=== PATIENT | female | born 1950 | race Hispanic/Latino ===

== ENCOUNTER 2020-01-27 11:09 | Inpatient (IN) | payer MEDICARE ==
[~2020-01-27] VITALS: Ht 152.4 cm; Wt 77.1 kg
--- NOTE | 2020-01-27 11:12 | Emergency Department Note ---
History of Present Illnes History of Present Illness Chief Complaint: General Medicine Complaints History of Present Illness This is a 69 year old female brought from dialysis center by [facility] for generalized weakness. Per son, patient had been increasingly week and had to be assisted from the floor this AM. Patient and son poor historian. Enroute per meganian patient was in atrial fibrillation with RVR with SPO2 of 85% . Seen at bedside with SR 85 bpm. Patient lethargic and unable to provide meaningful history . Historian: Family Member, Ancillary Services Manager/EMS Arrival Mode: [facility] Revenue Collector Required: Yes Onset (how long ago): day(s) (5) Severity: severe Progression: worsening Chronicity: new Context: Reports recent illness Relieving factors: none Exacerbating factors: none Associated symptoms: Reports weakness Past Medical/Family History Physician Review I have reviewed the patient's past medical and family history. Any updates have been documented here. Past Medical History Clinical Suspicion of Infectio: Yes New/Unexplained Change in Ment: Yes Past Medical History: Hypertension, ESRD, Depression Past Surgical History: None Social History Smoking Cessation: Never Smoker Alcohol Use: None Any Illegal Drug Use: No Review of Systems Review of Systems Constitutional: Reports weakness EENTM: Reports no symptoms Cardiovascular: Reports no symptoms Respiratory: Reports no symptoms Gastrointestinal: Reports no symptoms Genitourinary: Reports no symptoms Musculoskeletal: Reports no symptoms Integumentary: Reports no symptoms Neurological: Reports no symptoms Psychological: Reports no symptoms Endocrine: Reports no symptoms Hematological/Lymphatic: Reports no symptoms Physical Exam Related Data Allergies: Coded Allergies: No Known Allergies (Unverified , 01/27/20) Triage Vital Signs Vital Signs Date Time Temp Pulse Resp B/P (MAP) Pulse Ox O2 Delivery O2 Flow Rate FiO2 01/27/20 11:11 97.2 88 14 110/68 82 Nasal Cannula 6.0 Vital signs reviewed: Yes Physical Exam CONSTITUTIONAL Constitutional: Present morbidly obese, Present distressed, Present ill appearing HENT HENT: Present normocephalic, Present atraumatic, Present oropharynx clear/epi st, Present nose normal HENT L/R: Present left ext ear normal, Present right ext ear normal EYES Eyes: Reports PERRL, Reports conjunctivae normal NECK Neck: Present ROM normal PULMONARY Pulmonary: Present effort normal, Present breath sounds normal CARDIOVASCULAR Cardiovascular: Present regular rhythm, Present heart sounds normal, Present capillary refill normal, Present normal rate GASTROINTESTINAL Abdominal: Present soft, Present nontender, Present bowel sounds normal GENITOURINARY Genitourinary: Present exam deferred SKIN Skin: Present warm, Present dry MUSCULOSKELETAL Musculoskeletal: Present ROM normal, Present edema NEUROLOGICAL Neurological: Present no gross motor or sensory deficits, Present weakness PSYCHOLOGICAL Psychological: Present mood/affect normal, Present judgement normal Results Laboratory Lab results reviewed: Yes Imaging Imaging results reviewed: Yes Impressions [place] [id number] Patient Name: TAY HERNANDEZ MR #: [id number] : 1950 Age/Sex: 69/F Req #: [id number] Adm Physician: Ordered by: DINA ALDANA DO Report #: [id number] Location: ER Room/Bed: _ Procedure: [id number] DX/CHEST SINGLE (PORTABLE) Exam Date: 01/27/20 Exam Time: 1130 REPORT STATUS: Signed TECHNIQUE: Frontal view of the chest. INDICATION: ^ERMD ORDER ^[id number] ^1130 ^Y COMPARISON: None DISCUSSION: Limited evaluation due to portable technique. Lines and hardware: Multiple overlying EKG leads are noted Heart and mediastinum: Cardiomediastinal silhouette is mildly enlarged. Mild central vascular congestion is noted. Trachea projects midline. Thoracic aorta is tortuous with calcifications of the aortic knob. Lungs and pleura: Low lung volumes. Negative for focal consolidation, large effusion or pneumothorax. Soft tissues and bones: No acute abnormality. IMPRESSION: 1. Negative for acute intrathoracic process. 2. Cardiomegaly. Signed by: Jeimy Ramirez MD on 01/27/2020 12:23 PM Dictated By: JEIMY RAMIREZ MD [id number] Transcribed By: CARROLL on 01/27/20 1223 COPY TO: DINA ALDANA DO~ Procedures 12 Lead ECG Interpretation ECG Interpretation : ECG: ECG 1 Revenue Collector: Interpreted by ED physician Date: Jan 27, 2020 Time: 11:44 Prior ECG tracings: reviewed Rhythm: sinus rhythm Ectopy: PJC's Rate: normal BPM: 90 QRS axis: normal ST segments normal: Yes T waves normal: Yes Clinical Impression: non-specific ECG Central Line Placement Central Line Location: right femoral Time out performed: No Patient Placed on Monitor/Puls: Yes MD Prep: gloves Central Line Prep: Povidone-Iodine 1%, sterile drapes applied Central Line Lumen Inserted: triple Post Procedure: sutured in place, good blood return, all ports aspirated/flushed/capped, sterile dressing applied Post Procedure X-ray: tip of catheter in good condition Patient tolerated procedure: well Critical Care Time Total Critical Care Time (min): 31 Critcal care necessary due to: circulatory failure, metabolic failure, renal failure, respiratory failure, sepsis, shock Critcal care time spent by me: develop tx plan w patient/surrogate, discussion w consultants, discussion w primary provider, evaluation patient response to tx, examination of patient, obtaining hx from patient/surrogate, order/perform tx or interventions, order/review laboratory studies, order/review radiographic studies, pulse oximetry, re-evaluation of patient condition Assessment & Plan Medical Decision Making MDM Diff dx : hyperkalemia, sepsis, pneumonia, intracranial brain pathology, UTI, shock Reassessment Reassessment Case d/w Dr Nelson who states that his dialysis nurse will come and evaluate patient and will collect the peritoneal fluid. This was confirmed by his colleague Assessment & Plan Final Impression: (1) Sepsis (2) Hypokalemia (3) Anemia (4) Atrial fibrillation with RVR (5) ESRD on peritoneal dialysis Depart Disposition: ADMITTED Home Meds Active Scripts Cephalexin Monohydrate (KEFLEX) 500 Mg Capsule, 500 MG PO Q12H, #20 Prov:CHAYO ZAYAS MD 01/31/20 Reported Medications Furosemide (FUROSEMIDE) 40 Mg Tablet, 40 MG PO Daily, #30 TAB 01/27/20 Potassium Chloride (POTASSIUM CHLORIDE) 20 Meq Tab.er.prt, 20 MEQ PO DAILY 01/27/20 Glipizide (GLIPIZIDE) 5 Mg Tablet, 10 MG PO DAILY, TAB 01/27/20 Metformin Hcl (METFORMIN HCL) 500 Mg Tablet, 500 MG PO BID, #60 TAB 01/27/20 Calcitriol (CALCITRIOL) 0.5 Mcg Cap, 0.5 MG PO DAILY, CAP 01/27/20 Atorvastatin Calcium (ATORVASTATIN CALCIUM) 20 Mg Tablet, 40 MG PO HS, #30 TAB 01/27/20 Amitriptyline Hcl (AMITRIPTYLINE HCL) 25 Mg Tablet, 25 MG PO DAILY, #30 TAB 01/27/20 Hydralazine Hcl (HYDRALAZINE HCL) 10 Mg Tablet, 50 MG PO DAILY, #30 TAB 01/27/20 DINA ALDANA DO Jan 27, 2020 11:12
[2020-01-27] MEDS ORDERED: PIPER-TAZ 3.375 GM 50 ML IV STA (11:25)
[2020-01-27] MEDS ORDERED: SODIUM CHLORIDE 0.9% 1000ML 1,000 ML IV STA (11:35)
[2020-01-27 11:55] LABS: BASOPHILS % 0.3 % (0.0-1.0); EOSINOPHILS % 0.1 % (0.0-6.0); LYMPHOCYTES # (AUTO) 0.8 (1.0-3.2); LYMPHOCYTES % 7.8 % (18.0-39.1); MEAN CORPUSCULAR HEMOGLOBIN 28.7 pg (28-32); MEAN CORPUSCULAR HGB CONC 32.7 g/dL (31-35); MEAN CORPUSCULAR VOLUME 87.7 fL (81-99); MONOCYTES # (AUTO) 0.3 (0.2-0.8); MONOCYTES % 2.6 % (4.4-11.3); NEUTROPHILS # (AUTO) 8.5 (2.1-6.9); NEUTROPHILS % 88.6 % (38.7-80.0); PLATELET COUNT 328 x10e3/uL (140-360); RED BLOOD COUNT 1.95 x10e6/uL (3.6-5.1); RED CELL DISTRIBUTION WIDTH 15.1 % (11.7-14.4)
[2020-01-27 11:57] LABS: HEMOGLOBIN 5.6 g/dL (12.0-16.0)
[2020-01-27 11:58] LABS: HEMATOCRIT 17.1 % (34.2-44.1)
[2020-01-27] MEDS ORDERED: SODIUM CHLORIDE 0.9% 250ML 250 ML IV ONE (12:00)
[2020-01-27 12:08] LABS: INR 1.31; PROTHROMBIN TIME 16.9 seconds (11.9-14.5)
[2020-01-27 12:18] LABS: ALBUMIN 2.5 g/dL (3.5-5.0); ALBUMIN/GLOBULIN RATIO 0.9 (0.8-2.0); CREATININE, SERUM 8.31 mg/dL (0.57-1.11)
--- NOTE | 2020-01-27 12:27 | Diagnostic Imaging Report ---
TECHNIQUE: Frontal view of the chest. INDICATION: ^ERMD ORDER ^[id number] ^1130 ^Y COMPARISON: None DISCUSSION: Limited evaluation due to portable technique. Lines and hardware: Multiple overlying EKG leads are noted Heart and mediastinum: Cardiomediastinal silhouette is mildly enlarged. Mild central vascular congestion is noted. Trachea projects midline. Thoracic aorta is tortuous with calcifications of the aortic knob. Lungs and pleura: Low lung volumes. Negative for focal consolidation, large effusion or pneumothorax. Soft tissues and bones: No acute abnormality. IMPRESSION: 1. Negative for acute intrathoracic process. 2. Cardiomegaly. Signed by: Dylan Ramirez MD on 01/27/2020 12:23 PM
[2020-01-27] MEDS ORDERED: SODIUM CHLORIDE 0.9% 1000ML 1,000 ML IV SCH (12:30)
[2020-01-27] MEDS ORDERED: SODIUM CHLORIDE FLUSH 10 ML SYR INJ PRN (12:30)
[2020-01-27 12:36] LABS: B-TYPE NATRIURETIC PEPTIDE2 217.7 pg/mL (0-100)
[2020-01-27 12:38] LABS: ABG HCO3 19 mmol/L (22-26); ABG PCO2 26 mmHg (35-45); ABG PH 7.48 (7.35-7.45); ABG PO2 202 mmHg (80-105); ABG TCO2 20
[2020-01-27 12:40] LABS: CREATINE KINASE MB 2.5 ng/mL (0-5.0)
--- OUTSIDE RECORDS SUMMARY | 2020-01-27 12:41 | XMS REPORT | Clinical Summary ---
Author Author [facility] Organization [facility] Address Unknown Phone Unavailable Care Team Providers Care Preschool Assistant Director Name Role Phone Asked, No Pcp PCP Unavailable Allergies No Known Allergies Medications End Date Status Medication Sig Dispensed Refills Start Date Active potassium chloride Take 20 mEq 0 (K-DUR) 10 MEQ CR tablet by mouth daily. Active calcitrioL (ROCALTROL) Take 1 mcg by 0 0.5 MCG capsule mouth daily. Active ferric citrate (AURYXIA Take 420 mg 0 ORAL) by mouth 3 (three) times a day with meals. Active furosemide (LASIX) 40 mg Take 40 mg by 0 tablet mouth 2 (two) times a day. 08/29/2019 Discontinued (Stop Taking at Discharge) carvediloL (COREG) 25 MG Take 25 mg by 0 tablet mouth 2 (two) times a day with meals. 08/29/2019 Discontinued (Reorder) glipiZIDE (GLUCOTROL) 10 Take 10 mg by 0 MG tablet mouth 2 (two) times a day before meals. 08/29/2019 Discontinued (Reorder) atorvastatin (LIPITOR) 40 Take 40 mg by 0 MG tablet mouth nightly. 08/29/2019 Discontinued (Reorder) amitriptyline (ELAVIL) 25 Take 25 mg by 0 MG tablet mouth nightly. 08/29/2019 Discontinued (Stop Taking at Discharge) cefdinir (OMNICEF) 300 MG Take 300 mg 0 capsule by mouth daily. 09/28/2019 atorvastatin (LIPITOR) 40 Take 1 tablet 30 tablet 0 202 MG tablet (40 mg total) 0 by mouth nightly for 30 days. 09/28/2019 glipiZIDE (GLUCOTROL) 10 Take 1 tablet 60 tablet 0 202 MG tablet (10 mg total) 0 by mouth 2 (two) times a day before meals for 30 days. 09/28/2019 amitriptyline (ELAVIL) 25 Take 1 tablet 30 tablet 0 MG tablet (25 mg total) 0 by mouth nightly for 30 days. 09/28/2019 carvediloL (COREG) 6.25 Take 1 tablet 60 tablet 0 MG tablet (6.25 mg 0 total) by mouth 2 (two) times a day with meals for 30 days. 09/29/2019 aspirin 81 mg chewable Chew 1 tablet 30 tablet 0 0 tablet (81 mg total) 0 daily for 30 days. Active Problems Problem Noted Date Acute renal failure (ARF) 08/28/2019 Encounters Care Team Description Date Type Specialty Rigo Leung MD Abouelsaad, Mai Abdelmoneim E.S, MD ESRD (end stage renal disease) on dialys is (HCC) (Primary Dx); Weakness 08/28/2019 Hospital General Internal Pr jessica - Encounter 08/29/2019 Melissa Sellers NP 08/28/2019 Orders Only General Internal Me dicine after 01/26/2019 Social History Date Tobacco Use Types Packs/Day Years Used Never Smoker Smokeless Tobacco: Never Used Drinks/Week oz/Week Comments Alcohol Use Never Alcohol Habits Answer Date Recorded How often do you have a drink containing alcohol? Never 08/28/2019 How many drinks containing alcohol do you have on No t asked a typical day when you are drinking? How often do you have six or more drinks on one Not asked occasion? Sex Assigned at Date Recorded Not on file Industry Job Start Date Occupation Not on file Not on file Not on file Travel End Travel History Travel Start No recent travel history available. Last Filed Vital Signs Reading Time Taken Comments Vital Sign 109/53 08/29/2019 10:34 AM CDT Blood Pressure 72 08/29/2019 10:34 AM CDT Pulse 36.3 C (97.4 F) 08/29/2019 10:34 AM CDT Temperature 16 08/29/2019 10:34 AM CDT Respiratory Rate 100% 08/29/2019 10:34 AM CDT Oxygen Saturation - - Inhaled Oxygen Concentration 82.2 kg (181 lb 3.5 oz) 08/28/2019 8:04 PM CDT Weight 157.5 cm (5' 2") 08/28/2019 8:04 PM CDT Height 33.15 08/28/2019 8:04 PM CDT Body Mass Index Plan of Treatment Health Maintenance Due Date Last Done Comments DIABETIC RETINAL EYE EXAM 1951 DIABETIC FOOT EXAM 1961 URINE MICROALBUMIN 1961 BREAST CANCER SCREENING 2001 COLONOSCOPY SCREENING 2001 SHINGLES VACCINES (#1) 2001 65+ PNEUMOCOCCAL VACCINE 2016 08/25/2018 (2 of 2 - PPSV23) INFLUENZA VACCINE 02/13/2020 Procedures Comments Procedure Name Priority Date/Time Associated Diag nosis POC GLUCOSE Routine 08/29/2019 11:04 AM CDT POC GLUCOSE Routine 08/29/2019 6:21 AM CDT ESTIMATED GFR Routine 08/29/2019 5:56 AM CDT BASIC METABOLIC PANEL Routine 08/29/2019 5:56 AM CDT HC COMPLETE BLD COUNT Routine 08/29/2019 W/AUTO DIFF 5:56 AM CDT TROPONIN Timed 08/29/2019 2:03 AM CDT HEPATITIS B SURFACE AB, Routine 08/28/2019 QUANTITATIVE 11:00 PM CDT HEPATITIS B SURFACE STAT 08/28/2019 ANTIGEN 11:00 PM CDT POC GLUCOSE Routine 08/28/2019 9:[address] HEAD WO CONTRAST Routine 08/28/2019 8:51 PM CDT ESTIMATED GFR STAT 08/28/2019 8:34 PM CDT TROPONIN STAT 08/28/2019 8:34 PM CDT PROTHROMBIN TIME WITH INR STAT 08/28/2019 8:34 PM CDT LIPID PANEL STAT 08/28/2019 8:34 PM CDT COMPREHENSIVE METABOLIC STAT 08/28/2019 PANEL 8:34 PM CDT HC COMPLETE BLD COUNT STAT 08/28/2019 W/AUTO DIFF 8:34 PM CDT B NATRIURETIC PEPTIDE STAT 08/28/2019 8:34 PM CDT ECG 12-LEAD STAT 08/28/2019 8:20 PM CDT after 01/26/2019 Results * POC glucose (08/29/2019 11:04 AM CDT) Only the most recent of 3 results within the time period is included. [facility] POC glucose 207 (H) 65 - 100 mg/dL [place] Comment: CONGREGATIONAL Shuffle Board Operator Name: Sue Frias MULBERRY Device ID: [id number] HOSPITAL Specimen Blood Performing Organization Address City/[facility] Ph one Number [facility] DEPARTMENT OF [address] [place] [address] PATHOLOGY AND [facility] MEDICINE [address] * Estimated GFR (08/29/2019 5:56 AM CDT) Only the most recent of 2 results within the time period is included. [facility] Estimated GFR 6 (A) mL/min/1.73 m2 [place] Comment: CONGREGATIONAL Catergory Units [facility] G1 >=90 Normal or high G2 60-89 Mildly decreased G3a 45-59 Mildly to moderately decreased G3b 30-44 Moderately to severely decreased G4 15-29 Severely decreased G5 <15 Kidney failure The eGFR was calculated using the Chronic Kidney Disease Epidemiology Collaboration (CKD-EPI) equation. Interpretation is based on recommendations of the National Kidney Foundation-Kidney Disease Outcomes Quality Initiative (NKF-KDOQI) published in 2014. Specimen Performing Organization Address City/State/Zipcode Ph one Number [facility] DEPARTMENT OF [address] [place] [address] PATHOLOGY AND GENOMIC MEDICINE [address] * CBC with platelet and differential (08/29/2019 5:56 AM CDT) Only the most recent of 2 results within the time period is included. Pathologist [facility] WBC 7.1 4.2 - 11.0 k/uL [facility] RBC 3.04 (L) 4.04 - 5.86 m/uL [facility] HGB 9.1 (L) 11.5 - 15.3 g/dL [facility] HCT 28.3 (L) 34.0 - 45.0 % [facility] MCV 93.1 80.0 - 98.0 fL [facility] MCH 29.9 27.0 - 34.0 pg [facility] MCHC 32.2 31.5 - 36.5 g/dL [facility] RDW - SD 48.3 37.0 - 51.0 fL [facility] MPV 8.2 7.4 - 10.4 fL [facility] Platelet count 376 150 - 400 k/uL [facility] Nucleated RBC 0.00 /100 WBC [facility] Neutrophils 64.6 36.0 - 66.0 % [facility] Lymphocytes 23.6 (L) 24.0 - 44.0 % [facility] Monocytes 6.6 (H) 0.0 - 6.0 % [facility] Eosinophils 3.9 0.0 - 6.0 % [facility] Basophils 1.0 0.0 - 1.2 % [facility] Immature 0.3 0.0 - 1.0 % [place] granulocytes [facility] Specimen Blood Performing Organization Address City/State/Zipcode Ph one Number [facility] DEPARTMENT OF [address] [place] [address] PATHOLOGY AND GENOMIC MEDICINE [facility] [address] * Basic metabolic panel (08/29/2019 5:56 AM CDT) Sodium 135 135 - 150 mEq/L [facility] Potassium 3.6 3.5 - 5.0 mEq/L [facility] Chloride 93 (L) 98 - 112 mEq/L [facility] CO2 25 24 - 31 mmol/L [facility] Anion gap 17@ANIO (H) 7 - 15 mEq/L [facility] BUN 36 (H) 7 - 18 mg/dL [facility] Creatinine 6.40 (H) 0.50 - 0.90 mg/dL [facility] Glucose 217 (H) 65 - 100 mg/dL [facility] Calcium 7.6 (L) 8.8 - 10.2 mg/dL [facility] Specimen Blood Performing Organization Address City/State/[facility] Ph one Number [facility] DEPARTMENT OF [address] [place] [address] PATHOLOGY AND GENOMIC MEDICINE [facility] [address] * Troponin (08/29/2019 2:03 AM CDT) Only the most recent of 2 results within the time period is included. Troponin 0.020 0.000 - 0.040 ng/mL [place] Comment: CONGREGATIONAL In patients suspected of MULBERRY having a myocardial HOSPITAL infarction, along with all other appropriate clinical measures and actions including ECG and other diagnostics as appropriate, measure Ultra TnI at 0 hrs and at 3 hrs. Myocardial infarction VERY LIKELY The 0 hr TnI level is > 0.10 ng/mL Myocardial infarction LIKELY The 0 hr TnI level is > 0.04 ng/mL and 3 hr level is increased or decreased by at least 0.020 ng/mL Myocardial infarction VERY UNLIKELY Both the 0 hr and 3 hr TnI levels <= 0.04 ng/mL(within normal limits) OR 0 hr is > 0.04 ng/mL and 3 hr is increased OR decreased by less than 0.020 ng/mL Specimen Blood Performing Organization Address City/[facility] Ph one Number [facility] [address] [place] [address] PATHOLOGY AND GENOMIC MEDICINE [address] * Hepatitis B surface Ab, quantitative (08/28/2019 11:00 PM CDT) Hepatitis B 494.43 IU/L [facility] surface Ab Comment: The anti-HBs is greater than or equal to 10 IU/L. This patient has either had an antibody response to HBV vaccination, received a transfusion, or has recovered from HBV infection. This patient should be considered immune to hepatitis B. An anti-HBs result greater than or equal to 10 IU/L implies immunity. For post-vaccination antibody testing guidelines for the general public refer to MMWR May 06, 2005/Vol. 54(No. 16);-23, and for healthcare workers refer to MMWR May 03, 2013/Vol. 62(No. 10);-19. Reference Interval: anti-HBs 9.99 IU/L or less ....... Negative 10.00 IU/L or greater .... Positive Results greater than 1,000.00 IU/L are reported as greater than 1,000.00 IU/L. This assay should not be used for blood donor screening, associated re-entry protocols, or for screening Human Cell, Tissues and Cellular and Tissue-Based Products (HCT/P). Performed by [facility], [address] [place] [id number] [email or web address], Mikael Matias MD, Lab. Director Specimen Serum Performing Organization Address [facility] Ph one Number [facility] [address] [place] [address] [facility] REF LAB [address] [place] [address] * Hepatitis B surface antigen (08/28/2019 11:00 PM CDT) Hepatitis B Non-reactive Non-reactive [place] surface Ag [facility] Specimen Blood Performing Organization Address City/[facility]/Zipcode Ph one Number [facility] DEPARTMENT OF [address] [place] [address] PATHOLOGY AND GENOMIC MEDICINE [facility] [address] [place] [address] HOSPITAL * CT Head Wo Contrast (08/28/2019 8:51 PM CDT) Specimen Narrative Performed At EXAM: CT HEAD WO CONTRAST RADIANT CLINICAL HISTORY: Dizziness TECHNIQUE: Noncontrast enhanced images of the brain were obtained from the skull base to the vertex. Both soft tissue an d bone reconstruction algorithms were performed. CT scans are performed using radiation dose reduction techniques (iterative reconstruction and/or automated exposur e control). Technical factors are evaluated and adjusted to ensure approp riate moderation of exposure. Automated dose management technology is applied to adjust radiation exposure while achieving a diagnostic quality image. COMPARISON: None. FINDINGS: The larkin-white matter differentiation i s preserved and without evidence of acute territorial infarction. 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 Sulci and ventricles are prominent from age-related parenchymal volume loss. In addition, there is scattered subcortica l and deep white matter hypoattenuation, likely reflective of chronic small vess el ischemic changes. There is no evidence for acute intracra nial hemorrhage, mass, mass effect, hydrocephalus, or extra-axial fluid col lection. Partially empty sella noted. Orbits are unremarkable. Paranasal si nuses are clear. Likely small sebaceous cyst noted overlying the right zygomati cofacial complex. Mastoid air cells are normally pneumatized. Vascular calcif ications are noted, most prominent within the bilateral cavernous ICAs. Osseous structures ar e intact. IMPRESSION: No CT evidence for acute intracranial a bnormality. Chronic findings as detailed above. [facility]-[id number] Procedure Note Interface, Radiology Results Incoming - 08/28/2019 8:57 PM CDT EXAM: CT HEAD WO CONTRAST CLINICAL HISTORY: Dizziness TECHNIQUE: Noncontrast enhanced images of the brain were obtained from the skull base to the vertex. Both soft tissue and bone reconstruction algorithms were performed. CT scans are performed using radiation dose reduction techniques (iterative reconstruction and/or automated exposure control). Technical factors are evaluated and adjusted to ensure appropriate moderation of exposure. Automated dose management technology is applied to adjust radiation exposure while achieving a diagnostic quality image. COMPARISON: None. FINDINGS: The larkin-white matter differentiation is preserved and without evidence of acute territorial infarction. Note is made of a prior left striatocapsular infarct with ex vacuo dilatation of the left lateral ventricular frontal horn. Sulci and ventricles are prominent from age-related parenchymal volume loss. In addition, there is scattered subcortical and deep white matter hypoattenuation, likely reflective of chronic small vessel ischemic changes. There is no evidence for acute intracranial hemorrhage, mass, mass effect, hydrocephalus, or extra-axial fluid collection. Partially empty sella noted. Orbits are unremarkable. Paranasal sinuses are clear. Likely small sebaceous cyst noted overlying the right zygomaticofacial complex. Mastoid air cells are normally pneumatized. Vascular calcifications are noted, most prominent within the bilateral cavernous ICAs. Osseous structures are intact. IMPRESSION: No CT evidence for acute intracranial abnormality. Chronic findings as detailed above. [facility]-[id number] Performing Organization Address [facility] Ph one Number [facility] [address] [place] [address] * Prothrombin time with INR (08/28/2019 8:34 PM CDT) Prothrombin 14.8 (H) 11.5 - 14.5 sec [facility] INR 1.16 [place] Comment: CON[place] For patients on anticoagulant MULBERRY therapy, reference ranges HOSPITAL below: Indication: INR Value Treatment of Venous Thrombosis, 2.0-3.0 pulmonary emboli, or prophylaxis of a venous thrombosis, or systemic emboli. High dose, high risk patients 3.0-4.5 with mechanical valves. NOTE: INR values over 3.0 are sometimes associated with gastrointestinal hemorrhage, especially values over 4.0. Specimen Blood Performing Organization Address [facility] Ph one Number [facility] DEPARTMENT OF [address] [place] [address] PATHOLOGY AND GENOMIC MEDICINE [facility] [address] [address] * B natriuretic peptide (08/28/2019 8:34 PM CDT) BNP 97 0 - 100 pg/mL [facility] Specimen Blood Performing Organization Address [facility] Ph one Number [facility] DEPARTMENT OF [address] [place] [address] PATHOLOGY AND GENOMIC MEDICINE [facility] [address] * Lipid panel (08/28/2019 8:34 PM CDT) Cholesterol 80 0 - 199 mg/dL [facility] Triglycerides 87 0 - 149 mg/dL [facility] HDL cholesterol 26 (L) 40 - 9,999 mg/dL [facility] LDL cholesterol 41Comment: Result obtained by 0 - 99 mg/dL [place] direct LDL measurement [facility] Lipid panel See below [place] interpretation Comment: CONGREGATIONAL Total Cholesterol (mg/dL) [place] LDL Cholesterol HOSPITAL (mg/dL) <200 Desirable <100 Optimal 200-239 Borderline-high 100-129 Near or above optimal >=240 High 130-159 Borderline-high 160-189 High >=190 Very high HDL Cholesterol (mg/dL) Triglycerides (mg/dL) <40 Low <150 Normal >=60 High 150-199 Borderline-high 200-499 High >=500 Very high Risk Catergories that modify LDL goals. Risk Catergories LDL goal (mg/dL) CHD and CHD risk equivalent <100 (10-year risk >20%) Multiple (2+) risk factors <130 (10-year risk =<20%) 0-1 risk factors <160 (<10-year risk) Defining levels of lipids in metabolic syndrome Triglycerides >=150 mg/dL HDL Cholesterol Men <40 mg/dL Women <50 mg/dL Non-HDL cholesterol is a second target for therapy in persons with high triglycerides (>=200 mg/dL) Specimen Blood Performing Organization Address City/State/[facility] Ph one Number [facility] DEPARTMENT OF [address] [place] [id number] PATHOLOGY AND GENOMIC MEDICINE [facility] [address] * Comprehensive metabolic panel (08/28/2019 8:34 PM CDT) Sodium 135 135 - 150 mEq/L [facility] Potassium 3.2 (L) 3.5 - 5.0 mEq/L [facility] Chloride 92 (L) 98 - 112 mEq/L [facility] CO2 24 24 - 31 mmol/L [facility] Anion gap 19@ANIO (H) 7 - 15 mEq/L [facility] BUN 37 (H) 7 - 18 mg/dL [facility] Creatinine 6.60 (H) 0.50 - 0.90 mg/dL [facility] Glucose 95 65 - 100 mg/dL [facility] Calcium 7.6 (L) 8.8 - 10.2 mg/dL [facility] Protein 6.6 6.3 - 8.3 g/dL [facility] Albumin 2.1 (L) 3.5 - 5.0 g/dL [facility] A/G ratio 0.5 (L) 0.7 - 3.8 [facility] Alkaline 147 (H) 0 - 104 U/L [place] phosphatase [facility] AST 19 10 - 35 U/L [facility] ALT 16 5 - 50 U/L [facility] Total bilirubin 0.4 0.2 - 1.2 mg/dL [facility] Specimen Blood Performing Organization Address City/[facility] Ph one [facility] DEPARTMENT OF [address] [place] [address] PATHOLOGY AND GENOMIC MEDICINE [facility] [address] * ECG 12 lead (08/28/2019 8:20 PM CDT) Ventricular 101 [facility] rate Atrial rate 101 [facility] OH interval 166 [facility] QRSD interval 90 [facility] QT interval 368 [facility] QTC interval 477 [facility] P axis 1 34 [facility] QRS axis 1 10 [facility] T wave axis 73 [facility] EKG impression Sinus tachycardia-Cannot rule [facility] MUS E out Anterior infarct , age undetermined-Nonspecific ST and T wave abnormality-No previous ECGs available- Specimen Narrative Performed At This result has an attachment that is n ot available. 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
--- OUTSIDE RECORDS SUMMARY | 2020-01-27 12:41 | XMS REPORT | Clinical Summary ---
Author Author [facility] Address Unknown Phone Unavailable Care Team Providers Care Supervisor [employer] Name Role Phone YahairaMoises lang Nasima PCP Jose Antonio Nelson 25 Allergies No Known Allergies Medications End Date Status Medication Sig Dispensed Refills Start Date Active calcitriol (ROCALTROL) Take 0.25 mcg 0 0.25 MCG capsule by mouth daily. Active glipiZIDE (GLUCOTROL) 10 Take 10 mg by 0 MG tablet mouth 2 (two) times daily before meals. Active allopurinol (ZYLOPRIM) Take 100 mg 0 100 MG tablet by mouth daily. Active atorvastatin (LIPITOR) 40 Take 40 mg by 0 MG tablet mouth daily. Active furosemide (LASIX) 40 MG Take 20 mg by 0 tablet mouth 2 (two) times daily . Active hydrALAZINE (APRESOLINE) Take 50 mg by 0 100 MG tablet mouth 3 (three) times daily . Active amitriptyline (ELAVIL) 25 Take 25 mg by 0 MG tablet mouth nightly. Active NIFEdipine (ADALAT CC) 30 Take 30 mg by 0 MG 24 hr tablet mouth daily. Active aspirin 81 MG EC tablet Take 81 mg by 0 mouth daily. Active metoprolol (LOPRESSOR) 50 Take 50 mg by 0 MG tablet mouth 2 (two) times daily. Active ferric citrate (AURYXIA Take 210 mg 0 ORAL) by mouth 2 (two) times daily. Active Problems Problem Noted Date Pre-transplant evaluation for chronic kidney disease 02/19/2018 Controlled type 2 diabetes mellitus with stage 5 urology surgeon len kidney disease not 02/19/2018 on chronic dialysis, without long-term current use of insulin Essential hypertension 02/19/2018 CKD (chronic kidney disease) stage 5, GFR less than 1 5 ml/min 02/19/2018 Secondary hyperparathyroidism of renal origin 2017 Hyperlipidemia, unspecified hyperlipidemia type 12/2017 Encounters Care Team Description Date Type Specialty Lulu Rolle RN 08/21/2019 Abstract Transplant Lulu Rolle RN 08/01/2019 Documentation Transplant Lulu Rolle RN 08/01/2019 Telephone Transplant Jam Jewell MD Pre-transplant evaluation for ESRD (end stage renal disease) (Primary Dx); SOB (shortness of breath); Essential hypertension 07/03/2019 Orders Only Cardiology Jam Jewell MD No Show 04/22/2019 Hospital Radiology Encounter Lulu Rolle RN 04/18/2019 Documentation Transplant Jam Jewell MD Pre-transplant evaluation for ESRD (end stage renal disease) (Primary Dx); Diastolic dysfunction without heart failure; SOB (shortness of breath) 04/15/2019 Orders Only Cardiology Lulu Rolle RN 03/20/2019 Documentation Transplant Lulu Rolle RN 03/20/2019 Documentation Transplant Lulu Rolle RN 03/20/2019 Telephone Transplant Lulu Rolle RN 03/19/2019 Abstract Transplant Lulu Rolle RN 03/19/2019 Telephone Transplant after 01/26/2019 Family History Medical History Relation Name Comments Diabetes Brother Diabetes Daughter Alzheimer's disease Father at 72 Diabetes Mother at 56 years of complications of diabetes Unremarkable Sister Diabetes Son Relation Name Status Comments Brother Alive Daughter Alive Father Mother Sister Alive Son Alive Social History Date Tobacco Use Types Packs/Day Years Used Never Smoker Smokeless Tobacco: Never Used Alcohol Use Drinks/Week oz/Week Comments No Sex Assigned at Date Recorded Not on file Industry Job Start Date Occupation Not on file Not on file Not on file Travel End Travel History Travel Start No recent travel history available. Last Filed Vital Signs Not on file Plan of Treatment Health Maintenance Due Date Last Done Comments BREAST CANCER SCREENING 1951 DIABETIC EYE EXAM 1961 DIABETIC FOOT EXAM 1961 URINE MICROALBUMIN 1961 PNEUMOCOCCAL 65+ 10/20/2018 08/25/2018, 017 HIGH/HIGHEST RISK (2 of 2 - PPSV23) HEMOGLOBIN A1C 11/07/2018 2018, 018 COLON CANCER SCREENING 2019 2018, ANNUAL FOBT MEDICARE ANNUAL WELLNESS 05/16/2019 (YEAR 2 or FIRST YEAR if no IPPE) INFLUENZA VACCINE (#1) 2020 Results Not on fileafter 01/26/2019 Insurance Payer Benefit Subscriber ID Type Phone Address Plan / Group MEDICAID - MEDICAID [facility] xxxxxxxxx Medica id CARE COMM STAR Contracted PLAN [facility] xxxxxxxxx MEDICARE MGD CARE MEDICARE O MEDICAID MEDICAID xxxxxxxxx Medicaid [facility] OPTUM NON UNITED - OPTUM xxxxxxxxx MEDICAID MGD CARE NON-[facility] xxxxxxxxx [place]IC[place] [id number]
--- OUTSIDE RECORDS SUMMARY | 2020-01-27 12:41 | XMS REPORT | Continuity of Care Document ---
Author Author [facility] t Organization [facility] Address [address] [place] [address] Phone Unavailable Care Team Providers Care Linter Saw Sharpener Name Role Phone Nasima Jung PCP DINA ALDANA Attphys Unavailable Erich VAZQUEZ, Nasima De Leon Attphys Darell VAZQUEZ, Kira Wahl Attphys Xochitl VAZQUEZ, Rigo Attphys Babita VAZQUEZ, Corrine Mena Mai Attphys [phone] Marlo BOX STAMPER, Melissa Attphys Sariah TOUSSAINT, Lulu Attphys Unavailable Best VAZQUEZ, Jam Attphys NYASIA CONNOLLY Attphys Unavailable LINDA VAZQUEZ Admphys Unavailable RIGO LEUNG Admphys Unavailable Payers Payer Name Policy Type Policy Number Effective Date Expiration Date Be dickerson [employer] MEDICAREUNITED HEALTHC ARE [id number] [address] xxxxxxxxx 2014 00:00:00 [facility] (MEDICARE-MEDICAID PLAN)xxxx /05/2019-PresentHMO xxxxxxxxx 2019 00:00:00 [facility] MEDICAID - MEDICAID M[facility] STAR PLANxxxxxxxxxMe dicaid Contracted xxxxxxxxx [facility] - MEDICARE MGD CAREUNITED MEDICARE HMOxxxxxxxxx xxxxxxxxx [facility] MEDICAIDMEDICAID OF [place]xxxxxxxxxMedicaid xxxxxxxxx [facility] OPTUM NON [place] - MEDICAID [place]GD CAREOPTUM NON-[place] STARxxxxxxx xx xxxxxxxxx [facility] [address] [place] Problems Condition Name Condition Details Condition Category Status Onset Date Resolution Date Last Treatment Date Treating Clinician Comments Source Acute renal failure (ARF) Acute renal failure (ARF) Disease Ac tive 2019-08-28 00:00:00 Quinten Barry Pre-transplant evaluation for chronic kidney disease P re-transplant evaluation for chronic kidney disease Disease Active 2018-02-19 00:00:00 [facility] Controlled type 2 diabetes mellitus with stage 5 chronic kidney disease not on chronic dialysis, without long-term current use of insulin Controlled type 2 diabetes mellitus with stage 5 chronic kidney disease not on chronic dialysis, without long-term current use of insulin Disease Active 2018-02-19 00:00: 00 [facility] [address] [place] Essential hypertension Essential hypertension Disease Active 2018-02-19 00:00:00 [facility] CKD (chronic kidney disease) stage 5, GFR less than 15 ml/min CKD (chronic kidney disease) stage 5, GFR less than 15 ml/min Disease Active 2018-02-19 00:00:00 [facility] Secondary hyperparathyroidism of renal origin Secondar y hyperparathyroidism of renal origin Disease Active 2018-02-19 00:00:00 [facility] Hyperlipidemia, unspecified hyperlipidemia type Hyperl ipidemia, unspecified hyperlipidemia type Disease Active 2018-02-19 00:00:00 [facility] BMI 36.0-36.9,adult BMI 36.0-36.9,adult Disease Active 2014-12-30 00:00 :00 [facility] Dietary surveillance and counseling Dietary surveillance and cou nseling Disease Active 2014-12-30 [facility]:00 [facility] Back pain with radiation Back pain with radiation Disease Acti ve 2012-04-09 00:00:00 [facility] Knee pain Knee pain Disease Active 2012-04-09 00:00:00 [facility] Neck pain Neck pain Disease Active 2009-07-15 00:00:00 [facility] Arthralgia of multiple joints Arthralgia of multiple joints Disease Active 2008-09-03 00:00:00 [facility] Diabetes mellitus type II, uncontrolled Diabetes mellitus ty pe II, uncontrolled Disease Active 2006-03-27 00:00:00 [facility] Hypertension Hypertension Disease Active [facility] Hypertriglyceridemia Hypertriglyceridemia Disease Active [facility] Insomnia Insomnia Disease Active [facility] Atrophic vaginitis Atrophic vaginitis Disease Active [facility] Allergies, Adverse Reactions, Alerts Allergy Name Allergy Type Status Severity Reaction(s) Onset Date Inacti ve Date Treating Clinician Comments Source No Known Allergies DA Active U 2019-08-28 00:00:00 [facility] No Known Allergies DA Active U 2018-09-15 00:00:00 [facility] No Known Allergies DA Active U 2017-04-03 00:00:00 [facility] Family History Family Member Diagnosis Comments Start Date Stop Date Source Natural brother Diabetes [facility] Natural daughter Diabetes [facility] Natural father Alzheimer's disease C [facility] Natural sister Unremarkable [facility] Natural son Diabetes [facility] Social History Social Habit Start Date Stop Date Quantity Comments Source History SDOH Alcohol Std Drinks [facility] History SDOH Alcohol Binge [facility] Sex Assigned At [facility] Alcohol intake 2019-12-03 00:00:00 2019-12-03 00:00:00 Current non-drinker of alcohol (finding) [facility] History SDOH Alcohol Frequency 2019-08-28 00:00:00 2019-08-28 00:00:0 0 1 [facility] History SDOH Food Worry 2018-01-23 00:00:00 2018-01-23 00:00:00 1 [facility] History SDOH Food Scarcity 2018-01-23 00:00:00 2018-01-23 00:00:00 1 [facility] Smoking Status Start Date Stop Date Source Never smoker [facility] Medications Ordered Medication Name Filled Medication Name Start Date Stop Da te Current Medication? Ordering Clinician Indication Dosage Frequency Signature (SIG) Comments Components Source metFORMIN (GLUCOPHAGE XR) 500 mg ER extended release tablet 2019-12-03 00:00:00 Yes Type 2 diabetes mellitus with hyperglycemia, without long-term current use of insulin 500mg Q.5D Take 1 tablet by mouth 2 times buffy y. [facility] naproxen (NAPROSYN) 500 mg tablet 2019-12-03 00:00:00 Yes Bilateral low back pain with sciatica, sciatica laterality unspecified, unspecified chronicity 500mg Take 1 tablet by mouth 2 times daily (with meal s). [facility] gabapentin (NEURONTIN) 100 mg capsule 2019-12-03 00:00:00 Yes Neuropathy 100mg Take 1 capsule by mouth 3 times daily. [facility] glipiZIDE (GLUCOTROL) 10 mg tablet 2019-10-03 00:00:00 Yes Type 2 diabetes mellitus with hyperglycemia, without long-term current use of insulin 10mg Q.5D Take 1 tablet by mouth 2 times daily (before meals). [facility] aspirin 81 mg chewable tablet 2019-08-30 00:00:00 2019-09-29 23: 59:00 No 81mg QD Chew 1 tablet (81 mg total) daily for 30 days. [facility] potassium chloride (K-DUR) 10 MEQ CR tablet 2019-08-29 15:34:30 Yes 20meq QD Take 20 mEq by mouth daily. Quinten Alonso calcitrioL (ROCALTROL) 0.5 MCG capsule 2019-08-29 15:34:30 Yes 1ug QD Take 1 mcg by mouth daily. [facility] ferric citrate (AURYXIA ORAL) 2019-08-29 15:34:30 Yes 420mg [id number] Take 420 mg by mouth 3 (three) times a day with meals. Quinten Alonso furosemide (LASIX) 40 mg tablet 2019-08-29 15:34:30 Yes 40mg Q.5D Take 40 mg by mouth 2 (two) times a day. Ivanna Alonso carvediloL (COREG) 25 MG tablet 2019-08-29 15:34:30 00:00:00 No 25mg Q.5D Take 25 mg by mouth 2 (two) times a day with me als. Quinten Alonso cefdinir (OMNICEF) 300 MG capsule 2019-08-29 15:34:30 2019 00:00:00 No 300mg QD Take 300 mg by mouth daily. Quinten Alonso glipiZIDE (GLUCOTROL) 10 MG tablet 2019-08-29 13:42:31 202 00:00:00 No 10mg Q.5D Take 10 mg by mouth 2 (two) times a day before meals. Quinten Alonso atorvastatin (LIPITOR) 40 MG tablet 2019-08-29 13:42:3 1 2019-08-29 00:00:00 No 40mg QD Take 40 mg by mouth nightly. Quinten Alonso amitriptyline (ELAVIL) 25 MG tablet 2019-08-29 13:42:3 1 2019-08-29 00:00:00 No 25mg QD Take 25 mg by mouth nightly. Quinten Alonso atorvastatin (LIPITOR) 40 MG tablet 2019-08-29 00:00:0 0 2019-09-28 23:59:00 No 40mg QD Take 1 tablet (40 mg total) by mouth nig htly for 30 days. Quinten Alonso glipiZIDE (GLUCOTROL) 10 MG tablet 2019-08-29 00:00:00 202 23:59:00 No 10mg Q.5D Take 1 tablet (1 0 mg total) by mouth 2 (two) times a day before meals for 30 days. Quinten Alonso amitriptyline (ELAVIL) 25 MG tablet 2019-08-29 00:00:0 0 2019-09-28 23:59:00 No 25mg QD Take 1 tablet (25 mg total) by mouth nig htly for 30 days. Quinten Alonso carvediloL (COREG) 6.25 MG tablet 2019-08-29 00:00:00 2019 23:59:00 No 6.25mg Q.5D Take 1 tablet (6 .25 mg total) by mouth 2 (two) times a day with meals for 30 days. [facility] furosemide (LASIX) 40 mg tablet 2019-07-19 00:00:00 Yes Localized edema 40mg Q.5D Take 1 tablet by mouth 2 times daily. [facility] carvediloL (COREG) 25 mg tablet 2019-07-19 00:00:00 Yes Essential hypertension with goal blood pressure less than 130/85 25mg Take 1 tablet by mouth 2 times daily (with meals). [facility] furosemide (LASIX) 40 mg tablet 2019-02-25 00:00:00 Yes Acute renal failure with acute tubular necrosis superimposed on stage 5 chronic kidney disease, not on chronic dialysis 40mg Q.5D Take 1 tablet by mouth 2 times daily. [facility] amitriptyline (ELAVIL) 25 mg tablet 2019-02-25 00:00:00 Yes Neuropathic pain syndrome (non-herpetic) 25mg Take 1 tabl et by mouth at bedtime nightly at bedtime (1 tablet = 25 mg). [place] Jake ames allopurinol (ZYLOPRIM) 100 mg tablet 2019-02-25 00:00:00 Yes Idiopathic gout, unspecified chronicity, unspecified site 100mg QD Take 1 tablet by mouth daily. [facility] atorvastatin (LIPITOR) 40 mg tablet 2019-02-25 00:00:00 Yes Mixed hyperlipidemia 40mg Take 1 tablet by mouth at bedtime nightly. [facility] walker Misc 2019-02-25 00:00:00 Yes Fall, subsequ ent encounter by [facility].(Non-Drug; Combo Route) route Walker with seat and wheels along with hand brakes. [facility] glipiZIDE (GLUCOTROL) 10 mg tablet 2019-02-25 00:00:00 00:00:00 No Type 2 diabetes mellitus with hyperglyce mehdi, without long-term current use of insulin 10mg Q.5D Take 1 tablet by mouth 2 times daily (before me als). [facility] tropicamide (MYDRIACYL) 0.5 % ophthalmic solution 2019-02-25 00:00:00 2019-08-24 23:59:00 No Type 2 diabetes carlos itus with hyperglycemia, without long-term current use of insulin 1[drp] Instill 1 Drop in each eye once as needed for up to 1 dose (for poor retina scan image). [facility] glipiZIDE (GLUCOTROL) 10 mg tablet 2018-08-28 00:00:00 201 01-22-14 00:00:00 No Type 2 diabetes mellitus with hyperglyce mehdi, without long-term current use of insulin 10mg Q.5D Take 1 tablet by mouth 2 times daily (before me als). [facility] furosemide (LASIX) 40 mg tablet 2018-07-20 00:00:00 00:00:00 No Acute renal failure with acute tubular necrosis superimposed on stage 5 chronic kidney disease, not on chronic dialysis 40mg Q.5D Take 1 tablet by mouth 2 times daily. [facility] furosemide (LASIX) 40 MG tablet 2018-03-28 09:10:13 Yes 20mg Q.5D Take 20 mg by mouth 2 (two) times daily . [facility] hydrALAZINE (APRESOLINE) 100 MG tablet 2018-03-28 09:10:13 Yes 50mg Q.[id number] Take 50 mg by mouth 3 (three) times daily . [facility] NIFEdipine (ADALAT CC) 30 MG 24 hr tablet 2018-03-28 09:10:13 Yes 30mg QD Take 30 mg by mouth daily. [facility] aspirin 81 MG EC tablet 2018-03-28 09:10:13 Yes 81mg QD Take 81 mg by mouth daily. [facility] metoprolol (LOPRESSOR) 50 MG tablet 2018-03-28 09:10:13 Yes 50mg Q.5D Take 50 mg by mouth 2 (two) times daily. [facility] ferric citrate (AURYXIA ORAL) 2018-03-28 09:10:13 Yes 210mg Q.5D Take 210 mg by mouth 2 (two) times daily. [facility] amitriptyline (ELAVIL) 25 MG tablet 2018-02-19 09:09:17 Yes 25mg QD Take 25 mg by mouth nightly. [facility] calcitriol (ROCALTROL) 0.25 MCG capsule 2018-02-19 09:09:16 Yes .25ug QD Take 0.25 mcg by mouth daily. [facility] glipiZIDE (GLUCOTROL) 10 MG tablet 2018-02-19 09:09:16 Yes 10mg Take 10 mg by mouth 2 (two) times daily before meals. [facility] allopurinol (ZYLOPRIM) 100 MG tablet 2018-02-19 09:09:16 Ye s 100mg QD Take 100 mg by mouth daily. [facility] atorvastatin (LIPITOR) 40 MG tablet 2018-02-19 09:09:16 Yes 40mg QD Take 40 mg by mouth daily. [facility] triamcinolone (KENALOG) 0.025 % topical cream 2018-01-23 00: 00:00 Yes Rash Apply to affected area 3 times daily. [facility] calcitriol (ROCALTROL) 0.25 mcg capsule 2018-01-23 00:00:00 Yes Hypovitaminosis D .25ug QD Take 1 capsule by mouth daily. [facility] hydrALAZINE (APRESOLINE) 100 mg tablet 2018-01-23 00:00:00 Yes Essential hypertension with goal blood pressure less than 130/85 100mg Take 1 tablet by mouth 3 times daily. [facility] furosemide (LASIX) 40 mg tablet 2018-01-23 00:00:00 00:00:00 No Localized edema 40mg Q.5D Take 1 tablet by mouth 2 times daily. [facility] carvedilol (COREG) 12.5 mg tablet 2018-01-23 00:00:00 2019 00:00:00 No Essential hypertension with goal blood pressure less than 130/85 12.5mg Take 1 tablet by mouth 2 times daily (with meals). [facility] amitriptyline (ELAVIL) 25 mg tablet 2018-01-23 00:00:0 0 2019-02-25 00:00:00 No Neuropathic pain syndrome (non-herpetic) 25mg Take 1 tablet by mouth at bedtime nightly at bedtime (1 tablet = 25 mg). [facility] allopurinol (ZYLOPRIM) 100 mg tablet 2018-01-23 00:00: 00 2019-02-25 00:00:00 No Idiopathic gout, unspecified chronicity, unspecified s ite 100mg QD Take 1 tablet by mouth daily. [facility] atorvastatin (LIPITOR) 40 mg tablet 2017-11-28 00:00:0 0 2019-02-25 00:00:00 No Mixed hyperlipidemia 40mg Take 1 tablet by mouth at b edtime nightly. [facility] ferrous sulfate (FEOSOL) 325 mg (65 mg iron) tablet 09-01 00:00:00 Yes Iron deficiency anemia, unspecified iron deficiency anemia type 325mg QD Take 1 tablet by mouth daily (with breakfast). [facility] naproxen (NAPROSYN) 500 mg tablet 2017-09-01 00:00:00 Yes Arthralgia, unspecified joint 500mg Take 1 tablet by mouth 2 times daily (with meals). [facility] NIFEdipine (PROCARDIA XL) 30 mg extended release tablet 2017-09-01 00:00:00 Yes Essential hypertension 30mg Q.5D Take 1 tablet by mouth 2 times daily NEW DOSING TWICE DAILY. [facility] tiZANidine (ZANAFLEX) 4 mg tablet 2017-09-01 00:00:00 Ye s Spasm of muscle 4mg Take 1 tablet by mouth nightly at bedtime as nee ded for Muscle Spasms. [facility] lactulose (CONSTULOSE) 10 gram/15 mL oral solution 2017-08 00:00:00 Yes Slow transit constipation 20g Take 30 mL by mouth 3 ti mes daily. [facility] amLODIPine (NORVASC) 10 mg tablet 2017-05-01 00:00:00 Yes Essential hypertension 10mg QD Take 1 tablet by mouth daily. [facility] metoprolol tartrate (LOPRESSOR) 50 mg tablet 2017-04-17 00:0 0:00 Yes Essential hypertension 50mg Q.5D Take 1 tablet by mouth 2 times buffy y. [facility] hydrALAZINE (APRESOLINE) 25 mg tablet 2017-04-17 00:00:00 Yes Essential hypertension 25mg Q.5D Take 1 tablet by mouth 2 times daily. [facility] ondansetron (ZOFRAN) 4 mg tablet 2017-04-17 00:00:00 Yes Nausea 4mg Take 1 tablet by mouth every 8 hours as needed for Nausea. [facility] naproxen (NAPROSYN) 500 mg tablet 2017-01-31 00:00:00 2019 00:00:00 No Bilateral low back pain with sciatica, s ciatica laterality unspecified, unspecified chronicity 500mg Take 1 tablet by mouth 2 times daily (with meals). [facility] traMADol (ULTRAM) 50 mg tablet 2017-01-19 00:00:00 Yes Arthralgia of both lower legs 50mg Take 1 tablet by mouth every 8 hours as needed for Pain. [facility] Glipizide-Metformin 5-500 mg per tablet 2016-09-23 00:00:00 Yes Type 2 diabetes mellitus with hyperglycemia, without long-term current use of insulin 2{tbl} Q.5D Take 2 tablets by mouth 2 times daily (before meals). [facility] lisinopril (ZESTRIL) 40 mg tablet 2016-09-23 00:00:00 Yes Essential hypertension with goal blood pressure less than 130/85 40mg QD Take 1 tablet by mouth daily. [facility] gabapentin (NEURONTIN) 600 mg tablet 2016-09-23 00:00:00 Yes Neuropathic pain syndrome (non-herpetic) 600mg Take 1 tablet by mouth 3 time s daily. [facility] NIFEdipine (PROCARDIA XL) 90 mg extended release tablet 2016-09-23 00:00:00 Yes Essential hypertension with goal blood pressure less t thomas 130/85 90mg QD Take 1 tablet by mouth daily. Located [facility] amLODIPine (NORVASC) 10 mg tablet 2016-08-31 00:00:00 Yes Essential hypertension 10mg QD Take 1 tablet by mouth daily. [facility] blood glucose (PRECISION XTRA TEST STRIPS) test strips 2016-03-21 00:00:00 Yes Type 2 diabetes mellitus wit h hyperglycemia, without long-term current use of insulin 1{each} 1 Each by MISCELLANEOUS route 2 times weekly. [facility] lancets 30 gauge Misc 2016-03-21 00:00:00 Yes Type 2 diabetes mellitus with hyperglycemia, without long-term current use of insulin 100{each} 100 Each by [facility].(Non-Drug; Combo Route) route 2 times weekly. [facility] pioglitazone (ACTOS) 30 mg tablet 2016-03-18 00:00:00 Yes Type 2 diabetes mellitus with hyperglycemia, without long-term current use of insulin 30mg QD Take 1 tablet by mouth daily. [facility] BLOOD GLUCOSE METER monitoring kit 2016-03-18 00:00:00 Yes Type 2 diabetes mellitus with hyperglycemia, without long-term current use of insulin CHECK BLOOD GLUCOSE TWICE WEEKLY. [facility] lactulose (CONSTULOSE) 10 gram/15 mL oral solution 2015-08 00:00:00 Yes Slow transit constipation 20g Take 30 mL by mouth 3 ti mes daily. [facility] ergocalciferol (VITAMIN D2) 50,000 unit capsule 2015-02-24 0 0:00:00 Yes Vitamin D deficiency 23242H Take 1 capsule by mouth weekly. [facility] ferrous sulfate (FEOSOL) 325 mg (65 mg iron) tablet 2014-05 00:00:00 Yes Other iron deficiency anemia 325mg QD Jay e 1 tablet by mouth daily (with breakfast). [facility] glyBURIDE-metFORMIN (GLUCOVANCE) 5-500 mg per tablet 2 00:00:00 Yes DM type 2 (diabetes mellitus, type 2) 2{tbl} Take 2 tablets by mouth 2 times daily (with meals). [facility] ciprofloxacin (CIPRO) 500 mg tablet 2013-10-22 00:00:00 Yes UTI (Lower Urinary Tract Infection) 500mg Q.5D Take 1 tablet by mouth 2 times da ethel. [facility] tetracycline 500 mg capsule 2010-11-23 00:00:00 Yes Skin infection 500mg Q.5D Take 1 Cap by mouth 2 times daily. [facility] Omeprazole 40 mg capsule 2010-11-23 00:00:00 Yes GERD (gastroesophageal reflux disease) 40mg QD Take 1 Cap by mouth daily. [facility] ibuprofen (MOTRIN) 800 mg tablet 2010-11-23 00:00:00 Yes Joint pain 800mg Take 1 Tab by mouth every 8 hours as needed for Pain. [facility] LANCETS 2008-09-03 00:00:00 Yes Diabetes david litus type II, uncontrolled use as directed for home glucose monitoring [facility] PRECISION XTRA TEST STRIPS 2008-09-03 00:00:00 Yes Diabetes mellitus type II, uncontrolled use as directed for home glucose monitori ng [facility] Immunizations Ordered Immunization Name Filled Immunization Name Date Status Comments Source Hepatitis B Pedi/Adol 2017-12-26 00:00:00 Completed [facility] Herpes Zoster Vaccine In Clinic 2017-11-28 00:00:00 Jamie jose [facility] Hepatitis B Pedi/Adol 2017-11-28 00:00:00 Completed [facility] PCV 13 (Pnuemococcal Conjugated 13 Valent) 2017-01-31 00:0 0:00 Completed [facility] Tdap Tetanus, diphtheria, acellular pertussis Vaccine 2014-12-30 00:00:00 Completed [facility] Influenza Vaccine 2006-03-27 00:00:00 Completed [facility] PPV 23 Pneumococcal Polysaccaride 2005-05-25 00:00:00 Comp leted [facility] PPV 23 Pneumococcal Polysaccaride 2001-09-05 00:00:00 Comp leted [facility] Vital Signs Vital Name Observation Time Observation Value Comments Source Systolic blood pressure 2019-08-29 10:34:45 109 mm[Hg] [facility] Diastolic blood pressure 2019-08-29 10:34:45 53 mm[Hg] [facility] Heart rate 2019-08-29 10:34:45 72 /min [facility] Body temperature 2019-08-29 10:34:45 36.33 Nathalia [facility] Respiratory rate 2019-08-29 10:34:45 16 /min [facility] Oxygen saturation in Arterial blood by Pulse oximetry 08-28 10:34:45 100 /min [facility] Body height 2019-08-28 20:04:00 157.5 cm [facility] Body weight 2019-08-28 20:04:00 82.2 kg [facility] BMI 2019-08-28 20:04:00 33.15 kg/m2 [facility] Systolic blood pressure 2019-07-19 09:42:00 146 mm[Hg] manual [facility] Diastolic blood pressure 2019-07-19 09:42:00 60 mm[Hg] manual [facility] Heart rate 2019-07-19 09:36:00 89 /min [facility] Body temperature 2019-07-19 09:36:00 36.61 [facility] Respiratory rate 2019-07-19 09:36:00 19 /min [facility] Body height 2019-07-19 09:36:00 157.9 cm [facility] Body weight 2019-07-19 09:36:00 78.79 kg [facility] BMI 2019-07-19 09:36:00 31.60 kg/m2 [facility] Procedures Procedure Date / Time Performed Performing Clinician Sourkira e POC GLUCOSE 2019-08-29 11:04:00 Zoey Banerjee [facility] POC GLUCOSE 2019-08-29 06:21:00 Rigo Leung [facility] HC COMPLETE BLD COUNT W/AUTO DIFF 2019-08-29 05:56:00 Jan [facility] BASIC METABOLIC PANEL 2019-08-29 05:56:00 Chenmode Melissa [facility] ESTIMATED GFR 2019-08-29 05:56:00 Melissa Sellers odaddison TROPONIN 2019-08-29 02:03:00 Melissa Sellers [facility] odaddison HEPATITIS B SURFACE ANTIGEN 2019-08-28 23:00:00 Linda Vazquez HEPATITIS B SURFACE AB, QUANTITATIVE 2019-08-28 23:00:00 Linda Vazquez POC GLUCOSE 2019-08-28 21:06:00 Xochitl Rigo Quinten white CT HEAD WO CONTRAST 2019-08-28 20:51:52 Melissa wharton B NATRIURETIC PEPTIDE 2019-08-28 20:34:00 Melissa wharton [facility] HC COMPLETE BLD COUNT W/AUTO DIFF 2019-08-28 20:34:00 ChenmodeJan [facility] COMPREHENSIVE METABOLIC PANEL 2019-08-28 20:34:00 Melissa Sellers Quinten Alonso LIPID PANEL 2019-08-28 20:34:00 Melissa Sellers Quinten white PROTHROMBIN TIME WITH INR 2019-08-28 20:34:00 Chenmode Melissademetri pascal [facility] TROPONIN 2019-08-28 20:34:00 Melissa Sellers Vic odaddison ESTIMATED GFR 2019-08-28 20:34:00 Melissa Sellers Quinten Ho odaddison ECG 12-LEAD 2019-08-28 20:20:32 ChenmodeMelissa Vic odaddison CBC (WITHOUT DIFFERENTIAL) 2019-07-22 13:11:00 El Jung [facility] LIPID PROFILE 2019-07-22 13:11:00 Moises Jung [facility] LIVER PROFILE 2019-07-22 13:11:00 Moises Jung [facility] UREA NITROGEN/CREATININE 2019-07-22 13:11:00 Moises Jung [facility] ELECTROLYTES 2019-07-22 13:11:00 Moises Jung [facility] GLUCOSE, FASTING 2019-07-22 13:11:00 Moises Jung [facility] HEMOGLOBIN A1C 2019-07-22 13:11:00 Moises Jung [facility] URINALYSIS 2019-07-22 13:11:00 Moises Jung [facility] URINALYSIS MICROSCOPIC-REFLEX 2019-07-22 13:11:00 Colten Jung [facility] OPHTHALMOLOGY RETINAL SCAN 2019-02-25 11:09:[facility] HEMOGLOBIN A1C 2019-02-25 10:43:00 Moises Jung [facility] DIABETIC FOOT EXAM 2019-02-25 08:20:00 Moises Jung [facility] Plan of Care Planned Activity Planned Date Details Comments Source Future Scheduled Test 2020-07-21 00:00:00 Hemoglobin A1c juancarlos surement (procedure) [code = 69962000] [facility] Scheduled Test 2020-02-26 00:00:00 DM Foot Exam (Year ly) [code = DM Foot Exam (Yearly)] [facility] Scheduled Test 2020-02-26 00:00:00 DM Retinal Exam (Y early) [code = DM Retinal Exam (Yearly)] [facility] Scheduled Test 2020-02-13 00:00:00 INFLUENZA VACCINE [code = INFLUENZA VACCINE] [facility] Scheduled Test 2020-02-13 00:00:00 IMM Influenza Seas onal Feb to July (>/= 19 yrs) [code = IMM Influenza Seasonal Feb to July (>/= 19 yrs)] [facility] Scheduled Test 2020-01-14 00:00:00 INFLUENZA VACCINE (#1) [code = INFLUENZA VACCINE (#1)] [facility] [employer] [facility] Scheduled Test 2019-08-18 00:00:00 Screening for shayla gnant neoplasm of colon (procedure) [code = 847061478] [facility] Scheduled Test 2019-07-24 00:00:00 Breast Cancer Scrn (Yearly) [code = Breast Cancer Scrn (Yearly)] [facility] Scheduled Test 2019-05-16 00:00:00 MEDICARE ANNUAL WE LLNESS (YEAR 2 or FIRST YEAR if no IPPE) [code = MEDICARE ANNUAL WELLNESS (YEAR 2 or FIRST YEAR if no IPPE)] [facility] [employer] [facility] [facility] Scheduled Test 2019 00:00:00 Screening for shayla gnant neoplasm of colon (procedure) [code = 017270837] [facility] Future Scheduled Test 2018-11-07 00:00:00 Hemoglobin A1c juancarlos surement (procedure) [code = 01028280] [facility] Future Scheduled Test 2018-10-20 00:00:00 PNEUMOCOCCAL 65+ H IGH/HIGHEST RISK (2 of 2 - PPSV23) [code = PNEUMOCOCCAL 65+ HIGH/HIGHEST RISK (2 of 2 - PPSV23)] [facility] Future Scheduled Test 2016 00:00:00 65+ PNEUMOCOCCAL V ACCINE (2 of 2 - PPSV23) [code = 65+ PNEUMOCOCCAL VACCINE (2 of 2 - PPSV23)] [facility] Scheduled Test 2001 00:00:00 BREAST CANCER SCRE ENING [code = BREAST CANCER SCREENING] [facility] Scheduled Test 2001 00:00:00 COLONOSCOPY SCREEN ING [code = COLONOSCOPY SCREENING] [facility] Scheduled Test 2001 00:00:00 SHINGLES VACCINES (#1) [code = SHINGLES VACCINES (#1)] [facility] Scheduled Test 1961 00:00:00 DIABETIC EYE EXAM [code = DIABETIC EYE EXAM] [facility] Future Scheduled Test 1961 00:00:00 Diabetic foot exam ination (regime/therapy) [code = 385303792] [facility] Future Scheduled Test 1961 00:00:00 Urine screening fo r protein (procedure) [code = 501643793] [facility] Future Scheduled Test 1961 00:00:00 DIABETIC FOOT EXAM [code = DIABETIC FOOT EXAM] [facility] Scheduled Test 1961 00:00:00 URINE MICROALBUMIN [code = URINE MICROALBUMIN] [facility] Scheduled Test 1951 00:00:00 Screening for shayla gnant neoplasm of breast (procedure) [code = 500148654] [facility] Future Scheduled Test 1951 00:00:00 DIABETIC RETINAL E YE EXAM [code = DIABETIC RETINAL EYE EXAM] [facility] Encounters Start Date/Time End Date/Time Encounter Type Admission Type Att[facility] Care Department Encounter ID Source 2019-08-28 00:00:00 2019-08-29 00:00:00 Outpatient [facility] [id number] Quinten Alonso 2018-08-24 00:50:00 2018-08-24 00:50:00 Outpatient [id number] [facility] 2018-07-23 14:40:27 2018-07-23 14:40:27 Outpatient [facility] [id number] [facility] 2018-07-20 14:06:38 2018-07-20 14:06:38 Outpatient [facility] [id number] [facility] 2018-07-20 12:56:13 2018-07-20 12:56:13 Outpatient [facility] [id number] [facility] 2018-03-19 00:00:00 2018-03-19 00:00:00 Outpatient [facility] [id number] [facility] 2018-03-19 00:00:00 2018-03-19 00:00:00 Outpatient [facility] [id number] [facility] 2018-03-14 00:00:00 2018-03-14 00:00:00 Outpatient [facility] [id number] [facility] 2018-03-04 00:00:00 2018-03-04 00:00:00 Outpatient [facility] [id number] [facility] 2018-02-07 00:00:00 2018-02-07 00:00:00 Outpatient [facility] [id number] [facility] 2018-02-07 00:00:00 2018-02-07 00:00:00 Outpatient [facility] [id number] [facility] 2018-02-05 00:00:00 2018-02-05 00:00:00 Outpatient [facility] [id number] [facility] 2018-01-29 07:53:08 2018-01-29 07:53:08 Outpatient [facility] [id number] [facility] 2018-01-29 00:00:00 2018-01-29 00:00:00 Outpatient [facility] [id number] [facility] 2018-01-24 00:00:00 2018-01-24 00:00:00 Outpatient [facility] [id number] [facility] 2018-01-24 00:00:00 2018-01-24 00:00:00 Outpatient [facility] [id number] [facility] 2018-01-23 09:47:01 2018-01-23 09:47:01 Outpatient [facility] [id number] [facility] 2018-01-16 00:00:00 2018-01-16 00:00:00 Outpatient [facility] [id number] [facility] 2018-01-02 00:00:00 2018-01-02 00:00:00 Outpatient [facility] [id number] [facility] 2018-01-01 09:32:06 2018-01-01 09:32:06 Outpatient [facility] [id number] [facility] 2017-12-28 00:00:00 2017-12-28 00:00:00 Outpatient [facility] [id number] [facility] 2017-12-26 09:01:27 2017-12-26 09:01:27 Outpatient [facility] [id number] [facility] 2017-11-30 00:00:00 2017-11-30 00:00:00 Outpatient [facility] [id number] [facility] 2017-11-30 00:00:00 2017-11-30 00:00:00 Outpatient [facility] [id number] [facility] 2017-11-28 08:25:32 2017-11-28 08:25:32 Outpatient [facility] [id number] [facility] 2017-09-05 08:42:29 2017-09-05 08:42:29 Outpatient [facility] [id number] [facility] 2017-09-05 08:19:56 2017-09-05 08:19:56 Outpatient [facility] [id number] [facility] 2017-09-01 12:46:59 2017-09-01 12:46:59 Outpatient [facility] [id number] [facility] 2017-08-03 09:58:11 2017-08-03 09:58:11 Outpatient [facility] [id number] [facility] 2017-08-02 11:44:52 2017-08-02 11:44:52 Outpatient [facility] [id number] [facility] 2017-03-02 00:00:00 2017-03-02 00:00:00 Outpatient [facility] [id number] [facility] 2017-02-16 00:00:00 2017-02-16 00:00:00 Outpatient [facility] [id number] [facility] 2017-01-31 14:18:37 2017-01-31 14:18:37 Outpatient [facility] [id number] [facility] Results Test Description Test Time Test Comments Results Result Comments Source CHEST SINGLE (PORTABLE) 2020-01-27 12:22:00 [facility] [address] [place] [address] Patient Name: TAY HERNANDEZ MR #: [id number] : 1950 Age/Sex: 69/F Req #: [id number] Adm Physician: Ordered by: DINA ALDANA DO Report #: [id number] Location: ER Room/Bed: Procedure: [id number] DX/CHEST SINGLE (PORTABLE) Exam Date: 01/27/20 Exam Time: 1130 REPORT STATUS: Signed TECHNIQUE: Frontal view of the chest. INDICATION: ERMD ORDER [id number] 1130 Y COMPARISON: None DISCUSSION: Limited evaluation due to portable technique. Lines and hardware: Multiple overlying EKG leads are noted Heart and mediast inum: Cardiomediastinal silhouette is mildly enlarged. Mild central vascular congestion is noted. Trachea projects midline. Thoracic aorta is tortuous with calcifications of the aortic knob. Lungs and pleura: Low lung volumes. Negative for focal consolidation, large effusion or pneumothorax. Soft tissues and bones: No acute abnormality. IMPRESSION: 1. Negative for acute intrathoracic process. 2. Cardiomegaly. Signed by: Dylan Ramirez MD on 01/27/2020 12:23 PM Dictated By: DYLAN RAMIREZ MD 1223 Transcribed By: CARROLL on 01/27/20 1223 COPY TO: DINA ALDANA DO BASIC METABOLIC PANEL 2019-12-30 15:25:00 Test Item SODIUM (test code = NA) 132 mmol/L 136-145 L POTASSIUM (test code = K) 4.5 mmol/L 3.5-5.1 N S pecimen 1 + Hemolysed.Results MAY NOT be accurate due to hemolysis. CHLORIDE (test code = CL) 90.0 mmol/L 98-107 L CARBON DIOXIDE (test code = CO2) 26.0 mmol/L 21-32 N ANION GAP (test code = GAP) 20.5 10-20 H GLUCOSE (test code = GLU) 139 mg/dL 74-106 H BLOOD UREA NITROGEN (test code = BUN) 48 mg/dL 7-18 H GLOMERULAR FILTRATION RATE (test code = GFR) 5 mL/min >=60 Estimated GFR by using Modified MDRD formula.Chronic kidney disease is defined as either kidney damageor GFR <60 mL/min/1.73 m2 for >3 months. CREATININE (test code = CREAT) 8.30 mg/dL 0.55-1.02 H Note change in reference range due to change in reagent. BUN/CREATININE RATIO (test code = BUN/CREA) 5.8 10-20 L CALCIUM (test code = CA) 6.6 mg/dL 8.5-10.1 L [id number] 15:25:00* Test Item Value Reference Range Interpretation Comments TROPONIN-I (test code = TROPI) 0.025 ng/mL 0-0.045 N HEPATIC FUNCTION [id number] 15:25:00* Test Item Value Reference Range Interpretation Comments TOTAL PROTEIN (test code = PROT) 6.8 gram/dL 6.4-8.2 N ALBUMIN (test code = ALB) 1.6 g/dL 3.4-5.0 L GLOBULIN (test code = GLOB) 5.2 gram/dL 2.7-4.2 H ALBUMIN/GLOBULIN RATIO (test code = A/G) 0.3 0.75-1.50 L BILIRUBIN TOTAL (test code = BILT) 1.80 mg/dL 0.0-1.0 H BILIRUBIN DIRECT (test code = BILD) < 0.05 mg/dL 0.0-0.20 N SGOT/AST (test code = AST) 58 IUnit/L 15-37 H SGPT/ALT (test code = ALT) 23 IUnit/L 12-78 N ALKALINE PHOSPHATASE TOTAL (test code = ALKP) 169 IUnit/L 45-117 H Note change in reference range due to change in reagent. [id number] 15:25:00* Test Item Value Reference Range Interpretation Comments LIPASE (test code = LIP) 252 U/L 73.0-393.0 N BASIC METABOLIC [id number] 15:18:00* Test Item Value Reference Range Interpretation Comments SODIUM (test code = NA) 132 mmol/L 136-145 L POTASSIUM (test code = K) 4.5 mmol/L 3.5-5.1 N S pecimen 1 + Hemolysed.Results MAY NOT be accurate due to hemolysis. CHLORIDE (test code = CL) 90.0 mmol/L 98-107 L CARBON DIOXIDE (test code = CO2) mmol/L 21-32 ANION GAP (test code = GAP) 10-20 GLUCOSE (test code = GLU) mg/dL 74-106 BLOOD UREA NITROGEN (test code = BUN) mg/dL 7-18 GLOMERULAR FILTRATION RATE (test code = GFR) mL/min >=60 CREATININE (test code = CREAT) mg/dL 0.55-1.02 BUN/CREATININE RATIO (test code = BUN/CREA) 10-20 CALCIUM (test code = CA) mg/dL 8.5-10.1 [id number] 15:18:00* Test Item Value Reference Range Interpretation Comments TROPONIN-I (test code = TROPI) ng/mL 0-0.045 PROTHROMBIN [id number] 15:18:00* Test Item Value Reference Range Interpretation Comments PROTHROMBIN TIME PATIENT (test code = PTP) 14.5 seconds 9.0-14.0 H INTERNATIONAL NORMAL RATIO (test code = INR) 1.3 0.8-1.2 H The therapeutic range for oral anticoagulant therapy formost indications is an international normalized ratio (INR)of between 2.0 and 3.0. The recommended therapeutic INRrange for various clinical situations is listed below: Clinical Situation INR range Pulmonary e mbolism treatment (2.0-3.0)Venous thrombosis treatmentVenous thrombosis prophylaxis (high risk surgery)Prevention of systemic embolism from: Acute myocardial infarction Valvular heart disease Atrial fibrillation Mechanical prosthetic heart valves (2.5-3.5) IS PATIENT ON ANTICOAGULANTS? NTHROMBOPLASTIN TIME [id number] 15:18:00* Test Item Value Reference Range Interpretation Comments THROMBOPLASTIN TIME PARTIAL (test code = PTT) 26.6 seconds 23.0-37. 0 N IS PATIENT ON ANTICOAGULANTS? NCBC W/O [id number] 15:11:00* Test Item Value Reference Range Interpretation Comments WHITE BLOOD CELL (test code = WBC) 12.3 K/mm3 4.5-12.5 N RED BLOOD CELL (test code = RBC) 3.42 mill/mm3 3.7-5.2 L HEMOGLOBIN (test code = HGB) 9.9 gram/dL 11.5-15.5 L HEMATOCRIT (test code = HCT) 29.7 % 36.0-46.0 L MEAN CELL VOLUME (test code = MCV) 86.8 fL 80-98 N MEAN CELL HGB (test code = MCH) 28.9 picogram 27.0-33.0 N MEAN CELL HGB CONCETRATION (test code = MCHC) 33.3 gram/dL 33.0-36. 0 N RED CELL DISTRIBUTION WIDTH (test code = RDW) 15.9 % 11.6-16. 2 N PLATELET COUNT (test code = PLT) 277 K/mm3 150-450 N MEAN PLATELET VOLUME (test code = MPV) 8.9 fL 6.7-11.0 N CBC W/O [id number] 15:10:00* Test Item Value Reference Range Interpretation Comments WHITE BLOOD CELL (test code = WBC) K/mm3 4.5-12.5 RED BLOOD CELL (test code = RBC) mill/mm3 3.7-5.2 HEMOGLOBIN (test code = HGB) gram/dL 11.5-15.5 HEMATOCRIT (test code = HCT) % 36.0-46.0 MEAN CELL VOLUME (test code = MCV) fL 80-98 MEAN CELL HGB (test code = MCH) picogram 27.0-33.0 MEAN CELL HGB CONCETRATION (test code = MCHC) gram/dL 33.0-36. 0 RED CELL DISTRIBUTION WIDTH (test code = RDW) % 11.6-16. 2 PLATELET COUNT (test code = PLT) 277 K/mm3 150-450 N MEAN PLATELET VOLUME (test code = MPV) fL 6.7-11.0 - XR CHEST 1 [id number] 14:46:00 FAX: Grady Richey NP [phone] [place]: St: REG Name: TAY CORMIER [facility] : [birth year] Age/S: 69/F [address] [facility] Unit #: [id number] Loc: [place] [address] Phys: Grady Richey NP Acct: [id number] Dis Date: Status: REG ER PHONE #: [phone] Exam Date: 12/30/2019 1431 FAX #: [phone] Reason: CHEST PAIN EXAMS: CPT CODE: [id number] XR CHEST 1 V 15995 REASON FOR EXAM: CHEST PAIN Exam Order Date: 12/30/2019 2:00 PM Ordering M.Katty: Grady Richey NP PROCEDURE: - XR CHEST 1 V SLAVA RISON: Chest x-ray 09/15/2018 FINDINGS: Lines/Tubes: Interval removal of right IJ hemodialysis catheter. The lungs are clear. There is no pleural effusion or pneumothorax. Pulmonary vasculari ty is within normal limits. Cardiomediastinal silhouette and media stinal contours are unchanged when accounting for differences in technique . Musculoskeletal structures and visualized portions of the upper abdomen are also unchanged. IMPRESSION: No acute cardiopulmonary process. Location: [facility] Enma ctronically Signed by Scar Velazquez M.D. on 12/30/2019 at 1446 Reported and signed by: Scar Velazquez M.D. CC: Grady Richey NP Technologist: Tami PERALTA(R) Trnscrd Date/Time/By: 12/30/2019 (8998) : By: [email or web address] Orig Print D/T: S: 12/30/2019 (1437) PAGE 1 Signed Report Hepatitis B surface Ab, [id number] 12:43:52* Test Item Value Reference Range Interpretation Comments Hepatitis B surface Ab (test code = 5193-8) 494.43 IU/L The anti-HBs is greater than or equal to 10 IU/L. This patient has either had an antibody response to HBV vaccination, received a transfusion, or has recovered from HBV infection. This patient should be considered immune to hepatitis B.An anti-HBs result greater than or equal to 10 IU/L implies immunity. For post-vaccination antibody testing guidelines for the general public refer to MMWR May 06, 2005/Vol. 54(No. 16);-23, and for healthcare workers refer to MMWR May 03, 2013/Vol. 62(No. 10);-19.Reference Interval: anti-HBs 9.99 IU/L or less ....... Knxybbdi66.00 IU/L or greater .... PositiveResults greater than 1,000.00 IU/L are reported as greater than 1,000.00 IU/L. This assay should not be used for blood donor screening, associated re-entry protocols, or for screening Human Cell, Tissues and Cellular and Tissue-Based Products (HCT/P).Performed by [facility],[address] [place] [id number], Mikael Matias MD, Lab. Director [facility] 12 [id number] 15:35:20* Test Item Value Reference Range Interpretation Comments Ventricular rate (test code = 253) 101 Atrial rate (test code = 255) 101 RI interval (test code = 266) 166 QRSD interval (test code = 260) 90 QT interval (test code = 264) 368 QTC interval (test code = 265) 477 P axis 1 (test code = 267) 34 QRS axis 1 (test code = 268) 10 T wave axis (test code = 270) 73 EKG impression (test code = 273) Sinus tachycardia-Can not rule out Anterior infarct , age undetermined-Nonspecific ST and T wave abnormality-No previous ECGs available- 3:3 5:19 PM [facility] [id number] 11:09:07* Test Item Value Reference Range Interpretation Comments POC glucose (test code = 92675-2) 207 mg/dL 65-100 H Structural Rigger Name: Sue Sotomayor ID: [id number] Lab Interpretation (test code = 61160-4) Abnormal [facility] metabolic [id number] 06:45:03* Test Item Value Reference Range Interpretation Comments Sodium (test code = 2951-2) 135 135- 150 mEq/L Potassium (test code = 2823-3) 3.6 3.5- 5.0 mEq/L Chloride (test code = 2075-0) 93 98- 112 mEq/L L CO2 (test code = 8-9) 25 mmol/L 24-31 Anion gap (test code = 27174-5) 17@ANIO 7- 15 mEq/L H BUN (test code = 3094-0) 36 mg/dL 7-18 H Creatinine (test code = 2160-0) 6.40 mg/dL 0.5-0.9 H Glucose (test code = 2345-7) 217 mg/dL 65-100 H Calcium (test code = 00493-3) 7.6 mg/dL 8.8-10.2 L Lab Interpretation (test code = 40742-7) Abnormal [facility]ated [id number] 06:45:02* Test Item Value Reference Range Interpretation Comments Estimated GFR (test code = 5488) 6 mL/min/1.73 m2 A Catergory Units InterpretationG1 >=90 Normal or highG2 60-89 Mildly vowfuvjybE0p 45-59 Mildly to moderately gopopbftbJ3n 30-44 Moderately to severely decreasedG4 15-29 Severely decreasedG5 <15 Kidney failureThe eGFR was calculated using the Chronic Kidney Disease Epidemiology Collaboration (CKD-EPI) equation. Interpretation is based on recommendations of the National Kidney Foundation-Kidney Disease Outcomes Quality Initiative (NKF-KDOQI) published in 2014. Lab Interpretation (test code = 07408-1) Abnormal [facility] with platelet and pdtcchpnaoww6090-45-46 06:27:02* Test Item Value Reference Range Interpretation Comments WBC (test code = 40972-2) 7.1 4.2- 11.0 k/uL RBC (test code = 63528-6) 3.04 m/uL 4.04-5.86 L HGB (test code = 718-7) 9.1 g/dL 11.5-15.3 L HCT (test code = 4544-3) 28.3 % 34-45 L MCV (test code = 787-2) 93.1 fL 80-98 MCH (test code = 785-6) 29.9 pg 27-34 MCHC (test code = 786-4) 32.2 g/dL 31.5-36.5 RDW - SD (test code = 16121-7) 48.3 fL 37-51 MPV (test code = 52808-8) 8.2 fL 7.4-10.4 Platelet count (test code = 47946-9) 376 150- 400 k/uL Nucleated RBC (test code = 59343-8) 0.00 /100 WBC Neutrophils (test code = 91497-6) 64.6 % 36-66 Lymphocytes (test code = 98042-6) 23.6 % 24-44 L Monocytes (test code = 95866-2) 6.6 % 0-6 H Eosinophils (test code = 37564-6) 3.9 % 0-6 Basophils (test code = 88526-9) 1.0 % 0-1.2 Immature granulocytes (test code = 67093-6) 0.3 % 0-1 Lab Interpretation (test code = 87510-8) Abnormal Quinten AlonsoZzyoaxoqjNhzjpbeb8400-65-66 02:53:12* Test Item Value Reference Range Interpretation Comments Troponin (test code = 90249-0) 0.020 ng/mL 0-0.04 In patients suspected of having a myocardial infarction, along with all other appropriate clinical measures and actions including ECG and other diagnostics as appropriate, measure Ultra TnI at 0 hrs and at 3 hrs.Myocardial infarction VERY LIKELYThe 0 hr TnI level is > 0.10 ng/mL Tutu cardial infarction LIKELYThe 0 hr TnI level is > 0.04 ng/mL and 3 hr level is increased or decreased by at least 0.020 ng/mL Myocardi al infarction VERY UNLIKELYBoth the 0 hr and 3 hr TnI levels <= 0.04 ng/mL(within normal limits) OR 0 hr is > 0.04 ng/mL and 3 hr is increased OR decreased by less than 0.020 ng/mL [facility]Hepatitis B surface [id number] 23:54:28* Test Item Value Reference Range Interpretation Comments Hepatitis B surface Ag (test code = 5195-3) Non-reactive Non-reacti ve [facility] MethodistB natriuretic [id number] 21:26:12* Test Item Value Reference Range Interpretation Comments BNP (test code = 72914-4) 97 pg/mL 0-100 [facility]Comprehensive metabolic [id number] 21:17:33* Test Item Value Reference Range Interpretation Comments Sodium (test code = 2951-2) 135 135- 150 mEq/L Potassium (test code = 2823-3) 3.2 3.5- 5.0 mEq/L L Chloride (test code = 2075-0) 92 98- 112 mEq/L L CO2 (test code = 2028-9) 24 mmol/L 24-31 Anion gap (test code = 26186-4) 19@ANIO 7- 15 mEq/L H BUN (test code = 3094-0) 37 mg/dL 7-18 H Creatinine (test code = 2160-0) 6.60 mg/dL 0.5-0.9 H Glucose (test code = 2345-7) 95 mg/dL 65-100 Calcium (test code = 42198-2) 7.6 mg/dL 8.8-10.2 L Protein (test code = 2885-2) 6.6 g/dL 6.3-8.3 Albumin (test code = 1751-7) 2.1 g/dL 3.5-5 L A/G ratio (test code = 1759-0) 0.5 0.7-3.8 L Alkaline phosphatase (test code = 6768-6) 147 U/L 0-104 H AST (test code = 1920-8) 19 U/L 10-35 ALT (test code = 1742-6) 16 U/L 5-50 Total bilirubin (test code = 1974-2) 0.4 mg/dL 0.2-1.2 Lab Interpretation (test code = 45160-2) Abnormal [facility] MethodistLipid [id number] 21:17:32* Test Item Value Reference Range Interpretation Comments Cholesterol (test code = 2093-3) 80 mg/dL 0-199 Triglycerides (test code = 2571-8) 87 mg/dL 0-149 HDL cholesterol (test code = 2085-9) 26 mg/dL 40-9999 L LDL cholesterol (test code = 2089-1) 41 mg/dL 0-99 Result obtained by direct LDL measurement Lipid panel interpretation (test code = 82285-6) See below Total Cholesterol (mg/dL) LDL Cholesterol (mg/dL) <200 Desirable <100 Optimal 200-239 Borderline-high 100-129 Near or above optimal >=240 High 130-159 Borderline- high 160-189 High >=190 Very highHDL Cholesterol (mg/dL) Triglycerides (mg/dL) <40 Low <150 Normal >=60 High 150-199 Borderline-high 200-499 High >=500 Very high Risk Catergories that modify LDL goals.Risk Catergories LDL goal (mg/dL)CHD and CHD risk equivalent <100 (10-year risk >20%)Multiple (2+) risk factors <130 (10-year risk =<20%)0-1 risk factors <160 (<10-year risk) Defining levels of lipids in metabolic syndromeTriglycerides >=150 mg/dLHDL Cholesterol Men <40 mg/dL Women <50 mg/dL Non-HDL cholesterol is a second target for therapy in personswith high triglycerides (>=200 mg/dL) Lab Interpretation (test code = 93594-0) Abnormal [facility] MethodistProthrombin time with [id number] 21:11:19* Test Item Value Reference Range Interpretation Comments Prothrombin time (test code = 5902-2) 14.8 11.5- 14.5 sec H INR (test code = 09100-3) 1.16 Fo r patients on anticoagulant therapy, reference ranges below:Indication: INR ValueTreatment of Venous Thrombosis, 2.0-3.0pulmonary emboli, or prophylaxisof a venous thrombosis, or systemic emboli.High dose, high risk patients 3.0-4.5with mechanical valves.NOTE: INR values over 3.0 are sometimes associated withgastrointestinal hemorrhage, especially values over 4.0. Lab Interpretation (test code = 89110-7) Abnormal [facility] MethodistCT Head Wo Vqmnjqjg2471-53-85 20:54:39Hm Interface, Radiology Results - 08/28/2019 8:57 PM CDTEXAM: CT HEAD WO CONTRASTCLINICAL HISTORY: DizzinessTECHNIQUE: Noncontrast enhanced images of the brain were obtained from the skull base to the vertex. Both soft tissue and bone reconstruction algorithms were performed. CT scans are performed using rad iation dose reduction techniques (iterative reconstruction and/or automated expo sure control). Technical factors are evaluated and adjusted to ensure appropriat e moderation of exposure. 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 Sulci and ventricles are prominent from age-related parenchymal volume loss. In addition, there is scattered subcortical and deep white matter hypoattenuation, likely reflective of chronic small vessel ischemic changes. There is no evidence for acute intracranial hemorrhage, mass, mass effect, hydrocephalus, or extra-a xial fluid collection.Partially empty sella noted.Orbits are unremarkable. Para nasal sinuses are clear. Likely small sebaceous cyst noted overlying the right z ygomaticofacial complex. Mastoid air cells are normally pneumatized. Vascular c alcifications are noted, most prominent within the bilateral cavernous ICAs. Os seous structures are intact.IMPRESSION:No CT evidence for acute intracranial abn ormality. Chronic findings as detailed above.[facility]-[id number] [facility] BASIC METABOLIC [id number] 12:14:00* Test Item Value Reference Range Interpretation Comments SODIUM (test code = NA) 123 mmol/L 128-145 LL Resu lts called to DR.MATTINGLYby MaganaLAB.EG 08/28/19 1214Critical results verified and read back by Nurse? Y POTASSIUM (test code = K) 3.9 mmol/L 3.5-5.1 N CHLORIDE (test code = CL) 88.0 mmol/L 98-107 L CARBON DIOXIDE (test code = CO2) 28.3 mmol/L 22-29 N ANION GAP (test code = GAP) 11 mmol/L 10-20 N GLUCOSE (test code = GLU) 288 mg/dL 70-110 H BLOOD UREA NITROGEN (test code = BUN) 38 mg/dL 7-22 H GLOMERULAR FILTRATION RATE (test code = GFR) 6 mL/min >=60 Estimated GFR by using Modified MDRD formula.Chronic kidney disease is defined as either kidney damageor GFR <60 mL/min/1.73 m2 for >3 months. CREATININE (test code = CREAT) 6.75 mg/dL 0.55-1.3 H BUN/CREATININE RATIO (test code = BUN/CREA) 5.6 10-20 L CALCIUM (test code = CA) 7.8 mg/dL 8.0-10.5 L [id number] 12:14:00* Test Item Value Reference Range Interpretation Comments TROPONIN-I (test code = TROPI) <0.015 ng/mL 0.00-0.056 N CBC W/O [id number] 11:51:00* Test Item Value Reference Range Interpretation Comments WHITE BLOOD CELL (test code = WBC) 8.4 K/mm3 4.5-12.5 N RED BLOOD CELL (test code = RBC) 2.98 mill/mm3 3.7-5.2 L HEMOGLOBIN (test code = HGB) 8.9 gram/dL 11.5-15.5 L HEMATOCRIT (test code = HCT) 27.6 % 36.0-46.0 L MEAN CELL VOLUME (test code = MCV) 92.6 fL 80-98 N MEAN CELL HGB (test code = MCH) 29.9 picogram 27.0-33.0 N MEAN CELL HGB CONCETRATION (test code = MCHC) 32.2 gram/dL 33.0-36. 0 L RED CELL DISTRIBUTION WIDTH (test code = RDW) 14.4 % 11.6-16. 2 N RED CELL DISTRIBUTION WIDTH SD (test code = RDW-SD) 49.3 fL 37 .0-51.0 N PLATELET COUNT (test code = PLT) 343 K/mm3 150-450 N MEAN PLATELET VOLUME (test code = MPV) 8.4 fL 6.7-11.0 N Urea Nitrogen/[id number] 07:25:00* Test Item Value Reference Range Interpretation Comments Urea Nitrogen (test code = 24677924) 54.0 mg/dL 7-25 H Creatinine (test code = 90411482) 5.1 mg/dL 0.6-1.2 H GFR, Estimated (test code = 06347006) 8 >=90 mL/min/1.73 m2 L Lab Interpretation (test code = 47257-2) Abnormal [facility], [id number] 07:25:00* Test Item Value Reference Range Interpretation Comments Glucose, Fasting (test code = 81788252) 336 mg/dL 74-106 H Reference Range: Two or more of the venous plasma concentrations must be met or exceeded for a positive diagnosis. Non- Fasting 105 mg/dL 95 mg/dL 1 hr 190 mg/dL 180 mg/dL 2 hr 165 mg/dL 155 mg/dL 3 hr 145 mg/dL 140 mg/dL Lab Interpretation (test code = 10818-7) Abnormal [facility]id [id number] 07:25:00* Test Item Value Reference Range Interpretation Comments Cholesterol (test code = 2093-3) 123.0 mg/dL <=200.0 Triglyceride (test code = 62881769) 186 mg/dL <150 H HDL (test code = 2085-9) 40.0 mg/dL See Reference Range Narrative . LDL (test code = 80350-9) 46 mg/dL <100 Op timal: < 100.0 mg/dLNear Optimal: 120-129 mg/dLBorderline: 130-159 mg/dLHigh: 160-189 mg/dLVery High: >=190 mg/dL Patient Fasting? (test code = 72684727) No SHAWN (test code = SHAWN) Patient is not fasting. For a triglyceride result greater than 440 mg/dL, consider re-testing when the patient is in a fasting state. Lab Interpretation (test code = 78863-1) Abnormal [facility] [id number] 07:25:00* Test Item Value Reference Range Interpretation Comments Bilirubin, Total (test code = 2885-2) 0.5 mg/dL 0.2-1.2 Alkaline Phosphatase (test code = 00140638) 281 U/L 34-104 H AST (test code = 63760956) 11 U/L 13-39 L Direct Bilirubin (test code = 1968-7) 0.1 mg/dL 0-0.2 ALT (test code = 25043201) 27 U/L 7-52 Albumin (test code = 33155-6) 3.1 g/dL 3.7-5.3 L Lab Interpretation (test code = 44141-6) Abnormal [facility]YtnpybTiatmerzpqlw6631-70-84 07:25:00* Test Item Value Reference Range Interpretation Comments Sodium (test code = 2951-2) 133 mmol/L 136-145 L Potassium (test code = 2823-3) 3.2 mmol/L 3.5-5.1 L Chloride (test code = 2075-0) 93 mmol/L 98-107 L CO2 (test code = 28606662) 25 mmol/L 21-31 Anion Gap (test code = 06692486) 15 mmol/L 5-16 Lab Interpretation (test code = 90566-8) Abnormal [facility] [id number] 19:37:00* Test Item Value Reference Range Interpretation Comments Hemoglobin A1c (test code = 4548-4) 10.4 % 4.3-6.1 H Estimated Average Glucose (test code = 71270312) 252 mg/dL 70-11 0 H Lab Interpretation (test code = 42965-7) Abnormal [facility]CBC (without differential)2019-07-22 16:56:00* Test Item Value Reference Range Interpretation Comments WBC (test code = 6690-2) 16.2 K/uL 4.5-11 H RBC (test code = 789-8) 3.39 4.20- 5.40 M/uL L Hemoglobin (test code = 718-7) 10.3 g/dL 12-16 L Hematocrit (test code = 4544-3) 30.5 % 37-47 L MCV (test code = 787-2) 90.0 fL 82-92 MCH (test code = 785-6) 30.4 pg 27-32 MCHC (test code = 786-4) 33.8 g/dL 32-36 RDW (test code = 50008-7) 48.4 fL 36.4-46.3 H Platelet (test code = 777-3) 350 K/uL 150-400 Mean Platelet Volume (test code = 49255-7) 9.2 fL 9.4-12.4 L Percent NRBC (test code = 42071830) 0.0 % Lab Interpretation (test code = 65258-8) Abnormal [facility]INAL[facility], [id number] 13:32:00* Test Item Value Reference Range Interpretation Comments RBC (test code = 03809998) 11-21 0- 4 /HPF A WBC (test code = 91865169) 5-20 0- 5 /HPF A Mucous (test code = 41412488) Present None seen /HPF A Epithelial Cell (test code = 19313796) 1/HPF <1 /HPF A Bacteria (test code = 99058058) Moderate None seen /HPF A Granular Cast (test code = 11726682) 0-1 None seen /LPF Lab Interpretation (test code = 17148-1) Abnormal [place] NdvvvyNsvylosesm0430-87-07 13:23:00* Test Item Value Reference Range Interpretation Comments Color (test code = 68745171) Yellow Colorless, Straw, Yellow Clarity (test code = 69079769) Clear Clear Spec [place], Ur (test code = 5811-5) 1.025 1.005-1.035 pH, Ur (test code = 5803-2) 5.5 5.0-8.0 Protein, Ur (test code = 97322-1) 2+ Negative mg/dL A Glucose, Ur (test code = 04806-9) 1+ Negative A Ketone, Ur (test code = 2514-8) Negative Negative Bilirubin, Ur (test code = 5770-3) Negative Negative Nitrite, Ur (test code = 5802-4) Negative Negative Urobilinogen, Ur (test code = 48093-8) <1.0 <1.0 EU/dL Leukocyte (test code = 69194410) 1+ Negative A Blood, Ur (test code = 35032762) 1+ Negative A Lab Interpretation (test code = 28163-0) Abnormal [facility] FOOT [id number] 08:20:00Moises Jung MD 02/25/2019 11:27 AMDiabetic Foot Exam was performed at 02/25/2019 10:33 AM. Right foot sensation is normal, right foot pulses are normal, right foot appearance is normal. Left foot sensation is normal, left foot pulses are normal, left foot appearance is normal. [facility] METABOLIC PANEL 2018-09-16 03:54:00* Test Item Value Reference Range Interpretation Comments SODIUM (test code = NA) 141 mmol/L 136-145 RESU LT VERIFIED BY REPEAT ANALYSIS POTASSIUM (test code = K) 3.8 mmol/L 3.5-5.1 N CHLORIDE (test code = CL) 105.0 mmol/L 98-107 N CARBON DIOXIDE (test code = CO2) 28.0 mmol/L 21-32 N ANION GAP (test code = GAP) 11.8 10-20 N GLUCOSE (test code = GLU) 103 mg/dL 74-106 N BLOOD UREA NITROGEN (test code = BUN) 10 mg/dL 7-18 RESULT VERIFIED BY REPEAT ANALYSIS GLOMERULAR FILTRATION RATE (test code = GFR) 18 mL/min >=60 Estimated GFR by using Modified MDRD formula.Chronic kidney disease is defined as either kidney damageor GFR <60 mL/min/1.73 m2 for >3 months. CREATININE (test code = CREAT) 2.70 mg/dL 0.55-1.02 H Note change in reference range due to change in reagent. BUN/CREATININE RATIO (test code = BUN/CREA) 3.7 10-20 L CALCIUM (test code = CA) 7.7 mg/dL 8.5-10.1 L [id number] 03:49:00* Test Item Value Reference Range Interpretation Comments TROPONIN-I (test code = TROPI) <0.015 ng/mL 0-0.045 N COMMENTS TO SUPERVISOR LITHARGE: COLLECT 3 HOURS AFTER PREVIOUS SAMPLECBC W/AUTO [id number] 03:43:00* Test Item Value Reference Range Interpretation Comments WHITE BLOOD CELL (test code = WBC) 6.5 K/mm3 4.5-12.5 N RED BLOOD CELL (test code = RBC) 2.89 mill/mm3 3.7-5.2 L HEMOGLOBIN (test code = HGB) 8.4 gram/dL 11.5-15.5 L HEMATOCRIT (test code = HCT) 27.4 % 36.0-46.0 L MEAN CELL VOLUME (test code = MCV) 94.8 fL 80-98 N MEAN CELL HGB (test code = MCH) 29.1 picogram 27.0-33.0 N MEAN CELL HGB CONCETRATION (test code = MCHC) 30.7 gram/dL 33.0-36. 0 L RED CELL DISTRIBUTION WIDTH (test code = RDW) 13.2 % 11.6-16. 2 N RED CELL DISTRIBUTION WIDTH SD (test code = RDW-SD) 45.5 fL 37 .0-51.0 N PLATELET COUNT (test code = PLT) 260 K/mm3 150-450 N MEAN PLATELET VOLUME (test code = MPV) 8.9 fL 6.7-11.0 N NEUTROPHIL % (test code = NT%) 55.5 % 39.0-69.0 N IMMATURE GRANULOCYTE % (test code = IG%) 0.3 % 0.0-5.0 N LYMPHOCYTE % (test code = LY%) 29.5 % 25.0-55.0 N MONOCYTE % (test code = MO%) 8.1 % 0.0-10.0 N EOSINOPHIL % (test code = EO%) 5.7 % 0.0-5.0 H BASOPHIL % (test code = BA%) 0.9 % 0.0-1.0 N NUCLEATED RBC % (test code = NRBC%) 0.0 % 0-0 N NEUTROPHIL # (test code = NT#) 3.58 K/mm3 1.8-7.7 N IMMATURE GRANULOCYTE # (test code = IG#) 0.02 x10 3/uL 0-0.03 N LYMPHOCYTE # (test code = LY#) 1.90 K/mm3 1.0-5.0 N MONOCYTE # (test code = MO#) 0.52 K/mm3 0-0.8 N EOSINOPHIL # (test code = EO#) 0.37 K/mm3 0.0-0.5 N BASOPHIL # (test code = BA#) 0.06 K/mm3 0.0-0.2 N NUCLEATED RBC # (test code = NRBC#) 0.00 K/mm3 0.0-0.1 N [id number] 23:03:00* Test Item Value Reference Range Interpretation Comments TROPONIN-I (test code = TROPI) <0.015 ng/mL 0-0.045 N COMMENTS TO SUPERVISOR LITHARGE: COLLECT 3 HOURS AFTER PREVIOUS [id number] 20:29:00* Test Item Value Reference Range Interpretation Comments GLUBED (test code = GLUBED) 146 mg/dL 74-106 H Performed by certified business machine operator at [facility] - CT HEAD/BRAIN W/O [id number] 14:25:00 Name: TAY HERNANDEZ [facility] : 1950 Age/S: 68 / F [address] [facility] Unit #: [id number] Loc: [place] [address] Phys: CHU ZAPATA MD Acct: [id number] Dis Date: Status: ADM IN PHONE #: [phone] Exam Date: 09/15/2018 1347 FAX #: [phone] Reason: change in vision EXAMS: CPT CODE: [id number] CT HEAD/BRAIN W/O CONT 52411 EXAM: CT of the head without contrast; INFORMATION: Hypotension, vision changes; TECHNIQUE AND FINDINGS: CT dose reduction protocol; 2.5 mm axial scans without contrast. There is no evidence of intra or extra-axial hemorrhage, mass lesions or midline shift. 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 This is associated with ex vacuo dilatation of the left lateral ventricle. There are also mild periventricular and deep white matter hypodensities. Otherwise, unremarkable larkin/white matter differentiation. The calvarium is intact. Mucosal swelling in the left left maxillary and right sphenoid sinuses. The remainder of the sinuses and mastoid air cells are well aerated. IMPRESSION: 1. No evidence of intracranial hemorrhage or acute territorial infarction. 2. No significant change compared with a study from September 15, 2017, showing chronic ischemic white matter changes and small left periventricular infarct. at 1426 Reported and signed by: Damian Lewis M.D. CC: CHU ZAPATA MD Technologist:Nano Ramirez,RT(R),CT; Delores CTDI: DLP: Trnscb Date/Time: 09/15/2018 (115) t.SDR.GRW Orig Print D/T: S: 09/15/2018 (2779) CTDI: DLP: PAGE 1 Signed Report BASIC METABOLIC [id number] 13:46:00* Test Item Value Reference Range Interpretation Comments SODIUM (test code = NA) 134 mmol/L 136-145 L POTASSIUM (test code = K) 3.7 mmol/L 3.5-5.1 N S pecimen 1+ Hemolysed.Some results MAY NOT be accurate due to hemolysis. CHLORIDE (test code = CL) 96.0 mmol/L 98-107 L CARBON DIOXIDE (test code = CO2) 29.0 mmol/L 21-32 N ANION GAP (test code = GAP) 12.7 10-20 N GLUCOSE (test code = GLU) 229 mg/dL 74-106 H BLOOD UREA NITROGEN (test code = BUN) 23 mg/dL 7-18 H GLOMERULAR FILTRATION RATE (test code = GFR) 9 mL/min >=60 Estimated GFR by using Modified MDRD formula.Chronic kidney disease is defined as either kidney damageor GFR <60 mL/min/1.73 m2 for >3 months. CREATININE (test code = CREAT) 4.70 mg/dL 0.55-1.02 H Note change in reference range due to change in reagent. BUN/CREATININE RATIO (test code = BUN/CREA) 4.9 10-20 L CALCIUM (test code = CA) 8.4 mg/dL 8.5-10.1 L HEPATIC FUNCTION [id number] 13:46:00* Test Item Value Reference Range Interpretation Comments TOTAL PROTEIN (test code = PROT) 7.1 gram/dL 6.4-8.2 N ALBUMIN (test code = ALB) 3.3 g/dL 3.4-5.0 L GLOBULIN (test code = GLOB) 3.8 gram/dL 2.7-4.2 N ALBUMIN/GLOBULIN RATIO (test code = A/G) 0.9 0.75-1.50 N BILIRUBIN TOTAL (test code = BILT) 0.50 mg/dL 0.0-1.0 N BILIRUBIN DIRECT (test code = BILD) 0.12 mg/dL 0.0-0.20 N SGOT/AST (test code = AST) 29 IUnit/L 15-37 N SGPT/ALT (test code = ALT) 17 IUnit/L 12-78 N ALKALINE PHOSPHATASE TOTAL (test code = ALKP) 96 IUnit/L 45-117 N Note change in reference range due to change in reagent. [id number] 13:46:00* Test Item Value Reference Range Interpretation Comments MAGNESIUM (test code = MAG) 2.2 mg/dL 1.8-2.4 N THYROID STIMULATING [id number] 13:46:00* Test Item Value Reference Range Interpretation Comments THYROID STIMULATING HORMONE (test code = TSH) 0.316 uIU/mL 0.36-3.7 4 L TSH REFERENCE RANGES: EUTHYROID: 0.35 - 4.3 mIU/mL HYPO : > 5.5 mIU/mL HYPER : < 0.35 mIU/mL [id number] 13:40:00* Test Item Value Reference Range Interpretation Comments TROPONIN-I (test code = TROPI) <0.015 ng/mL 0-0.045 N BASIC METABOLIC [id number] 13:34:00* Test Item Value Reference Range Interpretation Comments SODIUM (test code = NA) 134 mmol/L 136-145 L POTASSIUM (test code = K) 3.7 mmol/L 3.5-5.1 N S pecimen 1+ Hemolysed.Some results MAY NOT be accurate due to hemolysis. CHLORIDE (test code = CL) 96.0 mmol/L 98-107 L CARBON DIOXIDE (test code = CO2) mmol/L 21-32 ANION GAP (test code = GAP) 10-20 GLUCOSE (test code = GLU) mg/dL 74-106 BLOOD UREA NITROGEN (test code = BUN) mg/dL 7-18 GLOMERULAR FILTRATION RATE (test code = GFR) mL/min >=60 CREATININE (test code = CREAT) mg/dL 0.55-1.02 BUN/CREATININE RATIO (test code = BUN/CREA) 10-20 CALCIUM (test code = CA) mg/dL 8.5-10.1 HEPATIC FUNCTION [id number] 13:34:00* Test Item Value Reference Range Interpretation Comments TOTAL PROTEIN (test code = PROT) gram/dL 6.4-8.2 ALBUMIN (test code = ALB) g/dL 3.4-5.0 GLOBULIN (test code = GLOB) gram/dL 2.7-4.2 ALBUMIN/GLOBULIN RATIO (test code = A/G) 0.75-1.50 BILIRUBIN TOTAL (test code = BILT) mg/dL 0.0-1.0 BILIRUBIN DIRECT (test code = BILD) mg/dL 0.0-0.20 SGOT/AST (test code = AST) IUnit/L 15-37 SGPT/ALT (test code = ALT) IUnit/L 12-78 ALKALINE PHOSPHATASE TOTAL (test code = ALKP) IUnit/L 45-117 [id number] 13:34:00* Test Item Value Reference Range Interpretation Comments MAGNESIUM (test code = MAG) mg/dL 1.8-2.4 THYROID STIMULATING [id number] 13:34:00* Test Item Value Reference Range Interpretation Comments THYROID STIMULATING HORMONE (test code = TSH) uIU/mL 0.36-3.7 4 BASIC METABOLIC [id number] 13:32:00* Test Item Value Reference Range Interpretation Comments SODIUM (test code = NA) 134 mmol/L 136-145 L POTASSIUM (test code = K) 3.7 mmol/L 3.5-5.1 N CHLORIDE (test code = CL) 96.0 mmol/L 98-107 L CARBON DIOXIDE (test code = CO2) mmol/L 21-32 ANION GAP (test code = GAP) 10-20 GLUCOSE (test code = GLU) mg/dL 74-106 BLOOD UREA NITROGEN (test code = BUN) mg/dL 7-18 GLOMERULAR FILTRATION RATE (test code = GFR) mL/min >=60 CREATININE (test code = CREAT) mg/dL 0.55-1.02 BUN/CREATININE RATIO (test code = BUN/CREA) 10-20 CALCIUM (test code = CA) mg/dL 8.5-10.1 HEPATIC FUNCTION [id number] 13:32:00* Test Item Value Reference Range Interpretation Comments TOTAL PROTEIN (test code = PROT) gram/dL 6.4-8.2 ALBUMIN (test code = ALB) g/dL 3.4-5.0 GLOBULIN (test code = GLOB) gram/dL 2.7-4.2 ALBUMIN/GLOBULIN RATIO (test code = A/G) 0.75-1.50 BILIRUBIN TOTAL (test code = BILT) mg/dL 0.0-1.0 BILIRUBIN DIRECT (test code = BILD) mg/dL 0.0-0.20 SGOT/AST (test code = AST) IUnit/L 15-37 SGPT/ALT (test code = ALT) IUnit/L 12-78 ALKALINE PHOSPHATASE TOTAL (test code = ALKP) IUnit/L 45-117 [id number] 13:32:00* Test Item Value Reference Range Interpretation Comments MAGNESIUM (test code = MAG) mg/dL 1.8-2.4 THYROID STIMULATING [id number] 13:32:00* Test Item Value Reference Range Interpretation Comments THYROID STIMULATING HORMONE (test code = TSH) uIU/mL 0.36-3.7 4 PROTHROMBIN [id number] 13:17:00* Test Item Value Reference Range Interpretation Comments PROTHROMBIN TIME PATIENT (test code = PTP) 11.2 seconds 9.0-14.0 N INTERNATIONAL NORMAL RATIO (test code = INR) 0.9 0.8-1.2 N The therapeutic range for oral anticoagulant therapy formost indications is an international normalized ratio (INR)of between 2.0 and 3.0. The recommended therapeutic INRrange for various clinical situations is listed below: Clinical Situation INR range Pulmonary e mbolism treatment (2.0-3.0)Venous thrombosis treatmentVenous thrombosis prophylaxis (high risk surgery)Prevention of systemic embolism from: Acute myocardial infarction Valvular heart disease Atrial fibrillation Mechanical prosthetic heart valves (2.5-3.5) IS PATIENT ON ANTICOAGULANTS? NTHROMBOPLASTIN TIME [id number] 13:17:00* Test Item Value Reference Range Interpretation Comments THROMBOPLASTIN TIME PARTIAL (test code = PTT) 30.3 seconds 25.0-36. 5 N IS PATIENT ON ANTICOAGULANTS? NCBC W/O [id number] 13:09:00* Test Item Value Reference Range Interpretation Comments WHITE BLOOD CELL (test code = WBC) 6.1 K/mm3 4.5-12.5 N RED BLOOD CELL (test code = RBC) 2.95 mill/mm3 3.7-5.2 L HEMOGLOBIN (test code = HGB) 8.8 gram/dL 11.5-15.5 L HEMATOCRIT (test code = HCT) 27.8 % 36.0-46.0 L MEAN CELL VOLUME (test code = MCV) 94.2 fL 80-98 N MEAN CELL HGB (test code = MCH) 29.8 picogram 27.0-33.0 N MEAN CELL HGB CONCETRATION (test code = MCHC) 31.7 gram/dL 33.0-36. 0 L RED CELL DISTRIBUTION WIDTH (test code = RDW) 13.2 % 11.6-16. 2 N PLATELET COUNT (test code = PLT) 304 K/mm3 150-450 N MEAN PLATELET VOLUME (test code = MPV) 9.1 fL 6.7-11.0 N - XR CHEST 1 [id number] 11:53:00 FAX: CHU ZAPATA MD [place]: B St: REG Name: [facility] : [birth year] Age/S: 68/F [address] [facility] Unit #: [id number] [place]: [place] [address] Phys: CHU ZAPATA MD Acct: [id number] Dis Date: Status: REG ER PHONE #: [phone] Exam Date: 09/15/2018 1148 FAX #: [phone] Reason: CHEST PAIN EXAMS: CPT CODE: [id number] XR CHEST 1 V 80794 EXAM: Chest x-ray, one view; INFORMATION: Chest pain, hypotension; FINDINGS: Lungs are clear; no infiltrates, no edema; no effusions, no pneumothorax. Unremarkable cardiomediastinal silhouette; the heart size is within normal limits. Well-positioned right IJ PermCath. IMPRESSION: No evidence of active cardiopulmonary disease. Enma ctronically Signed by Jarrett Lewis on 2018 at 1153 Reported and signed by: Damian Lewis M.D. CC: CHU ZAPATA MD Technologist: Joe Briseno RT(R) Trnscrd Date/Time/By: 09/15/2018 (7643) : By: EbenezerGRW Orig Print D/T: S: 09/15/2018 (9361) PAGE 1 Signed Report [id number] 16:07:00* Test Item Value Reference Range Interpretation Comments GLUBED (test code = GLUBED) 148 mg/dL 74-106 H Performed by certified business machine operator at [facility] [id number] 08:13:00* Test Item Value Reference Range Interpretation Comments GLUBED (test code = GLUBED) 77 mg/dL 74-106 N Performed by certified business machine operator at [facility] BASIC METABOLIC [id number] 07:00:00* Test Item Value Reference Range Interpretation Comments SODIUM (test code = NA) 137 mmol/L 136-145 N POTASSIUM (test code = K) 3.7 mmol/L 3.5-5.1 N CHLORIDE (test code = CL) 101.0 mmol/L 98-107 N CARBON DIOXIDE (test code = CO2) 30.0 mmol/L 21-32 N ANION GAP (test code = GAP) 9.7 10-20 L GLUCOSE (test code = GLU) 59 mg/dL 74-106 L BLOOD UREA NITROGEN (test code = BUN) 14 mg/dL 7-18 RESULT VERIFIED BY REPEAT ANALYSIS GLOMERULAR FILTRATION RATE (test code = GFR) 16 mL/min >=60 Estimated GFR by using Modified MDRD formula.Chronic kidney disease is defined as either kidney damageor GFR <60 mL/min/1.73 m2 for >3 months. CREATININE (test code = CREAT) 2.90 mg/dL 0.55-1.02 H Note change in reference range due to change in reagent. BUN/CREATININE RATIO (test code = BUN/CREA) 4.8 10-20 L CALCIUM (test code = CA) 8.1 mg/dL 8.5-10.1 L BASIC METABOLIC [id number] 06:43:00* Test Item Value Reference Range Interpretation Comments SODIUM (test code = NA) 137 mmol/L 136-145 N POTASSIUM (test code = K) 3.7 mmol/L 3.5-5.1 N CHLORIDE (test code = CL) 101.0 mmol/L 98-107 N CARBON DIOXIDE (test code = CO2) mmol/L 21-32 ANION GAP (test code = GAP) 10-20 GLUCOSE (test code = GLU) mg/dL 74-106 BLOOD UREA NITROGEN (test code = BUN) mg/dL 7-18 GLOMERULAR FILTRATION RATE (test code = GFR) mL/min >=60 CREATININE (test code = CREAT) mg/dL 0.55-1.02 BUN/CREATININE RATIO (test code = BUN/CREA) 10-20 CALCIUM (test code = CA) 8.1 mg/dL 8.5-10.1 L [id number] 21:12:00* Test Item Value Reference Range Interpretation Comments GLUBED (test code = GLUBED) 99 mg/dL 74-106 N Performed by certified business machine operator at [facility] [id number] 16:02:00* Test Item Value Reference Range Interpretation Comments GLUBED (test code = GLUBED) 140 mg/dL 74-106 H Performed by certified business machine operator at [facility] [id number] 13:23:00* Test Item Value Reference Range Interpretation Comments GLUBED (test code = GLUBED) 118 mg/dL 74-106 H Performed by certified business machine operator at [facility] HEPATITIS B CORE ANTIBODY,[id number] 09:16:00* Test Item Value Reference Range Interpretation Comments HEPATITIS B CORE ANTIBODY,TOT (test code = HBCAB) NEGATIVE NEGA TIVE BASIC METABOLIC [id number] 09:06:00* Test Item Value Reference Range Interpretation Comments SODIUM (test code = NA) 134 mmol/L 136-145 L POTASSIUM (test code = K) 3.6 mmol/L 3.5-5.1 N CHLORIDE (test code = CL) 98.0 mmol/L 98-107 N CARBON DIOXIDE (test code = CO2) 29.0 mmol/L 21-32 N ANION GAP (test code = GAP) 10.6 10-20 N GLUCOSE (test code = GLU) 133 mg/dL 74-106 H BLOOD UREA NITROGEN (test code = BUN) 26 mg/dL 7-18 H GLOMERULAR FILTRATION RATE (test code = GFR) 11 mL/min >=60 Estimated GFR by using Modified MDRD formula.Chronic kidney disease is defined as either kidney damageor GFR <60 mL/min/1.73 m2 for >3 months. CREATININE (test code = CREAT) 4.20 mg/dL 0.55-1.02 H Note change in reference range due to change in reagent. BUN/CREATININE RATIO (test code = BUN/CREA) 6.2 10-20 L CALCIUM (test code = CA) 7.8 mg/dL 8.5-10.1 L CBC W/AUTO [id number] 08:43:00* Test Item Value Reference Range Interpretation Comments WHITE BLOOD CELL (test code = WBC) 6.5 K/mm3 4.5-12.5 N RED BLOOD CELL (test code = RBC) 2.77 mill/mm3 3.7-5.2 L HEMOGLOBIN (test code = HGB) 8.2 gram/dL 11.5-15.5 L HEMATOCRIT (test code = HCT) 25.9 % 36.0-46.0 L MEAN CELL VOLUME (test code = MCV) 93.5 fL 80-98 N MEAN CELL HGB (test code = MCH) 29.6 picogram 27.0-33.0 N MEAN CELL HGB CONCETRATION (test code = MCHC) 31.7 gram/dL 33.0-36. 0 L RED CELL DISTRIBUTION WIDTH (test code = RDW) 13.1 % 11.6-16. 2 N RED CELL DISTRIBUTION WIDTH SD (test code = RDW-SD) 45.2 fL 37 .0-51.0 N PLATELET COUNT (test code = PLT) 263 K/mm3 150-450 N MEAN PLATELET VOLUME (test code = MPV) 9.3 fL 6.7-11.0 N NEUTROPHIL % (test code = NT%) 67.6 % 39.0-69.0 N IMMATURE GRANULOCYTE % (test code = IG%) 0.3 % 0.0-5.0 N LYMPHOCYTE % (test code = LY%) 20.4 % 25.0-55.0 L MONOCYTE % (test code = MO%) 6.6 % 0.0-10.0 N EOSINOPHIL % (test code = EO%) 4.0 % 0.0-5.0 N BASOPHIL % (test code = BA%) 1.1 % 0.0-1.0 H NUCLEATED RBC % (test code = NRBC%) 0.0 % 0-0 N NEUTROPHIL # (test code = NT#) 4.37 K/mm3 1.8-7.7 N IMMATURE GRANULOCYTE # (test code = IG#) 0.02 x10 3/uL 0-0.03 N LYMPHOCYTE # (test code = LY#) 1.32 K/mm3 1.0-5.0 N MONOCYTE # (test code = MO#) 0.43 K/mm3 0-0.8 N EOSINOPHIL # (test code = EO#) 0.26 K/mm3 0.0-0.5 N BASOPHIL # (test code = BA#) 0.07 K/mm3 0.0-0.2 N NUCLEATED RBC # (test code = NRBC#) 0.00 K/mm3 0.0-0.1 N MANUAL DIFF REQUIRED (test code = MDIFF) NO [id number] 07:59:00* Test Item Value Reference Range Interpretation Comments GLUBED (test code = GLUBED) 83 mg/dL 74-106 N Performed by certified business machine operator at [facility] [id number] 20:50:00* Test Item Value Reference Range Interpretation Comments GLUBED (test code = GLUBED) 143 mg/dL 74-106 H Performed by certified business machine operator at [facility] [id number] 16:19:00* Test Item Value Reference Range Interpretation Comments GLUBED (test code = GLUBED) 110 mg/dL 74-106 H Performed by certified business machine operator at [facility] [id number] 11:33:00* Test Item Value Reference Range Interpretation Comments GLUBED (test code = GLUBED) 253 mg/dL 74-106 H Performed by certified business machine operator at [facility] [id number] 07:49:00* Test Item Value Reference Range Interpretation Comments GLUBED (test code = GLUBED) 109 mg/dL 74-106 H Performed by certified business machine operator at [facility] COMPREHENSIVE METABOLIC [id number] 07:25:00* Test Item Value Reference Range Interpretation Comments SODIUM (test code = NA) 134 mmol/L 136-145 L POTASSIUM (test code = K) 3.4 mmol/L 3.5-5.1 L CHLORIDE (test code = CL) 98.0 mmol/L 98-107 N CARBON DIOXIDE (test code = CO2) 27.0 mmol/L 21-32 N ANION GAP (test code = GAP) 12.4 10-20 N GLUCOSE (test code = GLU) 80 mg/dL 74-106 N BLOOD UREA NITROGEN (test code = BUN) 22 mg/dL 7-18 H GLOMERULAR FILTRATION RATE (test code = GFR) 12 mL/min >=60 Estimated GFR by using Modified MDRD formula.Chronic kidney disease is defined as either kidney damageor GFR <60 mL/min/1.73 m2 for >3 months. CREATININE (test code = CREAT) 3.80 mg/dL 0.55-1.02 H Note change in reference range due to change in reagent. BUN/CREATININE RATIO (test code = BUN/CREA) 5.8 10-20 L TOTAL PROTEIN (test code = PROT) 5.9 gram/dL 6.4-8.2 L ALBUMIN (test code = ALB) 2.7 g/dL 3.4-5.0 L GLOBULIN (test code = GLOB) 3.2 gram/dL 2.7-4.2 N ALBUMIN/GLOBULIN RATIO (test code = A/G) 0.8 0.75-1.50 N CALCIUM (test code = CA) 7.8 mg/dL 8.5-10.1 L BILIRUBIN TOTAL (test code = BILT) 0.40 mg/dL 0.0-1.0 N SGOT/AST (test code = AST) 16 IUnit/L 15-37 N SGPT/ALT (test code = ALT) 8 IUnit/L 12-78 L ALKALINE PHOSPHATASE TOTAL (test code = ALKP) 87 IUnit/L 45-117 N Note change in reference range due to change in reagent. COMPREHENSIVE METABOLIC [id number] 07:22:00* Test Item Value Reference Range Interpretation Comments SODIUM (test code = NA) 134 mmol/L 136-145 L POTASSIUM (test code = K) 3.4 mmol/L 3.5-5.1 L CHLORIDE (test code = CL) 98.0 mmol/L 98-107 N CARBON DIOXIDE (test code = CO2) mmol/L 21-32 ANION GAP (test code = GAP) 10-20 GLUCOSE (test code = GLU) mg/dL 74-106 BLOOD UREA NITROGEN (test code = BUN) mg/dL 7-18 GLOMERULAR FILTRATION RATE (test code = GFR) mL/min >=60 CREATININE (test code = CREAT) mg/dL 0.55-1.02 BUN/CREATININE RATIO (test code = BUN/CREA) 10-20 TOTAL PROTEIN (test code = PROT) gram/dL 6.4-8.2 ALBUMIN (test code = ALB) g/dL 3.4-5.0 GLOBULIN (test code = GLOB) gram/dL 2.7-4.2 ALBUMIN/GLOBULIN RATIO (test code = A/G) 0.75-1.50 CALCIUM (test code = CA) mg/dL 8.5-10.1 BILIRUBIN TOTAL (test code = BILT) mg/dL 0.0-1.0 SGOT/AST (test code = AST) IUnit/L 15-37 SGPT/ALT (test code = ALT) IUnit/L 12-78 ALKALINE PHOSPHATASE TOTAL (test code = ALKP) IUnit/L 45-117 CBC W/AUTO [id number] 06:47:00* Test Item Value Reference Range Interpretation Comments WHITE BLOOD CELL (test code = WBC) 6.7 K/mm3 4.5-12.5 N RED BLOOD CELL (test code = RBC) 2.89 mill/mm3 3.7-5.2 L HEMOGLOBIN (test code = HGB) 8.3 gram/dL 11.5-15.5 L HEMATOCRIT (test code = HCT) 27.0 % 36.0-46.0 L MEAN CELL VOLUME (test code = MCV) 93.4 fL 80-98 N MEAN CELL HGB (test code = MCH) 28.7 picogram 27.0-33.0 N MEAN CELL HGB CONCETRATION (test code = MCHC) 30.7 gram/dL 33.0-36. 0 L RED CELL DISTRIBUTION WIDTH (test code = RDW) 13.1 % 11.6-16. 2 N RED CELL DISTRIBUTION WIDTH SD (test code = RDW-SD) 45.0 fL 37 .0-51.0 N PLATELET COUNT (test code = PLT) 259 K/mm3 150-450 N MEAN PLATELET VOLUME (test code = MPV) 9.7 fL 6.7-11.0 N NEUTROPHIL % (test code = NT%) 52.7 % 39.0-69.0 N IMMATURE GRANULOCYTE % (test code = IG%) 0.3 % 0.0-5.0 N LYMPHOCYTE % (test code = LY%) 33.7 % 25.0-55.0 N MONOCYTE % (test code = MO%) 7.7 % 0.0-10.0 N EOSINOPHIL % (test code = EO%) 4.9 % 0.0-5.0 N BASOPHIL % (test code = BA%) 0.7 % 0.0-1.0 N NUCLEATED RBC % (test code = NRBC%) 0.0 % 0-0 N NEUTROPHIL # (test code = NT#) 3.54 K/mm3 1.8-7.7 N IMMATURE GRANULOCYTE # (test code = IG#) 0.02 x10 3/uL 0-0.03 N LYMPHOCYTE # (test code = LY#) 2.27 K/mm3 1.0-5.0 N MONOCYTE # (test code = MO#) 0.52 K/mm3 0-0.8 N EOSINOPHIL # (test code = EO#) 0.33 K/mm3 0.0-0.5 N BASOPHIL # (test code = BA#) 0.05 K/mm3 0.0-0.2 N NUCLEATED RBC # (test code = NRBC#) 0.00 K/mm3 0.0-0.1 N MANUAL DIFF REQUIRED (test code = MDIFF) NO [id number] 05:49:00* Test Item Value Reference Range Interpretation Comments GLUBED (test code = GLUBED) 81 mg/dL 74-106 N Performed by certified business machine operator at [facility] [id number] 16:52:00* Test Item Value Reference Range Interpretation Comments GLUBED (test code = GLUBED) 113 mg/dL 74-106 H Performed by certified business machine operator at [facility] [id number] 12:30:00* Test Item Value Reference Range Interpretation Comments GLUBED (test code = GLUBED) 219 mg/dL 74-106 H Performed by certified business machine operator at [facility] [id number] 09:03:00* Test Item Value Reference Range Interpretation Comments GLUBED (test code = GLUBED) 236 mg/dL 74-106 H Performed by certified business machine operator at [facility] [id number] 09:03:00* Test Item Value Reference Range Interpretation Comments GLUBED (test code = GLUBED) 58 mg/dL 74-106 L Performed by certified business machine operator at [facility] [id number] 07:39:00* Test Item Value Reference Range Interpretation Comments GLUBED (test code = GLUBED) 50 mg/dL 74-106 L Performed by certified business machine operator at [facility] BASIC METABOLIC [id number] 06:42:00* Test Item Value Reference Range Interpretation Comments SODIUM (test code = NA) 137 mmol/L 136-145 N POTASSIUM (test code = K) 3.7 mmol/L 3.5-5.1 N CHLORIDE (test code = CL) 101.0 mmol/L 98-107 N CARBON DIOXIDE (test code = CO2) 30.0 mmol/L 21-32 N ANION GAP (test code = GAP) 9.7 10-20 L GLUCOSE (test code = GLU) 50 mg/dL 74-106 L BLOOD UREA NITROGEN (test code = BUN) 13 mg/dL 7-18 RESULT VERIFIED BY REPEAT ANALYSIS GLOMERULAR FILTRATION RATE (test code = GFR) 16 mL/min >=60 Estimated GFR by using Modified MDRD formula.Chronic kidney disease is defined as either kidney damageor GFR <60 mL/min/1.73 m2 for >3 months. CREATININE (test code = CREAT) 2.90 mg/dL 0.55-1.02 H Note change in reference range due to change in reagent. BUN/CREATININE RATIO (test code = BUN/CREA) 4.5 10-20 L CALCIUM (test code = CA) 8.3 mg/dL 8.5-10.1 L BASIC METABOLIC [id number] 05:51:00* Test Item Value Reference Range Interpretation Comments SODIUM (test code = NA) 137 mmol/L 136-145 N POTASSIUM (test code = K) 3.7 mmol/L 3.5-5.1 N CHLORIDE (test code = CL) 101.0 mmol/L 98-107 N CARBON DIOXIDE (test code = CO2) mmol/L 21-32 ANION GAP (test code = GAP) 10-20 GLUCOSE (test code = GLU) mg/dL 74-106 BLOOD UREA NITROGEN (test code = BUN) mg/dL 7-18 GLOMERULAR FILTRATION RATE (test code = GFR) mL/min >=60 CREATININE (test code = CREAT) mg/dL 0.55-1.02 BUN/CREATININE RATIO (test code = BUN/CREA) 10-20 CALCIUM (test code = CA) mg/dL 8.5-10.1 [id number] 17:11:00* Test Item Value Reference Range Interpretation Comments GLUBED (test code = GLUBED) 214 mg/dL 74-106 H Performed by certified business machine operator at [facility] [id number] 08:36:00* Test Item Value Reference Range Interpretation Comments GLUBED (test code = GLUBED) 151 mg/dL 74-106 H Performed by certified business machine operator at [facility] BASIC METABOLIC [id number] 06:52:00* Test Item Value Reference Range Interpretation Comments SODIUM (test code = NA) 136 mmol/L 136-145 N POTASSIUM (test code = K) 3.3 mmol/L 3.5-5.1 L CHLORIDE (test code = CL) 100.0 mmol/L 98-107 N CARBON DIOXIDE (test code = CO2) 28.0 mmol/L 21-32 N ANION GAP (test code = GAP) 11.3 10-20 N GLUCOSE (test code = GLU) 36 mg/dL 74-106 Re sults called to [id number] by [email or web address] 09/07/18 0650Critical results verified and read back by Nurse? Y BLOOD UREA NITROGEN (test code = BUN) 25 mg/dL 7-18 H GLOMERULAR FILTRATION RATE (test code = GFR) 11 mL/min >=60 Estimated GFR by using Modified MDRD formula.Chronic kidney disease is defined as either kidney damageor GFR <60 mL/min/1.73 m2 for >3 months. CREATININE (test code = CREAT) 4.20 mg/dL 0.55-1.02 H Note change in reference range due to change in reagent. BUN/CREATININE RATIO (test code = BUN/CREA) 6.0 10-20 L CALCIUM (test code = CA) 7.7 mg/dL 8.5-10.1 L [id number] 06:52:00* Test Item Value Reference Range Interpretation Comments PHOSPHORUS (test code = PHOS) 4.1 mg/dL 2.5-4.9 N [id number] 06:52:00* Test Item Value Reference Range Interpretation Comments MAGNESIUM (test code = MAG) 1.8 mg/dL 1.8-2.4 N BASIC METABOLIC [id number] 06:26:00* Test Item Value Reference Range Interpretation Comments SODIUM (test code = NA) 136 mmol/L 136-145 N POTASSIUM (test code = K) 3.3 mmol/L 3.5-5.1 L CHLORIDE (test code = CL) 100.0 mmol/L 98-107 N CARBON DIOXIDE (test code = CO2) mmol/L 21-32 ANION GAP (test code = GAP) 10-20 GLUCOSE (test code = GLU) mg/dL 74-106 BLOOD UREA NITROGEN (test code = BUN) mg/dL 7-18 GLOMERULAR FILTRATION RATE (test code = GFR) mL/min >=60 CREATININE (test code = CREAT) mg/dL 0.55-1.02 BUN/CREATININE RATIO (test code = BUN/CREA) 10-20 CALCIUM (test code = CA) mg/dL 8.5-10.1 [id number] 06:26:00* Test Item Value Reference Range Interpretation Comments PHOSPHORUS (test code = PHOS) mg/dL 2.5-4.9 [id number] 06:26:00* Test Item Value Reference Range Interpretation Comments MAGNESIUM (test code = MAG) mg/dL 1.8-2.4 CBC W/O [id number] 06:10:00* Test Item Value Reference Range Interpretation Comments WHITE BLOOD CELL (test code = WBC) 7.5 K/mm3 4.5-12.5 N RED BLOOD CELL (test code = RBC) 2.93 mill/mm3 3.7-5.2 L HEMOGLOBIN (test code = HGB) 8.5 gram/dL 11.5-15.5 L HEMATOCRIT (test code = HCT) 27.6 % 36.0-46.0 L MEAN CELL VOLUME (test code = MCV) 94.2 fL 80-98 N MEAN CELL HGB (test code = MCH) 29.0 picogram 27.0-33.0 N MEAN CELL HGB CONCETRATION (test code = MCHC) 30.8 gram/dL 33.0-36. 0 L RED CELL DISTRIBUTION WIDTH (test code = RDW) 13.3 % 11.6-16. 2 N PLATELET COUNT (test code = PLT) 251 K/mm3 150-450 RESULT VERIFIED BY REPEAT ANALYSIS MEAN PLATELET VOLUME (test code = MPV) 9.8 fL 6.7-11.0 N [id number] 22:35:00* Test Item Value Reference Range Interpretation Comments GLUBED (test code = GLUBED) 77 mg/dL 74-106 N Performed by certified business machine operator at [facility] [id number] 16:53:00* Test Item Value Reference Range Interpretation Comments GLUBED (test code = GLUBED) 127 mg/dL 74-106 H Performed by certified business machine operator at [facility] [id number] 11:28:00* Test Item Value Reference Range Interpretation Comments GLUBED (test code = GLUBED) 87 mg/dL 74-106 N Performed by certified business machine operator at [facility] [id number] 10:11:00* Test Item Value Reference Range Interpretation Comments GLUBED (test code = GLUBED) 140 mg/dL 74-106 H Performed by certified business machine operator at [facility] [id number] 08:30:00* Test Item Value Reference Range Interpretation Comments GLUBED (test code = GLUBED) 35 mg/dL 74-106 LL Test performed as P.O.C. by nursing staff.[facility] BASIC METABOLIC [id number] 07:20:00* Test Item Value Reference Range Interpretation Comments SODIUM (test code = NA) 139 mmol/L 136-145 N POTASSIUM (test code = K) 3.2 mmol/L 3.5-5.1 L CHLORIDE (test code = CL) 101.0 mmol/L 98-107 N CARBON DIOXIDE (test code = CO2) 30.0 mmol/L 21-32 N ANION GAP (test code = GAP) 11.2 10-20 N GLUCOSE (test code = GLU) 39 mg/dL 74-106 Re sults called to [place] [id number] by [email or web address] 09/06/18 0720Critical results verified and read back by Nurse? Y BLOOD UREA NITROGEN (test code = BUN) 15 mg/dL 7-18 RESULT VERIFIED BY REPEAT ANALYSIS GLOMERULAR FILTRATION RATE (test code = GFR) 15 mL/min >=60 Estimated GFR by using Modified MDRD formula.Chronic kidney disease is defined as either kidney damageor GFR <60 mL/min/1.73 m2 for >3 months. CREATININE (test code = CREAT) 3.10 mg/dL 0.55-1.02 H Note change in reference range due to change in reagent. BUN/CREATININE RATIO (test code = BUN/CREA) 4.8 10-20 L CALCIUM (test code = CA) 7.8 mg/dL 8.5-10.1 L BASIC METABOLIC [id number] 05:32:00* Test Item Value Reference Range Interpretation Comments SODIUM (test code = NA) 139 mmol/L 136-145 N POTASSIUM (test code = K) 3.2 mmol/L 3.5-5.1 L CHLORIDE (test code = CL) 101.0 mmol/L 98-107 N CARBON DIOXIDE (test code = CO2) mmol/L 21-32 ANION GAP (test code = GAP) 10-20 GLUCOSE (test code = GLU) mg/dL 74-106 BLOOD UREA NITROGEN (test code = BUN) mg/dL 7-18 GLOMERULAR FILTRATION RATE (test code = GFR) mL/min >=60 CREATININE (test code = CREAT) mg/dL 0.55-1.02 BUN/CREATININE RATIO (test code = BUN/CREA) 10-20 CALCIUM (test code = CA) mg/dL 8.5-10.1 AB HEPATITIS B [id number] 05:12:00* Test Item Value Reference Range Interpretation Comments AB HEPATITIS B SURFACE (test code = HBSAB) Non Reactive () Non Reactive: Inconsistent with immunity, less than 10 mIU/mL Reactive: Consistent with immunity, greater than 9.9 mIU/mL [id number] 20:49:00* Test Item Value Reference Range Interpretation Comments GLUBED (test code = GLUBED) 35 mg/dL 74-106 LL Test performed as P.O.C. by nursing staff.[facility] [id number] 16:17:00* Test Item Value Reference Range Interpretation Comments GLUBED (test code = GLUBED) 216 mg/dL 74-106 H Performed by certified business machine operator at [facility] BASIC METABOLIC [id number] 08:09:00* Test Item Value Reference Range Interpretation Comments SODIUM (test code = NA) 136 mmol/L 136-145 N POTASSIUM (test code = K) 3.7 mmol/L 3.5-5.1 N CHLORIDE (test code = CL) 100.0 mmol/L 98-107 N CARBON DIOXIDE (test code = CO2) 23.0 mmol/L 21-32 N ANION GAP (test code = GAP) 16.7 10-20 N GLUCOSE (test code = GLU) 109 mg/dL 74-106 H BLOOD UREA NITROGEN (test code = BUN) 33 mg/dL 7-18 H GLOMERULAR FILTRATION RATE (test code = GFR) 9 mL/min >=60 Estimated GFR by using Modified MDRD formula.Chronic kidney disease is defined as either kidney damageor GFR <60 mL/min/1.73 m2 for >3 months. CREATININE (test code = CREAT) 4.70 mg/dL 0.55-1.02 H Note change in reference range due to change in reagent. BUN/CREATININE RATIO (test code = BUN/CREA) 7.0 10-20 L CALCIUM (test code = CA) 8.7 mg/dL 8.5-10.1 N BASIC METABOLIC [id number] 07:57:00* Test Item Value Reference Range Interpretation Comments SODIUM (test code = NA) 136 mmol/L 136-145 N POTASSIUM (test code = K) 3.7 mmol/L 3.5-5.1 N CHLORIDE (test code = CL) 100.0 mmol/L 98-107 N CARBON DIOXIDE (test code = CO2) mmol/L 21-32 ANION GAP (test code = GAP) 10-20 GLUCOSE (test code = GLU) mg/dL 74-106 BLOOD UREA NITROGEN (test code = BUN) mg/dL 7-18 GLOMERULAR FILTRATION RATE (test code = GFR) mL/min >=60 CREATININE (test code = CREAT) mg/dL 0.55-1.02 BUN/CREATININE RATIO (test code = BUN/CREA) 10-20 CALCIUM (test code = CA) mg/dL 8.5-10.1 CBC W/O [id number] 07:39:00* Test Item Value Reference Range Interpretation Comments WHITE BLOOD CELL (test code = WBC) 13.6 K/mm3 4.5-12.5 H RED BLOOD CELL (test code = RBC) 3.32 mill/mm3 3.7-5.2 L HEMOGLOBIN (test code = HGB) 9.9 gram/dL 11.5-15.5 L HEMATOCRIT (test code = HCT) 31.3 % 36.0-46.0 L MEAN CELL VOLUME (test code = MCV) 94.3 fL 80-98 N MEAN CELL HGB (test code = MCH) 29.8 picogram 27.0-33.0 N MEAN CELL HGB CONCETRATION (test code = MCHC) 31.6 gram/dL 33.0-36. 0 L RED CELL DISTRIBUTION WIDTH (test code = RDW) 13.6 % 11.6-16. 2 N PLATELET COUNT (test code = PLT) 302 K/mm3 150-450 RESULT VERIFIED BY REPEAT ANALYSIS MEAN PLATELET VOLUME (test code = MPV) 10.5 fL 6.7-11.0 N [id number] 21:03:00* Test Item Value Reference Range Interpretation Comments GLUBED (test code = GLUBED) 167 mg/dL 74-106 H Performed by certified business machine operator at [facility] [id number] 16:41:00* Test Item Value Reference Range Interpretation Comments GLUBED (test code = GLUBED) 202 mg/dL 74-106 H Performed by certified business machine operator at [facility] [id number] 12:47:00* Test Item Value Reference Range Interpretation Comments GLUBED (test code = GLUBED) 97 mg/dL 74-106 N Performed by certified business machine operator at [facility] [id number] 10:44:00* Test Item Value Reference Range Interpretation Comments GLUBED (test code = GLUBED) 92 mg/dL 74-106 N Performed by certified business machine operator at [facility] - [place] GUIDANCE VASC [id number] 09:55:00 Name: TAY HERNANDEZ [facility] [employer] [facility] : 1950 Age/S: 68 / F [address] Unit #: [id number] Loc: [place] [address] Phys: Damian Lewis MD Acct: [id number] Dis Date: Status: ADM IN PHONE #: [phone] Exam Date: 08/31/2018934 FAX #: [phone] Reason: EXAMS: CPT CODE: [id number] US GUIDANCE VASC ACCESS [id number] Fluoro Time: 18 DAP (Gy m2): 2231 Air Kerma (mGy): 4.49 EXAM: Insertion of a tunneled hemodialysis catheter with sonographic and fluoroscopic guidance and conscious sedation; INFORMATION: End-stage renal disease; TECHNIQUE AND FINDINGS: Conscious sedation start time: 0910 hours; completion time: 934 hours; Under physician supervision 1 mg of Versed and 25 mcg of fentanyl were administered intravenously for sedation. The patient's heart rate, blood pressure and pulse oximetry were continuously monitored by a trained registered nurse. Physician ndwx-kl-gobd sedation time was 15 minutes. Benefits and risks of the procedure including risks of hemorrhage and infection, were explained to the patient and informed consent was obtained. The patient was placed supine on the f luoroscopy table and sonography of the right neck region was performed. It demonstrated a patent and compressible right internal jugular vein. Sonog raphic images were stored in PACS. Conscious sedation was initiated with Versed and Fentanyl. The patient's skin in the right neck and chest r egion was then prepped and draped in the usual sterile fashion, using all elements of maximal sterile barrier technique. Xylocaine was admini stered and using real-time sonographic guidance the right internal jugular vein was accessed with a micropuncture system, followed by insertion of an 035 guidewire. Under fluoroscopic guidance, sequential dilatation was pe rformed followed by insertion of a 15 Haitian peel-away sheath. A sub cutaneous tunnel was then created in the usual sterile fashion and a 14.5 Haitian tunneled hemodialysis catheter was inserted and positioned fluorosc opically with its tip in the cranial aspect of the right atrium. Goo d blood return was noticed; the catheter was sutured to the skin and flush ed with heparinized saline. There were no complications. I MPRESSION: Successful insertion of a tunneled hemodialysis catheter with sonographic and fluoroscopic guidance and conscious sedation. Fluoroscopy Time: 18 sec CAK : 449 mGy DAP : 2231 mGy sq cm PAGE 1 Signed Report (DALI NUED) Name: TAY HERNANDEZ [employer] : 1950 Age/S: 68 / F [address] Unit #: [id number] Loc: [place] [address] Phys: Damian Walton MD Acct: [id number] Dis Date: Status: ADM IN PHON E #: [phone] Exam Date: 08/31/2018 0935 FAX #: Reason: EXAMS: CPT CODE: [id number] US GUIDAN CE VASC ACCESS [id number] Fluoro Time: 18 DAP (Gy m2): 2231 Air Kerma (mGy): 4.49 <Continued> at 0955 Reported and signed by: Damian Lewis M.D. CC: Linda Vazquez MD; Dayo Valadez MD Technologist: [facility] Date/Time: 09/04/2018 (0955) tCAROLINE Orig Print D/T: S: 09/04/2018 (0935) PAGE 2 Signed Report - SP FLUORO GUID CTRL ACC [id number] 09:55:00 Name: TAY HERNANDEZ [employer] : 1950 Age/S: 68 / F [address] Unit #: [id number] Loc: [place] [address] Phys: Damian Lewis MD Acct: [id number] Dis Date: Status: ADM IN PHONE #: [phone] Exam Date: 08/31/2018934 FAX #: [phone] Reason: EXAMS: CPT CODE: [id number] SP FLUORO GUID CTRL ACC DEV 33071 Fluoro Time: DAP (Gy m2): Air Kerma (mGy): EXAM: Insertion of a tunneled hemodialysis catheter with sonographic and fluoroscopic guidance and conscious sedation; INFORMATION: End-stage renal disease; TECHNIQUE AND FINDINGS: Conscious sedation start time: 10 hours; completion time: 934 hours; Under physician supervision 1 mg of Versed and 25 mcg of fentanyl were administered intravenously for sedation. The patient's heart rate, blood pressure and pulse oximetry were continuously monitored by a trained registered nurse. Physician wgza-wx-wzdt sedation time was 15 minutes. Benefits and risks of the procedure including risks of hemorrhage and infection, were explained to the patient and informed consent was obtained. The patient was placed supine on the f luoroscopy table and sonography of the right neck region was performed. It demonstrated a patent and compressible right internal jugular vein. Sonog raphic images were stored in PACS. Conscious sedation was initiated with Versed and Fentanyl. The patient's skin in the right neck and chest r egion was then prepped and draped in the usual sterile fashion, using all elements of maximal sterile barrier technique. Xylocaine was admini stered and using real-time sonographic guidance the right internal jugular vein was accessed with a micropuncture system, followed by insertion of an 035 guidewire. Under fluoroscopic guidance, sequential dilatation was pe rformed followed by insertion of a 15 Haitian peel-away sheath. A sub cutaneous tunnel was then created in the usual sterile fashion and a 14.5 Haitian tunneled hemodialysis catheter was inserted and positioned fluorosc opically with its tip in the cranial aspect of the right atrium. Goo d blood return was noticed; the catheter was sutured to the skin and flush ed with heparinized saline. There were no complications. I MPRESSION: Successful insertion of a tunneled hemodialysis catheter with sonographic and fluoroscopic guidance and conscious sedation. Fluoroscopy Time: 18 sec CAK : 449 mGy DAP : 2231 mGy sq cm PAGE 1 Signed Report (DALI NUTRACY) Name: TAY HERNANDEZ [employer] : 1950 Age/S: 68 / F [address] Unit #: [id number] Loc: [place] [address] Phys: Damian Walton MD Acct: [id number] Dis Date: Status: ADM IN PHON E #: [phone] Exam Date: 08/31/2018 0935 FAX #: Reason: EXAMS: CPT CODE: [id number] SP FLUORO GUID CTRL ACC DEV [id number] Fluoro Time: DAP (Gy m2): Air Kerma (mGy): <Continued> at 0955 Reported and signed by: Damian Lewis M.D. CC: Linda Vazquez MD; Dayo Valadez MD Technologist: Andrea Quick [facility] Date/Time: 09/04/2018 (954) Marlene Orig Print D/T: S: 09/04/2018 (6146) PAGE 2 Signed Report GLUBED 2018-09-04 09:06:00* Test Item Value Reference Range Interpretation Comments GLUBED (test code = GLUBED) 74 mg/dL 74-106 N Performed by certified business machine operator at [facility] BASIC METABOLIC [id number] 07:46:00* Test Item Value Reference Range Interpretation Comments SODIUM (test code = NA) 139 mmol/L 136-145 N POTASSIUM (test code = K) 3.4 mmol/L 3.5-5.1 L CHLORIDE (test code = CL) 103.0 mmol/L 98-107 N CARBON DIOXIDE (test code = CO2) 30.0 mmol/L 21-32 N ANION GAP (test code = GAP) 9.4 10-20 L GLUCOSE (test code = GLU) 48 mg/dL 74-106 LL Re sults called to [id number] by RIMMA 09/04/18 0746Critical results verified and read back by Nurse? Y BLOOD UREA NITROGEN (test code = BUN) 18 mg/dL 7-18 N GLOMERULAR FILTRATION RATE (test code = GFR) 14 mL/min >=60 Estimated GFR by using Modified MDRD formula.Chronic kidney disease is defined as either kidney damageor GFR <60 mL/min/1.73 m2 for >3 months. CREATININE (test code = CREAT) 3.30 mg/dL 0.55-1.02 H Note change in reference range due to change in reagent. BUN/CREATININE RATIO (test code = BUN/CREA) 5.5 10-20 L CALCIUM (test code = CA) 8.2 mg/dL 8.5-10.1 L BASIC METABOLIC [id number] 06:56:00* Test Item Value Reference Range Interpretation Comments SODIUM (test code = NA) 139 mmol/L 136-145 N POTASSIUM (test code = K) 3.4 mmol/L 3.5-5.1 L CHLORIDE (test code = CL) 103.0 mmol/L 98-107 N CARBON DIOXIDE (test code = CO2) mmol/L 21-32 ANION GAP (test code = GAP) 10-20 GLUCOSE (test code = GLU) mg/dL 74-106 BLOOD UREA NITROGEN (test code = BUN) mg/dL 7-18 GLOMERULAR FILTRATION RATE (test code = GFR) mL/min >=60 CREATININE (test code = CREAT) mg/dL 0.55-1.02 BUN/CREATININE RATIO (test code = BUN/CREA) 10-20 CALCIUM (test code = CA) mg/dL 8.5-10.1 [id number] 00:14:00* Test Item Value Reference Range Interpretation Comments GLUBED (test code = GLUBED) 61 mg/dL 74-106 L Performed by certified business machine operator at [facility] [id number] 17:17:00* Test Item Value Reference Range Interpretation Comments GLUBED (test code = GLUBED) 107 mg/dL 74-106 H Performed by certified business machine operator at [facility] [id number] 12:08:00* Test Item Value Reference Range Interpretation Comments GLUBED (test code = GLUBED) 128 mg/dL 74-106 H Performed by certified business machine operator at [facility] CBC W/AUTO [id number] 09:08:00* Test Item Value Reference Range Interpretation Comments WHITE BLOOD CELL (test code = WBC) 6.1 K/mm3 4.5-12.5 N RED BLOOD CELL (test code = RBC) 2.93 mill/mm3 3.7-5.2 L HEMOGLOBIN (test code = HGB) 8.5 gram/dL 11.5-15.5 L HEMATOCRIT (test code = HCT) 28.0 % 36.0-46.0 L MEAN CELL VOLUME (test code = MCV) 95.6 fL 80-98 N MEAN CELL HGB (test code = MCH) 29.0 picogram 27.0-33.0 N MEAN CELL HGB CONCETRATION (test code = MCHC) 30.4 gram/dL 33.0-36. 0 L RED CELL DISTRIBUTION WIDTH (test code = RDW) 13.6 % 11.6-16. 2 N RED CELL DISTRIBUTION WIDTH SD (test code = RDW-SD) 47.1 fL 37 .0-51.0 N PLATELET COUNT (test code = PLT) 228 K/mm3 150-450 N MEAN PLATELET VOLUME (test code = MPV) 10.1 fL 6.7-11.0 N NEUTROPHIL % (test code = NT%) 62.6 % 39.0-69.0 N IMMATURE GRANULOCYTE % (test code = IG%) 0.3 % 0.0-5.0 N LYMPHOCYTE % (test code = LY%) 24.9 % 25.0-55.0 L MONOCYTE % (test code = MO%) 7.4 % 0.0-10.0 N EOSINOPHIL % (test code = EO%) 3.8 % 0.0-5.0 N BASOPHIL % (test code = BA%) 1.0 % 0.0-1.0 N NUCLEATED RBC % (test code = NRBC%) 0.0 % 0-0 N NEUTROPHIL # (test code = NT#) 3.79 K/mm3 1.8-7.7 N IMMATURE GRANULOCYTE # (test code = IG#) 0.02 x10 3/uL 0-0.03 N LYMPHOCYTE # (test code = LY#) 1.51 K/mm3 1.0-5.0 N MONOCYTE # (test code = MO#) 0.45 K/mm3 0-0.8 N EOSINOPHIL # (test code = EO#) 0.23 K/mm3 0.0-0.5 N BASOPHIL # (test code = BA#) 0.06 K/mm3 0.0-0.2 N NUCLEATED RBC # (test code = NRBC#) 0.00 K/mm3 0.0-0.1 N MANUAL DIFF REQUIRED (test code = MDIFF) NO BASIC METABOLIC [id number] 07:44:00* Test Item Value Reference Range Interpretation Comments SODIUM (test code = NA) 138 mmol/L 136-145 N POTASSIUM (test code = K) 3.8 mmol/L 3.5-5.1 N CHLORIDE (test code = CL) 103.0 mmol/L 98-107 N CARBON DIOXIDE (test code = CO2) 27.0 mmol/L 21-32 N ANION GAP (test code = GAP) 11.8 10-20 N GLUCOSE (test code = GLU) 106 mg/dL 74-106 N BLOOD UREA NITROGEN (test code = BUN) 27 mg/dL 7-18 H GLOMERULAR FILTRATION RATE (test code = GFR) 11 mL/min >=60 Estimated GFR by using Modified MDRD formula.Chronic kidney disease is defined as either kidney damageor GFR <60 mL/min/1.73 m2 for >3 months. CREATININE (test code = CREAT) 4.00 mg/dL 0.55-1.02 H Note change in reference range due to change in reagent. BUN/CREATININE RATIO (test code = BUN/CREA) 6.8 10-20 L CALCIUM (test code = CA) 8.5 mg/dL 8.5-10.1 N CALCIUM [id number] 07:44:00* Test Item Value Reference Range Interpretation Comments CALCIUM IONIZED (test code = MAG) 1.16 mmol/L 1.12-1.32 N BASIC METABOLIC [id number] 07:26:00* Test Item Value Reference Range Interpretation Comments SODIUM (test code = NA) 138 mmol/L 136-145 N POTASSIUM (test code = K) 3.8 mmol/L 3.5-5.1 N CHLORIDE (test code = CL) 103.0 mmol/L 98-107 N CARBON DIOXIDE (test code = CO2) mmol/L 21-32 ANION GAP (test code = GAP) 10-20 GLUCOSE (test code = GLU) mg/dL 74-106 BLOOD UREA NITROGEN (test code = BUN) mg/dL 7-18 GLOMERULAR FILTRATION RATE (test code = GFR) mL/min >=60 CREATININE (test code = CREAT) mg/dL 0.55-1.02 BUN/CREATININE RATIO (test code = BUN/CREA) 10-20 CALCIUM (test code = CA) mg/dL 8.5-10.1 CALCIUM [id number] 07:26:00* Test Item Value Reference Range Interpretation Comments CALCIUM IONIZED (test code = MAG) 1.16 mmol/L 1.12-1.32 N BASIC METABOLIC [id number] 07:14:00* Test Item Value Reference Range Interpretation Comments SODIUM (test code = NA) mmol/L 136-145 POTASSIUM (test code = K) mmol/L 3.5-5.1 CHLORIDE (test code = CL) mmol/L 98-107 CARBON DIOXIDE (test code = CO2) mmol/L 21-32 ANION GAP (test code = GAP) 10-20 GLUCOSE (test code = GLU) mg/dL 74-106 BLOOD UREA NITROGEN (test code = BUN) mg/dL 7-18 GLOMERULAR FILTRATION RATE (test code = GFR) mL/min >=60 CREATININE (test code = CREAT) mg/dL 0.55-1.02 BUN/CREATININE RATIO (test code = BUN/CREA) 10-20 CALCIUM (test code = CA) mg/dL 8.5-10.1 CALCIUM [id number] 07:14:00* Test Item Value Reference Range Interpretation Comments CALCIUM IONIZED (test code = MAG) 1.16 mmol/L 1.12-1.32 N [id number] 21:07:00* Test Item Value Reference Range Interpretation Comments GLUBED (test code = GLUBED) 138 mg/dL 74-106 H Performed by certified business machine operator at [facility] [id number] 16:51:00* Test Item Value Reference Range Interpretation Comments GLUBED (test code = GLUBED) 121 mg/dL 74-106 H Performed by certified business machine operator at [facility] [id number] 12:18:00* Test Item Value Reference Range Interpretation Comments GLUBED (test code = GLUBED) 181 mg/dL 74-106 H Performed by certified business machine operator at [facility] [id number] 08:21:00* Test Item Value Reference Range Interpretation Comments GLUBED (test code = GLUBED) 86 mg/dL 74-106 N Performed by certified business machine operator at [facility] [id number] 06:19:00* Test Item Value Reference Range Interpretation Comments GLUBED (test code = GLUBED) 80 mg/dL 74-106 N Performed by certified business machine operator at [facility] [id number] 20:43:00* Test Item Value Reference Range Interpretation Comments GLUBED (test code = GLUBED) 102 mg/dL 74-106 N Performed by certified business machine operator at [facility] [id number] 20:43:00* Test Item Value Reference Range Interpretation Comments GLUBED (test code = GLUBED) 64 mg/dL 74-106 L Performed by certified business machine operator at [facility] [id number] 15:23:00* Test Item Value Reference Range Interpretation Comments GLUBED (test code = GLUBED) 185 mg/dL 74-106 H Performed by certified business machine operator at [facility] [id number] 15:05:00* Test Item Value Reference Range Interpretation Comments GLUBED (test code = GLUBED) 103 mg/dL 74-106 N Performed by certified business machine operator at [facility] BASIC METABOLIC [id number] 05:42:00* Test Item Value Reference Range Interpretation Comments SODIUM (test code = NA) 143 mmol/L 136-145 N POTASSIUM (test code = K) 3.7 mmol/L 3.5-5.1 N CHLORIDE (test code = CL) 110.0 mmol/L 98-107 H CARBON DIOXIDE (test code = CO2) 27.0 mmol/L 21-32 N ANION GAP (test code = GAP) 9.7 10-20 L GLUCOSE (test code = GLU) 53 mg/dL 74-106 L BLOOD UREA NITROGEN (test code = BUN) 27 mg/dL 7-18 H RESULT VERIFIED BY REPEAT ANALYSIS GLOMERULAR FILTRATION RATE (test code = GFR) 14 mL/min >=60 Estimated GFR by using Modified MDRD formula.Chronic kidney disease is defined as either kidney damageor GFR <60 mL/min/1.73 m2 for >3 months. CREATININE (test code = CREAT) 3.20 mg/dL 0.55-1.02 H Note change in reference range due to change in reagent. BUN/CREATININE RATIO (test code = BUN/CREA) 8.4 10-20 L CALCIUM (test code = CA) 7.9 mg/dL 8.5-10.1 L CBC W/O [id number] 04:46:00* Test Item Value Reference Range Interpretation Comments WHITE BLOOD CELL (test code = WBC) 7.5 K/mm3 4.5-12.5 N RED BLOOD CELL (test code = RBC) 2.94 mill/mm3 3.7-5.2 L HEMOGLOBIN (test code = HGB) 8.8 gram/dL 11.5-15.5 L HEMATOCRIT (test code = HCT) 28.0 % 36.0-46.0 L MEAN CELL VOLUME (test code = MCV) 95.2 fL 80-98 N MEAN CELL HGB (test code = MCH) 29.9 picogram 27.0-33.0 N MEAN CELL HGB CONCETRATION (test code = MCHC) 31.4 gram/dL 33.0-36. 0 L RED CELL DISTRIBUTION WIDTH (test code = RDW) 13.9 % 11.6-16. 2 N PLATELET COUNT (test code = PLT) 223 K/mm3 150-450 N MEAN PLATELET VOLUME (test code = MPV) 9.7 fL 6.7-11.0 N [id number] 20:26:00* Test Item Value Reference Range Interpretation Comments GLUBED (test code = GLUBED) 146 mg/dL 74-106 H Performed by certified business machine operator at [facility] [id number] 17:56:00* Test Item Value Reference Range Interpretation Comments GLUBED (test code = GLUBED) 128 mg/dL 74-106 H Performed by certified business machine operator at [facility] [id number] 12:40:00* Test Item Value Reference Range Interpretation Comments GLUBED (test code = GLUBED) 186 mg/dL 74-106 H Performed by certified business machine operator at [facility] - XR CHEST 1 [id number] 10:06:00 FAX: Linda Stephens MD [phone] [place]: B St: [facility] FAX: Dayo Valadez MD [phone] Name: TAY HERNANDEZ [facility] : 1950 Age/S: 68/F Delfina Riley Unit #: [id number] Loc: V.3031 [place] [address] Phys: Damian Lewis MD Acct: [id number] Dis Date: Status: ADM IN PHONE #: [phone] Exam Date: 08/31/2018 0947 FAX #: [phone] Reason: HD CATH EXAMS: CPT CODE: [id number] XR CHEST 1 V 13032 HISTORY: HD catheter placement. COMPARISON: September 15, 2017. Right jugular catheter with the tip projected over the SVC. No pneumothorax. Dependent changes. No acute infiltrates, effusion or congestion. Cardiomegaly. IMPRESSION: No pneumothorax after right jugular catheter placement with the tip projected over the SVC. at 1006 Reported and signed by: Lawson Castro M.D. CC: Linda Vazquez MD; Dayo Valadez MD Technologist: Joe PERALTA(R) Trnscrd Date/Time/By: 08/31/2018 (1006) : By: Luis A.TH4 Orig Print D/T: S: 0 08/31/2018 (1009) PAGE 1 Signed Re port [id number] 08:44:00* Test Item Value Reference Range Interpretation Comments GLUBED (test code = GLUBED) 105 mg/dL 74-106 N Performed by certified business machine operator at [facility] BASIC METABOLIC [id number] 05:52:00* Test Item Value Reference Range Interpretation Comments SODIUM (test code = NA) 144 mmol/L 136-145 N POTASSIUM (test code = K) 3.8 mmol/L 3.5-5.1 N CHLORIDE (test code = CL) 114.0 mmol/L 98-107 H CARBON DIOXIDE (test code = CO2) 24.0 mmol/L 21-32 N ANION GAP (test code = GAP) 9.8 10-20 L GLUCOSE (test code = GLU) 104 mg/dL 74-106 N BLOOD UREA NITROGEN (test code = BUN) 41 mg/dL 7-18 H GLOMERULAR FILTRATION RATE (test code = GFR) 11 mL/min >=60 Estimated GFR by using Modified MDRD formula.Chronic kidney disease is defined as either kidney damageor GFR <60 mL/min/1.73 m2 for >3 months. CREATININE (test code = CREAT) 4.00 mg/dL 0.55-1.02 H Note change in reference range due to change in reagent. BUN/CREATININE RATIO (test code = BUN/CREA) 10.3 10-20 N CALCIUM (test code = CA) 8.4 mg/dL 8.5-10.1 L [id number] 05:52:00* Test Item Value Reference Range Interpretation Comments PHOSPHORUS (test code = PHOS) 4.4 mg/dL 2.5-4.9 N [id number] 05:52:00* Test Item Value Reference Range Interpretation Comments MAGNESIUM (test code = MAG) 2.1 mg/dL 1.8-2.4 N BASIC METABOLIC [id number] 05:50:00* Test Item Value Reference Range Interpretation Comments SODIUM (test code = NA) 144 mmol/L 136-145 N POTASSIUM (test code = K) 3.8 mmol/L 3.5-5.1 N CHLORIDE (test code = CL) 114.0 mmol/L 98-107 H CARBON DIOXIDE (test code = CO2) mmol/L 21-32 ANION GAP (test code = GAP) 10-20 GLUCOSE (test code = GLU) mg/dL 74-106 BLOOD UREA NITROGEN (test code = BUN) mg/dL 7-18 GLOMERULAR FILTRATION RATE (test code = GFR) mL/min >=60 CREATININE (test code = CREAT) mg/dL 0.55-1.02 BUN/CREATININE RATIO (test code = BUN/CREA) 10-20 CALCIUM (test code = CA) 8.4 mg/dL 8.5-10.1 L [id number] 05:50:00* Test Item Value Reference Range Interpretation Comments PHOSPHORUS (test code = PHOS) mg/dL 2.5-4.9 [id number] 05:50:00* Test Item Value Reference Range Interpretation Comments MAGNESIUM (test code = MAG) mg/dL 1.8-2.4 CBC W/O [id number] 05:39:00* Test Item Value Reference Range Interpretation Comments WHITE BLOOD CELL (test code = WBC) 7.6 K/mm3 4.5-12.5 N RED BLOOD CELL (test code = RBC) 3.25 mill/mm3 3.7-5.2 L HEMOGLOBIN (test code = HGB) 9.4 gram/dL 11.5-15.5 L HEMATOCRIT (test code = HCT) 31.5 % 36.0-46.0 L MEAN CELL VOLUME (test code = MCV) 96.9 fL 80-98 N MEAN CELL HGB (test code = MCH) 28.9 picogram 27.0-33.0 N MEAN CELL HGB CONCETRATION (test code = MCHC) 29.8 gram/dL 33.0-36. 0 L RED CELL DISTRIBUTION WIDTH (test code = RDW) 14.0 % 11.6-16. 2 N PLATELET COUNT (test code = PLT) 267 K/mm3 150-450 N MEAN PLATELET VOLUME (test code = MPV) 9.8 fL 6.7-11.0 N [id number] 00:30:00* Test Item Value Reference Range Interpretation Comments GLUBED (test code = GLUBED) 180 mg/dL 74-106 H Performed by certified business machine operator at [facility] PROTHROMBIN [id number] 18:53:00* Test Item Value Reference Range Interpretation Comments PROTHROMBIN TIME PATIENT (test code = PTP) 11.4 seconds 9.0-14.0 N INTERNATIONAL NORMAL RATIO (test code = INR) 1.0 0.8-1.2 N The therapeutic range for oral anticoagulant therapy formost indications is an international normalized ratio (INR)of between 2.0 and 3.0. The recommended therapeutic INRrange for various clinical situations is listed below: Clinical Situation INR range Pulmonary e mbolism treatment (2.0-3.0)Venous thrombosis treatmentVenous thrombosis prophylaxis (high risk surgery)Prevention of systemic embolism from: Acute myocardial infarction Valvular heart disease Atrial fibrillation Mechanical prosthetic heart valves (2.5-3.5) IS PATIENT ON ANTICOAGULANTS? NTHROMBOPLASTIN TIME [id number] 18:53:00* Test Item Value Reference Range Interpretation Comments THROMBOPLASTIN TIME PARTIAL (test code = PTT) 29.8 seconds 25.0-36. 5 N IS PATIENT ON ANTICOAGULANTS? [id number] 17:41:00* Test Item Value Reference Range Interpretation Comments GLUBED (test code = GLUBED) 103 mg/dL 74-106 N Performed by certified business machine operator at [facility] [id number] 17:41:00* Test Item Value Reference Range Interpretation Comments GLUBED (test code = GLUBED) 132 mg/dL 74-106 H Performed by certified business machine operator at [facility] AG HEPAT B [id number] 16:41:00* Test Item Value Reference Range Interpretation Comments AG HEPAT B SURF (test code = HBSAG) Nonreactive Index Nonreactive [id number] 08:57:00* Test Item Value Reference Range Interpretation Comments GLUBED (test code = GLUBED) 76 mg/dL 74-106 N Performed by certified business machine operator at [facility] BASIC METABOLIC [id number] 06:09:00* Test Item Value Reference Range Interpretation Comments SODIUM (test code = NA) 145 mmol/L 136-145 N POTASSIUM (test code = K) 3.7 mmol/L 3.5-5.1 N CHLORIDE (test code = CL) 112.0 mmol/L 98-107 H CARBON DIOXIDE (test code = CO2) 25.0 mmol/L 21-32 N ANION GAP (test code = GAP) 11.7 10-20 N GLUCOSE (test code = GLU) 62 mg/dL 74-106 L BLOOD UREA NITROGEN (test code = BUN) 48 mg/dL 7-18 H GLOMERULAR FILTRATION RATE (test code = GFR) 10 mL/min >=60 Estimated GFR by using Modified MDRD formula.Chronic kidney disease is defined as either kidney damageor GFR <60 mL/min/1.73 m2 for >3 months. CREATININE (test code = CREAT) 4.30 mg/dL 0.55-1.02 H Note change in reference range due to change in reagent. BUN/CREATININE RATIO (test code = BUN/CREA) 11.2 10-20 N CALCIUM (test code = CA) 8.2 mg/dL 8.5-10.1 L [id number] 06:09:00* Test Item Value Reference Range Interpretation Comments PHOSPHORUS (test code = PHOS) 4.3 mg/dL 2.5-4.9 N [id number] 06:09:00* Test Item Value Reference Range Interpretation Comments MAGNESIUM (test code = MAG) 2.1 mg/dL 1.8-2.4 N CBC W/O [id number] 05:47:00* Test Item Value Reference Range Interpretation Comments WHITE BLOOD CELL (test code = WBC) 7.5 K/mm3 4.5-12.5 N RED BLOOD CELL (test code = RBC) 3.14 mill/mm3 3.7-5.2 L HEMOGLOBIN (test code = HGB) 9.0 gram/dL 11.5-15.5 L HEMATOCRIT (test code = HCT) 30.0 % 36.0-46.0 L MEAN CELL VOLUME (test code = MCV) 95.5 fL 80-98 N MEAN CELL HGB (test code = MCH) 28.7 picogram 27.0-33.0 N MEAN CELL HGB CONCETRATION (test code = MCHC) 30.0 gram/dL 33.0-36. 0 L RED CELL DISTRIBUTION WIDTH (test code = RDW) 13.9 % 11.6-16. 2 N PLATELET COUNT (test code = PLT) 269 K/mm3 150-450 N MEAN PLATELET VOLUME (test code = MPV) 10.0 fL 6.7-11.0 N [id number] 23:10:00* Test Item Value Reference Range Interpretation Comments GLUBED (test code = GLUBED) 84 mg/dL 74-106 N Performed by certified business machine operator at [facility] [id number] 22:13:00* Test Item Value Reference Range Interpretation Comments AMYLASE (test code = ALEC) 92 Unit/L 25-115 N SPECIMEN COMMENTS: add onSPECIMEN COMMENTS: add on [id number] 22:13:00* Test Item Value Reference Range Interpretation Comments LIPASE (test code = LIP) 355 U/L 73.0-393.0 N SPECIMEN COMMENTS: add onSPECIMEN COMMENTS: add on [id number] 21:50:00* Test Item Value Reference Range Interpretation Comments GLUBED (test code = GLUBED) 54 mg/dL 74-106 L Performed by certified business machine operator at [facility] COMPREHENSIVE METABOLIC [id number] 19:18:00* Test Item Value Reference Range Interpretation Comments SODIUM (test code = NA) 142 mmol/L 136-145 N POTASSIUM (test code = K) 3.6 mmol/L 3.5-5.1 N CHLORIDE (test code = CL) 108.0 mmol/L 98-107 H CARBON DIOXIDE (test code = CO2) 26.0 mmol/L 21-32 N ANION GAP (test code = GAP) 11.6 10-20 N GLUCOSE (test code = GLU) 270 mg/dL 74-106 H BLOOD UREA NITROGEN (test code = BUN) 53 mg/dL 7-18 H GLOMERULAR FILTRATION RATE (test code = GFR) 9 mL/min >=60 Estimated GFR by using Modified MDRD formula.Chronic kidney disease is defined as either kidney damageor GFR <60 mL/min/1.73 m2 for >3 months. CREATININE (test code = CREAT) 4.80 mg/dL 0.55-1.02 H Note change in reference range due to change in reagent. BUN/CREATININE RATIO (test code = BUN/CREA) 11.0 10-20 N TOTAL PROTEIN (test code = PROT) 7.1 gram/dL 6.4-8.2 N ALBUMIN (test code = ALB) 3.5 g/dL 3.4-5.0 N GLOBULIN (test code = GLOB) 3.6 gram/dL 2.7-4.2 N ALBUMIN/GLOBULIN RATIO (test code = A/G) 1.0 0.75-1.50 N CALCIUM (test code = CA) 8.2 mg/dL 8.5-10.1 L BILIRUBIN TOTAL (test code = BILT) 0.70 mg/dL 0.0-1.0 N SGOT/AST (test code = AST) 19 IUnit/L 15-37 N SGPT/ALT (test code = ALT) 20 IUnit/L 12-78 N ALKALINE PHOSPHATASE TOTAL (test code = ALKP) 103 IUnit/L 45-117 N Note change in reference range due to change in reagent. PROTHROMBIN [id number] 17:45:00* Test Item Value Reference Range Interpretation Comments PROTHROMBIN TIME PATIENT (test code = PTP) 11.4 seconds 9.0-14.0 N INTERNATIONAL NORMAL RATIO (test code = INR) 1.0 0.8-1.2 N The therapeutic range for oral anticoagulant therapy formost indications is an international normalized ratio (INR)of between 2.0 and 3.0. The recommended therapeutic INRrange for various clinical situations is listed below: Clinical Situation INR range Pulmonary e mbolism treatment (2.0-3.0)Venous thrombosis treatmentVenous thrombosis prophylaxis (high risk surgery)Prevention of systemic embolism from: Acute myocardial infarction Valvular heart disease Atrial fibrillation Mechanical prosthetic heart valves (2.5-3.5) IS PATIENT ON ANTICOAGULANTS? NCBC W/AUTO [id number] 17:27:00* Test Item Value Reference Range Interpretation Comments WHITE BLOOD CELL (test code = WBC) 6.1 K/mm3 4.5-12.5 N RED BLOOD CELL (test code = RBC) 3.22 mill/mm3 3.7-5.2 L HEMOGLOBIN (test code = HGB) 9.4 gram/dL 11.5-15.5 L HEMATOCRIT (test code = HCT) 30.3 % 36.0-46.0 L MEAN CELL VOLUME (test code = MCV) 94.1 fL 80-98 N MEAN CELL HGB (test code = MCH) 29.2 picogram 27.0-33.0 N MEAN CELL HGB CONCETRATION (test code = MCHC) 31.0 gram/dL 33.0-36. 0 L RED CELL DISTRIBUTION WIDTH (test code = RDW) 13.7 % 11.6-16. 2 N RED CELL DISTRIBUTION WIDTH SD (test code = RDW-SD) 47.2 fL 37 .0-51.0 N PLATELET COUNT (test code = PLT) 260 K/mm3 150-450 N MEAN PLATELET VOLUME (test code = MPV) 10.0 fL 6.7-11.0 N NEUTROPHIL % (test code = NT%) 62.7 % 39.0-69.0 N IMMATURE GRANULOCYTE % (test code = IG%) 1.1 % 0.0-5.0 N LYMPHOCYTE % (test code = LY%) 24.0 % 25.0-55.0 L MONOCYTE % (test code = MO%) 5.9 % 0.0-10.0 N EOSINOPHIL % (test code = EO%) 5.5 % 0.0-5.0 H BASOPHIL % (test code = BA%) 0.8 % 0.0-1.0 N NUCLEATED RBC % (test code = NRBC%) 0.0 % 0-0 N NEUTROPHIL # (test code = NT#) 3.84 K/mm3 1.8-7.7 N IMMATURE GRANULOCYTE # (test code = IG#) 0.07 x10 3/uL 0-0.03 H LYMPHOCYTE # (test code = LY#) 1.47 K/mm3 1.0-5.0 N MONOCYTE # (test code = MO#) 0.36 K/mm3 0-0.8 N EOSINOPHIL # (test code = EO#) 0.34 K/mm3 0.0-0.5 N BASOPHIL # (test code = BA#) 0.05 K/mm3 0.0-0.2 N NUCLEATED RBC # (test code = NRBC#) 0.00 K/mm3 0.0-0.1 N MANUAL DIFF REQUIRED (test code = MDIFF) NO [id number] 17:14:00* Test Item Value Reference Range Interpretation Comments GLUBED (test code = GLUBED) 242 mg/dL 74-106 H Performed by certified business machine operator at [facility] U/S, ABDOMINAL, [id number] 11:50:00Reason for Exam:->pre transplant evaluationFINAL REPORT INDICATION: 77-year-old female with chronic kidney disease. Evaluation before renal transplant. TECHNIQUE: Abdominal ultrasound complete. COMPARISON: None. FINDINGS:Abdominal aorta is unremarkable.Pancreas to the extent visualized is unremarkable.Visualized IVC unremarkable. Liver contour, size, and echogenicity are unremarkable.No liver mass is demonstrated.Main portal vein measures 0.9 cm in diameter.Transverse diameter gallbladder is 3.1 cm.No gallstones, gallbladder wall thickening, or fluid around the gallbladder.Common bile duct is normal in diameter measuring 0.4 cm. Spleen is normal in size measuring 11 x 4 cm. Both kidneys are small and cortically thinned.Right kidney measures 6.9 x 3.8 x 3.6 cm.Left kidney measures 7.6 x 4.2 x 3.8 cm.No renal mass is demonstrated.1.2 cm cyst in the interpole right kidney noted.1.5 cm cyst in the lower pole left kidney noted. IMPRESSION: Small and cortically thinned kidneys, in keeping with chronic kidney disease. No abnormality of the liver or biliary system demonstrated. Signed: Camilla Sage MDReport Verified Date/Time: 2018 11:50:33 Reading Location: [address] Ultrasound Reading Room GLOBIN [id number] 11:31:00* Test Item Value Reference Range Interpretation Comments HEMOGLOBIN A1C (BEAKER) (test code = 368) 7.1 % 4.3-6.1 H OCCULT BLOOD, [id number] 10:39:00* Test Item Value Reference Range Interpretation Comments FECAL OCCULT BLOOD (BEAKER) (test code = 618) Negative Negative OCCULT BLOOD, [id number] 10:39:00* Test Item Value Reference Range Interpretation Comments FECAL OCCULT BLOOD (BEAKER) (test code = 618) Negative Negative LIPID [id number] 10:19:00* Test Item Value Reference Range Interpretation Comments TRIGLYCERIDES (BEAKER) (test code = 540) 89 mg/dL CHOLESTEROL (BEAKER) (test code = 631) 123 mg/dL HDL CHOLESTEROL (BEAKER) (test code = 976) 33 mg/dL LDL CHOLESTEROL CALCULATED (BEAKER) (test code = 633) 72 mg/dL Triglyceride Reference Range: Low Risk <150 Borderline 150-199 High Risk 200-499 Very High Risk >=500Cholesterol Reference Range: Low Risk <200 Borderline 200-239 High Risk >240HDL Cholesterol Reference Range: Low Risk >=60 High Risk <40LDL Cholesterol Reference Range: Optimal <100 Near Optimal 100-129 Borderline 130-159 High 160-189 Very High >=190 PROTHROMBIN TIME/[id number] 09:55:00* Test Item Value Reference Range Interpretation Comments PROTIME (BEAKER) (test code = 759) 15.4 seconds 11.7-14.7 H INR (BEAKER) (test code = 370) 1.2 <=5.9 RECOMMENDED COUMADIN/WARFARIN INR THERAPY RANGESSTANDARD DOSE: 2.0 - 3.0 Inclu alden: PROPHYLAXIS for venous thrombosis, systemic embolization; TREATMENT for shanna ous thrombosis and/or pulmonary embolus.HIGH RISK: Target INR is 2.5-3.5 for pat ients with mechanical heart valves.T SPOT [id number] 08:48:00* Test Item Value Reference Range Interpretation Comments T-SPOT TB (BEAKER) (test code = 1683) Negative NEG CONTROL SPOT COUNT (BEAKER) (test code = 1684) 0 PANEL A SPOT (BEAKER) (test code = 1685) 0 PANEL B SPOT (BEAKER) (test code = 1686) [address] (BEAKER) (test code = 1687) 0 SCAN RESULT (test code = 5820401) URINE [id number] 15:02:00* Test Item Value Reference Range Interpretation Comments CULTURE (BEAKER) (test code = 1095) ESCHERICHIA COLI A 80-89,000 col/mL Escherichia coli Amikacin (test code = 1) S Ampicillin + Sulbactam (test code = 6) R Aztreonam (test code = 32) S Cefepime (test code = 51) S Cefoxitin (test code = 68) S Ceftazidime (test code = 27) S Ceftriaxone (test code = 52) S Ertapenem (test code = 38) S Gentamicin (test code = 18) S Levofloxacin (test code = 22) S Meropenem (test code = 34) S Nitrofurantoin (test code = 23) S Piperacillin + Tazobactam (test code = 29) S Tetracycline (test code = 2) R Tobramycin (test code = 25) S Trimethoprim + Sulfamethoxazole (test code = 47) R >100,000 col/mL skin [id number] 13:51:00* Test Item Value Reference Range Interpretation Comments RPR SCREEN ([employer]NA) (test code = 420) Nonreactive Nonreactive HEMOGLOBIN [id number] 12:45:00* Test Item Value Reference Range Interpretation Comments HEMOGLOBIN A1C (KARRIE) (test code = 368) 6.8 % 4.3-6.1 H VARICELLA ZOSTER ANTIBODY, [id number] 11:38:00* Test Item Value Reference Range Interpretation Comments VARICELLA ZOSTER IGG (AL) ([employer]NA) (test code = 3197) > VARICELLA ZOSTER RESULT INTERPRETATIONS: <=0.8 Al Nonreactive: Presumed non-immune to VZV 0.9-1.0 Al Equivocal >=1.1 Al Reactive: Presumed immune to VZVCYTOMEGALOVIRUS ANTIBODY, [id number] 11:38:00* Test Item Value Reference Range Interpretation Comments CYTOMEGALOVIRUS, IGG ([employer]) (test code = 3429) Positive Negat ric, Equivocal A CMV IgG Result Interpretation: </= 0.8 Al Negative 0.9-1.0 Al Equivocal > /=1.1 Al PositiveCYTOMEGALOVIRUS ANTIBODY, [id number] 11:38:00* Test Item Value Reference Range Interpretation Comments CYTOMEGALOVIRUS IGM ANTIBODY ([employer]AKER) (test code = 3437) Neg ative Negative, Equivocal CMV IgM Result Interpretation: </= 0.8 Al Negative 0.9-1.0 Al Equivocal > /= 1.1 Al PositiveEBV ANTIBODY, [id number] 11:38:00* Test Item Value Reference Range Interpretation Comments MAKENZIE SPEAR VIRAL CAPSID ANTIGEN IGG ([employer] TechnologiesAKER) (test code = 3415) Positive Negative, Equivocal A Makenzie Spear Viral Capsid Antigen IgG Result Interpretation: </= 0.8 Al Negative 0.9-1.0 Al Equivocal >/= 1.1 Al PositiveEBV ANTIBODY, [id number] 11:38:00* Test Item Value Reference Range Interpretation Comments MAKENZIE SPEAR VIRAL CAPSID ANTIGEN IGM ([employer]) (test code = 3418) Negative Negative, Equivocal Makenzie Spear Viral Capsid Antigen IgM Result Interpretation: </= 0.8 Al Negative 0.9-1.0 Al Equivocal >/= 1.1 Al PositivePTH, [id number] 10:42:00* Test Item Value Reference Range Interpretation Comments PARATHYROID HORMONE INTACT (BEAKER) (test code = 577) 677.5 pg/mL 8.5-72.5 H HEPATITIS B SURFACE [id number] 09:49:00* Test Item Value Reference Range Interpretation Comments HEPATITIS B SURFACE ANTIBODY (BEAKER) (test code = 647) < mIU/mL <8.0 COMPREHENSIVE METABOLIC [id number] 09:48:00* Test Item Value Reference Range Interpretation Comments TOTAL PROTEIN (BEAKER) (test code = 770) 7.1 gm/dL 6.0-8.3 ALBUMIN (BEAKER) (test code = 1145) 3.6 g/dL 3.5-5.0 ALKALINE PHOSPHATASE (BEAKER) (test code = 346) 160 U/L 40-150 H BILIRUBIN TOTAL (BEAKER) (test code = 377) 0.6 mg/dL 0.2-1.2 SODIUM (BEAKER) (test code = 381) 140 meq/L 136-145 POTASSIUM (BEAKER) (test code = 379) 3.8 meq/L 3.5-5.1 CHLORIDE (BEAKER) (test code = 382) 106 meq/L 98-107 CO2 (BEAKER) (test code = 355) 25 meq/L 22-29 BLOOD UREA NITROGEN (BEAKER) (test code = 354) 59 mg/dL 7-21 H CREATININE (BEAKER) (test code = 358) 4.40 mg/dL 0.57-1.25 H GLUCOSE RANDOM (BEAKER) (test code = 652) 167 mg/dL 70-105 H CALCIUM (BEAKER) (test code = 697) 8.4 mg/dL 8.4-10.2 AST (SGOT) (BEAKER) (test code = 353) 29 U/L 5-34 ALT (SGPT) (BEAKER) (test code = 347) 20 U/L 6-55 EGFR (BEAKER) (test code = 1092) 10 mL/min/1.73 sq m ESTIMATED GFR IS NOT ACCURATE CREATININE CLEARANCE IN PREDICTING GLOMERULAR FILTRATION RATE. ESTIMATED GFR IS NOT APPLICABLE FOR DIALYSIS PATIENTS. URINALYSIS W/ [id number] 09:41:00* Test Item Value Reference Range Interpretation Comments COLOR (BEAKER) (test code = 470) Yellow CLARITY (BEAKER) (test code = 469) Hazy SPECIFIC GRAVITY UA (BEAKER) (test code = 468) 1.010 1.001-1 .035 PH UA (BEAKER) (test code = 467) 6.0 5.0-8.0 PROTEIN UA (BEAKER) (test code = 464) 200 mg/dL Negative A GLUCOSE UA (BEAKER) (test code = 365) Negative Negative KETONES UA (BEAKER) (test code = 371) Negative Negative BILIRUBIN UA (BEAKER) (test code = 462) Negative Negative BLOOD UA (BEAKER) (test code = 461) Negative Negative NITRITE UA (BEAKER) (test code = 465) Negative Negative LEUKOCYTE ESTERASE UA (BEAKER) (test code = 466) Large Negat ric A UROBILINOGEN UA (BEAKER) (test code = 463) 0.2 mg/dL 0.2-1.0 RBC UA (BEAKER) (test code = 519) 0 /HPF WBC UA (BEAKER) (test code = 520) 295 /HPF BACTERIA (BEAKER) (test code = 517) Few SQUAMOUS EPITHELIAL (BEAKER) (test code = 516) 1 /HPF SOURCE(BEAKER) (test code = 2795) HEPATITIS B SURFACE [id number] 09:41:00* Test Item Value Reference Range Interpretation Comments HEPATITIS B SURFACE ANTIGEN (2) (BEAKER) (test code = 2585) Nonreactive Nonreactive HEPATITIS B CORE ANTIBODY, [id number] 09:41:00* Test Item Value Reference Range Interpretation Comments HEPATITIS B CORE IGM ANTIBODY (BEAKER) (test code = 645) Non reactive Nonreactive HEPATITIS C [id number] 09:41:00* Test Item Value Reference Range Interpretation Comments HEPATITIS C ANTIBODY (BEAKER) (test code = 367) Nonreactive Nonrea ctive HIV-1 ANTIGEN WITH HIV-1/2 [id number] 09:41:00* Test Item Value Reference Range Interpretation Comments HIV-1 ANTIGEN WITH HIV 1\T\2 ANTIBODY (2) (BEAKER) (te st code = 2586) Nonreactive Nonreactive URIC [id number] 09:22:00* Test Item Value Reference Range Interpretation Comments URIC ACID (BEAKER) (test code = 773) 5.9 mg/dL 2.6-7.2 [id number] 09:22:00* Test Item Value Reference Range Interpretation Comments PHOSPHORUS (BEAKER) (test code = 604) 4.2 mg/dL 2.3-4.7 GAMMA GLUTAMYL TRANSFERASE (GGT)2018-03-28 09:22:00* Test Item Value Reference Range Interpretation Comments GAMMA GLUTAMYL TRANSFERASE (BEAKER) (test code = 364) 61 U/L 9-64 LACTATE DEHYDROGENASE (LDH)2018-03-28 09:22:00* Test Item Value Reference Range Interpretation Comments LACTATE DEHYDROGENASE (BEAKER) (test code = 635) 179 U/L 125-2 20 [id number] 09:01:00* Test Item Value Reference Range Interpretation Comments PROTIME (BEAKER) (test code = 759) 14.4 seconds 11.7-14.7 INR (BEAKER) (test code = 370) 1.1 <=5.9 PARTIAL THROMBOPLASTIN TIME (BEAKER) (test code = 760) 30.9 seconds 22.5-36.0 RECOMMENDED COUMADIN/WARFARIN INR THERAPY RANGESSTANDARD DOSE: 2.0 - 3.0 Inclu alden: PROPHYLAXIS for venous thrombosis, systemic embolization; TREATMENT for shanna ous thrombosis and/or pulmonary embolus.HIGH RISK: Target INR is 2.5-3.5 for pat ients with mechanical heart valves.CBC W/PLT COUNT & AUTO [id number] 08:54:00* Test Item Value Reference Range Interpretation Comments WHITE BLOOD CELL COUNT (BEAKER) (test code = 775) 9.6 K/ L 3.5- 10.5 RED BLOOD CELL COUNT (BEAKER) (test code = 761) 3.13 M/ L 3.93-5 .22 L HEMOGLOBIN (BEAKER) (test code = 410) 9.5 GM/DL 11.2-15.7 L HEMATOCRIT (BEAKER) (test code = 411) 29.3 % 34.1-44.9 L MEAN CORPUSCULAR VOLUME (BEAKER) (test code = 753) 93.6 fL 79. 4-94.8 MEAN CORPUSCULAR HEMOGLOBIN (BEAKER) (test code = 751) 30.4 pg 25.6-32.2 MEAN CORPUSCULAR HEMOGLOBIN CONC (BEAKER) (test code = 752) 32.4 GM/DL 32.2-35.5 RED CELL DISTRIBUTION WIDTH (BEAKER) (test code = 412) 14.3 % 11.7-14.4 PLATELET COUNT (BEAKER) (test code = 756) 329 K/CU MM 150-450 MEAN PLATELET VOLUME (BEAKER) (test code = 754) 9.1 fL 9.4-12 .3 L NUCLEATED RED BLOOD CELLS (BEAKER) (test code = 413) 0 /100 WBC 0 -0 NEUTROPHILS RELATIVE PERCENT (BEAKER) (test code = 429) 83 % LYMPHOCYTES RELATIVE PERCENT (BEAKER) (test code = 430) 11 % MONOCYTES RELATIVE PERCENT (BEAKER) (test code = 431) 4 % EOSINOPHILS RELATIVE PERCENT (BEAKER) (test code = 432) 2 % BASOPHILS RELATIVE PERCENT (BEAKER) (test code = 437) 1 % NEUTROPHILS ABSOLUTE COUNT (BEAKER) (test code = 670) 8.03 K/ L 1.56-6.13 H LYMPHOCYTES ABSOLUTE COUNT (BEAKER) (test code = 414) 1.04 K/ L 1.18-3.74 L MONOCYTES ABSOLUTE COUNT (BEAKER) (test code = 415) 0.35 K/ L 0. 24-0.36 EOSINOPHILS ABSOLUTE COUNT (BEAKER) (test code = 416) 0.14 K/ L 0.04-0.36 BASOPHILS ABSOLUTE COUNT (BEAKER) (test code = 417) 0.06 K/ L 0. 01-0.08 IMMATURE GRANULOCYTES-RELATIVE PERCENT (BEAKER) (test code = 2801) 0 % 0-1
--- OUTSIDE RECORDS SUMMARY | 2020-01-27 12:41 | XMS REPORT | Clinical Summary ---
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 Active Omeprazole 40 mg Take 1 Cap by 90 Cap 3 capsuleIndications: GERD mouth daily. 1 (gastroesophageal reflux disease) Active ibuprofen (MOTRIN) 800 mg Take 1 Tab by 90 Tab 3 tabletIndications: Pain mouth every 8 1 in joint, ankle and foot, hours as Joint pain needed for Pain. Active ciprofloxacin (CIPRO) 500 Take 1 tablet 14 tablet 0 mg tabletIndications: UTI by mouth 2 4 (Lower Urinary Tract times daily. Infection) Active glyBURIDE-metFORMIN Take 2 360 tablet 4 (GLUCOVANCE) 5-500 mg per tablets by 5 tabletIndications: DM mouth 2 times type 2 (diabetes daily (with mellitus, type 2) meals). Active ergocalciferol (VITAMIN Take 1 12 capsule 1 D2) 50,000 unit capsule by 5 capsuleIndications: mouth weekly. Vitamin D deficiency Active ferrous sulfate (FEOSOL) Take 1 tablet 90 tablet 2 325 mg (65 mg iron) by mouth 5 tabletIndications: Other daily (with iron deficiency anemia breakfast). Active lactulose (CONSTULOSE) 10 Take 30 mL by 946 mL 3 gram/15 mL oral mouth 3 times 6 solutionIndications: Slow daily. transit constipation Active pioglitazone (ACTOS) 30 Take 1 tablet 90 tablet 3 mg tabletIndications: by mouth 6 Type 2 diabetes mellitus daily. with hyperglycemia, without long-term current use of insulin Active BLOOD GLUCOSE METER CHECK BLOOD 1 Kit 0 monitoring GLUCOSE TWICE 6 kitIndications: Type 2 WEEKLY. diabetes mellitus with hyperglycemia, without long-term current use of insulin Active blood glucose (PRECISION 1 Each by 1 Each 3 1 XTRA TEST STRIPS) test MISCELLANEOUS 6 stripsIndications: Type 2 route 2 times diabetes mellitus with weekly. hyperglycemia, without long-term current use of insulin Active lancets 30 gauge 100 Each by 100 Each 11 MiscIndications: Type 2 Misc.(Non-Kojo 6 diabetes mellitus with g; Combo hyperglycemia, without Route) route long-term current use of 2 times insulin weekly. Active amLODIPine (NORVASC) 10 Take 1 tablet 90 tablet 3 mg tabletIndications: by mouth 7 Essential hypertension daily. Active Glipizide-Metformin 5-500 Take 2 360 tablet 3 mg per tabletIndications: tablets by 7 Type 2 diabetes mellitus mouth 2 times with hyperglycemia, daily (before without long-term current meals). use of insulin Active lisinopril (ZESTRIL) 40 Take 1 tablet 90 tablet 3 mg tabletIndications: by mouth 7 Essential hypertension daily. with goal blood pressure less than 130/85 Active gabapentin (NEURONTIN) Take 1 tablet 90 tablet 2 0 600 mg tabletIndications: by mouth 3 7 Neuropathic pain syndrome times daily. (non-herpetic) Active NIFEdipine (PROCARDIA XL) Take 1 tablet 90 tablet 3 90 mg extended release by mouth 7 tabletIndications: daily. Essential hypertension with goal blood pressure less than 130/85 Active traMADol (ULTRAM) 50 mg Take 1 tablet 90 tablet 1 tabletIndications: by mouth 7 Arthralgia of both lower every 8 hours legs as needed for Pain. Active metoprolol tartrate Take 1 tablet 180 tablet 3 (LOPRESSOR) 50 mg by mouth 2 7 tabletIndications: times daily. Essential hypertension Active hydrALAZINE (APRESOLINE) Take 1 tablet 60 tablet 3 25 mg tabletIndications: by mouth 2 7 Essential hypertension times daily. Active ondansetron (ZOFRAN) 4 mg Take 1 tablet 45 tablet 0 tabletIndications: Nausea by mouth 7 every 8 hours as needed for Nausea. Active amLODIPine (NORVASC) 10 Take 1 tablet 90 tablet 2 mg tabletIndications: by mouth 7 Essential hypertension daily. Active ferrous sulfate (FEOSOL) Take 1 tablet 90 tablet 3 325 mg (65 mg iron) by mouth 8 tabletIndications: Iron daily (with deficiency anemia, breakfast). unspecified iron deficiency anemia type Active naproxen (NAPROSYN) 500 Take 1 tablet 60 tablet 3 mg tabletIndications: by mouth 2 8 Arthralgia, unspecified times daily joint (with meals). Active NIFEdipine (PROCARDIA XL) Take 1 tablet 180 tablet 3 30 mg extended release by mouth 2 8 tabletIndications: times daily Essential hypertension NEW DOSING TWICE DAILY. Active tiZANidine (ZANAFLEX) 4 Take 1 tablet 30 tablet 0 mg tabletIndications: by mouth 8 Spasm of muscle nightly at bedtime as needed for Muscle Spasms. Active lactulose (CONSTULOSE) 10 Take 30 mL by 946 mL 4 gram/15 mL oral mouth 3 times 8 solutionIndications: Slow daily. transit constipation Active triamcinolone (KENALOG) Apply to 80 g 3 0.025 % topical affected area 8 creamIndications: Rash 3 times daily. Active calcitriol (ROCALTROL) Take 1 90 capsule 2 0.25 mcg capsule by 8 capsuleIndications: mouth daily. Hypovitaminosis D Active hydrALAZINE (APRESOLINE) Take 1 tablet 270 tablet 3 100 mg tabletIndications: by mouth 3 8 Essential hypertension times daily. with goal blood pressure less than 130/85 Active furosemide (LASIX) 40 mg Take 1 tablet 180 tablet 3 tabletIndications: Acute by mouth 2 9 renal failure with acute times daily. tubular necrosis superimposed on stage 4 chronic kidney disease, Acute renal failure with acute tubular necrosis superimposed on stage 5 chronic kidney disease, not on chronic dialysis Active amitriptyline (ELAVIL) 25 Take 1 tablet 90 tablet 3 mg tabletIndications: by mouth at 9 Insomnia, unspecified bedtime type, Neuropathic pain nightly at syndrome (non-herpetic) bedtime (1 tablet = 25 mg). Active allopurinol (ZYLOPRIM) Take 1 tablet 90 tablet 3 1 100 mg tabletIndications: by mouth 9 Idiopathic gout, daily. unspecified chronicity, unspecified site Active atorvastatin (LIPITOR) 40 Take 1 tablet 90 tablet 3 mg tabletIndications: by mouth at 9 Mixed hyperlipidemia bedtime nightly. Active walker MiscIndications: by 1 Each 0 Type 2 diabetes mellitus Misc.(Non-Kojo 9 with hyperglycemia, g; Combo without long-term current Route) route use of insulin, Walker with Idiopathic gout, seat and unspecified chronicity, wheels along unspecified site, with hand Weakness of both lower brakes. extremities, Fall, subsequent encounter Active furosemide (LASIX) 40 mg Take 1 tablet 180 tablet 3 tabletIndications: by mouth 2 0 Essential hypertension times daily. with goal blood pressure less than 130/85, Localized edema Active carvediloL (COREG) 25 mg Take 1 tablet 180 tablet 3 tabletIndications: by mouth 2 0 Essential hypertension times daily with goal blood pressure (with meals). less than 130/85 Active glipiZIDE (GLUCOTROL) 10 Take 1 tablet 180 tablet 4 mg tabletIndications: by mouth 2 0 Type 2 diabetes mellitus times daily with hyperglycemia, (before without long-term current meals). use of insulin Active metFORMIN (GLUCOPHAGE XR) Take 1 tablet 180 tablet 2 500 mg ER extended by mouth 2 0 release times daily. tabletIndications: Type 2 diabetes mellitus with hyperglycemia, without long-term current use of insulin Active naproxen (NAPROSYN) 500 Take 1 tablet 60 tablet 2 mg tabletIndications: by mouth 2 0 Bilateral low back pain times daily with sciatica, sciatica (with meals). laterality unspecified, unspecified chronicity Active gabapentin (NEURONTIN) Take 1 90 capsule 2 100 mg capsule by 0 capsuleIndications: mouth 3 times Neuropathy daily. 12/03/2019 Discontinued (Reorder) naproxen (NAPROSYN) 500 Take 1 tablet 60 tablet 0 mg tabletIndications: by mouth 2 7 Bilateral low back pain times daily with sciatica, sciatica (with meals). laterality unspecified, unspecified chronicity 02/25/2019 Discontinued (Reorder) atorvastatin (LIPITOR) 40 Take 1 tablet 90 tablet 3 mg tabletIndications: by mouth at 8 Mixed hyperlipidemia bedtime nightly. 02/25/2019 Discontinued (Reorder) amitriptyline (ELAVIL) 25 Take 1 tablet 90 tablet 3 mg tabletIndications: by mouth at 8 Insomnia, unspecified bedtime type, Neuropathic pain nightly at syndrome (non-herpetic) bedtime (1 tablet = 25 mg). 07/19/2019 Discontinued (Reorder) furosemide (LASIX) 40 mg Take 1 tablet 180 tablet 2 tabletIndications: by mouth 2 8 Essential hypertension times daily. with goal blood pressure less than 130/85, Localized edema 07/19/2019 Discontinued (Alternate ther apy) carvedilol (COREG) 12.5 Take 1 tablet 180 tablet 3 mg tabletIndications: by mouth 2 8 Essential hypertension times daily with goal blood pressure (with meals). less than 130/85 02/25/2019 Discontinued (Reorder) allopurinol (ZYLOPRIM) Take 1 tablet 90 tablet 2 0 100 mg tabletIndications: by mouth 8 Idiopathic gout, daily. unspecified chronicity, unspecified site 02/25/2019 Discontinued (Reorder) furosemide (LASIX) 40 mg Take 1 tablet 180 tablet 2 tabletIndications: Acute by mouth 2 9 renal failure with acute times daily. tubular necrosis superimposed on stage 4 chronic kidney disease, Acute renal failure with acute tubular necrosis superimposed on stage 5 chronic kidney disease, not on chronic dialysis 02/25/2019 Discontinued (Reorder) glipiZIDE (GLUCOTROL) 10 Take 1 tablet 60 tablet 4 mg tabletIndications: by mouth 2 9 Type 2 diabetes mellitus times daily with hyperglycemia, (before without long-term current meals). use of insulin 08/24/2019 tropicamide (MYDRIACYL) Instill 1 15 mL 0 0.5 % ophthalmic Drop in each 9 solutionIndications: Type eye once as 2 diabetes mellitus with needed for up hyperglycemia, without to 1 dose long-term current use of (for poor insulin retina scan image). 10/02/2019 Discontinued (Reorder) glipiZIDE (GLUCOTROL) 10 Take 1 tablet 60 tablet 4 mg tabletIndications: by mouth 2 9 Type 2 diabetes mellitus times daily with hyperglycemia, (before without long-term current meals). use of insulin Active Problems Problem Noted Date BMI 36.0-36.9,adult 12/30/2014 Dietary surveillance and counseling 12/30/2014 Back pain with radiation 04/09/2012 Knee pain 04/09/2012 Neck pain 07/15/2009 Arthralgia of multiple joints 09/03/2008 Diabetes mellitus type II, uncontrolled 03/27/2006 Hypertension Hypertriglyceridemia Insomnia Atrophic vaginitis Encounters Care Team Description Date Type Specialty Moises Jung MD Type 2 diabetes mellitus with hyperglyce mehdi, without long-term current use of insulin (Primary Dx); Bilateral low back pain with sciatica, sciatica laterality unspecified, unspecified chronicity; Neuropathy 12/03/2019 Telephonic Family Practice Encounter Maryuri Lozoya MD NO SHOW ENCOUNTER (Primary Dx) 10/17/2019 Telephonic Ophthalmology Encounter Moises Jung MD Medications 10/02/2019 Refill Family Practice Moises Jung MD Type 2 diabetes mellitus with hyperglyce mehdi, without long-term current use of insulin (Primary Dx); Insomnia, unspecified type; Mixed hyperlipidemia; Essential hypertension with goal blood pressure less than 130/85; Localized edema; Examination of eyes and vision 07/19/2019 Office Visit Family Practice Moises Jung MD 07/19/2019 Orders Only Family Practice Moises Jung MD Type 2 diabetes mellitus with hyperglyce mehdi, without long-term current use of insulin (Primary Dx); Acute renal failure with acute tubular necrosis superimposed on stage 4 chronic kidney disease; Acute renal failure with acute tubular necrosis superimposed on stage 5 chronic kidney disease, not on chronic dialysis; Insomnia, unspecified type; Neuropathic pain syndrome (non-herpetic); Idiopathic gout, unspecified chronicity, unspecified site; Mixed hyperlipidemia; Weakness of both lower extremities; Fall, subsequent encounter; Encounter for vaccination 02/25/2019 Office Visit Family Practice after 01/26/2019 Immunizations Name Administration Dates Next Due Hepatitis B Pedi/Adol 12/26/2017, 11/28/2017 Herpes Zoster Vaccine In 11/28/2017, 06/21/2013 (Def erred: Vaccine Clinic Unavailable - vaccine not a vailable in clinic today) Influenza Vaccine 03/27/2006 Influenza Vaccine, 04/17/2017 (Deferred: Patie nt Refused) Seasonal, Injectable PCV 13 (Pnuemococcal 01/31/2017 Conjugated 13 Valent) PPV 23 Pneumococcal 05/25/2005, 09/05/2001 Polysaccaride Tdap Tetanus, diphtheria, 12/30/2014 acellular pertussis Vaccine Family History Medical History Relation Name Comments Diabetes Mother Relation Name Status Comments Brother Alive Daughter Alive 5 Father Maternal Grandfather Maternal Grandmother Mother Paternal Grandfather Paternal Grandmother Sister Alive Son Alive 2 Social History Date Tobacco Use Types Packs/Day Years Used Never Smoker Smokeless Tobacco: Never Used Tobacco Cessation: Counseling Given: No Drinks/Week oz/Week Comments Alcohol Use No Food Insecurity Answer Date Recorded Within the past 12 months, you worried that your Never kory e 01/23/2018 food would run out before you got money to buy more. Within the past 12 months, the food you bought Never true 01/23/2018 just didn't last and you didn't have mo leroy to get more. Sex Assigned at Date Recorded Not on file Industry Job Start Date Occupation Not on file Not on file Not on file Travel End Travel History Travel Start No recent travel history available. Last Filed Vital Signs Reading Time Taken Comments Vital Sign 146/60 07/19/2019 9:42 AM CANE PILER manual Blood Pressure 89 07/19/2019 9:36 AM CANE PILER Pulse 36.6 C (97.9 F) 07/19/2019 9:36 AM CANE PILER Temperature 19 07/19/2019 9:36 AM CANE PILER Respiratory Rate - - Oxygen Saturation - - Inhaled Oxygen Concentration 78.8 kg (173 lb 11.2 oz) 07/19/2019 9:36 AM CANE PILER Weight 157.9 cm (5' 2.17") 07/19/2019 9:36 AM CANE PILER Height 31.6 07/19/2019 9:36 AM CANE PILER Body Mass Index Plan of Treatment Health Maintenance Due Date Last Done Comments Breast Cancer Scrn 07/24/2019 07/23/2018, (Yearly) 01/01/2015, 06/24/2013, Additional history exists Colorectal Cancer Scrn 08/18/2019 08/17/2018, Annual (FIT/FOBT) Age 51 09/26/2016 to 76 IMM Influenza Seasonal 02/13/2020 03/27/2006Feb to July (>/= 19 yrs) DM Foot Exam (Yearly) 02/26/2020 02/25/2019, 01/23/2018, 09/01/2017, Additional history exists DM Retinal Exam (Yearly) 02/26/2020 02/25/2019, 09/26/2016, 10/05/2015, Additional history exists DM HGBA1C (Yearly) 07/21/2020 07/22/2019, 02/25/2019, 01/01/2018, Additional history exists IMM Pneumococcal Age 66 Completed 01/31/2017, and Up 01/21/2017 Goals Goal Patient Associated Recent Progress Patient-Stat Aut hor Goal Type Problems ed? LOWER BLOOD GLUCOSE Lifestyle No Belkys Banks i, MIXER FOAM RUBBER Reduce pain Lifestyle No Nancy Bui, Scrum Project Manager Eat Healthy Lifestyle Yes Nancy Bui Scrum Project Manager Eat Healthy Lifestyle No Tabitha Kurtz LVN Eat Healthy Lifestyle No Tabitha Kurtz LVN Procedures Comments Procedure Name Priority Date/Time Associated Diag nosis URINALYSIS Routine 07/22/2019 Type 2 diabetes mellitus MICROSCOPIC-REFLEX 1:11 PM CDT with hyperglycemia , without long-term current use of insulin Insomnia, unspecified type Mixed hyperlipidemia Essential hypertension with goal blood pressure less than 130/85 URINALYSIS STAT 07/22/2019 Type 2 diabetes mellitus 1:11 PM CDT with hyperglycemia, without long-term current use of insulin Insomnia, unspecified type Mixed hyperlipidemia Essential hypertension with goal blood pressure less than 130/85 HEMOGLOBIN A1C Routine 07/22/2019 Type 2 diabetes mellitus 1:11 PM CDT with hyperglycemia, without long-term current use of insulin Insomnia, unspecified type Mixed hyperlipidemia Essential hypertension with goal blood pressure less than 130/85 GLUCOSE, FASTING Routine 07/22/2019 Type 2 diabet es mellitus 1:11 PM CDT with hyperglycemia, without long-term current use of insulin Insomnia, unspecified type Mixed hyperlipidemia Essential hypertension with goal blood pressure less than 130/85 ELECTROLYTES Routine 07/22/2019 Type 2 diabetes mellitus 1:11 PM CDT with hyperglycemia, without long-term current use of insulin Insomnia, unspecified type Mixed hyperlipidemia Essential hypertension with goal blood pressure less than 130/85 UREA NITROGEN/CREATININE Routine 07/22/2019 Type 2 diabetes mellitus 1:11 PM CDT with hyperglycemia, without long-term current use of insulin Insomnia, unspecified type Mixed hyperlipidemia Essential hypertension with goal blood pressure less than 130/85 LIVER PROFILE Routine 07/22/2019 Type 2 diabetes mellitus 1:11 PM CDT with hyperglycemia, without long-term current use of insulin Insomnia, unspecified type Mixed hyperlipidemia Essential hypertension with goal blood pressure less than 130/85 LIPID PROFILE Routine 07/22/2019 Type 2 diabetes mellitus 1:11 PM CDT with hyperglycemia, without long-term current use of insulin Insomnia, unspecified type Mixed hyperlipidemia Essential hypertension with goal blood pressure less than 130/85 CBC (WITHOUT Routine 07/22/2019 Type 2 diabetes mellitus DIFFERENTIAL) 1:11 PM CDT with hyperglycemia, without long-term current use of insulin Insomnia, unspecified type Mixed hyperlipidemia Essential hypertension with goal blood pressure less than 130/85 OPHTHALMOLOGY RETINAL Routine 02/25/2019 Type 2 d iabetes mellitus SCAN 11:09 AM CDT with hyperglycemia, without long-term current use of insulin HEMOGLOBIN A1C Routine 02/25/2019 Type 2 diabetes mellitus 10:43 AM CDT with hyperglycemia, without long-term current use of insulin DIABETIC FOOT EXAM Routine 02/25/2019 Type 2 diab etes mellitus 8:20 AM CDT with hyperglycemia, without long-term current use of insulin after 01/26/2019 Results * URINALYSIS, MICROSCOPIC (07/22/2019 1:11 PM CDT) Pathologist [facility] RBC 11-21 (A) 0 - 4 /HPF [facility] WBC 5-20 (A) 0 - 5 /HPF [facility] Mucous Present (A) None seen /HPF [facility] Epithelial Cell 1/HPF (A) <1 /HPF [facility] Bacteria Moderate (A) None seen /HPF [facility] Granular Cast 0-1 None seen /LPF [facility] Specimen Urine Performing Organization Address [facility] one Number [facility] [address] [place] [address] [phone] [facility] * Urinalysis (07/22/2019 1:11 PM CDT) Pathologist [facility] Color Yellow Colorless, Straw, [facility] Yellow Clarity Clear Clear [facility] Spec [place], 1.025 1.005 - 1.035 [facility] Ur pH, Ur 5.5 5.0 - 8.0 [facility] Protein, Ur 2+ (A) Negative mg/dL [facility] Glucose, Ur 1+ (A) Negative [facility] Ketone, Ur Negative Negative [facility] Bilirubin, Ur Negative Negative [facility] Nitrite, Ur Negative Negative [facility] Urobilinogen, <1.0 <1.0 EU/dL [facility] Ur Leukocyte 1+ (A) Negative [facility] Blood, Ur 1+ (A) Negative [facility] Specimen Urine Performing Organization Address [facility] one Number [facility] [address] [place] [address] [facility] * Hemoglobin A1C (07/22/2019 1:11 PM CDT) Only the most recent of 2 results within the time period is included. Pathologist [facility] Hemoglobin A1c 10.4 (H) 4.3 - 6.1 % [facility] Estimated 252 (H) 70 - 110 mg/dL [facility] Average Glucose [facility] Specimen Blood Performing Organization Address [facility] one Number [facility] [address] [place] [address] * Electrolytes (07/22/2019 1:11 PM CDT) Pathologist [facility] Sodium 133 (L) 136 - 145 mmol/L [facility] Potassium 3.2 (L) 3.5 - 5.1 mmol/L [facility] Chloride 93 (L) 98 - 107 mmol/L [facility] CO2 25 21 - 31 mmol/L [facility] Anion Gap 15 5 - 16 mmol/L [facility] Specimen Blood Performing Organization Address [facility] one Number [facility] [address] [place] [address] * Liver Profile (07/22/2019 1:11 PM CDT) [facility] Total Protein 6.1 6.0 - 8.3 g/dL [facility] Bilirubin, 0.5 0.2 - 1.2 mg/dL [facility] Total [facility] Alkaline 281 (H) 34 - 104 U/L [facility] Phosphatase [facility] AST 11 (L) 13 - 39 U/L [facility] Direct 0.1 0.0 - 0.2 mg/dL [facility] Bilirubin [facility] ALT 27 7 - 52 U/L [facility] Albumin 3.1 (L) 3.7 - 5.3 g/dL [facility] Specimen Blood Performing Organization Address [facility] one Number [facility] [address] [place] [address] * Lipid Profile (07/22/2019 1:11 PM CDT) [facility] Cholesterol 123.0 <=200.0 mg/dL [facility] Triglyceride 186 (H) <150 mg/dL [facility] HDL 40.0 See Reference Range [facility] Narrative. mg/dL [facility] LDL 46 <100 mg/dL [facility] Comment: [facility] Optimal: < 100.0 mg/dL Near Optimal: 120-129 mg/dL Borderline: 130-159 mg/dL High: 160-189 mg/dL Very High: >=190 mg/dL Patient No [facility] Fasting? [facility] Specimen Blood Narrative Performed At Patient is not fasting. For a triglyceride result gre ater than 440 mg/dL, [facility] consider re-testing when the patient is in a fasting state. Performing Organization Address [facility] one Number [facility] [address] [place] [address] [phone] * Glucose, Fasting (07/22/2019 1:11 PM CDT) Glucose, 336 (H) 74 - 106 mg/dL [facility] Fasting Comment: LAB[facility] Reference Range: Two or more of the venous plasma concentrations must be met or exceeded for a positive diagnosis. Non- Fasting 105 mg/dL 95 mg/dL 1 hr 190 mg/dL 180 mg/dL 2 hr 165 mg/dL 155 mg/dL 3 hr 145 mg/dL 140 mg/dL Specimen Blood Performing Organization Address [facility] one Number [facility] [address] [place] [address] [phone] * CBC (without differential) (07/22/2019 1:11 PM CDT) Pathologist [facility] WBC 16.2 (H) 4.5 - 11.0 K/uL [facility] RBC 3.39 (L) 4.20 - 5.40 M/uL [facility] Hemoglobin 10.3 (L) 12.0 - 16.0 g/dL [facility] Hematocrit 30.5 (L) 37.0 - 47.0 % [facility] MCV 90.0 82.0 - 92.0 fL [facility] MCH 30.4 27.0 - 32.0 pg [facility] MCHC 33.8 32.0 - 36.0 g/dL [facility] RDW 48.4 (H) 36.4 - 46.3 fL [facility] Platelet 350 150 - 400 K/uL [facility] Mean Platelet 9.2 (L) 9.4 - 12.4 fL [facility] Volume [facility] Percent NRBC 0.0 % [facility] Specimen Blood Performing Organization Address [facility] one Number [facility] [address] [place] [address] [phone] * Urea Nitrogen/Creatinine (07/22/2019 1:11 PM CDT) Pathologist [facility] Urea Nitrogen 54.0 (H) 7.0 - 25.0 mg/dL [facility] Creatinine 5.1 (H) 0.6 - 1.2 mg/dL [facility] GFR, Estimated 8 (L) >=90 mL/min/1.73 m2 [facility] Specimen Blood Performing Organization Address City/State/Zipcode Ph one Number [facility] [address] [place] [address] * OPHTHALMOLOGY RETINAL SCAN (02/25/2019 11:09 AM CDT) RETINAL ALERT (A) [facility] SCAN-FINAL RESULT Right Diabetic None [facility] Retinopathy Right Macular None [facility] Edema Right Other Suspected Glaucoma (A) [facility] Suspected Conditions Right Image Gradeable Image [facility] Quality Left Diabetic Mild (A) [facility] Retinopathy Left Macular None [facility] Edema Left Other Suspected Glaucoma (A) IR[facility] Suspected Conditions Left Image Gradeable Image IRIS Quality Specimen Narrative Performed At Retinal Study Result for STEPHANIE MURCIA YOLANDA, a 68 y/o, F (: , ) presented to [facility] on 02-25-2019 for a retinal imaging study of the left and right eye s. Based on the findings of the study, the following is recommended for STEPHANIE MURCIA Other Suspected Condition Found: Refer to [facility], next available appointment. For Follow-up at [facility]: The patient can be scheduled into any [facility] that has an ope n booking by calling the appointment center. Interpreting Provider's Comments: No comments provided Right Eye Findings: Negative for Diabetic Retinopathy. Other: Suspected Glaucoma Left Eye Findings: Diabetic Retinopathy: Mild Other: Suspected Glaucoma This result was electronically signed Adal Clark MD, , Taxonomy: [id number] on 02-25-2019 05:5 0:44 [facility] time. NOTE: Any pathology noted on this sarthak betic retinal evaluation should be confirmed by an appropriate ophthalmic examination. Performing Organization Address [facility]/State[facility] Ph one Number [facility] * DIABETIC FOOT EXAM (02/25/2019 8:20 AM CDT) Narrative Performed At Moises Jung MD 019 11:27 AM Diabetic Foot Exam was performed at 10:33 AM. Right foot sensation is normal, right foot pulses are normal, right foot appearance is normal. Left foot sensation is nor mal, left foot pulses are normal, left foot appearance is normal. after 01/26/2019 Insurance Type Payer Benefit Subscriber ID Effective Phone Address Plan / Dates Group [facility] xxxxxxxxx 2014-P [phone] [address] [employer] [address] [id number] [place] [address]
--- NOTE | 2020-01-27 13:33 | NUR ---
consent for blood signed by daughter and placed into chart. per ERMD Dr. Melissa Maldonado, HD nurse to collect PD fluid sample
--- NOTE | 2020-01-27 16:43 | Diagnostic Imaging Report ---
EXAM: CT Abdomen and Pelvis WITHOUT intravenous contrast INDICATION: ^Localized infraumbilical tenderness ^[id number] ^1626. COMPARISON: None. TECHNIQUE: Abdomen and pelvis were scanned utilizing a multidetector helical scanner from the lung base to the pubic symphysis without administration of IV contrast. Coronal and sagittal reformations were obtained. Routine technique was performed. IV CONTRAST: None ORAL CONTRAST: None COMPLICATIONS: None RADIATION DOSE: Total DLP: 674 mGy*cm Dose modulation, iterative reconstruction, and/or weight based adjustment of the mA/kV was utilized to reduce the radiation dose to as low as reasonably achievable. FINDINGS: LOWER THORAX: Normal. HEPATOBILIARY: No focal hepatic lesions. No biliary ductal dilatation. The gallbladder is distended measuring up to 8.9 x 4.7 cm. No calcified gallstones are identified. SPLEEN: No splenomegaly. Trace perisplenic free fluid is noted, nonspecific. PANCREAS: No focal masses or ductal dilatation. ADRENALS: No adrenal nodules. KIDNEYS/URETERS: Bilateral atrophic kidneys are noted with indeterminate hypodense lesion arising from the interpolar region of the right kidney, likely related to a cyst. PELVIC ORGANS/BLADDER: Urinary bladder is decompressed. Uterus is surgically absent. Left ovarian hypodense lesion is noted measuring up to 3.4 x 3.4 cm with internal fluid density. PERITONEUM / RETROPERITONEUM: Negative for pneumoperitoneum. Trace responded free fluid is noted.. Stable dialysis catheter is noted entering the left lower quadrant tip terminating in the midline pelvis. LYMPH NODES: No lymphadenopathy. VESSELS: Right common femoral central venous catheter is noted with tip terminating within the mid right external iliac vein. Small amount of air is noted within the vein, likely related to recent instrumentation or injection. GI TRACT: Limited due to lack of oral contrast. Stomach and portions of the colon are decompressed. No surrounding inflammatory changes are noted. Normal appendix is noted. Negative for obstruction. BONES AND SOFT TISSUES: Negative for acute osseous abnormality. Mild to moderate multilevel degenerative changes of the spine are noted including posterior partially calcified disc bulges and disc space narrowing. Scattered facet arthropathy is also noted. No suspicious lytic or blastic lesion is noted. IMPRESSION: 1. Mild gallbladder distention without calcified gallstone. Correlate with physical exam and lab values and consider follow-up ultrasound if clinically indicated. 2. Hypodense cystic left adnexal/ovarian lesion measuring up to 3.4 cm. Recommend nonemergent follow-up ultrasound further evaluation. Signed by: Dylan Ramirez MD on 01/27/2020 4:40 PM
[2020-01-27 16:45] VITALS: BP 126/96
[2020-01-27 17:13] VITALS: BP 126/96
[2020-01-27 17:16] VITALS: BP 126/96
[2020-01-27] MEDS ORDERED: SODIUM CHLORIDE 0.9% 250ML 250 ML ONE (17:58)
[2020-01-27] MEDS ORDERED: HYDRALAZINE HCL10 MG PO (18:20)
[2020-01-27] MEDS ORDERED: AMITRIPTYLINE H25 MG PO (18:21)
[2020-01-27] MEDS ORDERED: ATORVASTATIN CA20 MG PO (18:21)
[2020-01-27] MEDS ORDERED: METFORMIN HCL500 MG PO (18:22)
[2020-01-27] MEDS ORDERED: CALCITRIOL0.5 MCG PO (18:22)
[2020-01-27] MEDS ORDERED: GLIPIZIDE5 MG PO (18:23)
[2020-01-27] MEDS ORDERED: POTASSIUM CHLO20 ME1 PO (18:24)
[2020-01-27] MEDS ORDERED: FUROSEMIDE40 MG PO (18:25)
--- NOTE | 2020-01-27 18:38 | NUR ---
Home medications verified with patients daughter Delaney. and updated in computer.
[2020-01-27 20:00] VITALS: BP 157/68
--- NOTE | 2020-01-27 20:57 | Consultation ---
DATE OF CONSULTATION: 01/27/2020 Nephrology Consultation REASON FOR CONSULTATION: End-stage kidney disease patient on peritoneal dialysis. HISTORY OF PRESENT ILLNESS: Stephanie Murcia is a 69-year-old woman, who speaks no Chadian. However, I did interview her daughter and the ER physician for history. She is maintained on nightly cycler-assisted peritoneal dialysis for the last year or so without too much problem. Her primary kidney disease is likely to be diabetes mellitus and hypertension. According to the daughter who lives with the patient, the patient was becoming progressively weaker and becoming unable to walk. The daughter did not notice any fever, chills, shortness of breath, or any upper or lower GI bleed. The peritoneal dialysis continued without problem and the fluid remained clear. The patient was going to the PD Unit thrice a week for IV injection as treatment for calciphylaxis. Upon arrival to the ER, the patient was seen by the ER physician, who thought that she might be developing sepsis since her lactic acid was 2.6. He has started her on empiric IV Zosyn. Peritoneal fluid is waiting to be drawn for testing. Upon my examination, the patient is alert and appears oriented, but speaks no Chadian. She is in no acute distress at this time. Points to her lower mid abdomen as this site of pain. Her hemoglobin was only 5.6 while her white count was 9.63 with normal platelets. Serum chemistries were significant for a creatinine of 8.3, BUN 77, and potassium of 3. Serum albumin 2.5. PAST MEDICAL HISTORY: Diabetes mellitus, hypertension, end-stage kidney disease, calciphylaxis and anemia. CURRENT MEDICATIONS: Reviewed in MAR. She is getting IV fluid at 125 mL an hour of sodium chloride and has received one dose of IV Zosyn. SOCIAL HISTORY: Unobtainable from the patient at this time. REVIEW OF SYSTEMS: Unobtainable from the patient due to language barrier. However, please see HPI above for details available. PHYSICAL EXAMINATION: GENERAL: The patient is in no acute distress at this time. Able to hold conversation. VITAL SIGNS: Blood pressure 147/85, pulse 97 per minute, respirations 14 per minute. She is afebrile. Pulse oximetry is 100% on 4 L of nasal cannula oxygen. HEENT: Normocephalic, atraumatic head. No icterus. NECK: Supple without jugular venous distention. CHEST: Bilateral air entry symmetrically without wheezing. No respiratory distress. CARDIOVASCULAR: S1, S2. ABDOMEN: Soft and tender only in the suprapubic area. No rebound tenderness. No distention. EXTREMITIES: Without pitting edema or cyanosis. NEUROLOGICAL: Grossly, nonfocal exam. LABORATORY DATA: As noted in HPI above. Urinalysis and peritoneal fluid for cell count, differential and culture is pending. Serum lipase was 116. IMPRESSION: 1. End-stage kidney disease, maintained on likely cycler-assisted peritoneal dialysis, which has been going on uneventfully per the patient's daughter. The patient presently appears euvolemic. 2. Anemia, more than is expected from her chronic kidney disease. No overt GI or other bleeding. ER physician ordered 2 units of packed red blood cells to be transfused today. 3. Abdominal pain, will rule out peritonitis although the suspicion is not strong in view of clear PD fluid per daughter and no significant upper abdominal pain. 4. Suprapubic pain, urinalysis not been done yet. If pain continues, would recommend CT scan for evaluation. 5. I am contacting the PD nurse, and we will try to continue the patient's usual peritoneal dialysis while in hospital. If that is not practical or possible, will need to put in a temporary hemodialysis catheter. Barrett Garay MD [facility]/MODL /[id number]
[2020-01-27] MEDS ORDERED: ZOLPIDEM TARTRATE 5 MG TAB PO PRN (21:00)
--- NOTE | 2020-01-27 21:07 | Consultation ---
DATE OF CONSULTATION: Cardiac Consultation REASON FOR CONSULTATION: Multiple medical health problems. HISTORY OF PRESENT ILLNESS: Poorly historian lady, information taken from her, but more importantly from her family. Apparently, she is known with diabetes mellitus for the last 20 years. She is on peritoneal dialysis for the last 18 months. She does have hypertension. The patient's condition is worsening over the last week. She does have left lower quadrant abdominal pain with nausea, vomiting, weakness. No energy. The patient's condition continued to deteriorate. She had maybe fever. As per daughter, they want to take her to the Dialysis Center to take some injection probably for anemia and she was very weak. She was unable to walk. So, they brought her over. The patient also complaining of pain in both lower extremity, which is chronic. She does have also some skin problems secondary to diabetes with sclerosis. Her fever, chills, and abdominal pain is her main problem with nausea, vomiting, weakness. She denied any chest pain. She does have shortness of breath. Her lab showed extreme anemia with hemoglobin of 5.6, hematocrit of 17.1. Her white blood cell count of 9.6. Her chemistry showed lactic acid elevated at 2.4. Her BUN 77, creatinine of 8.3, bicarb of 20, potassium of 3. BNP mildly elevated at 217. Cardiac enzymes are normal. I visited with the patient, this was very difficult because we need to call her family and to do a lot of phone call to get all this information. REVIEW OF SYSTEMS: GENERAL: Fever, chills, failure to thrive. HEENT: No vision problem. PULMONARY/CARDIAC: Moderate shortness of breath on exertion. No pleuritic chest pain. No angina. Easy fatigability. ABDOMEN: Lower abdominal pain, tenderness. EXTREMITIES: Lower extremity weakness, chronic skin changes, tingling and numbness of the lower extremity. NEUROLOGICAL: Weakness and debility. SOCIAL HISTORY: She stay at home with good family support. She is nonsmoker and non-alcohol drinker. PAST MEDICAL HISTORY: 1. Diabetes mellitus for 20 years. 2. Hypertension for 15 years or so. 3. Peritoneal dialysis for the last 18 months. 4. Severe end organ damage secondary to diabetes mellitus. 5. Peripheral neuropathy. 6. Decreased vision, possible retinal disease. 7. Chronic anemia. 8. Peritoneal dialysis catheter. FAMILY HISTORY: Strongly positive for diabetes mellitus and coronary artery disease. MEDICATIONS: 1. Calcitriol 0.25 mcg b.i.d. 2. Vitamin D. 3. Metformin 500 mg twice a day. 4. Glipizide 10 mg a day. 5. Lasix 40 mg a day. 6. Potassium chloride 20 mEq a day. 7. Atorvastatin 40 mg a day. 8. Hydralazine 50 mg t.i.d. ALLERGIES: NONE. PHYSICAL EXAMINATION: VITAL SIGNS: Height of 5 feet, weight of 170 pounds, blood pressure 110/80, heart rate of 100, respiratory rate of 18, afebrile as her temperature of 98.1. HEENT: Pupils are reactive. NECK: No elevation of jugular venous pulsation. CHEST: Few crackles. HEART: PMI 5th left intercostal space. Normal first and second heart sounds. ABDOMEN: PD dialysis in place. Tenderness of the left lower quadrant with some rebound. EXTREMITIES: There are skin changes with area of sclerosis and chronic changes of diabetes. Decreased pulses in the lower extremities. No gross DVT signs. NEUROLOGIC: Awake, alert, and oriented. Gait is not examined. She is able to move her extremities. Some muscle wasting noted in the lower extremities with bruises and skin changes noted as described above. LABORATORY DATA: Sodium of 140, potassium 3, BUN 77, creatinine of 8.3, hemoglobin of 5.6, hematocrit 17%, white blood cell count of 9.6. EKG showing normal sinus rhythm, PACs, prolonged QT, nonspecific ST changes. Chest x-ray showing cardiomegaly. IMPRESSION AND PLAN: 1. Abdominal pain with tenderness. Peritoneal dialysis catheter in place. Fever, chills, possible peritonitis. 2. Debility. 3. Diabetes mellitus, severe end-organ damage. 4. Hypertension. 5. High probability of coronary artery disease. 6. Skin changes. 7. Possible sepsis. From a cardiac point of view, the patient already had cultures. She is on appropriate medication. She will be on dialysis for her volume management. An echocardiogram is ordered. We will review it when it is ready. We will check the blood culture. We will check her progression. Pending on her course further steps to be done. MD SARA Landa/MODL :37:46 /[id number]
[2020-01-27 21:38] VITALS: BP 157/68
[2020-01-27] MEDS: PIPERACILLIN/TAZO 2.25 GM 50 ML IV SCH (22:00)
--- NOTE | 2020-01-27 22:02 | Consultation ---
DATE OF CONSULTATION: Pulmonary Critical Care Consultation CHIEF COMPLAINT: Weakness and lightheadedness. She had difficulty standing according to the family. HISTORY OF PRESENT ILLNESS: The patient is a 69-year-old woman. She has a history of end-stage renal disease. She receives peritoneal dialysis. Yesterday, the family noticed she is weaker. She felt lightheaded and had difficulty standing. They subsequently took the patient to the emergency department, where she was found to have a hemoglobin of 5.6. The patient denies any vomiting or hematemesis. She has not noted any melena or hematochezia. She denies any fevers. She does have some mild abdominal pain. PAST SURGICAL HISTORY: 1. Status post hysterectomy. 2. Status post peritoneal catheter placement. 3. No prior gastrointestinal surgery. PAST MEDICAL HISTORY: 1. End-stage renal disease. 2. The patient denies any prior respiratory problems. 3. She denies any prior heart problems. ALLERGIES: NO KNOWN DRUG ALLERGIES. FAMILY HISTORY: Family history is noncontributory. SOCIAL HISTORY: The patient is not a smoker or drinker. REVIEW OF SYSTEMS: The patient is afebrile. She is not complaining of any fevers. She has no headache. She has no neck pain. The patient is not having any chest pain. She does not complain of any cough or difficulty breathing. She does have some suprapubic pain. She denies any burning with urination or dysuria. She denies any vaginal bleeding or hematuria. PHYSICAL EXAMINATION: VITAL SIGNS: The blood pressure is 155/61 saturation is 100% on 2 L. Pulse is 97. HEENT: Shows no facial swelling or erythema. LYMPHATIC: Shows no submandibular, cervical, or supraclavicular adenopathy. CARDIAC: Reveals regular rate and rhythm with normal S1 and S2. LUNGS: Auscultation of lungs reveals clear breath sounds bilaterally. There is no wheezing. ABDOMEN: Soft. There is some mild infrapubic tenderness and there is an area of induration just inferior to the umbilicus. There is some tenderness in the infraumbilical and suprapubic area. There is a localized area of induration just inferior to the umbilicus. There is also a peritoneal catheter in place. EXTREMITIES: There is no leg edema. NEUROLOGIC: She has no focal neurological abnormalities. LABORATORY DATA: BUN to creatinine ratio is 77 to 8.31. The potassium is 3. Carbon dioxide is 20 and the lactic acid is 2.4. Glucose is 228. Hemoglobin is 5.7 and the white blood cell count is 9.6. The platelet count is 328. IMPRESSION: 1. Anemia secondary to acute and chronic blood loss. 2. Localized lower abdominal pain. 3. End-stage renal disease. 4. Hypertension. PLAN: 1. The patient is receiving packed red blood cells. 2. CT scan of abdomen and pelvis to evaluate for any incarcerated hernia or other abdominal pathology. 3. Sample from peritoneal catheter to rule out peritonitis. 4. The patient to receive Zosyn. 5. The patient has received intravenous fluids as well. Esteban Bautista MD [facility]/MODL /[id number]
[2020-01-28] VITALS (8 sets, daily range): BP systolic 110–131; BP diastolic 52–80
[2020-01-28] MEDS: MORPHINE SULFATE INJ 4 MG/ML INJ 1ML IV PRN ×3 (04:47→19:51)
[2020-01-28 04:48] LABS: BASOPHILS % 0.3 % (0.0-1.0); EOSINOPHILS # (AUTO) 0.2 (0.0-0.4); EOSINOPHILS % 2.6 % (0.0-6.0); HEMATOCRIT 23.1 % (34.2-44.1); HEMOGLOBIN 7.8 g/dL (12.0-16.0); LYMPHOCYTES # (AUTO) 1.9 (1.0-3.2); LYMPHOCYTES % 20.8 % (18.0-39.1); MEAN CORPUSCULAR HEMOGLOBIN 28.3 pg (28-32); MEAN CORPUSCULAR HGB CONC 33.8 g/dL (31-35); MEAN CORPUSCULAR VOLUME 83.7 fL (81-99); MONOCYTES # (AUTO) 0.4 (0.2-0.8); MONOCYTES % 4.6 % (4.4-11.3); NEUTROPHILS # (AUTO) 6.5 (2.1-6.9); NEUTROPHILS % 71.4 % (38.7-80.0); PLATELET COUNT 207 x10e3/uL (140-360); RED BLOOD COUNT 2.76 x10e6/uL (3.6-5.1); RED CELL DISTRIBUTION WIDTH 16.9 % (11.7-14.4)
[2020-01-28 05:17] LABS: CREATINE KINASE MB 2.5 ng/mL (0-5.0)
[2020-01-28 05:44] LABS: CHOL/HDL RATIO 4.5 (3.0-3.6)
[2020-01-28] MEDS: PIPERACILLIN/TAZO 2.25 GM 50 ML IV SCH ×3 (06:00→22:00)
[2020-01-28 06:28] LABS: ALBUMIN 2.2 g/dL (3.5-5.0); ALBUMIN/GLOBULIN RATIO 0.8 (0.8-2.0); ANION GAP 30.5 mmol/L (8-16); CALCIUM 7.4 mg/dL (8.4-10.2); CREATININE, SERUM 7.51 mg/dL (0.57-1.11)
--- NOTE | 2020-01-28 06:28 | NUR ---
H&P cc: abdominal pain HPI: 69yoF, PCP , with hx ESRD on PD, with worsening abdominal pain and generalized weakness and abdominal pain for 5 days; no fever/N/V/D. PMH: DM2, Hypertensive heart ds, ESRD on PD, Calciphalyxis, AOCD, Cardiomegaly PSHx: PD catheter, hysterectomy Allergies; see emr FH/SH: no illicits Meds; see MAR ROS; no f/c/s/N/V/D/TURCIOS/cp/skin rash/confusion/dizziness/focal limb weakness v/s revd PE tired appearing anicteric ns1s2 mod bs soft nd; minimal tenderness in abdomen; PD catheter in place; no surrounding erythema skin dry n. affect a&ox3; no leg edema labs/meds revd A/P: 69yoF Possible peritonitis- empiric ABX Severe anemia- transfuse 2 units PRBC with improvement ESRD on PD- per nephro DM2- hab1c/lipids Calciphylaxis- Obesity- 1/2 portion sizes BMI 33- as above Cardiomegaly Cholelithiasis Left adnexa lesion Hypertensive heart ds- home meds Prop: scd Dispo; CHAYO ZAYAS MD, PHD.
[2020-01-28 06:33] LABS: POTASSIUM 2.5 mmol/L (3.5-5.1)
[2020-01-28] MEDS ORDERED: POTASSIUM CHLORIDE 20MEQ/100ML 200 ML IV ONE (07:00)
[2020-01-28] MEDS ORDERED: DEXTROSE 50% SYRINGE 50 ML IV PRN (07:15)
[2020-01-28] MEDS ORDERED: POTASSIUM CHLORIDE 20 MEQ TAB CR PO ONE (07:25)
[2020-01-28] MEDS: INSULIN LISPRO 100 UNIT/1 ML 3ML VIAL SQ SCH ×4 (07:30→20:38)
[2020-01-28 08:06] LABS: BODY FLUID APPEARANCE CLEAR; BODY FLUID COLOR STRAW; BODY FLUID TYPE PERITONEAL
[2020-01-28 08:07] LABS: CLARITY,URINE CLEAR (CLEAR); COLOR,URINE STRAW (YELLOW)
[2020-01-28 08:08] LABS: BILIRUBIN,URINE NEGATIVE (NEGATIVE); KETONES,URINE NEGATIVE (NEGATIVE); LEUKOCYTE ESTERASE ,URINE NEGATIVE (NEGATIVE); NITRITE,URINE NEGATIVE (NEGATIVE); PROTEIN,URINE DIPSTICK 1+ (NEGATIVE); URINE UROBILINOGEN 0.2 mg/dL (0.2 - 1)
[2020-01-28 08:20] LABS: BACTERIA,URINE FEW /HPF
[2020-01-28 08:43] LABS: LYMPHOCYTES,BODY FLUID 61 %; MONO/MACROPHG,BODY FLUID 38 %; NEUTROPHILS,BODY FLUID 1 %
[2020-01-28] MEDS: POTASSIUM CHLORIDE 20 MEQ TAB CR PO SCH (08:43)
[2020-01-28] MEDS: AMITRIPTYLINE HCL 25 MG TAB PO SCH (08:43)
[2020-01-28] MEDS: HYDRALAZINE HCL 100 MG TABLET PO SCH (08:43)
[2020-01-28] MEDS: FUROSEMIDE 40 MG TAB PO SCH (08:43)
[2020-01-28 08:46] LABS: RBC,BODY FLUID 10 cells/uL; WBC,BODY FLUID 4 cells/uL
--- NOTE | 2020-01-28 10:00 | Progress Note ---
DATE: SUBJECTIVE: The patient feels better overall this morning. She is not having abdominal pain. She has no fevers. She complains of some pain in her thighs laterally on both sides. She also has a sore on the bottom of her leg posteriorly near the Achilles tendon on the right side. She says that these places started as nodules that then ulcerated. The pain has been present for about three months. PHYSICAL EXAMINATION: VITAL SIGNS: The blood pressure is 127/80, saturation is 100% and the pulse is 89. HEENT: Shows no facial swelling or erythema. LYMPHATIC: Shows no submandibular, cervical, or supraclavicular adenopathy. CARDIAC: Reveals regular rate and rhythm with normal S1 and S2. LUNGS: Auscultation of lungs shows clear breath sounds bilaterally. There is no wheezing. ABDOMEN: Soft and nontender. There is no rebound or guarding. EXTREMITIES: Shows no leg edema or calf tenderness. There are some ecchymotic areas on the lateral thighs that are tender as well as an ulceration posteriorly near the Achilles tendon region on the right lower extremity. LABORATORY DATA: Hemoglobin is 7.8 and white blood cell count is 9.1. The platelet count is 207. The BUN to creatinine ratio is 64 to 7.5. The potassium is 2.5. Carbon dioxide is 20. RADIOGRAPHIC DATA: Chest x-ray shows some gallbladder distention. There is also a hypodense cystic lesion in the left adnexa. IMPRESSION: 1. Anemia secondary to acute and chronic blood loss. 2. Painful areas of ecchymosis and nodules on the legs for the past 3 months. 3. End-stage renal disease. 4. Hypertension. 5. Adnexal cyst or mass. PLAN: 1. Continue to monitor blood counts and give packed red cells as needed. 2. Gynecology evaluation. 3. Dialysis as needed. 4. Continue antibiotics until cultures are back. 5. Pain medication and evaluation for extremity pain. Esteban Bautista MD [facility]/MODL /[id number]
[2020-01-28] MEDS ORDERED: CALCITRIOL 0.5 MCG CAP PO SCH (10:30)
[2020-01-28] MEDS: CALCITRIOL 0.25 MCG CAP PO SCH (12:12)
[2020-01-28] MEDS: ONDANSETRON HCL INJ 2MG/ML 2ML 2 MG/ML VIAL IV PRN (13:16)
--- NOTE | 2020-01-28 13:28 | NUR ---
WOUND CARE CONSULT 69 YO FEMALE HX OF PERITONITIS,ESRD,SEPSIS JOEL 0N CONSERVATIVE PUP STATUS AND INTERVENTIONS LABS: WBC- 9.12 HGB- 7.8 GLUCOSE-102 SKIN ASSESSMENT COMPLETE PATIENT PRESENTS WITH PARTIAL THICKNESS WOUND TO RIGHT LOWER LEG SCABBED OVER SKIN TEAR RECOMMENDATIONS: NURSING TO CONTINUE TO MONITOR PATIENT AND KEEP SKIN CLEAN AND FREE FROM LOOSE STOOL OR IRRITATING MOISTURE AND CONTINUE TO FOLLOW MODERATE PUP INTERVENTIONS NURSING TO CONTINUE TO GET PATIENT OUT OF BED FOR MEALS AND MUCH TOLERATED NURSING TO CLEAN PARTIAL THICKNESS WOUND TO RIGHT LOWER LEG WITH NORMAL SALINE DAILY AND APPLY BACITRACIN OINTMENT TO WOUND BASE AND COVER WITH ALLEVYN FOAM DRESSING Addendum: 01/28/20 at 1338 by Molina Lema RN Amended: Links added.
[2020-01-28 13:44] LABS: CREATINE KINASE MB 2.2 ng/mL (0-5.0)
--- NOTE | 2020-01-28 14:05 | NUR ---
second bag of potassium stopped per Dr. Garay nephrology. Patient has received 60 meq potassium total and ok to stop infusion.
--- NOTE | 2020-01-28 18:19 | Progress Note ---
DATE: 01/28/2020 Nephrology Progress Note SUBJECTIVE: Followed up for end-stage kidney disease, on maintenance peritoneal dialysis. The patient was dialyzed overnight using the cycler for a total of 2 L exchanges using 1.5% dextrose. No problems reported. She is more comfortable today. OBJECTIVE: GENERAL: The patient appears in no acute distress. She is receiving IV morphine for pain in leg lesions of calciphylaxis. VITAL SIGNS: Stable. Blood pressure 114/52, pulse 96 per minute. She is afebrile. NECK: Without JVP. RESPIRATION: Bilateral air entry, without distress. CARDIOVASCULAR: Normal S1 and S2. ABDOMEN: Soft, depressible, and nondistended. There is still some suprapubic tenderness. EXTREMITIES: Without pitting edema or cyanosis. There are areas of bluish discoloration of skin around the thigh, which are likely lesions of calciphylaxis. NEUROLOGICAL: Alert and oriented. No obvious focal deficit. LABORATORY DATA: White count is 9.1, hemoglobin is up to 7.8 after 2 units of packed red blood transfusion yesterday. Platelets are normal. Serum chemistry significant for low potassium of 2.5. Bicarb is 20. Serum albumin 2.2. Cell count and differential on PD aspirate, although taken this morning after antibiotic had been started yesterday, still very unremarkable for peritonitis. Urinalysis shows 11 to 20 red cells, 6 to 10 white cells, only few urine bacteria. IMPRESSION: 1. End-stage kidney disease. We will continue peritoneal dialysis tonight using same prescription. Monitor ultrafiltration. 2. Hypokalemia, being corrected orally and IV per primary team. We will monitor. 3. Anemia of chronic kidney disease as well as acute lowering of hemoglobin, requiring transfusion of packed cells yesterday. We will monitor in hospital. 4. Hypertension. Continue current blood pressure medication and monitor BP. 5. Calciphylaxis, pain control underway for now. Barrett Garay MD [facility]/MODL /[id number]
[2020-01-28] MEDS: ATORVASTATIN 40 MG TAB PO SCH (19:50)
[2020-01-29] VITALS (8 sets, daily range): BP systolic 101–148; BP diastolic 54–85
[2020-01-29 04:45] LABS: BASOPHILS # (AUTO) 0.1 (0.0-0.1); BASOPHILS % 0.5 % (0.0-1.0); EOSINOPHILS # (AUTO) 0.3 (0.0-0.4); EOSINOPHILS % 2.9 % (0.0-6.0); HEMATOCRIT 25.1 % (34.2-44.1); HEMOGLOBIN 8.1 g/dL (12.0-16.0); LYMPHOCYTES # (AUTO) 1.3 (1.0-3.2); LYMPHOCYTES % 13.5 % (18.0-39.1); MEAN CORPUSCULAR HEMOGLOBIN 27.6 pg (28-32); MEAN CORPUSCULAR HGB CONC 32.3 g/dL (31-35); MEAN CORPUSCULAR VOLUME 85.7 fL (81-99); MONOCYTES # (AUTO) 0.5 (0.2-0.8); MONOCYTES % 5.3 % (4.4-11.3); NEUTROPHILS # (AUTO) 7.3 (2.1-6.9); NEUTROPHILS % 77.3 % (38.7-80.0); PLATELET COUNT 247 x10e3/uL (140-360); RED BLOOD COUNT 2.93 x10e6/uL (3.6-5.1); RED CELL DISTRIBUTION WIDTH 17.4 % (11.7-14.4)
[2020-01-29 05:02] LABS: ANION GAP 26.3 mmol/L (8-16); CALCIUM 7.5 mg/dL (8.4-10.2); CREATININE, SERUM 7.16 mg/dL (0.57-1.11); POTASSIUM 3.3 mmol/L (3.5-5.1)
--- NOTE | 2020-01-29 06:10 | NUR ---
IM- progress note O/N see below ROS; no f/c/s/N/V/D/TURCIOS/cp/skin rash/confusion/dizziness/focal limb weakness v/s revd PE tired appearing anicteric ns1s2 mod bs soft nd; minimal tenderness in abdomen; PD catheter in place; no surrounding erythema skin dry n. affect a&ox3; no leg edema labs/meds revd A/P: 69yoF UTI- IV abx Suprapubic pain- empiric ABX Severe anemia- transfuse 2 units PRBC with improvement ESRD on PD- per nephro DM2- hab1c/lipids Calciphylaxis- Obesity- 1/2 portion sizes BMI 33- as above Cardiomegaly Cholelithiasis Left adnexa lesion Hypertensive heart ds- home meds Prop: scd Dispo; 9-16 labs revd; UTI- cont IV abx; does not have peritonitis; continue treatment of suprapubic discomfort; cont PD. CHAYO ZAYAS MD, PHD.
[2020-01-29] MEDS: PIPERACILLIN/TAZO 2.25 GM 50 ML IV SCH ×3 (06:45→22:43)
[2020-01-29] MEDS: INSULIN LISPRO 100 UNIT/1 ML 3ML VIAL SQ SCH ×4 (07:30→21:00)
[2020-01-29] MEDS: HYDRALAZINE HCL 100 MG TABLET PO SCH (09:55)
[2020-01-29] MEDS: AMITRIPTYLINE HCL 25 MG TAB PO SCH (09:55)
[2020-01-29] MEDS: CALCITRIOL 0.25 MCG CAP PO SCH (09:57)
[2020-01-29] MEDS: FUROSEMIDE 40 MG TAB PO SCH (09:57)
[2020-01-29] MEDS: POTASSIUM CHLORIDE 20 MEQ TAB CR PO SCH (09:57)
[2020-01-29] MEDS: BACITRACIN ZINC 15 GM OINT TOP SCH (09:57)
--- NOTE | 2020-01-29 12:37 | Progress Note ---
DATE: SUBJECTIVE: The patient is currently complaining of some pain in her thighs bilaterally. She has no nausea or vomiting. PHYSICAL EXAMINATION: VITAL SIGNS: The patient is afebrile. The blood pressure is 101/85, saturation is 96%, and the pulse is 109. HEENT: Shows no facial swelling or erythema. LYMPHATIC: Shows no submandibular, cervical, or supraclavicular adenopathy. CARDIAC: Reveals regular rate and rhythm with normal S1 and S2. LUNGS: Auscultation of lungs reveals clear breath sounds bilaterally. There is no wheezing. ABDOMEN: Soft and nontender. There is no rebound or guarding. EXTREMITIES: Show no leg edema. There is some tenderness of the lateral thighs. LABORATORY DATA: White blood cell count is 9.4, hemoglobin is 8.1, and the platelet count is 247. The BUN to creatinine ratio is significant for 56/7.16. Potassium is 3.3. Other electrolytes are within normal limits. RADIOGRAPHIC DATA: Chest x-ray shows no acute disease. IMPRESSION: 1. Anemia secondary to acute and chronic blood loss. 2. Soft tissue ecchymoses, nodules bilaterally with chronic pain. 3. End-stage renal disease. 4. Adnexal cyst versus mass. PLAN: 1. Pain control. 2. Complete antibiotics. 3. Monitor blood counts. 4. Continue dialysis. 5. Workup for adnexal mass. Esteban Bautista MD [facility]/MODL /[id number]
[2020-01-29] MEDS: MORPHINE SULFATE INJ 4 MG/ML INJ 1ML IV PRN (12:38)
[2020-01-29] MEDS: HYDROCODONE/APAP 7.5MG-325MG 1 EA TAB PO PRN (12:58)
--- NOTE | 2020-01-29 13:58 | Progress Note ---
DATE: 01/29/2020 Nephrology Progress Note SUBJECTIVE: Followed up for end-stage kidney disease, on nightly cycler-assisted peritoneal dialysis. Complains of pain in the right thigh skin lesions. OBJECTIVE: VITAL SIGNS: Stable. Blood pressure 101/85, respiration 18 per minute, and afebrile. NECK: Without JVP. RESPIRATIONS: Bilateral air entry without wheezing. CARDIOVASCULAR: Regular rate and rhythm. ABDOMEN: Soft, obese, and nondistended. There is still marked point tenderness in the suprapubic area. NEUROLOGICAL: Alert and oriented. LABORATORY DATA: White count remains normal. Hemoglobin is up to 8.1 following transfusions. Serum chemistry show a potassium of 3.3, otherwise stable for dialysis patient. CT of the abdomen and pelvis without IV contrast on admission mentions a hypodense cystic left adnexal/ovarian lesion, measuring up to 3.4 cm. PD fluid cultures negative. IMPRESSION: 1. End-stage kidney disease, continue continuous cycling peritoneal dialysis. Last night, reportedly, she retained fluid. May continue with all 1.5% tonight and monitor ultrafiltration. 2. Hypokalemia, replace as needed. 3. Anemia secondary to chronic kidney disease as well as acute. Much better hemoglobin after 2 units of packed red blood cells. 4. Hypertension, tightly control. 5. Calciphylaxis, treated with pain control. 6. She is on antibiotics for suspected urinary tract infection. I could not find a urine culture. Barrett Garay MD [facility]/MODL /[id number]
[2020-01-29] MEDS: ATORVASTATIN 40 MG TAB PO SCH (21:50)
[2020-01-30] VITALS (9 sets, daily range): BP systolic 95–156; BP diastolic 52–89
--- NOTE | 2020-01-30 04:46 | NUR ---
IM- progress note O/N see below ROS; no f/c/s/N/V/D/TURCIOS/cp/skin rash/confusion/dizziness/focal limb weakness v/s revd PE tired appearing anicteric ns1s2 mod bs soft nd; minimal tenderness in abdomen; PD catheter in place; no surrounding erythema skin dry n. affect a&ox3; no leg edema labs/meds revd A/P: 69yoF UTI- IV abx Suprapubic pain- empiric ABX Severe anemia- transfuse 2 units PRBC with improvement ESRD on PD- per nephro DM2- hab1c/lipids Calciphylaxis- Obesity- 1/2 portion sizes BMI 33- as above Cardiomegaly Cholelithiasis Left adnexa lesion Hypertensive heart ds- home meds Prop: scd Dispo; 916 labs revd; UTI- cont IV abx; does not have peritonitis; continue treatment of suprapubic discomfort; cont PD. 9- f/u labs this am; Left Adnexal lesion- check U/S. if negative, d/c home on antibiotics; Echo = severe LVH; diastolic filling abn; LVEF normal. CHAYO ZAYAS MD, PHD.
[2020-01-30 05:55] LABS: BASOPHILS % 0.3 % (0.0-1.0); EOSINOPHILS # (AUTO) 0.3 (0.0-0.4); EOSINOPHILS % 2.7 % (0.0-6.0); HEMATOCRIT 24.2 % (34.2-44.1); HEMOGLOBIN 7.7 g/dL (12.0-16.0); LYMPHOCYTES # (AUTO) 1.4 (1.0-3.2); LYMPHOCYTES % 12.5 % (18.0-39.1); MEAN CORPUSCULAR HEMOGLOBIN 26.9 pg (28-32); MEAN CORPUSCULAR HGB CONC 31.8 g/dL (31-35); MEAN CORPUSCULAR VOLUME 84.6 fL (81-99); MONOCYTES # (AUTO) 0.6 (0.2-0.8); MONOCYTES % 5.3 % (4.4-11.3); NEUTROPHILS % 78.5 % (38.7-80.0); PLATELET COUNT 239 x10e3/uL (140-360); RED BLOOD COUNT 2.86 x10e6/uL (3.6-5.1); RED CELL DISTRIBUTION WIDTH 17.2 % (11.7-14.4)
[2020-01-30] MEDS: PIPERACILLIN/TAZO 2.25 GM 50 ML IV SCH ×3 (06:03→22:20)
[2020-01-30 06:13] LABS: ANION GAP 22.1 mmol/L (8-16); CALCIUM 7.4 mg/dL (8.4-10.2); CREATININE, SERUM 7.08 mg/dL (0.57-1.11); POTASSIUM 3.1 mmol/L (3.5-5.1)
[2020-01-30] MEDS: INSULIN LISPRO 100 UNIT/1 ML 3ML VIAL SQ SCH ×4 (07:30→20:35)
[2020-01-30] MEDS: ONDANSETRON HCL INJ 2MG/ML 2ML 2 MG/ML VIAL IV PRN ×2 (08:22→12:29)
[2020-01-30] MEDS: POTASSIUM CHLORIDE 20 MEQ TAB CR PO SCH (08:41)
[2020-01-30] MEDS: CALCITRIOL 0.25 MCG CAP PO SCH (08:41)
[2020-01-30] MEDS: HYDRALAZINE HCL 100 MG TABLET PO SCH (08:41)
[2020-01-30] MEDS: AMITRIPTYLINE HCL 25 MG TAB PO SCH (08:41)
[2020-01-30] MEDS: MORPHINE SULFATE INJ 4 MG/ML INJ 1ML IV PRN ×3 (08:43→22:20)
[2020-01-30] MEDS: FUROSEMIDE 40 MG TAB PO SCH (08:50)
[2020-01-30] MEDS: BACITRACIN ZINC 15 GM OINT TOP SCH (08:50)
--- NOTE | 2020-01-30 14:06 | Progress Note ---
DATE: 01/30/2020 Nephrology Progress Note SUBJECTIVE: Followed up for end-stage kidney disease, on nightly peritoneal dialysis. Ultrafiltration last night was 498 mL net. The patient seems to be somewhat better, though still has the lower abdominal pain. PHYSICAL EXAMINATION: VITAL SIGNS: Blood pressure 105/58, afebrile, and oxygen saturation 99% on room air. NECK: Without JVP. RESPIRATORY: Bilateral air entry, in no distress. No wheezing. CARDIOVASCULAR: Normal S1, S2. ABDOMEN: Soft, nondistended, tender in the lower area. No rebound or tenderness. EXTREMITIES: Without pitting edema or cyanosis. NEUROLOGICAL: Alert and oriented x3. LABORATORY DATA: Hemoglobin 7.7, white count 11.4, and normal platelets. Serum chemistry significant for low potassium of 3.1 and magnesium 1.4. IMPRESSION AND PLAN: 1. End-stage kidney disease, continue nightly cycler-assisted peritoneal dialysis tonight with 1.5% alternating with 2.5%, 2 L exchanges x4. 2. Hypokalemia, increase daily oral replacement to 40 mEq p.o. 3. Hypomagnesemia, we will replace with IV magnesium sulfate 2 g. 4. Anemia secondary to chronic kidney disease, with acute loss. Status post 2 unit packed red blood cell transfusion in hospital. 5. We will continue erythropoietin stimulating agent. 6. Lower abdominal discomfort, etiology not clear. Ultrasound planned to evaluate the adnexal mass better. She is empirically on IV Zosyn. Barrett Garay MD [facility]/MODL /[id number]
[2020-01-30] MEDS: HYDROCODONE/APAP 7.5MG-325MG 1 EA TAB PO PRN (17:54)
--- NOTE | 2020-01-30 18:14 | Diagnostic Imaging Report ---
EXAM: Transabdominal Pelvic Ultrasound INDICATION: Left adnexal cystic lesion , status post hysterectomy. COMPARISON: None TECHNIQUE: Grayscale transverse and sagittal transabdominal images were obtained of the pelvis. Transvaginal imaging could not be performed, as the patient was unable to tolerate exam CLINICAL HISTORY: 69 year old G7, P7; last menstrual period: Postmenopausal. FINDINGS: Uterus: Absent. Right ovary: Not visualized. Obscured by overlying bowel gas. Left ovary: Not visualized. Obscured by overlying bowel gas. Adnexa: Normal. No focal lesions are noted. Cul-de-sac: No free fluid IMPRESSION: 1. Limited exam, as transvaginal portion could not be performed, per patient's request. 2. Status post hysterectomy. Ovaries could not be visualized due to overlying bowel gas. Signed by: Dr. Rene Burnett M.D. on 01/30/2020 6:10 PM
--- NOTE | 2020-01-30 18:22 | NUR ---
Ultrasound results called to Dr Alvares, informed MD of patient's pain. Also informed MD that patient has vomited after every meal. No new orders received, MD requesting patient's pharmacy number at this time.
[2020-01-30] MEDS: ATORVASTATIN 40 MG TAB PO SCH (20:37)
[2020-01-31 00:03] VITALS: BP 116/58
[2020-01-31 04:16] VITALS: BP 114/60
--- NOTE | 2020-01-31 04:34 | NUR ---
D/C summary Principal Dx: UTI- IV abx Suprapubic pain- empiric ABX Severe anemia- transfuse 2 units PRBC with improvement Left adrenal lesion- needs vaginal U/S- pt refused; transabdominal U/S unclear due to bowel gas Secondary Dx: ESRD on PD- per nephro DM2- hab1c/lipids Calciphylaxis- Obesity- 1/2 portion sizes BMI 33- as above Cardiomegaly Cholelithiasis Left adnexa lesion Hypertensive heart ds- home meds Prop: scd Dispo; 01-28 labs revd; UTI- cont IV abx; does not have peritonitis; continue treatment of suprapubic discomfort; cont PD. 01-29 f/u labs this am; Left Adnexal lesion- check U/S. if negative, d/c home on antibiotics; Echo = severe LVH; diastolic filling abn; LVEF normal. 9-18 U/S limited; tranabdominal limited by bowel gas; pt refused transvaginal U/S. suprapubic pain gone after UTI treated; d/c home. d/c home stable f/u pcp 2 days and nephrology 1 week d/c>35mins CHAYO ZAYAS MD, PHD.
[2020-01-31] MEDS ORDERED: KEFLEX500 MG PO (04:36)
[2020-01-31 05:14] LABS: BASOPHILS # (AUTO) 0.1 (0.0-0.1); BASOPHILS % 0.5 % (0.0-1.0); EOSINOPHILS # (AUTO) 0.3 (0.0-0.4); EOSINOPHILS % 2.3 % (0.0-6.0); HEMATOCRIT 24.5 % (34.2-44.1); LYMPHOCYTES # (AUTO) 1.1 (1.0-3.2); LYMPHOCYTES % 8.7 % (18.0-39.1); MEAN CORPUSCULAR HEMOGLOBIN 28.6 pg (28-32); MEAN CORPUSCULAR HGB CONC 32.7 g/dL (31-35); MEAN CORPUSCULAR VOLUME 87.5 fL (81-99); MONOCYTES # (AUTO) 0.7 (0.2-0.8); MONOCYTES % 5.5 % (4.4-11.3); NEUTROPHILS # (AUTO) 9.9 (2.1-6.9); NEUTROPHILS % 82.4 % (38.7-80.0); PLATELET COUNT 239 x10e3/uL (140-360); RED CELL DISTRIBUTION WIDTH 17.2 % (11.7-14.4)
[2020-01-31 05:31] LABS: ANION GAP 20.3 mmol/L (8-16); CALCIUM 7.5 mg/dL (8.4-10.2); CREATININE, SERUM 6.76 mg/dL (0.57-1.11); POTASSIUM 3.3 mmol/L (3.5-5.1)
[2020-01-31] MEDS: PIPERACILLIN/TAZO 2.25 GM 50 ML IV SCH (05:55)
[2020-01-31] MEDS: MORPHINE SULFATE INJ 4 MG/ML INJ 1ML IV PRN (06:00)
[2020-01-31] MEDS: INSULIN LISPRO 100 UNIT/1 ML 3ML VIAL SQ SCH (07:30)
--- NOTE | 2020-01-31 07:55 | NUR ---
CALLED MELL RAMIREZ AT [phone] AND CONFIRMED THIS IS THE [facility] FOR PT, [facility] OVER THE PD SIDE IS NOT IN YET, BUT WILL FOLLOW UP TO LET KNOW SHE IS DISCHARGING TODAY.
[2020-01-31 08:00] VITALS: BP 113/53
[2020-01-31] MEDS: BACITRACIN ZINC 15 GM OINT TOP SCH (08:20)
[2020-01-31] MEDS: HYDRALAZINE HCL 100 MG TABLET PO SCH (08:20)
[2020-01-31] MEDS: CALCITRIOL 0.25 MCG CAP PO SCH (08:20)
[2020-01-31] MEDS: AMITRIPTYLINE HCL 25 MG TAB PO SCH (08:20)
[2020-01-31] MEDS: FUROSEMIDE 40 MG TAB PO SCH (08:20)
--- NOTE | 2020-01-31 08:59 | NUR ---
SPOKE WITH [facility], FAXED CLINICALS [phone], SHE WOULD LIKE DISCHARGE SUMMARY WHEN AVAILABLE.
[2020-01-31 09:00] VITALS: BP 113/53
[2020-01-31] MEDS ORDERED: POTASSIUM CHLORIDE 20 MEQ TAB CR PO SCH (09:00)
--- NOTE | 2020-01-31 09:32 | NUR ---
EDUCATED ABOUT IMM, SIGNED, FILED IN CHART, WITH COPY LEFT WITH FAMILY AT BEDSIDE.
== END 2020-01-31 11:05 | disposition home or self-care (01) | DRG 689 ==
LOC: ER 11:14 → ERHOLD 11:17 → IMCU 16:45
PROVIDERS: ADMIT Internal Medicine; ATTEND Internal Medicine
PROC: 30233N1 Transfusion of Nonautologous Red Blood Cells into Peripheral Vein, Percutaneous Approach (ICD-10-PCS; principal; 2020-01-27)
PROC: 3E1M39Z Irrigation of Peritoneal Cavity using Dialysate, Percutaneous Approach (ICD-10-PCS; 2020-01-27)
PROC: 3E1M39Z Irrigation of Peritoneal Cavity using Dialysate, Percutaneous Approach (ICD-10-PCS; 2020-01-28)
PROC: 3E1M39Z Irrigation of Peritoneal Cavity using Dialysate, Percutaneous Approach (ICD-10-PCS; 2020-01-29)
PROC: 3E1M39Z Irrigation of Peritoneal Cavity using Dialysate, Percutaneous Approach (ICD-10-PCS; 2020-01-30)
DX: N39.0 Urinary tract infection, site not specified (principal); N18.6 End stage renal disease; D62 Acute posthemorrhagic anemia; I13.11 Hypertensive heart and chronic kidney disease without heart failure, with stage 5 chronic kidney disease, or end stage renal disease; Z99.2 Dependence on renal dialysis; D63.1 Anemia in chronic kidney disease; E11.22 Type 2 diabetes mellitus with diabetic chronic kidney disease; E83.59 Other disorders of calcium metabolism; E11.42 Type 2 diabetes mellitus with diabetic polyneuropathy; Z83.3 Family history of diabetes mellitus; Z82.49 Family history of ischemic heart disease and other diseases of the circulatory system; R53.81 Other malaise; E66.9 Obesity, unspecified; Z68.33 Body mass index [BMI] 33.0-33.9, adult; K80.20 Calculus of gallbladder without cholecystitis without obstruction; E83.42 Hypomagnesemia; E27.9 Disorder of adrenal gland, unspecified; R19.09 Other intra-abdominal and pelvic swelling, mass and lump
CPT/HCPCS: 36415; 36555; 36600; 71045; 74176; 76856; 80048; 80053; 80061; 81001; 82550; 82553; 82805; 82948; 83036; 83605; 83690; 83735; 83880; 84484; 85025; 85610; 86850; 86900; 86920; 87040; 87070; 87205; 89051; 93005; 93306; 99251; 99285; J2270; J2405; J2543; J3480; J7030; J7050; P9016; U0002

== ENCOUNTER 2020-02-01 11:55 | Inpatient (IN) | payer MEDICARE ==
[2020-02-01] VITALS (8 sets, daily range): BP systolic 110–163; BP diastolic 54–82
[~2020-02-01] VITALS: Ht 190.5 cm; Wt 83.9 kg
[~2020-02-01 11:55] MED LIST: AMITRIPTYLINE H25 MG PO; ATORVASTATIN CA20 MG PO; CALCITRIOL0.5 MCG PO; FUROSEMIDE40 MG PO; GLIPIZIDE5 MG PO; HYDRALAZINE HCL10 MG PO; KEFLEX500 MG PO; METFORMIN HCL500 MG PO; POTASSIUM CHLO20 ME1 PO
[2020-02-01] MEDS ORDERED: DIATRIZOATE MEGL/DIATRIZOA SOD 30 ML BTL PO ONE (12:39)
[2020-02-01] MEDS ORDERED: MORPHINE SULFATE 2 MG/ML SYR 1ML IV NR (12:45)
[2020-02-01] MEDS ORDERED: ONDANSETRON HCL INJ 2MG/ML 2ML 2 MG/ML VIAL IV NR (12:45)
[2020-02-01 12:56] LABS: BASOPHILS # (AUTO) 0.1 (0.0-0.1); BASOPHILS % 0.4 % (0.0-1.0); EOSINOPHILS # (AUTO) 0.2 (0.0-0.4); EOSINOPHILS % 1.2 % (0.0-6.0); HEMATOCRIT 29.3 % (34.2-44.1); HEMOGLOBIN 9.1 g/dL (12.0-16.0); LYMPHOCYTES # (AUTO) 0.9 (1.0-3.2); LYMPHOCYTES % 5.8 % (18.0-39.1); MEAN CORPUSCULAR HEMOGLOBIN 27.1 pg (28-32); MEAN CORPUSCULAR HGB CONC 31.1 g/dL (31-35); MEAN CORPUSCULAR VOLUME 87.2 fL (81-99); MONOCYTES # (AUTO) 0.9 (0.2-0.8); MONOCYTES % 5.6 % (4.4-11.3); NEUTROPHILS # (AUTO) 13.5 (2.1-6.9); NEUTROPHILS % 86.2 % (38.7-80.0); PLATELET COUNT 341 x10e3/uL (140-360); RED BLOOD COUNT 3.36 x10e6/uL (3.6-5.1); RED CELL DISTRIBUTION WIDTH 17.2 % (11.7-14.4)
[2020-02-01 13:06] LABS: INR 1.28; PROTHROMBIN TIME 16.6 seconds (11.9-14.5)
[2020-02-01 13:07] LABS: PARTIAL THROMBOPLASTIN TIME 37.1 seconds (23.8-35.5)
[2020-02-01] MEDS ORDERED: VANCOMYCIN 1GM/NS 250 ML 250 ML IV ONE (13:15)
[2020-02-01] MEDS ORDERED: CEFEPIME 1GM/NS 0.9% 50 ML 50 ML IV ONE (13:15)
[2020-02-01 13:16] LABS: ALBUMIN 2.5 g/dL (3.5-5.0); ALBUMIN/GLOBULIN RATIO 0.7 (0.8-2.0); ANION GAP 27.5 mmol/L (8-16); CREATININE, SERUM 8.69 mg/dL (0.57-1.11)
[2020-02-01 13:18] LABS: POTASSIUM 4.5 mmol/L (3.5-5.1)
[2020-02-01 13:23] LABS: CREATINE KINASE MB 1.1 ng/mL (0-5.0)
[2020-02-01] MEDS ORDERED: DEXTROSE 50% SYRINGE 50 ML IV ONE (13:28)
[2020-02-01] MEDS ORDERED: DEXTROSE 5% 1,000 ML IV ONE (13:30)
[2020-02-01] MEDS ORDERED: DEXTROSE 50% SYRINGE 50 ML IV STA (13:40)
[2020-02-01] MEDS ORDERED: DEXTROSE 50% SYRINGE 50 ML IV PRN (13:45)
[2020-02-01] MEDS ORDERED: MORPHINE SULFATE 2 MG/ML SYR 1ML IV PRN (13:45)
[2020-02-01] MEDS ORDERED: DEXTROSE 50% SYRINGE 50 ML IV NR (14:00)
--- NOTE | 2020-02-01 14:10 | NUR ---
PATIENT DOES NOT NEED TO BE RESWABBED FOR COVID PER [employer]
--- NOTE | 2020-02-01 14:13 | Diagnostic Imaging Report ---
EXAMINATION: CHEST SINGLE (PORTABLE) INDICATION: ^abd pain ^[id number] ^1234 COMPARISON: Chest radiograph 01/27/2020 FINDINGS: TUBES and LINES: None. LUNGS: Normal lung volumes. Lungs are clear. No consolidations. PLEURA: No pleural effusion or pneumothorax. HEART AND MEDIASTINUM: Unchanged mild enlarged cardiac silhouette. BONES AND SOFT TISSUES: No acute osseous lesion. Soft tissues are unremarkable. UPPER ABDOMEN: No free air under the diaphragm. IMPRESSION: 1. No acute thoracic radiographic abnormality. 2. Unchanged cardiomegaly. Signed by: Dr. Ishmael Garcia M.D. on 02/01/2020 2:10 PM
--- NOTE | 2020-02-01 14:50 | Emergency Department Note ---
History of Present Illnes History of Present Illness Chief Complaint: General Medicine Complaints History of Present Illness This is a 69 year old female pt brought in by daughter for abdominal pain, generalized pain and weakness, pt was just released from the hospital yesterday, treated for anemia and was given blood while admitted, pt noticed to have bruising to the lower extremities that is painful to touch, pt states that the bruising started 3 months ago. Historian: Patient, Family Member Arrival Mode: Car Piece Marker Small Arms Required: No Onset (how long ago): day(s) (pt just discharged from hospital here yesterday, pain worse) Location: lower abd, LE's Quality: pain Radiation: Reports non-radiation Severity: severe Onset quality: gradual Timing of current episode: constant Progression: worsening Chronicity: recurrent Context: Reports recent illness Relieving factors: none Exacerbating factors: none Associated symptoms: Reports weakness; Denies chest pain, Denies cough Treatments prior to arrival: none Past Medical/Family History Physician Review I have reviewed the patient's past medical and family history. Any updates have been documented here. Past Medical History Recent Fever: No Clinical Suspicion of Infectio: No New/Unexplained Change in Ment: No Past Medical History: Hypertension, Diabetes, Anemia Other Medical History: ESRD Past Surgical History: Other Surgery: peritoneal catheter Social History Smoking Cessation: Never Smoker Counseling Performed: No Alcohol Use: None Any Illegal Drug Use: No TB Exposure/Symptoms: No Physically hurt or threatened: No Family History Family history of heart diseas: No Other Any Pre-Existing Lines (PICC,: No Review of Systems Review of Systems Constitutional: Reports no symptoms EENTM: Reports no symptoms Cardiovascular: Reports no symptoms Respiratory: Reports no symptoms Gastrointestinal: Reports as per HPI Genitourinary: Reports no symptoms Musculoskeletal: Reports as per HPI Integumentary: Reports as per HPI Neurological: Reports no symptoms Psychological: Reports no symptoms Endocrine: Reports no symptoms Hematological/Lymphatic: Reports no symptoms Physical Exam Related Data Allergies: Coded Allergies: No Known Allergies (Unverified , 01/27/20) Triage Vital Signs Vital Signs Date Time Temp Pulse Resp B/P (MAP) Pulse Ox O2 Delivery O2 Flow Rate FiO2 02/01/20 12:06 98.9 104 24 119/57 97 Room Air Vital signs reviewed: Yes Physical Exam CONSTITUTIONAL Constitutional: Present well-developed, Present well-nourished HENT HENT: Present normocephalic, Present atraumatic, Present oropharynx clear/moist, Present nose normal HENT L/R: Present left ext ear normal, Present right ext ear normal EYES Eyes: Reports PERRL, Reports conjunctivae normal NECK Neck: Present ROM normal PULMONARY Pulmonary: Present effort normal, Present breath sounds normal CARDIOVASCULAR Cardiovascular: Present regular rhythm, Present heart sounds normal, Present capillary refill normal, Present normal rate GASTROINTESTINAL Abdominal: Present soft, Present bowel sounds normal, Present tender (SUPRAPUBIC AND BILAT LOWER QUADRANTS) GENITOURINARY Genitourinary: Present exam deferred SKIN Skin: Present lesion (MULTIPLE FIRM RAISED LESIONS ON BILAT LE'S WITH ECCHYMOSES AND THE PLAQUE ON RIGHT UPPER LATERAL THIGH HAS 2 SMALL AREAS OF NECROSIS - C/W CALCIPHYLAXIS) MUSCULOSKELETAL Musculoskeletal: Present ROM normal NEUROLOGICAL Neurological: Present alert, Present oriented x 3, Present no gross motor or sensory deficits PSYCHOLOGICAL Psychological: Present mood/affect normal, Present judgement normal Results Laboratory Result Diagram: 02/01/20 1235 02/01/20 1235 Laboratory Laboratory Tests Test 02/01/20 14:09 02/01/20 12:35 Bedside Glucose 122 mg/dL (70-120) White Blood Count 15.61 x10e3/uL (4.8-10.8) Red Blood Count 3.36 x10e6/uL (3.6-5.1) Hemoglobin 9.1 g/dL (12.0-16.0) Hematocrit 29.3 % (34.2-44.1) Mean Corpuscular Volume 87.2 fL (81-99) Mean Corpuscular Hemoglobin 27.1 pg (28-32) Mean Corpuscular Hemoglobin Concent 31.1 g/dL (31-35) Red Cell Distribution Width 17.2 % (11.7-14.4) Platelet Count 341 x10e3/uL (140-360) Neutrophils (%) (Auto) 86.2 % (38.7-80.0) Lymphocytes (%) (Auto) 5.8 % (18.0-39.1) Monocytes (%) (Auto) 5.6 % (4.4-11.3) Eosinophils (%) (Auto) 1.2 % (0.0-6.0) Basophils (%) (Auto) 0.4 % (0.0-1.0) Neutrophils # (Auto) 13.5 (2.1-6.9) Lymphocytes # (Auto) 0.9 (1.0-3.2) Monocytes # (Auto) 0.9 (0.2-0.8) Eosinophils # (Auto) 0.2 (0.0-0.4) Basophils # (Auto) 0.1 (0.0-0.1) Absolute Immature Granulocyte (auto 0.12 x10e3/uL (0-0.1) Prothrombin Time 16.6 seconds (11.9-14.5) Prothromb Time International Ratio 1.28 Activated Partial Thromboplast Time 37.1 seconds (23.8-35.5) Sodium Level 138 mmol/L (136-145) Potassium Level 4.5 mmol/L (3.5-5.1) Chloride Level 97 mmol/L (98-107) Carbon Dioxide Level 18 mmol/L (22-29) Anion Gap 27.5 mmol/L (8-16) Blood Urea Nitrogen 57 mg/dL (7-26) Creatinine 8.69 mg/dL (0.57-1.11) Estimat Glomerular Filtration Rate 5 ML/MIN (60-) BUN/Creatinine Ratio 7 (6-25) Glucose Level 44 mg/dL (74-118) Lactic Acid Level 1.6 mmol/L (0.5-2.0) Calcium Level 8.0 mg/dL (8.4-10.2) Total Bilirubin 0.5 mg/dL (0.2-1.2) Aspartate Amino Transf (AST/SGOT) 14 IU/L (5-34) Alanine Aminotransferase (ALT/SGPT) 12 IU/L (0-55) Alkaline Phosphatase 114 IU/L (40-150) Creatine Kinase 13 IU/L (29-168) Creatine Kinase MB 1.10 ng/mL (0-5.0) Troponin I 0.105 ng/mL (0-0.300) Total Protein 6.0 g/dL (6.5-8.1) Albumin 2.5 g/dL (3.5-5.0) Globulin 3.5 g/dL (2.3-3.5) Albumin/Globulin Ratio 0.7 (0.8-2.0) Lab results reviewed: Yes Imaging Imaging results reviewed: Yes Procedures 12 Lead ECG Interpretation ECG Interpretation : ECG: ECG 1 Piece Marker Small Arms: Interpreted by ED physician Date: Feb 01, 2020 Time: 12:06 Rhythm: sinus tachycardia (WITH PAC'S) Rate: normal (109) QRS axis: normal ST segments normal: Yes T waves normal: Yes Clinical Impression: abnormal ECG Additional Comments POOR RWP Critical Care Time Total Critical Care Time (min): 30 Critical care time exclusive o: separately billable procedures Critcal care necessary due to: renal failure, other Critcal care time spent by me: discussion w consultants, discussion w primary provider, obtaining hx from patient/surrogate, order/perform tx or interventions, order/review laboratory studies, order/review radiographic studies, re-evaluation of patient condition, review of old charts Assessment & Plan Medical Decision Making MDM ABD PAIN IN PD PATIENT, BLE PAIN (I THINK THIS IS DUE TO CALCIPHYLAXIS LESIONS) - CBC, CHEM, ECG, CARDIACS, BLOOD CX'S, CT ABD/PELVIS - EVAL FOR LEUKOCYTOSIS, UTI, PERITONITIS, STEMI/NSTEMI. Reassessment Reassessment I SPOKE WITH DR VAZQUEZ - HE WILL HAVE PD NURSE COME AND GET CX FROM [facility], WANTS ABX'S STARTED. SPOKE WITH DR HERCULES WHO ALSO PT ON LAST ADMISSION, SPOKE WITH DR ZAYAS FOR ADMISSION Assessment & Plan Final Impression: (1) Abdominal pain (2) ESRD on peritoneal dialysis (3) Calciphylaxis (4) 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 Depart Disposition: ADMITTED Last Vital Signs Date Time Temp Pulse Resp B/P (MAP) Pulse Ox O2 Delivery O2 Flow Rate FiO2 02/01/20 14:25 98.4 89 16 158/79 98 Room Air Home Meds Active Scripts Cephalexin Monohydrate (KEFLEX) 500 Mg Capsule, 500 MG PO Q12H, #20 Prov:CHAYO ZAYAS MD 01/31/20 Reported Medications Furosemide (FUROSEMIDE) 40 Mg Tablet, 40 MG PO Daily, #30 TAB 01/27/20 Potassium Chloride (POTASSIUM CHLORIDE) 20 Meq Tab.er.prt, 20 MEQ PO DAILY 01/27/20 Glipizide (GLIPIZIDE) 5 Mg Tablet, 10 MG PO DAILY, TAB 01/27/20 Metformin Hcl (METFORMIN HCL) 500 Mg Tablet, 500 MG PO BID, #60 TAB 01/27/20 Calcitriol (CALCITRIOL) 0.5 Mcg Cap, 0.5 MG PO DAILY, CAP 01/27/20 Atorvastatin Calcium (ATORVASTATIN CALCIUM) 20 Mg Tablet, 40 MG PO HS, #30 TAB 01/27/20 Amitriptyline Hcl (AMITRIPTYLINE HCL) 25 Mg Tablet, 25 MG PO DAILY, #30 TAB 01/27/20 Hydralazine Hcl (HYDRALAZINE HCL) 10 Mg Tablet, 50 MG PO DAILY, #30 TAB 01/27/20 Medications in the ED Morphine Sulfate 2 mg ONCE IV Last administered on 02/01/20at 13:39; Admin Dose 2 MG; Start 02/01/20 at 12:45; Stop 02/01/20 at 13:59; Status DC Ondansetron HCl 4 mg ONCE IV Last administered on 02/01/20at 13:39; Admin Dose 4 MG; Start 02/01/20 at 12:45; Stop 02/01/20 at 13:59; Status DC Diatrizoate Meglum/ Diatrizoate Sod 30 ml STK-MED ONCE PO ; Start 02/01/20 at 12:39; Stop 02/01/20 at 12:32; Status DC Cefepime HCl 50 ml @ 100 mls/hr NOW ONCE IV Last administered on 02/01/20at 13:30; Admin Dose 100 MLS/HR; Start 02/01/20 at 13:15; Stop 02/01/20 at 13:44; Status DC Vancomycin HCl 250 ml @ 200 mls/hr NOW ONCE IV Last administered on 02/01/20at 13:30; Admin Dose 200 MLS/HR; Start 02/01/20 at 13:15; Stop 02/01/20 at 14:29; Status DC Dextrose 50 ml STK-MED ONCE IV ; Start 02/01/20 at 13:28; Stop 02/01/20 at 1 3:21; Status DC Dextrose 1,000 ml @ 75 mls/hr [id number] ONCE IV ; Start 02/01/20 at 13:30; Stop 02/02/20 at 02:49 Dextrose 50 ml NOW STAT IV Last administered on 02/01/20at 13:30; Admin Dose 50 ML; Start 02/01/20 at 13:40; Stop 02/01/20 at 13:47; Status DC BOBY BOJORQUEZ MD Feb 01, 2020 14:50
[2020-02-01 15:17] LABS: CLARITY,URINE SL CLOUDY (CLEAR); COLOR,URINE YELLOW (YELLOW)
[2020-02-01 15:18] LABS: BILIRUBIN,URINE NEGATIVE (NEGATIVE); KETONES,URINE NEGATIVE (NEGATIVE); LEUKOCYTE ESTERASE ,URINE LARGE (NEGATIVE); NITRITE,URINE NEGATIVE (NEGATIVE); PROTEIN,URINE DIPSTICK 1+ (NEGATIVE); URINE UROBILINOGEN 0.2 mg/dL (0.2 - 1)
[2020-02-01 15:24] LABS: BACTERIA,URINE RARE /HPF; EPITHELIAL CELLS,URINE FEW /LPF
--- NOTE | 2020-02-01 15:24 | Diagnostic Imaging Report ---
EXAM: CT Abdomen and Pelvis WITHOUT contrast INDICATION: ^lower abd pain ^[id number] ^1401 ^Y COMPARISON: CT abdomen/pelvis 01/27/2020 TECHNIQUE: Abdomen and pelvis were scanned utilizing a multidetector helical scanner from the lung base to the pubic symphysis without administration of IV contrast. Absence of intravenous contrast decreases sensitivity for detection of focal lesions and vascular pathology. Coronal and sagittal reformations were obtained. Routine protocol was performed. IV CONTRAST: None ORAL CONTRAST: Gastrografin COMPLICATIONS: None RADIATION DOSE: Total DLP: 708.44 mGy*cm Estimated effective dose: (DLP x 0.015 x size factor) mSv CTDIvol has been reviewed. It is below the limits set by the Radiation Protocol Committee (RPC). Dose modulation, iterative reconstruction, and/or weight based adjustment of the mA/kV was utilized to reduce the radiation dose to as low as reasonably achievable. FINDINGS: LINES and TUBES: Unchanged position of peritoneal dialysis catheter which coils within the pelvis. LOWER THORAX: Lung bases are clear. Atherosclerotic calcifications throughout the visualized coronary arteries. Otherwise remaining visualized portions of inferior mediastinum are unremarkable given lack of IV contrast. HEPATOBILIARY: Hepatic size and attenuation are within normal limits. Small amount of perihepatic fluid layering beneath the right hemidiaphragm. No focal hepatic lesions given limitations with lack of IV contrast. No biliary ductal dilation. GALLBLADDER: Redemonstrated gallbladder distention with no radiopaque stones or sludge. Questionable gallbladder wall thickening. SPLEEN: No splenomegaly. PANCREAS: No focal masses or ductal dilatation. ADRENALS: No adrenal nodules KIDNEYS/URETERS: Bilateral renal atrophy. No hydronephrosis. No cystic or solid mass lesions given limitations with lack of IV contrast. No stones. GI TRACT: No abnormal distention, wall thickening, or evidence of bowel obstruction. Enteric contrast extends to the distal small bowel. Few scattered colonic diverticula without evidence of acute diverticulitis. Appendix is normal. PELVIC ORGANS/BLADDER: Status post hysterectomy. Redemonstrated left adnexal cystic lesion measuring up to 3.3 cm. Urinary bladder is grossly unremarkable given suboptimal distention. LYMPH NODES: No lymphadenopathy. VESSELS: Diffuse episodic calcifications of the abdominal and pelvic arteries. Further evaluation limited by lack of IV contrast. PERITONEUM / RETROPERITONEUM: Small amount of perihepatic free fluid as described above. Additional small amount of fluid layering within the pelvis, likely related to peritoneal dialysis. BONES: No acute osseous abnormality mild multilevel degenerative changes of the thoracolumbar spine. SOFT TISSUES: Mild soft tissue edema layering along the dependent left flank and bilateral hips. IMPRESSION: 1. Redemonstrated gallbladder distention with no radiopaque stones or sludge. Questionable gallbladder wall thickening. Recommend correlation with lab values and if clinical concern for acute cholecystitis persists, consider further evaluation with gallbladder ultrasound. 2. Small amount of nonspecific perihepatic fluid, may be related to peritoneal dialysis or gallbladder pathology. 3. Redemonstrated left adnexal 3.3 cm cystic lesion. Lesion was not visualized on prior pelvic ultrasound, consider repeat nonemergent follow-up outpatient pelvic ultrasound. Signed by: Dr. Ishmael Garcia M.D. on 02/01/2020 3:20 PM
--- NOTE | 2020-02-01 18:16 | Consultation ---
DATE OF CONSULTATION: 02/01/2020 Nephrology Consultation REASON FOR CONSULTATION: End-stage kidney disease, on peritoneal dialysis. HISTORY OF PRESENT ILLNESS: This is a pleasant 69-year-old female, who speaks very little Qatari. Her daughter is at her bedside, who does speak Qatari. The patient was brought in today by daughter, who noted her to be confused since her discharge from hospital within the last 48 hours. The patient was then admitted for mostly lower abdominal pain, but had no evidence of peritonitis. She was treated empirically with antibiotics and a CT scan and ultrasound had shown an adnexal or ovarian cyst. Peritoneal fluid had only shown 4 white blood cells and the fluid was clear. The patient was also treated with IV pain medications for what appears to be calciphylaxis, mostly around her upper thighs. According to daughter, the patient did not do her peritoneal dialysis last night because of her confused state. She has continued to have pain in the skin lesions. However, there was no noticeable fever, chills, vomiting, or diarrhea. Today in the ER, her white count was noted to be higher than during recent hospitalization. However, she remains afebrile. PAST MEDICAL HISTORY: Diabetes mellitus, end-stage kidney disease, anemia, skin lesions, which have been evaluated by hay chopper and labeled as likely calciphylaxis. Treated with pain medications. Hypertension. FAMILY HISTORY: Noncontributory. SOCIAL HISTORY: No alcohol or recreational drug use. Her daughter lives with her. REVIEW OF SYSTEMS: Negative except as noted above in HPI. PHYSICAL EXAMINATION: GENERAL: The patient is alert and oriented, in [id number] overall distress. VITAL SIGNS: Stable. Blood pressure 158/79, respirations 16 per minute, pulse 89 per minute. She is afebrile. Oxygen saturation normal on room air. SKIN: Normal turgor. However, she does have several areas of indurated skin with some areas of ulceration around both upper thighs (calciphylaxis). No secondary infection. HEENT: Normocephalic, atraumatic head. External ocular movement intact. No icterus. NECK: Supple without jugular venous distention. LUNGS: Respirations clear to auscultation anterolaterally. No wheezing or crepitations. CARDIOVASCULAR: Normal S1, S2 without murmur, rub, or gallop. ABDOMEN: Soft, depressible and mostly nontender, except for a very localized area in the suprapubic region. I do not feel any induration in the skin or see any lesions in the area. EXTREMITIES: No edema or cyanosis distally. NEUROLOGIC: She is alert and oriented. No obvious focal deficit. Chest x-ray, no acute findings. Abdomen and pelvis CT is done, report pending. LABORATORY DATA: White count is up to 15.6 with 86% neutrophils, 5.8% lymphocytes; hemoglobin 9.1, platelet count normal. Serum chemistries show a low bicarb of 18, BUN 57, creatinine 8.69. Sodium 138, potassium 4.5, glucose 44, calcium 8, lactic acid 1.6, albumin 2.5. IMPRESSION: 1. End-stage kidney disease. The patient, on home cycler-assisted peritoneal dialysis. She tolerated her dialysis treatments in the hospital recently and showed no evidence of peritonitis. 2. Acute confusion per her daughter's history. This may be either secondary to an evolving sepsis and/or pain medications that she has been using for her skin lesions. 3. Mild metabolic acidosis, did not dialyze last night due to her overall condition. Should correct with resumption of dialysis. 4. Hypertension, takes hydralazine at home. RECOMMENDATIONS: 1. I have asked the dialysis nurse in the hospital to send a sample of peritoneal fluid for cell count and culture, although clinically she does not have peritonitis. 2. She has already been started on broad-spectrum IV antibiotics with vancomycin and cefepime. 3. Continue pain management for the skin lesions, which look like calciphylaxis. 4. She has persistent suprapubic tenderness, which should be evaluated in the hospital. 5. We will continue gentle nightly cycler-assisted peritoneal dialysis with gentle fluid removal since her oral intake has not been great recently. 6. I will follow the patient and recommend as needed. Thank you for this consultation. Barrett Garay MD [facility]/EMMYL /[id number]
--- NOTE | 2020-02-01 18:26 | Consultation ---
DATE OF CONSULTATION: Pulmonary Critical Care Consultation CHIEF COMPLAINT: Confusion, abdominal pain, and calciphylaxis. HISTORY OF PRESENT ILLNESS: The patient is a 69-year-old woman. She has a history of end-stage renal disease. She receives peritoneal dialysis. She recently required hospitalization at [facility] for anemia with a hemoglobin of 5.6. She received packed red blood cells. 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 She had pain in her lateral thighs bilaterally as well as her posterior heel on the left side. She was also ruled out for peritonitis. She was discharged home yesterday. The family now complains of increased confusion. She also has some increased abdominal pain as well as some muscle pain. When she arrived to the emergency department, she had a low blood sugar. PAST SURGICAL HISTORY: 1. Status post hysterectomy. 2. Status post peritoneal catheter placement. PAST MEDICAL HISTORY: 1. End-stage renal disease. 2. Calciphylaxis. 3. Cystic adnexal mass on the left side. 4. Diabetes. 5. Hypertension. ALLERGIES: NO KNOWN DRUG ALLERGIES. FAMILY HISTORY: Noncontributory. SOCIAL HISTORY: The patient is not a smoker. She is not a drinker. REVIEW OF SYSTEMS: There is a history of confusion. There is no history of fevers. She has no headache. She has no neck pain. She is not complaining of chest pain or dyspnea. She does have some abdominal pain. She has no leg edema. PHYSICAL EXAMINATION: VITAL SIGNS: Blood pressure is 158/79, saturation is 98%, and the pulse is 89. The patient is afebrile. HEENT: Shows no facial swelling or erythema. LYMPHATIC: Shows no submandibular, cervical, or supraclavicular adenopathy. CARDIAC: Reveals regular rate and rhythm with normal S1 and S2. LUNGS: Auscultation of lungs reveals clear breath sounds bilaterally. There is no wheezing. ABDOMEN: Soft. There is some mild tenderness in the suprapubic area. EXTREMITIES: There is no leg edema. LABORATORY DATA: White blood cell count is 15.6 and the hemoglobin is 9.1. The platelet count is 341. The BUN to creatinine ratio is 57 to 8.7 and the carbon dioxide is 18. The other electrolytes are within normal limits. The albumin is 2.5. RADIOGRAPHIC DATA: Chest x-ray shows no active disease. CT scan of the abdomen and pelvis shows a left adnexal mass or cyst. There is also some distention of the gallbladder without any obvious evidence of cholecystitis. IMPRESSION: 1. Hypoglycemia secondary to glipizide. 2. Metabolic encephalopathy. 3. End-stage renal disease. 4. Calciphylaxis with extremity pain. 5. Cystic adnexal lesion on the left side. 6. Hypertension. PLAN: 1. The patient to receive D5 at 75 mL an hour with close monitor of blood sugars. 2. Pain control. 3. The patient to receive some antibiotics until culture results are available. 4. Oxygen as needed. Esteban Bautista MD [facility]/MODL /[id number]
[2020-02-01] MEDS: ATORVASTATIN 20 MG TAB PO SCH (21:00)
[2020-02-01] MEDS: HYDRALAZINE HCL 10 MG TAB PO SCH (21:00)
[2020-02-02] VITALS (16 sets, daily range): BP systolic 81–139; BP diastolic 40–80
[2020-02-02 01:28] LABS: BODY FLUID APPEARANCE CLEAR; BODY FLUID COLOR COLORLESS; BODY FLUID TYPE PERITONEAL
[2020-02-02 01:29] LABS: RBC,BODY FLUID 4 cells/uL
[2020-02-02 01:30] LABS: WBC,BODY FLUID 7 cells/uL
[2020-02-02 05:19] LABS: BASOPHILS # (AUTO) 0.1 (0.0-0.1); BASOPHILS % 0.4 % (0.0-1.0); EOSINOPHILS # (AUTO) 0.4 (0.0-0.4); EOSINOPHILS % 3.1 % (0.0-6.0); HEMATOCRIT 26.3 % (34.2-44.1); HEMOGLOBIN 8.3 g/dL (12.0-16.0); LYMPHOCYTES # (AUTO) 1.6 (1.0-3.2); LYMPHOCYTES % 12.2 % (18.0-39.1); MEAN CORPUSCULAR HEMOGLOBIN 27.2 pg (28-32); MEAN CORPUSCULAR HGB CONC 31.6 g/dL (31-35); MEAN CORPUSCULAR VOLUME 86.2 fL (81-99); MONOCYTES # (AUTO) 1.2 (0.2-0.8); MONOCYTES % 9.3 % (4.4-11.3); NEUTROPHILS % 74.4 % (38.7-80.0); PLATELET COUNT 323 x10e3/uL (140-360); RED BLOOD COUNT 3.05 x10e6/uL (3.6-5.1); RED CELL DISTRIBUTION WIDTH 17.2 % (11.7-14.4)
[2020-02-02 05:57] LABS: LYMPHOCYTES,BODY FLUID 30 %; MONO/MACROPHG,BODY FLUID 5 %; NEUTROPHILS,BODY FLUID 50 %; OTHER CELLS,BODY FLUID 15 %
[2020-02-02 06:15] LABS: ALBUMIN 2.3 g/dL (3.5-5.0); ALBUMIN/GLOBULIN RATIO 0.7 (0.8-2.0); ANION GAP 22.4 mmol/L (8-16); CALCIUM 7.7 mg/dL (8.4-10.2); CREATININE, SERUM 8.36 mg/dL (0.57-1.11); POTASSIUM 4.4 mmol/L (3.5-5.1)
--- NOTE | 2020-02-02 06:24 | NUR ---
H&P cc: abdominal pain HPI: 69yoF, PCP , recently here for severe anemia and transfused 2 units PRBC, also with suprapubic discomfort and UTI, treated with IV abx and oral abx, now representing with fever and worsened suprapubic pain. PMH: DM2, Hypertensive heart ds, ESRD on PD, Calciphalyxis, AOCD, Cardiomegaly, UTI, suprapubic pain, severe anemia s/p 2 units PRBC in , left adrenal lesion PSHx: PD catheter, hysterectomy Allergies; see emr FH/SH: no illicits Meds; see MAR ROS; no f/c/s/N/V/D/TURCIOS/cp/skin rash/confusion/dizziness/focal limb weakness v/s revd PE tired appearing anicteric ns1s2 mod bs soft nd; minimal tenderness in suprapubic region; PD catheter in place; no surrounding erythema; RUQ TENDER; EQUIVOCAL REYES'S SIGN skin dry n. affect a&ox3; no leg edema labs/meds revd A/P: 69yoF UTI- IV abx Gallbladder disease- check HIDA Cholelithiasis- in past; now only GB distention; AOCD- monitor; rec'd 2 units PRBC recently ESRD on PD- per nephro DM2- hab1c/LDL 6.6 Calciphylaxis-supportive; Cardiomegaly- cont BP Left adnexal lesion Hypertensive heart ds- home meds Prop: scd Dispo; f/u HIDA. CHAYO ZAYAS MD, PHD.
[2020-02-02 06:38] LABS: CREATINE KINASE MB 1.9 ng/mL (0-5.0)
[2020-02-02] MEDS ORDERED: CEFEPIME 1GM/NS 0.9% 50 ML 50 ML IV SCH (06:45)
[2020-02-02] MEDS ORDERED: ZOLPIDEM TARTRATE 5 MG TAB PO PRN (06:45)
[2020-02-02] MEDS ORDERED: ACETAMINOPHEN 325 MG TAB PO PRN (06:45)
[2020-02-02] MEDS ORDERED: CALCITRIOL 0.5 MCG CAP PO SCH (09:00)
[2020-02-02] MEDS ORDERED: AMITRIPTYLINE HCL 25 MG TAB PO SCH (09:00)
[2020-02-02] MEDS: HYDRALAZINE HCL 10 MG TAB PO SCH ×2 (09:00→21:19)
[2020-02-02] MEDS: FUROSEMIDE 40 MG TAB PO SCH (09:16)
[2020-02-02] MEDS: CALCITRIOL 0.25 MCG CAP PO SCH (09:17)
--- NOTE | 2020-02-02 10:00 | NUR ---
Pt had one large BM this morning. Pt refusing to eat breakfast tray. Dr. Fei Bautista updated family on patient's status. Pt has downgrade orders for medical surgical floor with telemetry. Dialysis nurse at bedside to disconnect peritoneal dialysis machine. Patient transferred to room 296 with no s/s of distress.
--- NOTE | 2020-02-02 10:50 | NUR ---
ARRIVED TO UNIT AT APPROXIMATELY 1050. ASSUMED CARE. AAOX3. ACYANOTIC. NO DISTRESS NOTED. RESTING IN BED. CALL LIGHT IN REACH. SIDE RAILS UP X2. BED LOW AND LOCKED.
[2020-02-02] MEDS ORDERED: EPOETIN ALFA-EPBX 10,000 UNIT/ML VIAL SC SCH (12:00)
--- NOTE | 2020-02-02 12:03 | Progress Note ---
DATE: SUBJECTIVE: The patient still complains of some dizziness. Her blood sugars have improved after receiving D50 and D5 overnight. Her glipizide has been held. She does have some suprapubic pain. She is scheduled for a HIDA scan today to evaluate her gallbladder. PHYSICAL EXAMINATION: VITAL SIGNS: Blood pressure is 114/66, saturation is 99% and the pulse is 94. HEENT: Shows no facial swelling or erythema. LYMPHATIC: Shows no submandibular, cervical, or supraclavicular adenopathy. CARDIAC: Reveals regular rate and rhythm with normal S1, S2. LUNGS: Auscultation of lungs reveals rhonchorous breath sounds bilaterally. There is no wheezing. ABDOMEN: Soft and nontender. There is no rebound or guarding. EXTREMITIES: Shows no leg edema. LABORATORY DATA: White blood cell count is 13.4, hemoglobin is 8.3, and the platelet count is 323. The BUN to creatinine ratio is 56 to 8.36. Carbon dioxide is 21. IMPRESSION: 1. Hypoglycemia, secondary to glipizide. 2. Metabolic encephalopathy. 3. End-stage renal disease. 4. Calciphylaxis with extremity pain. 5. Distended gallbladder. 6. Ovarian cyst on the left side. PLAN: 1. The patient to go for HIDA scan today. If HIDA scan is positive or there is evidence of cholecystitis, General surgery will be consulted. 2. Continue current antibiotics. 3. Continue to hold glipizide. 4. Continue dialysis as needed according to the Nephrology Service. 5. The patient will need Gynecology consult as an inpatient or possibly as an outpatient. Case discussed with Dr. Alvares, nursing staff, and daughter. Esteban Bautista MD [facility]/EMMYL /[id number]
--- NOTE | 2020-02-02 13:54 | Progress Note ---
DATE: 02/02/2020 Nephrology Follow Up Note SUBJECTIVE: Followup for end-stage kidney disease, on nightly cycler-assisted peritoneal dialysis. Admitted for pain on dermatological lesions as well as confusion. Also, has been complaining of pain and tenderness in the perineal area. OBJECTIVE: VITAL SIGNS: Stable. She is afebrile. PD fluid looked clear. Ultrafiltration recorded at 3.2 L overnight. GENERAL: Alert and oriented x3. NECK: Supple without jugular venous distention. RESPIRATION: Bilateral air entry, without distress. No wheezing heard. CARDIOVASCULAR: Shows normal S1, S2 without rub or gallop. ABDOMEN: Soft, mostly nontender except in the perineal of the suprapubic area where she is exquisitely tender. Peritoneal dialysis exit site looks okay. EXTREMITIES: Without pitting edema or cyanosis. NEUROLOGIC: Alert and oriented. LABORATORY DATA: White count today is 13.3, hemoglobin 8.3, platelet count 323,000. Serum chemistries show creatinine of 8.3, BUN 56, sodium 135, potassium 4.4, bicarb 21. Total calcium 7.7. Albumin 2.3. PD fluid aspirate from yesterday showed only a total of 7 white blood cells and 4 RBCs. IMPRESSION: 1. End-stage kidney disease, we will continue nightly cycler-assisted peritoneal dialysis comprising of four exchanges of 2 L each. Use either all yellow or yellow alternating with green according to volume status. 2. Hypertension, controlled on hydralazine. Continue same. 3. Skin lesions, believed to be calciphylaxis. Continue pain control. 4. Lower abdominal pain and tenderness, recent imaging showed an adnexal/ovarian mass. To be investigated per primary team. Discussed with Dr. Bautista. 5. Anemia secondary to chronic kidney disease. We will place on erythropoietin stimulating agent. Barrett Garay MD [facility]/MODL /[id number]
[2020-02-02] MEDS: HYDROCODONE/APAP 10MG-325MG TAB PO PRN (17:30)
[2020-02-02] MEDS: AMITRIPTYLINE HCL 25 MG TAB PO SCH (21:19)
[2020-02-02] MEDS: ATORVASTATIN 20 MG TAB PO SCH (21:19)
[2020-02-03] VITALS (8 sets, daily range): BP systolic 114–126; BP diastolic 56–78
[2020-02-03 06:46] LABS: FERRITIN 1296.89 ng/mL (4.63-204.00)
--- NOTE | 2020-02-03 06:50 | NUR ---
SBAR BEDSIDE REPORT RECEIVED FROM BHARTI TOUSSAINT, PM SHIFT. PATIENT FOUND RESTING IN BED IN NO ACUTE DISTRESS TALKING ON THE PHONE. PT SPEAKS PRIMARILY TAIWANESE BUT IS ABLE TO CONVERSE IN TURKISH. PT WAS EDUCATED ON FALL RISK PRECAUTIONS AND VERBALIZED UNDERSTANDING. CALL LIGHT AND BELONGINGS PLACED NEARBY. WILL CONTINUE TO MONITOR.
[2020-02-03] MEDS ORDERED: SODIUM THIOSULFATE 25 GM in SODIUM CHLORIDE 0.9% 100 ML 100 ML IV SCH (08:00)
[2020-02-03] MEDS: CALCITRIOL 0.25 MCG CAP PO SCH (09:28)
[2020-02-03] MEDS: FUROSEMIDE 40 MG TAB PO SCH (09:28)
[2020-02-03] MEDS: HYDRALAZINE HCL 10 MG TAB PO SCH ×2 (09:30→21:00)
--- NOTE | 2020-02-03 11:31 | NUR ---
PT OFF THE FLOOR FOR TEST
--- NOTE | 2020-02-03 13:41 | NUR ---
PT BACK TO FLOOR FROM PROCEDURE
--- NOTE | 2020-02-03 13:44 | Progress Note ---
DATE: 02/03/2020 Renal Progress Note SUBJECTIVE: The patient is followed for end-stage renal disease. The patient has a peritoneal dialysis. The patient came in with low abdominal pain. Also pain in her left thigh area, lateral side, likely from the calciphylaxis. She was sent to Dermatology outpatient and they did confirm the diagnosis of calciphylaxis. Lower abdominal pain is also likely from that. The patient was checked for peritonitis, but did not have peritonitis. The patient is currently tolerating peritoneal dialysis prescription. No nausea, no vomiting, no shortness of breath. Still complaining of pain. OBJECTIVE: VITAL SIGNS: Vital signs noted and stable. LUNGS: Clear to auscultation bilaterally. CARDIOVASCULAR: S1, S2. No rub. ABDOMEN: Soft. Positive bowel sounds. EXTREMITIES: No edema. LABORATORY DATA: Have been reviewed. IMPRESSION AND PLAN: 1. End-stage renal disease, we will continue peritoneal dialysis prescription as per her usual peritoneal dialysis orders with four exchanges with 2.5% dextrose,. 2. Hypertension, controlled. 3. Anemia of chronic disease, stable. 4. Calciphylaxis. We will start her on IV sodium thiosulfate 25 g every Monday, Monday, and Monday to see whether or not we see some improvement in her symptoms as well as some improvement in her ulcerations. We will also check her calcium, phosphorus levels and also PTH levels to ensure these are within range. Thank you once again. MD [facility]/MODL /[id number]
[2020-02-03] MEDS: CEFEPIME 1GM/NS 0.9% 50 ML 50 ML IV SCH (13:49)
[2020-02-03] MEDS ORDERED: SODIUM CHLORIDE 0.9% 250ML 250 ML ONE (14:16)
--- NOTE | 2020-02-03 14:17 | NUR ---
IM- progress note O/N see below ROS; no f/c/s/N/V/D/TURCIOS/cp/skin rash/confusion/dizziness/focal limb weakness v/s revd PE tired appearing anicteric ns1s2 mod bs soft nd; minimal tenderness in suprapubic region; PD catheter in place; no surrounding erythema; RUQ TENDER; EQUIVOCAL REYES'S SIGN skin dry n. affect a&ox3; no leg edema labs/meds revd A/P: 69yoF UTI- IV abx Gallbladder disease- check HIDA Cholelithiasis- in past; now only GB distention; AOCD- monitor; rec'd 2 units PRBC recently GIB- ppi; GI eval. ESRD on PD- per nephro DM2- hab1c/LDL 6. Calciphylaxis- low calcium baths Cardiomegaly- cont BP Left adnexal lesion Hypertensive heart ds- home meds Prop: scd Dispo; f/u HIDA. - f/u HIDA: Low calcium bath and sodium thiosulfate for dialysis for calciphylaxis; monitor for Nausea. GIB- ppi; GI consulted; CHAYO ZAYAS MD, PHD.
[2020-02-03] MEDS: SODIUM THIOSULFATE 100 ML IV SCH (15:39)
--- NOTE | 2020-02-03 20:23 | Diagnostic Imaging Report ---
Hepatobiliary Scan with Gallbladder Ejection Fraction Reason for exam: Abdominal pain; gallbladder distension on CT Comparison: CT abdo/pelvis 02/01/2020 Report: Following intravenous administration of 5.5 millicuries of Tc-99m mebrofenin, dynamic images of the abdomen in the anterior projection were obtained through 34 minutes. Sincalide (CCK analog) 1.7 micrograms was administered intravenously over 30 minutes with additional imaging for determination of gallbladder ejection fraction. Perfusion to the liver is normal. Extraction of tracer from the blood pool by the liver parenchyma is normal. Tracer is seen promptly within the biliary tract. The gallbladder begins to fill by 12 minutes post-injection of tracer and fills adequately. Tracer is seen in the small bowel during the sincalide infusion. The gallbladder ejection fraction with administration of sincalide is 64% (normal greater than 40%). Impression: 1. Filling of the gallbladder excludes the diagnosis of acute cystic duct obstruction/acute cholecystitis. 2. Normal gallbladder ejection fraction of 64% does not support the clinical diagnosis of chronic cholecystitis/gallbladder dyskinesia. Signed by: Dr. Gricelda Dowd M.D. on 02/03/2020 8:20 PM
[2020-02-03] MEDS: AMITRIPTYLINE HCL 25 MG TAB PO SCH (21:44)
[2020-02-03] MEDS: PANTOPRAZOLE 40 MG 10ML VIAL IV SCH (21:44)
[2020-02-03] MEDS: ATORVASTATIN 20 MG TAB PO SCH (21:44)
[2020-02-03] MEDS: ONDANSETRON HCL INJ 2MG/ML 2ML 2 MG/ML VIAL IV PRN (21:55)
[2020-02-04] VITALS (8 sets, daily range): BP systolic 99–120; BP diastolic 55–65
--- NOTE | 2020-02-04 05:45 | NUR ---
Consent signed for EGD by patient. Daughter, Delaney Murcia, served as freight coordinator via Facetime video call. Pt verbalized understanding and signed consent without any difficulties. dehydrogenation supervisor, Izzy Palacios, at bedside as witness.
[2020-02-04 06:18] LABS: BASOPHILS # (AUTO) 0.1 (0.0-0.1); BASOPHILS % 0.6 % (0.0-1.0); EOSINOPHILS # (AUTO) 0.2 (0.0-0.4); EOSINOPHILS % 1.3 % (0.0-6.0); HEMATOCRIT 27.6 % (34.2-44.1); HEMOGLOBIN 8.9 g/dL (12.0-16.0); LYMPHOCYTES # (AUTO) 1.3 (1.0-3.2); LYMPHOCYTES % 9.3 % (18.0-39.1); MEAN CORPUSCULAR HEMOGLOBIN 27.6 pg (28-32); MEAN CORPUSCULAR HGB CONC 32.2 g/dL (31-35); MEAN CORPUSCULAR VOLUME 85.7 fL (81-99); MONOCYTES # (AUTO) 1.2 (0.2-0.8); MONOCYTES % 8.4 % (4.4-11.3); NEUTROPHILS # (AUTO) 11.2 (2.1-6.9); NEUTROPHILS % 79.8 % (38.7-80.0); PLATELET COUNT 322 x10e3/uL (140-360); RED BLOOD COUNT 3.22 x10e6/uL (3.6-5.1); RED CELL DISTRIBUTION WIDTH 17.3 % (11.7-14.4)
[2020-02-04 06:30] LABS: ANION GAP 29.6 mmol/L (8-16); CALCIUM 7.8 mg/dL (8.4-10.2); CREATININE, SERUM 8.21 mg/dL (0.57-1.11); MAGNESIUM 1.6 MG/DL (1.3-2.1); PHOSPHORUS 5.9 MG/DL (2.3-4.7); POTASSIUM 3.6 mmol/L (3.5-5.1)
--- NOTE | 2020-02-04 06:43 | NUR ---
IM- progress note O/N see below ROS; no f/c/s/N/V/D/TURCIOS/cp/skin rash/confusion/dizziness/focal limb weakness v/s revd PE tired appearing anicteric ns1s2 mod bs soft nd; minimal tenderness in suprapubic region; PD catheter in place; no surrounding erythema; RUQ TENDER; EQUIVOCAL REYES'S SIGN skin dry n. affect a&ox3; no leg edema labs/meds revd A/P: 69yoF UTI- IV abx Gallbladder disease- check HIDA Cholelithiasis- in past; now only GB distention; AOCD- monitor; rec'd 2 units PRBC recently GIB- ppi; GI eval. ESRD on PD- per nephro DM2- hab1c/LDL 6. Calciphylaxis- low calcium baths Cardiomegaly- cont BP Left adnexal lesion Hypertensive heart ds- home meds Prop: scd Dispo; f/u HIDA. 02-02 f/u HIDA: Low calcium bath and sodium thiosulfate for dialysis for calciphylaxis; monitor for Nausea. GIB- ppi; GI consulted; 02-03 HIDA negative; GB function normal; f/u endoscopy. d/w . CHAYO ZAYAS MD, PHD.
[2020-02-04] MEDS: CALCITRIOL 0.25 MCG CAP PO SCH ×2 (09:00→12:00)
[2020-02-04] MEDS: HYDRALAZINE HCL 10 MG TAB PO SCH (09:00)
[2020-02-04] MEDS: PANTOPRAZOLE 40 MG 10ML VIAL IV SCH ×3 (09:41→23:55)
[2020-02-04] MEDS: HYDROCODONE/APAP 10MG-325MG TAB PO PRN (09:41)
--- NOTE | 2020-02-04 10:20 | NUR ---
ST Note: Attempted to see pt for f/u to ensure tolerance of recommended diet. Pt off floor for procedure. Will f/u later time permitting.
--- NOTE | 2020-02-04 10:22 | NUR ---
PATIENT OFF THE FLOOR FOR EGD
--- NOTE | 2020-02-04 11:43 | NUR ---
PHONE REPORT RECEIVED TSERING TOUSSAINT. PATIENT BACK ON THE FLOOR FROM EGD
[2020-02-04] MEDS: FUROSEMIDE 40 MG TAB PO SCH (12:00)
[2020-02-04] MEDS: SEVELAMER CARBONATE 800 MG TAB PO SCH ×2 (13:00→16:40)
[2020-02-04] MEDS ORDERED: FENTANYL CITRATE/PF 100MCG/2 ML INJ ONE (13:07)
--- NOTE | 2020-02-04 13:33 | Progress Note ---
DATE: 02/04/2020 Renal Progress Note SUBJECTIVE: Followed for end-stage renal disease. The patient is on peritoneal dialysis. No evidence of peritonitis based on fluid cell count. The patient has lower abdominal pain, also left thigh pain, which is likely from calciphylaxis. The patient was started on IV sodium thiosulfate yesterday 25 g on Monday, Monday, and Monday. Still has some pain, although is improved. No nausea. No vomiting. No shortness of breath. OBJECTIVE: VITAL SIGNS: Noted. Blood pressure is 118/62, 101 pulse. The patient is afebrile. LUNGS: Clear to auscultation bilaterally. CARDIOVASCULAR: S1 and S2. No rub. ABDOMEN: Soft and nontender. EXTREMITIES: No edema. LABORATORY DATA: H and H are 8.9 and 27.6. Sodium 141, potassium 3.6, chloride 96, bicarb of 19, BUN is 52, and creatinine is 8.21. IMPRESSION AND PLAN: 1. End-stage renal disease. We will continue peritoneal dialysis per her prescription. 2. Hypertension. We will adjust blood pressure medications. The patient is running blood pressures on the low side. 3. History of calciphylaxis. We will continue with IV sodium thiosulfate. 4. Necrotic ulcers. Plan per primary MD. Continue with empiric IV antibiotics. Jose Antonio Nelson MD /MODL /[id number]
--- NOTE | 2020-02-04 14:09 | NUR ---
WOUND CARE CONSULT 69 YO FEMALE HX OF ESRD, ABD PAIN JOEL 14 0N MODERATE PUP STATUS AND INTERVENTIONS LABS: WBC- 13.98 HGB- 8.9 GLUCOSE-190 SKIN ASSESSMENT COMPLETE PATIENT PRESENTS WITH BLANCHABLE GENERAL REDNESS ON BOTTOM LEFT HAND PARTIAL THICKNESS BLISTER R/T IV INFILTRATION 11CM X 8CM CLOSED DARK RED/BLISTERED AREA RECOMMENDATIONS: NURSING TO CONTINUE TO MONITOR PATIENT AND KEEP SKIN CLEAN AND FREE FROM LOOSE STOOL OR IRRITATING MOISTURE AND CONTINUE TO FOLLOW MODERATE PUP INTERVENTIONS NURSING TO CONTINUE TO GET PATIENT OUT OF BED FOR MEALS AND MUCH TOLERATED NURSING TO CLEAN RED IRRITATED GLUTEAL AREA DAILY AND APPLY VENELEX OINTMENT TO .. AND COVER WITH ALLEVYN FOAM DRESSING NURSING TO CLEAN LEFT HAND PARTIAL THICKNESS WOUND WITH NORMAL SALINE DAILY AND APPLY VENELEX OINTMENT TO .. AND COVER WITH ALLEVYN FOAM DRESSING Addendum: 02/04/20 at 1414 by Molina Lema RN Amended: Links added.
--- NOTE | 2020-02-04 14:29 | Operative Report ---
DATE OF PROCEDURE: 02/04/2020 SURGEON: Mikhail Ortiz MD PROCEDURE: EGD with biopsies. INDICATIONS FOR EGD: Upper abdominal pain, positive occult blood in stool. MEDICATIONS: The patient was done under MAC, please see anesthesiologist's note. PROCEDURE IN DETAIL: With the patient in the left lateral decubitus position, a flexible fiberoptic Olympus gastroscope was introduced into the esophagus under direct visualization without any difficulty. There was some diffuse erythema and low-grade to moderate edema noted in the stomach, and biopsies were obtained and sent to stain for H. pylori. An approximately 8 mm ulcer pyloric channel with heaped up margins was biopsied. The scope was then advanced all the way to the second portion of the duodenum. It was then withdrawn slowly. Mucosa overlying the proximal second portion appeared to be within normal limits. An approximately 1.2 cm ulcer in the duodenal bulb with heaped up margins was noted. There was no active bleeding or stigmata of recent hemorrhage. The scope was then withdrawn back into the stomach and retroflexed, mucosa overlying the fundus and the cardia appeared to be within normal limits. The scope was then straightened out, it was subsequently withdrawn, and the patient tolerated the procedure well. IMPRESSION: 1. Normal esophagus. 2. Gastritis, biopsied, biopsies sent to stain for Helicobacter pylori. 3. Pyloric channel ulcer with heaped up margins, approximately 8 mm in size without active bleeding or stigmata of recent hemorrhage. Biopsies obtained. 4. Duodenal bulb ulcer, approximately 1.2 cm sized with heaped up margins without active bleeding or stigmata of recent hemorrhage. PLAN: Follow up histology. Follow H and H. Continue current therapy. Resume diet. Mikhail Ortiz MD [facility]/MODL /[id number] cc: Jimmy Alvares MD
[2020-02-04] MEDS: HYDRALAZINE HCL 25 MG TAB PO SCH (16:40)
[2020-02-04] MEDS ORDERED: PROPOFOL IV EMULSION 10 MG/ML 20 ML VIAL ONE (19:15)
[2020-02-04] MEDS ORDERED: ETOMIDATE 2 MG/ML 10 ML INJ IV ONE (19:15)
[2020-02-04] MEDS ORDERED: PHENYLEPHRINE HCL 1% 10 MG/ML VIAL ONE (19:15)
[2020-02-04] MEDS ORDERED: HYDRALAZINE HCL 10 MG TAB PO SCH (21:00)
[2020-02-04] MEDS: ATORVASTATIN 20 MG TAB PO SCH (21:33)
[2020-02-04] MEDS: AMITRIPTYLINE HCL 25 MG TAB PO SCH (21:33)
[2020-02-05] VITALS (8 sets, daily range): BP systolic 114–130; BP diastolic 40–76
[2020-02-05 06:34] LABS: BASOPHILS % 0.3 % (0.0-1.0); EOSINOPHILS # (AUTO) 0.3 (0.0-0.4); EOSINOPHILS % 2.2 % (0.0-6.0); HEMATOCRIT 27.5 % (34.2-44.1); HEMOGLOBIN 8.9 g/dL (12.0-16.0); LYMPHOCYTES # (AUTO) 1.7 (1.0-3.2); LYMPHOCYTES % 13.1 % (18.0-39.1); MEAN CORPUSCULAR HGB CONC 32.4 g/dL (31-35); MEAN CORPUSCULAR VOLUME 83.3 fL (81-99); MONOCYTES # (AUTO) 0.9 (0.2-0.8); MONOCYTES % 7.2 % (4.4-11.3); NEUTROPHILS # (AUTO) 9.9 (2.1-6.9); NEUTROPHILS % 76.5 % (38.7-80.0); PLATELET COUNT 304 x10e3/uL (140-360); RED CELL DISTRIBUTION WIDTH 17.5 % (11.7-14.4)
--- NOTE | 2020-02-05 06:45 | NUR ---
SBAR BEDSIDE REPORT RECEIVED FROM MIKAYLA TOUSSAINT, PM SHIFT. PATIENT WAS FOUND LYING IN BED IN NO ACUTE DISTRESS. PATIENT'S NEED FOR WATER AND REPOSITIONING WERE MET. PATIENT SPEAKS PRIMARILY ITALIAN BUT CAN CONVERSE MINIMALLY IN BOLIVIAN. I COMMUNICATED WITH PATIENT USING Osmopure TRANSLATE. PATIENT WAS EDUCATED OF FALL RISK PRECAUTIONS AND VERBALIZED UNDERSTANDING. CALL LIGHT AND BELONGINGS PLACED NEARBY. WILL CONTINUE TO MONITOR.
[2020-02-05 07:03] LABS: ANION GAP 29.8 mmol/L (8-16); CALCIUM 7.6 mg/dL (8.4-10.2); CREATININE, SERUM 8.33 mg/dL (0.57-1.11); MAGNESIUM 1.5 MG/DL (1.3-2.1); PHOSPHORUS 6.2 MG/DL (2.3-4.7); POTASSIUM 3.8 mmol/L (3.5-5.1)
[2020-02-05] MEDS: SEVELAMER CARBONATE 800 MG TAB PO SCH ×3 (08:21→18:38)
[2020-02-05] MEDS: CALCITRIOL 0.25 MCG CAP PO SCH (08:21)
--- NOTE | 2020-02-05 08:48 | NUR ---
IM- progress note O/N see below ROS; no f/c/s/N/V/D/TURCIOS/cp/skin rash/confusion/dizziness/focal limb weakness v/s revd PE tired appearing anicteric ns1s2 mod bs soft nd; minimal tenderness in suprapubic region; PD catheter in place; no surrounding erythema; RUQ TENDER; EQUIVOCAL REYES'S SIGN skin dry n. affect a&ox3; no leg edema labs/meds revd A/P: 69yoF UTI- IV abx Gallbladder disease- check HIDA Cholelithiasis- in past; now only GB distention; AOCD- monitor; rec'd 2 units PRBC recently GIB- ppi; GI eval. ESRD on PD- per nephro DM2- hab1c/LDL 6. Calciphylaxis- low calcium baths Cardiomegaly- cont BP Left adnexal lesion Hypertensive heart ds- home meds Prop: scd Dispo; f/u HIDA. 02-02 f/u HIDA: Low calcium bath and sodium thiosulfate for dialysis for calciphylaxis; monitor for Nausea. GIB- ppi; GI consulted; 02-03 HIDA negative; GB function normal; f/u endoscopy. d/w . 02-04 PUD- on endoscopy; IV PPI BID; will need f/u outpt; CHAYO ZAYAS MD, PHD.
[2020-02-05] MEDS: HYDRALAZINE HCL 25 MG TAB PO SCH ×2 (09:00→18:38)
[2020-02-05] MEDS: FUROSEMIDE 40 MG TAB PO SCH (09:45)
[2020-02-05] MEDS: BALSAM PERU/CASTOR OIL 60 GM OINT...G. TP SCH (10:16)
--- NOTE | 2020-02-05 11:25 | NUR ---
REQUEST MADE TO DR. ZAYAS FOR SNF ORDER. AWAITING A RETURN CALL
[2020-02-05] MEDS: CEFEPIME 1GM/NS 0.9% 50 ML 50 ML IV SCH ×2 (12:59→20:16)
[2020-02-05] MEDS: PANTOPRAZOLE 40 MG 10ML VIAL IV SCH ×2 (12:59→23:45)
--- NOTE | 2020-02-05 13:08 | Progress Note ---
DATE: 02/05/2020 Renal Progress Note SUBJECTIVE: The patient is followed for end-stage renal disease. She is tolerating peritoneal dialysis without any problems. The patient is also getting treated for calciphylaxis with IV sodium thiosulphate. Today no nausea, no vomiting, no shortness of breath. Blood pressure is better today after dialysis was done with 1.5% dextrose . OBJECTIVE: VITAL SIGNS: Have been noted and are stable. LUNGS: Clear to auscultation bilaterally. CARDIOVASCULAR: S1 and S2. No rub. ABDOMEN: Soft and nontender. EXTREMITIES: No edema. LABORATORY DATA: Have been reviewed. IMPRESSION AND PLAN: 1. End-stage renal disease. Continue peritoneal dialysis. Prescription per her orders. 2. Hypertension. Blood pressure is better controlled now. 3. . 4. Calciphylaxis. Continue on sodium thiosulphate. Jose Antonio Nelson MD TH/MODL /[id number]
[2020-02-05] MEDS: HYDROCODONE/APAP 10MG-325MG TAB PO PRN (13:23)
--- NOTE | 2020-02-05 14:44 | NUR ---
MET W THE PT AT THE BEDSIDE. BULGARIAN SPEAKING. REFERRED TO [facility] / HUSSAIN CALL TO HUSSAIN HERNANDEZ @ [phone]. STATES SHE AND THE PT LIVE TOGETHER. STATES THE PT WAS IND W HER ADL'S PRIOR TO ADMISSION. STATES PT DID HER OWN GROCERY SHOPPING ALSO. PT HAS WALKER [facility]E BSC AND SC. DISCUSSED SNF CHOICE; [facility], [facility], AND [facility]. THE DTR CHOSE [facility]. REFERRAL FAXED TO OFF: [phone] / FAX: [phone]
[2020-02-05] MEDS: SODIUM THIOSULFATE 100 ML IV SCH ×2 (16:00→22:00)
[2020-02-05] MEDS: AMITRIPTYLINE HCL 25 MG TAB PO SCH (20:16)
[2020-02-05] MEDS: ATORVASTATIN 20 MG TAB PO SCH (20:16)
[2020-02-05] MEDS ORDERED: FLUCONAZOLE 200 MG/100 ML 100 ML IV SCH (23:00)
[2020-02-06] VITALS (7 sets, daily range): BP systolic 98–153; BP diastolic 68–90
[2020-02-06] MEDS: ONDANSETRON HCL INJ 2MG/ML 2ML 2 MG/ML VIAL IV PRN ×2 (03:32→07:35)
[2020-02-06 06:30] LABS: BASOPHILS # (AUTO) 0.1 (0.0-0.1); BASOPHILS % 0.5 % (0.0-1.0); EOSINOPHILS # (AUTO) 0.3 (0.0-0.4); EOSINOPHILS % 2.1 % (0.0-6.0); HEMATOCRIT 27.1 % (34.2-44.1); HEMOGLOBIN 8.8 g/dL (12.0-16.0); LYMPHOCYTES # (AUTO) 1.8 (1.0-3.2); LYMPHOCYTES % 13.8 % (18.0-39.1); MEAN CORPUSCULAR HGB CONC 32.5 g/dL (31-35); MEAN CORPUSCULAR VOLUME 83.1 fL (81-99); MONOCYTES % 7.8 % (4.4-11.3); NEUTROPHILS % 75.3 % (38.7-80.0); PLATELET COUNT 283 x10e3/uL (140-360); RED BLOOD COUNT 3.26 x10e6/uL (3.6-5.1); RED CELL DISTRIBUTION WIDTH 17.3 % (11.7-14.4)
[2020-02-06 06:54] LABS: CALCIUM 7.6 mg/dL (8.4-10.2); CREATININE, SERUM 8.07 mg/dL (0.57-1.11); MAGNESIUM 1.5 MG/DL (1.3-2.1); PHOSPHORUS 5.6 MG/DL (2.3-4.7); POTASSIUM 3.7 mmol/L (3.5-5.1)
[2020-02-06] MEDS: SEVELAMER CARBONATE 800 MG TAB PO SCH ×3 (09:00→17:35)
[2020-02-06] MEDS: FUROSEMIDE 40 MG TAB PO SCH (09:00)
[2020-02-06 09:15] LABS: ANION GAP 33.7 mmol/L (8-16)
[2020-02-06] MEDS: CALCITRIOL 0.25 MCG CAP PO SCH (10:00)
[2020-02-06] MEDS: BALSAM PERU/CASTOR OIL 60 GM OINT...G. TP SCH (10:00)
[2020-02-06] MEDS: PANTOPRAZOLE 40 MG 10ML VIAL IV SCH (12:28)
--- NOTE | 2020-02-06 15:31 | Progress Note ---
DATE: 02/06/2020 Renal Progress Note SUBJECTIVE: Followed for end-stage renal disease and patient is on hemodialysis, tolerating it without any problems. She also has calciphylaxis confirmed by skin punch biopsy. The patient is getting IV sodium thiosulphate infusion. No nausea. No vomiting. No shortness of breath. OBJECTIVE: VITAL SIGNS: Have been noted and are stable. LUNGS: Clear to auscultation bilaterally. CARDIOVASCULAR: S1 and S2. No rub. ABDOMEN: Soft. Positive bowel sounds. EXTREMITIES: No edema. LABORATORY DATA: Have been reviewed. IMPRESSION AND PLAN: 1. End-stage renal disease. We will continue peritoneal dialysis as per schedule. 2. Hypertension. Blood pressure is currently stable. Continue to monitor. 3. We will discontinue hydralazine since she is still running lower blood pressures. 4. Anemia of chronic disease, stable. 5. Calciphylaxis. We will continue on IV sodium thiosulfate. 6. Gastrointestinal bleed. Plan would be as per primary MD and GI recommendations. Jose Antonio Nelson MD TH/MODL /[id number]
--- NOTE | 2020-02-06 19:30 | NUR ---
Pt discharged to [facility]. Pt transported via stretcher by [facility]. Daughter, Stephanie, notified of departure. Pt alert and awake. Vitals stable. IV discontinued. No bleeding or swelling at IV site. alarm security or surveillance monitor removed and returned to telemetry department.
[2020-02-07] MEDS ORDERED: FLUCONAZOLE 100 MG TAB PO SCH (09:00)
--- OUTSIDE RECORDS SUMMARY | 2020-02-09 13:58 | XMS REPORT | Clinical Summary ---
Author Author [facility] Organization [facility] Address Unknown Phone Unavailable Care Team Providers Care Trust Accounts Supervisor Name Role Phone Asked, No Pcp PCP Unavailable Allergies No Known Active Allergies Medications End Date Status Medication Sig [...] (Primary Dx); Weakness 08/28/2019 Hospital General Internal [facility] - Encounter 08/29/2019 Melissa Sellers NP 08/28/2019 Orders Only General Internal Me dicine after 01/31/2019 Social History Date Tobacco Use Types Packs/Day [...] Assigned at Date Recorded Not on file Last Filed Vital Signs Reading Time Taken [...] (2 of 2 - PPSV23) INFLUENZA VACCINE 12/14/2019 Procedures Comments Procedure Name Priority Date/Time Associated [...] 12-LEAD STAT 08/28/2019 8:20 PM CDT after 01/31/2019 Results * POC glucose (08/29/2019 11:04 AM CDT) Only the most recent of 3 results within the time period is included. [facility] POC glucose 207 (H) 65 - 100 mg/dL CUSTER Comment: CATHOLIC Mill Controller Name: Sue Frias [place] Device ID: [id number] HOSPITAL Specimen Blood Performing Organization Address [facility] P christian Number [address] * Estimated GFR (08/29/2019 5:56 AM CDT) Only the most recent of 2 results within the time period is included. [facility] Estimated GFR 6 (A) mL/min/1.73 m2 CUSTER Comment: CATHOLIC Catergory Units [facility] G1 >=90 Normal or high G2 60-89 [...] published in 2014. Specimen Performing Organization Address City/[facility] [place] [address] PATHOLOGY AND [facility] MED[facility] [address] * CBC with platelet and differential (08/29/2019 5:56 AM CDT) Only the most recent of 2 results within the time period is included. [facility] WBC 7.1 4.2 - 11.0 k/uL [facility] RBC 3.04 (L) 4.04 - 5.86 m/uL [facility] HGB 9.1 (L) 11.5 - 15.3 g/dL [facility] HCT 28.3 (L) 34.0 - 45.0 % [facility] MCV 93.1 80.0 - 98.0 fL [facility] MCH 29.9 27.0 - 34.0 pg [facility] MCHC 32.2 31.5 - 36.5 g/dL [facility] RDW - SD 48.3 37.0 - 51.0 fL [facility] MPV 8.2 7.4 - 10.4 fL [facility] Platelet count 376 150 - 400 k/uL [facility] Nucleated RBC 0.00 /100 WBC [facility] Neutrophils 64.6 36.0 - 66.0 % [facility] Lymphocytes 23.6 (L) 24.0 - 44.0 % [facility] Monocytes 6.6 (H) 0.0 - 6.0 % [facility] Eosinophils 3.9 0.0 - 6.0 % [facility] Basophils 1.0 0.0 - 1.2 % [facility] Immature 0.3 0.0 - 1.0 % CUSTER granulocytes [facility] Specimen Blood Performing Organization Address City/State/ZIP Code P christian Number [facility] OF [address] [place] [address] PATHOLOGY AND GENOMIC MEDICINE [address] * Basic metabolic panel (08/29/2019 5:56 AM CDT) Sodium 135 135 - 150 mEq/L [facility] Potassium 3.6 3.5 - 5.0 mEq/L [facility] Chloride 93 (L) 98 - 112 mEq/L [facility] CO2 25 24 - 31 mmol/L [facility] Anion gap 17@ANIO (H) 7 - 15 mEq/L [facility] BUN 36 (H) 7 - 18 mg/dL [facility] Creatinine 6.40 (H) 0.50 - 0.90 mg/dL [facility] Glucose 217 (H) 65 - 100 mg/dL [facility] Calcium 7.6 (L) 8.8 - 10.2 mg/dL [facility] Specimen Blood Performing Organization Address City/State/ZIP Code P christian Number [facility] [address] [address] PATHOLOGY AND GENOMIC MEDICINE [facility] [address] [place]. [address] * Troponin (08/29/2019 2:03 AM CDT) Only the most recent of 2 results within the time period is included. Troponin 0.020 0.000 - 0.040 ng/mL CUSTER Comment: CATHOLIC In patients suspected of G[facility]NER having a myocardial HOSPITAL infarction, along with [...] 0.020 ng/mL Specimen Blood Performing Organization Address City/State/[facility] P christian Number [facility] [address] [place] [address] PATHOLOGY AND GENOMIC MEDICINE [facility] [address] [place] [address] * Hepatitis B surface Ab, quantitative (08/28/2019 11:00 PM CDT) Pathologist [facility] Hepatitis B 494.43 IU/L AR REF LAB [...] refer to MMWR May 06, 2005/Vol. 54(No. 16);-, and for healthcare workers refer to MMWR May 03, 2013/Vol. 62(No. 10);-. Reference Interval: anti-HBs 9.99 IU/L or less ....... Negative 10.00 IU/L or greater .... Positive Results greater than 1,000.00 IU/L are reported as greater than 1,000.00 IU/L. This assay should not be used for blood donor screening, associated re-entry protocols, or for screening Human Cell, Tissues and Cellular and Tissue-Based Products (HCT/P). Performed by [employer], [address] [place] [id number] [email or web address], Mikael Matias MD, Lab. Director Specimen Serum Performing Organization Address [facility] P christian Number [facility] [address] [place] [address] [facility] REF LAB [address] [place] [address] * Hepatitis B surface antigen (08/28/2019 11:00 PM CDT) Pathologist [facility] [place] Hepatitis B Non-reactive Non-reactive [facility] surface Ag [facility] Specimen Blood Performing Organization Address City/[facility]/ZIP [facility] P christian Number [facility] OF [address] [place] [address] PATHOLOGY AND GENOMIC MEDICINE [facility] [address] [place] [address] [address]OS[address]ITAL * CT Head Wo Contrast (08/28/2019 [...] a bnormality. Chronic findings as detailed above. [facility]-[id number] Procedure Note Interface, Radiology Results Incoming - [...] intracranial abnormality. Chronic findings as detailed above. [facility]-[id number] Performing Organization Address City/State/ZIP Code P christian Number [facility] [address] [place] [address] * Prothrombin time with INR (08/28/2019 8:34 PM CDT) Prothrombin 14.8 (H) 11.5 - 14.5 sec [facility] INR 1.16 CUSTER Comment: CATHOLIC For patients on anticoagulant [facility]NER therapy, reference ranges HOSPITAL below: Indication: INR Value Treatment of Venous Thrombosis, 2.0-3.0 pulmonary emboli, or prophylaxis of a venous thrombosis, or systemic emboli. High dose, high risk patients 3.0-4.5 with mechanical valves. NOTE: INR values over 3.0 are sometimes associated with gastrointestinal hemorrhage, especially values over 4.0. Specimen Blood Performing Organization Address City/State/ZIP Code P christian Number [facility] [address] [place] [address] PATHOLOGY AND GENOMIC MEDICINE [facility] [address] [place] [address] * B natriuretic peptide (08/28/2019 8:34 PM CDT) BNP 97 0 - 100 pg/mL [facility] Specimen Blood Performing Organization Address City/State/ZIP Code P christian Number [facility] OF [address] [place] [address] PATHOLOGY AND GENOMIC MEDICINE [facility] [address] * Lipid panel (08/28/2019 8:34 PM CDT) Cholesterol 80 0 - 199 mg/dL [facility] Triglycerides 87 0 - 149 mg/dL [facility] HDL cholesterol 26 (L) 40 - 9,999 mg/dL [facility] LDL cholesterol 41Comment: Result obtained by 0 - 99 mg/dL [facility]ER direct LDL measurement [facility] Lipid panel See below CUSTER interpretation Comment: CATHOLIC Total Cholesterol (mg/dL) [facility] Cholesterol [facility] (mg/dL) <200 Desirable <100 Optimal 200-239 [...] (>=200 mg/dL) Specimen Blood Performing Organization Address City/State/ZIP Code P christian Number [facility] [address] [place] [id number] PATHOLOGY AND GENOMIC MEDICINE [facility] [address] * Comprehensive metabolic panel (08/28/2019 8:34 PM CDT) Sodium 135 135 - 150 mEq/L [facility] Potassium 3.2 (L) 3.5 - 5.0 mEq/L [facility] Chloride 92 (L) 98 - 112 mEq/L [facility] CO2 24 24 - 31 mmol/L [facility] Anion gap 19@ANIO (H) 7 - 15 mEq/L [facility] BUN 37 (H) 7 - 18 mg/dL [facility] Creatinine 6.60 (H) 0.50 - 0.90 mg/dL [facility] Glucose 95 65 - 100 mg/dL [facility] Calcium 7.6 (L) 8.8 - 10.2 mg/dL [facility] Protein 6.6 6.3 - 8.3 g/dL [facility] Albumin 2.1 (L) 3.5 - 5.0 g/dL [facility] A/G ratio 0.5 (L) 0.7 - 3.8 [facility] Alkaline 147 (H) 0 - 104 U/L CUSTER phosphatase [facility] AST 19 10 - 35 U/L [facility] ALT 16 5 - 50 U/L [facility] Total bilirubin 0.4 0.2 - 1.2 mg/dL [facility] Specimen Blood Performing Organization Address City/[facility]/ZIP [facility] P christian Number [facility] [address] [place] [address] PATHOLOGY AND GENOMIC MEDICINE [address] * ECG 12 lead (08/28/2019 8:20 PM CDT) Ventricular 101 [facility] rate Atrial rate 101 [facility] NV interval 166 [facility] QRSD interval 90 [...] is n ot available. Performing Organization Address City/[facility]/ZIP Code P christian Number [facility] MUSE [address] [place] [address] after 01/31/2019 Insurance Type Payer Benefit Subscriber ID Effective Phone Address Plan / Dates Group O [facility] MEDICARE [facility] [id number] 2019-P [employer] (MEDICARE- MEDICAID PLAN) Advance Directives For more information, please contact: [phone] Patient Candle Maker Explanation Type Date Recorded Advance Directives, Living Will and Medical Power of Presentation Manager
--- OUTSIDE RECORDS SUMMARY | 2020-02-09 13:58 | XMS REPORT | Clinical Summary ---
Author Author [facility] Organization [facility] Address Unknown Phone Unavailable Care Team Providers Care Log Ha[employer] Feeder Name Role Phone Moises Jung MD PCP [...] vaccination 02/25/2019 Office Visit Family Practice after 01/31/2019 Immunizations Name Administration Dates Next Due Hepatitis [...] Comments Vital Sign 146/60 07/19/2019 9:[address] manual Blood Pressure 89 07/19/2019 9:[address] Pulse 36.6 C (97.9 F) 07/19/2019 9:[address] Temperature 19 07/19/2019 9:[address] Respiratory Rate - - Oxygen Saturation - - Inhaled Oxygen Concentration 78.8 kg (173 lb 11.2 oz) 07/19/2019 9:[address] Weight 157.9 cm (5' 2.17") 07/19/2019 9:[address] Height 31.6 07/19/2019 9:[address] Body Mass Index Plan of Treatment Health [...] BLOOD GLUCOSE Lifestyle No Belkys Banks i, RESIDENT CARE SPEC Reduce pain Lifestyle No Nancy Bui, Sales Exec Eat Healthy Lifestyle Yes Nancy Bui Sales Exec Eat Healthy Lifestyle No Tabitha Kurtz LVN [...] without long-term current use of insulin after 01/31/2019 Results * URINALYSIS, MICROSCOPIC (07/22/2019 1:11 PM CDT) Pathologist [facility] RBC 11-21 (A) 0 - 4 /HPF [facility] WBC 5-20 (A) 0 - 5 /HPF [facility] Mucous Present (A) None seen /HPF [facility] Epithelial Cell 1/HPF (A) <1 /HPF [facility] Bacteria Moderate (A) None seen /HPF [facility] Granular Cast 0-1 None seen /LPF [facility] Specimen Urine Performing Organization Address [facility] one Number [facility] [address] [place] [address] [phone] [facility] * Urinalysis (07/22/2019 1:11 PM CDT) Pathologist [facility] Color Yellow Colorless, Straw, [facility] Yellow Clarity Clear Clear [facility] Spec [place], 1.025 1.005 - 1.035 [facility] Ur [...] [facility] Specimen Urine Performing Organization Address [facility] one Number [facility] [address] [place] [address] [facility] * Hemoglobin A1C (07/22/2019 1:11 PM CDT) Only the most recent of 2 results within the time period is included. Pathologist [facility] Hemoglobin A1c 10.4 (H) 4.3 - 6.1 % [facility] Estimated 252 (H) 70 - 110 mg/dL [facility] Average Glucose [facility] Specimen Blood Performing Organization Address [facility] one Number [facility] [address] [place] [address] * Electrolytes (07/22/2019 1:11 PM CDT) Pathologist [facility] Sodium 133 (L) 136 - 145 mmol/L [facility] Potassium 3.2 (L) 3.5 - 5.1 mmol/L [facility] Chloride 93 (L) 98 - 107 mmol/L [facility] CO2 25 21 - 31 mmol/L [facility] Anion Gap 15 5 - 16 mmol/L [facility] Specimen Blood Performing Organization Address [facility] one Number [facility] [address] [place] [address] * Liver Profile (07/22/2019 1:11 PM CDT) [facility] Total Protein 6.1 6.0 - 8.3 g/dL [...] [facility] Specimen Blood Performing Organization Address [facility] one Number [facility] [address] [place] [address] * Lipid Profile (07/22/2019 1:11 PM CDT) [facility] Cholesterol 123.0 <=200.0 mg/dL [facility] [...] triglyceride result gre ater than 440 mg/dL, [facility] consider re-testing when the patient is in a fasting state. Performing Organization Address [facility] one Number [facility] [address] [place] [address] * Glucose, Fasting (07/22/2019 1:11 PM CDT) [...] 140 mg/dL Specimen Blood Performing Organization Address [facility] one Number [facility] [address] [place] [address] * CBC (without differential) (07/22/2019 1:11 PM CDT) Pathologist [facility] WBC 16.2 (H) 4.5 - 11.0 K/uL [facility] RBC 3.39 (L) 4.20 - 5.40 [...] [facility] Specimen Blood Performing Organization Address [facility] one Number [facility] [address] [place] [address] * Urea Nitrogen/Creatinine (07/22/2019 1:11 PM CDT) Pathologist [facility] Urea Nitrogen 54.0 (H) 7.0 - 25.0 mg/dL [facility] Creatinine 5.1 (H) 0.6 - 1.2 mg/dL [facility] GFR, Estimated 8 (L) >=90 mL/min/1.73 m2 [facility] Specimen Blood Performing Organization Address City/State/Zipcode Ph one Number [facility] [address] [place] [address] * OPHTHALMOLOGY RETINAL SCAN (02/25/2019 11:09 AM [...] y/o, F (: , ) [facility] for a retinal imaging study of the left and right eye s. Based on the findings of the study, the following is recommended for STEPHANIE MURCIA Other Suspected Condition Found: Refer to [facility], next available appointment. For Follow-up at [facility]: The patient can be scheduled into any [facility] that has an ope n booking by calling the appointment center. Interpreting Provider's Comments: No comments provided Right Eye Findings: Negative for Diabetic Retinopathy. Other: Suspected Glaucoma Left Eye Findings: Diabetic Retinopathy: Mild Other: Suspected Glaucoma This result was electronically signed Adal Clark MD, , Taxonomy: [id number] on 02-25-2019 05:5 0:44 [facility] time. NOTE: Any pathology noted on this sarthak betic retinal evaluation should be confirmed by an appropriate ophthalmic examination. Performing Organization Address [facility]/State[facility] one Number [facility] * DIABETIC FOOT EXAM (02/25/2019 8:20 AM CDT) Narrative Performed At Moises Jung MD 019 11:27 AM Diabetic Foot Exam was performed at 10:33 AM. Right foot sensation is normal, right foot pulses are normal, right foot appearance is normal. Left foot sensation is nor mal, left foot pulses are normal, left foot appearance is normal. after 01/31/2019 Insurance Type Payer Benefit Subscriber ID Effective Phone Address Plan / Dates Group [facility] xxxxxxxxx 2014-P [phone] [address] [employer] [place] [id number] [place] [address]
--- OUTSIDE RECORDS SUMMARY | 2020-02-09 13:58 | XMS REPORT | Continuity of Care Document ---
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 Role Phone [employer] Unavailable Un available Problems Problem Status Onset Date Classification Date Reported Comments Source BACK PAIN Active 08/23/2018 [facility] SYDNEE, NAUSEA AND VOMITING Active 08/23/2018 [facility] Chronic kidney disease, unspecified 07/25/2017 11/01/2017 [facility] Hypocalcemia 07/25/2017 11/01/2017 [facility] Unspecified osteoarthritis, unspecified site 07/25/2017 11/01/2017 [facility] Pain in right knee 07/25/2017 11/01/2017 [facility] SWOLLEN LEGS Active 07/25/2017 [facility] Urinary tract infection, site not specified 10/19/2016 10/22/2016 [facility] WEAKNESS Active 10/19/2016 [facility] Discharge Diagnosis: Benign hypertension with CKD (chronic kidney disease) stage IV 02/18/2016 02/21/2016 [facility] Discharge Diagnosis: Bilateral flank pain 02/18/2016 02/21/2016 [facility] LWR BACK PAIN Active 02/18/2016 [facility] SEBACEOUS CYST ON RIGHT SIDE OF FACE Active 08/22/2012 [facility] ABSCESS Active 08/04/2012 [facility] Arthritis (disorder) Resolved Problem 08/27/2018 [facility] [place] Diabetes mellitus (disorder) R esolved Problem [facility] [place] Hypercholesterolemia (disorder) Resolved Problem [facility] [place] Hypertensive disorder, systemic arterial (disorder) Active Problem 08/27/2018 [facility] [employer] Depressive disorder (disorder) Resolved Problem [facility] [place] Arthritis Resolved Problem 09/09/2012 [facility] Diabetes mellitus Resolved Problem 09/09/2012 [facility] [place] Hypertension Active Problem 09/09/2012 [facility] Hypertensive chronic kidney disease with stage 1 through stage 4 chronic kidney disease, or unspecified chronic kidney disease 11/01/2017 [facility] Type 2 diabetes mellitus with diabetic c hronic kidney disease 11/01/2017 [facility] 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 11/01/2017 [facility] SEBACEOUS CYST Active [facility] ACUTE KIDNEY FAILURE, UNSPECIFIED Active [facility] NAUSEA WITH VOMITING, UNSPECIFIED Active [facility] Medications Medication Details Route Status Patient Instructions Ordering Provider Order Date Source atorvastatin 40 mg oral tablet 40 mg = 1 tab, PO, Bedtime, # 90 tab, 1 Refill(s) Active 08/25/2018 [facility] calcitriol 0.5 mcg oral capsule 0.5 microgram = 1 cap, PO, Daily, # 30 cap, 0 Refill(s) Active 08/25/2018 [facility] carvedilol 25 mg, PO, BID, 0 R efill(s) Active 08/25/2018 [facility] Vitamin D2 50,000 intl units oral capsule 50,000 IntlUnit = 1 cap, PO, 0 Refill(s) Active 08/25/2018 [facility] baclofen 5 mg oral tablet 10 m g = 2 tab, PO, TID, 0 Refill(s) Active 08/25/2018 [facility] Furosemide 40 MG Oral Tablet 4 0 mg = 1 tab, PO, BID, 0 Refill(s) Active 08/25/2018 [facility] Hydroxyzine Hydrochloride 25 MG Oral Tablet 25 mg = 1 tab, PO, Q8H, 0 Refill(s) Inactive 08/25/2018 [facility] Hydralazine Hydrochloride 50 MG Oral Tablet 100 mg = 2 tab, PO, TID, 0 Refill(s) Active 08/25/2018 [facility] atorvastatin Notes: (Same as: Lipitor) No Longer Active 08/25/2018 [facility] sennosides, RETIREMENT Notes: (Same a s: Senokot) No Longer Active 08/25/2018 [facility] Hydralazine Notes: (Same as: A presoline) May interfere w/enteral feedings Take With Food. No Longer Active 08/24/2018 [facility] Robaxin Notes: (Same as:Robaxi n) No Longer Active 08/24/2018 [facility] metoprolol tartrate Notes: (Sa me as: Lopressor) No Longer Active 08/24/2018 [facility] Amlodipine Notes: (Same as: No rvasc) No Longer Active 08/24/2018 [facility] POLYETHYLENE GLYCOL 3350 Notes : Dissolve in 8 oz of water or juice. (Same as: Miralax) No Longer Active 08/24/2018 [facility] Docusate Notes: (Same as: Cola ce) (Do Not Crush) No Longer Active 08/24/2018 [facility] heparin Notes: porcine heparin No Longer Active 08/24/2018 [facility] NIFEdipine 30 mg oral tablet, extended release Notes: (Same as: Adalat CC, Procardia XL) Give on empty stomach. Take 1 hour before or 2 hours after meal; "Avoid grapefruit and grapefruit juice". Do not crush Inactive 08/24/2018 [facility] tizanidine Notes: (Same As: Za naflex) No Longer Active 08/24/2018 [facility] Hydralazine Notes: (Same as: A presoline) Push over 5 minutes No Longer Active 08/24/2018 [facility] Insulin Lispro Notes: (Same as : Humalog ) Roll in palms of hands gently; Do not shake `vigorously. "Single Patient Use Only " WASTE: F/P - Black; E - [place]bo Trash Bin Stable for 28 days at room temp erature. Expires in days from Date No Longer Active 08/24/2018 [facility] Dextrose 50% Syringe 12.5 gm, 25 mL, Route: IVP, Drug Form: INJ, Dosing Weight 79.091, kg, PRN, PRN Blood Glucose Results, Start date: 08/24/18 1:07:00 CDT, Duration: 30 day, Stop date: 09/23/18 1:06:00 CDT No Longer Active 08/24/2018 [facility] Glucagon 1 mg, Route: IM, Drug form: PDR/INJ, PRN, Dosing Weight 79.091, kg, PRN Blood Glucose Results, Start date: 08/24/18 1:07:00 CDT, Duration: 30 day, Stop date: 09/23/18 1:06:00 CDT No Longer Active 08/24/2018 [facility] Lactated Ringers IV 1,000 mL 1 ,000 mL, Rate: 125 ml/hr, Infuse over: 8 hr, Route: IV, Dosing Weight 79.091 kg, Total Volume: 1,000, Start date: 08/24/18 1:06:00 CDT, Duration: 30 day, Stop date: 09/23/18 1:05:00 CDT, 1.89, m2 No Longer Active 08/24/2018 [facility] Hydromorphone Notes: (Same as: Dilaudid) No Longer Active 08/24/2018 [facility] Saline Flush 0.9% Notes: (Same as: BD Posiflush) No Longer Active 08/24/2018 [facility] Acetaminophen Notes: Do not ex ceed 4 gm/day. (Same as: Tylenol) No Longer Active 08/24/2018 [facility] Dextrose 50% Syringe 25 mL, Ro iqugmiut: IVP, Dosing Weight 79.091, kg, PRN, PRN Blood Glucose Results, Start date: 08/24/18 1:06:00 CDT, Duration: 30 day, Stop date: 09/23/18 1:05:00 CDT Inactive 08/24/2018 [facility] Bisacodyl Notes: (Same As: Dul colax, Bisco-Lax) No Longer Active 08/24/2018 [facility] Melatonin Notes: (Same as: Angela atonin) No Longer Active 08/24/2018 [facility] Ondansetron Notes: (Same as: Viry zhang) MEDICATION WASTE Product Size: 4 mg Product Wasted: ___ mg No Longer Active 08/24/2018 [facility] Glucagon 1 mg, Route: IM, PRN, Dosing Weight 79.091, kg, PRN Blood Glucose Results, Start date: 08/24/18 1:06:00 CDT, Duration: 30 day, Stop date: 09/23/18 1:05:00 CDT Inactive 08/24/2018 [facility] Saline Flush 0.9% Notes: (Same as: BD Posiflush) No Longer Active 08/24/2018 [facility] tramadol hydrochloride 50 MG Oral Tablet 50 mg = 1 tab, PO, Q8H, PRN Pain, X 5 day, # 24 tab, 0 Refill(s) No Longer Active 07/26/2017 [facility] Glipizide 10 mg, PO, BID, 0 Re fill(s) Active 07/26/2017 [facility] Hydralazine 25 mg, PO, BID, 0 Refill(s) Active 07/26/2017 [facility] atorvastatin 40 mg, PO, Bedtim e, 0 Refill(s) Active 07/26/2017 [facility] Tramadol 50 mg, PO, PRN, 0 Ref ill(s) Active 07/26/2017 [facility] metoprolol tartrate 50 mg oral tablet 50 mg = 1 tab, PO, BID, 0 Refill(s) Active 07/26/2017 [facility] tramadol hydrochloride 50 MG Oral Tablet 50 mg, Route: PO, Drug form: TAB, ONCE, Dosing Weight 84.091, kg, Priority: STAT, Start date: 07/25/17 21:25:00 CDT, Stop date: 07/25/17 21:25:00 CDT Inactive 07/26/2017 [facility] Cephalexin 500 MG Oral Capsule [Keflex] 500 mg = 1 cap, PO, BID, X 10 day, # 20 cap, 0 Refill(s) Active 10/19/2016 [facility] Sodium Chloride 0.154 MEQ/ML Injectable Solution 1,000 mL, 1000 ml/hr, Infuse Over: 1 hr, Route: IV, 1,000, Drug form: INJ, ONCE, Priority: STAT, Dosing Weight 91.818 kg, Start date: 10/19/16 15:07:00 CDT, Duration: 1 doses or times, Stop date: 10/19/16 15:07:00 CDT Inactive 10/19/2016 [facility] Pyridium Notes: Give with meal s. (Same as: Pyridium) Inactive 10/19/2016 [facility] Ceftriaxone Notes: (Same As: Vini greene). Use with 100 mL NS and infuse over 30 min MEDICATION WASTE Product Size: 2000 mg Product Wasted: ___ mg Inactive 10/19/2016 [facility] Saline Flush 0.9% Notes: (Same as: BD Posiflush) Inactive 10/19/2016 [facility] Docusate Sodium 100 MG Oral Capsule [Colace] 100 mg = 1 cap, PO, BID, PRN Constipation, # 20 cap, 0 Refill(s) Active 02/18/2016 [facility] Acetaminophen 300 MG / Codeine Phosphate 30 MG Oral Tablet [Tylenol with Codeine #3] 1 - 2 tab, PO, Q4H, PRN Pain, X 2 day, # 20 tab, 0 Refill(s) No Longer Active 02/18/2016 [facility] Sodium Chloride 0.154 MEQ/ML Injectable Solution 1,000 mL, 2,000 ml/hr, Infuse Over: 30 minutes, Route: IV, ONCE, Priority: STAT, Dosing Weight 91.818 kg, Start date: 02/18/16 13:38:00 CDT, Duration: 1 doses or times, Stop date: 02/18/16 13:38:00 CDT Inactive 02/18/2016 [facility] Saline Flush 0.9% Notes: (Same as: BD Posiflush) Inactive 02/18/2016 [facility] Morphine 4 mg, Route: IVP, ONC E, Dosing Weight 91.818, kg, Priority: STAT, Start date: 02/18/16 13:38:00 CDT, Stop date: 02/18/16 13:38:00 CDT Inactive 02/18/2016 [facility] Ondansetron 4 mg, Route: IVP, ONCE, Dosing Weight 91.818, kg, Priority: STAT, Start date: 02/18/16 13:38:00 CDT, Stop date: 02/18/16 13:38:00 CDT Inactive 02/18/2016 [facility] Vicodin 5/500 oral tablet 1 ta b, PO, Q6H, 30 tab, Substitution Allowed, Maintenance PO Active Free t 09/07/2012 [facility] nter naloxone 0.04 mg, 0.1 mL, Rout e: IVP, Drug form: INJ, Q2MIN, Dosing Weight 83.182, kg, PRN Narcotic Reversal, Start date: 09/07/12 10:30:00, Duration: 8 doses or times, Stop date: 09/08/12 0:00:00 IVP No Longer Active Hemmad 09/07/2012 [facility] flumazenil 0.2 mg, 2 mL, Route : IVP, Drug form: INJ, PRN, Dosing Weight 83.182, kg, PRN Benzodiazepine Reversal, Initial dose, Start date: 09/07/12 10:30:00, Duration: 30 day, Stop date: 10/07/12 10:29:00 IVP No Longer Active Hemmad 08/14 [facility] ondansetron 4 mg, 2 mL, Route: IVP, Drug form: INJ, ONCE, Dosing Weight 83.182, kg, PRN Nausea & Vomiting, Start date: 09/07/12 10:30:00 IVP No Longer Active Hemmad 09/07/2012 [facility] acetaminophen-hydrocodone 325 mg-10 mg/1 5 mL oral solution 15 mL, Route: PO, Drug Form: SOLN, Dosin g Weight 83.182, kg, Q6H, PRN Pain, Start date: 09/07/12 10:30:00, Duration: 30 day, Stop date: 10/07/12 10:29:00 PO No Longer Active Hemmad 08/14 [facility] labetalol 5 mg, 1 mL, 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 tetanus-diphtheria toxoids adult intramu scular suspension 0.5 ml, Route: IM, Dosing Weight 82.727, kg, ONCE, STAT, Start date: 06/02/12 14:10:00, Stop date: 06/02/12 14:10:00 IM No Longer Active [place] 06/02/2012 [facility] Allergies, Adverse Reactions, Alerts No Known Medication Allergies Immunizations Immunization Date Given Site Status Last Updated Comments Source pneumococcal 13-valent vaccine 08/25/2018 Right Deltoid completed September [facility] tetanus-diphtheria toxoids Right deltoid completed [facility] tetanus-diphtheria toxoids completed [facility] tetanus-diphtheria toxoids Right deltoid completed [facility], [facility] [employer] Results Order Name Results Value Reference Range Date Interpretation Comments Source CHEM PANEL eGFR 10 08/25/2018 Result Comment: The eGFR is calculated using the CKD-EPI formula. In most young, healthy individuals the eGFR will be >90 mL/min/1.73m2. The eGFR declines with age. An eGFR of 60-89 may be normal in some populations, particularly the elderly, for whom the CKD-EPI formula has not been extensively validated. Use of the eGFR is not recommended in the following populations:

Individuals with unstable creatinine concentrations, including patients and those with serious co-morbid conditions.

Patients with extremes in muscle mass or diet.

The data above are obtained from the National Kidney Disease Education Program (NKDEP) which additionally recommends that when the eGFR is used in patients with extremes of body mass index for purposes of drug dosing, the eGFR should be multiplied by the estimated BMI. [facility] CHEM PANEL Calcium Lvl 8.5 8.5 - 10.5 08/25/2018 [facility] CHEM PANEL CO2 23 24 - 32 08/25/2018 [facility] CHEM PANEL AGAP 14.0 10.0 - 20.0 08/25/2018 [facility] CHEM PANEL Glucose Lvl 141 70 - 99 08/25/2018 [facility] CHEM PANEL BUN 66 7 - 22 08/25/2018 [facility] CHEM PANEL Potassium Lvl 4.0 3.5 - 5.1 08/25/2018 [facility] CHEM PANEL Chloride Lvl 111 95 - 109 08/25/2018 [facility] CHEM PANEL Creatinine Lvl 4.49 0.50 - 1.40 08/25/2018 [facility] CHEM PANEL Sodium Lvl 144 135 - 145 08/25/2018 [facility] ELECTROLYTES Chloride Lvl 108 95 - 109 08/24/2018 [facility] ELECTROLYTES Calcium Lvl 8.3 8.5 - 10.5 08/24/2018 [facility] ELECTROLYTES AGAP 12.0 10.0 - 20.0 08/24/2018 [facility] ELECTROLYTES CO2 23 24 - 32 08/24/2018 [facility] ELECTROLYTES eGFR 9 08/24/2018 Result Comment: The eGFR is calculated using the CKD-EPI formula. In most young, healthy individuals the eGFR will be >90 mL/min/1.73m2. The eGFR declines with age. An eGFR of 60-89 may be normal in some populations, particularly the elderly, for whom the CKD-EPI formula has not been extensively validated. Use of the eGFR is not recommended in the following populations:

Individuals with unstable creatinine concentrations, including patients and those with serious co-morbid conditions.

Patients with extremes in muscle mass or diet.

The data above are obtained from the National Kidney Disease Education Program (NKDEP) which additionally recommends that when the eGFR is used in patients with extremes of body mass index for purposes of drug dosing, the eGFR should be multiplied by the estimated BMI. [facility] ELECTROLYTES Glucose Lvl 205 70 - 99 08/24/2018 [facility] ELECTROLYTES Creatinine Lvl 4.6 7 0.50 - 1.40 08/24/2018 [facility] ELECTROLYTES Sodium Lvl 139 135 - 145 08/24/2018 [facility] ELECTROLYTES BUN 70 7 - 22 08/24/2018 [facility] ELECTROLYTES Potassium Lvl 4.0 3.5 - 5.1 08/24/2018 [facility] URINE AND STOOL UA Amorph Luly Occasional /HPF None Seen /HPF 08/24/[address] [facility] [address] URINE AND STOOL UA RBC 1 0 - 2 08/24/2018 [facility] URINE AND STOOL UA Bacteria Occasional /HPF None Seen /HPF 08/24/[address] [facility] [address] URINE AND STOOL UA Sq Epi Few /LPF Few /LPF 08/24/2018 [facility] URINE AND STOOL UA WBC 1 0 - 5 08/24/2018 [facility] URINE AND STOOL UA Blood Negative (08/24/18 12:15 AM) Negative 08/24/2018 [facility] URINE AND STOOL UA Bili Negative *NA* (08/24/18 12:15 AM) Negative 08/24/2018 [facility] URINE AND STOOL UA pH 5.0 5.0 - 8.0 08/24/2018 [facility] URINE AND STOOL UA Spec Grav 1.012 <=1.030 08/24/2018 [facility] URINE AND STOOL UA Nitrite Negative (08/24/18 12:15 AM) Negative 08/24/2018 [facility] URINE AND STOOL UA Leuk Est Negative (08/24/18 12:15 AM) Negative 08/24/2018 [facility] URINE AND STOOL UA Urobilinogen <=1.0 mg/dL 0.1 - 1.0 08/24/2018 [facility] URINE AND STOOL UA Ketones Negative *NA* (08/24/18 12:15 AM) Negative 08/24/2018 [facility] URINE AND STOOL UA Protein 100 mg/dL Negative mg/dL 08/24/2018 [facility] URINE AND STOOL UA Glucose 150 mg/dL Negative mg/dL 08/24/2018 [facility] URINE AND STOOL UA Turbidity Slight *ABN* (08/24/18 12:15 AM) Clear 08/24/2018 [facility] URINE AND STOOL UA Color Yellow *NA* (08/24/18 12:15 AM) Yellow 08/24/2018 [facility] CHEM PANEL Lipase Lvl 600 73 - 393 08/24/2018 [facility] CHEM PANEL eGFR 8 08/24/2018 Result Comment: The eGFR is calculated using the CKD-EPI formula. In most young, healthy individuals the eGFR will be >90 mL/min/1.73m2. The eGFR declines with age. An eGFR of 60-89 may be normal in some populations, particularly the elderly, for whom the CKD-EPI formula has not been extensively validated. Use of the eGFR is not recommended in the following populations:

Individuals with unstable creatinine concentrations, including patients and those with serious co-morbid conditions.

Patients with extremes in muscle mass or diet.

The data above are obtained from the National Kidney Disease Education Program (NKDEP) which additionally recommends that when the eGFR is used in patients with extremes of body mass index for purposes of drug dosing, the eGFR should be multiplied by the estimated BMI. [facility] CHEM PANEL Bili Total 0.5 0.2 - 1.3 08/24/2018 [facility] CHEM PANEL AST 18 0 - 37 08/24/2018 [facility] CHEM PANEL Alk Phos 127 39 - 136 08/24/2018 [facility] CHEM PANEL Glucose Lvl 187 70 - 99 08/24/2018 [facility] CHEM PANEL BUN 72 7 - 22 08/24/2018 [facility] CHEM PANEL Potassium Lvl 4.1 3.5 - 5.1 08/24/2018 [facility] CHEM PANEL Chloride Lvl 107 95 - 109 08/24/2018 [facility] CHEM PANEL Creatinine Lvl 5.01 0.50 - 1.40 08/24/2018 [facility] CHEM PANEL Sodium Lvl 141 135 - 145 08/24/2018 [facility] CHEM PANEL CO2 26 24 - 32 08/24/2018 [facility] CHEM PANEL Albumin Lvl 3.6 3.5 - 5.0 08/24/2018 [facility] CHEM PANEL ALT 22 0 - 65 08/24/2018 [facility] CHEM PANEL Calcium Lvl 9.0 8.5 - 10.5 08/24/2018 [facility] CHEM PANEL Total Protein 7.9 6.4 - 8.4 08/24/2018 [facility] CHEM PANEL B/C Ratio 14 6 - 25 08/24/2018 [facility] CHEM PANEL AGAP 12.1 10.0 - 20.0 08/24/2018 [facility] CHEM PANEL Globulin 4.3 2.7 - 4.2 08/24/2018 [facility] CHEM PANEL A/G Ratio 0.8 0.7 - 1.6 08/24/2018 [facility] MPV 8.2 7.4 - 10.4 08/24/2018 [facility] HEMATOLOGY Platelet 337 133 - 450 08/24/2018 [facility] HEMATOLOGY Hct 33.6 36.0 - 48.0 08/24/2018 [facility] MCH 29.9 27.0 - 31.0 08/24/2018 [facility] MCV 92.8 80.0 - 98.0 08/24/2018 [facility] RDW 14.8 11.5 - 14.5 08/24/2018 [facility] MCHC 32.2 32.0 - 36.0 08/24/2018 [facility] Hgb 10.8 12.0 - 16.0 08/24/2018 [facility] HEMATOLOGY RBC 3.63 4.20 - 5.40 08/24/2018 [facility] WBC 7.0 3.7 - 10.4 08/24/2018 [facility] HEMATOLOGY Eosinophils 0.5 0.0 - 4.0 08/24/2018 [facility] Monocytes 2.5 2.0 - 12.0 08/24/2018 [facility] HEMATOLOGY Segs 84.0 45.0 - 75.0 08/24/2018 [facility] Lymphocytes 12.0 20.0 - 40.0 08/24/2018 [facility] Basophils # 0.1 0.0 - 0.2 08/24/2018 [facility] Monocytes # 0.2 0.0 - 0.8 08/24/2018 [facility] Lymphocytes # 0.8 1.0 - 5.5 08/24/2018 [facility] HEMATOLOGY Neutrophils # 5.9 1.5 - 8.1 08/24/2018 [facility] HEMATOLOGY Basophils 1.0 0.0 - 1.0 08/24/2018 [facility] PARATHYROID PROFILE Ca Norm WB 0.90 1.05 - 1.25 07/26/2017 Result Comment: Critical Result(s) negra Humphreys at 07/25/2017 21:47 by MS. Read back OK. [facility] PARATHYROID PROFILE Ca Ion WB 0.95 1.05 - 1.25 07/26/2017 [facility] CHEM PANEL Ketone Quantitative 0.07 <=0.27 mmol/L 07/25/2017 [facility] CHEM PANEL eGFR 14 07/25/2017 Result Comment: The eGFR is calculated using the CKD-EPI formula. In most young, healthy individuals the eGFR will be >90 mL/min/1.73m2. The eGFR declines with age. An eGFR of 60-89 may be normal in some populations, particularly the elderly, for whom the CKD-EPI formula has not been extensively validated. Use of the eGFR is not recommended in the following populations:

Individuals with unstable creatinine concentrations, including patients and those with serious co-morbid conditions.

Patients with extremes in muscle mass or diet.

The data above are obtained from the National Kidney Disease Education Program (NKDEP) which additionally recommends that when the eGFR is used in patients with extremes of body mass index for purposes of drug dosing, the eGFR should be multiplied by the estimated BMI. [facility] CHEM PANEL Alk Phos 240 39 - 136 07/25/2017 [facility] CHEM PANEL AST 38 0 - 37 07/25/2017 [facility] CHEM PANEL ALT 43 0 - 65 07/25/2017 [facility] CHEM PANEL A/G Ratio 0.6 0.7 - 1.6 07/25/2017 [facility] CHEM PANEL Albumin Lvl 2.8 3.5 - 5.0 07/25/2017 [facility] CHEM PANEL Total Protein 7.5 6.4 - 8.4 07/25/2017 [facility] CHEM PANEL Globulin 4.7 2.7 - 4.2 07/25/2017 [facility] CHEM PANEL B/C Ratio 9 6 - 25 07/25/2017 [facility] CHEM PANEL Calcium Lvl 6.9 8.5 - 10.5 07/25/2017 Result Comment: Critical Result(s) negra saldana at 07/25/2017 17:04 by [place]. Read back OK. [facility] CHEM PANEL Bili Total 0.5 0.2 - 1.3 07/25/2017 [facility] CHEM PANEL AGAP 16.4 10.0 - 20.0 07/25/2017 [facility] CHEM PANEL CO2 22 24 - 32 07/25/2017 [facility] CHEM PANEL Chloride Lvl 104 95 - 109 07/25/2017 [facility] [facility] CHEM PANEL Creatinine Lvl 3.21 0.50 - 1.40 07/25/2017 [facility] CHEM PANEL BUN 30 7 - 22 07/25/2017 [facility] CHEM PANEL Potassium Lvl 4.4 3.5 - 5.1 07/25/2017 [facility] CHEM PANEL Sodium Lvl 138 135 - 145 07/25/2017 [facility] CHEM PANEL Glucose Lvl 277 70 - 99 07/25/2017 [facility] HEMATOLOGY MCV 85.9 80.0 - 98.0 07/25/2017 [facility] HEMATOLOGY RDW 13.4 11.5 - 14.5 07/25/2017 [facility] HEMATOLOGY MPV 7.6 7.4 - 10.4 07/25/2017 [facility] HEMATOLOGY MCH 28.6 27.0 - 31.0 07/25/2017 [facility] HEMATOLOGY MCHC 33.3 32.0 - 36.0 07/25/2017 [facility] HEMATOLOGY Hgb 10.8 12.0 - 16.0 07/25/2017 [facility] HEMATOLOGY Hct 32.5 36.0 - 48.0 07/25/2017 [facility] HEMATOLOGY RBC 3.78 4.20 - 5.40 07/25/2017 [facility] HEMATOLOGY WBC 7.5 3.7 - 10.4 07/25/2017 [facility] HEMATOLOGY Platelet 400 133 - 450 07/25/2017 [facility] HEMATOLOGY Basophils # 0.1 0.0 - 0.2 07/25/2017 [facility] HEMATOLOGY Eosinophils # 0.2 0.0 - 0.5 07/25/2017 [facility] HEMATOLOGY Monocytes # 0.5 0.0 - 0.8 07/25/2017 [facility] HEMATOLOGY Lymphocytes # 1.5 1.0 - 5.5 07/25/2017 [facility] HEMATOLOGY Basophils 1.2 0.0 - 1.0 07/25/2017 [facility] HEMATOLOGY Segs-Bands # 5.3 1.5 - 8.1 07/25/2017 [facility] HEMATOLOGY Lymphocytes 19.5 20.0 - 40.0 07/25/2017 [facility] HEMATOLOGY Monocytes 6.1 2.0 - 12.0 07/25/2017 [facility] HEMATOLOGY Eosinophils 2.7 0.0 - 4.0 07/25/2017 [facility] HEMATOLOGY Segs 70.5 45.0 - 75.0 07/25/2017 [facility] CARDIAC ENZYMES CK MB Index 1.4 0.0 - 2.5 10/19/2016 [facility] CARDIAC ENZYMES BNP 124 <=100 pg/mL 10/19/2016 [facility] CARDIAC ENZYMES Troponin-I <0.02 0.00 - 0.40 10/19/2016 [facility] CARDIAC ENZYMES Total CK 58 12 - 191 10/19/2016 [facility] CARDIAC ENZYMES CK MB 0.8 0.5 - 3.6 10/19/2016 [facility] CHEM PANEL eGFR 20 10/19/2016 Result Comment: The eGFR is calculated using the CKD-EPI formula. In most young, healthy individuals the eGFR will be >90 mL/min/1.73m2. The eGFR declines with age. An eGFR of 60-89 may be normal in some populations, particularly the elderly, for whom the CKD-EPI formula has not been extensively validated. Use of the eGFR is not recommended in the following populations:

Individuals with unstable creatinine concentrations, including patients and those with serious co-morbid conditions.

Patients with extremes in muscle mass or diet.

The data above are obtained from the National Kidney Disease Education Program (NKDEP) which additionally recommends that when the eGFR is used in patients with extremes of body mass index for purposes of drug dosing, the eGFR should be multiplied by the estimated BMI. [facility] CHEM PANEL A/G Ratio 0.8 0.7 - 1.6 10/19/2016 [facility] CHEM PANEL Bili Total 1.0 0.2 - 1.3 10/19/2016 [facility] CHEM PANEL Globulin 3.8 2.7 - 4.2 10/19/2016 [facility] CHEM PANEL AGAP 12.1 10.0 - 20.0 10/19/2016 [facility] CHEM PANEL B/C Ratio 11 6 - 25 10/19/2016 [facility] CHEM PANEL Alk Phos 167 39 - 136 10/19/2016 [facility] CHEM PANEL AST 9 0 - 37 10/19/2016 [facility] CHEM PANEL Albumin Lvl 3.0 3.5 - 5.0 10/19/2016 [facility] CHEM PANEL ALT 15 0 - 65 10/19/2016 [facility] CHEM PANEL Total Protein 6.8 6.4 - 8.4 10/19/2016 [facility] CHEM PANEL Calcium Lvl 7.8 8.5 - 10.5 10/19/2016 [facility] CHEM PANEL CO2 24 24 - 32 10/19/2016 [facility] CHEM PANEL Potassium Lvl 4.1 3.5 - 5.1 10/19/2016 [facility] CHEM PANEL Sodium Lvl 140 135 - 145 10/19/2016 [facility] CHEM PANEL Chloride Lvl 108 95 - 109 10/19/2016 [facility] CHEM PANEL Creatinine Lvl 2.50 0.50 - 1.40 10/19/2016 [facility] CHEM PANEL Glucose Lvl 255 70 - 99 10/19/2016 [facility] CHEM PANEL BUN 27 7 - 22 10/19/2016 [facility] HEMATOLOGY Monocytes # 0.4 0.0 - 0.8 10/19/2016 [facility] HEMATOLOGY Lymphocytes # 1.7 1.0 - 5.5 10/19/2016 [facility] HEMATOLOGY Segs-Bands # 6.2 1.5 - 8.1 10/19/2016 [facility] HEMATOLOGY Basophils # 0.1 0.0 - 0.2 10/19/2016 [facility] HEMATOLOGY Eosinophils # 0.3 0.0 - 0.5 10/19/2016 [facility] HEMATOLOGY Monocytes 4.9 2.0 - 12.0 10/19/2016 [facility] HEMATOLOGY Lymphocytes 19.6 20.0 - 40.0 10/19/2016 [facility] HEMATOLOGY Segs 71.9 45.0 - 75.0 10/19/2016 [facility] HEMATOLOGY Basophils 0.6 0.0 - 1.0 10/19/2016 [facility] HEMATOLOGY Eosinophils 3.0 0.0 - 4.0 10/19/2016 [facility] HEMATOLOGY RBC 3.48 4.20 - 5.40 10/19/2016 [facility] HEMATOLOGY WBC 8.6 3.7 - 10.4 10/19/2016 [facility] HEMATOLOGY MCV 87.2 80.0 - 98.0 10/19/2016 [facility] HEMATOLOGY Hct 30.4 36.0 - 48.0 10/19/2016 [facility] Hgb 10.1 12.0 - 16.0 10/19/2016 [facility] MPV 6.9 7.4 - 10.4 10/19/2016 [facility] MCH 29.0 27.0 - 31.0 10/19/2016 [facility] MCHC 33.3 32.0 - 36.0 10/19/2016 [facility] HEMATOLOGY Platelet 347 133 - 450 10/19/2016 [facility] HEMATOLOGY RDW 14.1 11.5 - 14.5 10/19/2016 [facility] HEMATOLOGY PT 13.8 12.0 - 14.7 10/19/2016 [facility] HEMATOLOGY INR 1.04 0.85 - 1.17 10/19/2016 [facility] HEMATOLOGY PTT 31.3 22.9 - 35.8 10/19/2016 [facility] URINE AND STOOL UA Urobilinogen <=1.0 mg/dL 0.1 - 1.0 10/19/2016 [facility] URINE AND STOOL UA Sq Epi None Seen 10/19/2016 [facility] URINE AND STOOL UA Leuk Est Large *ABN* (10/19/16 1:16 PM) Negative 10/19/2016 [facility] URINE AND STOOL UA RBC 14 0 - 2 10/19/2016 [facility] URINE AND STOOL UA Blood Negative (10/19/16 1:16 PM) Negative 10/19/2016 [facility] URINE AND STOOL UA Nitrite Negative (10/19/16 1:16 PM) Negative 10/19/2016 [facility] URINE AND STOOL UA Bacteria Moderate /HPF None Seen /HPF 10/19/2016 [facility] URINE AND STOOL UA WBC >182 0 - 5 10/19/2016 [facility] URINE AND STOOL UA Color Yellow *NA* (10/19/16 1:16 PM) Yellow 10/19/2016 [facility] URINE AND STOOL UA pH 5.0 5.0 - 8.0 10/19/2016 [facility] URINE AND STOOL UA Glucose 150 mg/dL Negative mg/dL 10/19/2016 [facility] URINE AND STOOL UA Turbidity Marked *ABN* (10/19/16 1:16 PM) Clear 10/19/2016 [facility] URINE AND STOOL UA Spec Grav 1.014 <=1.030 10/19/2016 [facility] URINE AND STOOL UA Protein 100 mg/dL Negative mg/dL 10/19/2016 [facility] URINE AND STOOL UA Bili Negative *NA* (10/19/16 1:16 PM) Negative 10/19/2016 [facility] URINE AND STOOL UA Ketones Negative mg/dL Negative mg/dL 10/19/2016 [facility] CHEM PANEL eGFR 19 02/18/2016 Result Comment: The eGFR is calculated using the CKD-EPI formula. In most young, healthy individuals the eGFR will be >90 mL/min/1.73m2. The eGFR declines with age. An eGFR of 60-89 may be normal in some populations, particularly the elderly, for whom the CKD-EPI formula has not been extensively validated. Use of the eGFR is not recommended in the following populations:

Individuals with unstable creatinine concentrations, including patients and those with serious co-morbid conditions.

Patients with extremes in muscle mass or diet.

The data above are obtained from the National Kidney Disease Education Program (NKDEP) which additionally recommends that when the eGFR is used in patients with extremes of body mass index for purposes of drug dosing, the eGFR should be multiplied by the estimated BMI. [facility] CHEM PANEL Creatinine Lvl 2.60 0.50 - 1.40 02/18/2016 [facility] CHEM PANEL CO2 23 24 - 32 02/18/2016 [facility] CHEM PANEL Potassium Lvl 4.4 3.5 - 5.1 02/18/2016 [facility] CHEM PANEL Sodium Lvl 137 135 - 145 02/18/2016 [facility] CHEM PANEL Chloride Lvl 105 95 - 109 02/18/2016 [facility] CHEM PANEL Calcium Lvl 8.0 8.5 - 10.5 02/18/2016 [facility] CHEM PANEL Glucose Lvl 229 70 - 99 02/18/2016 [facility] CHEM PANEL BUN 27 7 - 22 02/18/2016 [facility] CHEM PANEL AGAP 13.4 10.0 - 20.0 02/18/2016 [facility] HEMATOLOGY RBC 4.34 4.20 - 5.40 02/18/2016 [facility] HEMATOLOGY WBC 6.9 3.7 - 10.4 02/18/2016 [facility] HEMATOLOGY Hct 35.6 36.0 - 48.0 02/18/2016 [facility] HEMATOLOGY Hgb 12.0 12.0 - 16.0 02/18/2016 [facility] HEMATOLOGY Platelet 408 133 - 450 02/18/2016 [facility] HEMATOLOGY RDW 14.6 11.5 - 14.5 02/18/2016 [facility] HEMATOLOGY MCH 27.7 27.0 - 31.0 02/18/2016 [facility] MCHC 33.8 32.0 - 36.0 02/18/2016 [facility] HEMATOLOGY MPV 7.6 7.4 - 10.4 02/18/2016 [facility] MCV 82.0 80.0 - 98.0 02/18/2016 [facility] Segs-Bands # 4.9 1.5 - 8.1 02/18/2016 [facility] HEMATOLOGY Eosinophils # 0.1 0.0 - 0.5 02/18/2016 [facility] HEMATOLOGY Monocytes # 0.3 0.0 - 0.8 02/18/2016 [facility] HEMATOLOGY Lymphocytes # 1.5 1.0 - 5.5 02/18/2016 [facility] HEMATOLOGY Basophils 0.9 0.0 - 1.0 02/18/2016 [facility] HEMATOLOGY Eosinophils 2.0 0.0 - 4.0 02/18/2016 [facility] HEMATOLOGY Basophils # 0.1 0.0 - 0.2 02/18/2016 [facility] HEMATOLOGY Monocytes 4.4 2.0 - 12.0 02/18/2016 [facility] HEMATOLOGY Lymphocytes 21.4 20.0 - 40.0 02/18/2016 [facility] HEMATOLOGY Segs 71.3 45.0 - 75.0 02/18/2016 [facility] URINE AND STOOL UA Urobilinogen <=1.0 mg/dL 0.1 - 1.0 02/18/2016 [facility] URINE AND STOOL UA Mucus Few /LPF None Seen /LPF 02/18/2016 [facility] URINE AND STOOL UA Sq Epi Few /LPF Few /LPF 02/18/2016 [facility] URINE AND STOOL UA Leuk Est Trace *ABN* (02/18/16 1:44 PM) Negative 02/18/2016 [facility] URINE AND STOOL UA Bacteria Few /HPF None Seen /HPF 02/18/2016 [facility] URINE AND STOOL UA WBC 5 0 - 5 02/18/2016 [facility] URINE AND STOOL UA RBC 1 0 - 2 02/18/2016 [facility] URINE AND STOOL UA Nitrite Negative (02/18/16 1:44 PM) Negative 02/18/2016 [facility] URINE AND STOOL UA Blood Negative (02/18/16 1:44 PM) Negative 02/18/2016 [facility] URINE AND STOOL UA Ketones Negative mg/dL Negative mg/dL 02/18/2016 [facility] URINE AND STOOL UA Bili Negative *NA* (02/18/16 1:44 PM) Negative 02/18/2016 [facility] URINE AND STOOL UA Protein 100 mg/dL Negative mg/dL 02/18/2016 [facility] URINE AND STOOL UA Glucose 50 mg/dL Negative mg/dL 02/18/2016 [facility] URINE AND STOOL UA pH 5.0 5.0 - 8.0 02/18/2016 [facility] URINE AND STOOL UA Turbidity Slight *ABN* (02/18/16 1:44 PM) Clear 02/18/2016 [facility] URINE AND STOOL UA Spec Grav 1.018 <=1.030 02/18/2016 [facility] URINE AND STOOL UA Color Yellow *NA* (02/18/16 1:44 PM) Yellow 02/18/2016 [facility] CHEMISTRY eGFR 28 09/07/2012 NA <sup>2</sup>Result Comment: The eGFR is calculated using the CKD-EPI formula. In most young, healthy individuals the eGFR will be >90 mL/min/1.73m2. The eGFR declines with age. An eGFR of 60-89 may be normal in some populations, particularly the elderly, for whom the CKD-EPI formula has not been extensively validated. Use of the eGFR is not recommended in the following populations:& lt;br/>
Individuals with unstable creatinine concentrations, including patients and those with serious co-morbid conditions.

Patients with extremes in muscle mass or diet.

The data above are obtained from the National Kidney Disease Education Program (NKDEP) which additionally recommends that when the eGFR is used in patients with extremes of body mass index for purposes of drug dosing, the eGFR should be multiplied by the estimated BMI. [facility] CHEMISTRY Globulin 3.9 2.0 - 4.0 09/07/2012 Normal [facility] CHEMISTRY CO2 25 24 - 32 09/07/2012 Normal [facility] CHEMISTRY Bili Total 0.4 0.2 - 1.3 09/07/2012 Normal [facility] CHEMISTRY Calcium Lvl 8.7 8.5 - 10.5 09/07/2012 Normal [facility] CHEMISTRY Total Protein 7.6 6.4 - 8.4 09/07/2012 Normal [facility] CHEMISTRY AST 8 0 - 37 09/07/2012 Normal [facility] CHEMISTRY AGAP 13.7 10.0 - 20.0 09/07/2012 Normal [facility] CHEMISTRY B/C Ratio 12 6 - 25 09/07/2012 Normal [facility] CHEMISTRY A/G Ratio 0.9 0.7 - 1.6 09/07/2012 Normal [facility] CHEMISTRY Chloride Lvl 105 95 - 109 09/07/2012 Normal [facility] CHEMISTRY Creatinine Lvl 1.9 0.5 - 1.4 09/07/2012 [facility] CHEMISTRY Sodium Lvl 140 135 - 145 09/07/2012 Normal [facility] CHEMISTRY BUN 23 7 - 22 09/07/2012 [facility] CHEMISTRY Potassium Lvl 3.7 3.5 - 5.1 09/07/2012 Normal [facility] CHEMISTRY Glucose Lvl 94 70 - 99 09/07/2012 Normal <sup>3</sup>Interpretive Data: Adult ref erence range values reflect the clinical guidelines
of the [place]. [facility] CHEMISTRY Albumin Lvl 3.7 3.5 - 5.0 09/07/2012 Normal [facility] CHEMISTRY ALT 14 0 - 65 09/07/2012 Normal [facility] CHEMISTRY Alk Phos 103 39 - 136 09/07/2012 Normal [facility] BEDSIDE GLUCOSE TESTING Gluc POC Lif scn 112 70 - 99 09/07/2012 [place] <sup>1</sup>Interpretive Data: Upper Reportable Limit: 200 mg/dL. [facility] Pathology Reports No Data Provided for This Section Diagnostic Reports Report Value Date Source Renal Stone CT CT ABDOMEN PELV IS WITHOUT CONTRAST (RENAL STONE): HISTORY: Back pain for 2 weeks, acute nausea and vomiting. TECHNIQUE: Multislice axial acquisition of the abdomen and pelvis targeted to the urinary tract was done without contrast. Sagittal and coronal reconstructions were also done. DLP 1076.53 mGycm. FINDINGS: There is no evidence of urinary tract calculus or hydronephrosis. There is a 1.3 cm high attenuation cyst in the anterior right mid kidney developing since the CT on 02/18/2016. Another tiny subcentimeter cystic high density cyst in the lateral right mid kidney is also seen. A small low- attenuation cyst in the upper pole of the left kidney seen on the previous CT is not as well visualized. The small cyst in the lower pole of the left kidney is unchanged. There are no other significant renal abnormalities. The urinary bladder is unremarkable except for a small gas bubble, probably iatrogenically introduced. The appendix is normal. There are no other significant gastrointestinal tract abnormalities. There is a 3.6 cm in left ovarian cyst showing a slight increase in size compared to the previous CT. The uterus is absent. There is no other intra- abdominal mass or free fluid. Atherosclerotic changes in the aortoiliac segment are seen without other significant retroperitoneal abnormalities. There are no acute osseous abnormalities. There are no significant abnormalities of the visible lung bases or lower pleural spaces. IMPRESSION: 1. No evidence of urinary tract calculus or hydronephrosis. 2. Small high attenuation cysts in the r ight kidney developing since 02/18/2016. 3. Left ovarian cyst slightly increased in size compared to the previous study. 4. No other acute CT abnormalities of th e abdomen or pelvis E SL DLAWRENCE-PC 08/23/2018 [facility] Retroperitoneal Complete US EX AM: US RETROPERITONEAL COMPLETE DATE: 10/31/2017 7:53 AM CDT INDICATION: - Q61.9 Cystic kidney disease, unspecified. Back pain for 4 months. ADDITIONAL INFORMATION: None. COMPARISON: CT scan of the abdomen and pelvis without contrast of 02/18/2016. TECHNIQUE: Multiplanar grayscale and color Doppler ultrasound images of the kidneys, aorta, IVC and urinary bladder. DISCUSSION: Right kidney Hydronephrosis: None. Size: 9.7 x 5.3 x 4.9 cm Echogenicity: Diffuse increased renal cortical echogenicity. Parenchymal thickness and contour: Normal. Calculi: None. Cysts: An anechoic avascular thin-walled simple cyst is seen in the mid right kidney measuring 1.3 x 1.3 x 1.3 cm. Masses: None. Left kidney Hydronephrosis: None. Size: 11.1 x 5.4 x 4.7 cm Echogenicity: Diffuse increased renal cortical echogenicity. Parenchymal thickness and contour: Normal. Calculi: None. Cysts: Multiple anechoic avascular thin-walled simple cysts are seen in the left kidney: 2.3 x 1.5 x 1.6 cm left upper, 1.6 x 1.3 x 1.4 cm left lower, 2.5 x 1.4 x 1.5 cm left lower.. Masses: None. Abdominal aorta:There is no sonographic evidence of aneurysm or of dissection. IVC: Normal. Bladder: No wall thickening, masses, or calculi are seen. Normal ureteral jets are seen confirming bilateral ureteral patency. IMPRESSION: 1. Diffuse increased renal cortical echo genicity bilaterally, a finding most commonly related to underlying medical renal disease. 2. Simple cysts in the bilateral kidneys . 3. No renal calculi are seen. No bladder calculi are demonstrated. The ureters are patent. 10/31/2017 [facility] Knee series 3 views DX Study: 3 views of right knee joint. History: Knee pain. Comments: Decreased bone mineralization. No acute fracture or dislocation. There is tricompartmental osteophytosis suggesting mild degenerative arthritis. Chondrocalcinosis in the tibiofemoral compartment. IMPRESSION: No acute fracture or dislocation. 07/25/2017 [facility] Ext Lower Venous Doppler [facility] Patient Name: TAY HERNANDEZ : 1950; Age: 67 years y/o Female MR: [id number] * RIGHT LOWER EXTREMITY VENOUS DOPPLER HISTORY: Right lower extremity pain and edema. Concern for deep venous thrombosis. Comparison: None TECHNIQUE: Sonographic evaluation of the right lower extremity venous system was performed from the popliteal fossa to the inguinal ligament using high resolution grayscale B-mode imaging, along with pulse (spectral) and color Doppler imaging. FINDINGS: * Right lower extremity: The right common femoral vein, superficial femoral vein, popliteal vein and visualized posterior tibial/calf veins are patent and compressible with good flow. There is good spontaneous phasic venous flow with good augmentation with calf compression. This constitutes a normal examination. IMPRESSION: Negative venous Doppler of the right lower extremity. Specifically, there is no evidence of deep venous thrombosis or venous obstruction. SL: ROSALIND-PC 07/25/2017 [facility] Chest 1view DX Patient Name: Sánchez HERNANDEZ : 1950; Age: 66 years y/o Female MR: [id number] * CHEST, portable, 1 view HISTORY: Chest pain. COMPARISON: 09/22/2011. TECHNIQUE: A portable frontal radiograph of the chest was obtained. FINDINGS: The lungs are clear. There are no pleural effusions. There is mild cardiomegaly. There is no evidence of failure. The regional skeleton is unremarkable. IMPRESSION: 1. No active disease. 2. Mild cardiomegaly. SL: [id number] 10/19/2016 [facility] Renal Stone CT Patient Name: Sánchez HERNANDEZ : 1950; Age: 65 years y/o Female MR: [id number] Study: Renal Stone CT 02/18/2016 1:38 PM CDT Ordering Physician: Clinical Indication: Abdominal pain, acute; Comparison: None TECHNIQUE: Noncontrasted helical imaging was performed from the kidneys through the symphysis as a renal stone protocol. Multiplanar reformations are available. CT Radiation Dose: DLP = 1233 mGy-cm FINDINGS: This examination is limited for the evaluation of solid organs and vascular structures due to withheld intravenous contrast -- the standard for urinary calculus assessment CT. KIDNEYS: No urinary calculi, hydronephrosis or perinephric stranding. 2.5 cm water density cyst in the right renal upper pole cortex. 2 cm exophytic cortical cyst left renal lower pole. Additional 1.5 cm cyst within the left renal lower pole cortex. LOWER CHEST: The lung bases are clear. SOLID ORGANS: The visualized liver, spleen, pancreas, and adrenal glands are normal. BOWEL: No acute bowel pathology. PERITONEUM: No free intraperitoneal fluid or air. RETROPERITONEUM: No adenopathy. Aorta is normal. PELVIS: No pelvic mass. The urinary bladder is normal. MUSCULOSKELETAL: The skeleton is intact. IMPRESSION: No acute findings. SL: [id number] 02/18/2016 [facility] Consultation Notes No Data Provided for This Section Discharge Summaries No Data Provided for This Section History and Physicals No Data Provided for This Section Vital Signs Vital Sign Value Date Comments Source Temperature Oral (F) 97.6 F 08/25/2018 [facility] Heart Rate 76 08/25/2018 [facility] Respitory Rate 18 08/25/2018 [facility] Systolic (mm Hg) 165 08/25/2018 [facility] Diastolic (mm Hg) 69 08/25/2018 [facility] Systolic (mm Hg) 152 08/25/2018 [facility] Diastolic (mm Hg) 63 08/25/2018 [facility] Respitory Rate 18 08/25/2018 [facility] Heart Rate 75 08/25/2018 [facility] Temperature Oral (F) 98.1 F 08/25/2018 [facility] Systolic (mm Hg) 135 08/25/2018 [facility] Diastolic (mm Hg) 63 08/25/2018 [facility] Respitory Rate 18 08/25/2018 [facility] Heart Rate 70 08/25/2018 [facility] Temperature Oral (F) 98.2 F 08/25/2018 [facility] Weight 76.903 08/24/2018 [facility] BMI Calculated 31.01 08/24/2018 [facility] Height 157.48 cm 08/24/2018 [facility] Weight 79.091 08/24/2018 [facility] BMI Calculated 31.89 08/24/2018 [facility] Height 157.48 cm 08/24/2018 [facility] Heart Rate 78 07/26/2017 [facility] Respitory Rate 18 07/26/2017 [facility] Systolic (mm Hg) 195 07/26/2017 [facility] Diastolic (mm Hg) 80 07/26/2017 [facility] Heart Rate 71 07/26/2017 [facility] Systolic (mm Hg) 188 07/26/2017 [facility] Diastolic (mm Hg) 84 07/26/2017 [facility] Respitory Rate 18 07/26/2017 [facility] Weight 84.091 07/25/2017 [facility] BMI Calculated 33.91 07/25/2017 [facility] Height 157.48 cm 07/25/2017 [facility] Respitory Rate 18 07/25/2017 [facility] Heart Rate 71 07/25/2017 [facility] Systolic (mm Hg) 197 07/25/2017 [facility] Diastolic (mm Hg) 86 07/25/2017 [facility] Systolic (mm Hg) 189 10/19/2016 [facility] Diastolic (mm Hg) 90 10/19/2016 [facility] Temperature Oral (F) 98.1 F 10/19/2016 [facility] Respitory Rate 17 10/19/2016 [facility] Respitory Rate 17 10/19/2016 [facility] Systolic (mm Hg) 176 10/19/2016 [facility] Diastolic (mm Hg) 87 10/19/2016 [facility] Systolic (mm Hg) 164 10/19/2016 [facility] Diastolic (mm Hg) 78 10/19/2016 [facility] Respitory Rate 17 10/19/2016 [facility] BMI Calculated 37.02 10/19/2016 [facility] Height 157.48 cm 10/19/2016 [facility] Temperature Oral (F) 98.9 F 10/19/2016 [facility] Heart Rate 96 10/19/2016 [facility] Weight 91.818 10/19/2016 [facility] Respitory Rate 17 02/18/2016 [facility] Heart Rate 89 02/18/2016 [facility] Systolic (mm Hg) 151 02/18/2016 [facility] Diastolic (mm Hg) 74 02/18/2016 [facility] Temperature Oral (F) 98.2 F 02/18/2016 [facility] Height 157.48 cm 02/18/2016 [facility] Weight 91.818 02/18/2016 [facility] Respitory Rate 18 02/18/2016 [facility] Temperature Oral (F) 98.4 F 02/18/2016 [facility] BMI Calculated 37.02 02/18/2016 [facility] Systolic (mm Hg) 144 02/18/2016 [facility] Diastolic (mm Hg) 99 02/18/2016 [facility] Heart Rate 97 02/18/2016 [facility] Respitory Rate 15 09/07/2012 [facility] Systolic (mm Hg) 122 09/07/2012 [facility] Diastolic (mm Hg) 60 09/07/2012 [facility] Diastolic (mm Hg) 74 09/07/2012 [facility] Systolic (mm Hg) 141 09/07/2012 [facility] Respitory Rate 10 09/07/2012 [facility] Systolic (mm Hg) 169 09/07/2012 [facility] Diastolic (mm Hg) 82 09/07/2012 [facility] Respitory Rate 10 09/07/2012 [facility] Heart Rate 84 09/07/2012 [facility] Weight 83.182 09/07/2012 [facility] Height 160.02 cm 09/07/2012 [facility] Weight 84.091 08/05/2012 [facility] Height 160.02 cm 08/05/2012 [facility] Encounters Location Location Details Encounter Type Encounter Number Reason For Visit Attending Provider ADM Date DC Date Status Source [facility] Emergency [id number] LAZARUS CASSIUS 08/05/2012 08/05/2012 Discharged [facility] DS [id number] SEBACEOUS CYST ON RIGHT SIDE OF FACE BENJAMÍN CLEOPATRA 09/07/2012 Active [facility] Emergency [id number] Miguel Abasilia Gautam 02/18/2016 02/18/2016 [facility] Emergency [id number] Jason Landon 10/19/2016 10/19/2016 [facility] Emergency [id number] Mark Redding 07/25/2017 07/26/2017 [facility] [employer] [facility] [id number] 00 Jose Antonio Nelson 10/31/2017 11/01/2017 [facility] Observation [id number] Bruce Huff 08/24/2018 08/25/2018 [facility] Procedures Procedure Code Date Perfomer Comments Source Anesthesia for vaginal hysterectomy [id number] [facility] OPID [employer] section [id number] [facility] Anesthesia for vaginal hysterectomy [id number] [facility] section [id number] [facility] Assessment and Plan Assessment and Plan Date Source Extracted from:Title: Clinical Document Author: Bruce Huff MD Date: 08/25/18 Date of Admission: 08/24/18 Date of Discharge: 08/25/18 DIAGNOSIS: -Back pain likely secondary to muscle sp asm, improved -Acute kidney injury on chronic kidney d isease stage III-IV, possible prerenal component -Nausea and vomiting likely secondary to possible gastroenteritis, resolved -Uncontrolled hypertension with nephropa thy -Chb-rshrndd-ftzbtetyq type 2 diabetes m omar CONSULTS: none PROCEDURES: Chief complaint , HPI and HOSPITAL COURSE: Patient with chronic kidney disease, hypertension came with back pain, workup negative for any acute etiology. 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 She is on transplant list Discharge condition: Stable Discharge to : Home Discharge Meds: Please see home medication reconciliation DC instructions: Home Care Instructions Notify Physician if any of the Following Occur : Bleeding, Fever, Nausea, Pain, Shortness of breath, Signs of infection Are There Any Activity Restrictions : No Discharge Diet Home Diet : Diet Renal 80,2,2,1 (pro, sod, pot, phos) Physician Follow-Up v2 Follow-Up With Provider : Non- physician Non Provider #1 : PCP Follow-Up Call : Call for appointment Follow-Up Within : 1 Week Reason : Primary Care Physician follow up post hospitalization I have seen and examined the patient on the day of discharge Time spent on discharge: Approximately 34 minutes, explaining about the diagnosis, new medications, prescriptions Extracted from:Title: Clinical Document Author: Bruce Huff MD Date: 08/24/18 Patient seen and examined H&P by overnight MD reviewed Complains of back pain Add Robaxin Creatinine slightly improved, continue IV fluids, repeat creatinine in a.m. Home in AM if creatinine continues to improve Extracted from:Title: History and Physical Author: Marta Ratliff MD Date: 08/24/18 68-year-old female with history of diabe dae, hypertension, hyperlipidemia, CKDwho presented to the EDwith worsening right flank pain, nausea andvomiting. SYDNEE on CKD - likely due to hypovolemia from vomitin g - start IVF - encourage PO water intake Right flank pain - appears to represent musculoskeletal p ain - stop baclofen and start tinazidine prn -dilaudid prn pain Intractable nausea/vomiting - diet as tolerated - antiemetics as needed DM - SSI HTN urgency -Due to missed doses of p.o. medication -Resume home medications, hydralazine AK N Heparin Observation, anticipate 1 midnight 08/25/2018 [facility] Plan of Care No Data Provided for This Section Social History Social History Date Source Social History TypeResponse Substance Abuse Use: None. Alcohol Never Smoking Status Never smoker; Ready to change: No; Concerns about tobacco use in household: No; Exposure to Tobacco Smoke None; Cigarette Smoking Last 365 Days No; Reg Smoking Cessation Counseling No entered on: 08/24/18 08/24/2018 [facility] Social History TypeResponse Smoking Status Never smoker; Ready to change: No; Concerns about tobacco use in household: No; Exposure to Tobacco Smoke None; Cigarette Smoking Last 365 Days No; Reg Smoking Cessation Counseling No entered on: 07/26/17 07/26/2017 [facility] Family History No Data Provided for This Section Advance Directives No Data Provided for This Section Functional Status No Data Provided for This Section
--- OUTSIDE RECORDS SUMMARY | 2020-02-09 13:58 | XMS REPORT | Clinical Summary ---
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 not 02/19/2018 on chronic [...] Lulu Rolle RN 03/19/2019 Telephone Transplant after 01/31/2019 Family History Medical History Relation Name Comments [...] VACCINE (#1) 2020 Results Not on fileafter 01/31/2019 Insurance Payer Benefit Subscriber ID Type Phone Address Plan / Group MEDICAID - MEDICAID [facility] xxxxxxxxx Medica id CARE COMM STAR Contracted PLAN [facility] xxxxxxxxx MEDICARE MGD CARE MEDICARE O MEDICAID MEDICAID xxxxxxxxx Medicaid [facility] OPTUM NON UNITED - OPTUM xxxxxxxxx MEDICAID MGD CARE [facility] xxxxxxxxx [place] [phone]
--- OUTSIDE RECORDS SUMMARY | 2020-02-09 14:00 | XMS REPORT | Clinical Summary ---
Author Author [facility] Organization [facility] Address Unknown Phone Unavailable Care Team Providers Care Craft Worker Name Role Phone Moises Jung MD PCP [...] Comments Vital Sign 146/60 07/19/2019 9:42 AM RELIEF CAPTAIN manual Blood Pressure 89 07/19/2019 9:36 AM RELIEF CAPTAIN Pulse 36.6 C (97.9 F) 07/19/2019 9:36 AM RELIEF CAPTAIN Temperature 19 07/19/2019 9:36 AM RELIEF CAPTAIN Respiratory Rate - - Oxygen Saturation - - Inhaled Oxygen Concentration 78.8 kg (173 lb 11.2 oz) 07/19/2019 9:36 AM RELIEF CAPTAIN Weight 157.9 cm (5' 2.17") 07/19/2019 9:36 AM RELIEF CAPTAIN Height 31.6 07/19/2019 9:36 AM RELIEF CAPTAIN Body Mass Index Plan of Treatment Health [...] BLOOD GLUCOSE Lifestyle No Belkys Banks i, JOB MOLDER Reduce pain Lifestyle No Nancy Bui, Supervisor Wrapping Room Eat Healthy Lifestyle Yes Nancy Bui Supervisor Wrapping Room Eat Healthy Lifestyle No Tabitha Kurtz LVN [...] URINALYSIS, MICROSCOPIC (07/22/2019 1:11 PM CDT) Pathologist [facility] RBC 11-21 (A) 0 - 4 /HPF [facility] WBC 5-20 (A) 0 - 5 /HPF [facility] Mucous Present (A) None seen /HPF [facility] Epithelial Cell 1/HPF (A) <1 /HPF [facility] Bacteria Moderate (A) None seen /HPF [facility] Granular Cast 0-1 None seen /LPF [facility] Specimen Urine Performing Organization Address [facility] one Number [facility] [address] [place] [address] [facility] * Urinalysis (07/22/2019 1:11 PM CDT) Pathologist [facility] Color Yellow Colorless, Straw, [facility] Yellow Clarity Clear Clear [facility] Spec [place], 1.025 1.005 - 1.035 [facility] Ur [...] [facility] Specimen Urine Performing Organization Address [facility] one Number [facility] [address] [place] [address] [phone] [facility] * Hemoglobin A1C (07/22/2019 1:11 PM CDT) Only the most recent of 2 results within the time period is included. Pathologist [facility] Hemoglobin A1c 10.4 (H) 4.3 - 6.1 % [facility] Estimated 252 (H) 70 - 110 mg/dL [facility] Average Glucose [facility] Specimen Blood Performing Organization Address [facility] one Number [facility] [address] [place] [address] * Electrolytes (07/22/2019 1:11 PM CDT) Pathologist [facility] Sodium 133 (L) 136 - 145 mmol/L [facility] Potassium 3.2 (L) 3.5 - 5.1 mmol/L [facility] Chloride 93 (L) 98 - 107 mmol/L [facility] CO2 25 21 - 31 mmol/L [facility] Anion Gap 15 5 - 16 mmol/L [facility] Specimen Blood Performing Organization Address [facility] one Number [facility] [address] [place] [address] * Liver Profile (07/22/2019 1:11 PM CDT) [facility] Total Protein 6.1 6.0 - 8.3 [...] [facility] Specimen Blood Performing Organization Address [facility] one Number [facility] [address] [place] [address] * Lipid Profile (07/22/2019 1:11 PM CDT) [facility] Cholesterol 123.0 <=200.0 mg/dL [facility] [...] triglyceride result gre ater than 440 mg/dL, [facility] consider re-testing when the patient is in a fasting state. Performing Organization Address [facility] one Number [facility] [address] [place] [address] * Glucose, Fasting (07/22/2019 1:11 PM CDT) [...] 140 mg/dL Specimen Blood Performing Organization Address [facility] one Number [facility] [address] [place] [address] [phone] * CBC (without differential) (07/22/2019 1:11 PM CDT) Pathologist [facility] WBC 16.2 (H) 4.5 - 11.0 K/uL [...] [facility] Specimen Blood Performing Organization Address [facility] one Number [facility] [address] [place] [address] * Urea Nitrogen/Creatinine (07/22/2019 1:11 PM CDT) Pathologist [facility] Urea Nitrogen 54.0 (H) 7.0 - 25.0 mg/dL [facility] Creatinine 5.1 (H) 0.6 - 1.2 mg/dL [facility] GFR, Estimated 8 (L) >=90 mL/min/1.73 m2 [facility] Specimen Blood Performing Organization Address City/State/Zipcode Ph one Number [facility] [address] [place] [address] * OPHTHALMOLOGY RETINAL SCAN (02/25/2019 11:09 AM [...] y/o, F (: , ) presented to [facility] on 02-25-2019 for a retinal imaging study of the left and right eye s. Based on the findings of the study, the following is recommended for STEPHANIE MURCIA Other Suspected Condition Found: Refer to [facility], next available appointment. For Follow-up at [facility]: The patient can be scheduled into any [facility] that has an ope n booking by calling the appointment center. Interpreting Provider's Comments: No comments provided Right Eye Findings: Negative for Diabetic Retinopathy. Other: Suspected Glaucoma Left Eye Findings: Diabetic Retinopathy: Mild Other: Suspected Glaucoma This result was electronically signed Adal Clark MD, , Taxonomy: [id number] on 02-25-2019 05:5 0:44 [facility] time. NOTE: Any pathology noted on this sarthak betic retinal evaluation should be confirmed by an appropriate ophthalmic examination. Performing Organization Address [facility]State[facility] one Number [facility] * DIABETIC FOOT [...] Effective Phone Address Plan / Dates Group [facility] xxxxxxxxx 2014-P [phone] [address] [employer] resent [address] [place] [address]
--- OUTSIDE RECORDS SUMMARY | 2020-02-09 14:00 | XMS REPORT | Clinical Summary ---
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
--- OUTSIDE RECORDS SUMMARY | 2020-02-09 14:00 | XMS REPORT | Continuity of Care Document ---
Author Author [facility] t Organization [facility] Address [address] [place] [address] Phone Unavailable Care Team Providers Care Corporate Investigator Name Role Phone NONSTAFF PCP Unavailable CHAYO ZAYAS Attphys Unavailable Erich VAZQUEZ, Nasima De Leon Attphys Kira Lozoya MD Attphys Xochitl VAZQUEZ, Rigo Attphys Babita VAZQUEZ, Corrine Mena Mai Attphys [phone] Marlo PIN CHASER, Melissa Attphys Sariah TOUSSAINT, Lulu Attphys Unavailable Best VAZQUEZ, Jam Attphys Sajja, Bruce Attphys NYASIA CONNOLLYAMIDIPAJENA Attphys Unavailable Jose Antonio Nelson Attphys Kira Redding Attphys BarbiRussel Jason Attphys GautamDerekantwon Nino Attphys CHAYO ZAYAS Admphys Unavailable RIGO LEUNG Admphys Unavailable Bruce Huff Admphys Payers Payer Name Policy Type Policy Number Effective Date Expiration Date Be dickerson [facility] [id number] 2019 00:00:[address] [facility] UNITED HEALTHCARE MEDICAREUNITED HEALTHC ARE [id number] [address] xxxxxxxxx 2014 00:00:00 [facility] CONNECTED (MEDICARE-MEDICAID PLAN)xxxx [id number] 2019-PresentHMO [id number] 2019 00:00:00 Quinten Ho odist MEDICAID - [facility] dicaid Contracted xxxxxxxxx [facility] - MEDICARE MGD CAREUNITED MEDICARE HMOxxxxxxxxx xxxxxxxxx [facility] MEDICAIDMEDICAID OF [place]xxxxxxxxxMedicaid xxxxxxxxx [facility] OPTUM NON UNITED - MEDICAID MGD CAREOPTUM NON-[place] STARxxxxxxx xx xxxxxxxxx [facility] Problems Condition Name Condition Details Condition Category Status Onset Date Resolution Date Last Treatment Date Treating Clinician Comments Source Acute renal failure (ARF) Acute renal failure (ARF) Disease Ac tive 2019-08-28 00:00:[address] BACK PAIN BACK PAIN Active 08/23/2018 [facility] Active 2018-08-23 00:00:00 2018-08-23 23:03:00 Steve Michele SYDNEE, NAUSEA AND VOMITING SYDNEE, NAUSEA AND VOMITING Active 08/23/2018 [facility] Diagnosis Active 2018-08-23 00:00:00 2018-08-27 15:14:00 Steve Michele Pre-transplant evaluation for chronic kidney disease P re-transplant evaluation for chronic kidney disease Disease Active 2018-02-19 00:00:00 [facility] Controlled type 2 diabetes mellitus with stage 5 chronic kidney disease not on chronic dialysis, without long-term current use of insulin Controlled type 2 diabetes mellitus with stage 5 chronic kidney disease not on chronic dialysis, without long-term current use of insulin Disease Active 2018-02-19 00:00: [facility] Ess[facility] Essential hypertension Disease Active 2018-02-19 00:00:00 [facility] CKD (chronic kidney disease) stage 5, GFR less than 15 ml/min CKD (chronic kidney disease) stage 5, GFR less than 15 ml/min Disease Active 2018-02-19 00:00:00 [facility] Secondary hyperparathyroidism of renal origin Secondar y hyperparathyroidism of renal origin Disease Active 2018-02-19 00:00:00 [facility] Hyperlipidemia, unspecified hyperlipidemia type Hyperl ipidemia, unspecified hyperlipidemia type Disease Active 2018-02-19 00:00:00 [facility] SWOLLEN LEGS SWOL DANNY LEGS Active 07/25/2017 [facility] Diagnosis Active 2017-07-25 00:00:00 2017-07-25 17:31:00 Steve Michele WEAKNESS WEAK NESS Active 10/19/2016 [facility] Diagnosis Active 2016-10-19 00:00:00 2016-10-19 15:05:00 Steve Michele LWR BACK PAIN LWR BACK PAIN Active 02/18/2016 [facility] Diagnosis Active 2016-02-18 00:00:00 2016-02-18 13:55:00 Steve Michele BMI 36.0-36.9,adult BMI 36.0-36.9,adult Disease Active 2014-12-30 00:00 :00 [facility] Dietary surveillance and counseling Dietary surveillance and cou nseling Disease Active 2014-12-30 00:00:00 [facility] SEBACEOUS CYST ON RIGHT SIDE OF FACE SEBACEOUS CYST ON RIGHT SIDE OF FACE Active 08/22/2012 [facility] Diagnosis Active 2012-08-22 00:00:00 2012-09-07 05:40:00 Steve Michele ABSCESS ABSC ESS Active 08/04/2012 [facility] Active 2012-08-04 12:00:00 2012-08-05 19:55:00 Steve Michele Back pain with radiation Back pain with radiation Disease Acti ve 2012-04-09 00:00:00 [facility] Knee pain Knee pain Disease Active 2012-04-09 00:00:00 [facility] Neck pain Neck pain Disease Active 2009-07-15 00:00:00 [facility] Arthralgia of multiple joints Arthralgia of multiple joints Disease Active 2008-09-03 00:00:00 [facility] ealth Diabetes mellitus type II, uncontrolled Diabetes mellitus ty pe II, uncontrolled Disease Active 2006-03-27 00:00:00 [facility] Abdominal pain Problem Active C 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 Problem Active [facility] Calciphylaxis Problem Active [facility] End-stage renal disease on peritoneal dialysis Problem Active [facility] Hypokalemia Problem Active [facility] Anemia Problem Active [facility] Sepsis Problem Active [facility] End-stage renal disease Problem Active [facility] Atrial fibrillation with rapid ventricular response Problem Active [facility] Hypertensive chronic kidney disease with stage 1 through stage 4 chronic kidney disease, or unspecified chronic kidney disease Hypertensive chronic kidney disease with stage 1 through stage 4 chronic kidney disease, or unspecified chronic kidney disease 11/01/2017 [facility] Problem 2017-11-01 14:25:16 Jamee Michele Type 2 diabetes mellitus with diabetic chronic kidney disease Type 2 diabetes mellitus with diabetic chronic kidney disease 11/01/2017 [facility] Problem 2017-11-01 14:25:16 Me lianne Michele 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 (current) use of oral hypoglycemic drugs 11/01/2017 [facility] Problem 2017-11-01 14:25:16 Steve Michele Arthritis (disorder) Arth ritis (disorder) Resolved Problem 08/27/2018 [facility], OPID [place] Problem Resolved 2018-08-27 21:46:03 Steve Michele Diabetes mellitus (disorder) D iabetes mellitus (disorder) Resolved Problem 08/27/2018 Manny CELSO [place] Problem Resolved 2018-08-27 21:46:03 Jamee Michele Hypercholesterolemia (disorder) Hypercholesterolemia (disorder) Resolved Problem 08/27/2018 [place]anny CELSO [place] Problem Resolved 2018-08-27 21:46:03 Jamee Michele Depressive disorder (disorder) Depressive disorder (disorder) Resolved Problem 08/27/2018 [facility] CELSO [place] Problem Resolved 2018-08-27 21:46:03 Jamee Michele Arthritis Arth ritis Resolved Problem 09/09/2012 [facility] Problem Resolved 2012-09-09 20:42:22 Steve Michele Diabetes mellitus Diab etes mellitus Resolved Problem 09/09/2012 [facility] Problem Resolved 2012-09-09 20:42:22 Steve Michele Hypertension Hype rtension Active Problem 09/09/2012 [facility] Problem Active 2012-09-09 20:42:22 Steve Michele SEBACEOUS CYST SEBA CEOUS CYST Active [facility] Diagnosis Active 2012-09-07 05:40:00 Oh lianne Michele ACUTE KIDNEY FAILURE, UNSPECIFIED ACUTE KIDNEY FAILURE, UNSPECIFIED Active [facility] Diagnosis Active 2018-08-27 15 :14:00 Steve Michele NAUSEA WITH VOMITING, UNSPECIFIED NAUSEA WITH VOMITING, UNSPECIFIED Active [facility] Diagnosis Active 2018-08-27 15 :14:00 Steve Michele Hypertension Hypertension Disease Active [facility] Hypertriglyceridemia Hypertriglyceridemia Disease Active [facility] Insomnia Insomnia Disease Active [facility] Atrophic vaginitis Atrophic vaginitis Disease Active [facility] Chronic kidney disease, unspecified Chronic kidney disease, unspecified 07/25/2017 11/01/2017 [facility] Problem 2017-07-25 05:00:00 2017-11-01 14:25:16 2017-11-01 14:25:16 Moses Michele Hypocalcemia Hypo calcemia 07/25/2017 11/01/2017 [facility] Problem 2017-07-25 05:00:00 2017-11-01 14:25:16 2017-10 14:25:16 Steve Michele Unspecified osteoarthritis, unspecified site Unspecified osteoarthritis, unspecified site 07/25/2017 11/01/2017 [facility] Problem 2017-07-25 05:00:00 2017-11-01 14:25:16 2017-11-01 14:25:16 Steve Michele Pain in right knee Pain in right knee 07/25/2017 11/01/2017 [facility] Problem 2017-07-25 05:00:00 2017-11-01 14:25:16 2017-11-01 14:25:16 Steve Michele Urinary tract infection, site not specified Urinary tract infection, site not specified 10/19/2016 10/22/2016 [facility] Problem 2016-10-19 05:00:00 2016-10-22 04:25:28 2016-10-22 04:25:28 [facility] Discharge Diagnosis: Benign hypertension with CKD (chronic kidney disease) stage IV Discharge Diagno sis: Benign hypertension with CKD (chronic kidney disease) stage IV 02/18/2016 02/21/2016 [facility] Problem 2016-02-18 05:00:00 2016-02-21 04:55:26 2016-02-21 04:55:26 [facility] Discharge Diagnosis: Bilateral flank pain Discharge Diagnosis: Bilateral flank pain 02/18/2016 02/21/2016 [facility] Problem 2016-02-18 05:00:00 2016-02-21 04:55:26 2016-02-21 04:55:26 [facility] Allergies, Adverse Reactions, Alerts Allergy Name Allergy Type Status Severity Reaction(s) Onset Date Inacti ve Date Treating Clinician Comments Source No Known Allergies DA Active U 2019-08-28 00:00:[address] [facility] No Known Allergies DA Active U 2018-09-15 00:00:[address] [facility] No Known Allergies DA Active U 2017-04-03 00:00:00 [facility] Family History Family Member Diagnosis Comments Start Date Stop Date Source Natural brother Diabetes [facility] Natural daughter Diabetes [facility] Natural father Alzheimer's disease [facility] Natural sister Unremarkable [facility] Natural son Diabetes [facility] Natural mother Diabetes [facility] Social History Social Habit Start Date Stop Date Quantity Comments Source History SDOH Alcohol Std Drinks [facility] History SDOH Alcohol Binge [facility] Sex Assigned At [facility] Alcohol intake 2019-12-03 00:00:00 2019-12-03 00:00:00 Current non-drinker of alcohol (finding) [facility] Tobacco use and exposure 2019-08-29 00:00:00 2019-08-29 00:00:00 Nehazackary robles used [facility] History SDOH Alcohol Frequency 2019-08-28 00:00:00 2019-08-28 00:00:0 0 1 [facility] Social History 2018-08-24 10:16:41 2018-08-24 10:16:41 [facility] History SDOH Food Worry 2018-01-23 00:00:00 2018-01-23 00:00:00 1 [facility] History SDOH Food Scarcity 2018-01-23 00:00:00 2018-01-23 00:00:00 1 [facility] Smoking Status Start Date Stop Date Source Never smoker [facility] Medications Ordered Medication Name Filled Medication Name Start Date Stop Da te Current Medication? Ordering Clinician Indication Dosage Frequency Signature (SIG) Comments Components Source Cephalexin Monohydrate (Keflex) 500 Mg CAPSULE Cephale jett Monohydrate (Keflex) 500 Mg CAPSULE 2020-01-31 04:36:00 Yes 500 Every 12 Hours [facility] metFORMIN (GLUCOPHAGE XR) 500 mg ER extended release tablet 2019-12-03 00:00:00 Yes Type 2 diabetes mellitus with hyperglycemia, without long-term current use of insulin 500mg Q.5D Take 1 tablet by mouth 2 times buffy y. [facility] naproxen (NAPROSYN) 500 mg tablet 2019-12-03 00:00:00 Yes Bilateral low back pain with sciatica, sciatica laterality unspecified, unspecified chronicity 500mg Take 1 tablet by mouth 2 times daily (with meal s). [facility] gabapentin (NEURONTIN) 100 mg capsule 2019-12-03 00:00:00 Yes Neuropathy 100mg Take 1 capsule by mouth 3 times daily. [facility] glipiZIDE (GLUCOTROL) 10 mg tablet 2019-10-03 00:00:00 Yes Type 2 diabetes mellitus with hyperglycemia, without long-term current use of insulin 10mg Q.5D Take 1 tablet by mouth 2 times daily (before meals). [facility] aspirin 81 mg chewable tablet 2019-08-30 00:00:00 2019-09-29 23: 59:00 No 81mg QD Chew 1 tablet (81 mg total) daily for 30 days. [facility] potassium chloride (K-DUR) 10 MEQ CR tablet 2019-08-29 15:34:30 Yes 20meq QD Take 20 mEq by mouth daily. Quinten Alonso calcitrioL (ROCALTROL) 0.5 MCG capsule 2019-08-29 15:34:30 Yes 1ug QD Take 1 mcg by mouth daily. Quinten Methmalena rios ferric citrate (AURYXIA ORAL) 2019-08-29 15:34:30 Yes 420mg Q.[id number] Take 420 mg by mouth 3 (three) [...] a day before meals for 30 days. [facility] amitriptyline (ELAVIL) 25 MG tablet 2019-08-29 00:00:0 0 2019-09-28 23:59:00 No 25mg QD Take 1 tablet (25 mg total) by mouth nig htly for 30 days. [facility] carvediloL (COREG) 6.25 MG tablet 2019-08-29 00:00:00 2019 23:59:00 No 6.25mg Q.5D Take 1 tablet (6 .25 mg total) by mouth 2 (two) times a day with meals for 30 days. [facility] furosemide (LASIX) 40 mg tablet 2019-07-19 00:00:00 Yes Localized edema 40mg Q.5D Take 1 tablet by mouth 2 times daily. [facility] carvediloL (COREG) 25 mg tablet 2019-07-19 00:00:00 Yes Essential hypertension with goal blood pressure less than 130/85 25mg Take 1 tablet by mouth 2 times daily (with meals). [facility] furosemide (LASIX) 40 mg tablet 2019-02-25 00:00:00 Yes Acute renal failure with acute tubular necrosis superimposed on stage 5 chronic kidney disease, not on chronic dialysis 40mg Q.5D Take 1 tablet by mouth 2 times daily. [facility] amitriptyline (ELAVIL) 25 mg tablet 2019-02-25 00:00:00 Yes Neuropathic pain syndrome (non-herpetic) 25mg Take 1 tabl et by mouth at bedtime nightly at bedtime (1 tablet = 25 mg). [facility] allopurinol (ZYLOPRIM) 100 mg tablet 2019-02-25 00:00:00 Yes Idiopathic gout, unspecified chronicity, unspecified site 100mg QD Take 1 tablet by mouth daily. [facility] atorvastatin (LIPITOR) 40 mg tablet 2019-02-25 00:00:00 Yes Mixed hyperlipidemia 40mg Take 1 tablet by mouth at bedtime nightly. [facility] walker Misc 2019-02-25 00:00:00 Yes Fall, subsequ ent encounter by Mis.(Non-Drug; Combo Route) route Walker with seat and wheels along with hand brakes. [facility] glipiZIDE (GLUCOTROL) 10 mg tablet 2019-02-25 00:00: 00:00:00 No Type 2 diabetes mellitus with hyperglyce mehdi, without long-term current use of insulin 10mg Q.5D Take 1 tablet by mouth 2 times daily (before me als). [facility] tropicamide (MYDRIACYL) 0.5 % ophthalmic solution 2019-02-25 00:00:00 2019-08-24 23:59:00 No Type 2 diabetes carlos itus with hyperglycemia, without long-term current use of insulin 1[drp] Instill 1 Drop in each eye once as needed for up to 1 dose (for poor retina scan image). [facility] glipiZIDE (GLUCOTROL) 10 mg tablet 2018-08-28 00:00:00 201 01-22-14 00:00:00 No Type 2 diabetes mellitus with hyperglyce mehdi, without long-term current use of insulin 10mg Q.5D Take 1 tablet by mouth 2 times daily (before me als). [facility] atorvastatin 40 mg oral tablet 2018-08-25 15:45:00 Yes 40 mg = 1 tab, PO, Bedtime, # 90 tab, 1 Refill(s) Steve Michele calcitriol 0.5 mcg oral capsule 2018-08-25 15:45:00 Yes 0.5 microgram = 1 cap, PO, Daily, # 30 cap, 0 Refill(s) Steve Michele carvedilol 2018-08-25 15:45:00 Yes 25 mg, PO , BID, 0 Refill(s) Steve Michele Vitamin D2 50,000 intl units oral capsule 2018-08-25 15:45:00 Yes 50,000 IntlUnit = 1 cap, PO, 0 Refill(s) Steve Michele baclofen 5 mg oral tablet 2018-08-25 15:45:00 Yes 10 mg = 2 tab, PO, TID, 0 Refill(s) Steve Michele Furosemide 40 MG Oral Tablet 2018-08-25 15:45:00 Yes 40 mg = 1 tab, PO, BID, 0 Refill(s) Steve Michele Hydroxyzine Hydrochloride 25 MG Oral Tablet 2018-08-25 15:45:00 No 25 mg = 1 tab, PO, Q8H, 0 Refill(s) [place] [facility] Hydralazine Hydrochloride 50 MG Oral Tablet 2018-08-25 15:45:00 Yes 100 mg = 2 tab, PO, TID, 0 Refill(s) Mem orial [facility] atorvastatin 2018-08-25 02:00:00 No Notes: (Same as: Lipitor) [facility] sennosides, ASSISTED 2018-08-25 02:00:00 No Notes: (Same as: Senokot) [facility] Hydralazine 2018-08-24 21:00:00 No Notes: (Same as: Apresoline) May interfere w/enteral feedings Take With Food. [facility] Robaxin 2018-08-24 16:00:00 No Notes: (Same as:Robaxin) [facility] metoprolol tartrate 2018-08-24 14:00:00 No Notes: (Same as: Lopressor) [facility] Amlodipine 2018-08-24 14:00:00 No Notes: (S elizabeth as: Norvasc) [facility] POLYETHYLENE GLYCOL 3350 2018-08-24 14:00:00 No Notes: Dissolve in 8 oz of water or juice. (Same as: Miralax) [facility] Docusate 2018-08-24 14:00:00 No Notes: (Same as: Colace) (Do Not Crush) [facility] heparin 2018-08-24 13:00:00 No Notes: porci ne heparin [facility] NIFEdipine 30 mg oral tablet, extended release 2018-08-24 07:23: 00 No Notes: (Same as: Adalat CC, Procardia XL ) Give on empty stomach. Take 1 hour before or 2 hours after meal; "Avoid grapefruit and grapefruit juice". Do not crush [facility] tizanidine 2018-08-24 06:36:00 No Notes: (S elizabeth As: Zanaflex) [facility] Hydralazine 2018-08-24 06:30:00 No Notes: (Same as: Apresoline) Push over 5 minutes [facility] Insulin Lispro 2018-08-24 06:07:00 No Notes: (Same as: Humalog ) Roll in palms of hands gently; Do not shake `vigorously. "Single Patient Use Only " WASTE: F/P - Black; E - Municipal Trash Bin Stable for 28 days at room temperature. Expires in days from Date [facility] Dextrose 50% Syringe 2018-08-24 06:07:00 No 12.5 gm, 25 mL, Route: IVP, Drug Form: INJ, Dosing Weight 79.091, kg, PRN, PRN Blood Glucose Results, Start date: 08/24/18 1:07:00 CDT, Duration: 30 day, Stop date: 09/23/18 1:06:00 CDT [facility] Glucagon 2018-08-24 06:07:00 No 1 mg, Route: IM, Drug form: PDR/INJ, PRN, Dosing Weight 79.091, kg, PRN Blood Glucose Results, Start date: 08/24/18 1:07:00 CDT, Duration: 30 day, Stop date: 09/23/18 1:06:00 CDT [facility] Lactated Ringers IV 1,000 mL 2018-08-24 06:06:00 No 1,000 mL, Rate: 125 ml/hr, Infuse over: 8 hr, Route: IV, Dosing Weight 79.091 kg, Total Volume: 1,000, Start date: 08/24/18 1:06:00 CDT, Duration: 30 day, Stop date: 09/23/18 1:05:00 CDT, 1.89, m2 [facility] Hydromorphone 2018-08-24 06:06:00 No Notes: (Same as: Dilaudid) [facility] Saline Flush 0.9% 2018-08-24 06:06:00 No Notes: (Same as: BD Posiflush) [facility] Acetaminophen 2018-08-24 06:06:00 No Notes: Do not exceed 4 gm/day. (Same as: Tylenol) [facility] Dextrose 50% Syringe 2018-08-24 06:06:00 No 25 mL, Route: IVP, Dosing Weight 79.091, kg, PRN, PRN Blood Glucose Results, Start date: 08/24/18 1:06:00 CDT, Duration: 30 day, Stop date: 09/23/18 1:05:00 CDT [facility] Bisacodyl 2018-08-24 06:06:00 No Notes: (Same As: Dulcolax, Bisco-Lax) [facility] Melatonin 2018-08-24 06:06:00 No Notes: (Sa me as: Melatonin) [facility] Ondansetron 2018-08-24 06:06:00 No Notes: (Same as: Zofran) MEDICATION WASTE Product Size: 4 mg Product Wasted: ___ mg Steve Michele Glucagon 2018-08-24 06:06:00 No 1 mg, Route: IM, PRN, Dosing Weight 79.091, kg, PRN Blood Glucose Results, Start date: 08/24/18 1:06:00 CDT, Duration: 30 day, Stop date: 09/23/18 1:05:00 CDT [facility] Saline Flush 0.9% 2018-08-24 02:56:00 No Notes: (Same as: BD Posiflush) [facility] furosemide (LASIX) 40 mg tablet 2018-07-20 00:00:00 00:00:00 No Acute renal failure with acute tubular necrosis superimposed on stage 5 chronic kidney disease, not on chronic dialysis 40mg Q.5D Take 1 tablet by mouth 2 times daily. [facility] furosemide (LASIX) 40 MG tablet 2018-03-28 09:10:13 Yes 20mg Q.5D Take 20 mg by mouth 2 (two) times daily . [facility] hydrALAZINE (APRESOLINE) 100 MG tablet 2018-03-28 09:10:13 Yes 50mg Q.[id number] Take 50 mg by mouth 3 (three) times daily . [facility] NIFEdipine (ADALAT CC) 30 MG 24 hr tablet 2018-03-28 09:10:13 Yes 30mg QD Take 30 mg by mouth daily. [facility] aspirin 81 MG EC tablet 2018-03-28 09:10:13 Yes 81mg QD Take 81 mg by mouth daily. [facility] metoprolol (LOPRESSOR) 50 MG tablet 2018-03-28 09:10:13 Yes 50mg Q.5D Take 50 mg by mouth 2 (two) times daily. [facility] ferric citrate (AURYXIA ORAL) 2018-03-28 09:10:13 Yes 210mg Q.5D Take 210 mg by mouth 2 (two) times daily. [facility] amitriptyline (ELAVIL) 25 MG tablet 2018-02-19 09:09:17 Yes 25mg QD Take 25 mg by mouth nightly. [facility] calcitriol (ROCALTROL) 0.25 MCG capsule 2018-02-19 09:09:16 Yes .25ug QD Take 0.25 mcg by mouth daily. [facility] glipiZIDE (GLUCOTROL) 10 MG tablet 2018-02-19 09:09:16 Yes 10mg Take 10 mg by mouth 2 (two) times daily before meals. [facility] allopurinol (ZYLOPRIM) 100 MG tablet 2018-02-19 09:09:16 Ye s 100mg QD Take 100 mg by mouth daily. [facility] atorvastatin (LIPITOR) 40 MG tablet 2018-02-19 09:09:16 Yes 40mg QD Take 40 mg by mouth daily. [facility] triamcinolone (KENALOG) 0.025 % topical cream 2018-01-23 00: 00:00 Yes Rash Apply to affected area 3 times daily. [facility] calcitriol (ROCALTROL) 0.25 mcg capsule 2018-01-23 00:00:00 Yes Hypovitaminosis D .25ug QD Take 1 capsule by mouth daily. [facility] hydrALAZINE (APRESOLINE) 100 mg tablet 2018-01-23 00:00:00 Yes Essential hypertension with goal blood pressure less than 130/85 100mg Take 1 tablet by mouth 3 times daily. [facility] furosemide (LASIX) 40 mg tablet 2018-01-23 00:00:00 00:00:00 No Localized edema 40mg Q.5D Take 1 tablet by mouth 2 times daily. [facility] carvedilol (COREG) 12.5 mg tablet 2018-01-23 00:00:00 2019 00:00:00 No Essential hypertension with goal blood pressure less than 130/85 12.5mg Take 1 tablet by mouth 2 times daily (with meals). [facility] amitriptyline (ELAVIL) 25 mg tablet 2018-01-23 00:00:0 0 2019-02-25 00:00:00 No Neuropathic pain syndrome (non-herpetic) 25mg Take 1 tablet by mouth at bedtime nightly at bedtime (1 tablet = 25 mg). [facility] allopurinol (ZYLOPRIM) 100 mg tablet 2018-01-23 00:00: 00 2019-02-25 00:00:00 No Idiopathic gout, unspecified chronicity, unspecified s ite 100mg QD Take 1 tablet by mouth daily. [facility] atorvastatin (LIPITOR) 40 mg tablet 2017-11-28 00:00:0 0 2019-02-25 00:00:00 No Mixed hyperlipidemia 40mg Take 1 tablet by mouth at b edtime nightly. [facility] ferrous sulfate (FEOSOL) 325 mg (65 mg iron) tablet 09-01 00:00:00 Yes Iron deficiency anemia, unspecified iron deficiency anemia type 325mg QD Take 1 tablet by mouth daily (with breakfast). [facility] naproxen (NAPROSYN) 500 mg tablet 2017-09-01 00:00:00 Yes Arthralgia, unspecified joint 500mg Take 1 tablet by mouth 2 times daily (with meals). [facility] NIFEdipine (PROCARDIA XL) 30 mg extended release tablet 2017-09-01 00:00:00 Yes Essential hypertension 30mg Q.5D Take 1 tablet by mouth 2 times daily NEW DOSING TWICE DAILY. [facility] tiZANidine (ZANAFLEX) 4 mg tablet 2017-09-01 00:00:00 Ye s Spasm of muscle 4mg Take 1 tablet by mouth nightly at bedtime as nee ded for Muscle Spasms. [facility] lactulose (CONSTULOSE) 10 gram/15 mL oral solution 2017-08 00:00:00 Yes Slow transit constipation 20g Take 30 mL by mouth 3 ti mes daily. [facility] tramadol hydrochloride 50 MG Oral Tablet 2017-07-26 04:02:00 No 50 mg = 1 tab, PO, Q8H, PRN Pain, X 5 day, # 24 tab, 0 Refill(s) [facility] Glipizide 2017-07-26 03:09:00 Yes 10 mg, PO, BID, 0 Refill(s) [facility] Hydralazine 2017-07-26 03:09:00 Yes 25 mg, P O, BID, 0 Refill(s) [facility] atorvastatin 2017-07-26 03:08:00 Yes 40 mg, PO, Bedtime, 0 Refill(s) [facility] Tramadol 2017-07-26 03:06:00 Yes 50 mg, PO, PRN, 0 Refill(s) Steve Michele metoprolol tartrate 50 mg oral tablet 2017-07-26 03:06:00 Y es 50 mg = 1 tab, PO, BID, 0 Refill(s) [facility] Donal lombardo tramadol hydrochloride 50 MG Oral Tablet 2017-07-26 02:25:00 No 50 mg, Route: PO, Drug form: TAB, ONCE, Dosing Weight 84.091, kg, Priority: STAT, Start date: 07/25/17 21:25:00 CDT, Stop date: 07/25/17 21:25:00 CDT [facility] amLODIPine (NORVASC) 10 mg tablet 2017-05-01 00:00:00 Yes Essential hypertension 10mg QD Take 1 tablet by mouth daily. [facility] metoprolol tartrate (LOPRESSOR) 50 mg tablet 2017-04-17 00:0 0:00 Yes Essential hypertension 50mg Q.5D Take 1 tablet by mouth 2 times buffy y. [facility] hydrALAZINE (APRESOLINE) 25 mg tablet 2017-04-17 00:00:00 Yes Essential hypertension 25mg Q.5D Take 1 tablet by mouth 2 times daily. [facility] ondansetron (ZOFRAN) 4 mg tablet 2017-04-17 00:00:00 Yes Nausea 4mg Take 1 tablet by mouth every 8 hours as needed for Nausea. [facility] naproxen (NAPROSYN) 500 mg tablet 2017-01-31 00:00:00 2019 00:00:00 No Bilateral low back pain with sciatica, s ciatica laterality unspecified, unspecified chronicity 500mg Take 1 tablet by mouth 2 times daily (with meals). [facility] traMADol (ULTRAM) 50 mg tablet 2017-01-19 00:00:00 Yes Arthralgia of both lower legs 50mg Take 1 tablet by mouth every 8 hours as needed for Pain. [facility] Cephalexin 500 MG Oral Capsule [Keflex] 2016-10-19 21:17:00 Yes 500 mg = 1 cap, PO, BID, X 10 day, # 20 cap, 0 Refill(s) [facility] Sodium Chloride 0.154 MEQ/ML Injectable Solution 2016-10-19 20:0 7:00 No 1,000 mL, 1000 ml/hr, Infuse Over: 1 hr, Route: IV, 1,000, Drug form: INJ, ONCE, Priority: STAT, Dosing Weight 91.818 kg, Start date: 10/19/16 15:07:00 CDT, Duration: 1 doses or times, Stop date: 10/19/16 15:07:00 CDT [facility] Pyridium 2016-10-19 20:06:00 No Notes: Give with meals. (Same as: Pyridium) [facility] Ceftriaxone 2016-10-19 20:06:00 No Notes: (Same As: Rocephin). Use with 100 mL NS and infuse over 30 min MEDICATION WASTE Product Size: 2000 mg Product Wasted: ___ mg [facility] Saline Flush 0.9% 2016-10-19 17:40:00 No Notes: (Same as: BD Posiflush) [facility] Glipizide-Metformin 5-500 mg per tablet 2016-09-23 00:00:00 Yes Type 2 diabetes mellitus with hyperglycemia, without long-term current use of insulin 2{tbl} Q.5D Take 2 tablets by mouth 2 times daily (before meals). [facility] lisinopril (ZESTRIL) 40 mg tablet 2016-09-23 00:00:00 Yes Essential hypertension with goal blood pressure less than 130/85 40mg QD Take 1 tablet by mouth daily. [facility] gabapentin (NEURONTIN) 600 mg tablet 2016-09-23 00:00:00 Yes Neuropathic pain syndrome (non-herpetic) 600mg Take 1 tablet by mouth 3 time s daily. [facility] NIFEdipine (PROCARDIA XL) 90 mg extended release tablet 2016-09-23 00:00:00 Yes Essential hypertension with goal blood pressure less t claudio 130/85 90mg QD Take 1 tablet by mouth daily. [facility] amLODIPine (NORVASC) 10 mg tablet 2016-08-31 00:00:00 Yes Essential hypertension 10mg QD Take 1 tablet by mouth daily. [facility] blood glucose (PRECISION XTRA TEST STRIPS) test strips 2016-03-21 00:00:00 Yes Type 2 diabetes mellitus wit h hyperglycemia, without long-term current use of insulin 1{each} 1 Each by MISCELLANEOUS route 2 times weekly. [facility] lancets 30 gauge Misc 2016-03-21 00:00:00 Yes Type 2 diabetes mellitus with hyperglycemia, without long-term current use of insulin 100{each} 100 Each by [facility].(Non-Drug; Combo Route) route 2 times weekly. [facility] pioglitazone (ACTOS) 30 mg tablet 2016-03-18 00:00:00 Yes Type 2 diabetes mellitus with hyperglycemia, without long-term current use of insulin 30mg QD Take 1 tablet by mouth daily. [facility] BLOOD GLUCOSE METER monitoring kit 2016-03-18 00:00:00 Yes Type 2 diabetes mellitus with hyperglycemia, without long-term current use of insulin CHECK BLOOD GLUCOSE TWICE WEEKLY. [facility] Docusate Sodium 100 MG Oral Capsule [Colace] 2016-02-18 19:36:00 Yes 100 mg = 1 cap, PO, BID, PRN Constipation, # 20 cap, 0 Refill(s) [facility] Acetaminophen 300 MG / Codeine Phosphate 30 MG Oral Tablet [Tylenol with Codeine #3] 2016-02-18 19:36:00 No 1 - 2 tab, PO, Q4H, PRN Pain, X 2 day, # 20 tab, 0 Refill(s) [facility] Sodium Chloride 0.154 MEQ/ML Injectable Solution 2016-02-18 18:3 8:00 No 1,000 mL, 2,000 ml/hr, Infus e Over: 30 minutes, Route: IV, ONCE, Priority: STAT, Dosing Weight 91.818 kg, Start date: 02/18/16 13:38:00 CDT, Duration: 1 doses or times, Stop date: 02/18/16 13:38:00 CDT [facility] Saline Flush 0.9% 2016-02-18 18:38:00 No Notes: (Same as: BD Posiflush) [facility] Morphine 2016-02-18 18:38:00 No 4 mg, Route: IVP, ONCE, Dosing Weight 91.818, kg, Priority: STAT, Start date: 02/18/16 13:38:00 CDT, Stop date: 02/18/16 13:38:00 CDT [facility] Ondansetron 2016-02-18 18:38:00 No 4 mg, Route: IVP, ONCE, Dosing Weight 91.818, kg, Priority: STAT, Start date: 02/18/16 13:38:00 CDT, Stop date: 02/18/16 13:38:00 CDT [facility] lactulose (CONSTULOSE) 10 gram/15 mL oral solution 2015-08 00:00:00 Yes Slow transit constipation 20g Take 30 mL by mouth 3 ti mes daily. [facility] ergocalciferol (VITAMIN D2) 50,000 unit capsule 2015-02-24 0 0:00:00 Yes Vitamin D deficiency 43155G Take 1 capsule by mouth weekly. [facility] ferrous sulfate (FEOSOL) 325 mg (65 mg iron) tablet 2014-05 00:00:00 Yes Other iron deficiency anemia 325mg QD Jay e 1 tablet by mouth daily (with breakfast). [facility] glyBURIDE-metFORMIN (GLUCOVANCE) 5-500 mg per tablet 2 00:00:00 Yes DM type 2 (diabetes mellitus, type 2) 2{tbl} Take 2 tablets by mouth 2 times daily (with meals). [facility] ciprofloxacin (CIPRO) 500 mg tablet 2013-10-22 00:00:00 Yes UTI (Lower Urinary Tract Infection) 500mg Q.5D Take 1 tablet by mouth 2 times da ethel. [facility] Vicodin 5/500 oral tablet 2012-09-07 17:00:05 Yes Roger Zayas Freet 1 tab, PO, Q6H, 30 tab, Substitution Allowed, Maintenance [facility] naloxone 2012-09-07 15:30:00 No Pito Vijay Hemmad 0.04 mg, 0.1 mL, Route: IVP, Drug form: INJ, Q2MIN, Dosing Weight 83.182, kg, PRN Narcotic Reversal, Start date: 09/07/12 10:30:00, Duration: 8 doses or times, Stop date: 09/08/12 0:00:00 [facility] flumazenil 2012-09-07 15:30:00 No Pito Vijay Hemmad 0.2 mg, 2 mL, Route: IVP, Drug form: INJ, PRN, Dosing Weight 83.182, kg, PRN Benzodiazepine Reversal, Initial dose, Start date: 09/07/12 10:30:00, Duration: 30 day, Stop date: 10/07/12 10:29:00 [facility] ondansetron 2012-09-07 15:30:00 No Pito Vijay Hemmad 4 mg, 2 mL, Route: IVP, Drug form: INJ, ONCE, Dosing Weight 83.182, kg, PRN Nausea & Vomiting, Start date: 09/07/12 10:30:00 [facility] acetaminophen-hydrocodone 325 mg-10 mg/15 mL oral solution 2012-09-07 15:30:00 No Pito Vijay Hemmad 1 5 mL, Route: PO, Drug Form: SOLN, Dosing Weight 83.182, kg, Q6H, PRN Pain, Start date: 09/07/12 10:30:00, Duration: 30 day, Stop date: 10/07/12 10:29:00 [facility] labetalol 2012-09-07 15:30:00 No Pito Vijay Hemmad 5 mg, 1 mL, Route: IVP, Drug form: INJ, Q5Min, Dosing Weight 83.182, kg, PRN Elevated BP, Start date: 09/07/12 10:30:00, Duration: 5 doses or times, Stop date: 09/08/12 0:00:00 [facility] tetanus-diphtheria toxoids adult intramuscular suspension 2012-06-02 20:10:00 No Vanessa Claudiozik 0.5 ml, Route: IM, Dosing Weight 82.727, kg, ONCE, STAT, Start date: 06/02/12 14:10:00, Stop date: 06/02/12 14:10:00 [facility] tetracycline 500 mg capsule 2010-11-23 00:00:00 Yes Skin infection 500mg Q.5D Take 1 Cap by mouth 2 times daily. [facility] Omeprazole 40 mg capsule 2010-11-23 00:00:00 Yes GERD (gastroesophageal reflux disease) 40mg QD Take 1 Cap by mouth daily. [facility] ibuprofen (MOTRIN) 800 mg tablet 2010-11-23 00:00:00 Yes Joint pain 800mg Take 1 Tab by mouth every 8 hours as needed for Pain. [facility] LANCETS 2008-09-03 00:00:00 Yes Diabetes david litus type II, uncontrolled use as directed for home glucose monitoring [facility] PRECISION XTRA TEST STRIPS 2008-09-03 00:00:00 Yes Diabetes mellitus type II, uncontrolled use as directed for home glucose monitori ng [facility] Amitriptyline Hcl Amitriptyline Hcl Yes 25 [facility] y [facility] Atorvastatin Calcium Atorvastatin Calcium Yes 40 Bedtime [facility] Calcitriol Calcitriol Yes .5 Daily [facility] Furosemide Furosemide Yes 40 Daily [facility] Glipizide Glipizide Yes 10 Daily [facility] Hydralazine Hcl Hydralazine Hcl Yes 50 Daily [facility] Metformin Hcl Metformin Hcl Yes 500 Twice A Day [facility] Potassium Chloride Potassium Chloride Yes 20 Da ethel [facility] Immunizations Ordered Immunization Name Filled Immunization Name Date Status Comments Source Hepatitis B Pedi/Adol 2017-12-26 00:00:00 Completed [facility] Herpes Zoster Vaccine In Clinic 2017-11-28 00:00:00 [facility] Hepatitis B Pedi/Adol 2017-11-28 00:00:00 [facility] PCV 13 (Pnuemococcal Conjugated 13 Valent) 2017-01-31 00:0 0:00 [facility] Tdap Tetanus, diphtheria, acellular pertussis Vaccine 2014-12-30 00:00:00 [facility] Influenza Vaccine 2006-03-27 00:00:00 [facility] PPV 23 Pneumococcal Polysaccaride 2005-05-25 00:00:00 Comp [facility] PPV 23 Pneumococcal Polysaccaride 2001-09-05 00:00:00 [facility] Vital Signs Vital Name Observation Time Observation Value Comments Source Weight 2020-02-07 14:28:00 185 [lb_av] [facility] BMI (Body Mass Index) 2020-02-07 14:28:00 23.1 kg/m2 [facility] Body Temperature 2020-02-06 19:20:00 97.5 [degF] [facility] Body Temperature 2020-02-06 17:33:00 98.0 [degF] [facility] BMI (Body Mass Index) 2020-02-02 05:00:00 23.1 kg/m2 [facility] Weight 2020-02-01 12:06:00 185 [lb_av] [facility] Body Temperature 2020-01-31 09:00:00 98.6 [degF] [facility] BMI (Body Mass Index) 2020-01-27 17:12:00 33.2 kg/m2 [facility] Weight 2020-01-27 11:11:00 170 [lb_av] [facility] Systolic blood pressure 2019-08-29 10:34:45 109 mm[Hg] [facility] Diastolic blood pressure 2019-08-29 10:34:45 53 mm[Hg] [facility] Heart rate 2019-08-29 10:34:45 72 /min [facility] Body temperature 2019-08-29 10:34:45 36.33 [facility] Respiratory rate 2019-08-29 10:34:45 16 /min [facility] Oxygen saturation in Arterial blood by Pulse oximetry 08-28 10:34:45 100 /min [facility] Body height 2019-08-28 20:04:00 157.5 cm [facility] Body weight 2019-08-28 20:04:00 82.2 kg [facility] BMI 2019-08-28 20:04:00 33.15 kg/m2 [facility] Systolic blood pressure 2019-07-19 09:42:00 146 mm[Hg] manual [facility] Diastolic blood pressure 2019-07-19 09:42:00 60 mm[Hg] manual [facility] Heart rate 2019-07-19 09:36:00 89 /min [facility] Body temperature 2019-07-19 09:36:00 36.61 N[facility] Respiratory rate 2019-07-19 09:36:00 19 /min [facility] Body height 2019-07-19 09:36:00 157.9 cm [facility] Body weight 2019-07-19 09:36:00 78.79 kg [facility] BMI 2019-07-19 09:36:00 31.60 kg/m2 [facility] Temperature Oral (F) 2018-08-25 13:00:00 97.6 F [facility] Heart Rate 2018-08-25 13:00:00 [facility] Respitory Rate 2018-08-25 13:00:00 [facility] Systolic (mm Hg) 2018-08-25 13:00:00 [place] [facility] Diastolic (mm Hg) 2018-08-25 13:00:00 [facility] Systolic (mm Hg) 2018-08-25 09:00:00 [facility] Diastolic (mm Hg) 2018-08-25 09:00:00 [facility] Respitory Rate 2018-08-25 09:00:00 [facility] Heart Rate 2018-08-25 09:00:00 [facility] Temperature Oral (F) 2018-08-25 09:00:00 98.1 F [facility] Systolic (mm Hg) 2018-08-25 05:00:00 [place] [facility] Diastolic (mm Hg) 2018-08-25 05:00:00 [facility] Respitory Rate 2018-08-25 05:00:00 [facility] Heart Rate 2018-08-25 05:00:00 [facility] Temperature Oral (F) 2018-08-25 05:00:00 98.2 F [facility] Weight 2018-08-24 10:14:00 [facility] BMI Calculated 2018-08-24 10:14:00 [facility] Height 2018-08-24 10:14:00 157.48 cm [facility] Weight 2018-08-24 02:54:00 [facility] BMI Calculated 2018-08-24 02:54:00 [facility] Height 2018-08-24 02:54:00 157.48 cm [facility] Heart Rate 2017-07-26 05:04:00 [facility] Respitory Rate 2017-07-26 05:04:00 [facility] Systolic (mm Hg) 2017-07-26 05:04:00 [facility] Diastolic (mm Hg) 2017-07-26 05:04:00 [facility] Heart Rate 2017-07-26 00:29:00 [facility] Systolic (mm Hg) 2017-07-26 00:29:00 [place] [facility] Diastolic (mm Hg) 2017-07-26 00:29:00 [facility] Respitory Rate 2017-07-26 00:29:00 [facility] Weight 2017-07-25 20:25:00 [facility] BMI Calculated 2017-07-25 20:25:00 [facility] Height 2017-07-25 20:25:00 157.48 cm [facility] Respitory Rate 2017-07-25 20:25:00 [facility] Heart Rate 2017-07-25 20:25:00 [facility] Systolic (mm Hg) 2017-07-25 20:25:00 [place] [facility] Diastolic (mm Hg) 2017-07-25 20:25:00 [facility] Systolic (mm Hg) 2016-10-19 21:35:00 [place] [facility] Diastolic (mm Hg) 2016-10-19 21:35:00 [facility] Temperature Oral (F) 2016-10-19 21:35:00 98.1 F [facility] Respitory Rate 2016-10-19 21:35:00 [facility] Respitory Rate 2016-10-19 19:33:00 [facility] Systolic (mm Hg) 2016-10-19 19:33:00 [place] [facility] Diastolic (mm Hg) 2016-10-19 19:33:00 [facility] Systolic (mm Hg) 2016-10-19 18:35:00 [place] [facility] Diastolic (mm Hg) 2016-10-19 18:35:00 [facility] Respitory Rate 2016-10-19 18:35:00 [facility] BMI Calculated 2016-10-19 17:37:00 [facility] Height 2016-10-19 17:37:00 157.48 cm [facility] Temperature Oral (F) 2016-10-19 17:37:00 98.9 F [facility] Heart Rate 2016-10-19 17:37:00 [facility] Weight 2016-10-19 17:37:00 [facility] Respitory Rate 2016-02-18 20:01:00 [facility] Heart Rate 2016-02-18 20:01:00 [facility] Systolic (mm Hg) 2016-02-18 20:01:00 [place] [facility] Diastolic (mm Hg) 2016-02-18 20:01:00 [facility] Temperature Oral (F) 2016-02-18 20:01:00 98.2 F [facility] Height 2016-02-18 18:27:00 157.48 cm [facility] Weight 2016-02-18 18:27:00 [facility] Respitory Rate 2016-02-18 18:27:00 [facility] Temperature Oral (F) 2016-02-18 18:27:00 98.4 F [facility] BMI Calculated 2016-02-18 18:27:00 [facility] Systolic (mm Hg) 2016-02-18 18:27:00 [place] [facility] Diastolic (mm Hg) 2016-02-18 18:27:00 [facility] Heart Rate 2016-02-18 18:27:00 [facility] Respitory Rate 2012-09-07 16:20:00 [facility] Systolic (mm Hg) 2012-09-07 16:20:00 [place] [facility] Diastolic (mm Hg) 2012-09-07 16:20:00 [facility] Diastolic (mm Hg) 2012-09-07 16:15:00 [facility] Systolic (mm Hg) 2012-09-07 16:15:00 [place] [facility] Respitory Rate 2012-09-07 16:15:00 [facility] Systolic (mm Hg) 2012-09-07 16:00:00 [place] [facility] Diastolic (mm Hg) 2012-09-07 16:00:00 [facility] Respitory Rate 2012-09-07 16:00:00 [facility] Heart Rate 2012-09-07 11:02:00 [facility] Weight 2012-09-07 11:01:00 [facility] Height 2012-09-07 11:01:00 160.02 cm [facility] Weight 2012-08-05 22:36:00 [facility] Height 2012-08-05 22:36:00 160.02 cm [facility] Procedures Procedure Date / Time Performed Performing Clinician [facility] e CT of abdomen and pelvis without contrast 2020-02-01 00:00:00 [facility] Complete non-obstetrical ultrasound of pelvis 2020-01-30 00:00:0 [address] [facility] [address] of abdomen and pelvis without contrast 2020-01-27 00:00:00 [facility] POC GLUCOSE 2019-08-29 11:04:00 Zoey Jc POC GLUCOSE 2019-08-29 06:21:00 Rigo Leung odist HC COMPLETE BLD COUNT W/AUTO DIFF 2019-08-29 05:56:00 [facility] BASIC METABOLIC PANEL 2019-08-29 05:56:00 dio Melissa ferguson [facility] ESTIMATED GFR 2019-08-29 05:56:00 Melissa Sellers odaddison TROPONIN 2019-08-29 02:03:00 ChenmodeMelissa odaddison HEPATITIS B SURFACE ANTIGEN 2019-08-28 23:00:00 Jose Antonio Nelson HEPATITIS B SURFACE AB, QUANTITATIVE 2019-08-28 23:00:00 Jose Antonio Nelson POC GLUCOSE 2019-08-28 21:06:00 Rigo Leung Quinten white CT HEAD WO CONTRAST 2019-08-28 20:51:52 dio Melissademetri Alonso B NATRIURETIC PEPTIDE 2019-08-28 20:34:00 Melissa S[facility] HC COMPLETE BLD COUNT W/AUTO DIFF 2019-08-28 20:34:00 Jan Sellers [facility] COMPREHENSIVE METABOLIC PANEL 2019-08-28 20:34:00 Melissa Sellers Quinten Robertist LIPID PANEL 2019-08-28 20:34:00 Melissa Sellers odaddison PROTHROMBIN TIME WITH INR 2019-08-28 20:34:00 dioMissydemetri pascal [facility] TROPONIN 2019-08-28 20:34:00 dioMelissa odist ESTIMATED GFR 2019-08-28 20:34:00 Melissa Sellers odist ECG 12-LEAD 2019-08-28 20:20:32 Melissa Sellers [place] Vic odist CBC (WITHOUT DIFFERENTIAL) 2019-07-22 13:11:00 El Jung [facility] LIPID PROFILE 2019-07-22 13:11:00 Moises Jung [facility] LIVER PROFILE 2019-07-22 13:11:00 Moises Jung [facility] UREA NITROGEN/CREATININE 2019-07-22 13:11:00 Moises Jung [facility] ELECTROLYTES 2019-07-22 13:11:00 Moises Jung [facility] GLUCOSE, FASTING 2019-07-22 13:11:00 Moises Jung [facility] HEMOGLOBIN A1C 2019-07-22 13:11:00 Moises Jung [facility] URINALYSIS 2019-07-22 13:11:00 Moises Jung [facility] URINALYSIS MICROSCOPIC-REFLEX 2019-07-22 13:11:00 Colten Jung [facility] OPHTHALMOLOGY RETINAL SCAN 2019-02-25 11:09[facility]06 [facility] HEMOGLOBIN A1C 2019-02-25 10:43:00 Moises Jung [facility] DIABETIC FOOT EXAM 2019-02-25 08:20:[address] [facility] Anesthesia for vaginal hysterectomy [facility] Anesthesia for vaginal hysterectomy [facility] Plan of Care Planned Activity Planned Date Details Comments Source Future Scheduled Test 2020-07-21 00:00:00 Hemoglobin A1c juancarlos surement (procedure) [code = 23585726] [facility] Scheduled Test 2020-02-26 00:00:00 DM Foot Exam (Year ly) [code = DM Foot Exam (Yearly)] [facility] Scheduled Test 2020-02-26 00:00:00 DM Retinal Exam (Y early) [code = DM Retinal Exam (Yearly)] [facility] Scheduled Test 2020-02-13 00:00:00 IMM Influenza Seas onal Feb to July (>/= 19 yrs) [code = IMM Influenza Seasonal Feb to July (>/= 19 yrs)] [facility] Scheduled Test 2020-01-14 00:00:00 INFLUENZA VACCINE (#1) [code = INFLUENZA VACCINE (#1)] [facility] Scheduled Test 2019-12-14 00:00:00 INFLUENZA VACCINE [code = INFLUENZA VACCINE] [facility] Scheduled Test 2019-08-18 00:00:00 Screening for shayla gnant neoplasm of colon (procedure) [code = 534723707] [facility] Scheduled Test 2019-07-24 00:00:00 Breast Cancer Scrn (Yearly) [code = Breast Cancer Scrn (Yearly)] [facility] Scheduled Test 2019-05-16 00:00:00 MEDICARE ANNUAL WE LLNESS (YEAR 2 or FIRST YEAR if no IPPE) [code = MEDICARE ANNUAL WELLNESS (YEAR 2 or FIRST YEAR if no IPPE)] [facility] Future Scheduled Test 2019 00:00:00 Screening for shayla gnant neoplasm of colon (procedure) [code = 994123422] [facility] Future Scheduled Test 2018-11-07 00:00:00 Hemoglobin A1c juancarlos surement (procedure) [code = 74090983] [facility] 2018-10-20 00:00:00 PNEUMOCOCCAL 65+ H IGH/HIGHEST RISK (2 of 2 - PPSV23) [code = PNEUMOCOCCAL 65+ HIGH/HIGHEST RISK (2 of 2 - PPSV23)] [facility] Future Scheduled Test 2016 00:00:00 65+ PNEUMOCOCCAL V ACCINE (2 of 2 - PPSV23) [code = 65+ PNEUMOCOCCAL VACCINE (2 of 2 - PPSV23)] [facility] Scheduled Test 2001 00:00:00 BREAST CANCER SCRE ENING [code = BREAST CANCER SCREENING] [facility] Scheduled Test 2001 00:00:00 COLONOSCOPY SCREEN ING [code = COLONOSCOPY SCREENING] [facility] Scheduled Test 2001 00:00:00 SHINGLES VACCINES (#1) [code = SHINGLES VACCINES (#1)] [facility] Scheduled Test 1961 00:00:00 DIABETIC FOOT EXAM [code = DIABETIC FOOT EXAM] [facility] Scheduled Test 1961 00:00:00 URINE MICROALBUMIN [code = URINE MICROALBUMIN] [facility] Scheduled Test 1961 00:00:00 DIABETIC EYE EXAM [code = DIABETIC EYE EXAM] [facility] Future Scheduled Test 1961 00:00:00 Diabetic foot exam ination (regime/therapy) [code = 349721864] [facility] Future Scheduled Test 1961 00:00:00 Urine screening fo r protein (procedure) [code = 994449015] [facility] Future Scheduled Test 1951 00:00:00 DIABETIC RETINAL E YE EXAM [code = DIABETIC RETINAL EYE EXAM] [facility] Scheduled Test 1950 00:00:00 Screening for shayla nunes neoplasm of breast (procedure) [code = 207504182] [facility] Encounters Start Date/Time End Date/Time Encounter Type [facility] ID Source 2020-02-07 14:25:00 2020-02-07 14:25:00 Registered Emergency Room [facility]'s Patients [facility] [id number] [facility] 2020-02-01 13:41:00 2020-02-06 19:29:00 Discharged Inpatient 1 [facility] [id number] [facility] Patients [facility] 2020-01-27 11:17:00 2020-01-31 11:05:00 Discharged Inpatient 1 [facility] [id number] [facility] 2019-08-28 00:00:00 2019-08-29 00:00:00 Outpatient Moses JC [facility] [id number] [facility] 2018-08-23 21:28:00 2018-08-25 12:07:00 Outpatient Bruce Huff [facility] [id number] 2018-08-24 00:50:00 2018-08-24 00:50:00 Outpatient E [facility] 2018-07-23 14:40:27 2018-07-23 14:40:27 Outpatient [facility] [id number] [facility] 2018-07-20 14:06:38 2018-07-20 14:06:38 Outpatient [facility] [id number] [facility] 2018-07-20 12:56:13 2018-07-20 12:56:13 Outpatient [facility] [id number] [facility] 2018-03-19 00:00:00 2018-03-19 00:00:00 Outpatient [facility] [id number] [facility] 2018-03-19 00:00:00 2018-03-19 00:00:00 Outpatient [facility] [id number] [facility] 2018-03-14 00:00:00 2018-03-14 00:00:00 Outpatient [facility] [id number] [facility] 2018-03-04 00:00:00 2018-03-04 00:00:00 Outpatient [facility] [id number] [facility] 2018-02-07 00:00:00 2018-02-07 00:00:00 Outpatient [facility] [id number] [facility] 2018-02-07 00:00:00 2018-02-07 00:00:00 Outpatient [facility] [id number] [facility] 2018-02-05 00:00:00 2018-02-05 00:00:00 Outpatient [facility] [id number] [facility] 2018-01-29 07:53:08 2018-01-29 07:53:08 Outpatient [facility] [id number] [facility] 2018-01-29 00:00:00 2018-01-29 00:00:00 Outpatient [facility] [id number] [facility] 2018-01-24 00:00:00 2018-01-24 00:00:00 Outpatient [facility] [id number] [facility] 2018-01-24 00:00:00 2018-01-24 00:00:00 Outpatient [facility] [id number] [facility] 2018-01-23 09:47:01 2018-01-23 09:47:01 Outpatient [facility] [id number] [facility] 2018-01-16 00:00:00 2018-01-16 00:00:00 Outpatient [facility] [id number] [facility] 2018-01-02 00:00:00 2018-01-02 00:00:00 Outpatient [facility] [id number] [facility] 2018-01-01 09:32:06 2018-01-01 09:32:06 Outpatient [facility] [id number] [facility] 2017-12-28 00:00:00 2017-12-28 00:00:00 Outpatient [facility] [id number] [facility] 2017-12-26 09:01:27 2017-12-26 09:01:27 Outpatient [facility] [id number] [facility] 2017-11-30 00:00:00 2017-11-30 00:00:00 Outpatient [facility] [id number] [facility] 2017-11-30 00:00:00 2017-11-30 00:00:00 Outpatient [facility] [id number] [facility] 2017-11-28 08:25:32 2017-11-28 08:25:32 Outpatient [facility] [id number] [facility] 2017-10-31 07:32:00 2017-10-31 23:59:00 Outpatient Jose Antonio Nelson OIB OIB [id number] 2017-09-05 08:42:29 2017-09-05 08:42:29 Outpatient [facility] [id number] [facility] 2017-09-05 08:19:56 2017-09-05 08:19:56 Outpatient [facility] [id number] [facility] 2017-09-01 12:46:59 2017-09-01 12:46:59 Outpatient [facility] [id number] [facility] 2017-08-03 09:58:11 2017-08-03 09:58:11 Outpatient [facility] [id number] [facility] 2017-08-02 11:44:52 2017-08-02 11:44:52 Outpatient [facility] [id number] [facility] 2017-07-25 15:07:00 2017-07-26 00:06:00 Outpatient Mark Redding [facility] [id number] 2017-03-02 00:00:00 2017-03-02 00:00:00 Outpatient [facility] [id number] [facility] 2017-02-16 00:00:00 2017-02-16 00:00:00 Outpatient [facility] [id number] [facility] 2017-01-31 14:18:37 2017-01-31 14:18:37 Outpatient [facility] [id number] [facility] 2016-10-19 12:24:00 2016-10-19 16:38:00 [id number] 2016-02-18 13:19:00 2016-02-18 15:05:00 [facility] [id number] Results Test Description Test Time Test Comments Results Result Comments Source Capillary blood glucose measurement by glucometer (mas s/volume) 2020-02-06 16:36:00 Test Item Bedside Glucose (test code = 03224-0) 142 70-120 M[facility] ID[id number] (mass/volume)2020-02-06 12:17:00* Test Item Value Reference Range Interpretation Comments Bedside Glucose (test code = 96065-1) 97 70-120 Meter ID: [id number] Methodist Bay[facility] HospitalBlood leukocytes automated count (number/volume)2020-02-06 06:08:00* Test Item Value Reference Range Interpretation Comments White Blood Count (test code = 6690-2) 13.27 4.8-10.8 [facility]Bl[facility] erythrocytes automated count (number/volume)2020-02-06 06:08:00* Test Item Value Reference Range Interpretation Comments Red Blood Count (test code = 789-8) 3.26 3.6-5.1 [facility] HospitalBlood hemoglobin measurement (moles/volume)2020-02-06 06:08:00* Test Item Value Reference Range Interpretation Comments Hemoglobin (test code = 18470-7) 8.8 12.0-16.0 [facility] HospitalAutomated blood hematocrit (volume fraction)2020-02-06 06:08:00* Test Item Value Reference Range Interpretation Comments Hematocrit (test code = 4544-3) 27.1 34.2-44.1 [facility] HospitalAutomated erythrocyte mean corpuscular wyivbx1926-00-68 06:08:00* Test Item Value Reference Range Interpretation Comments Mean Corpuscular Volume (test code = 787-2) 83.1 81-99 [facility] HospitalAutomated erythrocyte mean corpuscular hemoglobin (mass per erythrocyte)2020-02-06 06:08:00* Test Item Value Reference Range Interpretation Comments Mean Corpuscular Hemoglobin (test code = 785-6) 27.0 28-32 [facility] HospitalAutomated erythrocyte mean corpuscular hemoglobin concentration measurement (mass/volume)2020-02-06 06:08:00* Test Item Value Reference Range Interpretation Comments Mean Corpuscular Hemoglobin Concent (test code = 786-4) 32.5 31-35 [facility] HospitalRDW CjiIc-Xqq4107-13-24 06:08:00* Test Item Value Reference Range Interpretation Comments Red Cell Distribution Width (test code = 95240-9) 17.3 11.7 -14.4 [facility] HospitalAutomated blood platelet count (count/volume)2020-02-06 06:08:00* Test Item Value Reference Range Interpretation Comments Platelet Count (test code = 777-3) 283 140-360 [facility] HospitalAutomated blood segmented neutrophil count as percentage of total zrwupfubow8999-91-59 06:08:00* Test Item Value Reference Range Interpretation Comments Neutrophils (%) (Auto) (test code = 12538-5) 75.3 38.7-80.0 [facility] HospitalAutomated blood lymphocyte count as percentage ot total aeurvgqqee2765-95-74 06:08:00* Test Item Value Reference Range Interpretation Comments Lymphocytes (%) (Auto) (test code = 736-9) 13.8 18.0-39.1 [facility] HospitalAutomated blood monocyte count as percentage of total nihzbxbjud2304-82-53 06:08:00* Test Item Value Reference Range Interpretation Comments Monocytes (%) (Auto) (test code = 5905-5) 7.8 4.4-11.3 [facility] HospitalAutformerly [facility] blood eosinophil count as percentage of total vctrwdmidj0479-14-83 06:08:00* Test Item Value Reference Range Interpretation Comments Eosinophils (%) (Auto) (test code = 713-8) 2.1 0.0-6.0 [facility] HospitalAutomated blood basophil count as percentage of total mvlicgaqac5384-94-86 06:08:00* Test Item Value Reference Range Interpretation Comments Basophils (%) (Auto) (test code = 706-2) 0.5 0.0-1.0 [facility] HospitalFluoroscopic procedure less than one hour mttlqjgs0690-56-20 06:08:00* Test Item Value Reference Range Interpretation Comments IM GRANULOCYTES % (test code = IM GRANULOCYTES %) 0.5 0.0- 1.0 [facility] HospitalAutomated blood neutrophil count 2020-02-06 06:08:00* Test Item Value Reference Range Interpretation Comments Neutrophils # (Auto) (test code = 751-8) 10.0 2.1-6.9 [facility] HospitalBlood lymphocytes count (number/volume) 2020-02-06 06:08:00* Test Item Value Reference Range Interpretation Comments Lymphocytes # (Auto) (test code = 36010-4) 1.8 1.0-3.2 [facility] HospitalBlood monocytes automated count (number/volume)2020-02-06 06:08:00* Test Item Value Reference Range Interpretation Comments Monocytes # (Auto) (test code = 742-7) 1.0 0.2-0.8 [facility] HospitalAutomated blood eosinophil count 2020-02-06 06:08:00* Test Item Value Reference Range Interpretation Comments Eosinophils # (Auto) (test code = 711-2) 0.3 0.0-0.4 [facility] HospitalAutomated blood basophil count (count/volume)2020-02-06 06:08:00* Test Item Value Reference Range Interpretation Comments Basophils # (Auto) (test code = 704-7) 0.1 0.0-0.1 [facility] HospitalFluoroscopic procedure less than one hour snurcagu1959-00-51 06:08:00* Test Item Value Reference Range Interpretation Comments Absolute Immature Granulocyte (auto (dae t code = Absolute Immature Granulocyte (auto) 0.07 0-0.1 [facility] or plasma sodium measurement (moles/volume)2020-02-06 06:08:00* Test Item Value Reference Range Interpretation Comments Sodium Level (test code = 2951-2) 145 136-145 [facility]sterum or plasma potassium measurement (moles/volume)2020-02-06 06:08:00* Test Item Value Reference Range Interpretation Comments Potassium Level (test code = 2823-3) 3.7 3.5-5.1 [facility]sterum or plasma chloride measurement (moles/volume)2020-02-06 06:08:00* Test Item Value Reference Range Interpretation Comments Chloride Level (test code = 2075-0) 97 98-107 [facility]sterum or plasma carbon dioxide, total measurement (moles/volume)2020-02-06 06:08:00* Test Item Value Reference Range Interpretation Comments Carbon Dioxide Level (test code = 2028-9) 18 22-29 [facility]sterum or plasma anion adh7720-77-12 06:08:00* Test Item Value Reference Range Interpretation Comments Anion Gap (test code = 97503-3) 33.7 8-16 [facility]um or plasma urea nitrogen measurement (mass/volume)2020-02-06 06:08:00* Test Item Value Reference Range Interpretation Comments Blood Urea Nitrogen (test code = 3094-0) 50 7-26 [facility] or plasma creatinine measurement (mass/volume)2020-02-06 06:08:00* Test Item Value Reference Range Interpretation Comments Creatinine (test code = 2160-0) 8.07 0.57-1.11 [facility] or plasma urea nitrogen/creatinine mass yoebk5228-44-83 06:08:00* Test Item Value Reference Range Interpretation Comments BUN/Creatinine Ratio (test code = 3097-3) 6 6-25 [facility] HospitalEstimated glomerular filtration rate (GFR) iafzhqrkbsusa7588-03-22 06:08:00* Test Item Value Reference Range Interpretation Comments Estimat Glomerular Filtration Rate (test code = 257961792) 5 >60 Ranges were taken from the National Kidney Disease Education Program and the [facility] Kidney Foundation literature.Reference ranges:60 or greater: Seezmh12-59 ( for 3 consecutive months): Chronic kidney disease 15 or less: Kidney failureHouston Methodist Baytown HospitalGlucose yrthrdlxubt9676-01-56 06:08:00* Test Item Value Reference Range Interpretation Comments Glucose Level (test code = PKX6727) 112 74-118 [facility]sterum or plasma calcium measurement (mass/volume)2020-02-06 06:08:00* Test Item Value Reference Range Interpretation Comments Calcium Level (test code = 76906-4) 7.6 8.4-10.2 [facility] HospitalPhosphorus iarpuuwsfcq8544-44-42 06:08:00 * Test Item Value Reference Range Interpretation Comments Phosphorus Level (test code = DQR9293) 5.6 2.3-4.7 [facility]um or plasma magnesium measurement (mass/volume)2020-02-06 06:08:00* Test Item Value Reference Range Interpretation Comments Magnesium Level (test code = 29324-7) 1.5 1.3-2.1 [facility] HospitalBlnorth memorial health hospital leukocytes automated count (number/volume)2020-02-06 06:08:00* Test Item Value Reference Range Interpretation Comments White Blood Count (test code = 6690-2) 13.27 4.8-10.8 [facility] HospitalBlnorth memorial health hospital erythrocytes automated count (number/volume)2020-02-06 06:08:00* Test Item Value Reference Range Interpretation Comments Red Blood Count (test code = 789-8) 3.26 3.6-5.1 [facility] HospitalBlnorth memorial health hospital hemoglobin measurement (moles/volume)2020-02-06 06:08:00* Test Item Value Reference Range Interpretation Comments Hemoglobin (test code = 73044-7) 8.8 12.0-16.0 [facility] HospitalAutomated blood hematocrit (volume fraction)2020-02-06 06:08:00* Test Item Value Reference Range Interpretation Comments Hematocrit (test code = 4544-3) 27.1 34.2-44.1 [facility] HospitalAutomated erythrocyte mean corpuscular yqfsan3747-42-15 06:08:00* Test Item Value Reference Range Interpretation Comments Mean Corpuscular Volume (test code = 787-2) 83.1 81-99 [facility] HospitalAutomated erythrocyte mean corpuscular hemoglobin (mass per erythrocyte)2020-02-06 06:08:00* Test Item Value Reference Range Interpretation Comments Mean Corpuscular Hemoglobin (test code = 785-6) 27.0 28-32 [facility] HospitalAutomated erythrocyte mean corpuscular hemoglobin concentration measurement (mass/volume)2020-02-06 06:08:00* Test Item Value Reference Range Interpretation Comments Mean Corpuscular Hemoglobin Concent (test code = 786-4) 32.5 31-35 [facility] HospitalRDW TceMw-Qjv0649-97-24 06:08:00* Test Item Value Reference Range Interpretation Comments Red Cell Distribution Width (test code = 10729-7) 17.3 11.7 -14.4 [facility] HospitalAutomated blood platelet count (count/volume)2020-02-06 06:08:00* Test Item Value Reference Range Interpretation Comments Platelet Count (test code = 777-3) 283 140-360 [facility] HospitalAutomated blood segmented neutrophil count as percentage of total kiinpwjgdp8656-50-13 06:08:00* Test Item Value Reference Range Interpretation Comments Neutrophils (%) (Auto) (test code = 26754-5) 75.3 38.7-80.0 [facility] HospitalAutomated blood lymphocyte count as percentage ot total ftgatryrou1242-37-97 06:08:00* Test Item Value Reference Range Interpretation Comments Lymphocytes (%) (Auto) (test code = 736-9) 13.8 18.0-39.1 [facility] HospitalAutomated blood monocyte count as percentage of total rqkffsqowx4471-16-56 06:08:00* Test Item Value Reference Range Interpretation Comments Monocytes (%) (Auto) (test code = 5905-5) 7.8 4.4-11.3 [facility] HospitalAutomated blood eosinophil count as percentage of total eowyejwsvf2560-81-41 06:08:00* Test Item Value Reference Range Interpretation Comments Eosinophils (%) (Auto) (test code = 713-8) 2.1 0.0-6.0 [facility] HospitalAutomated blood basophil count as percentage of total xkibwrotdl2928-72-06 06:08:00* Test Item Value Reference Range Interpretation Comments Basophils (%) (Auto) (test code = 706-2) 0.5 0.0-1.0 [facility] HospitalFluoroscopic procedure less than one hour rtoxuoje1678-30-48 06:08:00* Test Item Value Reference Range Interpretation Comments IM GRANULOCYTES % (test code = IM GRANULOCYTES %) 0.5 0.0- 1.0 [facility] HospitalAutomated blood neutrophil count 2020-02-06 06:08:00* Test Item Value Reference Range Interpretation Comments Neutrophils # (Auto) (test code = 751-8) 10.0 2.1-6.9 [facility] HospitalBlood lymphocytes count (number/volume) 2020-02-06 06:08:00* Test Item Value Reference Range Interpretation Comments Lymphocytes # (Auto) (test code = 54445-8) 1.8 1.0-3.2 [facility] HospitalBlood monocytes automated count (number/volume)2020-02-06 06:08:00* Test Item Value Reference Range Interpretation Comments Monocytes # (Auto) (test code = 742-7) 1.0 0.2-0.8 [facility] HospitalAutomated blood eosinophil count 2020-02-06 06:08:00* Test Item Value Reference Range Interpretation Comments Eosinophils # (Auto) (test code = 711-2) 0.3 0.0-0.4 [facility] HospitalAutomated blood basophil count (count/volume)2020-02-06 06:08:00* Test Item Value Reference Range Interpretation Comments Basophils # (Auto) (test code = 704-7) 0.1 0.0-0.1 [facility] HospitalFluoroscopic procedure less than one hour mrmrmkro2526-53-19 06:08:00* Test Item Value Reference Range Interpretation Comments Absolute Immature Granulocyte (auto (dae t code = Absolute Immature Granulocyte (auto) 0.07 0-0.1 [facility] or plasma sodium measurement (moles/volume)2020-02-06 06:08:00* Test Item Value Reference Range Interpretation Comments Sodium Level (test code = 2951-2) 145 136-145 [facility] or plasma potassium measurement (moles/volume)2020-02-06 06:08:00* Test Item Value Reference Range Interpretation Comments Potassium Level (test code = 2823-3) 3.7 3.5-5.1 [facility] or plasma chloride measurement (moles/volume)2020-02-06 06:08:00* Test Item Value Reference Range Interpretation Comments Chloride Level (test code = 2075-0) 97 98-107 [facility]sterum or plasma carbon dioxide, total measurement (moles/volume)2020-02-06 06:08:00* Test Item Value Reference Range Interpretation Comments Carbon Dioxide Level (test code = 2028-9) 18 22-29 [facility]um or plasma anion kbg2366-56-36 06:08:00* Test Item Value Reference Range Interpretation Comments Anion Gap (test code = 80369-4) 33.7 8-16 [facility] or plasma urea nitrogen measurement (mass/volume)2020-02-06 06:08:00* Test Item Value Reference Range Interpretation Comments Blood Urea Nitrogen (test code = 3094-0) 50 7-26 [facility] or plasma creatinine measurement (mass/volume)2020-02-06 06:08:00* Test Item Value Reference Range Interpretation Comments Creatinine (test code = 2160-0) 8.07 0.57-1.11 [facility] or plasma urea nitrogen/creatinine mass smnsu5980-29-59 06:08:00* Test Item Value Reference Range Interpretation Comments BUN/Creatinine Ratio (test code = 3097-3) 6 6-25 [facility] HospitalEstimated glomerular filtration rate (GFR) mxorevfqwnsba8080-50-26 06:08:00* Test Item Value Reference Range Interpretation Comments Estimat Glomerular Filtration Rate (test code = 317014775) 5 >60 Ranges were taken from the National Kidney Disease Education Program and the [facility] Kidney Foundation literature.Reference ranges:60 or greater: Kzxdso91-47 ( for 3 consecutive months): Chronic kidney disease 15 or less: Kidney failureHouston Methodist Baytown HospitalGlucose bivocyyvnir4742-08-63 06:08:00* Test Item Value Reference Range Interpretation Comments Glucose Level (test code = WYG1609) 112 74-118 [facility] or plasma calcium measurement (mass/volume)2020-02-06 06:08:00* Test Item Value Reference Range Interpretation Comments Calcium Level (test code = 13509-5) 7.6 8.4-10.2 [facility] HospitalPhosphorus bcklcnamzji5643-89-85 06:08:00 * Test Item Value Reference Range Interpretation Comments Phosphorus Level (test code = IRL9082) 5.6 2.3-4.7 [facility] or plasma magnesium measurement (mass/volume)2020-02-06 06:08:00* Test Item Value Reference Range Interpretation Comments Magnesium Level (test code = 35791-2) 1.5 1.3-2.1 [facility]um or plasma intact pararthyroid hormone measurement (mass/volume)2020-02-04 13:46:00* Test Item Value Reference Range Interpretation Comments Parathyroid Hormone (test code = 2731-8) 243 [facility]sterum or plasma calcium measurement (mass/volume)2020-02-04 13:46:00* Test Item Value Reference Range Interpretation Comments Calcium (Send out) (test code = 44923-2) 8.2 8.7-10.3 [facility] HospitalFluoroscopic procedure less than one hour bpepqmrr6426-77-28 13:46:00* Test Item Value Reference Range Interpretation Comments Parathyroid Hormone Interpretation (test code = Parathyroid Hormone Interpretation) Comment . Interpretation Intact PTH Calcium (pg/mL) (mg/dL)Normal 15 - 65 8.6 - 10.2Pr imary Hyperparathyroidism >65 >10.2Secondary Hyperparathyroidism >65 <10.2Non-Parathyroid Hypercalcemia <65 >10.2Hypoparathyroidism <15 < 8.6Non- Parathyroid Hypocalcemia 15 - 65 < 8.6Performed at: - [facility] [id number] Director: Shravan Moss MD, Phone: [phone] at: [facility] [id number] Director: Claudio Carter MD, Phone: [phone] Scott [facility] Hillcresterum or plasma intact pararthyroid hormone measurement (mass/volume)2020-02-04 13:46:00* Test Item Value Reference Range Interpretation Comments Parathyroid Hormone (test code = 2731-8) 243 [facility]um or plasma calcium measurement (mass/volume)2020-02-04 13:46:00* Test Item Value Reference Range Interpretation Comments Calcium (Send out) (test code = 37236-7) 8.2 8.7-10.3 [facility] HospitalFluoroscopic procedure less than one hour vehwtdzl1257-09-43 13:46:00* Test Item Value Reference Range Interpretation Comments Parathyroid Hormone Interpretation (test code = Parathyroid Hormone Interpretation) Comment . Interpretation Intact PTH Calcium (pg/mL) (mg/dL)Normal 15 - 65 8.6 - 10.2Pr imary Hyperparathyroidism >65 >10.2Secondary Hyperparathyroidism >65 <10.2Non-Parathyroid Hypercalcemia <65 >10.2Hypoparathyroidism <15 < 8.6Non- Parathyroid Hypocalcemia 15 - 65 < 8.6Performed at: - [facility] [id number] Director: Shravan Moss MD, Phone: [phone] at: - [facility] [id number] Director: Claudio Carter MD, Phone: [phone] [facility] [id number] 20:08:00 [place] [address] Patient Name: TAY HERNANDEZ MR #: [id number] : 1950 Age/Sex: 69/F Req #: [id number] Adm Physician: CHAYO ZAYAS MD Ordered by: CHAYO ZAYAS MD Report #: [id number] Location: [facility]/SURG3 Room/Bed: [facility] Procedure: NM/HEPTOBILIARY W PHARM Exam Date: 02/03/20 Exam Time: 1215 REPORT STATUS: Signed Hepatobiliary Scan with Gallbladder Ejection Fraction Reason for exam: Abdominal pain; gallbl adder distension on CT Comparison: CT abdo/pelvis 02/01/2020 Report: Fo llowing intravenous administration of 5.5 millicuries of Tc-99m mebrofenin, dy namic images of the abdomen in the anterior projection were obtained through 3 4 minutes. Sincalide (CCK analog) 1.7 micrograms was administered intravenous ly over 30 minutes with additional imaging for determination of gallbladder ej ection fraction. Perfusion to the liver is normal. Extraction of tracer fr om the blood pool by the liver parenchyma is normal. Tracer is seen promptly within the biliary tract. The gallbladder begins to fill by 12 minutes post-i njection of tracer and fills adequately. Tracer is seen in the small bowel du ring the sincalide infusion. The gallbladder ejection fraction with administr ation of sincalide is 64% (normal greater than 40%). Impression: 1. Filling of the gallbladder excludes the diagnosis of acute cystic duct obstr uction/acute cholecystitis. 2. Normal gallbladder ejection fraction of 64% do es not support the clinical diagnosis of chronic cholecystitis/gallbladder dys kinesia. Signed by: Dr. Gricelda Dowd M.D. on 02/03/2020 8:20 PM Dicta rebeca By: GRICELDA DOWD MD 0 Transcribed By: CARROLL on 02/03/202019 COPY TO: CHAYO ZAYAS MD Serum or plasma folate measurement (mass/volume)2020-02-03 08:47:00* Test Item Value Reference Range Interpretation Comments Folate (test code = 2284-8) 2.2 >3.0 A serum folate concentration of less than 3.1 ng/mL isconsidered to represent cl inical deficiency.Performed at: [facility] [address] [id number] Director: Shravan Moss MD, Phone: [phone] [facility] & [facility] Hillcresterum or plasma folate measurement (mass/volume) 2020-02-03 08:47:00* Test Item Value Reference Range Interpretation Comments Folate (test code = 2284-8) 2.2 >3.0 A serum folate concentration of less than 3.1 ng/mL isconsidered to represent cl inical deficiency.Performed at: [facility] [address] [id number] Director: Shravan Moss MD, Phone: [phone] Methodist [facility] HospitalAutomated reticulocyte count as percentage of total vazteqxshhwg5422-31-69 05:34:00* Test Item Value Reference Range Interpretation Comments Percent Reticulocyte Count (test code = 77920-3) 2.4 0.8-2 .2 [facility] Hillcresterum or plasma iron measurement (mass/volume)2020-02-03 05:34:00* Test Item Value Reference Range Interpretation Comments Iron Level (test code = 2498-4) 33 50-170 [facility] Hillcresterum or plasma iron binding capacity measurement (mass/volume)2020-02-03 05:34:00* Test Item Value Reference Range Interpretation Comments Total Iron Binding Capacity (test code = 2500-7) 112 261-4 78 [facility] Hillcresterum or plasma iron saturation measurement (mass fraction)2020-02-03 05:34:00* Test Item Value Reference Range Interpretation Comments Percent Iron Saturation (test code = 2502-3) 29 15-50 [facility]cresterum or plasma transferrin measurement (mass/volume)2020-02-03 05:34:00* Test Item Value Reference Range Interpretation Comments Transferrin (test code = 3034-6) 80 180-382 [facility]cresterum or plasma ferritin measurement (mass/volume)2020-02-03 05:34:00* Test Item Value Reference Range Interpretation Comments Ferritin (test code = 2276-4) 1296.89 4.63-204.00 [facility] HospitalBlood cobalamin (vitamin B12) measurement (mass/volume)2020-02-03 05:34:00* Test Item Value Reference Range Interpretation Comments Vitamin B12 Level (test code = 93284-5) 1278 213-816 [facility] HospitalAutomated reticulocyte count as percentage of total okbanidtgvhz7590-75-27 05:34:00* Test Item Value Reference Range Interpretation Comments Percent Reticulocyte Count (test code = 12335-8) 2.4 0.8-2 .2 [facility]cresterum or plasma iron measurement (mass/volume)2020-02-03 05:34:00* Test Item Value Reference Range Interpretation Comments Iron Level (test code = 2498-4) 33 50-170 [facility]sterum or plasma iron binding capacity measurement (mass/volume)2020-02-03 05:34:00* Test Item Value Reference Range Interpretation Comments Total Iron Binding Capacity (test code = 2500-7) 112 261-4 78 [facility] Hillcresterum or plasma iron saturation measurement (mass fraction)2020-02-03 05:34:00* Test Item Value Reference Range Interpretation Comments Percent Iron Saturation (test code = 2502-3) 29 15-50 [facility]cresterum or plasma transferrin measurement (mass/volume)2020-02-03 05:34:00* Test Item Value Reference Range Interpretation Comments Transferrin (test code = 3034-6) 80 180-382 [facility]cresterum or plasma ferritin measurement (mass/volume)2020-02-03 05:34:00* Test Item Value Reference Range Interpretation Comments Ferritin (test code = 2276-4) 1296.89 4.63-204.00 [facility] HospitalBlood cobalamin (vitamin B12) measurement (mass/volume)2020-02-03 05:34:00* Test Item Value Reference Range Interpretation Comments Vitamin B12 Level (test code = 47099-6) 1278 213-816 [facility] Hillcresttool gastrointestinal hemoglobin hmsfyqtjy7979-76-91 04:13:00* Test Item Value Reference Range Interpretation Comments Stool Occult Blood (test code = 2335-8) POSITIVE NEGATIVE [facility] Hillcrestto gastrointestinal hemoglobin ddiagopmx8092-91-16 04:13:00* Test Item Value Reference Range Interpretation Comments Stool Occult Blood (test code = 2335-8) POSITIVE NEGATIVE [facility]cresterum or plasma creatine kinase measurement (enzymatic activity/volume)2020-02-02 13:15:00* Test Item Value Reference Range Interpretation Comments Creatine Kinase (test code = 2157-6) 13 29-168 [facility]cresterum or plasma creatine kinase MB measurement (mass/volume)2020-02-02 13:15:00* Test Item Value Reference Range Interpretation Comments Creatine Kinase MB (test code = 00104-0) 2.00 0-5.0 [facility] HospitalTroponin I measurement by highly sensitive enzyme nlkzwrrezue3719-76-66 13:15:00* Test Item Value Reference Range Interpretation Comments Troponin I (test code = 06436-4) 0.131 0-0.300 [facility]cresterum or plasma creatine kinase measurement (enzymatic activity/volume)2020-02-02 13:15:00* Test Item Value Reference Range Interpretation Comments Creatine Kinase (test code = 2157-6) 13 29-168 [facility]cresterum or plasma creatine kinase MB measurement (mass/volume)2020-02-02 13:15:00* Test Item Value Reference Range Interpretation Comments Creatine Kinase MB (test code = 85054-2) 2.00 0-5.0 [facility] HospitalTroponin I measurement by highly sensitive enzyme eqyszgkyqxb4141-03-19 13:15:00* Test Item Value Reference Range Interpretation Comments Troponin I (test code = 03520-2) 0.131 0-0.300 [facility]sterum or plasma total bilirubin measurement (mass/volume)2020-02-02 04:40:00* Test Item Value Reference Range Interpretation Comments Total Bilirubin (test code = 1975-2) 0.5 0.2-1.2 [facility] HospitalFluoroscopic procedure less than one hour lnikszhh3547-47-57 04:40:00* Test Item Value Reference Range Interpretation Comments Aspartate Amino Transf (AST/SGOT) (test code = Aspartate Amino Transf (AST/SGOT)) 17 5-34 [facility]sterum or plasma alanine aminotransferase measurement (enzymatic activity/volume)2020-02-02 04:40:00* Test Item Value Reference Range Interpretation Comments Alanine Aminotransferase (ALT/SGPT) (test code = 1742-6) 11 0-55 [facility]cresterum or plasma protein measurement (mass/volume)2020-02-02 04:40:00* Test Item Value Reference Range Interpretation Comments Total Protein (test code = 2885-2) 5.6 6.5-8.1 [facility]sterum or plasma albumin measurement (mass/volume)2020-02-02 04:40:00* Test Item Value Reference Range Interpretation Comments Albumin (test code = 1751-7) 2.3 3.5-5.0 [facility] HospitalPlasma globulin measurement (mass/volume) 2020-02-02 04:40:00* Test Item Value Reference Range Interpretation Comments Globulin (test code = 35909-3) 3.3 2.3-3.5 [facility]sterum or plasma albumin/globulin mass qspbf5556-13-49 04:40:00* Test Item Value Reference Range Interpretation Comments Albumin/Globulin Ratio (test code = 1759-0) 0.7 0.8-2.0 [facility]cresterum or plasma alkaline phosphatase measurement (enzymatic activity/volume)2020-02-02 04:40:00* Test Item Value Reference Range Interpretation Comments Alkaline Phosphatase (test code = 6768-6) 123 40-150 [facility]cresterum or plasma total bilirubin measurement (mass/volume)2020-02-02 04:40:00* Test Item Value Reference Range Interpretation Comments Total Bilirubin (test code = 1975-2) 0.5 0.2-1.2 [facility] HospitalFluoroscopic procedure less than one hour lqehhirb6044-32-13 04:40:00* Test Item Value Reference Range Interpretation Comments Aspartate Amino Transf (AST/SGOT) (test code = Aspartate Amino Transf (AST/SGOT)) 17 5-34 [facility]cresterum or plasma alanine aminotransferase measurement (enzymatic activity/volume)2020-02-02 04:40:00* Test Item Value Reference Range Interpretation Comments Alanine Aminotransferase (ALT/SGPT) (test code = 1742-6) 11 0-55 [facility]sterum or plasma protein measurement (mass/volume)2020-02-02 04:40:00* Test Item Value Reference Range Interpretation Comments Total Protein (test code = 2885-2) 5.6 6.5-8.1 [facility]sterum or plasma albumin measurement (mass/volume)2020-02-02 04:40:00* Test Item Value Reference Range Interpretation Comments Albumin (test code = 1751-7) 2.3 3.5-5.0 [facility] HospitalPlasma globulin measurement (mass/volume) 2020-02-02 04:40:00* Test Item Value Reference Range Interpretation Comments Globulin (test code = 90082-0) 3.3 2.3-3.5 [facility]sterum or plasma albumin/globulin mass [id number] 04:40:00* Test Item Value Reference Range Interpretation Comments Albumin/Globulin Ratio (test code = 1759-0) 0.7 0.8-2.0 [facility]sterum or plasma alkaline phosphatase measurement (enzymatic activity/volume)2020-02-02 04:40:00* Test Item Value Reference Range Interpretation Comments Alkaline Phosphatase (test code = 6768-6) 123 40-150 [facility] HospitalFluoroscopic procedure less than one hour gaxyolrt5436-84-36 20:20:00* Test Item Value Reference Range Interpretation Comments Coronavirus (PCR) (test code = Coronavirus (PCR)) NOT DETECTED NOTD ETECTED SARS-CoV-2 PCRHologic Aptima SARS-CoV-2 assay is a nucleic amplification test in tended for the qualitative detection of RNA from SARS-CoV-2 from nasopharyngeal (PIN CHASER) specimens. It is used under Emergency Use Authorization (EUA) by FDA.A posi tive result is indicative of the presence of SARS-CoV-2 RNA. Clinical correlatio n with patient history and other diagnostic information is necessary to determin e patient infection status.A negative (Not Detected) result does not preclude SA RS-CoV-2 infection. Clinical Correlation with patient history and other diagnost ic information should be used in patient management decisions.Invalid: Unable to generate a valid result on this specimen. Please submit a new specimen for repr at testing oc clinically indicated.Tesing performed by:[facility] Laboratory Services[address] [facility] [place] [address]ELTJ [id number], Kavin alaniz MD, PhDHouston Methodist Bay[facility] HospitalFluoroscopic procedure less than one hour [id number] 20:20:00* Test Item Value Reference Range Interpretation Comments Coronavirus (PCR) (test code = Coronavirus (PCR)) NOT DETECTED NOTD ETECTED SARS-CoV-2 PCRHologic Aptima SARS-CoV-2 assay is a nucleic amplification test in tended for the qualitative detection of RNA from SARS-CoV-2 from nasopharyngeal (PIN CHASER) specimens. It is used under Emergency Use Authorization (EUA) by FDA.A posi tive result is indicative of the presence of SARS-CoV-2 RNA. Clinical correlatio n with patient history and other diagnostic information is necessary to determin e patient infection status.A negative (Not Detected) result does not preclude SA RS-CoV-2 infection. Clinical Correlation with patient history and other diagnost ic information should be used in patient management decisions.Invalid: Unable to generate a valid result on this specimen. Please submit a new specimen for repr at testing oc clinically indicated.Tesing performed by:[facility] Laboratory Services[address] [place] [id number], Kavin alaniz MD, PhDHouston Methodist Baytown HospitalBacterial urine culture 2020-02-01 15:13:00* Test Item Value Reference Range Interpretation Comments Urine Culture (test code = 630-4) YEAST SPECIES [facility] HospitalBacterial urine [id number] 15:13:00* Test Item Value Reference Range Interpretation Comments Urine Culture (test code = 630-4) GERRY TROPICALIS [facility] HospitalCT ABDOMEN/PELVIS [id number] 15:06:00 [facility] [address] [place] [address] Patient Name: TAY HERNANDEZ MR #: [id number] : 1950 Age/Sex: 69/F Req #: [id number] Adm Physician: CHAYO ZAYAS MD Ordered by: BOBY BOJORQUEZ MD Report #: [id number] Location: [facility] Room/Bed: [place] [address] Procedure: [id number] CT/CT ABDOMEN/ PELVIS WO Exam Date: 02/01/20 Exam Time: 1401 REPORT STATUS: Signed EXAM: CT Abdomen and Pelvis WITHOUT contrast INDICATION: lower abd pain [id number] Y COMPARISON: CT abdomen/pelvis 01/27/2020 TECHNIQUE: Abdomen and pelvis were scanned utilizing a multidetector helical scanner from the lung b ase to the pubic symphysis without administration of IV contrast. Absence of i ntravenous contrast decreases sensitivity for detection of focal lesions and v ascular pathology. Coronal and sagittal reformations were obtained. Routine pr otocol was performed. IV CONTRAST: None ORAL CONTRAST: Gastrograf in COMPLICATIONS: None RADIATION DOSE: Total DLP: 7 08.44 mGy*cm Estimated effective dose: (DLP x 0.015 x size factor) mSv CTDIvol has been reviewed. It is below the limits set by the Radiation Pr otocol Committee (RPC). Dose modulation, iterative reconstruction, and/or weight based adjustment of the mA/kV was utilized to reduce the radiation dose to as low as reasonably achievable. FINDINGS: LINES and TUBES: Un changed position of peritoneal dialysis catheter which coils within the pelvis . LOWER THORAX: Lung bases are clear. Atherosclerotic calcifications throu ghout the visualized coronary arteries. Otherwise remaining visualized portion s of inferior mediastinum are unremarkable given lack of IV contrast. HEP ATOBILIARY: Hepatic size and attenuation are within normal limits. Small amoun t of perihepatic fluid layering beneath the right hemidiaphragm. No focal hep atic lesions given limitations with lack of IV contrast. No biliary ductal dil ation. GALLBLADDER: Redemonstrated gallbladder distention with no radiopaq ue stones or sludge. Questionable gallbladder wall thickening. SPLEEN: N o splenomegaly. PANCREAS: No focal masses or ductal dilatation. ADR ENALS: No adrenal nodules KIDNEYS/URETERS: Bilateral renal atrophy. No hy dronephrosis. No cystic or solid mass lesions given limitations with lack of I V contrast. No stones. GI TRACT: No abnormal distention, wall thickening, or evidence of bowel obstruction. Enteric contrast extends to the distal small bowel. Few scattered colonic diverticula without evidence of acute diverticu litis. Appendix is normal. PELVIC ORGANS/BLADDER: Status post hysterecto my. Redemonstrated left adnexal cystic lesion measuring up to 3.3 cm. Urinar y bladder is grossly unremarkable given suboptimal distention. LYMPH NODES: No lymphadenopathy. VESSELS: Diffuse episodic calcifications of the abdomi nal and pelvic arteries. Further evaluation limited by lack of IV contrast. PERITONEUM / RETROPERITONEUM: Small amount of perihepatic free fluid as alden cribed above. Additional small amount of fluid layering within the pelvis, lik francesco related to peritoneal dialysis. BONES: No acute osseous abnormality mil d multilevel degenerative changes of the thoracolumbar spine. SOFT TISSUE S: Mild soft tissue edema layering along the dependent left flank and bilatera l hips. IMPRESSION: 1. Redemonstrated gallbladder distention w ith no radiopaque stones or sludge. Questionable gallbladder wall thickening. Recommend correlation with lab values and if clinical concern for acute cholec ystitis persists, consider further evaluation with gallbladder ultrasound. 2 . Small amount of nonspecific perihepatic fluid, may be related to peritoneal dialysis or gallbladder pathology. 3. Redemonstrated left adnexal 3.3 cm cys tic lesion. Lesion was not visualized on prior pelvic ultrasound, consider rep eat nonemergent follow-up outpatient pelvic ultrasound. Signed by: Dr. Henrietta Garcia M.D. on 02/01/2020 3:20 PM Dictated By: BRADY GARCIA MD 1520 Transcribed By: Kira IGLESIAS on 02/01/20 1520 COPY TO: BOBY BOJORQUEZ MD Urine color uzxytiznqwsxp2648-61-61 14:20:00* Test Item Value Reference Range Interpretation Comments Urine Color (test code = 5778-6) YELLOW YELLOW [facility] HospitalUrine [id number] 14:20:00* Test Item Value Reference Range Interpretation Comments Urine Clarity (test code = 80849-5) SL CLOUDY CLEAR [facility]stpecific gravity of Urine by Test strip 2020-02-01 14:20:00* Test Item Value Reference Range Interpretation Comments Urine Specific [place] (test code = 5811-5) 1.020 1.010-1.02 5 [facility] HospitalUrine pH measurement by automated test jtpel4615-03-21 14:20:00* Test Item Value Reference Range Interpretation Comments Urine pH (test code = 52392-2) 5.5 5-7 [facility] HospitalUrine leukocyte esterase detection by [id number] 14:20:00* Test Item Value Reference Range Interpretation Comments Urine Leukocyte Esterase (test code = 5799-2) LARGE NEGATIVE [facility] HospitalUrine nitrite mdniwvdsp7906-57-99 14:20:00* Test Item Value Reference Range Interpretation Comments Urine Nitrite (test code = 95575-0) NEGATIVE NEGATIVE [facility] HospitalUrine protein measurement by test strip (mass/volume)2020-02-01 14:20:00* Test Item Value Reference Range Interpretation Comments Urine Protein (test code = 5804-0) 1+ NEGATIVE [facility] HospitalUrine glucose lxrgdfriq5059-39-73 14:20:00* Test Item Value Reference Range Interpretation Comments Urine Glucose (UA) (test code = 2349-9) NEGATIVE NEGATIVE [facility] HospitalUrine ketones detection by automated test [id number] 14:20:00* Test Item Value Reference Range Interpretation Comments Urine Ketones (test code = 90537-2) NEGATIVE NEGATIVE [facility] HospitalUrine urobilinogen measurement by test strip (mass/volume)2020-02-01 14:20:00* Test Item Value Reference Range Interpretation Comments Urine Urobilinogen (test code = 91341-5) 0.2 0.2-1 [facility] HospitalUrine total bilirubin measurement (mass/volume)2020-02-01 14:20:00* Test Item Value Reference Range Interpretation Comments Urine Bilirubin (test code = 1978-6) NEGATIVE NEGATIVE [facility] HospitalUrine erythrocytes hypwfrdxt9138-89-89 14:20:00* Test Item Value Reference Range Interpretation Comments Urine Blood (test code = 55655-8) TRACE NEGATIVE [facility] HospitalAutomated urine sediment leukocyte count by microscopy (number/high power field)2020-02-01 14:20:00* Test Item Value Reference Range Interpretation Comments Urine WBC (test code = 5821-4) 11-20 0-5 [facility] HospitalErythrocytes detection in urine sediment by light fvmkuakxig1343-19-35 14:20:00* Test Item Value Reference Range Interpretation Comments Urine RBC (test code = 62948-6) 6-10 0-5 [facility] HospitalBacteria detection in urine sediment by light zzgulunneo3229-40-76 14:20:00* Test Item Value Reference Range Interpretation Comments Urine Bacteria (test code = 79495-5) RARE NONE [facility] HospitalEpithelial cells detection in urine sediment by light rupncenbqy9089-66-52 14:20:00* Test Item Value Reference Range Interpretation Comments Urine Epithelial Cells (test code = 34337-0) FEW NONE [facility] HospitalUrine color nlplmgwjdychk5937-51-64 14:20:00* Test Item Value Reference Range Interpretation Comments Urine Color (test code = 5778-6) YELLOW YELLOW [facility] HospitalUrine mzqqmwd9509-29-84 14:20:00* Test Item Value Reference Range Interpretation Comments Urine Clarity (test code = 96046-7) SL CLOUDY CLEAR [facility]stpecific gravity of Urine by Test strip 2020-02-01 14:20:00* Test Item Value Reference Range Interpretation Comments Urine Specific [place] (test code = 5811-5) 1.020 1.010-1.02 5 [facility] HospitalUrine pH measurement by automated test [id number] 14:20:00* Test Item Value Reference Range Interpretation Comments Urine pH (test code = 14294-8) 5.5 5-7 [facility] HospitalUrine leukocyte esterase detection by zicrdqxu6124-93-09 14:20:00* Test Item Value Reference Range Interpretation Comments Urine Leukocyte Esterase (test code = 5799-2) LARGE NEGATIVE [facility] HospitalUrine nitrite nscasrepl9115-73-79 14:20:00* Test Item Value Reference Range Interpretation Comments Urine Nitrite (test code = 99719-2) NEGATIVE NEGATIVE [facility] HospitalUrine protein measurement by test strip (mass/volume)2020-02-01 14:20:00* Test Item Value Reference Range Interpretation Comments Urine Protein (test code = 5804-0) 1+ NEGATIVE [facility] HospitalUrine glucose itxxogken2866-23-82 14:20:00* Test Item Value Reference Range Interpretation Comments Urine Glucose (UA) (test code = 2349-9) NEGATIVE NEGATIVE [facility] HospitalUrine ketones detection by automated test [id number] 14:20:00* Test Item Value Reference Range Interpretation Comments Urine Ketones (test code = 44306-0) NEGATIVE NEGATIVE [facility] HospitalUrine urobilinogen measurement by test strip (mass/volume)2020-02-01 14:20:00* Test Item Value Reference Range Interpretation Comments Urine Urobilinogen (test code = 13695-0) 0.2 0.2-1 [facility] HospitalUrine total bilirubin measurement (mass/volume)2020-02-01 14:20:00* Test Item Value Reference Range Interpretation Comments Urine Bilirubin (test code = 1978-6) NEGATIVE NEGATIVE [facility] HospitalUrine erythrocytes eckquywxa8185-22-22 14:20:00* Test Item Value Reference Range Interpretation Comments Urine Blood (test code = 48515-2) TRACE NEGATIVE [facility] HospitalAutomated urine sediment leukocyte count by microscopy (number/high power field)2020-02-01 14:20:00* Test Item Value Reference Range Interpretation Comments Urine WBC (test code = 5821-4) 11-20 0-5 [facility] HospitalErythrocytes detection in urine sediment by light adybsofrsm1856-48-88 14:20:00* Test Item Value Reference Range Interpretation Comments Urine RBC (test code = 29290-4) 6-10 0-5 [facility] HospitalBacteria detection in urine sediment by light wzaxzuxxnm0437-79-33 14:20:00* Test Item Value Reference Range Interpretation Comments Urine Bacteria (test code = 50039-6) RARE NONE [facility] HospitalEpithelial cells detection in urine sediment by light ylagwnupex6640-39-15 14:20:00* Test Item Value Reference Range Interpretation Comments Urine Epithelial Cells (test code = 46272-8) FEW NONE [facility] HospitalCHEST SINGLE (PORTABLE)2020-02-01 14:08:00 [facility] [address] [address] Patient Name: TAY HERNANDEZ MR #: [id number] : 1950 Age/Sex: 69/F Req #: [id number] Adm Physician: CHAYO ZAYAS MD Ordered by: BOBY BOJORQUEZ MD Report #: [id number] Location: [facility] Room/Bed: [address] [address] Procedure: [id number] DX/CHEST SINGL E (PORTABLE) Exam Date: 02/01/20 Exam Time: 123 REPORT STATUS: Signed EXAMINATION: CHEST SINGLE (PORTABLE) INDICATION: abd pain [id number] COMPARISON: Chest radiograph 01/27/2020 FINDINGS: TUBES and LINES: None. LUNGS: Normal lung volumes. Lungs are clear. No consol idations. PLEURA: No pleural effusion or pneumothorax. HEART AND MEDI ASTINUM: Unchanged mild enlarged cardiac silhouette. BONES AND SOFT TISSU ES: No acute osseous lesion. Soft tissues are unremarkable. UPPER ABDOM EN: No free air under the diaphragm. IMPRESSION: 1. No acute thorac ic radiographic abnormality. 2. Unchanged cardiomegaly. Signed by: Dr Sarah Garcia M.D. on 02/01/2020 2:10 PM Dictated By: BRADY GARCIA MD 1410 Transcribed B y: CARROLL on 02/01/20 141 COPY TO: BOBY BOJORQUEZ MD Prothrombin time (PT) in platelet poor plasma by coagulation vivwr9868-49-64 12:35:00* Test Item Value Reference Range Interpretation Comments Prothrombin Time (test code = 5902-2) 16.6 11.9-14.5 [facility] HospitalINR in Platelet poor plasma by Coagulation snrwl2090-50-13 12:35:00* Test Item Value Reference Range Interpretation Comments Prothromb Time International Ratio (test code = 6301-6) 1.28 Oral Anticoagulant Therapy INR Values:1. Low Intensity Therapy 1.5 - 2.02 . Moderate Intensity Therapy 2.0 - 3.03. High Intensity Therapy(1) 2.5 - 3. 54. High Intensity Therapy(2) 3.0 - 4.05. Panic Value INR > 5.0 [facility] HospitalActivated partial thromboplastin time (aPTT) in platelet poor plasma by coagulation fkyns0571-92-59 12:35:00* Test Item Value Reference Range Interpretation Comments Activated Partial Thromboplast Time (test code = 60253-4) 37.1 23.8-35.5 [facility] HospitalFluoroscopic procedure less than one hour itupstsz1520-14-64 12:35:00* Test Item Value Reference Range Interpretation Comments Lactic Acid Level (test code = Lactic Acid Level) 1.6 0.5- 2.0 [facility] HospitalBlood yuwhkux5609-43-77 12:35:00* Test Item Value Reference Range Interpretation Comments Blood Culture (test code = 89345131) NO GROWTH AFTER 5 DAYS, FINAL REPORT [facility] HospitalProthrombin time (PT) in platelet poor plasma by coagulation jlpef2713-54-26 12:35:00* Test Item Value Reference Range Interpretation Comments Prothrombin Time (test code = 5902-2) 16.6 11.9-14.5 [facility] HospitalINR in Platelet poor plasma by Coagulation dxlry7192-30-03 12:35:00* Test Item Value Reference Range Interpretation Comments Prothromb Time International Ratio (test code = 6301-6) 1.28 Oral Anticoagulant Therapy INR Values:1. Low Intensity Therapy 1.5 - 2.02 . Moderate Intensity Therapy 2.0 - 3.03. High Intensity Therapy(1) 2.5 - 3. 54. High Intensity Therapy(2) 3.0 - 4.05. Panic Value INR > 5.0 [facility] HospitalActivated partial thromboplastin time (aPTT) in platelet poor plasma by coagulation pmceb0930-31-55 12:35:00* Test Item Value Reference Range Interpretation Comments Activated Partial Thromboplast Time (test code = 65834-1) 37.1 23.8-35.5 [facility] HospitalFluoroscopic procedure less than one hour jcwbtprl4072-67-11 12:35:00* Test Item Value Reference Range Interpretation Comments Lactic Acid Level (test code = Lactic Acid Level) 1.6 0.5- 2.0 [facility] HospitalBlood btoujuz7619-89-65 12:35:00* Test Item Value Reference Range Interpretation Comments Blood Culture (test code = 03274741) NO GROWTH AFTER 5 DAYS, FINAL REPORT [facility] HospitalBlnorth [facility] hospital leukocytes automated count (number/volume)2020-01-31 05:00:00* Test Item Value Reference Range Interpretation Comments White Blood Count (test code = 6690-2) 12.01 4.8-10.8 [facility] erythrocytes automated count (number/volume)2020-01-31 05:00:00* Test Item Value Reference Range Interpretation Comments Red Blood Count (test code = 789-8) 2.80 3.6-5.1 [facility] HospitalBlood hemoglobin measurement (moles/volume)2020-01-31 05:00:00* Test Item Value Reference Range Interpretation Comments Hemoglobin (test code = 75780-2) 8.0 12.0-16.0 [facility] HospitalAutomated blood hematocrit (volume fraction)2020-01-31 05:00:00* Test Item Value Reference Range Interpretation Comments Hematocrit (test code = 4544-3) 24.5 34.2-44.1 [facility] HospitalAutomated erythrocyte mean corpuscular imrqsh8484-26-02 05:00:00* Test Item Value Reference Range Interpretation Comments Mean Corpuscular Volume (test code = 787-2) 87.5 81-99 [facility] HospitalAutomated erythrocyte mean corpuscular hemoglobin (mass per erythrocyte)2020-01-31 05:00:00* Test Item Value Reference Range Interpretation Comments Mean Corpuscular Hemoglobin (test code = 785-6) 28.6 28-32 [facility] HospitalAutomated erythrocyte mean corpuscular hemoglobin concentration measurement (mass/volume)2020-01-31 05:00:00* Test Item Value Reference Range Interpretation Comments Mean Corpuscular Hemoglobin Concent (test code = 786-4) 32.7 31-35 [facility] HospitalRDW SlqTk-Szd2975-42-18 05:00:00* Test Item Value Reference Range Interpretation Comments Red Cell Distribution Width (test code = 21601-1) 17.2 11.7 -14.4 [facility] HospitalAutomated blood platelet count (count/volume)2020-01-31 05:00:00* Test Item Value Reference Range Interpretation Comments Platelet Count (test code = 777-3) 239 140-360 [facility] HospitalAutomated blood segmented neutrophil count as percentage of total wslpugbefz5875-43-05 05:00:00* Test Item Value Reference Range Interpretation Comments Neutrophils (%) (Auto) (test code = 51509-1) 82.4 38.7-80.0 [facility] HospitalAutomat blood lymphocyte count as percentage ot total kswhirhfdi9321-81-16 05:00:00* Test Item Value Reference Range Interpretation Comments Lymphocytes (%) (Auto) (test code = 736-9) 8.7 18.0-39.1 [facility] HospitalAutomated blood monocyte count as percentage of total okciglzzzp7992-24-89 05:00:00* Test Item Value Reference Range Interpretation Comments Monocytes (%) (Auto) (test code = 5905-5) 5.5 4.4-11.3 [facility] HospitalAutomated blood eosinophil count as percentage of total tbohctamjz3799-50-94 05:00:00* Test Item Value Reference Range Interpretation Comments Eosinophils (%) (Auto) (test code = 713-8) 2.3 0.0-6.0 [facility] HospitalAutomated blood basophil count as percentage of total ntovteoash2844-00-38 05:00:00* Test Item Value Reference Range Interpretation Comments Basophils (%) (Auto) (test code = 706-2) 0.5 0.0-1.0 [facility] HospitalFluoroscopic procedure less than one hour eztqhngw5938-85-29 05:00:00* Test Item Value Reference Range Interpretation Comments IM GRANULOCYTES % (test code = IM GRANULOCYTES %) 0.6 0.0- 1.0 [facility] HospitalAutomated blood neutrophil count 2020-01-31 05:00:00* Test Item Value Reference Range Interpretation Comments Neutrophils # (Auto) (test code = 751-8) 9.9 2.1-6.9 [facility] HospitalBlood lymphocytes count (number/volume) 2020-01-31 05:00:00* Test Item Value Reference Range Interpretation Comments Lymphocytes # (Auto) (test code = 66078-5) 1.1 1.0-3.2 [facility] HospitalBlood monocytes automated count (number/volume)2020-01-31 05:00:00* Test Item Value Reference Range Interpretation Comments Monocytes # (Auto) (test code = 742-7) 0.7 0.2-0.8 [facility] HospitalAutomated blood eosinophil count 2020-01-31 05:00:00* Test Item Value Reference Range Interpretation Comments Eosinophils # (Auto) (test code = 711-2) 0.3 0.0-0.4 [facility] HospitalAutomated blood basophil count (count/volume)2020-01-31 05:00:00* Test Item Value Reference Range Interpretation Comments Basophils # (Auto) (test code = 704-7) 0.1 0.0-0.1 [facility] HospitalFluoroscopic procedure less than one hour jkvirzss2737-89-23 05:00:00* Test Item Value Reference Range Interpretation Comments Absolute Immature Granulocyte (auto (dae t code = Absolute Immature Granulocyte (auto) 0.07 0-0.1 [facility] or plasma sodium measurement (moles/volume)2020-01-31 05:00:00* Test Item Value Reference Range Interpretation Comments Sodium Level (test code = 2951-2) 136 136-145 [facility]cresterum or plasma potassium measurement (moles/volume)2020-01-31 05:00:00* Test Item Value Reference Range Interpretation Comments Potassium Level (test code = 2823-3) 3.3 3.5-5.1 [facility]sterum or plasma chloride measurement (moles/volume)2020-01-31 05:00:00* Test Item Value Reference Range Interpretation Comments Chloride Level (test code = 2075-0) 95 98-107 [facility]sterum or plasma carbon dioxide, total measurement (moles/volume)2020-01-31 05:00:00* Test Item Value Reference Range Interpretation Comments Carbon Dioxide Level (test code = 2028-9) 24 22-29 [facility]sterum or plasma anion frz3876-40-15 05:00:00* Test Item Value Reference Range Interpretation Comments Anion Gap (test code = 85279-4) 20.3 8-16 [facility]sterum or plasma urea nitrogen measurement (mass/volume)2020-01-31 05:00:00* Test Item Value Reference Range Interpretation Comments Blood Urea Nitrogen (test code = 3094-0) 43 7-26 [facility]sterum or plasma creatinine measurement (mass/volume)2020-01-31 05:00:00* Test Item Value Reference Range Interpretation Comments Creatinine (test code = 2160-0) 6.76 0.57-1.11 [facility]sterum or plasma urea nitrogen/creatinine mass migmf5299-12-41 05:00:00* Test Item Value Reference Range Interpretation Comments BUN/Creatinine Ratio (test code = 3097-3) 6 6-25 [facility] HospitalEstimated glomerular filtration rate (GFR) awdnuwvprmpji3820-36-13 05:00:00* Test Item Value Reference Range Interpretation Comments Estimat Glomerular Filtration Rate (test code = 637593059) 6 >60 Ranges were taken from the National Kidney Disease Education Program and the [facility] Kid[facility] Foundation literature.Reference ranges:60 or greater: Ynhzdu91-85 ( for 3 consecutive months): Chronic kidney disease 15 or less: Kidney failureHouston Methodist Baytown HospitalGlucose sojszhfepij0017-72-73 05:00:00* Test Item Value Reference Range Interpretation Comments Glucose Level (test code = SAH0867) 165 74-118 [facility]cresterum or plasma calcium measurement (mass/volume)2020-01-31 05:00:00* Test Item Value Reference Range Interpretation Comments Calcium Level (test code = 84882-1) 7.5 8.4-10.2 [facility]Capillary [facility] glucose measurement by glucometer (mass/volume)2020-01-30 20:33:00* Test Item Value Reference Range Interpretation Comments Bedside Glucose (test code = 85804-1) 101 70-120 Meter ID: [id number] [facility] HospitalUS PELVIS COMPLETE NON SI1079-53-55 18:08:00 [facility] [address] [address] Patient Name: TAY HERNANDEZ MR #: [id number] : 1950 Age/Sex: 69/F Req #: [id number] Adm Physician: CHAYO ZAYAS MD Ordered by: CHAYO ZAYAS MD Report #: [id number] Location: [facility] Room/Bed: [address] [address] Procedure: [id number] US/US PELVIS COM PLETE NON OB Exam Date: 01/30/20 Exam Time: 1731 REPORT STATUS: Signed EXAM: Transab dominal Pelvic Ultrasound INDICATION: Left adnexal cystic lesion , status p ost hysterectomy. COMPARISON: None TECHNIQUE: Grayscale transverse and sa gittal transabdominal images were obtained of the pelvis. Transvaginal imagin g could not be performed, as the patient was unable to tolerate exam CLIN ICAL HISTORY: 69 year old G7, P7; last menstrual period: Postmenopausal. FINDINGS: Uterus: Absent. Right ovary: Not visualized. Obscured by overlying bowel gas. Left ovary: Not visualized. Obscured by overlying b owel gas. Adnexa: Normal. No focal lesions are noted. Cul-de-sac: No f ree fluid IMPRESSION: 1. Limited exam, as transvaginal portion could not be performed, per patient's request. 2. Status post hysterectomy. Ova bia could not be visualized due to overlying bowel gas. Signed by: Dr. Kira Piña M.D. on 01/30/2020 6:10 PM Dictated By: TALA Simon 09 Transcribed By: CARROLL on 01/30/201809 COPY TO: CHAYO ZAYAS MD Serum or plasma magnesium measurement (mass/volume)2020-01-30 05:30:00* Test Item Value Reference Range Interpretation Comments Magnesium Level (test code = 75780-7) 1.4 1.3-2.1 [facility]sterum or plasma creatine kinase measurement (enzymatic activity/volume)2020-01-28 13:15:00* Test Item Value Reference Range Interpretation Comments Creatine Kinase (test code = 2157-6) 26 29-168 [facility]cresterum or plasma creatine kinase MB measurement (mass/volume)2020-01-28 13:15:00* Test Item Value Reference Range Interpretation Comments Creatine Kinase MB (test code = 55826-9) 2.20 0-5.0 [facility] HospitalTroponin I measurement by highly sensitive enzyme woypjjqvcgv1694-82-33 13:15:00* Test Item Value Reference Range Interpretation Comments Troponin I (test code = 49527-9) 0.221 0-0.300 [facility] HospitalUrine color pgbzrrudobljz2433-31-74 07:40:00* Test Item Value Reference Range Interpretation Comments Urine Color (test code = 5778-6) STRAW YELLOW [facility] HospitalUrine mhfavdb6257-49-95 07:40:00* Test Item Value Reference Range Interpretation Comments Urine Clarity (test code = 62741-9) CLEAR CLEAR [facility] Hill[facility]stpecific gravity of Urine by Test strip 2020-01-28 07:40:00* Test Item Value Reference Range Interpretation Comments Urine Specific [place] (test code = 5811-5) 1.020 1.010-1.02 5 [facility] HospitalUrine pH measurement by automated test ufclx6983-32-84 07:40:00* Test Item Value Reference Range Interpretation Comments Urine pH (test code = 79678-2) 7.5 5-7 [facility] HospitalUrine leukocyte esterase detection by ngyaaadd8376-99-81 07:40:00* Test Item Value Reference Range Interpretation Comments Urine Leukocyte Esterase (test code = 5799-2) NEGATIVE NEGATIVE [facility] HospitalUrine nitrite tuoqhqxot1150-45-92 07:40:00* Test Item Value Reference Range Interpretation Comments Urine Nitrite (test code = 92734-0) NEGATIVE NEGATIVE [facility] HospitalUrine protein measurement by test strip (mass/volume)2020-01-28 07:40:00* Test Item Value Reference Range Interpretation Comments Urine Protein (test code = 5804-0) 1+ NEGATIVE [facility] HospitalUrine glucose righzcjht8430-67-64 07:40:00* Test Item Value Reference Range Interpretation Comments Urine Glucose (UA) (test code = 2349-9) 2+ NEGATIVE [facility] HospitalUrine ketones detection by automated test xxhqi7602-92-02 07:40:00* Test Item Value Reference Range Interpretation Comments Urine Ketones (test code = 42075-7) NEGATIVE NEGATIVE [facility] HospitalUrine urobilinogen measurement by test strip (mass/volume)2020-01-28 07:40:00* Test Item Value Reference Range Interpretation Comments Urine Urobilinogen (test code = 79844-4) 0.2 0.2-1 [facility] HospitalUrine total bilirubin measurement (mass/volume)2020-01-28 07:40:00* Test Item Value Reference Range Interpretation Comments Urine Bilirubin (test code = 1978-6) NEGATIVE NEGATIVE [facility] HospitalUrine erythrocytes xejzfpkms3740-39-09 07:40:00* Test Item Value Reference Range Interpretation Comments Urine Blood (test code = 12889-7) TRACE NEGATIVE [facility] HospitalAutomated urine sediment leukocyte count by microscopy (number/high power field)2020-01-28 07:40:00* Test Item Value Reference Range Interpretation Comments Urine WBC (test code = 5821-4) 6-10 0-5 [facility] HospitalErythrocytes detection in urine sediment by light cgvuhlkkxm4180-49-75 07:40:00* Test Item Value Reference Range Interpretation Comments Urine RBC (test code = 73760-4) 04-03 0-5 [facility] HospitalBacteria detection in urine sediment by light xusvbloaqy5638-73-16 07:40:00* Test Item Value Reference Range Interpretation Comments Urine Bacteria (test code = 40135-2) FEW NONE [facility] HospitalEpithelial cells detection in urine sediment by light hozkvpqzfw1653-45-57 07:40:00* Test Item Value Reference Range Interpretation Comments Urine Epithelial Cells (test code = 80840-5) NONE NONE [facility] Hill[facility]stpecimen source identification of body jambo4917-07-47 07:40:00* Test Item Value Reference Range Interpretation Comments Body Fluid Type (test code = 86972-4) PERITONEAL [facility] HospitalEvaluation of color of body fluid 2020-01-28 07:40:00* Test Item Value Reference Range Interpretation Comments Body Fluid Color (test code = 6824-7) STRAW [facility] HospitalDetermination of appearance of body fluid 2020-01-28 07:40:00* Test Item Value Reference Range Interpretation Comments Body Fluid Appearance (test code = 9335-1) CLEAR [facility] body fluid leukocytes count (number/volume)2020-01-28 07:40:00* Test Item Value Reference Range Interpretation Comments Body Fluid WBC (test code = 6743-9) 4 --- 01/28/20 0845 ---BF WBC previously reported as: 4 cells/uL [facility] body fluid erythrocytes count (number/volume) 2020-01-28 07:40:00* Test Item Value Reference Range Interpretation Comments Body Fluid RBC (test code = 6741-3) 10 --- 01/28/20 0845 ---BF RBC previously reported as: 10 cells/uL [facility] body fluid neutrophils/100 agubvmqyeo4962-11-94 07:40:00* Test Item Value Reference Range Interpretation Comments Body Fluid Neutrophils (test code = 44516-7) 1 [facility] HospitalBody fluid lymphocyte keusu0252-49-73 07:40:00* Test Item Value Reference Range Interpretation Comments Body Fluid Lymphocytes (test code = 37354440) 61 [facility] HospitalBody fluid monocyte aoiwh8785-88-22 07:40:00* Test Item Value Reference Range Interpretation Comments Body Fluid Monocytes (test code = 27175-3) 38 [facility] HospitalTotal cell xsnza2156-04-62 07:40:00* Test Item Value Reference Range Interpretation Comments Body Fluid Total Cells Counted (test code = 97866-9) 100 [facility] HospitalFluoroscopic procedure less than one hour vysrfhty6773-58-36 07:40:00* Test Item Value Reference Range Interpretation Comments Body Fluid Comment (test code = Body Fluid Comment) See Comment RARE MESOTHEIAL CELLS OBSERVEDHouston [facility] Fluoroscopic procedure less than one hour gbgcdyis7613-64-57 07:40:00* Test Item Value Reference Range Interpretation Comments Body Fluid Comment (test code = Body Fluid Comment) See Comment RARE MESOTHEIAL CELLS OBSERVEDHouston [facility] Fluoroscopic procedure less than one hour ixjmxisg8285-95-03 07:40:00* Test Item Value Reference Range Interpretation Comments Body Fluid Comment (test code = Body Fluid Comment) See Comment RARE MESOTHEIAL CELLS OBSERVEDHouston [facility] Fluoroscopic procedure less than one hour vkaghyzm3560-91-06 04:30:00* Test Item Value Reference Range Interpretation Comments Hemoglobin A1c Percent (test code = Hemoglobin A1c Percent) 6.6 4.0-7.0 [facility] or plasma total bilirubin measurement (mass/volume)2020-01-28 04:30:00* Test Item Value Reference Range Interpretation Comments Total Bilirubin (test code = 1975-2) 0.4 0.2-1.2 [facility] HospitalFluoroscopic procedure less than one hour iciicbbh6644-62-51 04:30:00* Test Item Value Reference Range Interpretation Comments Aspartate Amino Transf (AST/SGOT) (test code = Aspartate Amino Transf (AST/SGOT)) 9 5-34 [facility]sterum or plasma alanine aminotransferase measurement (enzymatic activity/volume)2020-01-28 04:30:00* Test Item Value Reference Range Interpretation Comments Alanine Aminotransferase (ALT/SGPT) (test code = 1742-6) 9 0-55 [facility]um or plasma protein measurement (mass/volume)2020-01-28 04:30:00* Test Item Value Reference Range Interpretation Comments Total Protein (test code = 2885-2) 5.0 6.5-8.1 [facility]um or plasma albumin measurement (mass/volume)2020-01-28 04:30:00* Test Item Value Reference Range Interpretation Comments Albumin (test code = 1751-7) 2.2 3.5-5.0 [facility] HospitalPlasma globulin measurement (mass/volume) 2020-01-28 04:30:00* Test Item Value Reference Range Interpretation Comments Globulin (test code = 88920-6) 2.8 2.3-3.5 [facility]um or plasma albumin/globulin mass jpvxu7057-73-41 04:30:00* Test Item Value Reference Range Interpretation Comments Albumin/Globulin Ratio (test code = 1759-0) 0.8 0.8-2.0 [facility]sterum or plasma alkaline phosphatase measurement (enzymatic activity/volume)2020-01-28 04:30:00* Test Item Value Reference Range Interpretation Comments Alkaline Phosphatase (test code = 6768-6) 89 40-150 [facility]sterum or plasma triglyceride measurement (mass/volume)2020-01-28 04:30:00* Test Item Value Reference Range Interpretation Comments Triglycerides Level (test code = 2571-8) 120 0-149 [facility]sterum or plasma cholesterol measurement (mass/volume)2020-01-28 04:30:00* Test Item Value Reference Range Interpretation Comments Cholesterol Level (test code = 2093-3) 77 0-199 Less than 200 mg/dL Low Bgyv153 - 239 mg/dL Borderline Ozjb048 m g/dl and greater High Risk [facility]sterum or plasma cholesterol in LDL measurement (mass/volume) 2020-01-28 04:30:00* Test Item Value Reference Range Interpretation Comments LDL Cholesterol (test code = 2089-1) 36 60-130 [facility]sterum or plasma cholesterol in HDL measurement (mass/volume)2020-01-28 04:30:00* Test Item Value Reference Range Interpretation Comments HDL Cholesterol (test code = 2085-9) 17 40-60 [facility]sterum or plasma total cholesterol/cholesterol in HDL mass wxacz0953-01-82 04:30:00* Test Item Value Reference Range Interpretation Comments Cholesterol/HDL Ratio (test code = 9830-1) 4.5 3.0-3.6 [facility] HospitalFluoroscopic procedure less than one hour jltojfba9834-93-91 04:30:00* Test Item Value Reference Range Interpretation Comments Hemoglobin A1c Percent (test code = Hemoglobin A1c Percent) 6.6 4.0-7.0 [facility] plasma triglyceride measurement (mass/volume)2020-01-28 04:30:00* Test Item Value Reference Range Interpretation Comments Triglycerides Level (test code = 2571-8) 120 0-149 [facility] plasma cholesterol measurement (mass/volume)2020-01-28 04:30:00* Test Item Value Reference Range Interpretation Comments Cholesterol Level (test code = 2093-3) 77 0-199 Less than 200 mg/dL Low Wcnq212 - 239 mg/dL Borderline Smqw022 m g/dl and greater High Risk [facility] or plasma cholesterol in LDL measurement (mass/volume) 2020-01-28 04:30:00* Test Item Value Reference Range Interpretation Comments LDL Cholesterol (test code = 2089-1) 36 60-130 [facility] plasma cholesterol in HDL measurement (mass/volume)2020-01-28 04:30:00* Test Item Value Reference Range Interpretation Comments HDL Cholesterol (test code = 2085-9) 17 40-60 [facility] or plasma total cholesterol/cholesterol in HDL mass zgrae4751-19-67 04:30:00* Test Item Value Reference Range Interpretation Comments Cholesterol/HDL Ratio (test code = 9830-1) 4.5 3.0-3.6 [facility] less than one hour hwrspble5740-49-59 04:30:00* Test Item Value Reference Range Interpretation Comments Hemoglobin A1c Percent (test code = Hemoglobin A1c Percent) 6.6 4.0-7.0 [facility] plasma triglyceride measurement (mass/volume)2020-01-28 04:30:00* Test Item Value Reference Range Interpretation Comments Triglycerides Level (test code = 2571-8) 120 0-149 [facility] or plasma cholesterol measurement (mass/volume)2020-01-28 04:30:00* Test Item Value Reference Range Interpretation Comments Cholesterol Level (test code = 2093-3) 77 0-199 Less than 200 mg/dL Low Gqfn453 - 239 mg/dL Borderline Hjga241 m g/dl and greater High Risk [facility] or plasma cholesterol in LDL measurement (mass/volume) 2020-01-28 04:30:00* Test Item Value Reference Range Interpretation Comments LDL Cholesterol (test code = 2089-1) 36 60-130 [facility] or plasma cholesterol in HDL measurement (mass/volume)2020-01-28 04:30:00* Test Item Value Reference Range Interpretation Comments HDL Cholesterol (test code = 2085-9) 17 40-60 [facility] or plasma total cholesterol/cholesterol in HDL mass pyymx9907-24-31 04:30:00* Test Item Value Reference Range Interpretation Comments Cholesterol/HDL Ratio (test code = 9830-1) 4.5 3.0-3.6 [facility]PELVIS NZ1249-17-88 16:33:00 [facility] [address] [address] Patient Name: TAY HERNANDEZ MR #: [id number] : 1950 Age/Sex: 69/F Req #: [id number] Adm Physician: CHAYO ZAYAS MD Ordered by: ADAM HERCULES MD Report #: [id number] Location: [facility] Room/Bed: [address] [place] [address] Procedure: [id number] CT/CT ABDOMEN/PE LVIS WO Exam Date: 01/27/20 Exam Time: 1626 REPORT STATUS: Signed EXAM: CT Abdomen a nd Pelvis WITHOUT intravenous contrast INDICATION: Localized infraumb ilical tenderness [id number]. COMPARISON: None. TECHNIQUE: Abdomen and pelvis were scanned utilizing a multidetector helical scanner from the lung base to the pubic symphysis without administration of IV contrast. Coronal and sagittal reformations were obtained. Routine technique was perform ed. IV CONTRAST: None ORAL CONTRAST: None COMPLICA TIONS: None RADIATION DOSE: Total DLP: 674 mGy*cm Dose modulation, ite rative reconstruction, and/or weight based adjustment of the mA/kV was utilize d to reduce the radiation dose to as low as reasonably achievable. FINDI NGS: LOWER THORAX: Normal. HEPATOBILIARY: No focal hepatic lesions. No b iliary ductal dilatation. The gallbladder is distended measuring up to 8.9 x 4 .7 cm. No calcified gallstones are identified. SPLEEN: No splenomegaly . Trace perisplenic free fluid is noted, nonspecific. PANCREAS: No focal ma sses or ductal dilatation. ADRENALS: No adrenal nodules. KIDNEYS/URETERS: Bilateral atrophic kidneys are noted with indeterminate hypodense lesion noah ing from the interpolar region of the right kidney, likely related to a cyst. PELVIC ORGANS/BLADDER: Urinary bladder is decompressed. Uterus is surgically absent. Left ovarian hypodense lesion is noted measuring up to 3.4 x 3.4 cm w ith internal fluid density. PERITONEUM / RETROPERITONEUM: Negative for pneu moperitoneum. Trace responded free fluid is noted.. Stable dialysis catheter i s noted entering the left lower quadrant tip terminating in the midline pelvis . LYMPH NODES: No lymphadenopathy. VESSELS: Right common femoral central shanna ous catheter is noted with tip terminating within the mid right external iliac vein. Small amount of air is noted within the vein, likely related to recent instrumentation or injection. GI TRACT: Limited due to lack of oral contras t. Stomach and portions of the colon are decompressed. No surrounding inflamma tory changes are noted. Normal appendix is noted. Negative for obstruction. BONES AND SOFT TISSUES: Negative for acute osseous abnormality. Mild to mod erate multilevel degenerative changes of the spine are noted including posteri or partially calcified disc bulges and disc space narrowing. Scattered facet a rthropathy is also noted. No suspicious lytic or blastic lesion is noted. IMPRESSION: 1. Mild gallbladder distention without calcified gallstone. C orrelate with physical exam and lab values and consider follow-up ultrasound i f clinically indicated. 2. Hypodense cystic left adnexal/ovarian lesion deon uring up to 3.4 cm. Recommend nonemergent follow-up ultrasound further evaluat ion. Signed by: Dylan Reyes MD on 01/27/2020 4:40 PM Dictated By: RAKEL REYES MD 1640 Tra nscribed By: CARROLL on 01/27/20 1640 COPY TO: ADAM HERCULES MD Fluoroscopic procedure less than one hour hpqbdjkq3511-58-71 14:00:00* Test Item Value Reference Range Interpretation Comments Lactic Acid Level (test code = Lactic Acid Level) 1.4 0.5- 2.0 [facility] HospitalFluoroscopic procedure less than one hour iffgxehx0297-47-26 13:45:00* Test Item Value Reference Range Interpretation Comments Coronavirus (PCR) (test code = Coronavirus (PCR)) NOT DETECTED NOTD ETECTED SARS-COV2/RT-PCR CEPHEIDResults are for the detection of SARS-COV-2 RNA. The NAT S-COV-2 RNA is generally detectable in nasopharyngeal swab specimens during the acute phase of infection. Positive results are indicitive of active infection wi SARS-COV-2; clinical correlation with patient history and other diagnostic in formation is necessary to determine patient infection status. Positive results d o not rule out bacterial infection or co-infection with other viruses. The agent detected may not be the definite cause of the disease.The limit of detection for this assay is 250 copies/mLThe SARS-CoV-2 test is a rapid, real-time RT-PCR test intended for the qualitative detection of nucleic acid from SARS-CoV-2 in handy opharyngeal swab specimen collected from individuals suspected of COVID-19 by [facility] healthcare provider. This test has not been Food and Drug Administration (FD A) cleared or approved and has been authorized by FDA under an Emergency Use Aut horization (EUA). This EUA will be effective until the declaration that circumst ances exist justifying the authorization of the emergency use of in vitro diagno stic test for detection and or diagnosis of COVID-19 is terminated under section 564(b) of the Act, or the the EUA is revoked under 564(g) of the ACT.[facility] SINGLE (PORTABLE)2020-01-27 12:22:00 [facility] [address] [address] Patient Name: TAY HERNANDEZ MR #: [id number] : 1950 Age/Sex: 69/F Req #: [id number] Adm Physician: Ordered by: DINA ALDANA DO Report #: [id number] Location: ER Room/Bed: Procedure: [id number] DX/CHEST SINGLE (PORTABLE) Exam Date: 01/27/20 Exam Time: 1130 REPORT STATUS: Signed TECHNIQUE: Fro ntal view of the chest. INDICATION: ERMD ORDER [id number] 1130 Y COMPARISON: None DISCUSSION: Limited evaluation due to portable te chnique. Lines and hardware: Multiple overlying EKG leads are noted Heart and mediastinum: Cardiomediastinal silhouette is mildly enlarged. Mild central vascular congestion is noted. Trachea projects midline. Thoracic aorta is to rtuous with calcifications of the aortic knob. Lungs and pleura: Low lung volu mes. Negative for focal consolidation, large effusion or pneumothorax. Soft tissues and bones: No acute abnormality. IMPRESSION: 1. Negative for a cute intrathoracic process. 2. Cardiomegaly. Signed by: Dylan hamilton MD on 01/27/2020 12:23 PM Dictated By: DYLAN REYES MD Electronical ly Signed By: DYLAN REYES MD on 01/27/20 1223 Transcribed By: ACRROLL on 01/13 09/01 1223 COPY TO: KATYADINA Arterial blood pH measurement 2020-01-27 11:47:00* Test Item Value Reference Range Interpretation Comments Arterial Blood pH (test code = 2744-1) 7.48 7.35-7.45 [facility]pCO2 OocN2042-51-47 11:47:00* Test Item Value Reference Range Interpretation Comments Arterial Blood Partial Pressure CO2 (test code = 2018-12) 26 35-45 [facility] VdoM1386-16-32 11:47:00* Test Item Value Reference Range Interpretation Comments Arterial Blood Partial Pressure O2 (test code = 2018-12) 202 80-105 [facility] HospitalAr[facility]ial blood bicarbonate measurement (moles/volume)2020-01-27 11:47:00* Test Item Value Reference Range Interpretation Comments Arterial Blood HCO3 (test code = 1960-4) 19 22-26 [facility] HospitalAr[facility]ial cord blood carbon dioxide, total measurement by calculation (moles/volume)2020-01-27 11:47:00* Test Item Value Reference Range Interpretation Comments Arterial Blood Total CO2 (test code = 66963-2) 20 [facility] HospitalAr[facility] blood base excess by calculation 2020-01-27 11:47:00* Test Item Value Reference Range Interpretation Comments Arterial Blood Base Excess (test code = 1925-7) -4.0 -2-3 [facility] HospitalArterial blood oxygen saturation ngoawmtwrzp3632-62-93 11:47:00* Test Item Value Reference Range Interpretation Comments Arterial Blood Oxygen Saturation (test code = 2708-6) 100.0 95-98 [facility] HospitalFluoroscopic procedure less than one hour wbmvupnp3799-04-96 11:47:00* Test Item Value Reference Range Interpretation Comments FiO2 (test code = FiO2) 32 LAUREL FROM RIGHT BRACHIAL PT ON 3L NC [facility] Arterial blood pH uicmcqpqieo3512-47-96 11:47:00* Test Item Value Reference Range Interpretation Comments Arterial Blood pH (test code = 2744-1) 7.48 7.35-7.45 [facility]pCO2 KwnY5303-25-33 11:47:00* Test Item Value Reference Range Interpretation Comments Arterial Blood Partial Pressure CO2 (test code = 2018-) 26 35-45 [facility] HpcN2027-76-68 11:47:00* Test Item Value Reference Range Interpretation Comments Arterial Blood Partial Pressure O2 (test code = 2018-) 202 80-105 [facility] HospitalArterial blood bicarbonate measurement (moles/volume)2020-01-27 11:47:00* Test Item Value Reference Range Interpretation Comments Arterial Blood HCO3 (test code = 1960-4) 19 22-26 [facility] HospitalArterial cord blood carbon dioxide, total measurement by calculation (moles/volume)2020-01-27 11:47:00* Test Item Value Reference Range Interpretation Comments Arterial Blood Total CO2 (test code = 20069-9) 20 [facility] HospitalAr[facility]ial blood base excess by calculation 2020-01-27 11:47:00* Test Item Value Reference Range Interpretation Comments Arterial Blood Base Excess (test code = 1925-7) -4.0 -2-3 [facility] HospitalArterial blood oxygen saturation yeuiexvtbzl8019-66-84 11:47:00* Test Item Value Reference Range Interpretation Comments Arterial Blood Oxygen Saturation (test code = 2708-6) 100.0 95-98 [facility] HospitalFluoroscopic procedure less than one hour mnphjpxu8443-97-04 11:47:00* Test Item Value Reference Range Interpretation Comments FiO2 (test code = FiO2) 32 LAUREL FROM RIGHT BRACHIAL PT ON 3L NC [facility] Arterial blood pH sbssyogtkgw8068-32-24 11:47:00* Test Item Value Reference Range Interpretation Comments Arterial Blood pH (test code = 2744-1) 7.48 7.35-7.45 [facility] VrcD0311-64-93 11:47:00* Test Item Value Reference Range Interpretation Comments Arterial Blood Partial Pressure CO2 (test code = 2018-) 26 35-45 [facility] [id number] 11:47:00* Test Item Value Reference Range Interpretation Comments Arterial Blood Partial Pressure O2 (test code = 2019-) 202 80-105 [facility] HospitalArterial blood bicarbonate measurement (moles/volume)2020-01-27 11:47:00* Test Item Value Reference Range Interpretation Comments Arterial Blood HCO3 (test code = 1960-4) 19 22-26 [facility] HospitalArterial cord blood carbon dioxide, total measurement by calculation (moles/volume)2020-01-27 11:47:00* Test Item Value Reference Range Interpretation Comments Arterial Blood Total CO2 (test code = 87184-9) 20 [facility] HospitalArterial blood base excess by calculation 2020-01-27 11:47:00* Test Item Value Reference Range Interpretation Comments Arterial Blood Base Excess (test code = 1925-7) -4.0 -2-3 [facility] HospitalArterial blood oxygen saturation hmnmzmfmnez4319-19-19 11:47:00* Test Item Value Reference Range Interpretation Comments Arterial Blood Oxygen Saturation (test code = 2708-6) 100.0 95-98 [facility] HospitalFluoroscopic procedure less than one hour uvpxkigy5965-82-80 11:47:00* Test Item Value Reference Range Interpretation Comments FiO2 (test code = FiO2) 32 LAUREL FROM RIGHT BRACHIAL PT ON 3L NC [facility] Blood xgwthtf6224-60-33 11:37:00* Test Item Value Reference Range Interpretation Comments Blood Culture (test code = 00851957) NO GROWTH AFTER 72 HOURS [facility] HospitalProthrombin time (PT) in platelet poor plasma by coagulation ocxqk4366-84-38 11:27:00* Test Item Value Reference Range Interpretation Comments Prothrombin Time (test code = 5902-2) 16.9 11.9-14.5 [facility] HospitalINR in Platelet poor plasma by Coagulation ucyet3694-69-01 11:27:00* Test Item Value Reference Range Interpretation Comments Prothromb Time International Ratio (test code = 6301-6) 1.31 Oral Anticoagulant Therapy INR Values:1. Low Intensity Therapy 1.5 - 2.02 . Moderate Intensity Therapy 2.0 - 3.03. High Intensity Therapy(1) 2.5 - 3. 54. High Intensity Therapy(2) 3.0 - 4.05. Panic Value INR > 5.0 [facility]2020-09-14 11:27:00* Test Item Value Reference Range Interpretation Comments B-Type Natriuretic Peptide (test code = 90238-9) 217.7 0-100 [facility] plasma lipase measurement (enzymatic activity/volume)2020-01-27 11:27:00* Test Item Value Reference Range Interpretation Comments Lipase (test code = 3040-3) 116 8-78 [facility]2020-09-14 11:27:00* Test Item Value Reference Range Interpretation Comments B-Type Natriuretic Peptide (test code = 09139-8) 217.7 0-100 [facility] or plasma lipase measurement (enzymatic activity/volume)2020-01-27 11:27:00* Test Item Value Reference Range Interpretation Comments Lipase (test code = 3040-3) 116 8-78 [facility]2020-09-14 11:27:00* Test Item Value Reference Range Interpretation Comments B-Type Natriuretic Peptide (test code = 82190-2) 217.7 0-100 [facility] or plasma lipase measurement (enzymatic activity/volume)2020-01-27 11:27:00* Test Item Value Reference Range Interpretation Comments Lipase (test code = 3040-3) 116 8-78 [facility] HospitalBASIC METABOLIC [id number] 15:25:00 * Test Item Value Reference Range Interpretation Comments [...] code = CA) 6.6 mg/dL 8.5-10.1 L IYHWTTTY-X4993-76-17 15:25:00* Test Item Value Reference Range Interpretation Comments TROPONIN-I (test code = TROPI) 0.025 ng/mL 0-0.045 N HEPATIC FUNCTION HYSPF3025-31-06 15:25:00* Test Item Value Reference Range Interpretation [...] reference range due to change in reagent. [id number] 15:25:00* Test Item Value Reference Range Interpretation Comments LIPASE (test code = LIP) 252 U/L 73.0-393.0 N BASIC METABOLIC [id number] 15:18:00* Test Item Value Reference Range Interpretation [...] CALCIUM (test code = CA) mg/dL 8.5-10.1 RCBJKHRQ-K7119-60-17 15:18:00* Test Item Value Reference Range Interpretation Comments TROPONIN-I (test code = TROPI) ng/mL 0-0.045 PROTHROMBIN YYAR5935-19-03 15:18:00* Test Item Value Reference Range Interpretation [...] (2.5-3.5) IS PATIENT ON ANTICOAGULANTS? NTHROMBOPLASTIN TIME QFAFBVN7984-65-99 15:18:00* Test Item Value Reference Range Interpretation Comments THROMBOPLASTIN TIME PARTIAL (test code = PTT) 26.6 seconds 23.0-37. 0 N IS PATIENT ON ANTICOAGULANTS? NCBC W/O [id number] 15:11:00* Test Item Value Reference Range Interpretation [...] MPV) 8.9 fL 6.7-11.0 N CBC W/O [id number] 15:10:00* Test Item Value Reference Range Interpretation [...] MPV) fL 6.7-11.0 - XR CHEST 1 [id number] 14:46:00 FAX: Grady Richey NP [phone] [place]: St: REG Name: TAY CORMIER [facility] : [birth year] Age/S: 69/F [address] Unit #: [id number] Loc: [place], [place] [address] Phys: Grady Richey NP Acct: [id number] Dis Date: Status: REG ER PHONE #: [phone] Exam Date: 12/30/2019 1431 FAX #: [phone] Reason: CHEST PAIN EXAMS: CPT CODE: [id number] XR CHEST 1 V [id number] REASON FOR EXAM: CHEST PAIN Exam Order [...] unchanged. IMPRESSION: No acute cardiopulmonary process. Location: [facility] Enma ctronically Signed by Scar Velazquez M.D. on 12/30/2019 at 9626 Reported and signed by: Scar Velazquez M.D. CC: Grady Richey NP Technologist: Tami Madrigal RT(R) Trnscrd Date/Time/By: 12/30/2019 (0915) : By: EbenezerDKH1 Orig Print D/T: S: 12/30/2019 (4979) PAGE 1 Signed Report Hepatitis B surface Ab, thdveupgrnxw2903-08-18 12:43:52* Test Item Value Reference Range Interpretation [...] refer to MMWR May 06, 2005/Vol. 54(No. 16);06-06, and for healthcare workers refer to MMWR May 03, 2013/Vol. 62(No. 10);-.Reference Interval: anti-HBs 9.99 IU/L or less ....... Uyddtzwh23.00 IU/L or greater .... PositiveResults greater than 1,000.00 IU/L are reported as greater than 1,000.00 IU/L. This assay should not be used for blood donor screening, associated re-entry protocols, or for screening Human Cell, Tissues and Cellular and Tissue-Based Products (HCT/P).Performed by [employer],[address] [place] [id number] yxa.[facility], Mikael Matias MD, Lab. Director [facility] 12 vmyi7118-73-54 15:35:20* Test Item Value Reference Range Interpretation Comments Ventricular rate (test code = 253) 101 Atrial rate (test code = 255) 101 IN interval (test code = 266) 166 QRSD [...] abnormality-No previous ECGs available- 3:3 5:19 PM [facility] MethodistPO prratae0959-37-57 11:09:07* Test Item Value Reference Range Interpretation Comments POC glucose (test code = 94909-8) 207 mg/dL 65-100 [employer] Name: Sue Sotomayor ID: [id number] Lab Interpretation (test code = 54621-8) Abnormal [facility]Basic metabolic nckfm7913-97-31 06:45:03* Test Item Value Reference Range Interpretation Comments Sodium (test code = 2951-2) 135 135- 150 mEq/L Potassium (test code = 2823-3) 3.6 3.5- 5.0 mEq/L Chloride (test code = 2075-0) 93 98- 112 mEq/L L CO2 (test code = 2027-9) 25 mmol/L 24-31 Anion gap (test code = 81476-5) 17@ANIO 7- 15 mEq/L H BUN (test code = 3094-0) 36 mg/dL 7-18 H Creatinine (test code = 2160-0) 6.40 mg/dL 0.5-0.9 H Glucose (test code = 2345-7) 217 mg/dL 65-100 H Calcium (test code = 35256-3) 7.6 mg/dL 8.8-10.2 L Lab Interpretation (test code = 09093-8) Abnormal [facility] MethodistEstimated [id number] 06:45:02* Test Item Value Reference Range Interpretation Comments Estimated GFR (test code = 5488) 6 mL/min/1.73 m2 A Catergory Units InterpretationG1 >=90 Normal or highG2 60-89 Mildly vbwanzexcT7x 45-59 Mildly to moderately agrnkfldkZ0i 30-44 Moderately to severely decreasedG4 15-29 Severely decreasedG5 <15 Kidney failureThe eGFR was calculated using the Chronic Kidney Disease Epidemiology Collaboration (CKD-EPI) equation. Interpretation is based on recommendations of the National Kidney Foundation-Kidney Disease Outcomes Quality Initiative (NKF-KDOQI) published in 2014. Lab Interpretation (test code = 96484-1) Abnormal [facility] with platelet and yitfblisdrry2623-37-27 06:27:02* Test Item Value Reference Range Interpretation Comments WBC (test code = 78259-1) 7.1 4.2- 11.0 k/uL RBC (test code = 84214-3) 3.04 m/uL 4.04-5.86 L HGB (test code = 718-7) 9.1 g/dL 11.5-15.3 L HCT (test code = 4544-3) 28.3 % 34-45 L MCV (test code = 787-2) 93.1 fL 80-98 MCH (test code = 785-6) 29.9 pg 27-34 MCHC (test code = 786-4) 32.2 g/dL 31.5-36.5 RDW - SD (test code = 35319-8) 48.3 fL 37-51 MPV (test code = 88553-5) 8.2 fL 7.4-10.4 Platelet count (test code = 07020-7) 376 150- 400 k/uL Nucleated RBC (test code = 10343-1) 0.00 /100 WBC Neutrophils (test code = 61274-2) 64.6 % 36-66 Lymphocytes (test code = 13202-4) 23.6 % 24-44 L Monocytes (test code = 39979-4) 6.6 % 0-6 H Eosinophils (test code = 63561-8) 3.9 % 0-6 Basophils (test code = 90456-5) 1.0 % 0-1.2 Immature granulocytes (test code = 96509-0) 0.3 % 0-1 Lab Interpretation (test code = 33419-8) Abnormal [place] ParkTaxhtbmncHhmfslur4081-24-13 02:53:12* Test Item Value Reference Range Interpretation Comments Troponin (test code = 19487-5) 0.020 ng/mL 0-0.04 In patients suspected of [...] OR decreased by less than 0.020 ng/mL [facility]Hepatitis [facility] surface ldyqjfu2830-42-96 23:54:28* Test Item Value Reference Range Interpretation Comments Hepatitis B surface Ag (test code = 5195-3) Non-reactive Non-reacti ve [facility] MethodistB natriuretic qmoqdqe0050-65-29 21:26:12* Test Item Value Reference Range Interpretation Comments BNP (test code = 06767-3) 97 pg/mL 0-100 [facility]Comprehensive metabolic uonnq9158-55-06 21:17:33* Test Item Value Reference Range Interpretation Comments Sodium (test code = 2951-2) 135 135- 150 mEq/L Potassium (test code = 2823-3) 3.2 3.5- 5.0 mEq/L L Chloride (test code = 2075-0) 92 98- 112 mEq/L L CO2 (test code = 8-9) 24 mmol/L 24-31 Anion gap (test code = 26690-9) 19@ANIO 7- 15 mEq/L H BUN (test code = 3094-0) 37 mg/dL 7-18 H Creatinine (test code = 2160-0) 6.60 mg/dL 0.5-0.9 H Glucose (test code = 2345-7) 95 mg/dL 65-100 Calcium (test code = 23709-3) 7.6 mg/dL 8.8-10.2 L Protein (test code [...] mg/dL 0.2-1.2 Lab Interpretation (test code = 83895-9) Abnormal [facility] MethodistLipid qsuod8495-16-65 21:17:32* Test Item Value Reference Range Interpretation Comments Cholesterol (test code = 2093-3) 80 mg/dL 0-199 Triglycerides (test code = 2571-8) 87 mg/dL 0-149 HDL cholesterol (test code = 2085-9) 26 mg/dL 40-9999 L LDL cholesterol (test code = 2089-1) 41 mg/dL 0-99 Result obtained by direct LDL measurement Lipid panel interpretation (test code = 84266-6) See below Total Cholesterol (mg/dL) LDL Cholesterol [...] (>=200 mg/dL) Lab Interpretation (test code = 21770-2) Abnormal [facility] MethodistProthrombin time with MTR9527-51-17 21:11:19* Test Item Value Reference Range Interpretation Comments Prothrombin time (test code = 5902-2) 14.8 11.5- 14.5 sec H INR (test code = 88470-3) 1.16 Fo r patients on anticoagulant therapy, reference ranges below:Indication: INR ValueTreatment of Venous Thrombosis, 2.0-3.0pulmonary emboli, or prophylaxisof a venous thrombosis, or systemic emboli.High dose, high risk patients 3.0-4.5with mechanical valves.NOTE: INR values over 3.0 are sometimes associated withgastrointestinal hemorrhage, especially values over 4.0. Lab Interpretation (test code = 18622-5) [facility] Vqxmlmlw1954-85-74 20:54:39Hm Interface, Radiology Results 08/28/2019 8:57 PM CDTEXAM: CT HEAD WO [...] intracranial abn ormality. Chronic findings as detailed above.[facility]-[id number] BASIC METABOLIC [id number] 12:14:00* Test Item Value Reference Range Interpretation Comments SODIUM (test code = NA) 123 mmol/L 128-145 LL Resu lts called to DR.MATTINGLYby SOTOEG 08/28/19 1214Critical results verified and read back [...] code = CA) 7.8 mg/dL 8.0-10.5 L [id number]-[id number] 12:14:00* Test Item Value Reference Range Interpretation Comments TROPONIN-I (test code = TROPI) <0.015 ng/mL 0.00-0.056 N CBC W/O [id number] 11:51:00* Test Item Value Reference Range Interpretation [...] = MPV) 8.4 fL 6.7-11.0 N Urea Nitrogen/Bgztnmapwn3423-72-10 07:25:00* Test Item Value Reference Range Interpretation Comments Urea Nitrogen (test code = 15793961) 54.0 mg/dL 7-25 H Creatinine (test code = 49985676) 5.1 mg/dL 0.6-1.2 H GFR, Estimated (test code = 98016074) 8 >=90 mL/min/1.73 m2 L Lab Interpretation (test code = 24982-8) [facility] Zuccbga7723-00-11 07:25:00* Test Item Value Reference Range Interpretation Comments Glucose, Fasting (test code = 48396316) 336 mg/dL 74-106 H Reference Range: Two or more of the venous plasma concentrations must be met or exceeded for a positive diagnosis. Non- Fasting 105 mg/dL 95 mg/dL 1 hr 190 mg/dL 180 mg/dL 2 hr 165 mg/dL 155 mg/dL 3 hr 145 mg/dL 140 mg/dL Lab Interpretation (test code = 68689-4) [facility]normal [facility] Hospital[facility]id [id number] 07:25:00* Test Item Value Reference Range Interpretation Comments Cholesterol (test code = 2093-3) 123.0 mg/dL <=200.0 Triglyceride (test code = 70312224) 186 mg/dL <150 H HDL (test code = 2085-9) 40.0 mg/dL See Reference Range Narrative . LDL (test code = 23967-4) 46 mg/dL <100 Op timal: < 100.0 mg/dLNear Optimal: 120-129 mg/dLBorderline: 130-159 mg/dLHigh: 160-189 mg/dLVery High: >=190 mg/dL Patient Fasting? (test code = 92935350) No SHAWN (test code = SHAWN) Patient is not fasting. For a triglyceride result greater than 440 mg/dL, consider re-testing when the patient is in a fasting state. Lab Interpretation (test code = 04701-4) [facility]normal [facility] HospitalLiver Kohiuab5469-22-45 07:25:00* Test Item Value Reference Range Interpretation Comments Bilirubin, Total (test code = 2885-2) 0.5 mg/dL 0.2-1.2 Alkaline Phosphatase (test code = 27642697) 281 U/L 34-104 H AST (test code = 46376432) 11 U/L 13-39 L Direct Bilirubin (test code = 1968-7) 0.1 mg/dL 0-0.2 ALT (test code = 73816557) 27 U/L 7-52 Albumin (test code = 94013-2) 3.1 g/dL 3.7-5.3 L Lab Interpretation (test code = 66057-7) [facility]normal [facility] HospitalYvntxlWdzrtovlqmfi7207-12-01 07:25:00* Test Item Value Reference Range Interpretation Comments Sodium (test code = 2951-2) 133 mmol/L 136-145 L Potassium (test code = 2823-3) 3.2 mmol/L 3.5-5.1 L Chloride (test code = 2075-0) 93 mmol/L 98-107 L CO2 (test code = 80970302) 25 mmol/L 21-31 Anion Gap (test code = 26140056) 15 mmol/L 5-16 Lab Interpretation (test code = 97249-8) Abnormal [facility] HospitalHemoglobin [id number] 19:37:00* Test Item Value Reference Range Interpretation Comments Hemoglobin A1c (test code = 4548-4) 10.4 % 4.3-6.1 H Estimated Average Glucose (test code = 66909687) 252 mg/dL 70-11 0 H Lab Interpretation (test code = 79788-8) [facility]normal [facility] HospitalCBC (without differential)2019-07-22 16:56:00* Test Item Value Reference [...] 33.8 g/dL 32-36 RDW (test code = 26051-5) 48.4 fL 36.4-46.3 H Platelet (test code = 777-3) 350 K/uL 150-400 Mean Platelet Volume (test code = 77417-2) 9.2 fL 9.4-12.4 L Percent NRBC (test code = 41382748) 0.0 % Lab Interpretation (test code = 75336-2) Abnormal [facility] HospitalURINALYSIS, MUTHIZDTLHU1502-67-63 13:32:00* Test Item Value Reference Range Interpretation Comments RBC (test code = 03454985) 11-21 0- 4 /HPF A WBC (test code = 68591658) 5-20 0- 5 /HPF A Mucous (test code = 47271604) Present None seen /HPF A Epithelial Cell (test code = 21230533) 1/HPF <1 /HPF A Bacteria (test code = 34509698) Moderate None seen /HPF A Granular Cast (test code = 37206303) 0-1 None seen /LPF Lab Interpretation (test code = 67267-2) Abnormal [facility] PmajlmTwtyxutvwt0667-26-27 13:23:00* Test Item Value Reference Range Interpretation Comments Color (test code = 84370895) Yellow Colorless, Straw, Yellow Clarity (test code = 95443248) Clear Clear Spec [place], Ur (test code = 5811-5) 1.025 1.005-1.035 pH, Ur (test code = 5803-2) 5.5 5.0-8.0 Protein, Ur (test code = 77033-1) 2+ Negative mg/dL A Glucose, Ur (test code = 83585-1) 1+ Negative A Ketone, Ur (test code = 2514-8) Negative Negative Bilirubin, Ur (test code = 5770-3) Negative Negative Nitrite, Ur (test code = 5802-4) Negative Negative Urobilinogen, Ur (test code = 81183-9) <1.0 <1.0 EU/dL Leukocyte (test code = 07893388) 1+ Negative A Blood, Ur (test code = 98019800) 1+ Negative A Lab Interpretation (test code = 54127-4) Abnormal [facility] FOOT KCTS2032-07-99 08:20:00Moises Jung MD 02/25/2019 11:27 AMDiabetic Foot Exam was performed at 02/25/2019 10:33 AM. Right foot sensation is normal, right foot pulses are normal, right foot appearance is normal. Left foot sensation is normal, left foot pulses are normal, left foot appearance is normal. [facility] METABOLIC PANEL 2018-09-16 03:54:00* Test Item Value [...] code = CA) 7.7 mg/dL 8.5-10.1 L [id number]-K6169-99-05 03:49:00* Test Item Value Reference Range Interpretation Comments TROPONIN-I (test code = TROPI) <0.015 ng/mL 0-0.045 N COMMENTS TO LOG RAFTER: COLLECT 3 HOURS AFTER PREVIOUS SAMPLECBC W/AUTO [id number] 03:43:00* Test Item Value Reference Range Interpretation [...] code = NRBC#) 0.00 K/mm3 0.0-0.1 N [id number]-L2553-81-04 23:03:00* Test Item Value Reference Range Interpretation Comments TROPONIN-I (test code = TROPI) <0.015 ng/mL 0-0.045 N COMMENTS TO LOG RAFTER: COLLECT 3 HOURS AFTER PREVIOUS EWCYPNTLOYLY9770-04-18 20:29:00* Test Item Value Reference Range Interpretation Comments GLUBED (test code = GLUBED) 146 mg/dL 74-106 H Performed by certified substation operator chief at [facility] - CT HEAD/BRAIN W/O [id number] 14:25:00 Name: TAY HERNANDEZ [facility] : 1950 Age/S: 68 / F [address] Unit #: [id number] Loc: [place] [address] Phys: CHU ZAPATA MD Acct: [id number] Dis Date: Status: ADM IN PHONE #: [phone] Exam Date: 09/15/2018 1347 FAX #: [phone] Reason: change in vision EXAMS: CPT CODE: [id number] CT HEAD/BRAIN W/O CONT 62673 EXAM: CT of the head without contrast; [...] changes and small left periventricular infarct. at 1425 Reported and signed by: Damian Lewis M.D. CC: CHU ZAPATA MD Technologist:Nano Reyes,RT(R),CT; Delores CTDI: DLP: Trnscb Date/Time: 09/15/2018 (1425) Marlene Orig Print D/T: S: 09/15/2018 (9591) CTDI: DLP: PAGE 1 Signed Report BASIC METABOLIC [id number] 13:46:00* Test Item Value Reference Range Interpretation [...] CA) 8.4 mg/dL 8.5-10.1 L HEPATIC FUNCTION [id number] 13:46:00* Test Item Value Reference Range Interpretation [...] reference range due to change in reagent. PRLRBLKUZ7919-80-43 13:46:00* Test Item Value Reference Range Interpretation Comments MAGNESIUM (test code = MAG) 2.2 mg/dL 1.8-2.4 N THYROID STIMULATING [id number] 13:46:00* Test Item Value Reference Range Interpretation Comments THYROID STIMULATING HORMONE (test code = TSH) 0.316 uIU/mL 0.36-3.7 4 L TSH REFERENCE RANGES: EUTHYROID: 0.35 - 4.3 mIU/mL HYPO : > 5.5 mIU/mL HYPER : < 0.35 mIU/mL [id number] 13:40:00* Test Item Value Reference Range Interpretation Comments TROPONIN-I (test code = TROPI) <0.015 ng/mL 0-0.045 N BASIC METABOLIC [id number] 13:34:00* Test Item Value Reference Range Interpretation [...] code = CA) mg/dL 8.5-10.1 HEPATIC FUNCTION [id number] 13:34:00* Test Item Value Reference Range Interpretation [...] TOTAL (test code = ALKP) IUnit/L 45-117 WFKVKHZWW5326-59-88 13:34:00* Test Item Value Reference Range Interpretation Comments MAGNESIUM (test code = MAG) mg/dL 1.8-2.4 THYROID STIMULATING [id number] 13:34:00* Test Item Value Reference Range Interpretation Comments THYROID STIMULATING HORMONE (test code = TSH) uIU/mL 0.36-3.7 4 BASIC METABOLIC [id number] 13:32:00* Test Item Value Reference Range Interpretation [...] code = CA) mg/dL 8.5-10.1 HEPATIC FUNCTION [id number] 13:32:00* Test Item Value Reference Range Interpretation [...] TOTAL (test code = ALKP) IUnit/L 45-117 [id number] 13:32:00* Test Item Value Reference Range Interpretation Comments MAGNESIUM (test code = MAG) mg/dL 1.8-2.4 THYROID STIMULATING [id number] 13:32:00* Test Item Value Reference Range Interpretation Comments THYROID STIMULATING HORMONE (test code = TSH) uIU/mL 0.36-3.7 4 PROTHROMBIN [id number] 13:17:00* Test Item Value Reference Range Interpretation [...] (2.5-3.5) IS PATIENT ON ANTICOAGULANTS? NTHROMBOPLASTIN TIME [id number] 13:17:00* Test Item Value Reference Range Interpretation Comments THROMBOPLASTIN TIME PARTIAL (test code = PTT) 30.3 seconds 25.0-36. 5 N IS PATIENT ON ANTICOAGULANTS? NCBC W/O [id number] 13:09:00* Test Item Value Reference Range Interpretation [...] fL 6.7-11.0 N - XR CHEST 1 [id number] 11:53:00 FAX: CHU ZAPATA MD [place]: B St: REG Name: Colten [facility] : [birth year] Age/S: 68/F [address] Voss y Unit #: [id number] Loc: [place] [address] Phys: CHU ZAPATA MD Acct: [id number] Dis Date: Status: REG ER PHONE #: [phone] Exam Date: 09/15/2018 1148 FAX #: [phone] Reason: CHEST PAIN EXAMS: CPT CODE: [id number] XR CHEST 1 V 88225 EXAM: Chest x-ray, one view; INFORMATION: Chest [...] Technologist: Joe Briseno RT(R) Trnscrd Date/Time/By: 09/15/2018 (0928) : By: EbenezerGRW Orig Print D/T: S: 09/15/2018 (8396) PAGE 1 Signed Report [id number] 16:07:00* Test Item Value Reference Range Interpretation Comments GLUBED (test code = GLUBED) 148 mg/dL 74-106 H Performed by certified substation operator chief at [facility] [id number] 08:13:00* Test Item Value Reference Range Interpretation Comments GLUBED (test code = GLUBED) 77 mg/dL 74-106 N Performed by certified substation operator chief at [facility] BASIC METABOLIC [id number] 07:00:00* Test Item Value Reference Range Interpretation [...] CA) 8.1 mg/dL 8.5-10.1 L BASIC METABOLIC [id number] 06:43:00* Test Item Value Reference Range Interpretation [...] code = CA) 8.1 mg/dL 8.5-10.1 L [id number] 21:12:00* Test Item Value Reference Range Interpretation Comments GLUBED (test code = GLUBED) 99 mg/dL 74-106 N Performed by certified substation operator chief at [facility] [id number] 16:02:00* Test Item Value Reference Range Interpretation Comments GLUBED (test code = GLUBED) 140 mg/dL 74-106 H Performed by certified substation operator chief at [facility] [id number] 13:23:00* Test Item Value Reference Range Interpretation Comments GLUBED (test code = GLUBED) 118 mg/dL 74-106 H Performed by certified substation operator chief at [facility] HEPATITIS B CORE ANTIBODY,[id number] 09:16:00* Test Item Value Reference Range Interpretation Comments HEPATITIS B CORE ANTIBODY,TOT (test code = HBCAB) NEGATIVE NEGA TIVE BASIC METABOLIC [id number] 09:06:00* Test Item Value Reference Range Interpretation [...] CA) 7.8 mg/dL 8.5-10.1 L CBC W/AUTO [id number] 08:43:00* Test Item Value Reference Range Interpretation [...] DIFF REQUIRED (test code = MDIFF) NO [id number] 07:59:00* Test Item Value Reference Range Interpretation Comments GLUBED (test code = GLUBED) 83 mg/dL 74-106 N Performed by certified substation operator chief at [facility] YKMJWM8935-18-31 20:50:00* Test Item Value Reference Range Interpretation Comments GLUBED (test code = GLUBED) 143 mg/dL 74-106 H Performed by certified substation operator chief at [facility] [id number] 16:19:00* Test Item Value Reference Range Interpretation Comments GLUBED (test code = GLUBED) 110 mg/dL 74-106 H Performed by certified substation operator chief at [facility] [id number] 11:33:00* Test Item Value Reference Range Interpretation Comments GLUBED (test code = GLUBED) 253 mg/dL 74-106 H Performed by certified substation operator chief at [facility] [id number] 07:49:00* Test Item Value Reference Range Interpretation Comments GLUBED (test code = GLUBED) 109 mg/dL 74-106 H Performed by certified substation operator chief at [facility] COMPREHENSIVE METABOLIC [id number] 07:25:00* Test Item Value Reference Range Interpretation [...] due to change in reagent. COMPREHENSIVE METABOLIC [id number] 07:22:00* Test Item Value Reference Range Interpretation [...] code = ALKP) IUnit/L 45-117 CBC W/AUTO [id number] 06:47:00* Test Item Value Reference Range Interpretation [...] DIFF REQUIRED (test code = MDIFF) NO [id number] 05:49:00* Test Item Value Reference Range Interpretation Comments GLUBED (test code = GLUBED) 81 mg/dL 74-106 N Performed by certified substation operator chief at [facility] [id number] 16:52:00* Test Item Value Reference Range Interpretation Comments GLUBED (test code = GLUBED) 113 mg/dL 74-106 H Performed by certified substation operator chief at [facility] [id number] 12:30:00* Test Item Value Reference Range Interpretation Comments GLUBED (test code = GLUBED) 219 mg/dL 74-106 H Performed by certified substation operator chief at [facility] ONTIWM1508-92-14 09:03:00* Test Item Value Reference Range Interpretation Comments GLUBED (test code = GLUBED) 236 mg/dL 74-106 H Performed by certified substation operator chief at [facility] [id number] 09:03:00* Test Item Value Reference Range Interpretation Comments GLUBED (test code = GLUBED) 58 mg/dL 74-106 L Performed by certified substation operator chief at [facility] [id number] 07:39:00* Test Item Value Reference Range Interpretation Comments GLUBED (test code = GLUBED) 50 mg/dL 74-106 L Performed by certified substation operator chief at [facility] BASIC METABOLIC [id number] 06:42:00* Test Item Value Reference Range Interpretation [...] CA) 8.3 mg/dL 8.5-10.1 L BASIC METABOLIC [id number] 05:51:00* Test Item Value Reference Range Interpretation [...] CALCIUM (test code = CA) mg/dL 8.5-10.1 [id number] 17:11:00* Test Item Value Reference Range Interpretation Comments GLUBED (test code = GLUBED) 214 mg/dL 74-106 H Performed by certified substation operator chief at [facility] [id number] 08:36:00* Test Item Value Reference Range Interpretation Comments GLUBED (test code = GLUBED) 151 mg/dL 74-106 H Performed by certified substation operator chief at [facility] BASIC METABOLIC [id number] 06:52:00* Test Item Value Reference Range Interpretation [...] 36 mg/dL 74-106 Re sults called to [id number] by [email or web address] 09/07/18 0650Critical results verified and read back [...] code = CA) 7.7 mg/dL 8.5-10.1 L [id number] 06:52:00* Test Item Value Reference Range Interpretation Comments PHOSPHORUS (test code = PHOS) 4.1 mg/dL 2.5-4.9 N [id number] 06:52:00* Test Item Value Reference Range Interpretation Comments MAGNESIUM (test code = MAG) 1.8 mg/dL 1.8-2.4 N BASIC METABOLIC [id number] 06:26:00* Test Item Value Reference Range Interpretation [...] CALCIUM (test code = CA) mg/dL 8.5-10.1 [id number] 06:26:00* Test Item Value Reference Range Interpretation Comments PHOSPHORUS (test code = PHOS) mg/dL 2.5-4.9 [id number] 06:26:00* Test Item Value Reference Range Interpretation Comments MAGNESIUM (test code = MAG) mg/dL 1.8-2.4 CBC W/O [id number] 06:10:00* Test Item Value Reference Range Interpretation [...] code = MPV) 9.8 fL 6.7-11.0 N [id number] 22:35:00* Test Item Value Reference Range Interpretation Comments GLUBED (test code = GLUBED) 77 mg/dL 74-106 N Performed by certified substation operator chief at [facility] [id number] 16:53:00* Test Item Value Reference Range Interpretation Comments GLUBED (test code = GLUBED) 127 mg/dL 74-106 H Performed by certified substation operator chief at [facility] [id number] 11:28:00* Test Item Value Reference Range Interpretation Comments GLUBED (test code = GLUBED) 87 mg/dL 74-106 N Performed by certified substation operator chief at [facility] [id number] 10:11:00* Test Item Value Reference Range Interpretation Comments GLUBED (test code = GLUBED) 140 mg/dL 74-106 H Performed by certified substation operator chief at [facility] [id number] 08:30:00* Test Item Value Reference Range Interpretation Comments GLUBED (test code = GLUBED) 35 mg/dL 74-106 LL Test performed as P.O.C. by nursing staff.[facility] by certified substation [facility]~ BASIC METABOLIC [id number] 07:20:00* Test Item Value Reference Range Interpretation [...] 39 mg/dL 74-106 Re sults called to [place] [address] by V.LAB.AG1 09/06/18 0720Critical results verified and [...] CA) 7.8 mg/dL 8.5-10.1 L BASIC METABOLIC [id number] 05:32:00* Test Item Value Reference Range Interpretation [...] = CA) mg/dL 8.5-10.1 AB HEPATITIS B [id number] 05:12:00* Test Item Value Reference Range Interpretation Comments AB HEPATITIS B SURFACE (test code = HBSAB) Non Reactive () Non Reactive: Inconsistent with immunity, less than 10 mIU/mL Reactive: Consistent with immunity, greater than 9.9 mIU/mL [id number] 20:49:00* Test Item Value Reference Range Interpretation Comments GLUBED (test code = GLUBED) 35 mg/dL 74-106 LL Test performed as P.O.C. by nursing staff.[facility]~ [id number] 16:17:00* Test Item Value Reference Range Interpretation Comments GLUBED (test code = GLUBED) 216 mg/dL 74-106 H Performed by certified substation operator chief at [facility] BASIC METABOLIC [id number] 08:09:00* Test Item Value Reference Range Interpretation [...] CA) 8.7 mg/dL 8.5-10.1 N BASIC METABOLIC [id number] 07:57:00* Test Item Value Reference Range Interpretation [...] code = CA) mg/dL 8.5-10.1 CBC W/O [id number] 07:39:00* Test Item Value Reference Range Interpretation [...] code = MPV) 10.5 fL 6.7-11.0 N [id number] 21:03:00* Test Item Value Reference Range Interpretation Comments GLUBED (test code = GLUBED) 167 mg/dL 74-106 H Performed by certified substation operator chief at [facility] [id number] 16:41:00* Test Item Value Reference Range Interpretation Comments GLUBED (test code = GLUBED) 202 mg/dL 74-106 H Performed by certified substation operator chief at [facility] [id number] 12:47:00* Test Item Value Reference Range Interpretation Comments GLUBED (test code = GLUBED) 97 mg/dL 74-106 N Performed by certified substation operator chief at [facility] [id number] 10:44:00* Test Item Value Reference Range Interpretation Comments GLUBED (test code = GLUBED) 92 mg/dL 74-106 N Performed by certified substation operator chief at [facility] - [place] GUIDANCE VAS [id number] 09:55:00 Name: TAY HERNANDEZ [facility] : 1950 Age/S: 68 / F [address] Unit #: [id number] Loc: [place] [address] Phys: Damian Lewis MD Acct: [id number] Dis Date: Status: ADM IN PHONE #: [phone] Exam Date: 08/31/2018 09 FAX #: [phone] Reason: EXAMS: CPT CODE: [id number] [place] [facility]UID[facility] ACCESS 76116 Fluoro Time: 18 DAP (Gy m2): 2231 [...] monitored by a trained registered nurse. Physician azer-eh-qivl sedation time was 15 minutes. Benefits and [...] rformed followed by insertion of a 15 British peel-away sheath. A sub cutaneous tunnel was then created in the usual sterile fashion and a 14.5 British tunneled hemodialysis catheter was inserted and positioned [...] Signed Report (DALI NUTRACY) Name: TAY HERNANDEZ [facility] : 1950 Age/S: 68 / F [address] Unit #: [id number] Loc: [place] [address] Phys: Damian Walton MD Acct: [id number] Dis Date: Status: ADM IN PHON E #: [phone] Exam Date: 08/31/2018 0935 FAX #: Reason: EXAMS: CPT CODE: [id number] GUIDAN CE VASC ACCESS 89244 Fluoro Time: 18 DAP (Gy m2): 2231 Air Kerma (mGy): 4.49 <Continued> at 0955 Reported and signed by: Damian Lewis M.D. CC: Jose Antonio Nelson MD; Dayo Valadez MD Technologist: Andrea Quick [facility] [place] Date/Time: 09/04/2018 (09) Marlene Orig Print D/T: S: 09/04/2018 (0958) PAGE 2 Signed Report - SP FLUORO GUID CTRL ACC [id number] 09:55:00 Name: TAY HERNANDEZ [facility] SP : 1950 Age/S: 68 / F [address] Unit #: [id number] Loc: [place] [address] Phys: Damian Lewis MD Acct: [id number] Dis Date: Status: ADM IN PHONE #: [phone] Exam Date: 08/31/2018 0935 FAX #: [phone] Reason: EXAMS: CPT CODE: [id number] SP FLUORO GUID CTRL ACC DEV 96088 Fluoro Time: DAP (Gy m2): Air Kerma (mGy): EXAM: Insertion of a tunneled hemodialysis catheter with sonographic and fluoroscopic guidance and conscious sedation; INFORMATION: End-stage renal disease; TECHNIQUE AND FINDINGS: Conscious sedation start time: 0910 hours; completion time: 0935 hours; Under physician supervision 1 mg of Versed and 25 mcg of fentanyl were administered intravenously for sedation. The patient's heart rate, blood pressure and pulse oximetry were continuously monitored by a trained registered nurse. Physician kkmo-fv-xddm sedation time was 15 minutes. Benefits and [...] rformed followed by insertion of a 15 British peel-away sheath. A sub cutaneous tunnel was then created in the usual sterile fashion and a 14.5 British tunneled hemodialysis catheter was inserted and positioned [...] Signed Report (DALI NUTRACY) Name: TAY HERNANDEZ [facility] : 1950 Age/S: 68 / F [address] Unit #: [id number] Loc: [place] [address] Phys: Damian Walton MD Acct: [id number] Dis Date: Status: ADM IN PHON E #: [phone] Exam Date: 08/31/2018 0935 FAX #: Reason: EXAMS: CPT CODE: [id number] SP FLUORO GUID CTRL ACC DEV 38998 Fluoro Time: DAP (Gy m2): Air Kerma (mGy): <Continued> at 0955 Reported and signed by: Damian Lewis M.D. CC: Jose Antonio Nelson MD; Dayo Valadez MD Technologist: Andrea Quick [facility] Date/Time: 09/04/2018 (954) Marlene Orig Print D/T: S: 09/04/2018 () PAGE 2 Signed Report GLUBED 2018-09-04 09:06:00* Test Item Value Reference Range Interpretation Comments GLUBED (test code = GLUBED) 74 mg/dL 74-106 N Performed by certified substation operator chief at [facility] BASIC METABOLIC [id number] 07:46:00* Test Item Value Reference Range Interpretation [...] mg/dL 74-106 LL Re sults called to [id number] by V.LAB.ARDEN 09/04/18 0746Critical results verified and read back [...] CA) 8.2 mg/dL 8.5-10.1 L BASIC METABOLIC [id number] 06:56:00* Test Item Value Reference Range Interpretation [...] CALCIUM (test code = CA) mg/dL 8.5-10.1 [id number] 00:14:00* Test Item Value Reference Range Interpretation Comments GLUBED (test code = GLUBED) 61 mg/dL 74-106 L Performed by certified substation operator chief at [facility] [id number] 17:17:00* Test Item Value Reference Range Interpretation Comments GLUBED (test code = GLUBED) 107 mg/dL 74-106 H Performed by certified substation operator chief at [facility] [id number] 12:08:00* Test Item Value Reference Range Interpretation Comments GLUBED (test code = GLUBED) 128 mg/dL 74-106 H Performed by certified substation operator chief at [facility] CBC W/AUTO [id number] 09:08:00* Test Item Value Reference Range Interpretation [...] (test code = MDIFF) NO BASIC METABOLIC [id number] 07:44:00* Test Item Value Reference Range Interpretation [...] = CA) 8.5 mg/dL 8.5-10.1 N CALCIUM [id number] 07:44:00* Test Item Value Reference Range Interpretation Comments CALCIUM IONIZED (test code = MAG) 1.16 mmol/L 1.12-1.32 N BASIC METABOLIC [id number] 07:26:00* Test Item Value Reference Range Interpretation [...] (test code = CA) mg/dL 8.5-10.1 CALCIUM [id number] 07:26:00* Test Item Value Reference Range Interpretation Comments CALCIUM IONIZED (test code = MAG) 1.16 mmol/L 1.12-1.32 N BASIC METABOLIC [id number] 07:14:00* Test Item Value Reference Range Interpretation [...] (test code = CA) mg/dL 8.5-10.1 CALCIUM [id number] 07:14:00* Test Item Value Reference Range Interpretation Comments CALCIUM IONIZED (test code = MAG) 1.16 mmol/L 1.12-1.32 N [id number] 21:07:00* Test Item Value Reference Range Interpretation Comments GLUBED (test code = GLUBED) 138 mg/dL 74-106 H Performed by certified substation operator chief at [facility] [id number] 16:51:00* Test Item Value Reference Range Interpretation Comments GLUBED (test code = GLUBED) 121 mg/dL 74-106 H Performed by certified substation operator chief at [facility] [id number] 12:18:00* Test Item Value Reference Range Interpretation Comments GLUBED (test code = GLUBED) 181 mg/dL 74-106 H Performed by certified substation operator chief at [facility] [id number] 08:21:00* Test Item Value Reference Range Interpretation Comments GLUBED (test code = GLUBED) 86 mg/dL 74-106 N Performed by certified substation operator chief at [facility] [id number] 06:19:00* Test Item Value Reference Range Interpretation Comments GLUBED (test code = GLUBED) 80 mg/dL 74-106 N Performed by certified substation operator chief at [facility] [id number] 20:43:00* Test Item Value Reference Range Interpretation Comments GLUBED (test code = GLUBED) 102 mg/dL 74-106 N Performed by certified substation operator chief at [facility] [id number] 20:43:00* Test Item Value Reference Range Interpretation Comments GLUBED (test code = GLUBED) 64 mg/dL 74-106 L Performed by certified substation operator chief at [facility] [id number] 15:23:00* Test Item Value Reference Range Interpretation Comments GLUBED (test code = GLUBED) 185 mg/dL 74-106 H Performed by certified substation operator chief at [facility] [id number] 15:05:00* Test Item Value Reference Range Interpretation Comments GLUBED (test code = GLUBED) 103 mg/dL 74-106 N Performed by certified substation operator chief at [facility] BASIC METABOLIC [id number] 05:42:00* Test Item Value Reference Range Interpretation [...] CA) 7.9 mg/dL 8.5-10.1 L CBC W/O [id number] 04:46:00* Test Item Value Reference Range Interpretation [...] code = MPV) 9.7 fL 6.7-11.0 N [id number] 20:26:00* Test Item Value Reference Range Interpretation Comments GLUBED (test code = GLUBED) 146 mg/dL 74-106 H Performed by certified substation operator chief at [facility] [id number] 17:56:00* Test Item Value Reference Range Interpretation Comments GLUBED (test code = GLUBED) 128 mg/dL 74-106 H Performed by certified substation operator chief at [facility] [id number] 12:40:00* Test Item Value Reference Range Interpretation Comments GLUBED (test code = GLUBED) 186 mg/dL 74-106 H Performed by certified substation operator chief at [facility] - XR CHEST 1 [id number] 10:06:00 FAX: Jose Antonio Stephens MD [phone] [place]: B St: [facility] FAX: Dayo Valadez MD [phone] Name: HERNANDEZTAY [facility] : 1950 Age/S: 68/F Delfina Riley Unit #: [id number] Loc: V.3031 [place] [address] Phys: Damian Lewis MD Acct: [id number] Dis Date: Status: ADM IN PHONE #: [phone] Exam Date: 08/31/2018 0947 FAX #: [phone] Reason: HD CATH EXAMS: CPT CODE: [id number] XR CHEST 1 V 13279 HISTORY: HD catheter placement. COMPARISON: September 15, 2017. Right jugular catheter with the tip projected over the SVC. No pneumothorax. Dependent changes. No acute infiltrates, effusion or congestion. Cardiomegaly. IMPRESSION: No pneumothorax after right jugular catheter placement with the tip projected over the SVC. at 1006 Reported and signed by: Lawson Castro M.D. CC: Jose Antonio Nelson MD; Dayo Valadez MD Technologist: Joe PERALTA(R) Trnscrd Date/Time/By: 08/31/2018 (1006) : By: [email or web address] Orig Print D/T: S: 0 08/31/2018 (1009) PAGE 1 Signed Re port [id number] 08:44:00* Test Item Value Reference Range Interpretation Comments GLUBED (test code = GLUBED) 105 mg/dL 74-106 N Performed by certified substation operator chief at [facility] BASIC METABOLIC [id number] 05:52:00* Test Item Value Reference Range Interpretation [...] code = CA) 8.4 mg/dL 8.5-10.1 L [id number] 05:52:00* Test Item Value Reference Range Interpretation Comments PHOSPHORUS (test code = PHOS) 4.4 mg/dL 2.5-4.9 N [id number] 05:52:00* Test Item Value Reference Range Interpretation Comments MAGNESIUM (test code = MAG) 2.1 mg/dL 1.8-2.4 N BASIC METABOLIC [id number] 05:50:00* Test Item Value Reference Range Interpretation [...] code = CA) 8.4 mg/dL 8.5-10.1 L [id number] 05:50:00* Test Item Value Reference Range Interpretation Comments PHOSPHORUS (test code = PHOS) mg/dL 2.5-4.9 [id number] 05:50:00* Test Item Value Reference Range Interpretation Comments MAGNESIUM (test code = MAG) mg/dL 1.8-2.4 CBC W/O [id number] 05:39:00* Test Item Value Reference Range Interpretation [...] code = MPV) 9.8 fL 6.7-11.0 N [id number] 00:30:00* Test Item Value Reference Range Interpretation Comments GLUBED (test code = GLUBED) 180 mg/dL 74-106 H Performed by certified substation operator chief at [facility] PROTHROMBIN [id number] 18:53:00* Test Item Value Reference Range Interpretation [...] (2.5-3.5) IS PATIENT ON ANTICOAGULANTS? NTHROMBOPLASTIN TIME [id number] 18:53:00* Test Item Value Reference Range Interpretation Comments THROMBOPLASTIN TIME PARTIAL (test code = PTT) 29.8 seconds 25.0-36. 5 N IS PATIENT ON ANTICOAGULANTS? [id number] 17:41:00* Test Item Value Reference Range Interpretation Comments GLUBED (test code = GLUBED) 103 mg/dL 74-106 N Performed by certified substation operator chief at [facility] [id number] 17:41:00* Test Item Value Reference Range Interpretation Comments GLUBED (test code = GLUBED) 132 mg/dL 74-106 H Performed by certified substation operator chief at [facility] AG HEPAT B [id number] 16:41:00* Test Item Value Reference Range Interpretation Comments AG HEPAT B SURF (test code = HBSAG) Nonreactive Index Nonreactive [id number] 08:57:00* Test Item Value Reference Range Interpretation Comments GLUBED (test code = GLUBED) 76 mg/dL 74-106 N Performed by certified substation operator chief at [facility] BASIC METABOLIC [id number] 06:09:00* Test Item Value Reference Range Interpretation [...] code = CA) 8.2 mg/dL 8.5-10.1 L [id number] 06:09:00* Test Item Value Reference Range Interpretation Comments PHOSPHORUS (test code = PHOS) 4.3 mg/dL 2.5-4.9 N [id number] 06:09:00* Test Item Value Reference Range Interpretation Comments MAGNESIUM (test code = MAG) 2.1 mg/dL 1.8-2.4 N CBC W/O [id number] 05:47:00* Test Item Value Reference Range Interpretation [...] code = MPV) 10.0 fL 6.7-11.0 N [id number] 23:10:00* Test Item Value Reference Range Interpretation Comments GLUBED (test code = GLUBED) 84 mg/dL 74-106 N Performed by certified substation operator chief at [facility] [id number] 22:13:00* Test Item Value Reference Range Interpretation Comments AMYLASE (test code = ALEC) 92 Unit/L 25-115 N SPECIMEN COMMENTS: add onSPECIMEN COMMENTS: add on [id number] 22:13:00* Test Item Value Reference Range Interpretation Comments LIPASE (test code = LIP) 355 U/L 73.0-393.0 N SPECIMEN COMMENTS: add onSPECIMEN COMMENTS: add on [id number] 21:50:00* Test Item Value Reference Range Interpretation Comments GLUBED (test code = GLUBED) 54 mg/dL 74-106 L Performed by certified substation operator chief at [facility] COMPREHENSIVE METABOLIC [id number] 19:18:00* Test Item Value Reference Range Interpretation [...] range due to change in reagent. PROTHROMBIN [id number] 17:45:00* Test Item Value Reference Range Interpretation [...] (2.5-3.5) IS PATIENT ON ANTICOAGULANTS? NCBC W/AUTO [id number] 17:27:00* Test Item Value Reference Range Interpretation [...] DIFF REQUIRED (test code = MDIFF) NO [id number] 17:14:00* Test Item Value Reference Range Interpretation Comments GLUBED (test code = GLUBED) 242 mg/dL 74-106 H Performed by certified substation operator chief at [facility] CHEM [id number] 10:17:0010[facility]annCHEM [id number] 10:17:008.5 [facility] HermannCHEM [id number] 10:17:0023[facility] HermannCHEM PANEL 2018-08-25 10:17:0014.0[facility]annCHEM [id number] 10:17:06201Iaftubpf HermannCHEM [id number] 10:17:0066[facility]annCHEM [id number] 10:17:004.0[facility]annCHEM [id number] 10:17:05007Jxvtiabk HermannCHEM [id number] 10:17:004.49[facility] HermannCHEM [id number] 10:17:99926 [facility] LifcnmaBWRFAGXJDRDQ8043-89-72 20:15:14990Pjacqmwl HermannELECTROLYTES 2018-08-24 20:15:008.3[facility] LldoyulJJHQGLRTRZBI8749-63-80 20:15:0012.0 [facility] HyuotpwUGSVISAMRXJJ7480-74-42 20:15:0023[facility] HermannELECTROLYTES 2018-08-24 20:15:009[facility] AxbpvfpWGDYJXIFDFKF9429-13-29 20:15:07756Xmomvlje TnqbsvzSIPKZBCMODOG0153-81-85 20:15:004.67[facility] SyxhainPFASKNTJJWXP5520-98-55 20:15:25895Tbfozoze VehklryNKXEHNDBPBEZ0587-52-52 20:15:0070[facility] YWRCMQQLLJIR7032-23-21 20:15:004.0[facility]annURINE AND ZHXGF5689-64-57 05:15:001[facility]ann[facility]INE AND QTVVH9375-18-44 05:15:001[facility] URINE AND [id number] 05:15:00Negative (08/24/18 12:15 AM)[facility] URINE AND [id number] 05:15:00Negative *NA*(08/24/18 12:15 AM)[facility] [id number] 05:15:00* Test Item Value Reference Range Interpretation Comments UA pH (test code = UA pH) 5.0 1 5.0-8.0 [facility] AND [id number] 05:15:00* Test Item Value Reference Range Interpretation Comments UA Spec Grav (test code = UA Spec Grav) 1.012 1 [facility] [id number] 05:15:00Negative (08/24/18 12:15 AM) [facility] [id number] 05:15:00Negative (08/24/18 12:15 AM) [facility] [id number] 05:15:00Negative *NA*(08/24/18 12:15 AM)[facility] [id number] 05:15:00Slight *ABN*(08/24/18 12:15 AM)[facility] AND [id number] 05:15:00Yellow *NA*(08/24/18 12:15 AM)[facility]annCHEM [id number] 03:22:05365Cebndgys HermannCHEM PANEL 2018-08-24 03:22:008[facility] HermannCHEM [id number] 03:22:000.5[facility]annCHEM HRGJI5691-51-85 03:22:0018[facility]annCHEM NEMLF1900-24-34 03:22:62673Elxorpxm HermannCHEM NQJKT9248-74-73 03:22:27642Lkejruez HermannCHEM WEMTP7015-38-65 03:22:0072[facility]annCHEM [id number] 03:22:004.1 [facility]annCHEM SRHON1710-47-68 03:22:67743Eaekkovj HermannCHEM PANEL 2018-08-24 03:22:005.01[facility] HermannCHEM [id number] 03:22:34933Hxorttgd HermannCHEM EUSMQ4434-89-20 03:22:0026[facility]annCHEM XUSWI5964-66-18 03:22:003.6[facility] HermannCHEM WEZVX6841-61-48 03:22:0022[facility] HermannCHEM KPCMJ0403-17-31 03:22:009.0[facility]annCHEM KGEUT2274-99-20 03:22:007.9 [facility]annCHEM OELQN2391-44-48 03:22:00* Test Item Value Reference Range Interpretation Comments B/C Ratio (test code = B/C Ratio) 14 1 6-25 [facility]annCHEM [id number] 03:22:0012.1[facility] HermannCHEM PANEL 2018-08-24 03:22:004.3[facility] HermannCHEM GUWNM1010-61-59 03:22:00* Test Item Value Reference Range Interpretation Comments A/G Ratio (test code = A/G Ratio) 0.8 1 0.7-1.6 [facility] UznrsalLKSXSPEYFF1457-93-96 03:22:008.2[facility] HermannHEMATOLOGY 2018-08-24 03:22:24972Ooefbkwf IczurnrFJBGUBDARM8265-50-35 03:22:0033.6[facility] ZojwwlaRKTVSDYKEY9881-85-54 03:22:00* Test Item Value Reference Range Interpretation Comments MCH (test code = MCH) 29.9 pg 27.0-31.0 [facility] LodfluyFOHWVJIMWO7373-86-53 03:22:0092.8[facility] HermannHEMATOLOGY 2018-08-24 03:22:0014.8[facility] AdpneuaOQBUJTOJIS1767-06-90 03:22:0032.2[facility] NyqqjqaENMKCEUCWX7702-69-77 03:22:0010.8[facility] OgnjuyvDLPKPIOQWX1513-77-29 03:22:003.63[facility] LueuldvOIZEGJCZNM5819-34-05 03:22:007.0[facility] WYFKFEECPF7629-72-42 03:22:000.5[facility] BkmswirHAPQLXTPIA4297-31-63 03:22:002.5 [facility] RnwhnrhRVYAVFTNFE3427-65-18 03:22:0084.0[facility] HermannHEMATOLOGY 2018-08-24 03:22:0012.0[facility] EirmjveGLWTJDCNCD9910-34-82 03:22:000.1[facility] BjbvshlWEAGITXYRK4635-93-56 03:22:000.2[facility] BoqzhihASHOGDHEKH5360-47-50 03:22:000.8[facility] KwhylztKCHPYYPLUJ2969-39-74 03:22:005.9[facility] GTFHABSDSU9370-22-49 03:22:001.0[facility] HermannU/S, ABDOMINAL, COMPLETE 2018 11:50:00Reason for Exam:->pre transplant evaluationFINAL REPORT INDICATION: 77-year-old female with chronic kidney disease. Evaluation before renal transplant. TECHNIQUE: Abdominal ultrasound complete. COMPARISON: None. FINDINGS:Abdominal aorta is unremarkable.Pancreas to the extent visualized is unremarkable.Visualized IVC unremarkable. Liver co ntour, size, and echogenicity are unremarkable.No liver mass is demonstrated.Zoey n portal vein measures 0.9 cm in diameter.Transverse diameter gallbladder is 3.1 cm.No gallstones, gallbladder wall thickening, or fluid around the gallbladder. Common bile duct is normal in diameter measuring 0.4 cm. Spleen is normal in siz e measuring 11 x 4 cm. Both kidneys are small and cortically thinned.Right kidne y measures 6.9 x 3.8 x 3.6 cm.Left kidney measures 7.6 x 4.2 x 3.8 cm.No renal m ass is demonstrated.1.2 cm cyst in the interpole right kidney noted.1.5 cm cyst in the lower pole left kidney noted. IMPRESSION: Small and cortically thinned ki dneys, in keeping with chronic kidney disease. No abnormality of the liver or bi liary system demonstrated. Signed: Camilla Negron MDReport Verified Date/Time: 2018 11:50:33 Reading Location: [address] Ultrasound Reading Room Enma ctronically signed by: CAMILLA NEGRON M.D. on 2018 11:50 AM HEMOGLOBIN [id number] 11:31:00* Test Item Value Reference Range Interpretation Comments HEMOGLOBIN A1C (BEAKER) (test code = 368) 7.1 % 4.3-6.1 H OCCULT BLOOD, [id number] 10:39:00* Test Item Value Reference Range Interpretation Comments FECAL OCCULT BLOOD (BEAKER) (test code = 618) Negative Negative OCCULT BLOOD, [id number] 10:39:00* Test Item Value Reference Range Interpretation Comments FECAL OCCULT BLOOD (BEAKER) (test code = 618) Negative Negative LIPID [id number] 10:19:00* Test Item Value Reference Range Interpretation [...] 130-159 High 160-189 Very High >=190 PROTHROMBIN TIME/[id number] 09:55:00* Test Item Value Reference Range Interpretation [...] pat ients with mechanical heart valves.T SPOT [id number] 08:48:00* Test Item Value Reference Range Interpretation Comments T-SPOT TB (BEAKER) (test code = 1683) Negative NEG CONTROL SPOT COUNT (BEAKER) (test code = 1684) 0 PANEL A SPOT (BEAKER) (test code = 1685) 0 PANEL B SPOT (BEAKER) (test code = 1686) [address] (BEAKER) (test code = 1687) 0 SCAN RESULT (test code = 7851395) URINE [id number] 15:02:00* Test Item Value Reference Range Interpretation [...] code = 47) R >100,000 col/mL skin ghpanIQC3086-17-62 13:51:00* Test Item Value Reference Range Interpretation Comments RPR SCREEN (Movea) (test code = 420) Nonreactive Nonreactive HEMOGLOBIN [id number] 12:45:00* Test Item Value Reference Range Interpretation Comments HEMOGLOBIN A1C (Movea) (test code = 368) 6.8 % 4.3-6.1 H VARICELLA ZOSTER ANTIBODY, [id number] 11:38:00* Test Item Value Reference Range Interpretation Comments VARICELLA ZOSTER IGG (AL) (Movea) (test code = 3197) > VARICELLA ZOSTER RESULT INTERPRETATIONS: <=0.8 Al Nonreactive: Presumed non-immune to VZV 0.9-1.0 Al Equivocal >=1.1 Al Reactive: Presumed immune to VZVCYTOMEGALOVIRUS ANTIBODY, [id number] 11:38:00* Test Item Value Reference Range Interpretation Comments CYTOMEGALOVIRUS, IGG (Movea) (test code = 3429) Positive Negat ric, Equivocal A CMV IgG Result Interpretation: </= 0.8 Al Negative 0.9-1.0 Al Equivocal > /=1.1 Al PositiveCYTOMEGALOVIRUS ANTIBODY, [id number] 11:38:00* Test Item Value Reference Range Interpretation Comments CYTOMEGALOVIRUS IGM ANTIBODY (Movea) (test code = 3437) Neg ative Negative, Equivocal CMV IgM Result Interpretation: </= 0.8 Al Negative 0.9-1.0 Al Equivocal > /= 1.1 Al PositiveEBV ANTIBODY, [id number] 11:38:00* Test Item Value Reference Range Interpretation Comments MAKENZIE JAMES VIRAL CAPSID ANTIGEN IGG (Movea) (test code = 3415) Positive Negative, Equivocal A Makenzie James Viral Capsid Antigen IgG Result Interpretation: </= 0.8 Al Negative 0.9-1.0 Al Equivocal >/= 1.1 Al PositiveEBV ANTIBODY, [id number] 11:38:00* Test Item Value Reference Range Interpretation Comments MAKENZIE JAMES VIRAL CAPSID ANTIGEN IGM (BEAKER) (test code = 3418) Negative Negative, Equivocal Makenzie James Viral Capsid Antigen IgM Result Interpretation: </= 0.8 Al Negative 0.9-1.0 Al Equivocal >/= 1.1 Al PositivePTH, [id number] 10:42:00* Test Item Value Reference Range Interpretation Comments PARATHYROID HORMONE INTACT (BEAKER) (test code = 577) 677.5 pg/mL 8.5-72.5 H HEPATITIS B SURFACE [id number] 09:49:00* Test Item Value Reference Range Interpretation Comments HEPATITIS B SURFACE ANTIBODY (BEAKER) (test code = 647) < mIU/mL <8.0 COMPREHENSIVE METABOLIC [id number] 09:48:00* Test Item Value Reference Range Interpretation [...] NOT APPLICABLE FOR DIALYSIS PATIENTS. URINALYSIS W/ [id number] 09:41:00* Test Item Value Reference Range Interpretation [...] 516) 1 /HPF SOURCE(BEAKER) (test code = 3527) HEPATITIS B SURFACE [id number] 09:41:00* Test Item Value Reference Range Interpretation Comments HEPATITIS B SURFACE ANTIGEN (2) (BEAKER) (test code = 2585) Nonreactive Nonreactive HEPATITIS B CORE ANTIBODY, [id number] 09:41:00* Test Item Value Reference Range Interpretation Comments HEPATITIS B CORE IGM ANTIBODY (BEAKER) (test code = 645) Non reactive Nonreactive HEPATITIS C [id number] 09:41:00* Test Item Value Reference Range Interpretation Comments HEPATITIS C ANTIBODY (BEAKER) (test code = 367) Nonreactive Nonrea ctive HIV-1 ANTIGEN WITH HIV-1/2 [id number] 09:41:00* Test Item Value Reference Range Interpretation Comments HIV-1 ANTIGEN WITH HIV 1\\T\\2 ANTIBODY (2) (BEAKER) (te st code = 2586) Nonreactive Nonreactive URIC [id number] 09:22:00* Test Item Value Reference Range Interpretation Comments URIC ACID (BEAKER) (test code = 773) 5.9 mg/dL 2.6-7.2 [id number] 09:22:00* Test Item Value Reference Range Interpretation Comments PHOSPHORUS (BEAKER) (test code = 604) 4.2 mg/dL 2.3-4.7 GAMMA GLUTAMYL TRANSFERASE (GGT)2018-03-28 09:22:00* Test Item Value Reference Range Interpretation Comments GAMMA GLUTAMYL TRANSFERASE (BEAKER) (test code = 364) 61 U/L 9-64 LACTATE DEHYDROGENASE (LDH)2018-03-28 09:22:00* Test Item Value Reference Range Interpretation Comments LACTATE DEHYDROGENASE (BEAKER) (test code = 635) 179 U/L 125-2 20 PT/[id number] 09:01:00* Test Item Value Reference Range Interpretation [...] mechanical heart valves.CBC W/PLT COUNT & AUTO NBKFSOKVJBYP5505-46-60 08:54:00* Test Item Value Reference Range Interpretation [...] (test code = 2801) 0 % 0-1 PARATHYROID SODMNRO7625-29-87 02:33:000.90[facility] HermannPARATHYROID PROFILE 2017-07-26 02:33:000.95[facility] HermannCHEM LKUDW0464-88-28 21:32:000.07[facility]annCHEM ADRBB2765-45-99 21:32:0014[facility] HermannCHEM REEAW5820-73-85 21:32:91485Punthwzl HermannCHEM LAUSD0351-38-45 21:32:0038[facility]annCHEM VJENJ5851-76-88 21:32:0043[facility]annCHEM UAZSS5174-00-05 21:32:00* Test Item Value Reference Range Interpretation Comments A/G Ratio (test code = A/G Ratio) 0.6 1 0.7-1.6 [facility]annCHEM EZVZG9808-78-34 21:32:002.8[facility] HermannCHEM PANEL 2017-07-25 21:32:007.5[facility] HermannCHEM MQUNC6735-32-94 21:32:004.7[facility] HermannCHEM UWFNA5489-02-90 21:32:00* Test Item Value Reference Range Interpretation Comments B/C Ratio (test code = B/C Ratio) 9 1 6-25 [facility]annCHEM XQOWX4831-58-75 21:32:006.9[facility] HermannCHEM PANEL 2017-07-25 21:32:000.5[facility] HermannCHEM WETYA0385-00-05 21:32:0016.4[facility]annCHEM DMDJR1642-35-24 21:32:0022[facility] HermannCHEM IVECI9299-72-00 21:32:98498Crdzcmjj HermannCHEM MEPKH0092-68-71 21:32:003.21[facility]annCHEM KPGQV7352-93-04 21:32:0030[facility]annCHEM YUBLI9315-49-32 21:32:004.4 [facility]annCHEM BOOAY1122-33-59 21:32:92802Rbjefxkt HermannCHEM PANEL 2017-07-25 21:32:85766Oymmmgok GyjfjurTLOCFBWEGC7496-58-75 21:32:0085.9[facility] RlwlanyNXDEEVUACY1116-26-73 21:32:0013.4[facility] KlxwtauDDMDDMPTFM6893-76-37 21:32:007.6[facility] IhvbgfwXUBBSGOCKB5363-24-96 21:32:00* Test Item Value Reference Range Interpretation Comments MCH (test code = MCH) 28.6 pg 27.0-31.0 [facility] CbbofywISWTFDOKXA3714-13-18 21:32:0033.3[facility] HermannHEMATOLOGY 2017-07-25 21:32:0010.8[facility] GgjclvnGLPGIPFJGJ5378-34-41 21:32:0032.5[facility] WtkoeovXXFLFIRYNV8739-20-93 21:32:003.78[facility] QjesfmdJLUGCHBPJL0714-52-57 21:32:007.5[facility] QdzskcuRUDUKOQNEN2533-14-68 21:32:84408Reljzmjt [place] KDAOEPLDSE7807-57-59 21:32:000.1[facility] IhvwcimINFNOQVMAH0305-22-71 21:32:000.2 [facility] TckegdbZLNXIHNNKI6416-62-70 21:32:000.5[facility] HermannHEMATOLOGY 2017-07-25 21:32:001.5[facility] WztepzeCUOUNCWVRY7843-00-75 21:32:001.2[facility] QpmmwyeEFJZWENTYV9787-51-41 21:32:005.3[facility] OgujjxoXANTOFHLSE7908-23-01 21:32:0019.5[facility] DhhdetkFFSSMIQWGE6830-60-71 21:32:006.1[facility] GNVGGXTNAA2129-32-82 21:32:002.7[facility] PesttjhHUBXVHZQHZ4792-41-84 21:32:00 70.5[facility] HermannCARDIAC RENFSPY4138-56-67 18:16:001.4[facility] HermannCARDIAC UNRUKXZ6966-46-82 18:16:40545Itdoclol HermannCARDIAC XRMKEDR2274-83-75 18:16:00< 0.02[facility] HermannCARDIAC LWPBBFC0835-87-72 18:16:0058[facility]annC[facility]AC NVGSUZZ5550-17-91 18:16:000.8[facility] HermannCHEM JHZAL9463-75-78 18:16:0020 [facility]annCHEM ZBZUH7351-22-35 18:16:000.8[facility]annCHEM PANEL 2016-10-19 18:16:001.0[facility]annCHEM BEODW9406-73-72 18:16:003.8[facility] HermannCHEM OKCKL2519-62-30 18:16:0012.1[facility]annCHEM OODXW2901-09-49 18:16:0011[facility]annCHEM UDAMZ1167-04-72 18:16:17578Evadefpb HermannCHEM IPLOY5006-75-80 18:16:009[facility]annCHEM VOFBB2444-61-85 18:16:003.0 [facility]annCHEM NNQIH2066-97-15 18:16:0015[facility]annCHEM PANEL 2016-10-19 18:16:006.8[facility] HermannCHEM WMUNX5401-21-30 18:16:007.8[facility]annCHEM WCKHG5389-38-64 18:16:0024[facility]annCHEM KDMOO4051-07-85 18:16:004.1[facility]annCHEM ITKSA2911-53-41 18:16:20260Juzhgtcf HermannCHEM NZGWT2602-71-34 18:16:09706Gelgvbci HermannCHEM BKLYI8340-38-55 18:16:002.50 [facility]annCHEM DFNJV2985-32-57 18:16:56910Wljdwvsj HermannCHEM PANEL 2016-10-19 18:16:0027[facility] MdcztpyXMEPFUSKUH9661-25-82 18:16:000.4[facility] ZdniicfDETQDFYPCJ1913-98-56 18:16:001.7[facility] LqkwrjyVFRUQWGBMZ1383-92-66 18:16:006.2[facility] QuyhasdWRLIXAQWPN4142-92-00 18:16:000.1[facility] USDRDXDQYI7582-72-44 18:16:000.3[facility] BpjgdjiSJVKISZAVF5634-95-13 18:16:004.9 [facility] TyxttxzBHIMRUICYD9644-03-25 18:16:0019.6[facility] HermannHEMATOLOGY 2016-10-19 18:16:0071.9[facility] YskwncuYZZLHRMLSA3292-56-70 18:16:000.6[facility] OnmkpmyIPABTVTNLZ3362-92-10 18:16:003.0[facility] WqfiejtXLLKGKIGNE9868-26-13 18:16:003.48[facility] DcmierqYEOBECHIFC4483-35-71 18:16:008.6[facility] PEQSTSYSTV0929-75-28 18:16:0087.2[facility] KbhekgqEVRVIZNWMX8123-07-93 18:16:00 30.4[facility] KzxoevhCUILPKGWPJ5819-49-75 18:16:0010.1[facility]annHEMATOLOGY 2016-10-19 18:16:006.9[facility] IkcbvngFKRCCYKAKP3551-21-01 18:16:00* Test Item Value Reference Range Interpretation Comments MCH (test code = MCH) 29.0 pg 27.0-31.0 [facility] QapycqtIDTAOAIJWH1211-55-87 18:16:0033.3[facility]annHEMATOLOGY 2016-10-19 18:16:23521Opgrnuld HzheghnBIEDHPDZRL3425-96-68 18:16:0014.1[facility] MzhpkpoYHMJMXSRDK3747-39-31 18:16:00* Test Item Value Reference Range Interpretation Comments PT (test code = PT) 13.8 s 12.0-14.7 [facility] XjtfnjsOZQPCZTBWD0438-33-03 18:16:001.04[facility]annHE[facility]OLOGY 2016-10-19 18:16:00* Test Item Value Reference Range Interpretation Comments PTT (test code = PTT) 31.3 s 22.9-35.8 [facility] QYMSO6647-55-17 18:16:00Large *ABN*(10/19/16 1:16 PM) [facility] AZXZR8746-67-31 18:16:0014[facility] GEEIJ7363-95-21 18:16:00Negative (10/19/16 1:16 PM)[facility] STOOL 2016-10-19 18:16:00Negative (10/19/16 1:16 PM)[facility] STOOL 2016-10-19 18:16:00>182[facility] GEUBQ7335-82-41 18:16:00Yellow *NA*(10/19/16 1:16 PM)[facility] KDWKI0851-72-10 18:16:005.0 [facility] ZZVBM5019-73-55 18:16:00Marked *ABN*(10/19/16 1:16 PM) [facility] TACTN8873-65-14 18:16:001.014[facility] BZZKC4730-45-33 18:16:00Negative *NA*(10/19/16 1:16 PM)[facility]annCHEM PANEL 2016-02-18 18:44:0019[facility] HermannCHEM WAJIY7100-84-06 18:44:002.60[facility]annCHEM UYTPJ5073-70-77 18:44:0023[facility]annCHEM NAMBH0428-44-34 18:44:004.4[facility]annCHEM WQOHO9980-70-00 18:44:81876Zhnxhzaz HermannCHEM TWPBN3428-65-86 18:44:50774Iiqwxpct HermannCHEM ACQNN1450-75-93 18:44:008.0 [facility]annCHE[facility] IKPLT0578-21-98 18:44:59094Kpvqggsk HermannCHEM PANEL 2016-02-18 18:44:0027[facility]annCHEM BDAJT7671-24-55 18:44:0013.4[facility] AacyymyYBNERJJOVC0722-19-82 18:44:004.34[facility] DwysepqCOPCJYPZTN9551-92-91 18:44:006.9[facility] VhzuhmeNFYPFMEOKN4352-24-91 18:44:0035.6[facility] YAJIARNHTQ3189-41-42 18:44:0012.0[facility] HkeovkqUMQPWBMQRN0066-41-29 18:44:00 408[facility] CduqeqbBAXCYCFNSR9162-59-54 18:44:0014.6[facility]annHEMATOLOGY 2016-02-18 18:44:00* Test Item Value Reference Range Interpretation Comments MCH (test code = MCH) 27.7 pg 27.0-31.0 [facility] LprcwkiAQZZJPABAH4513-16-73 18:44:0033.8[facility]annHEMATOLOGY 2016-02-18 18:44:007.6[facility] XcfnmtmPUDBBSOPCY6157-61-78 18:44:0082.0[facility] VclzoqmEXLVFDOXOD3422-64-15 18:44:004.9[facility] EedujudGRJEHNTGLM7976-88-01 18:44:000.1[facility] WzcpfseUYIBESSAKO4319-56-12 18:44:000.3[facility] KVONTFTUYR5392-93-20 18:44:001.5[facility] QkffkppYNGPDKOFRM4417-18-72 18:44:000.9 [facility] DgilrokNOPPRTDDJV1892-79-04 18:44:002.0[facility]annHEMATOLOGY 2016-02-18 18:44:000.1[facility] TmdootxCMAEPRRUSP8467-98-63 18:44:004.4[facility] RicjppaRMRHOXGRVP7413-43-73 18:44:0021.4[facility] ZsxwerpZAKPKIMVVS3386-43-38 18:44:0071.3[facility] ZRTZU5556-22-61 18:44:00Trace *ABN*(02/18/16 1:44 PM)[facility] ISPUH5742-72-93 18:44:005 [facility] VCFQM7033-02-55 18:44:001[facility] VJRQD3903-85-09 18:44:00Negative (02/18/16 1:44 PM)[facility] JKJCY7537-15-65 18:44:00Negative (02/18/16 1:44 PM)[facility] SFDHX2549-29-32 18:44:00Negative *NA*(02/18/16 1:44 PM)[facility] RPSVC7719-35-03 18:44:005.0[facility] HVMDA3844-70-08 18:44:00 Slight *ABN*(02/18/16 1:44 PM)[facility] KEAZA3795-41-61 18:44:00 1.018[facility] EFQRP2811-63-75 18:44:00Yellow *NA*(02/18/16 1:44 PM)[facility] UejhwntQMDPSNWSJ6577-61-53 12:12:4928[facility]annCHEMISTRY 2012-09-07 12:12:493.9[facility] BtfpsnuJWLCVJZPQ2492-93-91 12:12:4925[facility] AkxbetqFPXYKOXGK6860-56-09 12:12:490.4[facility] RhtvgqwTRCUSDBQR9618-78-28 12:12:498.7[facility] PnbcdchMEMOVGNZB8540-22-56 12:12:497.6[facility] OZWLBXXYS7551-61-55 12:12:498[facility] AfixtwuKHMQVOSFN8450-12-74 12:12:4913.7 [facility] CtztsciEAOYHJFJI0350-67-01 12:12:4912[facility]annCHEMISTRY 2012-09-07 12:12:490.9[facility] UvkujejYEUAJSDZZ8391-56-83 12:12:86461Zjcxnsrd VjgsnyeAMIDKLAME7950-63-75 12:12:491.9[facility] PicatwmQHTVWDIJO7375-09-44 12:12:92887Ocwnocua DnupzgnFWQNRELKQ3566-69-16 12:12:4923[facility] HQVEVGQEC9870-85-15 12:12:493.7[facility] FaywbamLBHGMLFRW3164-83-99 12:12:4994 [facility] NxkbdevJWZESQZAI3741-77-57 12:12:493.7[facility] HermannCHEMISTRY 2012-09-07 12:12:4914[facility] MxntcabECNOHVYVS8657-73-04 12:12:32013Hjlksche HermannBEDSIDE GLUCOSE GXGZLJE8027-19-84 11:21:35236Kdhpujnf [facility]
--- OUTSIDE RECORDS SUMMARY | 2020-02-09 14:01 | XMS REPORT | Continuity of Care Document ---
Author Author Steve BookeenTAY [employer] Address Unknown Phone Unavailable Care Team Providers Care Manager Play Name Role Phone [employer] Unavailable Un available Problems Problem Status Onset Date Classification Date Reported Comments Source BACK PAIN Active 08/23/2018 [facility] SYDNEE, NAUSEA AND VOMITING Active 08/23/2018 [facility] Chronic kidney disease, unspecified 07/25/2017 11/01/2017 [facility] Hypocalcemia 07/25/2017 11/01/2017 [facility] Unspecified osteoarthritis, unspecified site 07/25/2017 11/01/2017 [facility] Pain in right knee 07/25/2017 11/01/2017 [facility] SWOLLEN LEGS Active 07/25/2017 [facility] Urinary tract infection, site not specified 10/19/2016 10/22/2016 [facility] WEAKNESS Active 10/19/2016 [facility] Discharge Diagnosis: Benign hypertension with CKD (chronic kidney disease) stage IV 02/18/2016 02/21/2016 [facility] Discharge Diagnosis: Bilateral flank pain 02/18/2016 02/21/2016 [facility] LWR BACK PAIN Active 02/18/2016 [facility] SEBACEOUS CYST ON RIGHT SIDE OF FACE Active 08/22/2012 [facility] ABSCESS Active 08/04/2012 [facility] Arthritis (disorder) Resolved Problem 08/27/2018 [facility] [place] Diabetes mellitus (disorder) R esolved Problem [facility] [place] Hypercholesterolemia (disorder) Resolved Problem [facility] [place] Hypertensive disorder, systemic arterial (disorder) Active Problem 08/27/2018 [facility] [place] Depressive disorder (disorder) Resolved Problem [facility] [place] Arthritis Resolved Problem 09/09/2012 [facility] Diabetes mellitus Resolved Problem 09/09/2012 [facility] [place] Hypertension Active Problem 09/09/2012 [facility] Hypertensive chronic kidney disease with stage 1 through stage 4 chronic kidney disease, or unspecified chronic kidney disease 11/01/2017 [facility] Type 2 diabetes mellitus with diabetic c hronic kidney disease 11/01/2017 [facility] 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 11/01/2017 [facility] SEBACEOUS CYST Active [facility] ACUTE KIDNEY FAILURE, UNSPECIFIED Active [facility] NAUSEA WITH VOMITING, UNSPECIFIED Active [facility] Medications Medication Details Route Status Patient Instructions Ordering Provider Order Date Source atorvastatin 40 mg oral tablet 40 mg = 1 tab, PO, Bedtime, # 90 tab, 1 Refill(s) Active 08/25/2018 [facility] calcitriol 0.5 mcg oral capsule 0.5 microgram = 1 cap, PO, Daily, # 30 cap, 0 Refill(s) Active 08/25/2018 [facility] carvedilol 25 mg, PO, BID, 0 R efill(s) Active 08/25/2018 [facility] Vitamin D2 50,000 intl units oral capsule 50,000 IntlUnit = 1 cap, PO, 0 Refill(s) Active 08/25/2018 [facility] baclofen 5 mg oral tablet 10 m g = 2 tab, PO, TID, 0 Refill(s) Active 08/25/2018 [facility] Furosemide 40 MG Oral Tablet 4 0 mg = 1 tab, PO, BID, 0 Refill(s) Active 08/25/2018 [facility] Hydroxyzine Hydrochloride 25 MG Oral Tablet 25 mg = 1 tab, PO, Q8H, 0 Refill(s) Inactive 08/25/2018 [facility] Hydralazine Hydrochloride 50 MG Oral Tablet 100 mg = 2 tab, PO, TID, 0 Refill(s) Active 08/25/2018 [facility] atorvastatin Notes: (Same as: Lipitor) No Longer Active 08/25/2018 [facility] sennosides, RETIREMENT Notes: (Same a s: Senokot) No Longer Active 08/25/2018 [facility] Hydralazine Notes: (Same as: A presoline) May interfere w/enteral feedings Take With Food. No Longer Active 08/24/2018 [facility] Robaxin Notes: (Same as:Robaxi n) No Longer Active 08/24/2018 [facility] metoprolol tartrate Notes: (Sa me as: Lopressor) No Longer Active 08/24/2018 [facility] Amlodipine Notes: (Same as: No rvasc) No Longer Active 08/24/2018 [facility] POLYETHYLENE GLYCOL 3350 Notes : Dissolve in 8 oz of water or juice. (Same as: Miralax) No Longer Active 08/24/2018 [facility] Docusate Notes: (Same as: Cola ce) (Do Not Crush) No Longer Active 08/24/2018 [facility] heparin Notes: porcine heparin No Longer Active 08/24/2018 [facility] NIFEdipine 30 mg oral tablet, extended release Notes: (Same as: Adalat CC, Procardia XL) Give on empty stomach. Take 1 hour before or 2 hours after meal; "Avoid grapefruit and grapefruit juice". Do not crush Inactive 08/24/2018 [facility] tizanidine Notes: (Same As: Za naflex) No Longer Active 08/24/2018 [facility] Hydralazine Notes: (Same as: A presoline) Push over 5 minutes No Longer Active 08/24/2018 [facility] Insulin Lispro Notes: (Same as : Humalog ) Roll in palms of hands gently; Do not shake `vigorously. "Single Patient Use Only " WASTE: F/P - Black; E - Duck Duck Moose Trash Bin Stable for 28 days at room temp erature. Expires in days from Date No Longer Active 08/24/2018 [facility] Dextrose 50% Syringe 12.5 gm, 25 mL, Route: IVP, Drug Form: INJ, Dosing Weight 79.091, kg, PRN, PRN Blood Glucose Results, Start date: 08/24/18 1:07:00 CDT, Duration: 30 day, Stop date: 09/23/18 1:06:00 CDT No Longer Active 08/24/2018 [facility] Glucagon 1 mg, Route: IM, Drug form: PDR/INJ, PRN, Dosing Weight 79.091, kg, PRN Blood Glucose Results, Start date: 08/24/18 1:07:00 CDT, Duration: 30 day, Stop date: 09/23/18 1:06:00 CDT No Longer Active 08/24/2018 [facility] Lactated Ringers IV 1,000 mL 1 ,000 mL, Rate: 125 ml/hr, Infuse over: 8 hr, Route: IV, Dosing Weight 79.091 kg, Total Volume: 1,000, Start date: 08/24/18 1:06:00 CDT, Duration: 30 day, Stop date: 09/23/18 1:05:00 CDT, 1.89, m2 No Longer Active 08/24/2018 [facility] Hydromorphone Notes: (Same as: Dilaudid) No Longer Active 08/24/2018 [facility] Saline Flush 0.9% Notes: (Same as: BD Posiflush) No Longer Active 08/24/2018 [facility] Acetaminophen Notes: Do not ex ceed 4 gm/day. (Same as: Tylenol) No Longer Active 08/24/2018 [facility] Dextrose 50% Syringe 25 mL, Ro kasaan: IVP, Dosing Weight 79.091, kg, PRN, PRN Blood Glucose Results, Start date: 08/24/18 1:06:00 CDT, Duration: 30 day, Stop date: 09/23/18 1:05:00 CDT Inactive 08/24/2018 [facility] Bisacodyl Notes: (Same As: Dul colax, Bisco-Lax) No Longer Active 08/24/2018 [facility] Melatonin Notes: (Same as: Angela atonin) No Longer Active 08/24/2018 [facility] Ondansetron Notes: (Same as: Viry zhang) MEDICATION WASTE Product Size: 4 mg Product Wasted: ___ mg No Longer Active 08/24/2018 [facility] Glucagon 1 mg, Route: IM, PRN, Dosing Weight 79.091, kg, PRN Blood Glucose Results, Start date: 08/24/18 1:06:00 CDT, Duration: 30 day, Stop date: 09/23/18 1:05:00 CDT Inactive 08/24/2018 [facility] Saline Flush 0.9% Notes: (Same as: BD Posiflush) No Longer Active 08/24/2018 [facility] tramadol hydrochloride 50 MG Oral Tablet 50 mg = 1 tab, PO, Q8H, PRN Pain, X 5 day, # 24 tab, 0 Refill(s) No Longer Active 07/26/2017 [facility] Glipizide 10 mg, PO, BID, 0 Re fill(s) Active 07/26/2017 [facility] Hydralazine 25 mg, PO, BID, 0 Refill(s) Active 07/26/2017 [facility] atorvastatin 40 mg, PO, Bedtim e, 0 Refill(s) Active 07/26/2017 [facility] Tramadol 50 mg, PO, PRN, 0 Ref ill(s) Active 07/26/2017 [facility] metoprolol tartrate 50 mg oral tablet 50 mg = 1 tab, PO, BID, 0 Refill(s) Active 07/26/2017 [facility] tramadol hydrochloride 50 MG Oral Tablet 50 mg, Route: PO, Drug form: TAB, ONCE, Dosing Weight 84.091, kg, Priority: STAT, Start date: 07/25/17 21:25:00 CDT, Stop date: 07/25/17 21:25:00 CDT Inactive 07/26/2017 [facility] Cephalexin 500 MG Oral Capsule [Keflex] 500 mg = 1 cap, PO, BID, X 10 day, # 20 cap, 0 Refill(s) Active 10/19/2016 [facility] Sodium Chloride 0.154 MEQ/ML Injectable Solution 1,000 mL, 1000 ml/hr, Infuse Over: 1 hr, Route: IV, 1,000, Drug form: INJ, ONCE, Priority: STAT, Dosing Weight 91.818 kg, Start date: 10/19/16 15:07:00 CDT, Duration: 1 doses or times, Stop date: 10/19/16 15:07:00 CDT Inactive 10/19/2016 [facility] Pyridium Notes: Give with meal s. (Same as: Pyridium) Inactive 10/19/2016 [facility] Ceftriaxone Notes: (Same As: iVni greene). Use with 100 mL NS and infuse over 30 min MEDICATION WASTE Product Size: 2000 mg Product Wasted: ___ mg Inactive 10/19/2016 [facility] Saline Flush 0.9% Notes: (Same as: BD Posiflush) Inactive 10/19/2016 [facility] Docusate Sodium 100 MG Oral Capsule [Colace] 100 mg = 1 cap, PO, BID, PRN Constipation, # 20 cap, 0 Refill(s) Active 02/18/2016 [facility] Acetaminophen 300 MG / Codeine Phosphate 30 MG Oral Tablet [Tylenol with Codeine #3] 1 - 2 tab, PO, Q4H, PRN Pain, X 2 day, # 20 tab, 0 Refill(s) No Longer Active 02/18/2016 [facility] Sodium Chloride 0.154 MEQ/ML Injectable Solution 1,000 mL, 2,000 ml/hr, Infuse Over: 30 minutes, Route: IV, ONCE, Priority: STAT, Dosing Weight 91.818 kg, Start date: 02/18/16 13:38:00 CDT, Duration: 1 doses or times, Stop date: 02/18/16 13:38:00 CDT Inactive 02/18/2016 [facility] Saline Flush 0.9% Notes: (Same as: BD Posiflush) Inactive 02/18/2016 [facility] Morphine 4 mg, Route: IVP, ONC E, Dosing Weight 91.818, kg, Priority: STAT, Start date: 02/18/16 13:38:00 CDT, Stop date: 02/18/16 13:38:00 CDT Inactive 02/18/2016 [facility] Ondansetron 4 mg, Route: IVP, ONCE, Dosing Weight 91.818, kg, Priority: STAT, Start date: 02/18/16 13:38:00 CDT, Stop date: 02/18/16 13:38:00 CDT Inactive 02/18/2016 [facility] Vicodin 5/500 oral tablet 1 ta b, PO, Q6H, 30 tab, Substitution Allowed, Maintenance PO Active Free t 09/07/2012 [facility] nter naloxone 0.04 mg, 0.1 mL, Rout e: IVP, Drug form: INJ, Q2MIN, Dosing Weight 83.182, kg, PRN Narcotic Reversal, Start date: 09/07/12 10:30:00, Duration: 8 doses or times, Stop date: 09/08/12 0:00:00 IVP No Longer Active Hemmad 09/07/2012 [facility] flumazenil 0.2 mg, 2 mL, Route : IVP, Drug form: INJ, PRN, Dosing Weight 83.182, kg, PRN Benzodiazepine Reversal, Initial dose, Start date: 09/07/12 10:30:00, Duration: 30 day, Stop date: 10/07/12 10:29:00 IVP No Longer Active [facility]mad 08/14 [facility] ondansetron 4 mg, 2 mL, Route: IVP, Drug form: INJ, ONCE, Dosing Weight 83.182, kg, PRN Nausea & Vomiting, Start date: 09/07/12 10:30:00 IVP No Longer Active [facility] 09/07/2012 [facility] acetaminophen-hydrocodone 325 mg-10 mg/1 5 mL oral solution 15 mL, Route: PO, Drug Form: SOLN, Dosin g Weight 83.182, kg, Q6H, PRN Pain, Start date: 09/07/12 10:30:00, Duration: 30 day, Stop date: 10/07/12 10:29:00 PO No Longer Active [facility] 08/14 [facility] labetalol 5 mg, 1 mL, Route: I [employer], Drug form: INJ, Q5Min, Dosing Weight 83.182, kg, PRN Elevated BP, Start date: 09/07/12 10:30:00, Duration: 5 doses or times, Stop date: 09/08/12 0:00:00 [facility] tetanus-diphtheria toxoids adult intramu scular suspension 0.5 ml, Route: IM, Dosing Weight 82.727, kg, ONCE, STAT, Start date: 06/02/12 14:10:00, Stop date: 06/02/12 14:10:00 IM No Longer Active [place] 06/02/2012 [facility] Allergies, Adverse Reactions, Alerts No Known Medication Allergies Immunizations Immunization Date Given Site Status Last Updated Comments Source pneumococcal 13-valent vaccine 08/25/2018 Right Deltoid completed September [facility] tetanus-diphtheria toxoids Right deltoid completed [facility] tetanus-diphtheria toxoids completed Lacy pearl [facility] [place] tetanus-diphtheria toxoids Right deltoid completed [facility], [facility] [place] Results Order Name Results Value Reference Range [...] should be multiplied by the estimated BMI. [facility] CHEM PANEL Calcium Lvl 8.5 8.5 - 10.5 08/25/2018 [facility] CHEM PANEL CO2 23 24 - 32 08/25/2018 [facility] CHEM PANEL AGAP 14.0 10.0 - 20.0 08/25/2018 [facility] CHEM PANEL Glucose Lvl 141 70 - 99 08/25/2018 [facility] CHEM PANEL BUN 66 7 - 22 08/25/2018 [facility] CHEM PANEL Potassium Lvl 4.0 3.5 - 5.1 08/25/2018 [facility] CHEM PANEL Chloride Lvl 111 95 - 109 08/25/2018 [facility] CHEM PANEL Creatinine Lvl 4.49 0.50 - 1.40 08/25/2018 [facility] CHEM PANEL Sodium Lvl 144 135 - 145 08/25/2018 [facility] ELECTROLYTES Chloride Lvl 108 95 - 109 08/24/2018 [facility] ELECTROLYTES Calcium Lvl 8.3 8.5 - 10.5 08/24/2018 [facility] ELECTROLYTES AGAP 12.0 10.0 - 20.0 08/24/2018 [facility] ELECTROLYTES CO2 23 24 - 32 08/24/2018 [facility] ELECTROLYTES eGFR 9 08/24/2018 Result Comment: [...] should be multiplied by the estimated BMI. [facility] ELECTROLYTES Glucose Lvl 205 70 - 99 08/24/2018 [facility] ELECTROLYTES Creatinine Lvl 4.6 7 0.50 - 1.40 08/24/2018 [facility] ELECTROLYTES Sodium Lvl 139 135 - 145 08/24/2018 [facility] ELECTROLYTES BUN 70 7 - 22 08/24/2018 [facility] ELECTROLYTES Potassium Lvl 4.0 3.5 - 5.1 08/24/2018 [facility] URINE AND STOOL UA Amorph Luly Occasional /HPF None Seen /HPF 08/24/[address] [facility] [address] URINE AND STOOL UA RBC 1 0 - 2 08/24/2018 [facility] URINE AND STOOL UA Bacteria Occasional /HPF None Seen /HPF 08/24/[address] [facility] [address] URINE AND STOOL UA Sq Epi Few /LPF Few /LPF 08/24/2018 [facility] URINE AND STOOL UA WBC 1 0 - 5 08/24/2018 [facility] URINE AND STOOL UA Blood Negative (08/24/18 12:15 AM) Negative 08/24/2018 [facility] URINE AND STOOL UA Bili Negative *NA* (08/24/18 12:15 AM) Negative 08/24/2018 [facility] URINE AND STOOL UA pH 5.0 5.0 - 8.0 08/24/2018 [facility] URINE AND STOOL UA Spec Grav 1.012 <=1.030 08/24/2018 [facility] URINE AND STOOL UA Nitrite Negative (08/24/18 12:15 AM) Negative 08/24/2018 [facility] URINE AND STOOL UA Leuk Est Negative (08/24/18 12:15 AM) Negative 08/24/2018 [facility] URINE AND STOOL UA Urobilinogen <=1.0 mg/dL 0.1 - 1.0 08/24/2018 [facility] URINE AND STOOL UA Ketones Negative *NA* (08/24/18 12:15 AM) Negative 08/24/2018 [facility] URINE AND STOOL UA Protein 100 mg/dL Negative mg/dL 08/24/2018 [facility] URINE AND STOOL UA Glucose 150 mg/dL Negative mg/dL 08/24/2018 [facility] URINE AND STOOL UA Turbidity Slight *ABN* (08/24/18 12:15 AM) Clear 08/24/2018 [facility] URINE AND STOOL UA Color Yellow *NA* (08/24/18 12:15 AM) Yellow 08/24/2018 [facility] CHEM PANEL Lipase Lvl 600 73 - 393 08/24/2018 [facility] CHEM PANEL eGFR 8 08/24/2018 Result [...] should be multiplied by the estimated BMI. [facility] CHEM PANEL Bili Total 0.5 0.2 - 1.3 08/24/2018 [facility] CHEM PANEL AST 18 0 - 37 08/24/2018 [facility] CHEM PANEL Alk Phos 127 39 - 136 08/24/2018 [facility] CHEM PANEL Glucose Lvl 187 70 - 99 08/24/2018 [facility] CHEM PANEL BUN 72 7 - 22 08/24/2018 [facility] CHEM PANEL Potassium Lvl 4.1 3.5 - 5.1 08/24/2018 [facility] CHEM PANEL Chloride Lvl 107 95 - 109 08/24/2018 [facility] CHEM PANEL Creatinine Lvl 5.01 0.50 - 1.40 08/24/2018 [facility] CHEM PANEL Sodium Lvl 141 135 - 145 08/24/2018 [facility] CHEM PANEL CO2 26 24 - 32 08/24/2018 [facility] CHEM PANEL Albumin Lvl 3.6 3.5 - 5.0 08/24/2018 [facility] CHEM PANEL ALT 22 0 - 65 08/24/2018 [facility] CHEM PANEL Calcium Lvl 9.0 8.5 - 10.5 08/24/2018 [facility] CHEM PANEL Total Protein 7.9 6.4 - 8.4 08/24/2018 [facility] CHEM PANEL B/C Ratio 14 6 - 25 08/24/2018 [facility] CHEM PANEL AGAP 12.1 10.0 - 20.0 08/24/2018 [facility] CHEM PANEL Globulin 4.3 2.7 - 4.2 08/24/2018 [facility] CHEM PANEL A/G Ratio 0.8 0.7 - 1.6 08/24/2018 [facility] MPV 8.2 7.4 - 10.4 08/24/2018 [facility] HEMATOLOGY Platelet 337 133 - 450 08/24/2018 [facility] HEMATOLOGY Hct 33.6 36.0 - 48.0 08/24/2018 [facility] MCH 29.9 27.0 - 31.0 08/24/2018 [facility] MCV 92.8 80.0 - 98.0 08/24/2018 [facility] RDW 14.8 11.5 - 14.5 08/24/2018 [facility] MCHC 32.2 32.0 - 36.0 08/24/2018 [facility] Hgb 10.8 12.0 - 16.0 08/24/2018 [facility] HEMATOLOGY RBC 3.63 4.20 - 5.40 08/24/2018 [facility] WBC 7.0 3.7 - 10.4 08/24/2018 [facility] HEMATOLOGY Eosinophils 0.5 0.0 - 4.0 08/24/2018 [facility] Monocytes 2.5 2.0 - 12.0 08/24/2018 [facility] HEMATOLOGY Segs 84.0 45.0 - 75.0 08/24/2018 [facility] Lymphocytes 12.0 20.0 - 40.0 08/24/2018 [facility] Basophils # 0.1 0.0 - 0.2 08/24/2018 [facility] Monocytes # 0.2 0.0 - 0.8 08/24/2018 [facility] Lymphocytes # 0.8 1.0 - 5.5 08/24/2018 [facility] HEMATOLOGY Neutrophils # 5.9 1.5 - 8.1 08/24/2018 [facility] HEMATOLOGY Basophils 1.0 0.0 - 1.0 08/24/2018 [facility] PARATHYROID PROFILE Ca Norm WB 0.90 1.05 - 1.25 07/26/2017 Result Comment: Critical Result(s) negra Humphreys at 07/25/2017 21:47 by MS. Read back OK. [facility] PARATHYROID PROFILE Ca Ion WB 0.95 1.05 - 1.25 07/26/2017 [facility] CHEM PANEL Ketone Quantitative 0.07 <=0.27 mmol/L 07/25/2017 [facility] CHEM PANEL eGFR 14 07/25/2017 Result [...] should be multiplied by the estimated BMI. [facility] CHEM PANEL Alk Phos 240 39 - 136 07/25/2017 [facility] CHEM PANEL AST 38 0 - 37 07/25/2017 [facility] CHEM PANEL ALT 43 0 - 65 07/25/2017 [facility] CHEM PANEL A/G Ratio 0.6 0.7 - 1.6 07/25/2017 [facility] CHEM PANEL Albumin Lvl 2.8 3.5 - 5.0 07/25/2017 [facility] CHEM PANEL Total Protein 7.5 6.4 - 8.4 07/25/2017 [facility] CHEM PANEL Globulin 4.7 2.7 - 4.2 07/25/2017 [facility] CHEM PANEL B/C Ratio 9 6 - 25 07/25/2017 [facility] CHEM PANEL Calcium Lvl 6.9 8.5 - 10.5 07/25/2017 Result Comment: Critical Result(s) negra saldana at 07/25/2017 17:04 by [place]. Read back OK. [facility] CHEM PANEL Bili Total 0.5 0.2 - 1.3 07/25/2017 [facility] CHEM PANEL AGAP 16.4 10.0 - 20.0 07/25/2017 [facility] CHEM PANEL CO2 22 24 - 32 07/25/2017 [facility] CHEM PANEL Chloride Lvl 104 95 - 109 07/25/2017 [facility] CHEM PANEL Creatinine Lvl 3.21 0.50 - 1.40 07/25/2017 [facility] CHEM PANEL BUN 30 7 - 22 07/25/2017 [facility] CHEM PANEL Potassium Lvl 4.4 3.5 - 5.1 07/25/2017 [facility] CHEM PANEL Sodium Lvl 138 135 - 145 07/25/2017 [facility] CHEM PANEL Glucose Lvl 277 70 - 99 07/25/2017 [facility] HEMATOLOGY MCV 85.9 80.0 - 98.0 07/25/2017 [facility] HEMATOLOGY RDW 13.4 11.5 - 14.5 07/25/2017 [facility] HEMATOLOGY MPV 7.6 7.4 - 10.4 07/25/2017 [facility] HEMATOLOGY MCH 28.6 27.0 - 31.0 07/25/2017 [facility] HEMATOLOGY MCHC 33.3 32.0 - 36.0 07/25/2017 [facility] HEMATOLOGY Hgb 10.8 12.0 - 16.0 07/25/2017 [facility] HEMATOLOGY Hct 32.5 36.0 - 48.0 07/25/2017 [facility] HEMATOLOGY RBC 3.78 4.20 - 5.40 07/25/2017 [facility] HEMATOLOGY WBC 7.5 3.7 - 10.4 07/25/2017 [facility] HEMATOLOGY Platelet 400 133 - 450 07/25/2017 [facility] HEMATOLOGY Basophils # 0.1 0.0 - 0.2 07/25/2017 [facility] HEMATOLOGY Eosinophils # 0.2 0.0 - 0.5 07/25/2017 [facility] HEMATOLOGY Monocytes # 0.5 0.0 - 0.8 07/25/2017 [facility] HEMATOLOGY Lymphocytes # 1.5 1.0 - 5.5 07/25/2017 [facility] HEMATOLOGY Basophils 1.2 0.0 - 1.0 07/25/2017 [facility] HEMATOLOGY Segs-Bands # 5.3 1.5 - 8.1 07/25/2017 [facility] HEMATOLOGY Lymphocytes 19.5 20.0 - 40.0 07/25/2017 [facility] HEMATOLOGY Monocytes 6.1 2.0 - 12.0 07/25/2017 [facility] HEMATOLOGY Eosinophils 2.7 0.0 - 4.0 07/25/2017 [facility] HEMATOLOGY Segs 70.5 45.0 - 75.0 07/25/2017 [facility] CARDIAC ENZYMES CK MB Index 1.4 0.0 - 2.5 10/19/2016 [facility] CARDIAC ENZYMES BNP 124 <=100 pg/mL 10/19/2016 [facility] CARDIAC ENZYMES Troponin-I <0.02 0.00 - 0.40 10/19/2016 [facility] CARDIAC ENZYMES Total CK 58 12 - 191 10/19/2016 [facility] CARDIAC ENZYMES CK MB 0.8 0.5 - 3.6 10/19/2016 [facility] CHEM PANEL eGFR 20 10/19/2016 Result [...] should be multiplied by the estimated BMI. [facility] CHEM PANEL A/G Ratio 0.8 0.7 - 1.6 10/19/2016 [facility] CHEM PANEL Bili Total 1.0 0.2 - 1.3 10/19/2016 [facility] CHEM PANEL Globulin 3.8 2.7 - 4.2 10/19/2016 [facility] CHEM PANEL AGAP 12.1 10.0 - 20.0 10/19/2016 [facility] CHEM PANEL B/C Ratio 11 6 - 25 10/19/2016 [facility] CHEM PANEL Alk Phos 167 39 - 136 10/19/2016 [facility] CHEM PANEL AST 9 0 - 37 10/19/2016 [facility] CHEM PANEL Albumin Lvl 3.0 3.5 - 5.0 10/19/2016 [facility] CHEM PANEL ALT 15 0 - 65 10/19/2016 [facility] CHEM PANEL Total Protein 6.8 6.4 - 8.4 10/19/2016 [facility] CHEM PANEL Calcium Lvl 7.8 8.5 - 10.5 10/19/2016 [facility] CHEM PANEL CO2 24 24 - 32 10/19/2016 [facility] CHEM PANEL Potassium Lvl 4.1 3.5 - 5.1 10/19/2016 [facility] CHEM PANEL Sodium Lvl 140 135 - 145 10/19/2016 [facility] CHEM PANEL Chloride Lvl 108 95 - 109 10/19/2016 [facility] CHEM PANEL Creatinine Lvl 2.50 0.50 - 1.40 10/19/2016 [facility] CHEM PANEL Glucose Lvl 255 70 - 99 10/19/2016 [facility] CHEM PANEL BUN 27 7 - 22 10/19/2016 [facility] HEMATOLOGY Monocytes # 0.4 0.0 - 0.8 10/19/2016 [facility] HEMATOLOGY Lymphocytes # 1.7 1.0 - 5.5 10/19/2016 [facility] HEMATOLOGY Segs-Bands # 6.2 1.5 - 8.1 10/19/2016 [facility] HEMATOLOGY Basophils # 0.1 0.0 - 0.2 10/19/2016 [facility] HEMATOLOGY Eosinophils # 0.3 0.0 - 0.5 10/19/2016 [facility] HEMATOLOGY Monocytes 4.9 2.0 - 12.0 10/19/2016 [facility] HEMATOLOGY Lymphocytes 19.6 20.0 - 40.0 10/19/2016 [facility] HEMATOLOGY Segs 71.9 45.0 - 75.0 10/19/2016 [facility] HEMATOLOGY Basophils 0.6 0.0 - 1.0 10/19/2016 [facility] HEMATOLOGY Eosinophils 3.0 0.0 - 4.0 10/19/2016 [facility] HEMATOLOGY RBC 3.48 4.20 - 5.40 10/19/2016 [facility] HEMATOLOGY WBC 8.6 3.7 - 10.4 10/19/2016 [facility] HEMATOLOGY MCV 87.2 80.0 - 98.0 10/19/2016 [facility] HEMATOLOGY Hct 30.4 36.0 - 48.0 10/19/2016 [facility] Hgb 10.1 12.0 - 16.0 10/19/2016 [facility] MPV 6.9 7.4 - 10.4 10/19/2016 [facility] MCH 29.0 27.0 - 31.0 10/19/2016 [facility] MCHC 33.3 32.0 - 36.0 10/19/2016 [facility] HEMATOLOGY Platelet 347 133 - 450 10/19/2016 [facility] HEMATOLOGY RDW 14.1 11.5 - 14.5 10/19/2016 [facility] HEMATOLOGY PT 13.8 12.0 - 14.7 10/19/2016 [facility] HEMATOLOGY INR 1.04 0.85 - 1.17 10/19/2016 [facility] HEMATOLOGY PTT 31.3 22.9 - 35.8 10/19/2016 [facility] URINE AND STOOL UA Urobilinogen <=1.0 mg/dL 0.1 - 1.0 10/19/2016 [facility] URINE AND STOOL UA Sq Epi None Seen 10/19/2016 [facility] URINE AND STOOL UA Leuk Est Large *ABN* (10/19/16 1:16 PM) Negative 10/19/2016 [facility] URINE AND STOOL UA RBC 14 0 - 2 10/19/2016 [facility] URINE AND STOOL UA Blood Negative (10/19/16 1:16 PM) Negative 10/19/2016 [facility] URINE AND STOOL UA Nitrite Negative (10/19/16 1:16 PM) Negative 10/19/2016 [facility] URINE AND STOOL UA Bacteria Moderate /HPF None Seen /HPF 10/19/2016 [facility] URINE AND STOOL UA WBC >182 0 - 5 10/19/2016 [facility] URINE AND STOOL UA Color Yellow *NA* (10/19/16 1:16 PM) Yellow 10/19/2016 [facility] URINE AND STOOL UA pH 5.0 5.0 - 8.0 10/19/2016 [facility] URINE AND STOOL UA Glucose 150 mg/dL Negative mg/dL 10/19/2016 [facility] URINE AND STOOL UA Turbidity Marked *ABN* (10/19/16 1:16 PM) Clear 10/19/2016 [facility] URINE AND STOOL UA Spec Grav 1.014 <=1.030 10/19/2016 [facility] URINE AND STOOL UA Protein 100 mg/dL Negative mg/dL 10/19/2016 [facility] URINE AND STOOL UA Bili Negative *NA* (10/19/16 1:16 PM) Negative 10/19/2016 [facility] URINE AND STOOL UA Ketones Negative mg/dL Negative mg/dL 10/19/2016 [facility] CHEM PANEL eGFR 19 02/18/2016 Result [...] should be multiplied by the estimated BMI. [facility] CHEM PANEL Creatinine Lvl 2.60 0.50 - 1.40 02/18/2016 [facility] CHEM PANEL CO2 23 24 - 32 02/18/2016 [facility] CHEM PANEL Potassium Lvl 4.4 3.5 - 5.1 02/18/2016 [facility] CHEM PANEL Sodium Lvl 137 135 - 145 02/18/2016 [facility] CHEM PANEL Chloride Lvl 105 95 - 109 02/18/2016 [facility] CHEM PANEL Calcium Lvl 8.0 8.5 - 10.5 02/18/2016 [facility] CHEM PANEL Glucose Lvl 229 70 - 99 02/18/2016 [facility] CHEM PANEL BUN 27 7 - 22 02/18/2016 [facility] CHEM PANEL AGAP 13.4 10.0 - 20.0 02/18/2016 [facility] HEMATOLOGY RBC 4.34 4.20 - 5.40 02/18/2016 [facility] HEMATOLOGY WBC 6.9 3.7 - 10.4 02/18/2016 [facility] HEMATOLOGY Hct 35.6 36.0 - 48.0 02/18/2016 [facility] HEMATOLOGY Hgb 12.0 12.0 - 16.0 02/18/2016 [facility] HEMATOLOGY Platelet 408 133 - 450 02/18/2016 [facility] HEMATOLOGY RDW 14.6 11.5 - 14.5 02/18/2016 [facility] HEMATOLOGY MCH 27.7 27.0 - 31.0 02/18/2016 [facility] MCHC 33.8 32.0 - 36.0 02/18/2016 [facility] HEMATOLOGY MPV 7.6 7.4 - 10.4 02/18/2016 [facility] MCV 82.0 80.0 - 98.0 02/18/2016 [facility] Segs-Bands # 4.9 1.5 - 8.1 02/18/2016 [facility] HEMATOLOGY Eosinophils # 0.1 0.0 - 0.5 02/18/2016 [facility] HEMATOLOGY Monocytes # 0.3 0.0 - 0.8 02/18/2016 [facility] HEMATOLOGY Lymphocytes # 1.5 1.0 - 5.5 02/18/2016 [facility] HEMATOLOGY Basophils 0.9 0.0 - 1.0 02/18/2016 [facility] HEMATOLOGY Eosinophils 2.0 0.0 - 4.0 02/18/2016 [facility] HEMATOLOGY Basophils # 0.1 0.0 - 0.2 02/18/2016 [facility] HEMATOLOGY Monocytes 4.4 2.0 - 12.0 02/18/2016 [facility] HEMATOLOGY Lymphocytes 21.4 20.0 - 40.0 02/18/2016 [facility] HEMATOLOGY Segs 71.3 45.0 - 75.0 02/18/2016 [facility] URINE AND STOOL UA Urobilinogen <=1.0 mg/dL 0.1 - 1.0 02/18/2016 [facility] URINE AND STOOL UA Mucus Few /LPF None Seen /LPF 02/18/2016 [facility] URINE AND STOOL UA Sq Epi Few /LPF Few /LPF 02/18/2016 [facility] URINE AND STOOL UA Leuk Est Trace *ABN* (02/18/16 1:44 PM) Negative 02/18/2016 [facility] URINE AND STOOL UA Bacteria Few /HPF None Seen /HPF 02/18/2016 [facility] URINE AND STOOL UA WBC 5 0 - 5 02/18/2016 [facility] URINE AND STOOL UA RBC 1 0 - 2 02/18/2016 [facility] URINE AND STOOL UA Nitrite Negative (02/18/16 1:44 PM) Negative 02/18/2016 [facility] URINE AND STOOL UA Blood Negative (02/18/16 1:44 PM) Negative 02/18/2016 [facility] URINE AND STOOL UA Ketones Negative mg/dL Negative mg/dL 02/18/2016 [facility] URINE AND STOOL UA Bili Negative *NA* (02/18/16 1:44 PM) Negative 02/18/2016 [facility] URINE AND STOOL UA Protein 100 mg/dL Negative mg/dL 02/18/2016 [facility] URINE AND STOOL UA Glucose 50 mg/dL Negative mg/dL 02/18/2016 [facility] URINE AND STOOL UA pH 5.0 5.0 - 8.0 02/18/2016 [facility] URINE AND STOOL UA Turbidity Slight *ABN* (02/18/16 1:44 PM) Clear 02/18/2016 [facility] URINE AND STOOL UA Spec Grav 1.018 <=1.030 02/18/2016 [facility] URINE AND STOOL UA Color Yellow *NA* (02/18/16 1:44 PM) Yellow 02/18/2016 [facility] CHEMISTRY eGFR 28 09/07/2012 NA <sup>2</sup>Result [...] should be multiplied by the estimated BMI. [facility] CHEMISTRY Globulin 3.9 2.0 - 4.0 09/07/2012 Normal [facility] CHEMISTRY CO2 25 24 - 32 09/07/2012 Normal [facility] CHEMISTRY Bili Total 0.4 0.2 - 1.3 09/07/2012 Normal [facility] CHEMISTRY Calcium Lvl 8.7 8.5 - 10.5 09/07/2012 Normal [facility] CHEMISTRY Total Protein 7.6 6.4 - 8.4 09/07/2012 Normal [facility] CHEMISTRY AST 8 0 - 37 09/07/2012 Normal [facility] CHEMISTRY AGAP 13.7 10.0 - 20.0 09/07/2012 Normal [facility] CHEMISTRY B/C Ratio 12 6 - 25 09/07/2012 Normal [facility] CHEMISTRY A/G Ratio 0.9 0.7 - 1.6 09/07/2012 Normal [facility] CHEMISTRY Chloride Lvl 105 95 - 109 09/07/2012 Normal [facility] CHEMISTRY Creatinine Lvl 1.9 0.5 - 1.4 09/07/2012 [facility] CHEMISTRY Sodium Lvl 140 135 - 145 09/07/2012 Normal [facility] CHEMISTRY BUN 23 7 - 22 09/07/2012 [facility] CHEMISTRY Potassium Lvl 3.7 3.5 - 5.1 09/07/2012 Normal [facility] CHEMISTRY Glucose Lvl 94 70 - 99 09/07/2012 Normal <sup>3</sup>Interpretive Data: Adult ref erence range values reflect the clinical guidelines
of the [place] [employer]. [facility] CHEMISTRY Albumin Lvl 3.7 3.5 - 5.0 09/07/2012 Normal [facility] CHEMISTRY ALT 14 0 - 65 09/07/2012 Normal [facility] CHEMISTRY Alk Phos 103 39 - 136 09/07/2012 Normal [facility] BEDSIDE GLUCOSE TESTING Gluc POC Lif scn 112 70 - 99 09/07/2012 [facility] <sup>1</sup>Interpretive Data: Upper Reportable Limit: 200 mg/dL. [facility] Pathology Reports No Data [...] abdomen or pelvis E SL DLAWRENCE-PC 08/23/2018 [facility] Retroperitoneal Complete US EX AM: US [...] demonstrated. The ureters are patent. 10/31/2017 [facility] Knee series 3 views DX Study: 3 views of right knee joint. History: Knee pain. Comments: Decreased bone mineralization. No acute fracture or dislocation. There is tricompartmental osteophytosis suggesting mild degenerative arthritis. Chondrocalcinosis in the tibiofemoral compartment. IMPRESSION: No acute fracture or dislocation. 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 SL: ROSALIND-PC 07/25/2017 [facility] Chest 1view DX Patient Name: Sánchez HERNANDEZ : 1950; Age: 66 years y/o Female MR: [id number] * CHEST, portable, 1 view HISTORY: Chest pain. COMPARISON: 09/22/2011. TECHNIQUE: A portable frontal radiograph of the chest was obtained. FINDINGS: The lungs are clear. There are no pleural effusions. There is mild cardiomegaly. There is no evidence of failure. The regional skeleton is unremarkable. IMPRESSION: 1. No active disease. 2. Mild cardiomegaly. SL: [id number] 10/19/2016 [facility] Renal Stone CT Patient Name: Sánchez HERNANDEZ : 1950; Age: 65 years y/o Female MR: [id number] Study: Renal Stone CT 02/18/2016 1:38 PM [...] is intact. IMPRESSION: No acute findings. SL: [id number] 02/18/2016 [facility] Consultation Notes No Data Provided for This Section Discharge Summaries No Data Provided for This Section History and Physicals No Data Provided for This Section Vital Signs Vital Sign Value Date Comments Source Temperature Oral (F) 97.6 F 08/25/2018 [facility] Heart Rate 76 08/25/2018 [facility] Respitory Rate 18 08/25/2018 [facility] Systolic (mm Hg) 165 08/25/2018 [facility] Diastolic (mm Hg) 69 08/25/2018 [facility] Systolic (mm Hg) 152 08/25/2018 [facility] Diastolic (mm Hg) 63 08/25/2018 [facility] Respitory Rate 18 08/25/2018 [facility] Heart Rate 75 08/25/2018 [facility] Temperature Oral (F) 98.1 F 08/25/2018 [facility] Systolic (mm Hg) 135 08/25/2018 [facility] Diastolic (mm Hg) 63 08/25/2018 [facility] Respitory Rate 18 08/25/2018 [facility] Heart Rate 70 08/25/2018 [facility] Temperature Oral (F) 98.2 F 08/25/2018 [facility] Weight 76.903 08/24/2018 [facility] BMI Calculated 31.01 08/24/2018 [facility] Height 157.48 cm 08/24/2018 [facility] Weight 79.091 08/24/2018 [facility] BMI Calculated 31.89 08/24/2018 [facility] Height 157.48 cm 08/24/2018 [facility] Heart Rate 78 07/26/2017 [facility] Respitory Rate 18 07/26/2017 [facility] Systolic (mm Hg) 195 07/26/2017 [facility] Diastolic (mm Hg) 80 07/26/2017 [facility] Heart Rate 71 07/26/2017 [facility] Systolic (mm Hg) 188 07/26/2017 [facility] Diastolic (mm Hg) 84 07/26/2017 [facility] Respitory Rate 18 07/26/2017 [facility] Weight 84.091 07/25/2017 [facility] BMI Calculated 33.91 07/25/2017 [facility] Height 157.48 cm 07/25/2017 [facility] Respitory Rate 18 07/25/2017 [facility] Heart Rate 71 07/25/2017 [facility] Systolic (mm Hg) 197 07/25/2017 [facility] Diastolic (mm Hg) 86 07/25/2017 [facility] Systolic (mm Hg) 189 10/19/2016 [facility] Diastolic (mm Hg) 90 10/19/2016 [facility] Temperature Oral (F) 98.1 F 10/19/2016 [facility] Respitory Rate 17 10/19/2016 [facility] Respitory Rate 17 10/19/2016 [facility] Systolic (mm Hg) 176 10/19/2016 [facility] Diastolic (mm Hg) 87 10/19/2016 [facility] Systolic (mm Hg) 164 10/19/2016 [facility] Diastolic (mm Hg) 78 10/19/2016 [facility] Respitory Rate 17 10/19/2016 [facility] BMI Calculated 37.02 10/19/2016 [facility] Height 157.48 cm 10/19/2016 [facility] Temperature Oral (F) 98.9 F 10/19/2016 [facility] Heart Rate 96 10/19/2016 [facility] Weight 91.818 10/19/2016 [facility] Respitory Rate 17 02/18/2016 [facility] Heart Rate 89 02/18/2016 [facility] Systolic (mm Hg) 151 02/18/2016 [facility] Diastolic (mm Hg) 74 02/18/2016 [facility] Temperature Oral (F) 98.2 F 02/18/2016 [facility] Height 157.48 cm 02/18/2016 [facility] Weight 91.818 02/18/2016 [facility] Respitory Rate 18 02/18/2016 [facility] Temperature Oral (F) 98.4 F 02/18/2016 [facility] BMI Calculated 37.02 02/18/2016 [facility] Systolic (mm Hg) 144 02/18/2016 [facility] Diastolic (mm Hg) 99 02/18/2016 [facility] Heart Rate 97 02/18/2016 [facility] Respitory Rate 15 09/07/2012 [facility] Systolic (mm Hg) 122 09/07/2012 [facility] Diastolic (mm Hg) 60 09/07/2012 [facility] Diastolic (mm Hg) 74 09/07/2012 [facility] Systolic (mm Hg) 141 09/07/2012 [facility] Respitory Rate 10 09/07/2012 [facility] Systolic (mm Hg) 169 09/07/2012 [facility] Diastolic (mm Hg) 82 09/07/2012 [facility] Respitory Rate 10 09/07/2012 [facility] Heart Rate 84 09/07/2012 [facility] Weight 83.182 09/07/2012 [facility] Height 160.02 cm 09/07/2012 [facility] Weight 84.091 08/05/2012 [facility] Height 160.02 cm 08/05/2012 [facility] Encounters Location Location Details Encounter Type Encounter Number Reason For Visit Attending Provider ADM Date DC Date Status Source [facility] Emergency [id number] LAZARUS CASSIUS 08/05/2012 08/05/2012 Discharged [facility] DS [id number] SEBACEOUS CYST ON RIGHT SIDE OF FACE BENJAMÍN CLEOPATRA 09/07/2012 Active [facility] Emergency [id number] Miguel Abasilia Gautam 02/18/2016 02/18/2016 [facility] Emergency [id number] Jason Landon 10/19/2016 10/19/2016 [facility] Emergency [id number] Mark Redding 07/25/2017 07/26/2017 [facility] [place] [facility] [id number] 00 Jose Antonio Nelson 10/31/2017 11/01/2017 [facility] Observation [id number] Bruce Huff 08/24/2018 08/25/2018 [facility] Procedures Procedure Code Date Perfomer Comments Source Anesthesia for vaginal hysterectomy [id number] [facility] [place] section [id number] [facility] Anesthesia for vaginal hysterectomy [id number] [facility] section [id number] [facility] Assessment and Plan Assessment [...] gastroenteritis, resolved -Uncontrolled hypertension with nephropa thy -Nxg-[id number] type 2 diabetes m omar CONSULTS: none PROCEDURES: Chief complaint , HPI and HOSPITAL COURSE: Patient with chronic kidney disease, hypertension came with back pain, workup negative for any acute etiology. Creatinine slightly worsened compared to baseline, was given IV fluids and advised her to follow-up with her [employer] utility. She is on transplant list Discharge condition: [...] of p.o. medication -Resume home medications, hydralazine NV N Heparin Observation, anticipate 1 midnight 08/25/2018 [facility] Plan of Care No Data Provided for This Section Social History Social History Date Source Social History TypeResponse Substance Abuse Use: None. Alcohol Never Smoking Status Never smoker; Ready to change: No; Concerns about tobacco use in household: No; Exposure to Tobacco Smoke None; Cigarette Smoking Last 365 Days No; Reg Smoking Cessation Counseling No entered on: 08/24/18 08/24/2018 [facility] Social History TypeResponse Smoking Status Never [...]
--- OUTSIDE RECORDS SUMMARY | 2020-02-09 14:02 | XMS REPORT | Continuity of Care Document ---
Author Author [facility] t Organization [facility] Address [address] [place] [address] Phone Unavailable Care Team Providers Care Director Product Development Name Role Phone NONSTAFF PCP Unavailable CHAYO ZAYAS Attphys Unavailable Erich VAZQUEZ, Nasima De Leon Attphys Kira Lozoya MD Attphys Xochitl VAZQUEZ, Rigo Attphys Babita VAZQUEZ, Corrine Mena Mai Attphys [phone] Marlo AGRICULTURAL SERVICES DIRECTOR, Melissa Attphys Sariah TOUSSAINT, Lulu Attphys Unavailable Best VAZQUEZ, Jam Attphys Sajja, Bruce Attphys NYASIA CONNOLLYAMIDIPAJENA Attphys Unavailable Jose Antonio Nelson Attphys Kira Redding Attphys BarbiRussel Jason Attphys GautamDerekantwon Nino Attphys CHAYO ZAYAS Admphys Unavailable RIGO LEUNG Admphys Unavailable Bruce Huff Admphys Payers Payer Name Policy Type Policy Number Effective Date Expiration Date Be [facility] [id number] 2019 00:00:[address] [facility] UNITED HEALTHCARE MEDICAREUNITED HEALTHC ARE [email or web address] [address] xxxxxxxxx 2014 00:00:00 [facility] MED[facility] CONNECTED (MEDICARE-MEDICAID PLAN)xxxx [id number] 2019-PresentHMO [id number] 2019 00:00:00 Quinten Ho odist MEDICAID - MEDICAID MGD CAREFORMERLY [facility] STAR PLANxxxxxxxxxMe dicaid Contracted xxxxxxxxx [facility] - MEDICARE MGD CAREUNITED MEDICARE HMOxxxxxxxxx xxxxxxxxx [facility] MEDICAIDMEDICAID OF [place]xxxxxxxxxMedicaid xxxxxxxxx [facility] OPTUM NON UNITED - MEDICAID MGD CAREOPTUM NON-BEAUFORT STARxxxxxxx xx xxxxxxxxx [facility] Problems Condition Name Condition Details Condition Category Status Onset Date Resolution Date Last Treatment Date Treating Clinician Comments Source Acute renal failure (ARF) Acute renal failure (ARF) Disease Ac tive 2019-08-28 00:00:[address] BACK PAIN BACK PAIN Active 08/23/2018 [facility] Active 2018-08-23 00:00:00 2018-08-23 23:03:00 Steve Michele SYDNEE, NAUSEA AND VOMITING SYDNEE, NAUSEA AND VOMITING Active 08/23/2018 [facility] Diagnosis Active 2018-08-23 00:00:00 2018-08-27 15:14:00 Steve Michele Pre-transplant evaluation for chronic kidney disease P re-transplant evaluation for chronic kidney disease Disease Active 2018-02-19 00:00:00 [facility] Controlled type 2 diabetes mellitus with stage 5 chronic kidney disease not on chronic dialysis, without long-term current use of insulin Controlled type 2 diabetes mellitus with stage 5 chronic kidney disease not on chronic dialysis, without long-term current use of insulin Disease Active 2018-02-19 00:[facility] Essential hypertension Disease Active 2018-02-19 00:00:00 [facility] CKD (chronic kidney disease) stage 5, GFR less than 15 ml/min CKD (chronic kidney disease) stage 5, GFR less than 15 ml/min Disease Active 2018-02-19 00:00:00 [facility] Secondary hyperparathyroidism of renal origin Secondar y hyperparathyroidism of renal origin Disease Active 2018-02-19 00:00:00 [facility] Hyperlipidemia, unspecified hyperlipidemia type Hyperl ipidemia, unspecified hyperlipidemia type Disease Active 2018-02-19 00:00:00 [facility] SWOLLEN LEGS SWOL DANNY LEGS Active 07/25/2017 [facility] Diagnosis Active 2017-07-25 00:00:00 2017-07-25 17:31:00 Steve Michele WEAKNESS WEAK NESS Active 10/19/2016 [facility] Diagnosis Active 2016-10-19 00:00:00 2016-10-19 15:05:00 Steve Micheel LWR BACK PAIN LWR BACK PAIN Active 02/18/2016 [facility] Diagnosis Active 2016-02-18 00:00:00 2016-02-18 13:55:00 Steve Michele BMI 36.0-36.9,adult BMI 36.0-36.9,adult Disease Active 2014-12-30 00:00 :00 [facility] Dietary surveillance and counseling Dietary surveillance and cou nseling Disease Active 2014-12-30 00:00:00 [facility] SEBACEOUS CYST ON RIGHT SIDE OF FACE SEBACEOUS CYST ON RIGHT SIDE OF FACE Active 08/22/2012 [facility] Diagnosis Active 2012-08-22 00:00:00 2012-09-07 05:40:00 Steve Michele ABSCESS ABSC ESS Active 08/04/2012 [facility] Active 2012-08-04 12:00:00 2012-08-05 19:55:00 Steve Michele Back pain with radiation Back pain with radiation Disease Acti ve 2012-04-09 00:00:00 [facility] Knee pain Knee pain Disease Active 2012-04-09 00:00:00 [facility] Neck pain Neck pain Disease Active 2009-07-15 00:00:00 [facility] Arthralgia of multiple joints Arthralgia of multiple joints Disease Active 2008-09-03 00:00:00 [facility]alth Diabetes mellitus type II, uncontrolled Diabetes mellitus ty pe II, uncontrolled Disease Active 2006-03-27 00:00:00 [facility] Abdominal pain Problem Active [facility] 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 Problem Active [facility] Calciphylaxis Problem Active [facility] End-stage renal disease on peritoneal dialysis Problem Active [facility] Hypokalemia Problem Active [facility] Anemia Problem Active [facility] Sepsis Problem Active [facility] End-stage renal disease Problem Active [facility] Atrial fibrillation with rapid ventricular response Problem Active [facility] Hypertensive chronic kidney disease with stage 1 through stage 4 chronic kidney disease, or unspecified chronic kidney disease Hypertensive chronic kidney disease with stage 1 through stage 4 chronic kidney disease, or unspecified chronic kidney disease 11/01/2017 [facility] Problem 2017-11-01 14:25:16 Jamee Michele Type 2 diabetes mellitus with diabetic chronic kidney disease Type 2 diabetes mellitus with diabetic chronic kidney disease 11/01/2017 [facility] Problem 2017-11-01 14:25:16 Me lianne Michele [employer] (current) use of oral hypoglycemic drugs nursing home (current) use of oral hypoglycemic drugs 11/01/2017 [facility] Problem 2017-11-01 14:25:16 Steve Michele Arthritis (disorder) Arth ritis (disorder) Resolved Problem 08/27/2018 [facility], [facility] [place] Problem Resolved 2018-08-27 21:46:03 Steve Michele Diabetes mellitus (disorder) D iabetes mellitus (disorder) Resolved Problem 08/27/2018 Manny CELSO [place] Problem Resolved 2018-08-27 21:46:03 Jamee Michele Hypercholesterolemia (disorder) Hypercholesterolemia (disorder) Resolved Problem 08/27/2018 [place] CEL[place] Problem Resolved 2018-08-27 21:46:03 Jamee Michele Depressive disorder (disorder) Depressive disorder (disorder) Resolved Problem 08/27/2018 [facility] CELSO [place] Problem Resolved 2018-08-27 21:46:03 Jamee Michele Arthritis Arth ritis Resolved Problem 09/09/2012 [facility] Problem Resolved 2012-09-09 20:42:22 Steve Michele Diabetes mellitus Diab etes mellitus Resolved Problem 09/09/2012 [facility] Problem Resolved 2012-09-09 20:42:22 Steve Michele Hypertension Hype rtension Active Problem 09/09/2012 [facility] Problem Active 2012-09-09 20:42:22 Steve Michele SEBACEOUS CYST SEBA CEOUS CYST Active [facility] Diagnosis Active 2012-09-07 05:40:00 Ne lianne Michele ACUTE KIDNEY FAILURE, UNSPECIFIED ACUTE KIDNEY FAILURE, UNSPECIFIED Active [facility] Diagnosis Active 2018-08-27 15 :14:00 Steve Michele NAUSEA WITH VOMITING, UNSPECIFIED NAUSEA WITH VOMITING, UNSPECIFIED Active [facility] Diagnosis Active 2018-08-27 15 :14:00 Steve Michele Hypertension Hypertension Disease Active [facility] Hypertriglyceridemia Hypertriglyceridemia Disease Active [facility] Insomnia Insomnia Disease Active [facility] Atrophic vaginitis Atrophic vaginitis Disease Active [facility] Chronic kidney disease, unspecified Chronic kidney disease, [...] 2016-10-19 05:00:00 2016-10-22 04:25:28 2016-10-22 04:25:28 [facility] Dis[facility] Diagnosis: Benign hypertension with CKD (chronic kidney disease) stage IV Discharge Diagno sis: Benign hypertension with CKD (chronic kidney disease) stage IV 02/18/2016 02/21/2016 [facility] Problem 2016-02-18 05:00:00 2016-02-21 04:55:26 2016-02-21 04:55:26 [facility] Diagnosis: Bilateral flank pain Discharge Diagnosis: Bilateral flank pain 02/18/2016 02/21/2016 [facility] Problem 2016-02-18 05:00:00 2016-02-21 04:55:26 2016-02-21 04:55:26 [facility] Allergies, Adverse Reactions, Alerts Allergy Name Allergy Type Status Severity Reaction(s) Onset Date Inacti ve Date Treating Clinician Comments Source No Known Allergies DA Active U 2019-08-28 00:00:00 [facility] No Known Allergies DA Active U 2018-09-15 00:00:00 [facility] No Known Allergies DA Active U 2017-04-03 00:00:00 [facility] Family History Family Member Diagnosis Comments Start Date Stop Date Source Natural brother Diabetes [facility] Natural daughter Diabetes [facility] Natural father Alzheimer's disease [facility] Natural sister Unremarkable [facility] Natural son Diabetes [facility] Natural mother Diabetes Pandey [facility] Social History Social Habit Start Date Stop Date Quantity Comments Source History SDOH Alcohol Std Drinks [facility] History SDOH Alcohol Binge [facility] Sex Assigned [facility] Alcohol intake 2019-12-03 00:00:00 2019-12-03 00:00:00 Current non-drinker of alcohol (finding) [facility] Tobacco use and exposure 2019-08-29 00:00:00 2019-08-29 00:00:00 Nehazackary robles used [facility] History SDOH Alcohol Frequency 2019-08-28 00:00:00 2019-08-28 00:00:0 0 1 [facility] Social History 2018-08-24 10:16:41 2018-08-24 10:16:41 [facility] History SDOH Food Worry 2018-01-23 00:00:00 2018-01-23 00:00:00 1 [facility] History SDOH Food Scarcity 2018-01-23 00:00:00 2018-01-23 00:00:00 1 [facility] Smoking Status Start Date Stop Date Source Never smoker [facility] Medications Ordered Medication Name Filled Medication Name Start Date Stop Da te Current Medication? Ordering Clinician Indication Dosage Frequency Signature (SIG) Comments Components Source Cephalexin Monohydrate (Keflex) 500 Mg CAPSULE Cephale jett Monohydrate (Keflex) 500 Mg CAPSULE 2020-01-31 04:36:00 Yes 500 Every 12 Hours [facility] metFORMIN (GLUCOPHAGE XR) 500 mg ER extended release tablet 2019-12-03 00:00:00 Yes Type 2 diabetes mellitus with hyperglycemia, without long-term current use of insulin 500mg Q.5D Take 1 tablet by mouth 2 times buffy y. [facility] naproxen (NAPROSYN) 500 mg tablet 2019-12-03 00:00:00 Yes Bilateral low back pain with sciatica, sciatica laterality unspecified, unspecified chronicity 500mg Take 1 tablet by mouth 2 times daily (with meal s). [facility] gabapentin (NEURONTIN) 100 mg capsule 2019-12-03 00:00:00 Yes Neuropathy 100mg Take 1 capsule by mouth 3 times daily. [facility] glipiZIDE (GLUCOTROL) 10 mg tablet 2019-10-03 00:00:00 Yes Type 2 diabetes mellitus with hyperglycemia, without long-term current use of insulin 10mg Q.5D Take 1 tablet by mouth 2 times daily (before meals). [facility] aspirin 81 mg chewable tablet 2019-08-30 00:00:00 2019-09-29 23: 59:00 No 81mg QD Chew 1 tablet (81 mg total) daily for 30 days. [facility] potassium chloride (K-DUR) 10 MEQ CR tablet 2019-08-29 15:34:30 Yes 20meq QD Take 20 mEq by mouth daily. Quinten Alnoso calcitrioL (ROCALTROL) 0.5 MCG capsule 2019-08-29 15:34:30 Yes 1ug QD Take 1 mcg by mouth daily. Quinten Methmalena rios ferric citrate (AURYXIA ORAL) 2019-08-29 15:34:30 Yes 420mg [id number] Take 420 mg by mouth 3 (three) [...] a day before meals for 30 days. [facility] amitriptyline (ELAVIL) 25 MG tablet 2019-08-29 00:00:0 0 2019-09-28 23:59:00 No 25mg QD Take 1 tablet (25 mg total) by mouth nig htly for 30 days. [facility] carvediloL (COREG) 6.25 MG tablet 2019-08-29 00:00:00 2019 23:59:00 No 6.25mg Q.5D Take 1 tablet (6 .25 mg total) by mouth 2 (two) times a day with meals for 30 days. [facility] furosemide (LASIX) 40 mg tablet 2019-07-19 00:00:00 Yes Localized edema 40mg Q.5D Take 1 tablet by mouth 2 times daily. [facility] carvediloL (COREG) 25 mg tablet 2019-07-19 00:00:00 Yes Essential hypertension with goal blood pressure less than 130/85 25mg Take 1 tablet by mouth 2 times daily (with meals). [facility] furosemide (LASIX) 40 mg tablet 2019-02-25 00:00:00 Yes Acute renal failure with acute tubular necrosis superimposed on stage 5 chronic kidney disease, not on chronic dialysis 40mg Q.5D Take 1 tablet by mouth 2 times daily. [facility] amitriptyline (ELAVIL) 25 mg tablet 2019-02-25 00:00:00 Yes Neuropathic pain syndrome (non-herpetic) 25mg Take 1 tabl et by mouth at bedtime nightly at bedtime (1 tablet = 25 mg). [facility] Jake ames allopurinol (ZYLOPRIM) 100 mg tablet 2019-02-25 00:00:00 Yes Idiopathic gout, unspecified chronicity, unspecified site 100mg QD Take 1 tablet by mouth daily. [facility] atorvastatin (LIPITOR) 40 mg tablet 2019-02-25 00:00:00 Yes Mixed hyperlipidemia 40mg Take 1 tablet by mouth at bedtime nightly. [facility] walker Misc 2019-02-25 00:00:00 Yes Fall, subsequ ent encounter by Mis.(Non-Drug; Combo Route) route Walker with seat and wheels along with hand brakes. [facility] glipiZIDE (GLUCOTROL) 10 mg tablet 2019-02-25 00:00: 00:00:00 No Type 2 diabetes mellitus with hyperglyce mehdi, without long-term current use of insulin 10mg Q.5D Take 1 tablet by mouth 2 times daily (before me als). [facility] tropicamide (MYDRIACYL) 0.5 % ophthalmic solution 2019-02-25 00:00:00 2019-08-24 23:59:00 No Type 2 diabetes carlos itus with hyperglycemia, without long-term current use of insulin 1[drp] Instill 1 Drop in each eye once as needed for up to 1 dose (for poor retina scan image). [facility] glipiZIDE (GLUCOTROL) 10 mg tablet 2018-08-28 00:00:00 201 01-22-14 00:00:00 No Type 2 diabetes mellitus with hyperglyce mehdi, without long-term current use of insulin 10mg Q.5D Take 1 tablet by mouth 2 times daily (before me als). [facility] atorvastatin 40 mg oral tablet 2018-08-25 15:45:00 [...] 2018-08-25 02:00:00 No Notes: (Same as: Lipitor) [facility] Ryne sennosides, MCFP 2018-08-25 02:00:00 No Notes: (Same as: Senokot) [facility] Hydralazine 2018-08-24 21:00:00 No Notes: (Same as: Apresoline) May interfere w/enteral feedings Take With Food. [facility] Robaxin 2018-08-24 16:00:00 No Notes: (Same as:Robaxin) [facility] metoprolol tartrate 2018-08-24 14:00:00 No Notes: (Same as: Lopressor) [facility] Amlodipine 2018-08-24 14:00:00 No Notes: (S elizabeth as: Norvasc) [facility] POLYETHYLENE GLYCOL 3350 2018-08-24 14:00:00 No Notes: Dissolve in 8 oz of water or juice. (Same as: Miralax) [facility] Docusate 2018-08-24 14:00:00 No Notes: (Same as: Colace) (Do Not Crush) [facility] heparin 2018-08-24 13:00:00 No Notes: porci ne heparin [facility] NIFEdipine 30 mg oral tablet, extended release 2018-08-24 07:23: 00 No Notes: (Same as: Adalat CC, Procardia XL ) Give on empty stomach. Take 1 hour before or 2 hours after meal; "Avoid grapefruit and grapefruit juice". Do not crush [facility] tizanidine 2018-08-24 06:36:00 No Notes: (S elizabeth As: Zanaflex) [facility] Hydralazine 2018-08-24 06:30:00 No Notes: (Same as: Apresoline) Push over 5 minutes [facility] Insulin Lispro 2018-08-24 06:07:00 No Notes: (Same as: Humalog ) Roll in palms of hands gently; Do not shake `vigorously. "Single Patient Use Only " WASTE: F/P - Black; E - Municipal Trash Bin Stable for 28 days at room temperature. Expires in days from Date [facility] Dextrose 50% Syringe 2018-08-24 06:07:00 No 12.5 gm, 25 mL, Route: IVP, Drug Form: INJ, Dosing Weight 79.091, kg, PRN, PRN Blood Glucose Results, Start date: 08/24/18 1:07:00 CDT, Duration: 30 day, Stop date: 09/23/18 1:06:00 CDT [facility] Glucagon 2018-08-24 06:07:00 No 1 mg, Route: IM, Drug form: PDR/INJ, PRN, Dosing Weight 79.091, kg, PRN Blood Glucose Results, Start date: 08/24/18 1:07:00 CDT, Duration: 30 day, Stop date: 09/23/18 1:06:00 CDT [facility] Lactated Ringers IV 1,000 mL 2018-08-24 06:06:00 No 1,000 mL, Rate: 125 ml/hr, Infuse over: 8 hr, Route: IV, Dosing Weight 79.091 kg, Total Volume: 1,000, Start date: 08/24/18 1:06:00 CDT, Duration: 30 day, Stop date: 09/23/18 1:05:00 CDT, 1.89, m2 [facility] Hydromorphone 2018-08-24 06:06:00 No Notes: (Same as: Dilaudid) [facility] Saline Flush 0.9% 2018-08-24 06:06:00 No Notes: (Same as: BD Posiflush) [facility] Acetaminophen 2018-08-24 06:06:00 No Notes: Do not exceed 4 gm/day. (Same as: Tylenol) [facility] Dextrose 50% Syringe 2018-08-24 06:06:00 No 25 mL, Route: IVP, Dosing Weight 79.091, kg, PRN, PRN Blood Glucose Results, Start date: 08/24/18 1:06:00 CDT, Duration: 30 day, Stop date: 09/23/18 1:05:00 CDT [facility] Bisacodyl 2018-08-24 06:06:00 No Notes: (Same As: Dulcolax, Bisco-Lax) [facility] Melatonin 2018-08-24 06:06:00 No Notes: (Sa me as: Melatonin) [facility] Ondansetron 2018-08-24 06:06:00 No Notes: (Same as: Zofran) MEDICATION WASTE Product Size: 4 mg Product Wasted: ___ mg Steve Michele Glucagon 2018-08-24 06:06:00 No 1 mg, Route: IM, PRN, Dosing Weight 79.091, kg, PRN Blood Glucose Results, Start date: 08/24/18 1:06:00 CDT, Duration: 30 day, Stop date: 09/23/18 1:05:00 CDT [facility] Saline Flush 0.9% 2018-08-24 02:56:00 No Notes: (Same as: BD Posiflush) [facility] furosemide (LASIX) 40 mg tablet 2018-07-20 00:00:00 00:00:00 No Acute renal failure with acute tubular necrosis superimposed on stage 5 chronic kidney disease, not on chronic dialysis 40mg Q.5D Take 1 tablet by mouth 2 times daily. [facility] furosemide (LASIX) 40 MG tablet 2018-03-28 09:10:13 Yes 20mg Q.5D Take 20 mg by mouth 2 (two) times daily . [facility] hydrALAZINE (APRESOLINE) 100 MG tablet 2018-03-28 09:10:13 Yes 50mg [id number] Take 50 mg by mouth 3 (three) times daily . [facility] NIFEdipine (ADALAT CC) 30 MG 24 hr tablet 2018-03-28 09:10:13 Yes 30mg QD Take 30 mg by mouth daily. [facility] aspirin 81 MG EC tablet 2018-03-28 09:10:13 Yes 81mg QD Take 81 mg by mouth daily. [facility] metoprolol (LOPRESSOR) 50 MG tablet 2018-03-28 09:10:13 Yes 50mg Q.5D Take 50 mg by mouth 2 (two) times daily. [facility] ferric citrate (AURYXIA ORAL) 2018-03-28 09:10:13 Yes 210mg Q.5D Take 210 mg by mouth 2 (two) times daily. [facility] amitriptyline (ELAVIL) 25 MG tablet 2018-02-19 09:09:17 Yes 25mg QD Take 25 mg by mouth nightly. [facility] calcitriol (ROCALTROL) 0.25 MCG capsule 2018-02-19 09:09:16 Yes .25ug QD Take 0.25 mcg by mouth daily. [facility] glipiZIDE (GLUCOTROL) 10 MG tablet 2018-02-19 09:09:16 Yes 10mg Take 10 mg by mouth 2 (two) times daily before meals. [facility] allopurinol (ZYLOPRIM) 100 MG tablet 2018-02-19 09:09:16 Ye s 100mg QD Take 100 mg by mouth daily. [facility] atorvastatin (LIPITOR) 40 MG tablet 2018-02-19 09:09:16 Yes 40mg QD Take 40 mg by mouth daily. [facility] triamcinolone (KENALOG) 0.025 % topical cream 2018-01-23 00: 00:00 Yes Rash Apply to affected area 3 times daily. [facility] calcitriol (ROCALTROL) 0.25 mcg capsule 2018-01-23 00:00:00 Yes Hypovitaminosis D .25ug QD Take 1 capsule by mouth daily. [facility] hydrALAZINE (APRESOLINE) 100 mg tablet 2018-01-23 00:00:00 Yes Essential hypertension with goal blood pressure less than 130/85 100mg Take 1 tablet by mouth 3 times daily. [facility] furosemide (LASIX) 40 mg tablet 2018-01-23 00:00:00 00:00:00 No Localized edema 40mg Q.5D Take 1 tablet by mouth 2 times daily. [facility] carvedilol (COREG) 12.5 mg tablet 2018-01-23 00:00:00 2019 00:00:00 No Essential hypertension with goal blood pressure less than 130/85 12.5mg Take 1 tablet by mouth 2 times daily (with meals). [facility] amitriptyline (ELAVIL) 25 mg tablet 2018-01-23 00:00:0 0 2019-02-25 00:00:00 No Neuropathic pain syndrome (non-herpetic) 25mg Take 1 tablet by mouth at bedtime nightly at bedtime (1 tablet = 25 mg). [facility] allopurinol (ZYLOPRIM) 100 mg tablet 2018-01-23 00:00: 00 2019-02-25 00:00:00 No Idiopathic gout, unspecified chronicity, unspecified s ite 100mg QD Take 1 tablet by mouth daily. [facility] atorvastatin (LIPITOR) 40 mg tablet 2017-11-28 00:00:0 0 2019-02-25 00:00:00 No Mixed hyperlipidemia 40mg Take 1 tablet by mouth at b edtime nightly. [facility] ferrous sulfate (FEOSOL) 325 mg (65 mg iron) tablet 09-01 00:00:00 Yes Iron deficiency anemia, unspecified iron deficiency anemia type 325mg QD Take 1 tablet by mouth daily (with breakfast). [facility] naproxen (NAPROSYN) 500 mg tablet 2017-09-01 00:00:00 Yes Arthralgia, unspecified joint 500mg Take 1 tablet by mouth 2 times daily (with meals). [facility] NIFEdipine (PROCARDIA XL) 30 mg extended release tablet 2017-09-01 00:00:00 Yes Essential hypertension 30mg Q.5D Take 1 tablet by mouth 2 times daily NEW DOSING TWICE DAILY. [facility] tiZANidine (ZANAFLEX) 4 mg tablet 2017-09-01 00:00:00 Ye s Spasm of muscle 4mg Take 1 tablet by mouth nightly at bedtime as nee ded for Muscle Spasms. [facility] lactulose (CONSTULOSE) 10 gram/15 mL oral solution 2017-08 00:00:00 Yes Slow transit constipation 20g Take 30 mL by mouth 3 ti mes daily. [facility] tramadol hydrochloride 50 MG Oral Tablet 2017-07-26 04:02:00 No 50 mg = 1 tab, PO, Q8H, PRN Pain, X 5 day, # 24 tab, 0 Refill(s) [facility] Glipizide 2017-07-26 03:09:00 Yes 10 mg, PO, BID, 0 Refill(s) [facility] Hydralazine 2017-07-26 03:09:00 Yes 25 mg, P O, BID, 0 Refill(s) [facility] atorvastatin 2017-07-26 03:08:00 Yes 40 mg, PO, Bedtime, 0 Refill(s) [facility] Tramadol 2017-07-26 03:06:00 Yes 50 mg, PO, PRN, 0 Refill(s) Steve Michele metoprolol tartrate 50 mg oral tablet 2017-07-26 03:06:00 Y es 50 mg = 1 tab, PO, BID, 0 Refill(s) [facility] Donal lombardo tramadol hydrochloride 50 MG Oral Tablet 2017-07-26 02:25:00 No 50 mg, Route: PO, Drug form: TAB, ONCE, Dosing Weight 84.091, kg, Priority: STAT, Start date: 07/25/17 21:25:00 CDT, Stop date: 07/25/17 21:25:00 CDT [facility] amLODIPine (NORVASC) 10 mg tablet 2017-05-01 00:00:00 Yes Essential hypertension 10mg QD Take 1 tablet by mouth daily. [facility] metoprolol tartrate (LOPRESSOR) 50 mg tablet 2017-04-17 00:0 0:00 Yes Essential hypertension 50mg Q.5D Take 1 tablet by mouth 2 times buffy y. [facility] hydrALAZINE (APRESOLINE) 25 mg tablet 2017-04-17 00:00:00 Yes Essential hypertension 25mg Q.5D Take 1 tablet by mouth 2 times daily. [facility] ondansetron (ZOFRAN) 4 mg tablet 2017-04-17 00:00:00 Yes Nausea 4mg Take 1 tablet by mouth every 8 hours as needed for Nausea. [facility] naproxen (NAPROSYN) 500 mg tablet 2017-01-31 00:00:00 2019 00:00:00 No Bilateral low back pain with sciatica, s ciatica laterality unspecified, unspecified chronicity 500mg Take 1 tablet by mouth 2 times daily (with meals). [facility] traMADol (ULTRAM) 50 mg tablet 2017-01-19 00:00:00 Yes Arthralgia of both lower legs 50mg Take 1 tablet by mouth every 8 hours as needed for Pain. [facility] Cephalexin 500 MG Oral Capsule [Keflex] 2016-10-19 21:17:00 Yes 500 mg = 1 cap, PO, BID, X 10 day, # 20 cap, 0 Refill(s) [facility] Sodium Chloride 0.154 MEQ/ML Injectable Solution 2016-10-19 20:0 7:00 No 1,000 mL, 1000 ml/hr, Infuse Over: 1 hr, Route: IV, 1,000, Drug form: INJ, ONCE, Priority: STAT, Dosing Weight 91.818 kg, Start date: 10/19/16 15:07:00 CDT, Duration: 1 doses or times, Stop date: 10/19/16 15:07:00 CDT [facility] Pyridium 2016-10-19 20:06:00 No Notes: Give with meals. (Same as: Pyridium) [facility] Ceftriaxone 2016-10-19 20:06:00 No Notes: (Same As: Rocephin). Use with 100 mL NS and infuse over 30 min MEDICATION WASTE Product Size: 2000 mg Product Wasted: ___ mg [facility] Saline Flush 0.9% 2016-10-19 17:40:00 No Notes: (Same as: BD Posiflush) [facility] Glipizide-Metformin 5-500 mg per tablet 2016-09-23 00:00:00 Yes Type 2 diabetes mellitus with hyperglycemia, without long-term current use of insulin 2{tbl} Q.5D Take 2 tablets by mouth 2 times daily (before meals). [facility] lisinopril (ZESTRIL) 40 mg tablet 2016-09-23 00:00:00 Yes Essential hypertension with goal blood pressure less than 130/85 40mg QD Take 1 tablet by mouth daily. [facility] gabapentin (NEURONTIN) 600 mg tablet 2016-09-23 00:00:00 Yes Neuropathic pain syndrome (non-herpetic) 600mg Take 1 tablet by mouth 3 time s daily. [facility] NIFEdipine (PROCARDIA XL) 90 mg extended release tablet 2016-09-23 00:00:00 Yes Essential hypertension with goal blood pressure less t claudio 130/85 90mg QD Take 1 tablet by mouth daily. [facility] amLODIPine (NORVASC) 10 mg tablet 2016-08-31 00:00:00 Yes Essential hypertension 10mg QD Take 1 tablet by mouth daily. [facility] blood glucose (PRECISION XTRA TEST STRIPS) test strips 2016-03-21 00:00:00 Yes Type 2 diabetes mellitus wit h hyperglycemia, without long-term current use of insulin 1{each} 1 Each by MISCELLANEOUS route 2 times weekly. [facility] lancets 30 gauge Misc 2016-03-21 00:00:00 Yes Type 2 diabetes mellitus with hyperglycemia, without long-term current use of insulin 100{each} 100 Each by [facility]Non-Drug; Combo Route) route 2 times weekly. [facility] pioglitazone (ACTOS) 30 mg tablet 2016-03-18 00:00:00 Yes Type 2 diabetes mellitus with hyperglycemia, without long-term current use of insulin 30mg QD Take 1 tablet by mouth daily. [facility] BLOOD GLUCOSE METER monitoring kit 2016-03-18 00:00:00 Yes Type 2 diabetes mellitus with hyperglycemia, without long-term current use of insulin CHECK BLOOD GLUCOSE TWICE WEEKLY. [facility] Docusate Sodium 100 MG Oral Capsule [Colace] 2016-02-18 19:36:00 Yes 100 mg = 1 cap, PO, BID, PRN Constipation, # 20 cap, 0 Refill(s) [facility] Acetaminophen 300 MG / Codeine Phosphate 30 MG Oral Tablet [Tylenol with Codeine #3] 2016-02-18 19:36:00 No 1 - 2 tab, PO, Q4H, PRN Pain, X 2 day, # 20 tab, 0 Refill(s) [facility] Sodium Chloride 0.154 MEQ/ML Injectable Solution 2016-02-18 18:3 8:00 No 1,000 mL, 2,000 ml/hr, Infus e Over: 30 minutes, Route: IV, ONCE, Priority: STAT, Dosing Weight 91.818 kg, Start date: 02/18/16 13:38:00 CDT, Duration: 1 doses or times, Stop date: 02/18/16 13:38:00 CDT [facility] Saline Flush 0.9% 2016-02-18 18:38:00 No Notes: (Same as: BD Posiflush) [facility] Morphine 2016-02-18 18:38:00 No 4 mg, Route: IVP, ONCE, Dosing Weight 91.818, kg, Priority: STAT, Start date: 02/18/16 13:38:00 CDT, Stop date: 02/18/16 13:38:00 CDT [facility] Ondansetron 2016-02-18 18:38:00 No 4 mg, Route: IVP, ONCE, Dosing Weight 91.818, kg, Priority: STAT, Start date: 02/18/16 13:38:00 CDT, Stop date: 02/18/16 13:38:00 CDT [facility] lactulose (CONSTULOSE) 10 gram/15 mL oral solution 2015-08 00:00:00 Yes Slow transit constipation 20g Take 30 mL by mouth 3 ti mes daily. [facility] ergocalciferol (VITAMIN D2) 50,000 unit capsule 2015-02-24 0 0:00:00 Yes Vitamin D deficiency 46134O Take 1 capsule by mouth weekly. [facility] ferrous sulfate (FEOSOL) 325 mg (65 mg iron) tablet 2014-05 00:00:00 Yes Other iron deficiency anemia 325mg QD Jay e 1 tablet by mouth daily (with breakfast). [facility] glyBURIDE-metFORMIN (GLUCOVANCE) 5-500 mg per tablet 2 00:00:00 Yes DM type 2 (diabetes mellitus, type 2) 2{tbl} Take 2 tablets by mouth 2 times daily (with meals). [facility] ciprofloxacin (CIPRO) 500 mg tablet 2013-10-22 00:00:00 Yes UTI (Lower Urinary Tract Infection) 500mg Q.5D Take 1 tablet by mouth 2 times da ethel. [facility] Vicodin 5/500 oral tablet 2012-09-07 17:00:05 Yes Roger Zayas Freet 1 tab, PO, Q6H, 30 tab, Substitution Allowed, Maintenance [facility] naloxone 2012-09-07 15:30:00 No Pito Vijay Hemmad 0.04 mg, 0.1 mL, Route: IVP, Drug form: INJ, Q2MIN, Dosing Weight 83.182, kg, PRN Narcotic Reversal, Start date: 09/07/12 10:30:00, Duration: 8 doses or times, Stop date: 09/08/12 0:00:00 [facility] flumazenil 2012-09-07 15:30:00 No Pito Vijay Hemmad 0.2 mg, 2 mL, Route: IVP, Drug form: INJ, PRN, Dosing Weight 83.182, kg, PRN Benzodiazepine Reversal, Initial dose, Start date: 09/07/12 10:30:00, Duration: 30 day, Stop date: 10/07/12 10:29:00 [facility] ondansetron 2012-09-07 15:30:00 No Pito Vijay Hemmad 4 mg, 2 mL, Route: IVP, Drug form: INJ, ONCE, Dosing Weight 83.182, kg, PRN Nausea & Vomiting, Start date: 09/07/12 10:30:00 [facility] acetaminophen-hydrocodone 325 mg-10 mg/15 mL oral solution 2012-09-07 15:30:00 No Pito Vijay Hemmad 1 5 mL, Route: PO, Drug Form: SOLN, Dosing Weight 83.182, kg, Q6H, PRN Pain, Start date: 09/07/12 10:30:00, Duration: 30 day, Stop date: 10/07/12 10:29:00 [facility] labetalol 2012-09-07 15:30:00 No Pito Vijay Hemmad 5 mg, 1 mL, Route: IVP, Drug form: INJ, Q5Min, Dosing Weight 83.182, kg, PRN Elevated BP, Start date: 09/07/12 10:30:00, Duration: 5 doses or times, Stop date: 09/08/12 0:00:00 [facility] tetanus-diphtheria toxoids adult intramuscular suspension 2012-06-02 20:10:00 No Vanessa Claudiozik 0.5 ml, Route: IM, Dosing Weight 82.727, kg, ONCE, STAT, Start date: 06/02/12 14:10:00, Stop date: 06/02/12 14:10:00 [facility] tetracycline 500 mg capsule 2010-11-23 00:00:00 Yes Skin infection 500mg Q.5D Take 1 Cap by mouth 2 times daily. [facility] Omeprazole 40 mg capsule 2010-11-23 00:00:00 Yes GERD (gastroesophageal reflux disease) 40mg QD Take 1 Cap by mouth daily. [facility] ibuprofen (MOTRIN) 800 mg tablet 2010-11-23 00:00:00 Yes Joint pain 800mg Take 1 Tab by mouth every 8 hours as needed for Pain. [facility] LANCETS 2008-09-03 00:00:00 Yes Diabetes david litus type II, uncontrolled use as directed for home glucose monitoring [facility] PRECISION XTRA TEST STRIPS 2008-09-03 00:00:00 Yes Diabetes mellitus type II, uncontrolled use as directed for home glucose monitori ng [facility] Amitriptyline Hcl Amitriptyline Hcl Yes 25 [facility] y [facility] Atorvastatin Calcium Atorvastatin Calcium Yes 40 Bedtime [facility] Calcitriol Calcitriol Yes .5 Daily [facility] Furosemide Furosemide Yes 40 Daily [facility] Glipizide Glipizide Yes 10 Daily [facility] Hydralazine Hcl Hydralazine Hcl Yes 50 Daily [facility] Metformin Hcl Metformin Hcl Yes 500 Twice A Day [facility] Potassium Chloride Potassium Chloride Yes 20 Da ethel [facility] Immunizations Ordered Immunization Name Filled Immunization Name Date Status Comments Source Hepatitis B Pedi/Adol 2017-12-26 00:00:00 Completed [facility] Herpes Zoster Vaccine In Clinic 2017-11-28 00:00:[address] [facility] Hepatitis B Pedi/Adol 2017-11-28 00:00:00 [facility] PCV 13 (Pnuemococcal Conjugated 13 Valent) 2017-01-31 00:0 0:00 [facility] Tdap Tetanus, diphtheria, acellular pertussis Vaccine 2014-12-30 00:00:00 [facility] Influenza Vaccine 2006-03-27 00:00:00 [facility] PPV 23 Pneumococcal Polysaccaride 2005-05-25 00:00:00 Comp Located within [facility] PPV 23 Pneumococcal Polysaccaride 2001-09-05 00:00:00 [facility] Vital Signs Vital Name Observation Time Observation Value Comments Source Weight 2020-02-07 14:28:00 185 [lb_av] [facility] BMI (Body Mass Index) 2020-02-07 14:28:00 23.1 kg/m2 [facility] Body Temperature 2020-02-06 19:20:00 97.5 [degF] [facility] Body Temperature 2020-02-06 17:33:00 98.0 [degF] [facility] BMI (Body Mass Index) 2020-02-02 05:00:00 23.1 kg/m2 [facility] Weight 2020-02-01 12:06:00 185 [lb_av] [facility] Body Temperature 2020-01-31 09:00:00 98.6 [degF] [facility] BMI (Body Mass Index) 2020-01-27 17:12:00 33.2 kg/m2 [facility] Weight 2020-01-27 11:11:00 170 [lb_av] [facility] Systolic blood pressure 2019-08-29 10:34:45 109 mm[Hg] [facility] Diastolic blood pressure 2019-08-29 10:34:45 53 mm[Hg] [facility] Heart rate 2019-08-29 10:34:45 72 /min [facility] Body temperature 2019-08-29 10:34:45 36.33 [facility] Respiratory rate 2019-08-29 10:34:45 16 /min [facility] Oxygen saturation in Arterial blood by Pulse oximetry 08-28 10:34:45 100 /min [facility] Body height 2019-08-28 20:04:00 157.5 cm [facility] Body weight 2019-08-28 20:04:00 82.2 kg [facility] BMI 2019-08-28 20:04:00 33.15 kg/m2 [facility] Systolic blood pressure 2019-07-19 09:42:00 146 mm[Hg] manual [facility] Diastolic blood pressure 2019-07-19 09:42:00 60 mm[Hg] manual [facility] Heart rate 2019-07-19 09:36:00 89 /min [facility] Body temperature 2019-07-19 09:36:00 36.61 [facility] Respiratory rate 2019-07-19 09:36:00 19 /min [facility] Body height 2019-07-19 09:36:00 157.9 cm [facility] weight 2019-07-19 09:36:00 78.79 kg [facility] BMI 2019-07-19 09:36:00 31.60 kg/m2 [facility] Temperature Oral (F) 2018-08-25 13:00:00 97.6 F [facility] Heart Rate 2018-08-25 13:00:00 [facility] Respitory Rate 2018-08-25 13:00:00 [place] [facility] [place] Systolic (mm Hg) 2018-08-25 13:00:00 [place] [facility] Diastolic (mm Hg) 2018-08-25 13:00:00 [facility] [place] Systolic (mm Hg) 2018-08-25 09:00:00 [facility] Diastolic (mm Hg) 2018-08-25 09:00:00 [facility] Respitory Rate 2018-08-25 09:00:00 [facility] Heart Rate 2018-08-25 09:00:00 [facility] Temperature Oral (F) 2018-08-25 09:00:00 98.1 F [facility] Systolic (mm Hg) 2018-08-25 05:00:00 [facility] Diastolic (mm Hg) 2018-08-25 05:00:00 [facility] Respitory Rate 2018-08-25 05:00:00 [facility] Heart Rate 2018-08-25 05:00:00 [facility] Temperature Oral (F) 2018-08-25 05:00:00 98.2 F [facility] Weight 2018-08-24 10:14:00 [facility] BMI Calculated 2018-08-24 10:14:00 [facility] Height 2018-08-24 10:14:00 157.48 cm [facility] Weight 2018-08-24 02:54:00 [facility] BMI Calculated 2018-08-24 02:54:00 [facility] [place] Height 2018-08-24 02:54:00 157.48 cm [facility] Heart Rate 2017-07-26 05:04:00 [facility] Respitory Rate 2017-07-26 05:04:00 [facility] Systolic (mm Hg) 2017-07-26 05:04:00 [facility] Diastolic (mm Hg) 2017-07-26 05:04:00 [facility] Heart Rate 2017-07-26 00:29:00 [facility] Systolic (mm Hg) 2017-07-26 00:29:00 [facility] Diastolic (mm Hg) 2017-07-26 00:29:00 [facility] Respitory Rate 2017-07-26 00:29:00 [facility] [place] Weight 2017-07-25 20:25:00 [facility] BMI Calculated 2017-07-25 20:25:00 [facility] Height 2017-07-25 20:25:00 157.48 cm [facility] Respitory Rate 2017-07-25 20:25:00 [facility] Heart Rate 2017-07-25 20:25:00 [facility] Systolic (mm Hg) 2017-07-25 20:25:00 [facility] Diastolic (mm Hg) 2017-07-25 20:25:00 [facility] Systolic (mm Hg) 2016-10-19 21:35:00 [place] [facility] [place] Diastolic (mm Hg) 2016-10-19 21:35:00 [facility] [place] Temperature Oral (F) 2016-10-19 21:35:00 98.1 F [facility] Respitory Rate 2016-10-19 21:35:00 [facility] Respitory Rate 2016-10-19 19:33:00 [facility] Systolic (mm Hg) 2016-10-19 19:33:00 [facility] Diastolic (mm Hg) 2016-10-19 19:33:00 [facility] [place] Systolic (mm Hg) 2016-10-19 18:35:00 [place] [facility] [place] Diastolic (mm Hg) 2016-10-19 18:35:00 [facility] [place] Respitory Rate 2016-10-19 18:35:00 [facility] [place] BMI Calculated 2016-10-19 17:37:00 [facility] Height 2016-10-19 17:37:00 157.48 cm [facility] Temperature Oral (F) 2016-10-19 17:37:00 98.9 F [facility] Heart Rate 2016-10-19 17:37:00 [facility] Weight 2016-10-19 17:37:00 [facility] Respitory Rate 2016-02-18 20:01:00 [facility] Heart Rate 2016-02-18 20:01:00 [facility] Systolic (mm Hg) 2016-02-18 20:01:00 [place] [facility] [place] Diastolic (mm Hg) 2016-02-18 20:01:00 [facility] Temperature Oral (F) 2016-02-18 20:01:00 98.2 F [facility] Height 2016-02-18 18:27:00 157.48 cm [facility] Weight 2016-02-18 18:27:00 [facility] Respitory Rate 2016-02-18 18:27:00 [facility] Temperature Oral (F) 2016-02-18 18:27:00 98.4 F [facility] BMI Calculated 2016-02-18 18:27:00 [facility] [place] Systolic (mm Hg) 2016-02-18 18:27:00 [place] [facility] [place] Diastolic (mm Hg) 2016-02-18 18:27:00 [facility] [place] Heart Rate 2016-02-18 18:27:00 [facility] Respitory Rate 2012-09-07 16:20:00 [facility] Systolic (mm Hg) 2012-09-07 16:20:00 [place] [facility] [place] Diastolic (mm Hg) 2012-09-07 16:20:00 [facility] [place] Diastolic (mm Hg) 2012-09-07 16:15:00 [facility] Systolic (mm Hg) 2012-09-07 16:15:00 [place] [facility] [place] Respitory Rate 2012-09-07 16:15:00 [facility] [place] Systolic (mm Hg) 2012-09-07 16:00:00 [place] [facility] [place] Diastolic (mm Hg) 2012-09-07 16:00:00 [facility] Respitory Rate 2012-09-07 16:00:00 [facility] [place] Heart Rate 2012-09-07 11:02:00 [facility] Weight 2012-09-07 11:01:00 [facility] Height 2012-09-07 11:01:00 160.02 cm [facility] Weight 2012-08-05 22:36:00 [facility] Height 2012-08-05 22:36:00 160.02 cm [facility] Procedures Procedure Date / Time Performed Performing Clinician [facility] e CT of abdomen and pelvis without contrast 2020-02-01 00:00:00 [facility] Complete non-obstetrical ultrasound of pelvis 2020-01-30 00:00:[address] [facility] [address] of abdomen and pelvis without contrast 2020-01-27 00:00:00 [facility] POC GLUCOSE 2019-08-29 11:04:00 Zoey Jc POC GLUCOSE 2019-08-29 06:21:00 Rigo Leung [facility] COMPLETE BLD COUNT W/AUTO DIFF 2019-08-29 05:56:00 [facility] BASIC METABOLIC PANEL 2019-08-29 05:56:00 dio Melissa [facility] ESTIMATED GFR 2019-08-29 05:56:00 Melissa Sellers [facility]add[facility] TROPONIN 2019-08-29 02:03:00 ChenmodeMelissa odaddison HEPATITIS B SURFACE ANTIGEN 2019-08-28 23:00:00 Jose Antonio Nelson HEPATITIS B SURFACE AB, QUANTITATIVE 2019-08-28 23:00:00 Jose Antonio Nelson POC GLUCOSE 2019-08-28 21:06:00 Rigo Leung Quinten white CT HEAD WO CONTRAST 2019-08-28 20:51:52 dio Melissademetri Alonso B NATRIURETIC PEPTIDE 2019-08-28 20:34:00 [facility] COMPLETE BLD COUNT W/AUTO DIFF 2019-08-28 20:34:00 Jan Sellers [facility] COMPREHENSIVE METABOLIC PANEL 2019-08-28 20:34:00 Melissa Sellers Quinten [facility] LIPID PANEL 2019-08-28 20:34:00 Melissa Sellers odaddison PROTHROMBIN TIME WITH INR 2019-08-28 20:34:00 dioMissydemetri pascal [facility] TROPONIN 2019-08-28 20:34:00 dioMelissa odist ESTIMATED GFR 2019-08-28 20:34:00 Melissa Sellers odist ECG 12-LEAD 2019-08-28 20:20:32 Melissa Sellers [place] Vic odist CBC (WITHOUT DIFFERENTIAL) 2019-07-22 13:11:00 El Jung [facility] LIPID PROFILE 2019-07-22 13:11:00 Moises Jung [facility] LIVER PROFILE 2019-07-22 13:11:00 Moises Jung [facility] UREA NITROGEN/CREATININE 2019-07-22 13:11:00 Moises Jung [facility] ELECTROLYTES 2019-07-22 13:11:00 Moises Jung [facility] GLUCOSE, FASTING 2019-07-22 13:11:00 Moises Jung Harri s [facility] HEMOGLOBIN A1C 2019-07-22 13:11:00 Moises Jung [facility] URINALYSIS 2019-07-22 13:11:00 Moises Jung [facility] URINALYSIS MICROSCOPIC-REFLEX 2019-07-22 13:11:00 Colten Jung [facility] OPHTHALMOLOGY RETINAL SCAN 2019-02-25 11:09:06 [facility] HEMOGLOBIN A1C 2019-02-25 10:43:00 Moises Jung [facility] DIABETIC FOOT EXAM 2019-02-25 08:20:00 Moises Jung [facility] Anesthesia for vaginal hysterectomy [facility] section [facility] Anesthesia for vaginal hysterectomy [facility] section [facility] Plan of Care Planned Activity Planned Date Details Comments Source Future Scheduled Test 2020-07-21 00:00:00 Hemoglobin A1c juancarlos surement (procedure) [code = 87589862] [facility] Scheduled Test 2020-02-26 00:00:00 DM Foot Exam (Year ly) [code = DM Foot Exam (Yearly)] [facility] Scheduled Test 2020-02-26 00:00:00 DM Retinal Exam (Y early) [code = DM Retinal Exam (Yearly)] [facility] Scheduled Test 2020-02-13 00:00:00 IMM Influenza Seas onal Feb to July (>/= 19 yrs) [code = IMM Influenza Seasonal Feb to July (>/= 19 yrs)] [facility] Scheduled Test 2020-01-14 00:00:00 INFLUENZA VACCINE (#1) [code = INFLUENZA VACCINE (#1)] [facility] Scheduled Test 2019-12-14 00:00:00 INFLUENZA VACCINE [code = INFLUENZA VACCINE] [facility] Scheduled Test 2019-08-18 00:00:00 Screening for shayla gnant neoplasm of colon (procedure) [code = 160197704] [facility] Scheduled Test 2019-07-24 00:00:00 Breast Cancer Scrn (Yearly) [code = Breast Cancer Scrn (Yearly)] [facility] Scheduled Test 2019-05-16 00:00:00 MEDICARE ANNUAL WE LLNESS (YEAR 2 or FIRST YEAR if no IPPE) [code = MEDICARE ANNUAL WELLNESS (YEAR 2 or FIRST YEAR if no IPPE)] [facility] Future Scheduled Test 2019 00:00:00 Screening for shayla gnant neoplasm of colon (procedure) [code = 303978827] [facility] Future Scheduled Test 2018-11-07 00:00:00 Hemoglobin A1c juancarlos surement (procedure) [code = 18092075] [facility] 2018-10-20 00:00:00 PNEUMOCOCCAL 65+ H IGH/HIGHEST RISK (2 of 2 - PPSV23) [code = PNEUMOCOCCAL 65+ HIGH/HIGHEST RISK (2 of 2 - PPSV23)] [facility] Future Scheduled Test 2016 00:00:00 65+ PNEUMOCOCCAL V ACCINE (2 of 2 - PPSV23) [code = 65+ PNEUMOCOCCAL VACCINE (2 of 2 - PPSV23)] [facility] Scheduled Test 2001 00:00:00 BREAST CANCER SCRE ENING [code = BREAST CANCER SCREENING] [facility] Scheduled Test 2001 00:00:00 COLONOSCOPY SCREEN ING [code = COLONOSCOPY SCREENING] [facility] Scheduled Test 2001 00:00:00 SHINGLES VACCINES (#1) [code = SHINGLES VACCINES (#1)] [facility] Scheduled Test 1961 00:00:00 DIABETIC FOOT EXAM [code = DIABETIC FOOT EXAM] [facility] Scheduled Test 1961 00:00:00 URINE MICROALBUMIN [code = URINE MICROALBUMIN] [facility] Scheduled Test 1961 00:00:00 DIABETIC EYE EXAM [code = DIABETIC EYE EXAM] [facility] r Future Scheduled Test 1961 00:00:00 Diabetic foot exam ination (regime/therapy) [code = 100471313] [facility] Future Scheduled Test 1961 00:00:00 Urine screening fo r protein (procedure) [code = 594447292] [facility] Future Scheduled Test 1951 00:00:00 DIABETIC RETINAL E YE EXAM [code = DIABETIC RETINAL EYE EXAM] [facility] Scheduled Test 1951 00:00:00 Screening for shayla nunes neoplasm of breast (procedure) [code = 938436187] [facility] Encounters Start Date/Time End Date/Time En[facility] ID Source 2020-02-07 14:25:00 2020-02-07 14:25:00 Registered Emergency Room [facility] [id number] [facility] 2020-02-01 13:41:00 2020-02-06 19:29:00 [facility] [id number] [facility] 2020-01-27 11:17:00 2020-01-31 11:05:00 Discharged In[facility] 1 [facility] [id number] [facility] 2019-08-28 00:00:00 2019-08-29 00:00:00 Outpatient Moses JC [facility] [id number] [facility] 2018-08-23 21:28:00 2018-08-25 12:07:00 Outpatient Bruce Huff [facility] [id number] 2018-08-24 00:50:00 2018-08-24 00:50:00 Outpatient E [facility] [id number] [facility] 2018-07-23 14:40:27 2018-07-23 14:40:[address] [facility] [id number] [facility] 2018-07-20 14:06:38 2018-07-20 14:06:[address] [facility] [id number] [facility] 2018-07-20 12:56:13 2018-07-20 12:56:[address] [facility] [id number] [facility] 2018-03-19 00:00:00 2018-03-19 00:00:[address] [facility] [id number] [facility] 2018-03-19 00:00:00 2018-03-19 00:00[facility] [facility] [facility] [id number] [facility] 2018-03-14 00:00:00 2018-03-14 00:00:[address] [facility] [id number] [facility] 2018-03-04 00:00:00 2018-03-04 00:00:[address] [facility] [id number] [facility] 2018-02-07 00:00:00 2018-02-07 00:00:[address] [facility] [id number] [facility] 2018-02-07 00:00:00 2018-02-07 00:00:[address] [facility] [id number] [facility] 2018-02-05 00:00:00 2018-02-05 00:00:[address] [facility] [id number] [facility] 2018-01-29 07:53:08 2018-01-29 07:53:[address] [facility] [id number] [facility] 2018-01-29 00:00:00 2018-01-29 00:00:[address] [facility] [id number] [facility] 2018-01-24 00:00:00 2018-01-24 00:00:[address] [facility] [id number] [facility] 2018-01-24 00:00:00 2018-01-24 00:00:[address] [facility] [id number] [facility] 2018-01-23 09:47:01 2018-01-23 09:47:[address] [facility] [id number] [facility] 2018-01-16 00:00:00 2018-01-16 00:00:[address] [facility] [id number] [facility] 2018-01-02 00:00:00 2018-01-02 00:00:[address] [facility] [id number] [facility] 2018-01-01 09:32:06 2018-01-01 09:32:[address] [facility] [id number] [facility] 2017-12-28 00:00:00 2017-12-28 00:00:[address] [facility] [id number] [facility] 2017-12-26 09:01:27 2017-12-26 09:01:[address] [facility] [id number] [facility] 2017-11-30 00:00:00 2017-11-30 00:00:[address] [facility] [id number] [facility] 2017-11-30 00:00:00 2017-11-30 00:00:[address] [facility] [id number] [facility] 2017-11-28 08:25:32 2017-11-28 08:25:[address] [facility] [id number] [facility] 2017-10-31 07:32:00 2017-10-31 23:59:00 Outpatient Jose Antonio Nelson OIB OIB [id number] 2017-09-05 08:42:29 2017-09-05 08:42:[address] [facility] [id number] [facility] 2017-09-05 08:19:56 2017-09-05 08:19:[address] [facility] [id number] [facility] 2017-09-01 12:46:59 2017-09-01 12:46:[address] [facility] [id number] [facility] 2017-08-03 09:58:11 2017-08-03 09:58:[address] [facility] [id number] [facility] 2017-08-02 11:44:52 2017-08-02 11:44:[address] [facility] [id number] [facility] 2017-07-25 15:07:00 2017-07-26 00:06:00 Outpatient Mark Redding [facility] [id number] 2017-03-02 00:00:00 2017-03-02 00:00:[address] [facility] [id number] [facility] 2017-02-16 00:00:00 2017-02-16 00:00:[address] [facility] [id number] [facility] 2017-01-31 14:18:37 2017-01-31 14:18:[address] [facility] [id number] [facility] 2016-10-19 12:24:00 2016-10-19 16:38:00 [id number] 2016-02-18 13:19:00 2016-02-18 15:05:00 [facility] [id number] Results Test Description Test Time Test Comments Results Result Comments Source Capillary blood glucose measurement by glucometer (mas s/volume) 2020-02-06 16:36:00 Test Item Bedside Glucose (test code = 78976-6) 142 70-120 Meter ID: [id number] [facility] by glu[facility] (mass/volume)2020-02-06 12:17:00* Test Item Value Reference Range Interpretation Comments Bedside Glucose (test code = 23337-3) 97 70-120 Meter ID: [id number] Medical CenterBlood leukocytes automated count (number/volume)2020-02-06 06:08:00* Test Item Value Reference Range Interpretation Comments White Blood Count (test code = 6690-2) 13.27 4.8-10.8 [facility]Bl[facility] erythrocytes automated count (number/volume)2020-02-06 06:08:00* Test Item Value Reference Range Interpretation Comments Red Blood Count (test code = 789-8) 3.26 3.6-5.1 [facility] CenterBlood hemoglobin measurement (moles/volume)2020-02-06 06:08:00* Test Item Value Reference Range Interpretation Comments Hemoglobin (test code = 48332-3) 8.8 12.0-16.0 [facility] CenterAutomated blood hematocrit (volume fraction)2020-02-06 06:08:00* Test Item Value Reference Range Interpretation Comments Hematocrit (test code = 4544-3) 27.1 34.2-44.1 [facility] CenterAutomated erythrocyte mean corpuscular knhewx7292-92-21 06:08:00* Test Item Value Reference Range Interpretation Comments Mean Corpuscular Volume (test code = 787-2) 83.1 81-99 [facility] CenterAutomated erythrocyte mean corpuscular hemoglobin (mass per erythrocyte)2020-02-06 06:08:00* Test Item Value Reference Range Interpretation Comments Mean Corpuscular Hemoglobin (test code = 785-6) 27.0 28-32 [facility] CenterAutomated erythrocyte mean corpuscular hemoglobin concentration measurement (mass/volume)2020-02-06 06:08:00* Test Item Value Reference Range Interpretation Comments Mean Corpuscular Hemoglobin Concent (test code = 786-4) 32.5 31-35 [facility] CenterRDW SmfLn-Sji0854-11-24 06:08:00* Test Item Value Reference Range Interpretation Comments Red Cell Distribution Width (test code = 37595-7) 17.3 11.7 -14.4 [facility] CenterAutomated blood platelet count (count/volume)2020-02-06 06:08:00* Test Item Value Reference Range Interpretation Comments Platelet Count (test code = 777-3) 283 140-360 [facility] CenterAutomated blood segmented neutrophil count as percentage of total bhtkykpsxf4212-11-35 06:08:00* Test Item Value Reference Range Interpretation Comments Neutrophils (%) (Auto) (test code = 96049-7) 75.3 38.7-80.0 [facility] CenterAutomated blood lymphocyte count as percentage ot total nphrsizmaq4727-63-67 06:08:00* Test Item Value Reference Range Interpretation Comments Lymphocytes (%) (Auto) (test code = 736-9) 13.8 18.0-39.1 [facility] CenterAutomated blood monocyte count as percentage of total vbyayzkqfh8817-51-82 06:08:00* Test Item Value Reference Range Interpretation Comments Monocytes (%) (Auto) (test code = 5905-5) 7.8 4.4-11.3 [facility] CenterAutreplaced by [facility] blood eosinophil count as percentage of total rjvaxjpobd8506-06-59 06:08:00* Test Item Value Reference Range Interpretation Comments Eosinophils (%) (Auto) (test code = 713-8) 2.1 0.0-6.0 [facility] CenterAutomated blood basophil count as percentage of total egtenjzzgl6939-98-07 06:08:00* Test Item Value Reference Range Interpretation Comments Basophils (%) (Auto) (test code = 706-2) 0.5 0.0-1.0 [facility] CenterFluoroscopic procedure less than one hour roozoopj8098-24-62 06:08:00* Test Item Value Reference Range Interpretation Comments IM GRANULOCYTES % (test code = IM GRANULOCYTES %) 0.5 0.0- 1.0 [facility] CenterAutomated blood neutrophil count 2020-02-06 06:08:00* Test Item Value Reference Range Interpretation Comments Neutrophils # (Auto) (test code = 751-8) 10.0 2.1-6.9 [facility] CenterBlood lymphocytes count (number/volume) 2020-02-06 06:08:00* Test Item Value Reference Range Interpretation Comments Lymphocytes # (Auto) (test code = 05112-8) 1.8 1.0-3.2 [facility] CenterBlood monocytes automated count (number/volume)2020-02-06 06:08:00* Test Item Value Reference Range Interpretation Comments Monocytes # (Auto) (test code = 742-7) 1.0 0.2-0.8 [facility] CenterAutomated blood eosinophil count 2020-02-06 06:08:00* Test Item Value Reference Range Interpretation Comments Eosinophils # (Auto) (test code = 711-2) 0.3 0.0-0.4 [facility] CenterAutomated blood basophil count (count/volume)2020-02-06 06:08:00* Test Item Value Reference Range Interpretation Comments Basophils # (Auto) (test code = 704-7) 0.1 0.0-0.1 [facility] CenterFluoroscopic procedure less than one hour ccxxtqdi3437-75-99 06:08:00* Test Item Value Reference Range Interpretation Comments Absolute Immature Granulocyte (auto (dae t code = Absolute Immature Granulocyte (auto) 0.07 0-0.1 [facility] sodium measurement (moles/volume)2020-02-06 06:08:00* Test Item Value Reference Range Interpretation Comments Sodium Level (test code = 2951-2) 145 136-145 [facility]ere[facility] plasma potassium measurement (moles/volume)2020-02-06 06:08:00* Test Item Value Reference Range Interpretation Comments Potassium Level (test code = 2823-3) 3.7 3.5-5.1 [facility]ere[facility] or plasma chloride measurement (moles/volume)2020-02-06 06:08:00* Test Item Value Reference Range Interpretation Comments Chloride Level (test code = 2075-0) 97 98-107 [facility]ererum or plasma carbon dioxide, total measurement (moles/volume)2020-02-06 06:08:00* Test Item Value Reference Range Interpretation Comments Carbon Dioxide Level (test code = 2028-9) 18 22-29 [facility]ererum or plasma anion ywz1330-67-71 06:08:00* Test Item Value Reference Range Interpretation Comments Anion Gap (test code = 41133-2) 33.7 8-16 [facility]ere[facility] or plasma urea nitrogen measurement (mass/volume)2020-02-06 06:08:00* Test Item Value Reference Range Interpretation Comments Blood Urea Nitrogen (test code = 3094-0) 50 7-26 [facility]ererum or plasma creatinine measurement (mass/volume)2020-02-06 06:08:00* Test Item Value Reference Range Interpretation Comments Creatinine (test code = 2160-0) 8.07 0.57-1.11 [facility]ererum or plasma urea nitrogen/creatinine mass hxzuq3690-35-32 06:08:00* Test Item Value Reference Range Interpretation Comments BUN/Creatinine Ratio (test code = 3097-3) 6 6-25 [facility] CenterEstimated glomerular filtration rate (GFR) lnrqjmxmfnkss8405-51-17 06:08:00* Test Item Value Reference Range Interpretation Comments Estimat Glomerular Filtration Rate (test code = 057003551) 5 >60 Ranges were taken from the National Kidney Disease Education Program and the [facility] literature.Reference ranges:60 or greater: Gnpnoz32-74 ( for 3 consecutive months): Chronic kidney disease 15 or less: Kidney failureDallas Medical CenterGlucose ncvkzlgdywt1838-64-96 06:08:00* Test Item Value Reference Range Interpretation Comments Glucose Level (test code = ALJ6685) 112 74-118 [facility]ere[facility] or plasma calcium measurement (mass/volume)2020-02-06 06:08:00* Test Item Value Reference Range Interpretation Comments Calcium Level (test code = 01342-4) 7.6 8.4-10.2 [facility] CenterPhosphorus bmniruuylan2757-41-81 06:08:00 * Test Item Value Reference Range Interpretation Comments Phosphorus Level (test code = VEQ8556) 5.6 2.3-4.7 [facility]ererum or plasma magnesium measurement (mass/volume)2020-02-06 06:08:00* Test Item Value Reference Range Interpretation Comments Magnesium Level (test code = 74349-6) 1.5 1.3-2.1 [facility] CenterBlnorthwest medical center leukocytes automated count (number/volume)2020-02-06 06:08:00* Test Item Value Reference Range Interpretation Comments White Blood Count (test code = 6690-2) 13.27 4.8-10.8 [facility] CenterBlnorthwest medical center erythrocytes automated count (number/volume)2020-02-06 06:08:00* Test Item Value Reference Range Interpretation Comments Red Blood Count (test code = 789-8) 3.26 3.6-5.1 [facility] CenterBlnorthwest medical center hemoglobin measurement (moles/volume)2020-02-06 06:08:00* Test Item Value Reference Range Interpretation Comments Hemoglobin (test code = 79003-2) 8.8 12.0-16.0 [facility] CenterAutomated blood hematocrit (volume fraction)2020-02-06 06:08:00* Test Item Value Reference Range Interpretation Comments Hematocrit (test code = 4544-3) 27.1 34.2-44.1 [facility] CenterAutomated erythrocyte mean corpuscular iylkmi6808-38-77 06:08:00* Test Item Value Reference Range Interpretation Comments Mean Corpuscular Volume (test code = 787-2) 83.1 81-99 [facility] CenterAutomated erythrocyte mean corpuscular hemoglobin (mass per erythrocyte)2020-02-06 06:08:00* Test Item Value Reference Range Interpretation Comments Mean Corpuscular Hemoglobin (test code = 785-6) 27.0 28-32 [facility] CenterAutomated erythrocyte mean corpuscular hemoglobin concentration measurement (mass/volume)2020-02-06 06:08:00* Test Item Value Reference Range Interpretation Comments Mean Corpuscular Hemoglobin Concent (test code = 786-4) 32.5 31-35 [facility] CenterRDW BsqCe-Wmx5412-62-24 06:08:00* Test Item Value Reference Range Interpretation Comments Red Cell Distribution Width (test code = 55656-1) 17.3 11.7 -14.4 [facility] CenterAutomated blood platelet count (count/volume)2020-02-06 06:08:00* Test Item Value Reference Range Interpretation Comments Platelet Count (test code = 777-3) 283 140-360 [facility] CenterAutomated blood segmented neutrophil count as percentage of total nskzntfwbm2574-63-39 06:08:00* Test Item Value Reference Range Interpretation Comments Neutrophils (%) (Auto) (test code = 14856-3) 75.3 38.7-80.0 [facility] CenterAutomated blood lymphocyte count as percentage ot total fuyetdqebi1707-91-46 06:08:00* Test Item Value Reference Range Interpretation Comments Lymphocytes (%) (Auto) (test code = 736-9) 13.8 18.0-39.1 [facility] CenterAutomated blood monocyte count as percentage of total imxcvozvsa5378-10-13 06:08:00* Test Item Value Reference Range Interpretation Comments Monocytes (%) (Auto) (test code = 5905-5) 7.8 4.4-11.3 [facility] CenterAutomated blood eosinophil count as percentage of total qydldbjzfr2904-88-45 06:08:00* Test Item Value Reference Range Interpretation Comments Eosinophils (%) (Auto) (test code = 713-8) 2.1 0.0-6.0 [facility] CenterAutomated blood basophil count as percentage of total inrbksfqmw2387-25-21 06:08:00* Test Item Value Reference Range Interpretation Comments Basophils (%) (Auto) (test code = 706-2) 0.5 0.0-1.0 [facility] CenterFluoroscopic procedure less than one hour nlikzyur3080-52-26 06:08:00* Test Item Value Reference Range Interpretation Comments IM GRANULOCYTES % (test code = IM GRANULOCYTES %) 0.5 0.0- 1.0 [facility] CenterAutomated blood neutrophil count 2020-02-06 06:08:00* Test Item Value Reference Range Interpretation Comments Neutrophils # (Auto) (test code = 751-8) 10.0 2.1-6.9 [facility] CenterBlood lymphocytes count (number/volume) 2020-02-06 06:08:00* Test Item Value Reference Range Interpretation Comments Lymphocytes # (Auto) (test code = 49110-4) 1.8 1.0-3.2 [facility] CenterBlood monocytes automated count (number/volume)2020-02-06 06:08:00* Test Item Value Reference Range Interpretation Comments Monocytes # (Auto) (test code = 742-7) 1.0 0.2-0.8 [facility] CenterAutomated blood eosinophil count 2020-02-06 06:08:00* Test Item Value Reference Range Interpretation Comments Eosinophils # (Auto) (test code = 711-2) 0.3 0.0-0.4 [facility] CenterAutomated blood basophil count (count/volume)2020-02-06 06:08:00* Test Item Value Reference Range Interpretation Comments Basophils # (Auto) (test code = 704-7) 0.1 0.0-0.1 [facility] CenterFluoroscopic procedure less than one hour vebyraiu6266-17-18 06:08:00* Test Item Value Reference Range Interpretation Comments Absolute Immature Granulocyte (auto (dae t code = Absolute Immature Granulocyte (auto) 0.07 0-0.1 [facility]ere[facility] or plasma sodium measurement (moles/volume)2020-02-06 06:08:00* Test Item Value Reference Range Interpretation Comments Sodium Level (test code = 2951-2) 145 136-145 [facility]ererum or plasma potassium measurement (moles/volume)2020-02-06 06:08:00* Test Item Value Reference Range Interpretation Comments Potassium Level (test code = 2823-3) 3.7 3.5-5.1 [facility]ere[facility] or plasma chloride measurement (moles/volume)2020-02-06 06:08:00* Test Item Value Reference Range Interpretation Comments Chloride Level (test code = 2075-0) 97 98-107 [facility]ererum or plasma carbon dioxide, total measurement (moles/volume)2020-02-06 06:08:00* Test Item Value Reference Range Interpretation Comments Carbon Dioxide Level (test code = 2028-9) 18 22-29 [facility]ererum or plasma anion suq0567-60-01 06:08:00* Test Item Value Reference Range Interpretation Comments Anion Gap (test code = 35159-3) 33.7 8-16 [facility]ere[facility] or plasma urea nitrogen measurement (mass/volume)2020-02-06 06:08:00* Test Item Value Reference Range Interpretation Comments Blood Urea Nitrogen (test code = 3094-0) 50 7-26 [facility]ererum or plasma creatinine measurement (mass/volume)2020-02-06 06:08:00* Test Item Value Reference Range Interpretation Comments Creatinine (test code = 2160-0) 8.07 0.57-1.11 [facility]ererum or plasma urea nitrogen/creatinine mass evlpz4074-93-41 06:08:00* Test Item Value Reference Range Interpretation Comments BUN/Creatinine Ratio (test code = 3097-3) 6 6-25 [facility] CenterEstimated glomerular filtration rate (GFR) soiyumajdrqfj5390-78-40 06:08:00* Test Item Value Reference Range Interpretation Comments Estimat Glomerular Filtration Rate (test code = 103336588) 5 >60 Ranges were taken from the National Kidney Disease Education Program and the [facility] Kidney Foundation literature.Reference ranges:60 or greater: Gjpngy76-80 ( for 3 consecutive months): Chronic kidney disease 15 or less: Kidney failureDallas Medical CenterGlucose qpcayirtqmq6702-50-30 06:08:00* Test Item Value Reference Range Interpretation Comments Glucose Level (test code = MXR1997) 112 74-118 [facility] or plasma calcium measurement (mass/volume)2020-02-06 06:08:00* Test Item Value Reference Range Interpretation Comments Calcium Level (test code = 11316-1) 7.6 8.4-10.2 [facility] CenterPhosphorus dhnymnmakar7960-81-81 06:08:00 * Test Item Value Reference Range Interpretation Comments Phosphorus Level (test code = NLH4574) 5.6 2.3-4.7 [facility]ere[facility] or plasma magnesium measurement (mass/volume)2020-02-06 06:08:00* Test Item Value Reference Range Interpretation Comments Magnesium Level (test code = 63215-3) 1.5 1.3-2.1 [facility] Centererum or plasma intact pararthyroid hormone measurement (mass/volume)2020-02-04 13:46:00* Test Item Value Reference Range Interpretation Comments Parathyroid Hormone (test code = 2731-8) 243 [facility]ererum or plasma calcium measurement (mass/volume)2020-02-04 13:46:00* Test Item Value Reference Range Interpretation Comments Calcium (Send out) (test code = 58417-3) 8.2 8.7-10.3 [facility] CenterFluoroscopic procedure less than one hour mklolcyo6552-56-94 13:46:00* Test Item Value Reference Range Interpretation Comments Parathyroid Hormone Interpretation (test code = Parathyroid Hormone Interpretation) Comment . Interpretation Intact PTH Calcium (pg/mL) (mg/dL)Normal 15 - 65 8.6 - 10.2Pr imary Hyperparathyroidism >65 >10.2Secondary Hyperparathyroidism >65 <10.2Non-Parathyroid Hypercalcemia <65 >10.2Hypoparathyroidism <15 < 8.6Non- Parathyroid Hypocalcemia 15 - 65 < 8.6Performed at: - [facility] [id number] Director: Shravan Moss MD, Phone: [phone] at: [facility] [id number] Director: Claudio Carter MD, Phone: [phone] Army Medical Centererum or plasma intact pararthyroid hormone measurement (mass/volume)2020-02-04 13:46:00* Test Item Value Reference Range Interpretation Comments Parathyroid Hormone (test code = 2731-8) 243 [facility]ererum or plasma calcium measurement (mass/volume)2020-02-04 13:46:00* Test Item Value Reference Range Interpretation Comments Calcium (Send out) (test code = 44515-5) 8.2 8.7-10.3 [facility] CenterFluoroscopic procedure less than one hour xjnzxahb3800-73-10 13:46:00* Test Item Value Reference Range Interpretation Comments Parathyroid Hormone Interpretation (test code = Parathyroid Hormone Interpretation) Comment . Interpretation Intact PTH Calcium (pg/mL) (mg/dL)Normal 15 - 65 8.6 - 10.2Pr imary Hyperparathyroidism >65 >10.2Secondary Hyperparathyroidism >65 <10.2Non-Parathyroid Hypercalcemia <65 >10.2Hypoparathyroidism <15 < 8.6Non- Parathyroid Hypocalcemia 15 - 65 < 8.6Performed at: - [facility] [id number] Director: Shravan Moss MD, Phone: [phone] at: - [facility] [id number] Director: Claudio Carter MD, Phone: [phone] [facility]HEPTOBILI[facility] W CTVAV8781-21-45 20:08:00 [place] [address] Patient Name: TAY HERNANDEZ MR #: [id number] : 1950 Age/Sex: 69/F Req #: [id number] Adm Physician: CHAYO ZAYAS MD Ordered by: CHAYO ZAYAS MD Report #: [id number] Location: [facility] Room/Bed: [facility] [place] Procedure: NM/HEPTOBILIARY W PHARM Exam Date: 02/03/20 [...] isconsidered to represent cl inical deficiency.Performed at: [employer] [address] [id number] Director: Shravan Moss MD, Phone: [phone] Army Medical Centererum or plasma folate measurement (mass/volume) 2020-02-03 08:47:00* Test Item Value Reference Range Interpretation Comments Folate (test code = 2284-8) 2.2 >3.0 A serum folate concentration of less than 3.1 ng/mL isconsidered to represent cl inical deficiency.Performed at: [employer] [address] [id number] Director: Shravan Moss MD, Phone: [phone] Medical CenterAutomated reticulocyte count as percentage of total tyvreibsbpoy3937-56-09 05:34:00* Test Item Value Reference Range Interpretation Comments Percent Reticulocyte Count (test code = 44519-4) 2.4 0.8-2 .2 [facility]ererum or plasma iron measurement (mass/volume)2020-02-03 05:34:00* Test Item Value Reference Range Interpretation Comments Iron Level (test code = 2498-4) 33 50-170 [facility]ererum or plasma iron binding capacity measurement (mass/volume)2020-02-03 05:34:00* Test Item Value Reference Range Interpretation Comments Total Iron Binding Capacity (test code = 2500-7) 112 261-4 78 [facility]ererum or plasma iron saturation measurement (mass fraction)2020-02-03 05:34:00* Test Item Value Reference Range Interpretation Comments Percent Iron Saturation (test code = 2502-3) 29 15-50 [facility]ererum or plasma transferrin measurement (mass/volume)2020-02-03 05:34:00* Test Item Value Reference Range Interpretation Comments Transferrin (test code = 3034-6) 80 180-382 [facility]ererum or plasma ferritin measurement (mass/volume)2020-02-03 05:34:00* Test Item Value Reference Range Interpretation Comments Ferritin (test code = 2276-4) 1296.89 4.63-204.00 [facility] CenterBlood cobalamin (vitamin B12) measurement (mass/volume)2020-02-03 05:34:00* Test Item Value Reference Range Interpretation Comments Vitamin B12 Level (test code = 25436-0) 1278 213-816 [facility] CenterAutomated reticulocyte count as percentage of total ptvqepedcizh1954-59-41 05:34:00* Test Item Value Reference Range Interpretation Comments Percent Reticulocyte Count (test code = 10620-7) 2.4 0.8-2 .2 [facility]ererum or plasma iron measurement (mass/volume)2020-02-03 05:34:00* Test Item Value Reference Range Interpretation Comments Iron Level (test code = 2498-4) 33 50-170 [facility] iron binding capacity measurement (mass/volume)2020-02-03 05:34:00* Test Item Value Reference Range Interpretation Comments Total Iron Binding Capacity (test code = 2500-7) 112 261-4 78 [facility] plasma iron saturation measurement (mass fraction)2020-02-03 05:34:00* Test Item Value Reference Range Interpretation Comments Percent Iron Saturation (test code = 2502-3) 29 15-50 [facility] or plasma transferrin measurement (mass/volume)2020-02-03 05:34:00* Test Item Value Reference Range Interpretation Comments Transferrin (test code = 3034-6) 80 180-382 [facility]ererum or plasma ferritin measurement (mass/volume)2020-02-03 05:34:00* Test Item Value Reference Range Interpretation Comments Ferritin (test code = 2276-4) 1296.89 4.63-204.00 [facility] cobalamin (vitamin B12) measurement (mass/volume)2020-02-03 05:34:00* Test Item Value Reference Range Interpretation Comments Vitamin B12 Level (test code = 39971-1) 1278 213-816 [facility]ertool gastrointestinal hemoglobin qnwkbswkc5246-90-18 04:13:00* Test Item Value Reference Range Interpretation Comments Stool Occult Blood (test code = 2335-8) POSITIVE NEGATIVE [facility] Centerto gastrointestinal hemoglobin jymwkxijp0469-13-18 04:13:00* Test Item Value Reference Range Interpretation Comments Stool Occult Blood (test code = 2335-8) POSITIVE NEGATIVE [facility]ererum or plasma creatine kinase measurement (enzymatic activity/volume)2020-02-02 13:15:00* Test Item Value Reference Range Interpretation Comments Creatine Kinase (test code = 2157-6) 13 29-168 [facility] or plasma creatine kinase MB measurement (mass/volume)2020-02-02 13:15:00* Test Item Value Reference Range Interpretation Comments Creatine Kinase MB (test code = 67656-4) 2.00 0-5.0 [facility] CenterTroponin I measurement by highly sensitive enzyme zzpxwoyihbi4184-29-08 13:15:00* Test Item Value Reference Range Interpretation Comments Troponin I (test code = 43908-2) 0.131 0-0.300 [facility]ererum or plasma creatine kinase measurement (enzymatic activity/volume)2020-02-02 13:15:00* Test Item Value Reference Range Interpretation Comments Creatine Kinase (test code = 2157-6) 13 29-168 [facility]ererum or plasma creatine kinase MB measurement (mass/volume)2020-02-02 13:15:00* Test Item Value Reference Range Interpretation Comments Creatine Kinase MB (test code = 67905-7) 2.00 0-5.0 [facility] CenterTroponin I measurement by highly sensitive enzyme megtoffuznu7748-06-49 13:15:00* Test Item Value Reference Range Interpretation Comments Troponin I (test code = 69498-4) 0.131 0-0.300 [facility]ere[facility] or plasma total bilirubin measurement (mass/volume)2020-02-02 04:40:00* Test Item Value Reference Range Interpretation Comments Total Bilirubin (test code = 1975-2) 0.5 0.2-1.2 [facility] CenterFluoroscopic procedure less than one hour uxfgwaej9642-05-83 04:40:00* Test Item Value Reference Range Interpretation Comments Aspartate Amino Transf (AST/SGOT) (test code = Aspartate Amino Transf (AST/SGOT)) 17 5-34 [facility]ererum or plasma alanine aminotransferase measurement (enzymatic activity/volume)2020-02-02 04:40:00* Test Item Value Reference Range Interpretation Comments Alanine Aminotransferase (ALT/SGPT) (test code = 1742-6) 11 0-55 [facility]ere[facility] or plasma protein measurement (mass/volume)2020-02-02 04:40:00* Test Item Value Reference Range Interpretation Comments Total Protein (test code = 2885-2) 5.6 6.5-8.1 [facility]ere[facility] or plasma albumin measurement (mass/volume)2020-02-02 04:40:00* Test Item Value Reference Range Interpretation Comments Albumin (test code = 1751-7) 2.3 3.5-5.0 [facility] CenterPlasma globulin measurement (mass/volume) 2020-02-02 04:40:00* Test Item Value Reference Range Interpretation Comments Globulin (test code = 66207-8) 3.3 2.3-3.5 [facility]ererum or plasma albumin/globulin mass varvj7630-86-06 04:40:00* Test Item Value Reference Range Interpretation Comments Albumin/Globulin Ratio (test code = 1759-0) 0.7 0.8-2.0 [facility]ererum or plasma alkaline phosphatase measurement (enzymatic activity/volume)2020-02-02 04:40:00* Test Item Value Reference Range Interpretation Comments Alkaline Phosphatase (test code = 6768-6) 123 40-150 [facility]ererum or plasma total bilirubin measurement (mass/volume)2020-02-02 04:40:00* Test Item Value Reference Range Interpretation Comments Total Bilirubin (test code = 1975-2) 0.5 0.2-1.2 [facility] CenterFluoroscopic procedure less than one hour xepcwzri4343-45-39 04:40:00* Test Item Value Reference Range Interpretation Comments Aspartate Amino Transf (AST/SGOT) (test code = Aspartate Amino Transf (AST/SGOT)) 17 5-34 [facility]ererum or plasma alanine aminotransferase measurement (enzymatic activity/volume)2020-02-02 04:40:00* Test Item Value Reference Range Interpretation Comments Alanine Aminotransferase (ALT/SGPT) (test code = 1742-6) 11 0-55 [facility]ere[facility] or plasma protein measurement (mass/volume)2020-02-02 04:40:00* Test Item Value Reference Range Interpretation Comments Total Protein (test code = 2885-2) 5.6 6.5-8.1 [facility]ere[facility] or plasma albumin measurement (mass/volume)2020-02-02 04:40:00* Test Item Value Reference Range Interpretation Comments Albumin (test code = 1751-7) 2.3 3.5-5.0 [facility] CenterPlasma globulin measurement (mass/volume) 2020-02-02 04:40:00* Test Item Value Reference Range Interpretation Comments Globulin (test code = 72791-0) 3.3 2.3-3.5 [facility]ere[facility] or plasma albumin/globulin mass msjju1252-30-77 04:40:00* Test Item Value Reference Range Interpretation Comments Albumin/Globulin Ratio (test code = 1759-0) 0.7 0.8-2.0 [facility]ere[facility] or plasma alkaline phosphatase measurement (enzymatic activity/volume)2020-02-02 04:40:00* Test Item Value Reference Range Interpretation Comments Alkaline Phosphatase (test code = 6768-6) 123 40-150 [facility] CenterFluoroscopic procedure less than one hour tltuaxzk7983-60-32 20:20:00* Test Item Value Reference Range Interpretation Comments Coronavirus (PCR) (test code = Coronavirus (PCR)) NOT DETECTED NOTD ETECTED SARS-CoV-2 PCRHologic Aptima SARS-CoV-2 assay is a nucleic amplification test in tended for the qualitative detection of RNA from SARS-CoV-2 from nasopharyngeal (AG[employer]ICULTURAL SERVICES DIRECTOR) specimens. It is used under Emergency Use [...] repr at testing oc clinically indicated.Tesing performed by:[facility] Laboratory Services3 [facility] [id number], Kavin alaniz MD, PhDDallas Medical CenterFluoroscopic procedure less than one hour kkmcffvv6822-71-47 20:20:00* Test Item Value Reference Range Interpretation Comments Coronavirus (PCR) (test code = Coronavirus (PCR)) NOT DETECTED NOTD ETECTED SARS-CoV-2 PCRHologic Aptima SARS-CoV-2 assay is a nucleic amplification test in tended for the qualitative detection of RNA from SARS-CoV-2 from nasopharyngeal (AGRICULTURAL SERVICES DIRECTOR) specimens. It is used under Emergency Use [...] repr at testing oc clinically indicated.Tesing performed by:[facility] Laboratory Services[address] [place] [address] [id number], Kavin alaniz MD, PhDDallas Medical CenterBacterial urine culture 2020-02-01 15:13:00* Test Item Value Reference Range Interpretation Comments Urine Culture (test code = 630-4) YEAST SPECIES [facility] CenterBacterial urine yrjaakf0072-10-76 15:13:00* Test Item Value Reference Range Interpretation Comments Urine Culture (test code = 630-4) GERRY TROPICALIS [facility] CenterCT ABDOMEN/PELVIS [id number] 15:06:00 [facility] [address] [place] [address] Patient Name: TAY HERNANDEZ MR #: [id number] : 1950 Age/Sex: 69/F Req #: [id number] Adm Physician: CHAYO ZAYAS MD Ordered by: BOBY BOJORQUEZ MD Report #: [id number] Location: [facility] Room/Bed: [place] [address] Procedure: [id number] CT/CT ABDOMEN/ PELVIS WO Exam Date: 02/01/20 [...] COPY TO: BOBY BOJORQUEZ MD Urine color kxicskeiinegn2295-33-53 14:20:00* Test Item Value Reference Range Interpretation Comments Urine Color (test code = 5778-6) YELLOW YELLOW [facility] CenterUrine gvpedrv9185-96-40 14:20:00* Test Item Value Reference Range Interpretation Comments Urine Clarity (test code = 80839-4) SL CLOUDY CLEAR [facility] Centerpecific gravity of Urine by Test strip 2020-02-01 14:20:00* Test Item Value Reference Range Interpretation Comments Urine Specific [place] (test code = 5811-5) 1.020 1.010-1.02 5 [facility] CenterUrine pH measurement by automated test bbszf1450-33-38 14:20:00* Test Item Value Reference Range Interpretation Comments Urine pH (test code = 46769-4) 5.5 5-7 [facility] CenterUrine leukocyte esterase detection by vjdzmcwi6186-81-13 14:20:00* Test Item Value Reference Range Interpretation Comments Urine Leukocyte Esterase (test code = 5799-2) LARGE NEGATIVE [facility] CenterUrine nitrite mapjqntgx8660-82-06 14:20:00* Test Item Value Reference Range Interpretation Comments Urine Nitrite (test code = 48744-7) NEGATIVE NEGATIVE [facility] CenterUrine protein measurement by test strip (mass/volume)2020-02-01 14:20:00* Test Item Value Reference Range Interpretation Comments Urine Protein (test code = 5804-0) 1+ NEGATIVE [facility] CenterUrine glucose jbezttvet8239-53-67 14:20:00* Test Item Value Reference Range Interpretation Comments Urine Glucose (UA) (test code = 2349-9) NEGATIVE NEGATIVE [facility] CenterUrine ketones detection by automated test qzhtq1731-07-33 14:20:00* Test Item Value Reference Range Interpretation Comments Urine Ketones (test code = 97511-7) NEGATIVE NEGATIVE [facility] CenterUrine urobilinogen measurement by test strip (mass/volume)2020-02-01 14:20:00* Test Item Value Reference Range Interpretation Comments Urine Urobilinogen (test code = 59678-0) 0.2 0.2-1 [facility] CenterUrine total bilirubin measurement (mass/volume)2020-02-01 14:20:00* Test Item Value Reference Range Interpretation Comments Urine Bilirubin (test code = 1978-6) NEGATIVE NEGATIVE [facility] CenterUrine erythrocytes tzjqgdviw5945-63-09 14:20:00* Test Item Value Reference Range Interpretation Comments Urine Blood (test code = 69815-1) TRACE NEGATIVE [facility] CenterAutomated urine sediment leukocyte count by microscopy (number/high power field)2020-02-01 14:20:00* Test Item Value Reference Range Interpretation Comments Urine WBC (test code = 5821-4) 11-20 0-5 [facility] CenterErythrocytes detection in urine sediment by light lxkevfjqyk4801-12-64 14:20:00* Test Item Value Reference Range Interpretation Comments Urine RBC (test code = 48802-4) 6-10 0-5 [facility] CenterBacteria detection in urine sediment by light ujpzuiyzvo3018-74-88 14:20:00* Test Item Value Reference Range Interpretation Comments Urine Bacteria (test code = 68546-3) RARE NONE [facility] CenterEpithelial cells detection in urine sediment by light oydtyahrvt0250-55-86 14:20:00* Test Item Value Reference Range Interpretation Comments Urine Epithelial Cells (test code = 70800-8) FEW NONE [facility] CenterUrine color vwhjehjublnel3105-52-03 14:20:00* Test Item Value Reference Range Interpretation Comments Urine Color (test code = 5778-6) YELLOW YELLOW [facility] CenterUrine cqlfbdo9145-49-40 14:20:00* Test Item Value Reference Range Interpretation Comments Urine Clarity (test code = 59912-8) SL CLOUDY CLEAR [facility] Centerpecific gravity of Urine by Test strip 2020-02-01 14:20:00* Test Item Value Reference Range Interpretation Comments Urine Specific [place] (test code = 5811-5) 1.020 1.010-1.02 5 [facility] CenterUrine pH measurement by automated test ztxiq6468-14-39 14:20:00* Test Item Value Reference Range Interpretation Comments Urine pH (test code = 82166-0) 5.5 5-7 [facility] CenterUrine leukocyte esterase detection by ezyihdur7062-16-63 14:20:00* Test Item Value Reference Range Interpretation Comments Urine Leukocyte Esterase (test code = 5799-2) LARGE NEGATIVE [facility] CenterUrine nitrite vdsimzeth2383-23-33 14:20:00* Test Item Value Reference Range Interpretation Comments Urine Nitrite (test code = 52755-5) NEGATIVE NEGATIVE [facility] CenterUrine protein measurement by test strip (mass/volume)2020-02-01 14:20:00* Test Item Value Reference Range Interpretation Comments Urine Protein (test code = 5804-0) 1+ NEGATIVE [facility] CenterUrine glucose ongrqiksz7647-17-72 14:20:00* Test Item Value Reference Range Interpretation Comments Urine Glucose (UA) (test code = 2349-9) NEGATIVE NEGATIVE [facility] CenterUrine ketones detection by automated test utxlz6426-39-34 14:20:00* Test Item Value Reference Range Interpretation Comments Urine Ketones (test code = 11992-8) NEGATIVE NEGATIVE [facility] CenterUrine urobilinogen measurement by test strip (mass/volume)2020-02-01 14:20:00* Test Item Value Reference Range Interpretation Comments Urine Urobilinogen (test code = 85138-2) 0.2 0.2-1 [facility] CenterUrine total bilirubin measurement (mass/volume)2020-02-01 14:20:00* Test Item Value Reference Range Interpretation Comments Urine Bilirubin (test code = 1978-6) NEGATIVE NEGATIVE [facility] CenterUrine erythrocytes huokljxoi8803-31-12 14:20:00* Test Item Value Reference Range Interpretation Comments Urine Blood (test code = 60825-5) TRACE NEGATIVE [facility] CenterAutomated urine sediment leukocyte count by microscopy (number/high power field)2020-02-01 14:20:00* Test Item Value Reference Range Interpretation Comments Urine WBC (test code = 5821-4) 11-20 0-5 [facility] CenterErythrocytes detection in urine sediment by light txplhvxvxt2505-08-46 14:20:00* Test Item Value Reference Range Interpretation Comments Urine RBC (test code = 81219-1) 6-10 0-5 [facility] CenterBacteria detection in urine sediment by light cndppwcode0137-17-28 14:20:00* Test Item Value Reference Range Interpretation Comments Urine Bacteria (test code = 13790-1) RARE NONE [facility] CenterEpithelial cells detection in urine sediment by light keptrlyqjx8883-22-48 14:20:00* Test Item Value Reference Range Interpretation Comments Urine Epithelial Cells (test code = 88851-5) FEW NONE [facility] CenterCHEST SINGLE (PORTABLE)2020-02-01 14:08:00 [facility] [address] [address] Patient Name: TAY HERNANDEZ MR #: [id number] : 1950 Age/Sex: 69/F Req #: [id number] Adm Physician: CHAYO ZAYAS MD Ordered by: BOBY BOJORQUEZ MD Report #: [id number] Location: [facility] Room/Bed: [place] [address] Procedure: [id number] DX/CHEST SINGL E (PORTABLE) Exam Date: 02/01/20 Exam Time: 123 REPORT STATUS: Signed EXAMINATION: CHEST SINGLE (PORTABLE) INDICATION: abd pain [id number] COMPARISON: Chest radiograph 01/27/2020 FINDINGS: TUBES [...] (PT) in platelet poor plasma by coagulation asvir0228-93-05 12:35:00* Test Item Value Reference Range Interpretation Comments Prothrombin Time (test code = 5902-2) 16.6 11.9-14.5 [facility] CenterINR in Platelet poor plasma by Coagulation alufy2401-59-04 12:35:00* Test Item Value Reference Range Interpretation Comments Prothromb Time International Ratio (test code = 6301-6) 1.28 Oral Anticoagulant Therapy INR Values:1. Low Intensity Therapy 1.5 - 2.02 . Moderate Intensity Therapy 2.0 - 3.03. High Intensity Therapy(1) 2.5 - 3. 54. High Intensity Therapy(2) 3.0 - 4.05. Panic Value INR > 5.0 [facility] CenterActivated partial thromboplastin time (aPTT) in platelet poor plasma by coagulation jsozf2999-46-16 12:35:00* Test Item Value Reference Range Interpretation Comments Activated Partial Thromboplast Time (test code = 93230-5) 37.1 23.8-35.5 [facility] CenterFluoroscopic procedure less than one hour mxcgenzl6246-76-13 12:35:00* Test Item Value Reference Range Interpretation Comments Lactic Acid Level (test code = Lactic Acid Level) 1.6 0.5- 2.0 [facility] CenterBlood ljwbxag7119-11-92 12:35:00* Test Item Value Reference Range Interpretation Comments Blood Culture (test code = 50089216) NO GROWTH AFTER 5 DAYS, FINAL REPORT [facility] CenterProthrombin time (PT) in platelet poor plasma by coagulation oblkw3147-83-59 12:35:00* Test Item Value Reference Range Interpretation Comments Prothrombin Time (test code = 5902-2) 16.6 11.9-14.5 [facility] CenterINR in Platelet poor plasma by Coagulation yumoy1574-03-09 12:35:00* Test Item Value Reference Range Interpretation Comments Prothromb Time International Ratio (test code = 6301-6) 1.28 Oral Anticoagulant Therapy INR Values:1. Low Intensity Therapy 1.5 - 2.02 . Moderate Intensity Therapy 2.0 - 3.03. High Intensity Therapy(1) 2.5 - 3. 54. High Intensity Therapy(2) 3.0 - 4.05. Panic Value INR > 5.0 [facility] CenterActivated partial thromboplastin time (aPTT) in platelet poor plasma by coagulation gccfb4498-46-57 12:35:00* Test Item Value Reference Range Interpretation Comments Activated Partial Thromboplast Time (test code = 17879-6) 37.1 23.8-35.5 [facility] CenterFluoroscopic procedure less than one hour fkbuqqkn1180-48-41 12:35:00* Test Item Value Reference Range Interpretation Comments Lactic Acid Level (test code = Lactic Acid Level) 1.6 0.5- 2.0 [facility] CenterBlood zjmlhtk9745-74-97 12:35:00* Test Item Value Reference Range Interpretation Comments Blood Culture (test code = 85786799) NO GROWTH AFTER 5 DAYS, FINAL REPORT [facility] CenterBlnorthwest medical center leukocytes automated count (number/volume)2020-01-31 05:00:00* Test Item Value Reference Range Interpretation Comments White Blood Count (test code = 6690-2) 12.01 4.8-10.8 [facility] erythrocytes automated count (number/volume)2020-01-31 05:00:00* Test Item Value Reference Range Interpretation Comments Red Blood Count (test code = 789-8) 2.80 3.6-5.1 [facility] CenterBlood hemoglobin measurement (moles/volume)2020-01-31 05:00:00* Test Item Value Reference Range Interpretation Comments Hemoglobin (test code = 25324-8) 8.0 12.0-16.0 [facility] CenterAutomated blood hematocrit (volume fraction)2020-01-31 05:00:00* Test Item Value Reference Range Interpretation Comments Hematocrit (test code = 4544-3) 24.5 34.2-44.1 [facility] CenterAutomated erythrocyte mean corpuscular sdkmef0427-81-87 05:00:00* Test Item Value Reference Range Interpretation Comments Mean Corpuscular Volume (test code = 787-2) 87.5 81-99 [facility] CenterAutomated erythrocyte mean corpuscular hemoglobin (mass per erythrocyte)2020-01-31 05:00:00* Test Item Value Reference Range Interpretation Comments Mean Corpuscular Hemoglobin (test code = 785-6) 28.6 28-32 [facility] CenterAutomated erythrocyte mean corpuscular hemoglobin concentration measurement (mass/volume)2020-01-31 05:00:00* Test Item Value Reference Range Interpretation Comments Mean Corpuscular Hemoglobin Concent (test code = 786-4) 32.7 31-35 [facility] CenterRDW KxuFa-Abu4691-19-18 05:00:00* Test Item Value Reference Range Interpretation Comments Red Cell Distribution Width (test code = 12551-5) 17.2 11.7 -14.4 [facility] CenterAutomated blood platelet count (count/volume)2020-01-31 05:00:00* Test Item Value Reference Range Interpretation Comments Platelet Count (test code = 777-3) 239 140-360 [facility] CenterAutomated blood segmented neutrophil count as percentage of total xhrsggjkhd8175-08-38 05:00:00* Test Item Value Reference Range Interpretation Comments Neutrophils (%) (Auto) (test code = 79835-8) 82.4 38.7-80.0 [facility] CenterAutomat blood lymphocyte count as percentage ot total kuvbycdzyd6155-84-29 05:00:00* Test Item Value Reference Range Interpretation Comments Lymphocytes (%) (Auto) (test code = 736-9) 8.7 18.0-39.1 [facility] CenterAutomated blood monocyte count as percentage of total ogxmlohewj3808-66-86 05:00:00* Test Item Value Reference Range Interpretation Comments Monocytes (%) (Auto) (test code = 5905-5) 5.5 4.4-11.3 [facility] CenterAutomated blood eosinophil count as percentage of total lggrdarlci5559-72-63 05:00:00* Test Item Value Reference Range Interpretation Comments Eosinophils (%) (Auto) (test code = 713-8) 2.3 0.0-6.0 [facility] CenterAutomated blood basophil count as percentage of total lwepiscark7119-54-96 05:00:00* Test Item Value Reference Range Interpretation Comments Basophils (%) (Auto) (test code = 706-2) 0.5 0.0-1.0 [facility] CenterFluoroscopic procedure less than one hour mhsmatas4666-28-66 05:00:00* Test Item Value Reference Range Interpretation Comments IM GRANULOCYTES % (test code = IM GRANULOCYTES %) 0.6 0.0- 1.0 [facility] CenterAutomated blood neutrophil count 2020-01-31 05:00:00* Test Item Value Reference Range Interpretation Comments Neutrophils # (Auto) (test code = 751-8) 9.9 2.1-6.9 [facility] CenterBlood lymphocytes count (number/volume) 2020-01-31 05:00:00* Test Item Value Reference Range Interpretation Comments Lymphocytes # (Auto) (test code = 64599-1) 1.1 1.0-3.2 [facility] CenterBlood monocytes automated count (number/volume)2020-01-31 05:00:00* Test Item Value Reference Range Interpretation Comments Monocytes # (Auto) (test code = 742-7) 0.7 0.2-0.8 [facility] CenterAutomated blood eosinophil count 2020-01-31 05:00:00* Test Item Value Reference Range Interpretation Comments Eosinophils # (Auto) (test code = 711-2) 0.3 0.0-0.4 [facility] CenterAutomated blood basophil count (count/volume)2020-01-31 05:00:00* Test Item Value Reference Range Interpretation Comments Basophils # (Auto) (test code = 704-7) 0.1 0.0-0.1 [facility] CenterFluoroscopic procedure less than one hour elcsftxi3865-32-57 05:00:00* Test Item Value Reference Range Interpretation Comments Absolute Immature Granulocyte (auto (dae t code = Absolute Immature Granulocyte (auto) 0.07 0-0.1 [facility]ererum or plasma sodium measurement (moles/volume)2020-01-31 05:00:00* Test Item Value Reference Range Interpretation Comments Sodium Level (test code = 2951-2) 136 136-145 [facility]ererum or plasma potassium measurement (moles/volume)2020-01-31 05:00:00* Test Item Value Reference Range Interpretation Comments Potassium Level (test code = 2823-3) 3.3 3.5-5.1 [facility]ererum or plasma chloride measurement (moles/volume)2020-01-31 05:00:00* Test Item Value Reference Range Interpretation Comments Chloride Level (test code = 2075-0) 95 98-107 [facility]ererum or plasma carbon dioxide, total measurement (moles/volume)2020-01-31 05:00:00* Test Item Value Reference Range Interpretation Comments Carbon Dioxide Level (test code = 2028-9) 24 22-29 [facility]ererum or plasma anion plq2736-44-29 05:00:00* Test Item Value Reference Range Interpretation Comments Anion Gap (test code = 07535-8) 20.3 8-16 [facility]ererum or plasma urea nitrogen measurement (mass/volume)2020-01-31 05:00:00* Test Item Value Reference Range Interpretation Comments Blood Urea Nitrogen (test code = 3094-0) 43 7-26 [facility]ererum or plasma creatinine measurement (mass/volume)2020-01-31 05:00:00* Test Item Value Reference Range Interpretation Comments Creatinine (test code = 2160-0) 6.76 0.57-1.11 [facility]ererum or plasma urea nitrogen/creatinine mass aeipw2905-88-12 05:00:00* Test Item Value Reference Range Interpretation Comments BUN/Creatinine Ratio (test code = 3097-3) 6 6-25 [facility] CenterEstimated glomerular filtration rate (GFR) hfocozusduzkh6887-35-56 05:00:00* Test Item Value Reference Range Interpretation Comments Estimat Glomerular Filtration Rate (test code = 683671327) 6 >60 Ranges were taken from the National Kidney Disease Education Program and the [facility] Kidney Foundation literature.Reference ranges:60 or greater: Nsphev77-70 ( for 3 consecutive months): Chronic kidney disease 15 or less: Kidney failureDallas Medical CenterGlucose edytgfhgilx4531-77-51 05:00:00* Test Item Value Reference Range Interpretation Comments Glucose Level (test code = MFE1997) 165 74-118 [facility] plasma calcium measurement (mass/volume)2020-01-31 05:00:00* Test Item Value Reference Range Interpretation Comments Calcium Level (test code = 22224-4) 7.5 8.4-10.2 [facility] glucose measurement by glucometer (mass/volume)2020-01-30 20:33:00* Test Item Value Reference Range Interpretation Comments Bedside Glucose (test code = 34769-7) 101 70-120 Meter ID: [id number] [facility] P[facility] COMPLETE NON WK3402-85-16 18:08:00 [facility] [address] [address] Patient Name: TAY HERNANDEZ MR #: [id number] : 1950 Age/Sex: 69/F Req #: [id number] Adm Physician: CHAYO ZAYAS MD Ordered by: CHAYO ZAYAS MD Report #: [id number] Location: [facility] Room/Bed: [place] [address] Procedure: [id number] US/US PELVIS COM PLETE NON OB Exam [...] Interpretation Comments Magnesium Level (test code = 04355-0) 1.4 1.3-2.1 [facility] or plasma creatine kinase measurement (enzymatic activity/volume)2020-01-28 13:15:00* Test Item Value Reference Range Interpretation Comments Creatine Kinase (test code = 2157-6) 26 29-168 [facility]ererum or plasma creatine kinase MB measurement (mass/volume)2020-01-28 13:15:00* Test Item Value Reference Range Interpretation Comments Creatine Kinase MB (test code = 81697-9) 2.20 0-5.0 [facility] CenterTroponin I measurement by highly sensitive enzyme seavqdtgoed7088-43-48 13:15:00* Test Item Value Reference Range Interpretation Comments Troponin I (test code = 74409-2) 0.221 0-0.300 [facility] CenterUrine color qfktfdomnjqir5518-59-51 07:40:00* Test Item Value Reference Range Interpretation Comments Urine Color (test code = 5778-6) STRAW YELLOW [facility] CenterUrine xnqzuvk3949-73-17 07:40:00* Test Item Value Reference Range Interpretation Comments Urine Clarity (test code = 16108-9) CLEAR CLEAR [facility] Centerpecific gravity of Urine by Test strip 2020-01-28 07:40:00* Test Item Value Reference Range Interpretation Comments Urine Specific [place] (test code = 5811-5) 1.020 1.010-1.02 5 [facility] CenterUrine pH measurement by automated test ylqcv8244-12-86 07:40:00* Test Item Value Reference Range Interpretation Comments Urine pH (test code = 46203-0) 7.5 5-7 [facility] CenterUrine leukocyte esterase detection by cmyaoril7501-29-46 07:40:00* Test Item Value Reference Range Interpretation Comments Urine Leukocyte Esterase (test code = 5799-2) NEGATIVE NEGATIVE [facility] CenterUrine nitrite zujugqahy4087-74-76 07:40:00* Test Item Value Reference Range Interpretation Comments Urine Nitrite (test code = 58687-6) NEGATIVE NEGATIVE [facility] CenterUrine protein measurement by test strip (mass/volume)2020-01-28 07:40:00* Test Item Value Reference Range Interpretation Comments Urine Protein (test code = 5804-0) 1+ NEGATIVE [facility] CenterUrine glucose qozexhbqw2631-21-13 07:40:00* Test Item Value Reference Range Interpretation Comments Urine Glucose (UA) (test code = 2349-9) 2+ NEGATIVE [facility] CenterUrine ketones detection by automated test teerg4909-91-57 07:40:00* Test Item Value Reference Range Interpretation Comments Urine Ketones (test code = 61038-2) NEGATIVE NEGATIVE [facility] CenterUrine urobilinogen measurement by test strip (mass/volume)2020-01-28 07:40:00* Test Item Value Reference Range Interpretation Comments Urine Urobilinogen (test code = 39482-1) 0.2 0.2-1 [facility] CenterUrine total bilirubin measurement (mass/volume)2020-01-28 07:40:00* Test Item Value Reference Range Interpretation Comments Urine Bilirubin (test code = 1978-6) NEGATIVE NEGATIVE [facility] CenterUrine erythrocytes jalynjuyj7264-57-14 07:40:00* Test Item Value Reference Range Interpretation Comments Urine Blood (test code = 58184-1) TRACE NEGATIVE [facility] CenterAutomated urine sediment leukocyte count by microscopy (number/high power field)2020-01-28 07:40:00* Test Item Value Reference Range Interpretation Comments Urine WBC (test code = 5821-4) 6-10 0-5 [facility] CenterErythrocytes detection in urine sediment by light lqsaarviei9878-01-75 07:40:00* Test Item Value Reference Range Interpretation Comments Urine RBC (test code = 90815-9) 04-03 0-5 [facility] CenterBacteria detection in urine sediment by light zblqruysxb6346-32-28 07:40:00* Test Item Value Reference Range Interpretation Comments Urine Bacteria (test code = 68010-2) FEW NONE [facility] CenterEpithelial cells detection in urine sediment by light hsyezcffxn8104-71-50 07:40:00* Test Item Value Reference Range Interpretation Comments Urine Epithelial Cells (test code = 56657-5) NONE NONE [facility] Centerpecimen source identification of body xvtme3321-09-07 07:40:00* Test Item Value Reference Range Interpretation Comments Body Fluid Type (test code = 57067-1) PERITONEAL [facility] CenterEvaluation of color of body fluid 2020-01-28 07:40:00* Test Item Value Reference Range Interpretation Comments Body Fluid Color (test code = 6824-7) STRAW [facility] CenterDetermination of appearance of body fluid 2020-01-28 07:40:00* Test Item Value Reference Range Interpretation Comments Body Fluid Appearance (test code = 9335-1) CLEAR [facility] body fluid leukocytes count (number/volume)2020-01-28 07:40:00* Test Item Value Reference Range Interpretation Comments Body Fluid WBC (test code = 6743-9) 4 --- 01/28/20 0845 ---BF WBC previously reported as: 4 cells/uL [facility] body fluid erythrocytes count (number/volume) 2020-01-28 07:40:00* Test Item Value Reference Range Interpretation Comments Body Fluid RBC (test code = 6741-3) 10 --- 01/28/20 0845 ---BF RBC previously reported as: 10 cells/uL [facility] body fluid neutrophils/100 ggsgyepeex2933-69-86 07:40:00* Test Item Value Reference Range Interpretation Comments Body Fluid Neutrophils (test code = 53041-6) 1 [facility] CenterBody fluid lymphocyte qdwvg3098-65-80 07:40:00* Test Item Value Reference Range Interpretation Comments Body Fluid Lymphocytes (test code = 94197721) 61 [facility] CenterBody fluid monocyte xkmkx4728-78-82 07:40:00* Test Item Value Reference Range Interpretation Comments Body Fluid Monocytes (test code = 29594-7) 38 [facility] CenterTotal cell gtixb9168-89-32 07:40:00* Test Item Value Reference Range Interpretation Comments Body Fluid Total Cells Counted (test code = 93569-4) 100 [facility] CenterFluoroscopic procedure less than one hour zfdbdmlm2253-21-66 07:40:00* Test Item Value Reference Range Interpretation Comments Body Fluid Comment (test code = Body Fluid Comment) See Comment RARE MESOTHEIAL CELLS OBSERVEDDallas Medical Center Fluoroscopic procedure less than one hour otvmoffa5607-38-98 07:40:00* Test Item Value Reference Range Interpretation Comments Body Fluid Comment (test code = Body Fluid Comment) See Comment RARE MESOTHEIAL CELLS OBSERVEDDallas Medical Center Fluoroscopic procedure less than one hour cdqeyslt3968-81-94 07:40:00* Test Item Value Reference Range Interpretation Comments Body Fluid Comment (test code = Body Fluid Comment) See Comment RARE MESOTHEIAL CELLS OBSERVEDDallas Medical Center Fluoroscopic procedure less than one hour hrbtclwq0638-56-47 04:30:00* Test Item Value Reference Range Interpretation Comments Hemoglobin A1c Percent (test code = Hemoglobin A1c Percent) 6.6 4.0-7.0 [facility]ererum or plasma total bilirubin measurement (mass/volume)2020-01-28 04:30:00* Test Item Value Reference Range Interpretation Comments Total Bilirubin (test code = 1975-2) 0.4 0.2-1.2 [facility] CenterFluoroscopic procedure less than one hour ovpssulz8230-33-94 04:30:00* Test Item Value Reference Range Interpretation Comments Aspartate Amino Transf (AST/SGOT) (test code = Aspartate Amino Transf (AST/SGOT)) 9 5-34 [facility]ererum or plasma alanine aminotransferase measurement (enzymatic activity/volume)2020-01-28 04:30:00* Test Item Value Reference Range Interpretation Comments Alanine Aminotransferase (ALT/SGPT) (test code = 1742-6) 9 0-55 [facility]ererum or plasma protein measurement (mass/volume)2020-01-28 04:30:00* Test Item Value Reference Range Interpretation Comments Total Protein (test code = 2885-2) 5.0 6.5-8.1 [facility]ererum or plasma albumin measurement (mass/volume)2020-01-28 04:30:00* Test Item Value Reference Range Interpretation Comments Albumin (test code = 1751-7) 2.2 3.5-5.0 [facility] CenterPlasma globulin measurement (mass/volume) 2020-01-28 04:30:00* Test Item Value Reference Range Interpretation Comments Globulin (test code = 11249-2) 2.8 2.3-3.5 [facility]ererum or plasma albumin/globulin mass kviba7212-22-56 04:30:00* Test Item Value Reference Range Interpretation Comments Albumin/Globulin Ratio (test code = 1759-0) 0.8 0.8-2.0 [facility]ererum or plasma alkaline phosphatase measurement (enzymatic activity/volume)2020-01-28 04:30:00* Test Item Value Reference Range Interpretation Comments Alkaline Phosphatase (test code = 6768-6) 89 40-150 [facility]ererum or plasma triglyceride measurement (mass/volume)2020-01-28 04:30:00* Test Item Value Reference Range Interpretation Comments Triglycerides Level (test code = 2571-8) 120 0-149 [facility]ererum or plasma cholesterol measurement (mass/volume)2020-01-28 04:30:00* Test Item Value Reference Range Interpretation Comments Cholesterol Level (test code = 2093-3) 77 0-199 Less than 200 mg/dL Low Vxis917 - 239 mg/dL Borderline Mfap258 m g/dl and greater High Risk [facility]ererum or plasma cholesterol in LDL measurement (mass/volume) 2020-01-28 04:30:00* Test Item Value Reference Range Interpretation Comments LDL Cholesterol (test code = 2089-1) 36 60-130 [facility]ererum or plasma cholesterol in HDL measurement (mass/volume)2020-01-28 04:30:00* Test Item Value Reference Range Interpretation Comments HDL Cholesterol (test code = 2085-9) 17 40-60 [facility]ererum or plasma total cholesterol/cholesterol in HDL mass mjrkg1391-42-93 04:30:00* Test Item Value Reference Range Interpretation Comments Cholesterol/HDL Ratio (test code = 9830-1) 4.5 3.0-3.6 [facility] CenterFluoroscopic procedure less than one hour zfoqsjye3738-61-59 04:30:00* Test Item Value Reference Range Interpretation Comments Hemoglobin A1c Percent (test code = Hemoglobin A1c Percent) 6.6 4.0-7.0 [facility]ererum or plasma triglyceride measurement (mass/volume)2020-01-28 04:30:00* Test Item Value Reference Range Interpretation Comments Triglycerides Level (test code = 2571-8) 120 0-149 [facility]ererum or plasma cholesterol measurement (mass/volume)2020-01-28 04:30:00* Test Item Value Reference Range Interpretation Comments Cholesterol Level (test code = 2093-3) 77 0-199 Less than 200 mg/dL Low Mces452 - 239 mg/dL Borderline Vgeo665 m g/dl and greater High Risk [facility]ererum or plasma cholesterol in LDL measurement (mass/volume) 2020-01-28 04:30:00* Test Item Value Reference Range Interpretation Comments LDL Cholesterol (test code = 2089-1) 36 60-130 [facility]ererum or plasma cholesterol in HDL measurement (mass/volume)2020-01-28 04:30:00* Test Item Value Reference Range Interpretation Comments HDL Cholesterol (test code = 2085-9) 17 40-60 [facility]ererum or plasma total cholesterol/cholesterol in HDL mass cgfxh4816-38-48 04:30:00* Test Item Value Reference Range Interpretation Comments Cholesterol/HDL Ratio (test code = 9830-1) 4.5 3.0-3.6 [facility] CenterFluoroscopic procedure less than one hour jialxlrd8629-67-30 04:30:00* Test Item Value Reference Range Interpretation Comments Hemoglobin A1c Percent (test code = Hemoglobin A1c Percent) 6.6 4.0-7.0 [facility]ererum or plasma triglyceride measurement (mass/volume)2020-01-28 04:30:00* Test Item Value Reference Range Interpretation Comments Triglycerides Level (test code = 2571-8) 120 0-149 [facility]ererum or plasma cholesterol measurement (mass/volume)2020-01-28 04:30:00* Test Item Value Reference Range Interpretation Comments Cholesterol Level (test code = 2093-3) 77 0-199 Less than 200 mg/dL Low Xdhc490 - 239 mg/dL Borderline Hfxr043 m g/dl and greater High Risk [facility]ererum or plasma cholesterol in LDL measurement (mass/volume) 2020-01-28 04:30:00* Test Item Value Reference Range Interpretation Comments LDL Cholesterol (test code = 2089-1) 36 60-130 [facility]ererum or plasma cholesterol in HDL measurement (mass/volume)2020-01-28 04:30:00* Test Item Value Reference Range Interpretation Comments HDL Cholesterol (test code = 2085-9) 17 40-60 [facility]ererum or plasma total cholesterol/cholesterol in HDL mass ueiuk2997-00-65 04:30:00* Test Item Value Reference Range Interpretation Comments Cholesterol/HDL Ratio (test code = 9830-1) 4.5 3.0-3.6 [facility] CenterCT ABDOMEN/PELVIS HT8526-16-21 16:33:00 [facility] [address] [address] Patient Name: TAY HERNANDEZ MR #: [id number] : 1950 Age/Sex: 69/F Req #: [id number] Adm Physician: CHAYO ZAYAS MD Ordered by: ADAM HERCULES MD Report #: [id number] Location: [facility] Room/Bed: [place] [address] Procedure: [id number] CT/CT ABDOMEN/PE LVIS WO Exam Date: 01/27/20 [...] MD Fluoroscopic procedure less than one hour gifmmdzs1226-26-90 14:00:00* Test Item Value Reference Range Interpretation Comments Lactic Acid Level (test code = Lactic Acid Level) 1.4 0.5- 2.0 [facility] CenterFluoroscopic procedure less than one hour hsdfpzie2740-43-06 13:45:00* Test Item Value Reference Range Interpretation [...] collected from individuals suspected of COVID-19 by [facility] healthcare provider. This test has not been [...] EUA is revoked under 564(g) of the ACT.[facility] SINGLE (PORTABLE)2020-01-27 12:22:00 [facility] [address] [address] Patient Name: TAY HERNANDEZ MR #: [id number] : 1950 Age/Sex: 69/F Req #: [id number] Adm Physician: Ordered by: DINA ALDANA DO Report #: [id number] Location: ER Room/Bed: Procedure: [id number] DX/CHEST SINGLE (PORTABLE) Exam Date: 01/27/20 Exam Time: 1130 REPORT STATUS: Signed TECHNIQUE: Fro ntal view of the chest. INDICATION: ERMD ORDER [id number] 1130 Y COMPARISON: None DISCUSSION: Limited evaluation [...] REYES MD on 01/27/20 1223 Transcribed By: CARROLL on 01/13 09/01 1223 COPY TO: KATYADINA Arterial blood pH measurement 2020-01-27 11:47:00* Test Item Value Reference Range Interpretation Comments Arterial Blood pH (test code = 2744-1) 7.48 7.35-7.45 [facility] CenterpCO2 IddT1294-79-16 11:47:00* Test Item Value Reference Range Interpretation Comments Arterial Blood Partial Pressure CO2 (test code = 2018-12) 26 35-45 [facility] CenterpCO2 YdcG5756-56-29 11:47:00* Test Item Value Reference Range Interpretation Comments Arterial Blood Partial Pressure O2 (test code = 2018-12) 202 80-105 [facility] CenterArterial blood bicarbonate measurement (moles/volume)2020-01-27 11:47:00* Test Item Value Reference Range Interpretation Comments Arterial Blood HCO3 (test code = 1960-4) 19 22-26 [facility] CenterArterial cord blood carbon dioxide, total measurement by calculation (moles/volume)2020-01-27 11:47:00* Test Item Value Reference Range Interpretation Comments Arterial Blood Total CO2 (test code = 64620-8) 20 [facility] CenterArterial blood base excess by calculation 2020-01-27 11:47:00* Test Item Value Reference Range Interpretation Comments Arterial Blood Base Excess (test code = 1925-7) -4.0 -2-3 [facility] CenterArterial blood oxygen saturation lddwrffvwdp1997-18-59 11:47:00* Test Item Value Reference Range Interpretation Comments Arterial Blood Oxygen Saturation (test code = 2708-6) 100.0 95-98 [facility] CenterFluoroscopic procedure less than one hour xbgonzvi7975-25-47 11:47:00* Test Item Value Reference Range Interpretation Comments FiO2 (test code = FiO2) 32 LAUREL FROM RIGHT BRACHIAL PT ON 3L NC [facility] Arterial blood pH vkxjxmziytk9048-07-48 11:47:00* Test Item Value Reference Range Interpretation Comments Arterial Blood pH (test code = 2744-1) 7.48 7.35-7.45 [facility] CenterpCO2 KygA5509-17-84 11:47:00* Test Item Value Reference Range Interpretation Comments Arterial Blood Partial Pressure CO2 (test code = 2018-) 26 35-45 [facility] CenterpCO2 CciB9166-06-42 11:47:00* Test Item Value Reference Range Interpretation Comments Arterial Blood Partial Pressure O2 (test code = 2018-) 202 80-105 [facility] CenterArterial blood bicarbonate measurement (moles/volume)2020-01-27 11:47:00* Test Item Value Reference Range Interpretation Comments Arterial Blood HCO3 (test code = 1960-4) 19 22-26 [facility] CenterArterial cord blood carbon dioxide, total measurement by calculation (moles/volume)2020-01-27 11:47:00* Test Item Value Reference Range Interpretation Comments Arterial Blood Total CO2 (test code = 44994-2) 20 [facility] CenterArterial blood base excess by calculation 2020-01-27 11:47:00* Test Item Value Reference Range Interpretation Comments Arterial Blood Base Excess (test code = 1925-7) -4.0 -2-3 [facility] CenterArterial blood oxygen saturation sklhuzwylnj0045-51-49 11:47:00* Test Item Value Reference Range Interpretation Comments Arterial Blood Oxygen Saturation (test code = 2708-6) 100.0 95-98 [facility] CenterFluoroscopic procedure less than one hour azvrisqj4221-09-87 11:47:00* Test Item Value Reference Range Interpretation Comments FiO2 (test code = FiO2) 32 LAUREL FROM RIGHT BRACHIAL PT ON 3L NC [facility] Arterial blood pH cfstnaehggl1031-16-15 11:47:00* Test Item Value Reference Range Interpretation Comments Arterial Blood pH (test code = 2744-1) 7.48 7.35-7.45 [facility] CenterpCO2 DspN4409-06-26 11:47:00* Test Item Value Reference Range Interpretation Comments Arterial Blood Partial Pressure CO2 (test code = 2018-) 26 35-45 [facility] CenterpCO2 SclD0556-58-99 11:47:00* Test Item Value Reference Range Interpretation Comments Arterial Blood Partial Pressure O2 (test code = 2019-) 202 80-105 [facility] CenterArterial blood bicarbonate measurement (moles/volume)2020-01-27 11:47:00* Test Item Value Reference Range Interpretation Comments Arterial Blood HCO3 (test code = 1960-4) 19 22-26 [facility] CenterArterial cord blood carbon dioxide, total measurement by calculation (moles/volume)2020-01-27 11:47:00* Test Item Value Reference Range Interpretation Comments Arterial Blood Total CO2 (test code = 52182-4) 20 [facility] CenterArterial blood base excess by calculation 2020-01-27 11:47:00* Test Item Value Reference Range Interpretation Comments Arterial Blood Base Excess (test code = 1925-7) -4.0 -2-3 [facility] CenterArterial blood oxygen saturation rkutngosvpc4540-16-91 11:47:00* Test Item Value Reference Range Interpretation Comments Arterial Blood Oxygen Saturation (test code = 2708-6) 100.0 95-98 [facility] CenterFluoroscopic procedure less than one hour udzpnmsp7690-52-53 11:47:00* Test Item Value Reference Range Interpretation Comments FiO2 (test code = FiO2) 32 LAUREL FROM RIGHT BRACHIAL PT ON 3L NC [facility] Blood dqtsrir9545-11-78 11:37:00* Test Item Value Reference Range Interpretation Comments Blood Culture (test code = 36391840) NO GROWTH AFTER 72 HOURS [facility] CenterProthrombin time (PT) in platelet poor plasma by coagulation kjerl1142-49-46 11:27:00* Test Item Value Reference Range Interpretation Comments Prothrombin Time (test code = 5902-2) 16.9 11.9-14.5 [facility] CenterINR in Platelet poor plasma by Coagulation xsdvj4191-92-34 11:27:00* Test Item Value Reference Range Interpretation Comments Prothromb Time International Ratio (test code = 6301-6) 1.31 Oral Anticoagulant Therapy INR Values:1. Low Intensity Therapy 1.5 - 2.02 . Moderate Intensity Therapy 2.0 - 3.03. High Intensity Therapy(1) 2.5 - 3. 54. High Intensity Therapy(2) 3.0 - 4.05. Panic Value INR > 5.0 [facility]2020-09-14 11:27:00* Test Item Value Reference Range Interpretation Comments B-Type Natriuretic Peptide (test code = 59808-3) 217.7 0-100 [facility] or plasma lipase measurement (enzymatic activity/volume)2020-01-27 11:27:00* Test Item Value Reference Range Interpretation Comments Lipase (test code = 3040-3) 116 8-78 [facility]2020-09-14 11:27:00* Test Item Value Reference Range Interpretation Comments B-Type Natriuretic Peptide (test code = 26586-1) 217.7 0-100 [facility]ererum or plasma lipase measurement (enzymatic activity/volume)2020-01-27 11:27:00* Test Item Value Reference Range Interpretation Comments Lipase (test code = 3040-3) 116 8-78 [facility]2020-09-14 11:27:00* Test Item Value Reference Range Interpretation Comments B-Type Natriuretic Peptide (test code = 09480-5) 217.7 0-100 [facility]ererum or plasma lipase measurement (enzymatic activity/volume)2020-01-27 11:27:00* Test Item Value Reference Range Interpretation Comments Lipase (test code = 3040-3) 116 8-78 [facility] CenterBASIC METABOLIC PECBW8954-56-35 15:25:00 * Test Item Value Reference Range [...] code = CA) 6.6 mg/dL 8.5-10.1 L [id number]-S0655-84-17 15:25:00* Test Item Value Reference Range Interpretation Comments TROPONIN-I (test code = TROPI) 0.025 ng/mL 0-0.045 N HEPATIC FUNCTION YVITO1634-23-19 15:25:00* Test Item Value Reference Range Interpretation [...] reference range due to change in reagent. DMNNDW8119-36-10 15:25:00* Test Item Value Reference Range Interpretation Comments LIPASE (test code = LIP) 252 U/L 73.0-393.0 N BASIC METABOLIC CQAFI6442-80-55 15:18:00* Test Item Value Reference Range Interpretation [...] CALCIUM (test code = CA) mg/dL 8.5-10.1 GVLLXIZM-L7288-66-17 15:18:00* Test Item Value Reference Range Interpretation Comments TROPONIN-I (test code = TROPI) ng/mL 0-0.045 PROTHROMBIN AJIY4743-61-47 15:18:00* Test Item Value Reference Range Interpretation [...] (2.5-3.5) IS PATIENT ON ANTICOAGULANTS? NTHROMBOPLASTIN TIME CDVBWMG4269-11-26 15:18:00* Test Item Value Reference Range Interpretation Comments THROMBOPLASTIN TIME PARTIAL (test code = PTT) 26.6 seconds 23.0-37. 0 N IS PATIENT ON ANTICOAGULANTS? NCBC W/O [id number] 15:11:00* Test Item Value Reference Range Interpretation [...] MPV) 8.9 fL 6.7-11.0 N CBC W/O [id number] 15:10:00* Test Item Value Reference Range Interpretation [...] MPV) fL 6.7-11.0 - XR CHEST 1 [id number] 14:46:00 FAX: Grady Richey NP [phone] [place]: St: REG Name: TAY CORMIER [facility] : [birth year] Age/S: 69/F [address] Unit #: [id number] Loc: [place], [place] [address] Phys: Grady Richey NP Acct: [id number] Dis Date: Status: REG ER PHONE #: [phone] Exam Date: 12/30/2019 1431 FAX #: [phone] Reason: CHEST PAIN EXAMS: CPT CODE: [id number] XR CHEST 1 V 48875 REASON FOR EXAM: CHEST PAIN Exam Order [...] unchanged. IMPRESSION: No acute cardiopulmonary process. Location: [facility] Enma ctronically Signed by Scar Velazquez M.D. on 12/30/2019 at 6476 Reported and signed by: Scar Velazquez M.D. CC: Grady Richey NP Technologist: Tami Madrigal RT(R) Trnscrd Date/Time/By: 12/30/2019 (7359) : By: [email or web address] Orig Print D/T: S: 12/30/2019 (5779) PAGE 1 Signed Report Hepatitis B surface Ab, wifyemhvrqen8881-30-11 12:43:52* Test Item Value Reference Range Interpretation [...] Interval: anti-HBs 9.99 IU/L or less ....... Rdxhzohx39.00 IU/L or greater .... PositiveResults greater than 1,000.00 IU/L are reported as greater than 1,000.00 IU/L. This assay should not be used for blood donor screening, associated re-entry protocols, or for screening Human Cell, Tissues and Cellular and Tissue-Based Products (HCT/P).Performed by [facility],[address] [place] [id number] pzx.3Guppies, Mikael Matias MD, Lab. Director [facility] 12 [id number] 15:35:20* Test Item Value Reference Range Interpretation Comments Ventricular rate (test code = 253) 101 Atrial rate (test code = 255) 101 KS interval (test code = 266) 166 QRSD [...] abnormality-No previous ECGs available- 3:3 5:19 PM [facility] ssmbtym7547-97-43 11:09:07* Test Item Value Reference Range Interpretation Comments POC glucose (test code = 33034-9) 207 mg/dL 65-100 H Assistant Infant Toddler Teacher Name: Sue Sotomayor ID: [id number] Lab Interpretation (test code = 09929-8) Abnormal [facility] [id number] 06:45:03* Test Item Value Reference Range Interpretation Comments Sodium (test code = 2951-2) 135 135- 150 mEq/L Potassium (test code = 2823-3) 3.6 3.5- 5.0 mEq/L Chloride (test code = 2075-0) 93 98- 112 mEq/L L CO2 (test code = 2027-9) 25 mmol/L 24-31 Anion gap (test code = 25822-9) 17@ANIO 7- 15 mEq/L H BUN (test code = 3094-0) 36 mg/dL 7-18 H Creatinine (test code = 2160-0) 6.40 mg/dL 0.5-0.9 H Glucose (test code = 2345-7) 217 mg/dL 65-100 H Calcium (test code = 54903-3) 7.6 mg/dL 8.8-10.2 L Lab Interpretation (test code = 99205-0) Abnormal [facility] [id number] 06:45:02* Test Item Value Reference Range Interpretation Comments Estimated GFR (test code = 5488) 6 mL/min/1.73 m2 A Catergory Units InterpretationG1 >=90 Normal or highG2 60-89 Mildly yjnilnneaA9z 45-59 Mildly to moderately gfjiichkbT3r 30-44 Moderately to severely decreasedG4 15-29 Severely decreasedG5 <15 Kidney failureThe eGFR was calculated using the Chronic Kidney Disease Epidemiology Collaboration (CKD-EPI) equation. Interpretation is based on recommendations of the National Kidney Foundation-Kidney Disease Outcomes Quality Initiative (NKF-KDOQI) published in 2014. Lab Interpretation (test code = 67655-1) [facility]normal [facility] with platelet and yvxxrqqfqqgk1730-62-30 06:27:02* Test Item Value Reference Range Interpretation Comments WBC (test code = 97154-8) 7.1 4.2- 11.0 k/uL RBC (test code = 39000-0) 3.04 m/uL 4.04-5.86 L HGB (test code = 718-7) 9.1 g/dL 11.5-15.3 L HCT (test code = 4544-3) 28.3 % 34-45 L MCV (test code = 787-2) 93.1 fL 80-98 MCH (test code = 785-6) 29.9 pg 27-34 MCHC (test code = 786-4) 32.2 g/dL 31.5-36.5 RDW - SD (test code = 39824-2) 48.3 fL 37-51 MPV (test code = 35137-3) 8.2 fL 7.4-10.4 Platelet count (test code = 99706-9) 376 150- 400 k/uL Nucleated RBC (test code = 32436-6) 0.00 /100 WBC Neutrophils (test code = 24705-9) 64.6 % 36-66 Lymphocytes (test code = 68456-5) 23.6 % 24-44 L Monocytes (test code = 78959-3) 6.6 % 0-6 H Eosinophils (test code = 17823-4) 3.9 % 0-6 Basophils (test code = 09448-9) 1.0 % 0-1.2 Immature granulocytes (test code = 48339-8) 0.3 % 0-1 Lab Interpretation (test code = 30735-2) Abnormal [place]EhbhlozamXpkxqjbl8929-32-94 02:53:12* Test Item Value Reference Range Interpretation Comments Troponin (test code = 21747-1) 0.020 ng/mL 0-0.04 In patients suspected of [...] OR decreased by less than 0.020 ng/mL [facility]atitis B surface txfcfrp3850-39-36 23:54:28* Test Item Value Reference Range Interpretation Comments Hepatitis B surface Ag (test code = 5195-3) Non-reactive Non-reacti ve [facility] MethodistB natriuretic usdkrny8400-71-96 21:26:12* Test Item Value Reference Range Interpretation Comments BNP (test code = 10794-5) 97 pg/mL 0-100 [facility]Com[facility] metabolic rcovh8849-90-65 21:17:33* Test Item Value Reference Range Interpretation Comments Sodium (test code = 2951-2) 135 135- 150 mEq/L Potassium (test code = 2823-3) 3.2 3.5- 5.0 mEq/L L Chloride (test code = 2075-0) 92 98- 112 mEq/L L CO2 (test code = 8-9) 24 mmol/L 24-31 Anion gap (test code = 41861-7) 19@ANIO 7- 15 mEq/L H BUN (test code = 3094-0) 37 mg/dL 7-18 H Creatinine (test code = 2160-0) 6.60 mg/dL 0.5-0.9 H Glucose (test code = 2345-7) 95 mg/dL 65-100 Calcium (test code = 35650-1) 7.6 mg/dL 8.8-10.2 L Protein (test code [...] mg/dL 0.2-1.2 Lab Interpretation (test code = 80028-1) Abnormal [facility] MethodistLipid [id number] 21:17:32* Test Item Value Reference Range Interpretation Comments Cholesterol (test code = 2093-3) 80 mg/dL 0-199 Triglycerides (test code = 2571-8) 87 mg/dL 0-149 HDL cholesterol (test code = 2085-9) 26 mg/dL 40-9999 L LDL cholesterol (test code = 2089-1) 41 mg/dL 0-99 Result obtained by direct LDL measurement Lipid panel interpretation (test code = 09208-2) See below Total Cholesterol (mg/dL) LDL Cholesterol [...] (>=200 mg/dL) Lab Interpretation (test code = 30141-3) Abnormal [place] MethodistProthrombin time with [id number] 21:11:19* Test Item Value Reference Range Interpretation Comments Prothrombin time (test code = 5902-2) 14.8 11.5- 14.5 sec H INR (test code = 19609-9) 1.16 Fo r patients on anticoagulant therapy, reference ranges below:Indication: INR ValueTreatment of Venous Thrombosis, 2.0-3.0pulmonary emboli, or prophylaxisof a venous thrombosis, or systemic emboli.High dose, high risk patients 3.0-4.5with mechanical valves.NOTE: INR values over 3.0 are sometimes associated withgastrointestinal hemorrhage, especially values over 4.0. Lab Interpretation (test code = 56370-7) Abnormal [facility] MethodistCT Head Wo Rwkqktsn4607-29-87 20:54:39Hm Interface, Radiology Results 08/28/2019 8:57 PM [...] intracranial abn ormality. Chronic findings as detailed above.[facility]-[id number] Methodist BASIC METABOLIC [id number] 12:14:00* Test Item Value Reference Range Interpretation [...] code = CA) 7.8 mg/dL 8.0-10.5 L [id number]-V8824-28-15 12:14:00* Test Item Value Reference Range Interpretation Comments TROPONIN-I (test code = TROPI) <0.015 ng/mL 0.00-0.056 N CBC W/O [id number] 11:51:00* Test Item Value Reference Range Interpretation [...] = MPV) 8.4 fL 6.7-11.0 N Urea Nitrogen/Ngwibkvpod5595-62-75 07:25:00* Test Item Value Reference Range Interpretation Comments Urea Nitrogen (test code = 70096914) 54.0 mg/dL 7-25 H Creatinine (test code = 09523420) 5.1 mg/dL 0.6-1.2 H GFR, Estimated (test code = 29223951) 8 >=90 mL/min/1.73 m2 L Lab Interpretation (test code = 05827-3) [facility]normal [facility] Center[facility], Sfhmpbg0054-36-23 07:25:00* Test Item Value Reference Range Interpretation Comments Glucose, Fasting (test code = 99194428) 336 mg/dL 74-106 H Reference Range: Two or more of the venous plasma concentrations must be met or exceeded for a positive diagnosis. Non- Fasting 105 mg/dL 95 mg/dL 1 hr 190 mg/dL 180 mg/dL 2 hr 165 mg/dL 155 mg/dL 3 hr 145 mg/dL 140 mg/dL Lab Interpretation (test code = 91437-3) Abnormal [facility] CenterLipid Htoedez4665-89-78 07:25:00* Test Item Value Reference Range Interpretation Comments Cholesterol (test code = 2093-3) 123.0 mg/dL <=200.0 Triglyceride (test code = 79975282) 186 mg/dL <150 H HDL (test code = 2085-9) 40.0 mg/dL See Reference Range Narrative . LDL (test code = 58074-5) 46 mg/dL <100 Op timal: < 100.0 mg/dLNear Optimal: 120-129 mg/dLBorderline: 130-159 mg/dLHigh: 160-189 mg/dLVery High: >=190 mg/dL Patient Fasting? (test code = 65748058) No SHAWN (test code = SHAWN) Patient is not fasting. For a triglyceride result greater than 440 mg/dL, consider re-testing when the patient is in a fasting state. Lab Interpretation (test code = 10253-4) Abnormal [facility] CenterLiver Njaibrd4722-94-08 07:25:00* Test Item Value Reference Range Interpretation Comments Bilirubin, Total (test code = 2885-2) 0.5 mg/dL 0.2-1.2 Alkaline Phosphatase (test code = 11746012) 281 U/L 34-104 H AST (test code = 36915407) 11 U/L 13-39 L Direct Bilirubin (test code = 1968-7) 0.1 mg/dL 0-0.2 ALT (test code = 02978492) 27 U/L 7-52 Albumin (test code = 31523-4) 3.1 g/dL 3.7-5.3 L Lab Interpretation (test code = 19967-8) Abnormal [facility] CenterNthhebFvczgeuctmjq6325-90-80 07:25:00* Test Item Value Reference Range Interpretation Comments Sodium (test code = 2951-2) 133 mmol/L 136-145 L Potassium (test code = 2823-3) 3.2 mmol/L 3.5-5.1 L Chloride (test code = 2075-0) 93 mmol/L 98-107 L CO2 (test code = 51214769) 25 mmol/L 21-31 Anion Gap (test code = 43275236) 15 mmol/L 5-16 Lab Interpretation (test code = 00116-8) Abnormal [facility] CenterHemoglobin [id number] 19:37:00* Test Item Value Reference Range Interpretation Comments Hemoglobin A1c (test code = 4548-4) 10.4 % 4.3-6.1 H Estimated Average Glucose (test code = 34288561) 252 mg/dL 70-11 0 H Lab Interpretation (test code = 89214-2) Abnormal [facility] CenterCBC (without differential)2019-07-22 16:56:00* Test Item Value Reference [...] 33.8 g/dL 32-36 RDW (test code = 46816-2) 48.4 fL 36.4-46.3 H Platelet (test code = 777-3) 350 K/uL 150-400 Mean Platelet Volume (test code = 82842-7) 9.2 fL 9.4-12.4 L Percent NRBC (test code = 35143326) 0.0 % Lab Interpretation (test code = 21585-6) Abnormal [facility] CenterURINALYSIS, [id number] 13:32:00* Test Item Value Reference Range Interpretation Comments RBC (test code = 97875732) 11-21 0- 4 /HPF A WBC (test code = 84559231) 5-20 0- 5 /HPF A Mucous (test code = 77023251) Present None seen /HPF A Epithelial Cell (test code = 85977540) 1/HPF <1 /HPF A Bacteria (test code = 54175496) Moderate None seen /HPF A Granular Cast (test code = 10126403) 0-1 None seen /LPF Lab Interpretation (test code = 38731-2) Abnormal [place] GtujqgHscojrmstt2531-58-51 13:23:00* Test Item Value Reference Range Interpretation Comments Color (test code = 49835310) Yellow Colorless, Straw, Yellow Clarity (test code = 91847731) Clear Clear Spec [place], Ur (test code = 5811-5) 1.025 1.005-1.035 pH, Ur (test code = 5803-2) 5.5 5.0-8.0 Protein, Ur (test code = 05270-8) 2+ Negative mg/dL A Glucose, Ur (test code = 02279-5) 1+ Negative A Ketone, Ur (test code = 2514-8) Negative Negative Bilirubin, Ur (test code = 5770-3) Negative Negative Nitrite, Ur (test code = 5802-4) Negative Negative Urobilinogen, Ur (test code = 49458-9) <1.0 <1.0 EU/dL Leukocyte (test code = 72782130) 1+ Negative A Blood, Ur (test code = 09148825) 1+ Negative A Lab Interpretation (test code = 20609-2) Abnormal [facility] FOOT [id number] 08:20:00Moises Jung MD 02/25/2019 11:27 AMDiabetic Foot Exam was performed at 02/25/2019 10:33 AM. Right foot sensation is normal, right foot pulses are normal, right foot appearance is normal. Left foot sensation is normal, left foot pulses are normal, left foot appearance is normal. [facility] METABOLIC PANEL 2018-09-16 03:54:00* Test Item Value [...] code = CA) 7.7 mg/dL 8.5-10.1 L JLJYRVKU-[id number] 03:49:00* Test Item Value Reference Range Interpretation Comments TROPONIN-I (test code = TROPI) <0.015 ng/mL 0-0.045 N COMMENTS TO SILK [employer]AT BODY MAKER: COLLECT 3 HOURS AFTER PREVIOUS SAMPLECBC W/AUTO [id number] 03:43:00* Test Item Value Reference Range Interpretation [...] code = NRBC#) 0.00 K/mm3 0.0-0.1 N [id number]-[id number] 23:03:00* Test Item Value Reference Range Interpretation Comments TROPONIN-I (test code = TROPI) <0.015 ng/mL 0-0.045 N COMMENTS TO SILK TOP HAT BODY MAKER: COLLECT 3 HOURS AFTER PREVIOUS HJRSGKSGSQFS3444-56-48 20:29:00* Test Item Value Reference Range Interpretation Comments GLUBED (test code = GLUBED) 146 mg/dL 74-106 H Performed by certified laser set up operator at [facility] - CT HEAD/BRAIN W/O [id number] 14:25:00 Name: TAY HERNANDEZ [facility] : 1950 Age/S: 68 / F [address] Unit #: [id number] Loc: [place] [address] Phys: CHU ZAPATA MD Acct: [id number] Dis Date: Status: ADM IN PHONE #: [phone] Exam Date: 09/15/2018 1347 FAX #: [phone] Reason: change in vision EXAMS: CPT CODE: [id number] CT HEAD/BRAIN W/O CONT 70710 EXAM: CT of the head without contrast; [...] at 1425 Reported and signed by: Damian Lewsi M.D. CC: CHU ZAPATA MD Technologist:Nano Reyes,RT(R),CT; Delores CTDI: DLP: Trnscb Date/Time: 09/15/2018 (1425) Marlene Orig Print D/T: S: 09/15/2018 (8987) CTDI: DLP: PAGE 1 Signed Report BASIC METABOLIC [id number] 13:46:00* Test Item Value Reference Range Interpretation [...] CA) 8.4 mg/dL 8.5-10.1 L HEPATIC FUNCTION [id number] 13:46:00* Test Item Value Reference Range Interpretation [...] reference range due to change in reagent. [id number] 13:46:00* Test Item Value Reference Range Interpretation Comments MAGNESIUM (test code = MAG) 2.2 mg/dL 1.8-2.4 N THYROID STIMULATING [id number] 13:46:00* Test Item Value Reference Range Interpretation Comments THYROID STIMULATING HORMONE (test code = TSH) 0.316 uIU/mL 0.36-3.7 4 L TSH REFERENCE RANGES: EUTHYROID: 0.35 - 4.3 mIU/mL HYPO : > 5.5 mIU/mL HYPER : < 0.35 mIU/mL [id number] 13:40:00* Test Item Value Reference Range Interpretation Comments TROPONIN-I (test code = TROPI) <0.015 ng/mL 0-0.045 N BASIC METABOLIC [id number] 13:34:00* Test Item Value Reference Range Interpretation [...] code = CA) mg/dL 8.5-10.1 HEPATIC FUNCTION [id number] 13:34:00* Test Item Value Reference Range Interpretation [...] TOTAL (test code = ALKP) IUnit/L 45-117 [id number] 13:34:00* Test Item Value Reference Range Interpretation Comments MAGNESIUM (test code = MAG) mg/dL 1.8-2.4 THYROID STIMULATING [id number] 13:34:00* Test Item Value Reference Range Interpretation Comments THYROID STIMULATING HORMONE (test code = TSH) uIU/mL 0.36-3.7 4 BASIC METABOLIC [id number] 13:32:00* Test Item Value Reference Range Interpretation [...] code = CA) mg/dL 8.5-10.1 HEPATIC FUNCTION [id number] 13:32:00* Test Item Value Reference Range Interpretation [...] TOTAL (test code = ALKP) IUnit/L 45-117 [id number] 13:32:00* Test Item Value Reference Range Interpretation Comments MAGNESIUM (test code = MAG) mg/dL 1.8-2.4 THYROID STIMULATING [id number] 13:32:00* Test Item Value Reference Range Interpretation Comments THYROID STIMULATING HORMONE (test code = TSH) uIU/mL 0.36-3.7 4 PROTHROMBIN [id number] 13:17:00* Test Item Value Reference Range Interpretation [...] (2.5-3.5) IS PATIENT ON ANTICOAGULANTS? NTHROMBOPLASTIN TIME [id number] 13:17:00* Test Item Value Reference Range Interpretation Comments THROMBOPLASTIN TIME PARTIAL (test code = PTT) 30.3 seconds 25.0-36. 5 N IS PATIENT ON ANTICOAGULANTS? NCBC W/O [id number] 13:09:00* Test Item Value Reference Range Interpretation [...] fL 6.7-11.0 N - XR CHEST 1 [id number] 11:53:00 FAX: CHU ZAPATA MD [place]: B St: REG Name: [facility]ten [facility] : [birth year] Age/S: 68/F Delfina Voss y Unit #: [id number] Loc: [place] [address] Phys: CHU ZAPATA MD Acct: [id number] Dis Date: Status: REG ER PHONE #: [phone] Exam Date: 09/15/2018 1148 FAX #: [phone] Reason: CHEST PAIN EXAMS: CPT CODE: [id number] XR CHEST 1 V 79969 EXAM: Chest x-ray, one view; INFORMATION: Chest [...] Technologist: Joe Briseno RT(R) Trnscrd Date/Time/By: 09/15/2018 (0991) : By: EbenezerGRW Orig Print D/T: S: 09/15/2018 (4169) PAGE 1 Signed Report [id number] 16:07:00* Test Item Value Reference Range Interpretation Comments GLUBED (test code = GLUBED) 148 mg/dL 74-106 H Performed by certified laser set up operator at [facility] [id number] 08:13:00* Test Item Value Reference Range Interpretation Comments GLUBED (test code = GLUBED) 77 mg/dL 74-106 N Performed by certified laser set up operator at [facility] BASIC METABOLIC [id number] 07:00:00* Test Item Value Reference Range Interpretation [...] CA) 8.1 mg/dL 8.5-10.1 L BASIC METABOLIC [id number] 06:43:00* Test Item Value Reference Range Interpretation [...] code = CA) 8.1 mg/dL 8.5-10.1 L [id number] 21:12:00* Test Item Value Reference Range Interpretation Comments GLUBED (test code = GLUBED) 99 mg/dL 74-106 N Performed by certified laser set up operator at [facility] [id number] 16:02:00* Test Item Value Reference Range Interpretation Comments GLUBED (test code = GLUBED) 140 mg/dL 74-106 H Performed by certified laser set up operator at [facility] [id number] 13:23:00* Test Item Value Reference Range Interpretation Comments GLUBED (test code = GLUBED) 118 mg/dL 74-106 H Performed by certified laser set up operator at [facility] HEPATITIS B CORE ANTIBODY,[id number] 09:16:00* Test Item Value Reference Range Interpretation Comments HEPATITIS B CORE ANTIBODY,TOT (test code = HBCAB) NEGATIVE NEGA TIVE BASIC METABOLIC [id number] 09:06:00* Test Item Value Reference Range Interpretation [...] CA) 7.8 mg/dL 8.5-10.1 L CBC W/AUTO [id number] 08:43:00* Test Item Value Reference Range Interpretation [...] DIFF REQUIRED (test code = MDIFF) NO [id number] 07:59:00* Test Item Value Reference Range Interpretation Comments GLUBED (test code = GLUBED) 83 mg/dL 74-106 N Performed by certified laser set up operator at [facility] [id number] 20:50:00* Test Item Value Reference Range Interpretation Comments GLUBED (test code = GLUBED) 143 mg/dL 74-106 H Performed by certified laser set up operator at [facility] [id number] 16:19:00* Test Item Value Reference Range Interpretation Comments GLUBED (test code = GLUBED) 110 mg/dL 74-106 H Performed by certified laser set up operator at [facility] [id number] 11:33:00* Test Item Value Reference Range Interpretation Comments GLUBED (test code = GLUBED) 253 mg/dL 74-106 H Performed by certified laser set up operator at [facility] [id number] 07:49:00* Test Item Value Reference Range Interpretation Comments GLUBED (test code = GLUBED) 109 mg/dL 74-106 H Performed by certified laser set up operator at [facility] COMPREHENSIVE METABOLIC [id number] 07:25:00* Test Item Value Reference Range Interpretation [...] due to change in reagent. COMPREHENSIVE METABOLIC [id number] 07:22:00* Test Item Value Reference Range Interpretation [...] code = ALKP) IUnit/L 45-117 CBC W/AUTO [id number] 06:47:00* Test Item Value Reference Range Interpretation [...] DIFF REQUIRED (test code = MDIFF) NO [id number] 05:49:00* Test Item Value Reference Range Interpretation Comments GLUBED (test code = GLUBED) 81 mg/dL 74-106 N Performed by certified laser set up operator at [facility] [id number] 16:52:00* Test Item Value Reference Range Interpretation Comments GLUBED (test code = GLUBED) 113 mg/dL 74-106 H Performed by certified laser set up operator at [facility] [id number] 12:30:00* Test Item Value Reference Range Interpretation Comments GLUBED (test code = GLUBED) 219 mg/dL 74-106 H Performed by certified laser set up operator at [facility] [id number] 09:03:00* Test Item Value Reference Range Interpretation Comments GLUBED (test code = GLUBED) 236 mg/dL 74-106 H Performed by certified laser set up operator at [facility] [id number] 09:03:00* Test Item Value Reference Range Interpretation Comments GLUBED (test code = GLUBED) 58 mg/dL 74-106 L Performed by certified laser set up operator at [facility] [id number] 07:39:00* Test Item Value Reference Range Interpretation Comments GLUBED (test code = GLUBED) 50 mg/dL 74-106 L Performed by certified laser set up operator at [facility] BASIC METABOLIC [id number] 06:42:00* Test Item Value Reference Range Interpretation [...] CA) 8.3 mg/dL 8.5-10.1 L BASIC METABOLIC [id number] 05:51:00* Test Item Value Reference Range Interpretation [...] CALCIUM (test code = CA) mg/dL 8.5-10.1 [id number] 17:11:00* Test Item Value Reference Range Interpretation Comments GLUBED (test code = GLUBED) 214 mg/dL 74-106 H Performed by certified laser set up operator at [facility] [id number] 08:36:00* Test Item Value Reference Range Interpretation Comments GLUBED (test code = GLUBED) 151 mg/dL 74-106 H Performed by certified laser set up operator at [facility] BASIC METABOLIC [id number] 06:52:00* Test Item Value Reference Range Interpretation [...] 36 mg/dL 74-106 Re sults called to [id number] by [email or web address] 09/07/18 0650Critical results verified and [...] code = CA) 7.7 mg/dL 8.5-10.1 L [id number] 06:52:00* Test Item Value Reference Range Interpretation Comments PHOSPHORUS (test code = PHOS) 4.1 mg/dL 2.5-4.9 N [id number] 06:52:00* Test Item Value Reference Range Interpretation Comments MAGNESIUM (test code = MAG) 1.8 mg/dL 1.8-2.4 N BASIC METABOLIC [id number] 06:26:00* Test Item Value Reference Range Interpretation [...] CALCIUM (test code = CA) mg/dL 8.5-10.1 [id number] 06:26:00* Test Item Value Reference Range Interpretation Comments PHOSPHORUS (test code = PHOS) mg/dL 2.5-4.9 [id number] 06:26:00* Test Item Value Reference Range Interpretation Comments MAGNESIUM (test code = MAG) mg/dL 1.8-2.4 CBC W/O [id number] 06:10:00* Test Item Value Reference Range Interpretation [...] code = MPV) 9.8 fL 6.7-11.0 N [id number] 22:35:00* Test Item Value Reference Range Interpretation Comments GLUBED (test code = GLUBED) 77 mg/dL 74-106 N Performed by certified laser set up operator at [facility] [id number] 16:53:00* Test Item Value Reference Range Interpretation Comments GLUBED (test code = GLUBED) 127 mg/dL 74-106 H Performed by certified laser set up operator at [facility] [id number] 11:28:00* Test Item Value Reference Range Interpretation Comments GLUBED (test code = GLUBED) 87 mg/dL 74-106 N Performed by certified laser set up operator at [facility] [id number] 10:11:00* Test Item Value Reference Range Interpretation Comments GLUBED (test code = GLUBED) 140 mg/dL 74-106 H Performed by certified laser set up operator at [facility] [id number] 08:30:00* Test Item Value Reference Range Interpretation Comments GLUBED (test code = GLUBED) 35 mg/dL 74-106 LL Test performed as P.O.C. by nursing staff.Performed by certified laser set up operator at [facility]Notified Nurse~ BASIC METABOLIC [id number] 07:20:00* Test Item Value Reference Range Interpretation [...] 39 mg/dL 74-106 Re [place]ults [place] [id number] by V.LAB.AG1 09/06/18 0720Critical results verified and [...] CA) 7.8 mg/dL 8.5-10.1 L BASIC METABOLIC [id number] 05:32:00* Test Item Value Reference Range Interpretation [...] = CA) mg/dL 8.5-10.1 AB HEPATITIS B [id number] 05:12:00* Test Item Value Reference Range Interpretation Comments AB HEPATITIS B SURFACE (test code = HBSAB) Non Reactive () Non Reactive: Inconsistent with immunity, less than 10 mIU/mL Reactive: Consistent with immunity, greater than 9.9 mIU/mL [id number] 20:49:00* Test Item Value Reference Range Interpretation Comments GLUBED (test code = GLUBED) 35 mg/dL 74-106 LL Test performed as P.O.C. by nursing staff.Performed by certified laser set up operator at [facility]Doctor Notified~ [id number] 16:17:00* Test Item Value Reference Range Interpretation Comments GLUBED (test code = GLUBED) 216 mg/dL 74-106 H Performed by certified laser set up operator at [facility] BASIC METABOLIC [id number] 08:09:00* Test Item Value Reference Range Interpretation [...] CA) 8.7 mg/dL 8.5-10.1 N BASIC METABOLIC [id number] 07:57:00* Test Item Value Reference Range Interpretation [...] code = CA) mg/dL 8.5-10.1 CBC W/O [id number] 07:39:00* Test Item Value Reference Range Interpretation [...] code = MPV) 10.5 fL 6.7-11.0 N [id number] 21:03:00* Test Item Value Reference Range Interpretation Comments GLUBED (test code = GLUBED) 167 mg/dL 74-106 H Performed by certified laser set up operator at [facility] [id number] 16:41:00* Test Item Value Reference Range Interpretation Comments GLUBED (test code = GLUBED) 202 mg/dL 74-106 H Performed by certified laser set up operator at [facility] [id number] 12:47:00* Test Item Value Reference Range Interpretation Comments GLUBED (test code = GLUBED) 97 mg/dL 74-106 N Performed by certified laser set up operator at [facility] [id number] 10:44:00* Test Item Value Reference Range Interpretation Comments GLUBED (test code = GLUBED) 92 mg/dL 74-106 N Performed by certified laser set up operator at [facility] - US GUIDANCE VAS [id number] 09:55:00 Name: TAY HERNANDEZ [facility] : 1950 Age/S: 68 / F [address] Unit #: [id number] Loc: [place] [address] Phys: Damian Lewis MD Acct: [id number] Dis Date: Status: ADM IN PHONE #: [phone] Exam Date: 08/31/2018 09 FAX #: [phone] Reason: EXAMS: CPT CODE: [id number] US GUIDANCE [facility] ACCESS [id number] Fluoro Time: 18 DAP (Gy m2): 2231 [...] monitored by a trained registered nurse. Physician gumj-xk-fnzf sedation time was 15 minutes. Benefits and [...] rformed followed by insertion of a 15 Prydeinig peel-away sheath. A sub cutaneous tunnel was then created in the usual sterile fashion and a 14.5 Prydeinig tunneled hemodialysis catheter was inserted and positioned [...] Signed Report (DALI NUTRACY) Name: TAY HERNANDEZ [facility] SP : 1950 Age/S: 68 / F [address] Unit #: [id number] Loc: [place] [address] Phys: Damian Walton MD Acct: [id number] Dis Date: Status: ADM IN PHON E #: [phone] Exam Date: 08/31/2018 0935 FAX #: Reason: EXAMS: CPT CODE: [id number] GUIDAN CE VASC ACCESS [id number] Fluoro Time: 18 DAP (Gy m2): 2231 Air Kerma (mGy): 4.49 <Continued> at 0955 Reported and signed by: Damian Lewis M.D. CC: Jose Antonio Nelson MD; Dayo Valadez MD Technologist: [facility] [place] Date/Time: 09/04/2018 (09) Marlene Orig Print D/T: S: 09/04/2018 (0958) PAGE 2 Signed Report - SP FLUORO GUID CTRL ACC [id number] 09:55:00 Name: TAY HERNANDEZ [facility] SP : 1950 Age/S: 68 / F [address] Unit #: [id number] Loc: [place] [address] Phys: Damian Lewis MD Acct: [id number] Dis Date: Status: ADM IN PHONE #: [phone] Exam Date: 08/31/2018 0935 FAX #: [phone] Reason: EXAMS: CPT CODE: [id number] SP FLUORO GUID CTRL ACC DEV 34230 Fluoro Time: DAP (Gy m2): Air Kerma [...] monitored by a trained registered nurse. Physician hvgq-lo-yals sedation time was 15 minutes. Benefits and [...] rformed followed by insertion of a 15 Prydeinig peel-away sheath. A sub cutaneous tunnel was then created in the usual sterile fashion and a 14.5 Prydeinig tunneled hemodialysis catheter was inserted and positioned [...] Signed Report (DALI NUTRACY) Name: TAY HERNANDEZ [facility] : 1950 Age/S: 68 / F [address] Unit #: [id number] Loc: [place] [address] Phys: Damian Walton MD Acct: [id number] Dis Date: Status: ADM IN PHON E #: [phone] Exam Date: 08/31/2018 0935 FAX #: Reason: EXAMS: CPT CODE: [id number] SP FLUORO GUID CTRL ACC DEV 23509 Fluoro Time: DAP (Gy m2): Air Kerma (mGy): <Continued> at 0955 Reported and signed by: Damian Lewis M.D. CC: Jose Antonio Nelson MD; Dayo Valadez MD Technologist: Andrea Quick [facility] Date/Time: 09/04/2018 (954) Marlene Orig Print D/T: S: 09/04/2018 (51) PAGE 2 Signed Report GLUBED 2018-09-04 09:06:00* Test Item Value Reference Range Interpretation Comments GLUBED (test code = GLUBED) 74 mg/dL 74-106 N Performed by certified laser set up operator at [facility] BASIC METABOLIC [id number] 07:46:00* Test Item Value Reference Range Interpretation [...] mg/dL 74-106 LL Re sults called to [id number] by V.LAB.ARDEN 09/04/18 0746Critical results verified and [...] CA) 8.2 mg/dL 8.5-10.1 L BASIC METABOLIC [id number] 06:56:00* Test Item Value Reference Range Interpretation [...] CALCIUM (test code = CA) mg/dL 8.5-10.1 [id number] 00:14:00* Test Item Value Reference Range Interpretation Comments GLUBED (test code = GLUBED) 61 mg/dL 74-106 L Performed by certified laser set up operator at [facility] [id number] 17:17:00* Test Item Value Reference Range Interpretation Comments GLUBED (test code = GLUBED) 107 mg/dL 74-106 H Performed by certified laser set up operator at [facility] [id number] 12:08:00* Test Item Value Reference Range Interpretation Comments GLUBED (test code = GLUBED) 128 mg/dL 74-106 H Performed by certified laser set up operator at [facility] CBC W/AUTO [id number] 09:08:00* Test Item Value Reference Range Interpretation [...] (test code = MDIFF) NO BASIC METABOLIC [id number] 07:44:00* Test Item Value Reference Range Interpretation [...] = CA) 8.5 mg/dL 8.5-10.1 N CALCIUM [id number] 07:44:00* Test Item Value Reference Range Interpretation Comments CALCIUM IONIZED (test code = MAG) 1.16 mmol/L 1.12-1.32 N BASIC METABOLIC [id number] 07:26:00* Test Item Value Reference Range Interpretation [...] (test code = CA) mg/dL 8.5-10.1 CALCIUM [id number] 07:26:00* Test Item Value Reference Range Interpretation Comments CALCIUM IONIZED (test code = MAG) 1.16 mmol/L 1.12-1.32 N BASIC METABOLIC [id number] 07:14:00* Test Item Value Reference Range Interpretation [...] (test code = CA) mg/dL 8.5-10.1 CALCIUM [id number] 07:14:00* Test Item Value Reference Range Interpretation Comments CALCIUM IONIZED (test code = MAG) 1.16 mmol/L 1.12-1.32 N [id number] 21:07:00* Test Item Value Reference Range Interpretation Comments GLUBED (test code = GLUBED) 138 mg/dL 74-106 H Performed by certified laser set up operator at [facility] [id number] 16:51:00* Test Item Value Reference Range Interpretation Comments GLUBED (test code = GLUBED) 121 mg/dL 74-106 H Performed by certified laser set up operator at [facility] [id number] 12:18:00* Test Item Value Reference Range Interpretation Comments GLUBED (test code = GLUBED) 181 mg/dL 74-106 H Performed by certified laser set up operator at [facility] [id number] 08:21:00* Test Item Value Reference Range Interpretation Comments GLUBED (test code = GLUBED) 86 mg/dL 74-106 N Performed by certified laser set up operator at [facility] [id number] 06:19:00* Test Item Value Reference Range Interpretation Comments GLUBED (test code = GLUBED) 80 mg/dL 74-106 N Performed by certified laser set up operator at [facility] [id number] 20:43:00* Test Item Value Reference Range Interpretation Comments GLUBED (test code = GLUBED) 102 mg/dL 74-106 N Performed by certified laser set up operator at [facility] [id number] 20:43:00* Test Item Value Reference Range Interpretation Comments GLUBED (test code = GLUBED) 64 mg/dL 74-106 L Performed by certified laser set up operator at [facility] [id number] 15:23:00* Test Item Value Reference Range Interpretation Comments GLUBED (test code = GLUBED) 185 mg/dL 74-106 H Performed by certified laser set up operator at [facility] [id number] 15:05:00* Test Item Value Reference Range Interpretation Comments GLUBED (test code = GLUBED) 103 mg/dL 74-106 N Performed by certified laser set up operator at [facility] BASIC METABOLIC [id number] 05:42:00* Test Item Value Reference Range Interpretation [...] CA) 7.9 mg/dL 8.5-10.1 L CBC W/O [id number] 04:46:00* Test Item Value Reference Range Interpretation [...] code = MPV) 9.7 fL 6.7-11.0 N [id number] 20:26:00* Test Item Value Reference Range Interpretation Comments GLUBED (test code = GLUBED) 146 mg/dL 74-106 H Performed by certified laser set up operator at [facility] [id number] 17:56:00* Test Item Value Reference Range Interpretation Comments GLUBED (test code = GLUBED) 128 mg/dL 74-106 H Performed by certified laser set up operator at [facility] [id number] 12:40:00* Test Item Value Reference Range Interpretation Comments GLUBED (test code = GLUBED) 186 mg/dL 74-106 H Performed by certified laser set up operator at [facility] - XR CHEST 1 [id number] 10:06:00 FAX: Jose Antonio Stephens MD [phone] [place]: B St: [facility] FAX: Dayo Valadez MD [phone] Name: HERNANDEZTAY [facility] : 1950 Age/S: 68/F [address] Unit #: [id number] Loc: V.3031 [place] [address] Phys: Damian Lewis MD Acct: [id number] Dis Date: Status: ADM IN PHONE #: [phone] Exam Date: 08/31/2018 0947 FAX #: [phone] Reason: HD CATH EXAMS: CPT CODE: [id number] XR CHEST 1 V 52623 HISTORY: HD catheter placement. COMPARISON: September 15, [...] 08/31/2018 (1009) PAGE 1 Signed Re port [id number] 08:44:00* Test Item Value Reference Range Interpretation Comments GLUBED (test code = GLUBED) 105 mg/dL 74-106 N Performed by certified laser set up operator at [facility] BASIC METABOLIC [id number] 05:52:00* Test Item Value Reference Range Interpretation [...] code = CA) 8.4 mg/dL 8.5-10.1 L [id number] 05:52:00* Test Item Value Reference Range Interpretation Comments PHOSPHORUS (test code = PHOS) 4.4 mg/dL 2.5-4.9 N [id number] 05:52:00* Test Item Value Reference Range Interpretation Comments MAGNESIUM (test code = MAG) 2.1 mg/dL 1.8-2.4 N BASIC METABOLIC [id number] 05:50:00* Test Item Value Reference Range Interpretation [...] code = CA) 8.4 mg/dL 8.5-10.1 L [id number] 05:50:00* Test Item Value Reference Range Interpretation Comments PHOSPHORUS (test code = PHOS) mg/dL 2.5-4.9 [id number] 05:50:00* Test Item Value Reference Range Interpretation Comments MAGNESIUM (test code = MAG) mg/dL 1.8-2.4 CBC W/O [id number] 05:39:00* Test Item Value Reference Range Interpretation [...] code = MPV) 9.8 fL 6.7-11.0 N [id number] 00:30:00* Test Item Value Reference Range Interpretation Comments GLUBED (test code = GLUBED) 180 mg/dL 74-106 H Performed by certified laser set up operator at [facility] PROTHROMBIN [id number] 18:53:00* Test Item Value Reference Range Interpretation [...] (2.5-3.5) IS PATIENT ON ANTICOAGULANTS? NTHROMBOPLASTIN TIME [id number] 18:53:00* Test Item Value Reference Range Interpretation Comments THROMBOPLASTIN TIME PARTIAL (test code = PTT) 29.8 seconds 25.0-36. 5 N IS PATIENT ON ANTICOAGULANTS? [id number] 17:41:00* Test Item Value Reference Range Interpretation Comments GLUBED (test code = GLUBED) 103 mg/dL 74-106 N Performed by certified laser set up operator at [facility] [id number] 17:41:00* Test Item Value Reference Range Interpretation Comments GLUBED (test code = GLUBED) 132 mg/dL 74-106 H Performed by certified laser set up operator at [facility] AG HEPAT B [id number] 16:41:00* Test Item Value Reference Range Interpretation Comments AG HEPAT B SURF (test code = HBSAG) Nonreactive Index Nonreactive [id number] 08:57:00* Test Item Value Reference Range Interpretation Comments GLUBED (test code = GLUBED) 76 mg/dL 74-106 N Performed by certified laser set up operator at [facility] BASIC METABOLIC [id number] 06:09:00* Test Item Value Reference Range Interpretation [...] code = CA) 8.2 mg/dL 8.5-10.1 L [id number] 06:09:00* Test Item Value Reference Range Interpretation Comments PHOSPHORUS (test code = PHOS) 4.3 mg/dL 2.5-4.9 N [id number] 06:09:00* Test Item Value Reference Range Interpretation Comments MAGNESIUM (test code = MAG) 2.1 mg/dL 1.8-2.4 N CBC W/O [id number] 05:47:00* Test Item Value Reference Range Interpretation [...] code = MPV) 10.0 fL 6.7-11.0 N [id number] 23:10:00* Test Item Value Reference Range Interpretation Comments GLUBED (test code = GLUBED) 84 mg/dL 74-106 N Performed by certified laser set up operator at [facility] [id number] 22:13:00* Test Item Value Reference Range Interpretation Comments AMYLASE (test code = ALEC) 92 Unit/L 25-115 N SPECIMEN COMMENTS: add onSPECIMEN COMMENTS: add on [id number] 22:13:00* Test Item Value Reference Range Interpretation Comments LIPASE (test code = LIP) 355 U/L 73.0-393.0 N SPECIMEN COMMENTS: add onSPECIMEN COMMENTS: add on [id number] 21:50:00* Test Item Value Reference Range Interpretation Comments GLUBED (test code = GLUBED) 54 mg/dL 74-106 L Performed by certified laser set up operator at [facility] COMPREHENSIVE METABOLIC [id number] 19:18:00* Test Item Value Reference Range Interpretation [...] range due to change in reagent. PROTHROMBIN [id number] 17:45:00* Test Item Value Reference Range Interpretation [...] (2.5-3.5) IS PATIENT ON ANTICOAGULANTS? NCBC W/AUTO [id number] 17:27:00* Test Item Value Reference Range Interpretation [...] DIFF REQUIRED (test code = MDIFF) NO [id number] 17:14:00* Test Item Value Reference Range Interpretation Comments GLUBED (test code = GLUBED) 242 mg/dL 74-106 H Performed by certified laser set up operator at [facility] CHEM [id number] 10:17:0010[facility]annCHEM [id number] 10:17:008.5 [facility] HermannCHEM [id number] 10:17:0023[facility] HermannCHEM PANEL 2018-08-25 10:17:0014.0[facility] HermannCHEM [id number] 10:17:91984Mhltfcgz HermannCHEM [id number] 10:17:0066[facility] HermannCHEM RDMPW7738-07-80 10:17:004.0[facility] HermannCHEM NLKDK7902-34-23 10:17:62674Txlilqhm HermannCHEM XKFWY9427-52-86 10:17:004.49[facility] HermannCHEM [id number] 10:17:80314 [facility] NyhphynIUDHRHPKINTE4363-33-37 20:15:55281Vuezqcxk HermannELECTROLYTES 2018-08-24 20:15:008.3[facility] QpsndgnORYUJQPBMIMH9202-51-04 20:15:0012.0 [facility] FlpuxgiFCAGZLWHXPWS9889-15-35 20:15:0023[facility] HermannELECTROLYTES 2018-08-24 20:15:009[facility] QhrffjdTZXZSKJWFLON9814-03-64 20:15:84793Doefxeld UxqepqkWBEPPCCFEJOG1458-51-62 20:15:004.67[facility] TwophltBFLJCGVDGOXD0327-51-31 20:15:91871Krnybmdr PgllireXSPRWUMXUFYM4470-63-79 20:15:0070[facility] UUHRVXIPTZYU5778-16-97 20:15:004.0[facility]annURINE AND NIWSB3397-74-87 05:15:001[facility]annURINE AND FVLYN0728-65-84 05:15:001[facility] URINE AND [id number] 05:15:00Negative (08/24/18 12:15 AM)[facility] URINE AND [id number] 05:15:00Negative *NA*(08/24/18 12:15 AM)[facility] AND JVJCI0009-53-46 05:15:00* Test Item Value Reference Range Interpretation Comments UA pH (test code = UA pH) 5.0 1 5.0-8.0 [facility] AND [id number] 05:15:00* Test Item Value Reference Range Interpretation Comments UA Spec Grav (test code = UA Spec Grav) 1.012 1 [facility] [id number] 05:15:00Negative (08/24/18 12:15 AM) [facility] [id number] 05:15:00Negative (08/24/18 12:15 AM) [facility] [id number] 05:15:00Negative *NA*(08/24/18 12:15 AM)[facility] [id number] 05:15:00Slight *ABN*(08/24/18 12:15 AM)[facility] [id number] 05:15:00Yellow *NA*(08/24/18 12:15 AM)[facility]annCHEM [id number] 03:22:17842Oasuhpdf HermannCHEM PANEL 2018-08-24 03:22:008[facility] HermannCHEM [id number] 03:22:000.5[facility] HermannCHEM [id number] 03:22:0018[facility] HermannCHEM BEDCM6796-98-03 03:22:02326Senfujkl HermannCHEM AEQVV7741-08-39 03:22:03217Mozimdyu HermannCHEM JQMQE8385-79-49 03:22:0072[facility] HermannCHEM FQQCB8660-32-15 03:22:004.1 [facility]annCHEM [id number] 03:22:71054Imviufda HermannCHEM PANEL 2018-08-24 03:22:005.01[facility] HermannCHEM WGKVZ9698-36-54 03:22:88893Pokakfem HermannCHEM YMDTN2321-53-18 03:22:0026[facility] HermannCHEM YJDET0125-49-37 03:22:003.6[facility] HermannCHEM MRJMR5587-43-12 03:22:0022[facility] HermannCHEM NNEWP6439-36-56 03:22:009.0[facility] HermannCHEM PIMGD4214-76-07 03:22:007.9 [facility]annCHEM SMWUY1434-31-57 03:22:00* Test Item Value Reference Range Interpretation Comments B/C Ratio (test code = B/C Ratio) 14 1 6-25 [facility] HermannCHEM [id number] 03:22:0012.1[facility] HermannCHEM PANEL 2018-08-24 03:22:004.3[facility] HermannCHEM SKVAE0556-27-14 03:22:00* Test Item Value Reference Range Interpretation Comments A/G Ratio (test code = A/G Ratio) 0.8 1 0.7-1.6 [facility] NdbvhiaKADVDZYDGK5066-64-57 03:22:008.2[facility] HermannHEMATOLOGY 2018-08-24 03:22:57214Rycxhdff AnupdlrMZSMOBDANO0861-58-78 03:22:0033.6[facility] JbpgeknWDLTFRHFOP7713-75-17 03:22:00* Test Item Value Reference Range Interpretation Comments MCH (test code = MCH) 29.9 pg 27.0-31.0 [facility] XnkukrzSRYQLCYCKC0046-47-32 03:22:0092.8[facility] HermannHEMATOLOGY 2018-08-24 03:22:0014.8[facility] TkdlpowDNBEQUZYHC4428-41-47 03:22:0032.2[facility] HmlbfarDXSICVYKSG8519-35-60 03:22:0010.8[facility] YijmvdbSOHEWKCANB2453-69-73 03:22:003.63[facility] KldbdyfXUSRXXWXDX8579-84-36 03:22:007.0[facility] [place] XLRJDOYERF0413-62-07 03:22:000.5[facility] AwnmecwLUKAPHWIEE8042-66-51 03:22:002.5 [facility] IqfxsucEKJHHIVJDA7068-77-55 03:22:0084.0[facility] HermannHEMATOLOGY 2018-08-24 03:22:0012.0[facility] AztzvpmQYZXVMIYYY5457-93-95 03:22:000.1[facility] FcdoroxQSJWFJSAOY7684-73-85 03:22:000.2[facility] XnwjnwyCWJIKXANLP9591-64-28 03:22:000.8[facility] PynaxllLFYSTGEBIO0259-06-28 03:22:005.9[facility] EXLIQTDSDV6532-20-30 03:22:001.0[facility] HermannU/S, ABDOMINAL, COMPLETE 2018 11:50:00Reason for [...] MDReport Verified Date/Time: 2018 11:50:33 Reading Location: [address] Ultrasound Reading Room Enma ctronically signed by: CAMILLA NEGRON M.D. on 2018 11:50 AM HEMOGLOBIN [id number] 11:31:00* Test Item Value Reference Range Interpretation Comments HEMOGLOBIN A1C (BEAKER) (test code = 368) 7.1 % 4.3-6.1 H OCCULT BLOOD, [id number] 10:39:00* Test Item Value Reference Range Interpretation Comments FECAL OCCULT BLOOD (BEAKER) (test code = 618) Negative Negative OCCULT BLOOD, [id number] 10:39:00* Test Item Value Reference Range Interpretation Comments FECAL OCCULT BLOOD (BEAKER) (test code = 618) Negative Negative LIPID [id number] 10:19:00* Test Item Value Reference Range Interpretation [...] 130-159 High 160-189 Very High >=190 PROTHROMBIN TIME/[id number] 09:55:00* Test Item Value Reference Range Interpretation [...] pat ients with mechanical heart valves.T SPOT [id number] 08:48:00* Test Item Value Reference Range Interpretation Comments T-SPOT TB (BEAKER) (test code = 1683) Negative NEG CONTROL SPOT COUNT (BEAKER) (test code = 1684) 0 PANEL A SPOT (BEAKER) (test code = 1685) 0 PANEL B SPOT (BEAKER) (test code = 1686) [address] (BEAKER) (test code = 1687) 0 SCAN RESULT (test code = 0128613) URINE [id number] 15:02:00* Test Item Value Reference Range Interpretation [...] code = 47) R >100,000 col/mL skin bbydiLFQ5583-14-55 13:51:00* Test Item Value Reference Range Interpretation Comments RPR SCREEN (Practice Fusion) (test code = 420) Nonreactive Nonreactive HEMOGLOBIN [id number] 12:45:00* Test Item Value Reference Range Interpretation Comments HEMOGLOBIN A1C (Practice Fusion) (test code = 368) 6.8 % 4.3-6.1 H VARICELLA ZOSTER ANTIBODY, [id number] 11:38:00* Test Item Value Reference Range Interpretation Comments VARICELLA ZOSTER IGG (AL) (Practice Fusion) (test code = 3197) > VARICELLA ZOSTER RESULT INTERPRETATIONS: <=0.8 Al Nonreactive: Presumed non-immune to VZV 0.9-1.0 Al Equivocal >=1.1 Al Reactive: Presumed immune to VZVCYTOMEGALOVIRUS ANTIBODY, [id number] 11:38:00* Test Item Value Reference Range Interpretation Comments CYTOMEGALOVIRUS, IGG (Practice Fusion) (test code = 3429) Positive Negat ric, Equivocal A CMV IgG Result Interpretation: </= 0.8 Al Negative 0.9-1.0 Al Equivocal > /=1.1 Al PositiveCYTOMEGALOVIRUS ANTIBODY, [id number] 11:38:00* Test Item Value Reference Range Interpretation Comments CYTOMEGALOVIRUS IGM ANTIBODY (Practice Fusion) (test code = 3437) Neg ative Negative, Equivocal CMV IgM Result Interpretation: </= 0.8 Al Negative 0.9-1.0 Al Equivocal > /= 1.1 Al PositiveEBV ANTIBODY, [id number] 11:38:00* Test Item Value Reference Range Interpretation Comments MAKENZIE JAMES VIRAL CAPSID ANTIGEN IGG (Practice Fusion) (test code = 3415) Positive Negative, Equivocal A Makenzie James Viral Capsid Antigen IgG Result Interpretation: </= 0.8 Al Negative 0.9-1.0 Al Equivocal >/= 1.1 Al PositiveEBV ANTIBODY, [id number] 11:38:00* Test Item Value Reference Range Interpretation Comments MAKENZIE JAMES VIRAL CAPSID ANTIGEN IGM (BEAKER) (test code = 3418) Negative Negative, Equivocal Makenzie James Viral Capsid Antigen IgM Result Interpretation: </= 0.8 Al Negative 0.9-1.0 Al Equivocal >/= 1.1 Al PositivePTH, [id number] 10:42:00* Test Item Value Reference Range Interpretation Comments PARATHYROID HORMONE INTACT (BEAKER) (test code = 577) 677.5 pg/mL 8.5-72.5 H HEPATITIS B SURFACE WYPKFSPX7527-76-15 09:49:00* Test Item Value Reference Range Interpretation Comments HEPATITIS B SURFACE ANTIBODY (BEAKER) (test code = 647) < mIU/mL <8.0 COMPREHENSIVE METABOLIC [id number] 09:48:00* Test Item Value Reference Range Interpretation [...] NOT APPLICABLE FOR DIALYSIS PATIENTS. URINALYSIS W/ WPUHESHCFAE6998-15-90 09:41:00* Test Item Value Reference Range Interpretation [...] 516) 1 /HPF SOURCE(BEAKER) (test code = 9729) HEPATITIS B SURFACE SYOOUVZ7790-13-20 09:41:00* Test Item Value Reference Range Interpretation Comments HEPATITIS B SURFACE ANTIGEN (2) (BEAKER) (test code = 2585) Nonreactive Nonreactive HEPATITIS B CORE ANTIBODY, [id number] 09:41:00* Test Item Value Reference Range Interpretation Comments HEPATITIS B CORE IGM ANTIBODY (BEAKER) (test code = 645) Non reactive Nonreactive HEPATITIS C YZKMBLWX3592-42-14 09:41:00* Test Item Value Reference Range Interpretation Comments HEPATITIS C ANTIBODY (BEAKER) (test code = 367) Nonreactive Nonrea ctive HIV-1 ANTIGEN WITH HIV-1/2 IUWVRHIT7673-16-06 09:41:00* Test Item Value Reference Range Interpretation Comments HIV-1 ANTIGEN WITH HIV 1\\T\\2 ANTIBODY (2) (BEAKER) (te st code = 2586) Nonreactive Nonreactive URIC [id number] 09:22:00* Test Item Value Reference Range Interpretation Comments URIC ACID (BEAKER) (test code = 773) 5.9 mg/dL 2.6-7.2 TTQOOTFRCR8901-00-50 09:22:00* Test Item Value Reference Range Interpretation Comments PHOSPHORUS (BEAKER) (test code = 604) 4.2 mg/dL 2.3-4.7 GAMMA GLUTAMYL TRANSFERASE (GGT)2018-03-28 09:22:00* Test Item Value Reference Range Interpretation Comments GAMMA GLUTAMYL TRANSFERASE (BEAKER) (test code = 364) 61 U/L 9-64 LACTATE DEHYDROGENASE (LDH)2018-03-28 09:22:00* Test Item Value Reference Range Interpretation Comments LACTATE DEHYDROGENASE (BEAKER) (test code = 635) 179 U/L 125-2 20 PT/[id number] 09:01:00* Test Item Value Reference Range Interpretation [...] mechanical heart valves.CBC W/PLT COUNT & AUTO PUBQWMQRKBWL5592-16-39 08:54:00* Test Item Value Reference Range Interpretation [...] code = 2801) 0 % 0-1 PARATHYROID [id number] 02:33[facility]000.90[facility] 2017-07-26 02:33:000.95[facility] [id number] 21:32:000.07[facility] [id number] 21:32:0014[facility]annCHE[facility] [id number] 21:32:50746Zgdqwneb HermannCHEM [id number] 21:32:0038[facility]CHE[facility] [id number] 21:32:0043[facility] [id number] 21:32:00* Test Item Value Reference Range Interpretation Comments A/G Ratio (test code = A/G Ratio) 0.6 1 0.7-1.6 [facility] [id number] 21:32:002.8[facility]annCHE[facility] PANEL 2017-07-25 21:32:007.5[facility] [id number] 21:32:004.7[facility]CHE[facility] [id number] 21:32:00* Test Item Value Reference Range Interpretation Comments B/C Ratio (test code = B/C Ratio) 9 1 6-25 [facility] [id number] 21:32:006.9[facility]annCHEM PANEL 2017-07-25 21:32:000.5[facility]annCHEM PQMTA0887-53-41 21:32:0016.4[facility]annCHEM HILEI1103-37-13 21:32:0022[facility]annCHEM SFYHV1075-76-52 21:32:49945Vqxxvbxz HermannCHEM AVBYD1909-47-57 21:32:003.21[facility]annCHEM VTNWT1479-60-14 21:32:0030[facility]annCHEM ZNPJB4192-28-03 21:32:004.4 [facility]annCHE[facility] ACUZA7333-08-82 21:32:55914Uygaxypi HermannCHEM PANEL 2017-07-25 21:32:94919Ibvxpivw MjsnlyoYINZCGXXVZ7523-37-10 21:32:0085.9[facility] WkdxdzuWMQKNKOPZU7861-72-78 21:32:0013.4[facility] YrjwxdxXIXLENHERD4184-87-59 21:32:007.6[facility] WryeulbAZEWBAJTKI6024-21-72 21:32:00* Test Item Value Reference Range Interpretation Comments MCH (test code = MCH) 28.6 pg 27.0-31.0 [facility] ZqjrhbgMSRUNYYSIB1449-10-71 21:32:0033.3[facility] HermannHEMATOLOGY 2017-07-25 21:32:0010.8[facility] IpqjodkMRKOSEXEQS3332-76-81 21:32:0032.5[facility] PpinosqLDKHOYMXKX5747-04-93 21:32:003.78[facility] MfofnurZKTMKYVLIG4036-76-55 21:32:007.5[facility] DkrvvjoJDHJAGIEEF0951-70-44 21:32:86640Vhhkgiej [place] AWOKEJXJHY4781-32-25 21:32:000.1[facility] GujulcdMRWDQQHCMN6588-56-70 21:32:000.2 [facility] BbosagySPCTMUPRDD4792-92-38 21:32:000.5[facility] HermannHEMATOLOGY 2017-07-25 21:32:001.5[facility] BferwyxNEEPQGQDCI9562-57-44 21:32:001.2[facility] FtifvhbVGGVWVXQAC7063-87-42 21:32:005.3[facility] OfpmnbbFVQQNWEQWD9474-98-95 21:32:0019.5[facility] BjfmnqyGERHYHDSAX5958-62-20 21:32:006.1[facility] WVSZURCDYZ5406-37-11 21:32:002.7[facility] IupocnfYZWJCOERNI2084-90-96 21:32:00 70.5[facility] HermannCARDIAC BNJMDDB0659-40-89 18:16:001.4[facility] HermannCARDIAC ANWIRMS2058-50-90 18:16:36473Fnnaboua HermannCARDIAC VBBCVSB4998-12-66 18:16:00< 0.02[facility] HermannCARDIAC EWWPPNG7392-06-35 18:16:0058[facility]annCARDIAC MDKPKFR8149-00-26 18:16:000.8[facility]annCHEM OZHZF3181-34-51 18:16:0020 [facility]annCHE[facility] XSEQV4785-95-97 18:16:000.8[facility] HermannCHEM PANEL 2016-10-19 18:16:001.0[facility]annCHEM WPWSD3715-23-54 18:16:003.8[facility]annCHEM JDEFD0980-29-40 18:16:0012.1[facility]annCHEM VKZAN3723-91-18 18:16:0011[facility]annCHEM ULOHR2819-96-19 18:16:28168Ppwwirwf HermannCHEM XAICD4639-77-27 18:16:009[facility]annCHE[facility] LHYAW4626-16-99 18:16:003.0 [facility]annCHE[facility] PRCUA5136-82-10 18:16:0015[facility]annCHEM PANEL 2016-10-19 18:16:006.8[facility]annCHEM IECWR6433-03-21 18:16:007.8[facility]annCHEM YYARF6380-94-85 18:16:0024[facility]annCHEM CTWBC3655-68-37 18:16:004.1[facility]annCHEM EQSIT8313-58-97 18:16:19905Veomgvbe HermannCHEM HYGWS2625-85-26 18:16:60708Sojmfvlp HermannCHEM SONKO5035-27-72 18:16:002.50 [facility]CHE[facility] RVIUD7043-94-94 18:16:22154Gefwwcrx HermannCHEM PANEL 2016-10-19 18:16:0027[facility] SgjafhzPVJAKTMAYJ8794-27-21 18:16:000.4[facility] LyprmlbRLSBIBJPTS1673-25-60 18:16:001.7[facility] FciueorXLEIKXUGTO3437-67-80 18:16:006.2[facility] UonmthfGQKXOATIOD0775-78-43 18:16:000.1[facility] [place] ZNHMMWZDWC8098-71-06 18:16:000.3[facility] VdumehyITEFWRFDBV9175-53-38 18:16:004.9 [facility] CcnlhvtJHGSOCTPIN6143-29-27 18:16:0019.6[facility] HermannHEMATOLOGY 2016-10-19 18:16:0071.9[facility] KtybiwpRHQIBOPTAY8014-14-43 18:16:000.6[facility] FgamrnxPKZMBOWWQZ5897-22-26 18:16:003.0[facility] PqstxjyYUTRGUYGFK8104-29-37 18:16:003.48[facility] DgonzcpRETQSYHETR5728-26-41 18:16:008.6[facility] MJLZQSAZHS4983-35-97 18:16:0087.2[facility] ToujxdcLDRMIQOSXW9209-06-75 18:16:00 30.4[facility] KbwshsrBQODCFTLKE0614-41-99 18:16:0010.1[facility] HermannHEMATOLOGY 2016-10-19 18:16:006.9[facility] ThtcikpPRZKFCOQGH4169-28-98 18:16:00* Test Item Value Reference Range Interpretation Comments MCH (test code = MCH) 29.0 pg 27.0-31.0 [facility] UsyrdzlTKSDEPKLJE4724-24-03 18:16:0033.3[facility] HermannHEMATOLOGY 2016-10-19 18:16:83668Glttbiix YnyflfgIVQZXCLVAA8195-14-86 18:16:0014.1[facility] GnionnvKUYCYNBCEN5964-91-88 18:16:00* Test Item Value Reference Range Interpretation Comments PT (test code = PT) 13.8 s 12.0-14.7 [facility] CcytbuiXQJRGDETNX9286-12-54 18:16:001.04[facility] HermannHEMATOLOGY 2016-10-19 18:16:00* Test Item Value Reference Range Interpretation Comments PTT (test code = PTT) 31.3 s 22.9-35.8 [facility]URINE AND GEWZV5913-34-62 18:16:00Large *ABN*(10/19/16 1:16 PM) [facility] IUVCQ3183-27-15 18:16:0014[facility]UR[facility] AND VJVDY0795-00-28 18:16:00Negative (10/19/16 1:16 PM)[facility] STOOL 2016-10-19 18:16:00Negative (10/19/16 1:16 PM)[facility] STOOL 2016-10-19 18:16:00>182[facility] AND FSFHH1632-17-82 18:16:00Yellow *NA*(10/19/16 1:16 PM)[facility] TQNOG5689-41-46 18:16:005.0 [facility] ZAOBV7682-04-35 18:16:00Marked *ABN*(10/19/16 1:16 PM) [facility] QNWJS4328-98-76 18:16:001.014[facility] AND XQMWA7500-29-99 18:16:00Negative *NA*(10/19/16 1:16 PM)[facility]annCHEM PANEL 2016-02-18 18:44:0019[facility] HermannCHEM UYTMW8068-60-75 18:44:002.60[facility]annCHEM INUCN5733-61-34 18:44:0023[facility] HermannCHEM NDNEV8045-57-46 18:44:004.4[facility] HermannCHEM SDPSY9866-93-78 18:44:52675Kuneeyuv HermannCHEM KHUKT8740-59-01 18:44:73557Nmzjyrtf HermannCHEM OZEAZ0516-26-79 18:44:008.0 [facility]annCHE[facility] VMFBT7202-37-65 18:44:63070Stvkqlis HermannCHEM PANEL 2016-02-18 18:44:0027[facility] HermannCHEM NAXRF7514-07-06 18:44:0013.4[facility] AwhmsmgHQCPFAAPTI9323-52-10 18:44:004.34[facility] MoizozeZBHCSRRZES2907-11-62 18:44:006.9[facility] VepfrowSLLLHGCTOG3371-99-02 18:44:0035.6[facility] UPJRVMMJZM4340-60-90 18:44:0012.0[facility] XodozrgIVKNIQGGOF0307-94-66 18:44:00 408[facility] DizwqnpPOHHIHDGPQ4583-64-52 18:44:0014.6[facility] HermannHEMATOLOGY 2016-02-18 18:44:00* Test Item Value Reference Range Interpretation Comments MCH (test code = MCH) 27.7 pg 27.0-31.0 [facility] WtpmfwvQRVJHEEWCR8547-39-27 18:44:0033.8[facility] HermannHEMATOLOGY 2016-02-18 18:44:007.6[facility] RrfrrfpVLNWSQMNCC0522-51-33 18:44:0082.0[facility] PshnhsbKLUKWOIPPA5824-18-00 18:44:004.9[facility] BuphfrwOGFEPYSHBA4695-27-48 18:44:000.1[facility] WavpshaAAAQRPFPRX4148-20-67 18:44:000.3[facility] ULHFNDHUAO7445-17-73 18:44:001.5[facility] ZvarqobJCVHCIHJMF1697-82-03 18:44:000.9 [facility] ZxacdyjXWVSYWJGHM0667-11-34 18:44:002.0[facility] HermannHEMATOLOGY 2016-02-18 18:44:000.1[facility] ZjknzufANOMMUJRTA6108-27-20 18:44:004.4[facility] VhmjkknACJRGSYHPR2633-46-11 18:44:0021.4[facility] HlrwyerWOSKQXHZAW7381-72-53 18:44:0071.3[facility]annUR[facility] AND OYNIH5741-82-53 18:44:00Trace *ABN*(02/18/16 1:44 PM)[facility] NTHEN9306-87-10 18:44:005 [facility] ADZIS3968-22-62 18:44:001[facility] AND ENJYI7593-67-76 18:44:00Negative (02/18/16 1:44 PM)[facility] AND YQAWG7822-10-84 18:44:00Negative (02/18/16 1:44 PM)[facility] AND NXVAV1788-92-21 18:44:00Negative *NA*(02/18/16 1:44 PM)[facility] IPBPN2504-63-43 18:44:005.0[facility] AND GYGQO5661-49-82 18:44:00 Slight *ABN*(02/18/16 1:44 PM)[facility] OFNAY8165-46-77 18:44:00 1.018[facility]UR[facility] AND XCXNN8077-75-61 18:44:00Yellow *NA*(02/18/16 1:44 PM)[facility] LzugsrrUBYJOGWHW1990-60-04 12:12:4928[facility] HermannCHEMISTRY 2012-09-07 12:12:493.9[facility] DvejsrxZRMCLDSCK3382-67-41 12:12:4925[facility] CvoralfMQQOBBQIJ2760-48-33 12:12:490.4[facility] IxhsibaRCLMFIRMJ9077-12-25 12:12:498.7[facility] HuiuqnjEAERMKHDV0697-07-19 12:12:497.6[facility] CSRCHXQWT3991-77-96 12:12:498[facility] HcxhqvwWFPOHFZPB7269-16-17 12:12:4913.7 [facility] QzvigsdXSNXSVUKE9138-80-45 12:12:4912[facility] HermannCHEMISTRY 2012-09-07 12:12:490.9[facility] StjzyuvOLLPYUGXR3498-13-99 12:12:93590Qcmrajsj PotkfiiEPREUGTDB2470-83-39 12:12:491.9[facility] MilvmmhIEZMGGPJI4242-69-00 12:12:22424Cjnkurmp QxiaquwCRUVJCPQD1527-86-58 12:12:4923[facility] [place] KYXJMZJXA7309-76-90 12:12:493.7[facility] OnxbezyJKJALBTLP7246-13-66 12:12:4994 [facility] KngrejcYNQRFYQDX5235-95-95 12:12:493.7[facility] HermannCHEMISTRY 2012-09-07 12:12:4914[facility] TxxnozvVKDYKJOTE5469-10-12 12:12:28867Gypjpbkh HermannBEDSIDE GLUCOSE AIDXQFG2461-75-71 11:21:20506Lejrtpyd Ryne
== END 2020-02-06 19:29 | DRG 377 ==
LOC: ER 12:23 → ERHOLD 13:41 → ICU 16:48 → MED/SURG3 02-02 10:44
PROVIDERS: ADMIT Internal Medicine; ATTEND Internal Medicine
PROC: 3E1M39Z Irrigation of Peritoneal Cavity using Dialysate, Percutaneous Approach (ICD-10-PCS; 2020-02-01)
PROC: 0DB78ZX Excision of Stomach, Pylorus, Via Natural or Artificial Opening Endoscopic, Diagnostic (ICD-10-PCS; 2020-02-04)
PROC: 0DB68ZX Excision of Stomach, Via Natural or Artificial Opening Endoscopic, Diagnostic (ICD-10-PCS; 2020-02-04)
PROC: 0DB98ZX Excision of Duodenum, Via Natural or Artificial Opening Endoscopic, Diagnostic (ICD-10-PCS; principal; 2020-02-04 10:47)
DX: K26.4 Chronic or unspecified duodenal ulcer with hemorrhage (principal); G93.41 Metabolic encephalopathy; N18.6 End stage renal disease; B37.49 Other urogenital candidiasis; E87.2 Acidosis; I13.11 Hypertensive heart and chronic kidney disease without heart failure, with stage 5 chronic kidney disease, or end stage renal disease; K29.71 Gastritis, unspecified, with bleeding; Z79.84 Long term (current) use of oral hypoglycemic drugs; E16.0 Drug-induced hypoglycemia without coma; L94.2 Calcinosis cutis; K25.9 Gastric ulcer, unspecified as acute or chronic, without hemorrhage or perforation; Z79.4 Long term (current) use of insulin; E83.59 Other disorders of calcium metabolism; N83.8 Other noninflammatory disorders of ovary, fallopian tube and broad ligament; D63.1 Anemia in chronic kidney disease; K82.9 Disease of gallbladder, unspecified; E11.22 Type 2 diabetes mellitus with diabetic chronic kidney disease; Z99.2 Dependence on renal dialysis; Z11.59 Encounter for screening for other viral diseases; K29.70 Gastritis, unspecified, without bleeding
CPT/HCPCS: 36415; 43239; 71045; 74176; 78227; 80048; 80053; 81001; 82270; 82550; 82553; 82607; 82728; 82746; 82948; 83540; 83605; 83735; 83970; 84100; 84466; 84484; 85025; 85045; 85610; 85730; 87040; 87070; 87086; 87205; 88305; 88312; 89051; 90962; 93005; 97139; 99251; 99284; A9537; J0692; J1450; J2270; J2370; J2405; J3010; J3370; J7050; J7070; J7799; U0002

== ENCOUNTER 2020-02-07 14:09 | Emergency (ER) | payer MEDICARE ==
[~2020-02-07] VITALS: Ht 190.5 cm; Wt 83.9 kg
--- NOTE | 2020-02-07 15:23 | NUR ---
RUTHANN HERNANDEZ (DAUGHTER) [phone]. PT'S DAUGHTER COMING TO GET PATIENT NO MEDICAL NECESSITY TO BE IN HOSPITAL PER DR. BOJORQUEZ.
--- NOTE | 2020-02-07 15:30 | Emergency Department Note ---
History of Present Illnes History of Present Illness Chief Complaint: General Medicine Complaints History of Present Illness This is a 69 year old female PT SENT FROM [facility] DUE TO THE FACILITY'S INABILITY TO PERFORM PERITONEAL DIALYSIS. PT NOTES SHE WAS JUST DISCHARGED FROM [facility] & HER LAST PD WAS ONE DAY AGO. PT NOTES SHE HAS ABD PAIN AT HER PD SITE, AND BILATERAL LEG PAIN. PT IS GUAMANIAN SPEAKING. Historian: Patient, Beef Lugger/EMS Arrival Mode: CONCORD #023 Card Player Required: No Location: NO COMPLAINTS Radiation: Reports non-radiation Progression: resolved Context: Reports recent illness Relieving factors: none Exacerbating factors: none Associated symptoms: Reports denies other symptoms Past Medical/Family History Physician Review I have reviewed the patient's past medical and family history. Any updates have been documented here. Past Medical History Recent Fever: No Clinical Suspicion of Infectio: No New/Unexplained Change in Ment: No Past Medical History: Hypertension, Diabetes, ESRD, Anemia Other Medical History: PERITONEAL DIALYSIS, NEUROPATHY Past Surgical History: Hysterectomy, Other Surgery: Peritoneal Dialysis catheter Social History Smoking Cessation: Never Smoker Counseling Performed: No Alcohol Use: None Any Illegal Drug Use: No TB Exposure/Symptoms: No Physically hurt or threatened: No Family History Family history of heart diseas: No Other Any Pre-Existing Lines (PICC,: Yes (PD CATHETER TO ABDOMEN) Review of Systems Review of Systems Constitutional: Reports no symptoms EENTM: Reports no symptoms Cardiovascular: Reports no symptoms Respiratory: Reports no symptoms Gastrointestinal: Reports no symptoms Genitourinary: Reports no symptoms Musculoskeletal: Reports no symptoms Integumentary: Reports no symptoms Neurological: Reports no symptoms Psychological: Reports no symptoms Endocrine: Reports no symptoms Hematological/Lymphatic: Reports no symptoms Physical Exam Related Data Allergies: Coded Allergies: No Known Allergies (Unverified , 01/27/20) Triage Vital Signs Vital Signs Date Time Temp Pulse Resp B/P (MAP) Pulse Ox O2 Delivery O2 Flow Rate FiO2 02/07/20 14:28 97.7 100 20 123/68 100 Room Air Vital signs reviewed: Yes Physical Exam CONSTITUTIONAL Constitutional: Present well-developed, Present well-nourished HENT HENT: Present normocephalic, Present atraumatic, Present oropharynx clear/moist, Present nose normal HENT L/R: Present left ext ear normal, Present right ext ear normal EYES Eyes: Reports PERRL, Reports conjunctivae normal NECK Neck: Present ROM normal PULMONARY Pulmonary: Present effort normal, Present breath sounds normal CARDIOVASCULAR Cardiovascular: Present regular rhythm, Present heart sounds normal, Present capillary refill normal, Present normal rate GASTROINTESTINAL Abdominal: Present soft, Present nontender, Present bowel sounds normal GENITOURINARY Genitourinary: Present exam deferred SKIN Skin: Present warm, Present dry MUSCULOSKELETAL Musculoskeletal: Present ROM normal, Present other (MULTIPLE CALCIPHYLAXIS LESIONS ON BILAT LE's) NEUROLOGICAL Neurological: Present alert, Present oriented x 3, Present no gross motor or sensory deficits PSYCHOLOGICAL Psychological: Present mood/affect normal, Present judgement normal Assessment & Plan Medical Decision Making MDM NO REASON FOR ER VISIT EXCEPT FOCUS CARE UNABLE TO DO PERITONEAL DIALYSIS Reassessment Reassessment I SPOKE WITH DR VAZQUEZ, DR ZAYAS, AND AYDEE CASE MANAGEMENT WHO SAID THAT NO FACILITIES CAN DO PD CURRENTLY - EVERYONE IS IN AGREEMENT THAT SHE CAN GO HOME AND DO PD AT HOME LIKE SHE WAS DOING PRIOR TO RECENT ADMISSION. SHE LIVES WITH DAUGHTER - JAMISON RN CALLED DAUGHTER WHO IS EXCITED FOR PT TO COME HOME AND IS COMING TO GET HER Assessment & Plan Final Impression: (1) ESRD on peritoneal dialysis Depart Disposition: HOME, SELF-CARE Last Vital Signs Date Time Temp Pulse Resp B/P (MAP) Pulse Ox O2 Delivery O2 Flow Rate FiO2 02/07/20 14:28 97.7 100 20 123/68 100 Room Air Home Meds Active Scripts Cephalexin Monohydrate (KEFLEX) 500 Mg Capsule, 500 MG PO Q12H, #20 Prov:CHAYO ZAYAS MD 01/31/20 Reported Medications Furosemide (FUROSEMIDE) 40 Mg Tablet, 40 MG PO Daily, #30 TAB 01/27/20 Potassium Chloride (POTASSIUM CHLORIDE) 20 Meq Tab.er.prt, 20 MEQ PO DAILY 01/27/20 Glipizide (GLIPIZIDE) 5 Mg Tablet, 10 MG PO DAILY, TAB 01/27/20 Metformin Hcl (METFORMIN HCL) 500 Mg Tablet, 500 MG PO BID, #60 TAB 01/27/20 Calcitriol (CALCITRIOL) 0.5 Mcg Cap, 0.5 MG PO DAILY, CAP 01/27/20 Atorvastatin Calcium (ATORVASTATIN CALCIUM) 20 Mg Tablet, 40 MG PO HS, #30 TAB 01/27/20 Amitriptyline Hcl (AMITRIPTYLINE HCL) 25 Mg Tablet, 25 MG PO DAILY, #30 TAB 01/27/20 Hydralazine Hcl (HYDRALAZINE HCL) 10 Mg Tablet, 50 MG PO DAILY, #30 TAB 01/27/20 BOBY BOJORQUEZ MD Feb 07, 2020 15:30
[2020-02-07] MEDS ORDERED: HYDROCODONE/APAP 5MG-325MG TAB PO ONE (15:45)
[2020-02-07 16:20] VITALS: BP 130/84
--- OUTSIDE RECORDS SUMMARY | 2020-02-09 16:14 | XMS REPORT | Clinical Summary ---
Author Author [facility] Organization [place] [facility] Address Unknown Phone Unavailable Care Team Providers Care Sightseeing Guide Name Role Phone Asked, No Pcp PCP [...] (Primary Dx); Weakness 08/28/2019 Hospital General Internal Tn jessica - Encounter 08/29/2019 Melissa Sellers NP 08/28/2019 Orders Only General Internal Me dicine after 02/06/2019 Social History Date Tobacco Use Types Packs/Day [...] 12-LEAD STAT 08/28/2019 8:20 PM CDT after 02/06/2019 Results * POC glucose (08/29/2019 11:04 AM CDT) Only the most recent of 3 results within the time period is included. [facility] POC glucose 207 (H) 65 - 100 mg/dL [place] Comment: [place] Police Chief Deputy Name: Sue Frias [place] Device ID: [id number] HOSPITAL Specimen Blood Performing Organization Address [facility] P christian Number [address] * Estimated GFR (08/29/2019 5:56 AM CDT) Only the most recent of 2 results within the time period is included. [facility] Estimated GFR 6 (A) mL/min/1.73 m2 [place] Comment: [place]ISM Catergory Units [facility] HOSPITAL G1 >=90 Normal or high G2 [...] published in 2014. Specimen Performing Organization Address City/[facility] [place] [address] PATHOLOGY AND [facility] [address] * CBC with platelet and differential (08/29/2019 5:56 AM CDT) Only the most recent of 2 results within the time period is included. [facility] WBC 7.1 4.2 - 11.0 k/uL [facility] RBC 3.04 (L) 4.04 - 5.86 m/uL [facility] HGB 9.1 (L) 11.5 - 15.3 g/dL [facility] HCT 28.3 (L) 34.0 - 45.0 % [facility] MCV 93.1 80.0 - 98.0 fL [facility] MCH 29.9 27.0 - 34.0 pg [facility] MCHC 32.2 31.5 - 36.5 g/dL [facility] RDW - SD 48.3 37.0 - 51.0 fL [facility] MPV 8.2 7.4 - 10.4 fL [facility] Platelet count 376 150 - 400 k/uL [facility] Nucleated RBC 0.00 /100 WBC [facility] Neutrophils 64.6 36.0 - 66.0 % [facility] Lymphocytes 23.6 (L) 24.0 - 44.0 % [facility] Monocytes 6.6 (H) 0.0 - 6.0 % [facility] Eosinophils 3.9 0.0 - 6.0 % [facility] Basophils 1.0 0.0 - 1.2 % [facility] Immature 0.3 0.0 - 1.0 % [place] granulocytes [facility] Specimen Blood Performing Organization Address City/State/ZIP Code P christian Number [facility] DEPARTMENT OF [address] [place] [address] PATHOLOGY AND GENOMIC MEDICINE [address] * Basic metabolic panel (08/29/2019 5:56 AM CDT) Sodium 135 135 - 150 mEq/L [facility] Potassium 3.6 3.5 - 5.0 mEq/L [facility] Chloride 93 (L) 98 - 112 mEq/L [facility] CO2 25 24 - 31 mmol/L [facility] Anion gap 17@ANIO (H) 7 - 15 mEq/L [facility] BUN 36 (H) 7 - 18 mg/dL [facility] Creatinine 6.40 (H) 0.50 - 0.90 mg/dL [facility] Glucose 217 (H) 65 - 100 mg/dL [facility] Calcium 7.6 (L) 8.8 - 10.2 mg/dL [facility] Specimen Blood Performing Organization Address City/State/ZIP Code P christian Number [facility] DE[facility] OF [address] [place] [address] PATHOLOGY AND GENOMIC MEDICINE [facility] [address]. [address] * Troponin (08/29/2019 2:03 AM CDT) Only the most recent of 2 results within the time period is included. Troponin 0.020 0.000 - 0.040 ng/mL [place] Comment: M[place]ISM In patients suspected of [place] having a myocardial HOSPITAL infarction, along with [...] 0.020 ng/mL Specimen Blood Performing Organization Address City/State/[facility] P christian Number [facility] [address] [place] [address] PATHOLOGY AND GENOMIC MEDICINE [facility] [address] [place] [address] * Hepatitis B surface Ab, quantitative (08/28/2019 11:00 PM CDT) Pathologist [facility] Hepatitis B 494.43 IU/L [facility] REF LAB [...] Cellular and Tissue-Based Products (HCT/P). Performed by [employer], [address] [place] [id number] [email or web address], Mikael Matias MD, Lab. Director Specimen Serum Performing Organization Address [facility] P christian Number [facility] [address] [place] [address] [facility] RE[facility] [address] [place] [address] * Hepatitis B surface antigen (08/28/2019 11:00 PM CDT) Pathologist [facility] Hepatitis B Non-reactive Non-reactive [place] surface Ag [facility] Specimen Blood Performing Organization Address City/[facility]/ZIP [facility] P christian Number [facility] [address] [place] [address] PATHOLOGY AND GENOMIC MEDICINE [facility] [address] [place] [address] HOS[address]ITAL * CT Head Wo Contrast (08/28/2019 [...] a bnormality. Chronic findings as detailed above. [facility]-[id number] Procedure Note Interface, Radiology Results Incoming - [...] intracranial abnormality. Chronic findings as detailed above. [facility]-[id number] Performing Organization Address City/State/ZIP Code P christian Number [facility] [address] [place] [address] * Prothrombin time with INR (08/28/2019 8:34 PM CDT) Prothrombin 14.8 (H) 11.5 - 14.5 sec [facility] INR 1.16 [place] Comment: MORMONISM For patients on anticoagulant [place] therapy, reference ranges HOSPITAL below: Indication: INR Value Treatment of Venous Thrombosis, 2.0-3.0 pulmonary emboli, or prophylaxis of a venous thrombosis, or systemic emboli. High dose, high risk patients 3.0-4.5 with mechanical valves. NOTE: INR values over 3.0 are sometimes associated with gastrointestinal hemorrhage, especially values over 4.0. Specimen Blood Performing Organization Address City/State/ZIP Code P christian Number [facility] DEPARTMENT [address] [place] [address] PATHOLOGY AND GENOMIC MEDICINE [facility] [address] [place] [address] * B natriuretic peptide (08/28/2019 8:34 PM CDT) BNP 97 0 - 100 pg/mL [facility] Specimen Blood Performing Organization Address City/State/ZIP Code P christian Number [facility] [address] [place] [address] PATHOLOGY AND GENOMIC MEDICINE [facility] [address] * Lipid panel (08/28/2019 8:34 PM CDT) Cholesterol 80 0 - 199 mg/dL [facility] Triglycerides 87 0 - 149 mg/dL [facility] HDL cholesterol 26 (L) 40 - 9,999 mg/dL [facility] LDL cholesterol 41Comment: Result obtained by 0 - 99 mg/dL [place] direct LDL measurement [facility] Lipid panel See below [place] interpretation Comment: MORMONISM Total Cholesterol (mg/dL) [facility] Cholesterol [facility] (mg/dL) <200 Desirable <100 Optimal 200-239 [...] Organization Address City/State/ZIP Code P christian Number [facility] DEPARTMENT OF [address] [place] [id number] PATHOLOGY AND GENOMIC MEDICINE [facility] [address] * Comprehensive metabolic panel (08/28/2019 8:34 PM CDT) Sodium 135 135 - 150 mEq/L [facility] Potassium 3.2 (L) 3.5 - 5.0 mEq/L [facility] Chloride 92 (L) 98 - 112 mEq/L [facility] CO2 24 24 - 31 mmol/L [facility] Anion gap 19@ANIO (H) 7 - 15 mEq/L [facility] BUN 37 (H) 7 - 18 mg/dL [facility] Creatinine 6.60 (H) 0.50 - 0.90 mg/dL [facility] Glucose 95 65 - 100 mg/dL [facility] Calcium 7.6 (L) 8.8 - 10.2 mg/dL [facility] Protein 6.6 6.3 - 8.3 g/dL [facility] Albumin 2.1 (L) 3.5 - 5.0 g/dL [facility] A/G ratio 0.5 (L) 0.7 - 3.8 [facility] Alkaline 147 (H) 0 - 104 U/L [place] phosphatase [facility] AST 19 10 - 35 U/L [facility] ALT 16 5 - 50 U/L [facility] Total bilirubin 0.4 0.2 - 1.2 mg/dL [facility] Specimen Blood Performing Organization Address City/[facility]/ZIP [facility] P christian Number [facility] DE[facility]MENT OF [address] [place] [address] PATHOLOGY AND GENOMIC MEDICINE [address] * ECG 12 lead (08/28/2019 8:20 PM CDT) Ventricular 101 [facility] MUSE rate Atrial rate 101 [facility] MUSE WA interval 166 [facility] QRSD interval 90 [...] is n ot available. Performing Organization Address City/[facility]/ZIP Code P christian Number [facility] MUSE [address] [place] [address] after 02/06/2019 Insurance Type Payer Benefit Subscriber ID Effective Phone Address Plan / Dates Group [facility] MEDICARE [facility] [id number] 2019-P [employer] (MEDICARE- MEDICAID PLAN) Advance Directives For more information, please contact: [phone] Patient Brass Bobbin Winder Explanation Type Date Recorded Advance Directives, Living Will and Medical Power of [employer]
--- OUTSIDE RECORDS SUMMARY | 2020-02-09 16:14 | XMS REPORT | Clinical Summary ---
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 OPTUM NON UNITED - OPTUM xxxxxxxxx MEDICAID MGD CARE NON-[facility] xxxxxxxxx [place] [phone]
--- OUTSIDE RECORDS SUMMARY | 2020-02-09 16:14 | XMS REPORT | Clinical Summary ---
Author Author [facility] Organization [facility] Address Unknown Phone Unavailable Care Team Providers Care Mess Attendant Crew Name Role Phone Moises Jung MD PCP [...] Care Team Description Date Type Specialty Moises uJng MD Type 2 diabetes mellitus with hyperglyce [...] vaccination 02/25/2019 Office Visit Family Practice after 02/06/2019 Immunizations Name Administration Dates Next Due Hepatitis [...] Comments Vital Sign 146/60 07/19/2019 9:42 AM [facility] manual Blood Pressure 89 07/19/2019 9:36 AM [facility] Pulse 36.6 C (97.9 F) 07/19/2019 9:36 AM [facility] Temperature 19 07/19/2019 9:36 AM [facility] Respiratory Rate - - Oxygen Saturation - - Inhaled Oxygen Concentration 78.8 kg (173 lb 11.2 oz) 07/19/2019 9:36 AM [facility] Weight 157.9 cm (5' 2.17") 07/19/2019 9:36 AM [facility] Height 31.6 07/19/2019 9:36 AM [facility] Body Mass Index Plan of Treatment Health [...] BLOOD GLUCOSE Lifestyle No Belkys Banks i, POCKET GRINDER OPERATOR Reduce pain Lifestyle No Nancy Bui, Program Development Manager Eat Healthy Lifestyle Yes Nancy Bui Program Development Manager Eat Healthy Lifestyle No Tabitha Kurtz [...] without long-term current use of insulin after 02/06/2019 Results * URINALYSIS, MICROSCOPIC (07/22/2019 1:11 PM CDT) Pathologist [facility] RBC 11-21 (A) 0 - 4 /HPF [facility] WBC 5-20 (A) 0 - 5 /HPF [facility] Mucous Present (A) None seen /HPF [facility] Epithelial Cell 1/HPF (A) <1 /HPF [facility] Bacteria Moderate (A) None seen /HPF [facility] Granular Cast 0-1 None seen /LPF [facility] Specimen Urine Performing Organization Address [facility] one Number [facility] [address] [place] [address] [phone] [facility] * Urinalysis (07/22/2019 1:11 PM CDT) Pathologist [facility] Color Yellow Colorless, Straw, [facility] Yellow Clarity Clear Clear [facility] Spec [place], 1.025 1.005 - 1.035 [facility] Ur [...] [facility] Specimen Urine Performing Organization Address [facility] one Number [facility] [address] [place] [address] [facility] * Hemoglobin A1C (07/22/2019 1:11 PM CDT) Only the most recent of 2 results within the time period is included. Pathologist [facility] Hemoglobin A1c 10.4 (H) 4.3 - 6.1 % [facility] Estimated 252 (H) 70 - 110 mg/dL [facility] Average Glucose [facility] Specimen Blood Performing Organization Address [facility] one Number [facility] [address] [place] [address] * Electrolytes (07/22/2019 1:11 PM CDT) Pathologist [facility] Sodium 133 (L) 136 - 145 mmol/L [facility] Potassium 3.2 (L) 3.5 - 5.1 mmol/L [facility] Chloride 93 (L) 98 - 107 mmol/L [facility] CO2 25 21 - 31 mmol/L [facility] Anion Gap 15 5 - 16 mmol/L [facility] Specimen Blood Performing Organization Address [facility] one Number [facility] [address] [place] [address] * Liver Profile (07/22/2019 1:11 PM CDT) [facility] Total Protein 6.1 6.0 - 8.3 g/dL [...] [facility] Specimen Blood Performing Organization Address [facility] one Number [facility] [address] [place] [address] [phone] * Lipid Profile (07/22/2019 1:11 PM CDT) [facility] Cholesterol 123.0 <=200.0 mg/dL [facility] [...] triglyceride result gre ater than 440 mg/dL, [facility] consider re-testing when the patient is in a fasting state. Performing Organization Address [facility] one Number [facility] [address] [place] [address] * Glucose, Fasting (07/22/2019 1:11 PM CDT) [...] 140 mg/dL Specimen Blood Performing Organization Address [facility] one Number [facility] [address] [place] [address] * CBC (without differential) (07/22/2019 1:11 PM CDT) Pathologist [facility] WBC 16.2 (H) 4.5 - 11.0 K/uL [...] [facility] Specimen Blood Performing Organization Address [facility] one Number [facility] [address] [place] [address] [phone] * Urea Nitrogen/Creatinine (07/22/2019 1:11 PM CDT) Pathologist [facility] Urea Nitrogen 54.0 (H) 7.0 - 25.0 mg/dL [facility] Creatinine 5.1 (H) 0.6 - 1.2 mg/dL [facility] GFR, Estimated 8 (L) >=90 mL/min/1.73 m2 [facility] Specimen Blood Performing Organization Address City/State/Zipcode Ph one Number [facility] [address] [place] [address] [phone] * OPHTHALMOLOGY RETINAL SCAN (02/25/2019 11:09 AM [...] y/o, F (: , ) presented to [facility] on 02-25-2019 for a retinal imaging study of the left and right eye s. Based on the findings of the study, the following is recommended for STEPHANIE MURCIA Other Suspected Condition Found: Refer to [facility], next available appointment. For Follow-up at [facility]: The patient can be scheduled into any [facility] that has an ope n booking by calling the appointment center. Interpreting Provider's Comments: No comments provided Right Eye Findings: Negative for Diabetic Retinopathy. Other: Suspected Glaucoma Left Eye Findings: Diabetic Retinopathy: Mild Other: Suspected Glaucoma This result was electronically signed Adal Clark MD, , Taxonomy: [id number] on 02-25-2019 05:5 0:44 [facility] time. NOTE: Any pathology noted on this sarthak betic retinal evaluation should be confirmed by an appropriate ophthalmic examination. Performing Organization Address [facility] one Number [facility] * DIABETIC FOOT EXAM (02/25/2019 8:20 AM CDT) Narrative Performed At Moises Jung MD 019 11:27 AM Diabetic Foot Exam was performed at 10:33 AM. Right foot sensation is normal, right foot pulses are normal, right foot appearance is normal. Left foot sensation is nor mal, left foot pulses are normal, left foot appearance is normal. after 02/06/2019 Insurance Type Payer Benefit Subscriber ID Effective Phone Address Plan / Dates Group [facility] xxxxxxxxx 2014-P [phone] [address] [employer] [address] [id number] [place] [address]
--- OUTSIDE RECORDS SUMMARY | 2020-02-09 16:15 | XMS REPORT | Continuity of Care Document ---
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 Name Role Phone [employer] Unavailable Un available Problems Problem Status Onset Date Classification Date Reported Comments Source BACK PAIN Active 08/23/2018 [facility] SYDNEE, NAUSEA AND VOMITING Active 08/23/2018 [facility] Chronic kidney disease, unspecified 07/25/2017 11/01/2017 [facility] Hypocalcemia 07/25/2017 11/01/2017 [facility] Unspecified osteoarthritis, unspecified site 07/25/2017 11/01/2017 [facility] Pain in right knee 07/25/2017 11/01/2017 [facility] SWOLLEN LEGS Active 07/25/2017 [facility] Urinary tract infection, site not specified 10/19/2016 10/22/2016 [facility] WEAKNESS Active 10/19/2016 [facility] Discharge Diagnosis: Benign hypertension with CKD (chronic kidney disease) stage IV 02/18/2016 02/21/2016 [facility] Discharge Diagnosis: Bilateral flank pain 02/18/2016 02/21/2016 [facility] LWR BACK PAIN Active 02/18/2016 [facility] SEBACEOUS CYST ON RIGHT SIDE OF FACE Active 08/22/2012 [facility] ABSCESS Active 08/04/2012 [facility] Arthritis (disorder) Resolved Problem 08/27/2018 [facility] [place] Diabetes mellitus (disorder) R esolved Problem [facility] [place] Hypercholesterolemia (disorder) Resolved Problem [facility] [place] Hypertensive disorder, systemic arterial (disorder) Active Problem 08/27/2018 [facility] OPID [place] Depressive disorder (disorder) Resolved Problem [facility] [place] Arthritis Resolved Problem 09/09/2012 [facility] Diabetes mellitus Resolved Problem 09/09/2012 [facility] [place] Hypertension Active Problem 09/09/2012 [facility] Hypertensive chronic kidney disease with stage 1 through stage 4 chronic kidney disease, or unspecified chronic kidney disease 11/01/2017 [facility] Type 2 diabetes mellitus with diabetic c hronic kidney disease 11/01/2017 [facility] rn long term care (current) use of oral hypoglycemic drugs 11/01/2017 [facility] SEBACEOUS CYST Active [facility] ACUTE KIDNEY FAILURE, UNSPECIFIED Active [facility] NAUSEA WITH VOMITING, UNSPECIFIED Active [facility] Medications Medication Details Route Status Patient Instructions Ordering Provider Order Date Source atorvastatin 40 mg oral tablet 40 mg = 1 tab, PO, Bedtime, # 90 tab, 1 Refill(s) Active 08/25/2018 [facility] calcitriol 0.5 mcg oral capsule 0.5 microgram = 1 cap, PO, Daily, # 30 cap, 0 Refill(s) Active 08/25/2018 [facility] carvedilol 25 mg, PO, BID, 0 R efill(s) Active 08/25/2018 [facility] Vitamin D2 50,000 intl units oral capsule 50,000 IntlUnit = 1 cap, PO, 0 Refill(s) Active 08/25/2018 [facility] baclofen 5 mg oral tablet 10 m g = 2 tab, PO, TID, 0 Refill(s) Active 08/25/2018 [facility] Furosemide 40 MG Oral Tablet 4 0 mg = 1 tab, PO, BID, 0 Refill(s) Active 08/25/2018 [facility] Hydroxyzine Hydrochloride 25 MG Oral Tablet 25 mg = 1 tab, PO, Q8H, 0 Refill(s) Inactive 08/25/2018 [facility] Hydralazine Hydrochloride 50 MG Oral Tablet 100 mg = 2 tab, PO, TID, 0 Refill(s) Active 08/25/2018 [facility] atorvastatin Notes: (Same as: Lipitor) No Longer Active 08/25/2018 [facility] sennosides, SNF Notes: (Same a s: Senokot) No Longer Active 08/25/2018 [facility] Hydralazine Notes: (Same as: A presoline) May interfere w/enteral feedings Take With Food. No Longer Active 08/24/2018 [facility] Robaxin Notes: (Same as:Robaxi n) No Longer Active 08/24/2018 [facility] metoprolol tartrate Notes: (Sa me as: Lopressor) No Longer Active 08/24/2018 [facility] Amlodipine Notes: (Same as: No rvasc) No Longer Active 08/24/2018 [facility] POLYETHYLENE GLYCOL 3350 Notes : Dissolve in 8 oz of water or juice. (Same as: Miralax) No Longer Active 08/24/2018 [facility] Docusate Notes: (Same as: Cola ce) (Do Not Crush) No Longer Active 08/24/2018 [facility] heparin Notes: porcine heparin No Longer Active 08/24/2018 [facility] NIFEdipine 30 mg oral tablet, extended release Notes: (Same as: Adalat CC, Procardia XL) Give on empty stomach. Take 1 hour before or 2 hours after meal; "Avoid grapefruit and grapefruit juice". Do not crush Inactive 08/24/2018 [facility] tizanidine Notes: (Same As: Za naflex) No Longer Active 08/24/2018 [facility] Hydralazine Notes: (Same as: A presoline) Push over 5 minutes No Longer Active 08/24/2018 [facility] Insulin Lispro Notes: (Same as : Humalog ) Roll in palms of hands gently; Do not shake `vigorously. "Single Patient Use Only " WASTE: F/P - Black; E - Speech [place] Trash Bin Stable for 28 days at room temp erature. Expires in days from Date No Longer Active 08/24/2018 [facility] Dextrose 50% Syringe 12.5 gm, 25 mL, Route: IVP, Drug Form: INJ, Dosing Weight 79.091, kg, PRN, PRN Blood Glucose Results, Start date: 08/24/18 1:07:00 CDT, Duration: 30 day, Stop date: 09/23/18 1:06:00 CDT No Longer Active 08/24/2018 [facility] Glucagon 1 mg, Route: IM, Drug form: PDR/INJ, PRN, Dosing Weight 79.091, kg, PRN Blood Glucose Results, Start date: 08/24/18 1:07:00 CDT, Duration: 30 day, Stop date: 09/23/18 1:06:00 CDT No Longer Active 08/24/2018 [facility] Lactated Ringers IV 1,000 mL 1 ,000 mL, Rate: 125 ml/hr, Infuse over: 8 hr, Route: IV, Dosing Weight 79.091 kg, Total Volume: 1,000, Start date: 08/24/18 1:06:00 CDT, Duration: 30 day, Stop date: 09/23/18 1:05:00 CDT, 1.89, m2 No Longer Active 08/24/2018 [facility] Hydromorphone Notes: (Same as: Dilaudid) No Longer Active 08/24/2018 [facility] Saline Flush 0.9% Notes: (Same as: BD Posiflush) No Longer Active 08/24/2018 [facility] Acetaminophen Notes: Do not ex ceed 4 gm/day. (Same as: Tylenol) No Longer Active 08/24/2018 [facility] Dextrose 50% Syringe 25 mL, Ro [place]: IVP, Dosing Weight 79.091, kg, PRN, PRN Blood Glucose Results, Start date: 08/24/18 1:06:00 CDT, Duration: 30 day, Stop date: 09/23/18 1:05:00 CDT Inactive 08/24/2018 [facility] Bisacodyl Notes: (Same As: Dul colax, Bisco-Lax) No Longer Active 08/24/2018 [facility] Melatonin Notes: (Same as: Angela atonin) No Longer Active 08/24/2018 [facility] Ondansetron Notes: (Same as: Viry zhang) MEDICATION WASTE Product Size: 4 mg Product Wasted: ___ mg No Longer Active 08/24/2018 [facility] Glucagon 1 mg, Route: IM, PRN, Dosing Weight 79.091, kg, PRN Blood Glucose Results, Start date: 08/24/18 1:06:00 CDT, Duration: 30 day, Stop date: 09/23/18 1:05:00 CDT Inactive 08/24/2018 [facility] Saline Flush 0.9% Notes: (Same as: BD Posiflush) No Longer Active 08/24/2018 [facility] tramadol hydrochloride 50 MG Oral Tablet 50 mg = 1 tab, PO, Q8H, PRN Pain, X 5 day, # 24 tab, 0 Refill(s) No Longer Active 07/26/2017 [facility] Glipizide 10 mg, PO, BID, 0 Re fill(s) Active 07/26/2017 [facility] Hydralazine 25 mg, PO, BID, 0 Refill(s) Active 07/26/2017 [facility] atorvastatin 40 mg, PO, Bedtim e, 0 Refill(s) Active 07/26/2017 [facility] Tramadol 50 mg, PO, PRN, 0 Ref ill(s) Active 07/26/2017 [facility] metoprolol tartrate 50 mg oral tablet 50 mg = 1 tab, PO, BID, 0 Refill(s) Active 07/26/2017 [facility] tramadol hydrochloride 50 MG Oral Tablet 50 mg, Route: PO, Drug form: TAB, ONCE, Dosing Weight 84.091, kg, Priority: STAT, Start date: 07/25/17 21:25:00 CDT, Stop date: 07/25/17 21:25:00 CDT Inactive 07/26/2017 [facility] Cephalexin 500 MG Oral Capsule [Keflex] 500 mg = 1 cap, PO, BID, X 10 day, # 20 cap, 0 Refill(s) Active 10/19/2016 [facility] Sodium Chloride 0.154 MEQ/ML Injectable Solution 1,000 mL, 1000 ml/hr, Infuse Over: 1 hr, Route: IV, 1,000, Drug form: INJ, ONCE, Priority: STAT, Dosing Weight 91.818 kg, Start date: 10/19/16 15:07:00 CDT, Duration: 1 doses or times, Stop date: 10/19/16 15:07:00 CDT Inactive 10/19/2016 [facility] Pyridium Notes: Give with meal s. (Same as: Pyridium) Inactive 10/19/2016 [facility] Ceftriaxone Notes: (Same As: Vini greene). Use with 100 mL NS and infuse over 30 min MEDICATION WASTE Product Size: 2000 mg Product Wasted: ___ mg Inactive 10/19/2016 [facility] Saline Flush 0.9% Notes: (Same as: BD Posiflush) Inactive 10/19/2016 [facility] Docusate Sodium 100 MG Oral Capsule [Colace] 100 mg = 1 cap, PO, BID, PRN Constipation, # 20 cap, 0 Refill(s) Active 02/18/2016 [facility] Acetaminophen 300 MG / Codeine Phosphate 30 MG Oral Tablet [Tylenol with Codeine #3] 1 - 2 tab, PO, Q4H, PRN Pain, X 2 day, # 20 tab, 0 Refill(s) No Longer Active 02/18/2016 [facility] Sodium Chloride 0.154 MEQ/ML Injectable Solution 1,000 mL, 2,000 ml/hr, Infuse Over: 30 minutes, Route: IV, ONCE, Priority: STAT, Dosing Weight 91.818 kg, Start date: 02/18/16 13:38:00 CDT, Duration: 1 doses or times, Stop date: 02/18/16 13:38:00 CDT Inactive 02/18/2016 [facility] Saline Flush 0.9% Notes: (Same as: BD Posiflush) Inactive 02/18/2016 [facility] Morphine 4 mg, Route: IVP, ONC E, Dosing Weight 91.818, kg, Priority: STAT, Start date: 02/18/16 13:38:00 CDT, Stop date: 02/18/16 13:38:00 CDT Inactive 02/18/2016 [facility] Ondansetron 4 mg, Route: IVP, ONCE, Dosing Weight 91.818, kg, Priority: STAT, Start date: 02/18/16 13:38:00 CDT, Stop date: 02/18/16 13:38:00 CDT Inactive 02/18/2016 [facility] Vicodin 5/500 oral tablet 1 ta b, PO, Q6H, 30 tab, Substitution Allowed, Maintenance PO Active Free t 09/07/2012 [facility] nter naloxone 0.04 mg, 0.1 mL, Rout e: IVP, Drug form: INJ, Q2MIN, Dosing Weight 83.182, kg, PRN Narcotic Reversal, Start date: 09/07/12 10:30:00, Duration: 8 doses or times, Stop date: 09/08/12 0:00:00 IVP No Longer Active [facility] 09/07/2012 [facility] flumazenil 0.2 mg, 2 mL, Route : IVP, Drug form: INJ, PRN, Dosing Weight 83.182, kg, PRN Benzodiazepine Reversal, Initial dose, Start date: 09/07/12 10:30:00, Duration: 30 day, Stop date: 10/07/12 10:29:00 IVP No Longer Active [facility] 08/14 [facility] ondansetron 4 mg, 2 mL, Route: IVP, Drug form: INJ, ONCE, Dosing Weight 83.182, kg, PRN Nausea & Vomiting, Start date: 09/07/12 10:30:00 IVP No Longer Active [facility] 09/07/2012 [facility] acetaminophen-hydrocodone 325 mg-10 mg/1 5 mL oral solution 15 mL, Route: PO, Drug Form: SOLN, Dosin g Weight 83.182, kg, Q6H, PRN Pain, Start date: 09/07/12 10:30:00, Duration: 30 day, Stop date: 10/07/12 10:29:00 PO No Longer Active [facility] 08/14 [facility] labetalol 5 mg, 1 mL, Route: I [employer] DESP[employer], Drug form: INJ, Q5Min, Dosing Weight 83.182, kg, PRN Elevated BP, Start date: 09/07/12 10:30:00, Duration: 5 doses or times, Stop date: 09/08/12 0:00:00 IVP [facility] tetanus-diphtheria toxoids adult intramu scular suspension 0.5 ml, Route: IM, Dosing Weight 82.727, kg, ONCE, STAT, Start date: 06/02/12 14:10:00, Stop date: 06/02/12 14:10:00 IM No Longer Active [place] 06/02/2012 [facility] Allergies, Adverse Reactions, Alerts No Known Medication Allergies Immunizations Immunization Date Given Site Status Last Updated Comments Source pneumococcal 13-valent vaccine 08/25/2018 Right Deltoid completed September [facility] tetanus-diphtheria toxoids Right deltoid completed [facility] tetanus-diphtheria toxoids completed Lacy [facility] tetanus-diphtheria toxoids Right deltoid completed [facility], [facility] [place] Results Order Name Results Value Reference Range [...] should be multiplied by the estimated BMI. [facility] CHEM PANEL Calcium Lvl 8.5 8.5 - 10.5 08/25/2018 [facility] CHEM PANEL CO2 23 24 - 32 08/25/2018 [facility] CHEM PANEL AGAP 14.0 10.0 - 20.0 08/25/2018 [facility] CHEM PANEL Glucose Lvl 141 70 - 99 08/25/2018 [facility] CHEM PANEL BUN 66 7 - 22 08/25/2018 [facility] CHEM PANEL Potassium Lvl 4.0 3.5 - 5.1 08/25/2018 [facility] CHEM PANEL Chloride Lvl 111 95 - 109 08/25/2018 [facility] CHEM PANEL Creatinine Lvl 4.49 0.50 - 1.40 08/25/2018 [facility] CHEM PANEL Sodium Lvl 144 135 - 145 08/25/2018 [facility] ELECTROLYTES Chloride Lvl 108 95 - 109 08/24/2018 [facility] ELECTROLYTES Calcium Lvl 8.3 8.5 - 10.5 08/24/2018 [facility] ELECTROLYTES AGAP 12.0 10.0 - 20.0 08/24/2018 [facility] ELECTROLYTES CO2 23 24 - 32 08/24/2018 [facility] ELECTROLYTES eGFR 9 08/24/2018 Result Comment: [...] should be multiplied by the estimated BMI. [facility] ELECTROLYTES Glucose Lvl 205 70 - 99 08/24/2018 [facility] ELECTROLYTES Creatinine Lvl 4.6 7 0.50 - 1.40 08/24/2018 [facility] ELECTROLYTES Sodium Lvl 139 135 - 145 08/24/2018 [facility] ELECTROLYTES BUN 70 7 - 22 08/24/2018 [facility] ELECTROLYTES Potassium Lvl 4.0 3.5 - 5.1 08/24/2018 [facility] URINE AND STOOL UA Amorph Luly Occasional /HPF None Seen /HPF 08/24/[address] [facility] [address] URINE AND STOOL UA RBC 1 0 - 2 08/24/2018 [facility] URINE AND STOOL UA Bacteria Occasional /HPF None Seen /HPF 08/24/[address] [facility] [address] URINE AND STOOL UA Sq Epi Few /LPF Few /LPF 08/24/2018 [facility] URINE AND STOOL UA WBC 1 0 - 5 08/24/2018 [facility] URINE AND STOOL UA Blood Negative (08/24/18 12:15 AM) Negative 08/24/2018 [facility] URINE AND STOOL UA Bili Negative *NA* (08/24/18 12:15 AM) Negative 08/24/2018 [facility] URINE AND STOOL UA pH 5.0 5.0 - 8.0 08/24/2018 [facility] URINE AND STOOL UA Spec Grav 1.012 <=1.030 08/24/2018 [facility] URINE AND STOOL UA Nitrite Negative (08/24/18 12:15 AM) Negative 08/24/2018 [facility] URINE AND STOOL UA Leuk Est Negative (08/24/18 12:15 AM) Negative 08/24/2018 [facility] URINE AND STOOL UA Urobilinogen <=1.0 mg/dL 0.1 - 1.0 08/24/2018 [facility] URINE AND STOOL UA Ketones Negative *NA* (08/24/18 12:15 AM) Negative 08/24/2018 [facility] URINE AND STOOL UA Protein 100 mg/dL Negative mg/dL 08/24/2018 [facility] URINE AND STOOL UA Glucose 150 mg/dL Negative mg/dL 08/24/2018 [facility] URINE AND STOOL UA Turbidity Slight *ABN* (08/24/18 12:15 AM) Clear 08/24/2018 [facility] URINE AND STOOL UA Color Yellow *NA* (08/24/18 12:15 AM) Yellow 08/24/2018 [facility] CHEM PANEL Lipase Lvl 600 73 - 393 08/24/2018 [facility] CHEM PANEL eGFR 8 08/24/2018 Result [...] should be multiplied by the estimated BMI. [facility] CHEM PANEL Bili Total 0.5 0.2 - 1.3 08/24/2018 [facility] CHEM PANEL AST 18 0 - 37 08/24/2018 [facility] CHEM PANEL Alk Phos 127 39 - 136 08/24/2018 [facility] CHEM PANEL Glucose Lvl 187 70 - 99 08/24/2018 [facility] CHEM PANEL BUN 72 7 - 22 08/24/2018 [facility] CHEM PANEL Potassium Lvl 4.1 3.5 - 5.1 08/24/2018 [facility] CHEM PANEL Chloride Lvl 107 95 - 109 08/24/2018 [facility] CHEM PANEL Creatinine Lvl 5.01 0.50 - 1.40 08/24/2018 [facility] CHEM PANEL Sodium Lvl 141 135 - 145 08/24/2018 [facility] CHEM PANEL CO2 26 24 - 32 08/24/2018 [facility] CHEM PANEL Albumin Lvl 3.6 3.5 - 5.0 08/24/2018 [facility] CHEM PANEL ALT 22 0 - 65 08/24/2018 [facility] CHEM PANEL Calcium Lvl 9.0 8.5 - 10.5 08/24/2018 [facility] CHEM PANEL Total Protein 7.9 6.4 - 8.4 08/24/2018 [facility] CHEM PANEL B/C Ratio 14 6 - 25 08/24/2018 [facility] CHEM PANEL AGAP 12.1 10.0 - 20.0 08/24/2018 [facility] CHEM PANEL Globulin 4.3 2.7 - 4.2 08/24/2018 [facility] CHEM PANEL A/G Ratio 0.8 0.7 - 1.6 08/24/2018 [facility] MPV 8.2 7.4 - 10.4 08/24/2018 [facility] HEMATOLOGY Platelet 337 133 - 450 08/24/2018 [facility] HEMATOLOGY Hct 33.6 36.0 - 48.0 08/24/2018 [facility] MCH 29.9 27.0 - 31.0 08/24/2018 [facility] MCV 92.8 80.0 - 98.0 08/24/2018 [facility] RDW 14.8 11.5 - 14.5 08/24/2018 [facility] MCHC 32.2 32.0 - 36.0 08/24/2018 [facility] Hgb 10.8 12.0 - 16.0 08/24/2018 [facility] HEMATOLOGY RBC 3.63 4.20 - 5.40 08/24/2018 [facility] WBC 7.0 3.7 - 10.4 08/24/2018 [facility] HEMATOLOGY Eosinophils 0.5 0.0 - 4.0 08/24/2018 [facility] Monocytes 2.5 2.0 - 12.0 08/24/2018 [facility] HEMATOLOGY Segs 84.0 45.0 - 75.0 08/24/2018 [facility] Lymphocytes 12.0 20.0 - 40.0 08/24/2018 [facility] Basophils # 0.1 0.0 - 0.2 08/24/2018 [facility] Monocytes # 0.2 0.0 - 0.8 08/24/2018 [facility] Lymphocytes # 0.8 1.0 - 5.5 08/24/2018 [facility] HEMATOLOGY Neutrophils # 5.9 1.5 - 8.1 08/24/2018 [facility] HEMATOLOGY Basophils 1.0 0.0 - 1.0 08/24/2018 [facility] PARATHYROID PROFILE Ca Norm WB 0.90 1.05 - 1.25 07/26/2017 Result Comment: Critical Result(s) negra Humphreys at 07/25/2017 21:47 by MS. Read back OK. [facility] PARATHYROID PROFILE Ca Ion WB 0.95 1.05 - 1.25 07/26/2017 [facility] CHEM PANEL Ketone Quantitative 0.07 <=0.27 mmol/L 07/25/2017 [facility] CHEM PANEL eGFR 14 07/25/2017 Result [...] should be multiplied by the estimated BMI. [facility] CHEM PANEL Alk Phos 240 39 - 136 07/25/2017 [facility] CHEM PANEL AST 38 0 - 37 07/25/2017 [facility] CHEM PANEL ALT 43 0 - 65 07/25/2017 [facility] CHEM PANEL A/G Ratio 0.6 0.7 - 1.6 07/25/2017 [facility] CHEM PANEL Albumin Lvl 2.8 3.5 - 5.0 07/25/2017 [facility] CHEM PANEL Total Protein 7.5 6.4 - 8.4 07/25/2017 [facility] CHEM PANEL Globulin 4.7 2.7 - 4.2 07/25/2017 [facility] CHEM PANEL B/C Ratio 9 6 - 25 07/25/2017 [facility] CHEM PANEL Calcium Lvl 6.9 8.5 - 10.5 07/25/2017 Result Comment: Critical Result(s) negra saldana at 07/25/2017 17:04 by [place]. Read back OK. [facility] CHEM PANEL Bili Total 0.5 0.2 - 1.3 07/25/2017 [facility] CHEM PANEL AGAP 16.4 10.0 - 20.0 07/25/2017 [facility] CHEM PANEL CO2 22 24 - 32 07/25/2017 [facility] CHEM PANEL Chloride Lvl 104 95 - 109 07/25/2017 [facility] CHEM PANEL Creatinine Lvl 3.21 0.50 - 1.40 07/25/2017 [facility] CHEM PANEL BUN 30 7 - 22 07/25/2017 [facility] CHEM PANEL Potassium Lvl 4.4 3.5 - 5.1 07/25/2017 [facility] CHEM PANEL Sodium Lvl 138 135 - 145 07/25/2017 [facility] CHEM PANEL Glucose Lvl 277 70 - 99 07/25/2017 [facility] HEMATOLOGY MCV 85.9 80.0 - 98.0 07/25/2017 [facility] HEMATOLOGY RDW 13.4 11.5 - 14.5 07/25/2017 [facility] HEMATOLOGY MPV 7.6 7.4 - 10.4 07/25/2017 [facility] HEMATOLOGY MCH 28.6 27.0 - 31.0 07/25/2017 [facility] HEMATOLOGY MCHC 33.3 32.0 - 36.0 07/25/2017 [facility] HEMATOLOGY Hgb 10.8 12.0 - 16.0 07/25/2017 [facility] HEMATOLOGY Hct 32.5 36.0 - 48.0 07/25/2017 [facility] HEMATOLOGY RBC 3.78 4.20 - 5.40 07/25/2017 [facility] HEMATOLOGY WBC 7.5 3.7 - 10.4 07/25/2017 [facility] HEMATOLOGY Platelet 400 133 - 450 07/25/2017 [facility] HEMATOLOGY Basophils # 0.1 0.0 - 0.2 07/25/2017 [facility] HEMATOLOGY Eosinophils # 0.2 0.0 - 0.5 07/25/2017 [facility] HEMATOLOGY Monocytes # 0.5 0.0 - 0.8 07/25/2017 [facility] HEMATOLOGY Lymphocytes # 1.5 1.0 - 5.5 07/25/2017 [facility] HEMATOLOGY Basophils 1.2 0.0 - 1.0 07/25/2017 [facility] HEMATOLOGY Segs-Bands # 5.3 1.5 - 8.1 07/25/2017 [facility] HEMATOLOGY Lymphocytes 19.5 20.0 - 40.0 07/25/2017 [facility] HEMATOLOGY Monocytes 6.1 2.0 - 12.0 07/25/2017 [facility] HEMATOLOGY Eosinophils 2.7 0.0 - 4.0 07/25/2017 [facility] HEMATOLOGY Segs 70.5 45.0 - 75.0 07/25/2017 [facility] CARDIAC ENZYMES CK MB Index 1.4 0.0 - 2.5 10/19/2016 [facility] CARDIAC ENZYMES BNP 124 <=100 pg/mL 10/19/2016 [facility] CARDIAC ENZYMES Troponin-I <0.02 0.00 - 0.40 10/19/2016 [facility] CARDIAC ENZYMES Total CK 58 12 - 191 10/19/2016 [facility] CARDIAC ENZYMES CK MB 0.8 0.5 - 3.6 10/19/2016 [facility] CHEM PANEL eGFR 20 10/19/2016 Result [...] should be multiplied by the estimated BMI. [facility] CHEM PANEL A/G Ratio 0.8 0.7 - 1.6 10/19/2016 [facility] CHEM PANEL Bili Total 1.0 0.2 - 1.3 10/19/2016 [facility] CHEM PANEL Globulin 3.8 2.7 - 4.2 10/19/2016 [facility] CHEM PANEL AGAP 12.1 10.0 - 20.0 10/19/2016 [facility] CHEM PANEL B/C Ratio 11 6 - 25 10/19/2016 [facility] CHEM PANEL Alk Phos 167 39 - 136 10/19/2016 [facility] CHEM PANEL AST 9 0 - 37 10/19/2016 [facility] CHEM PANEL Albumin Lvl 3.0 3.5 - 5.0 10/19/2016 [facility] CHEM PANEL ALT 15 0 - 65 10/19/2016 [facility] CHEM PANEL Total Protein 6.8 6.4 - 8.4 10/19/2016 [facility] CHEM PANEL Calcium Lvl 7.8 8.5 - 10.5 10/19/2016 [facility] CHEM PANEL CO2 24 24 - 32 10/19/2016 [facility] CHEM PANEL Potassium Lvl 4.1 3.5 - 5.1 10/19/2016 [facility] CHEM PANEL Sodium Lvl 140 135 - 145 10/19/2016 [facility] CHEM PANEL Chloride Lvl 108 95 - 109 10/19/2016 [facility] CHEM PANEL Creatinine Lvl 2.50 0.50 - 1.40 10/19/2016 [facility] CHEM PANEL Glucose Lvl 255 70 - 99 10/19/2016 [facility] CHEM PANEL BUN 27 7 - 22 10/19/2016 [facility] HEMATOLOGY Monocytes # 0.4 0.0 - 0.8 10/19/2016 [facility] HEMATOLOGY Lymphocytes # 1.7 1.0 - 5.5 10/19/2016 [facility] HEMATOLOGY Segs-Bands # 6.2 1.5 - 8.1 10/19/2016 [facility] HEMATOLOGY Basophils # 0.1 0.0 - 0.2 10/19/2016 [facility] HEMATOLOGY Eosinophils # 0.3 0.0 - 0.5 10/19/2016 [facility] HEMATOLOGY Monocytes 4.9 2.0 - 12.0 10/19/2016 [facility] HEMATOLOGY Lymphocytes 19.6 20.0 - 40.0 10/19/2016 [facility] HEMATOLOGY Segs 71.9 45.0 - 75.0 10/19/2016 [facility] HEMATOLOGY Basophils 0.6 0.0 - 1.0 10/19/2016 [facility] HEMATOLOGY Eosinophils 3.0 0.0 - 4.0 10/19/2016 [facility] HEMATOLOGY RBC 3.48 4.20 - 5.40 10/19/2016 [facility] HEMATOLOGY WBC 8.6 3.7 - 10.4 10/19/2016 [facility] HEMATOLOGY MCV 87.2 80.0 - 98.0 10/19/2016 [facility] HEMATOLOGY Hct 30.4 36.0 - 48.0 10/19/2016 [facility] Hgb 10.1 12.0 - 16.0 10/19/2016 [facility] MPV 6.9 7.4 - 10.4 10/19/2016 [facility] MCH 29.0 27.0 - 31.0 10/19/2016 [facility] MCHC 33.3 32.0 - 36.0 10/19/2016 [facility] HEMATOLOGY Platelet 347 133 - 450 10/19/2016 [facility] HEMATOLOGY RDW 14.1 11.5 - 14.5 10/19/2016 [facility] HEMATOLOGY PT 13.8 12.0 - 14.7 10/19/2016 [facility] HEMATOLOGY INR 1.04 0.85 - 1.17 10/19/2016 [facility] HEMATOLOGY PTT 31.3 22.9 - 35.8 10/19/2016 [facility] URINE AND STOOL UA Urobilinogen <=1.0 mg/dL 0.1 - 1.0 10/19/2016 [facility] URINE AND STOOL UA Sq Epi None Seen 10/19/2016 [facility] URINE AND STOOL UA Leuk Est Large *ABN* (10/19/16 1:16 PM) Negative 10/19/2016 [facility] URINE AND STOOL UA RBC 14 0 - 2 10/19/2016 [facility] URINE AND STOOL UA Blood Negative (10/19/16 1:16 PM) Negative 10/19/2016 [facility] URINE AND STOOL UA Nitrite Negative (10/19/16 1:16 PM) Negative 10/19/2016 [facility] URINE AND STOOL UA Bacteria Moderate /HPF None Seen /HPF 10/19/2016 [facility] URINE AND STOOL UA WBC >182 0 - 5 10/19/2016 [facility] URINE AND STOOL UA Color Yellow *NA* (10/19/16 1:16 PM) Yellow 10/19/2016 [facility] URINE AND STOOL UA pH 5.0 5.0 - 8.0 10/19/2016 [facility] URINE AND STOOL UA Glucose 150 mg/dL Negative mg/dL 10/19/2016 [facility] URINE AND STOOL UA Turbidity Marked *ABN* (10/19/16 1:16 PM) Clear 10/19/2016 [facility] URINE AND STOOL UA Spec Grav 1.014 <=1.030 10/19/2016 [facility] URINE AND STOOL UA Protein 100 mg/dL Negative mg/dL 10/19/2016 [facility] URINE AND STOOL UA Bili Negative *NA* (10/19/16 1:16 PM) Negative 10/19/2016 [facility] URINE AND STOOL UA Ketones Negative mg/dL Negative mg/dL 10/19/2016 [facility] CHEM PANEL eGFR 19 02/18/2016 Result Comment: [...] should be multiplied by the estimated BMI. [facility] CHEM PANEL Creatinine Lvl 2.60 0.50 - 1.40 02/18/2016 [facility] CHEM PANEL CO2 23 24 - 32 02/18/2016 [facility] CHEM PANEL Potassium Lvl 4.4 3.5 - 5.1 02/18/2016 [facility] CHEM PANEL Sodium Lvl 137 135 - 145 02/18/2016 [facility] CHEM PANEL Chloride Lvl 105 95 - 109 02/18/2016 [facility] CHEM PANEL Calcium Lvl 8.0 8.5 - 10.5 02/18/2016 [facility] CHEM PANEL Glucose Lvl 229 70 - 99 02/18/2016 [facility] CHEM PANEL BUN 27 7 - 22 02/18/2016 [facility] CHEM PANEL AGAP 13.4 10.0 - 20.0 02/18/2016 [facility] HEMATOLOGY RBC 4.34 4.20 - 5.40 02/18/2016 [facility] HEMATOLOGY WBC 6.9 3.7 - 10.4 02/18/2016 [facility] HEMATOLOGY Hct 35.6 36.0 - 48.0 02/18/2016 [facility] HEMATOLOGY Hgb 12.0 12.0 - 16.0 02/18/2016 [facility] HEMATOLOGY Platelet 408 133 - 450 02/18/2016 [facility] HEMATOLOGY RDW 14.6 11.5 - 14.5 02/18/2016 [facility] HEMATOLOGY MCH 27.7 27.0 - 31.0 02/18/2016 [facility] MCHC 33.8 32.0 - 36.0 02/18/2016 [facility] HEMATOLOGY MPV 7.6 7.4 - 10.4 02/18/2016 [facility] MCV 82.0 80.0 - 98.0 02/18/2016 [facility] Segs-Bands # 4.9 1.5 - 8.1 02/18/2016 [facility] HEMATOLOGY Eosinophils # 0.1 0.0 - 0.5 02/18/2016 [facility] HEMATOLOGY Monocytes # 0.3 0.0 - 0.8 02/18/2016 [facility] HEMATOLOGY Lymphocytes # 1.5 1.0 - 5.5 02/18/2016 [facility] HEMATOLOGY Basophils 0.9 0.0 - 1.0 02/18/2016 [facility] HEMATOLOGY Eosinophils 2.0 0.0 - 4.0 02/18/2016 [facility] HEMATOLOGY Basophils # 0.1 0.0 - 0.2 02/18/2016 [facility] HEMATOLOGY Monocytes 4.4 2.0 - 12.0 02/18/2016 [facility] HEMATOLOGY Lymphocytes 21.4 20.0 - 40.0 02/18/2016 [facility] HEMATOLOGY Segs 71.3 45.0 - 75.0 02/18/2016 [facility] URINE AND STOOL UA Urobilinogen <=1.0 mg/dL 0.1 - 1.0 02/18/2016 [facility] URINE AND STOOL UA Mucus Few /LPF None Seen /LPF 02/18/2016 [facility] URINE AND STOOL UA Sq Epi Few /LPF Few /LPF 02/18/2016 [facility] URINE AND STOOL UA Leuk Est Trace *ABN* (02/18/16 1:44 PM) Negative 02/18/2016 [facility] URINE AND STOOL UA Bacteria Few /HPF None Seen /HPF 02/18/2016 [facility] URINE AND STOOL UA WBC 5 0 - 5 02/18/2016 [facility] URINE AND STOOL UA RBC 1 0 - 2 02/18/2016 [facility] URINE AND STOOL UA Nitrite Negative (02/18/16 1:44 PM) Negative 02/18/2016 [facility] URINE AND STOOL UA Blood Negative (02/18/16 1:44 PM) Negative 02/18/2016 [facility] URINE AND STOOL UA Ketones Negative mg/dL Negative mg/dL 02/18/2016 [facility] URINE AND STOOL UA Bili Negative *NA* (02/18/16 1:44 PM) Negative 02/18/2016 [facility] URINE AND STOOL UA Protein 100 mg/dL Negative mg/dL 02/18/2016 [facility] URINE AND STOOL UA Glucose 50 mg/dL Negative mg/dL 02/18/2016 [facility] URINE AND STOOL UA pH 5.0 5.0 - 8.0 02/18/2016 [facility] URINE AND STOOL UA Turbidity Slight *ABN* (02/18/16 1:44 PM) Clear 02/18/2016 [facility] URINE AND STOOL UA Spec Grav 1.018 <=1.030 02/18/2016 [facility] URINE AND STOOL UA Color Yellow *NA* (02/18/16 1:44 PM) Yellow 02/18/2016 [facility] CHEMISTRY eGFR 28 09/07/2012 NA <sup>2</sup>Result [...] should be multiplied by the estimated BMI. [facility] CHEMISTRY Globulin 3.9 2.0 - 4.0 09/07/2012 Normal [facility] CHEMISTRY CO2 25 24 - 32 09/07/2012 Normal [facility] CHEMISTRY Bili Total 0.4 0.2 - 1.3 09/07/2012 Normal [facility] CHEMISTRY Calcium Lvl 8.7 8.5 - 10.5 09/07/2012 Normal [facility] CHEMISTRY Total Protein 7.6 6.4 - 8.4 09/07/2012 Normal [facility] CHEMISTRY AST 8 0 - 37 09/07/2012 Normal [facility] CHEMISTRY AGAP 13.7 10.0 - 20.0 09/07/2012 Normal [facility] CHEMISTRY B/C Ratio 12 6 - 25 09/07/2012 Normal [facility] CHEMISTRY A/G Ratio 0.9 0.7 - 1.6 09/07/2012 Normal [facility] CHEMISTRY Chloride Lvl 105 95 - 109 09/07/2012 Normal [facility] CHEMISTRY Creatinine Lvl 1.9 0.5 - 1.4 09/07/2012 [facility] CHEMISTRY Sodium Lvl 140 135 - 145 09/07/2012 Normal [facility] CHEMISTRY BUN 23 7 - 22 09/07/2012 [facility] CHEMISTRY Potassium Lvl 3.7 3.5 - 5.1 09/07/2012 Normal [facility] CHEMISTRY Glucose Lvl 94 70 - 99 09/07/2012 Normal <sup>3</sup>Interpretive Data: Adult ref erence range values reflect the clinical guidelines
of the [place] [employer]. [facility] CHEMISTRY Albumin Lvl 3.7 3.5 - 5.0 09/07/2012 Normal [facility] CHEMISTRY ALT 14 0 - 65 09/07/2012 Normal [facility] CHEMISTRY Alk Phos 103 39 - 136 09/07/2012 Normal [facility] BEDSIDE GLUCOSE TESTING Gluc POC Lif scn 112 70 - 99 09/07/2012 [facility] <sup>1</sup>Interpretive Data: Upper Reportable Limit: 200 mg/dL. [facility] Pathology Reports No Data Provided [...] abdomen or pelvis E SL DLAWRENCE-PC 08/23/2018 [facility] Retroperitoneal Complete US EX AM: US [...] demonstrated. The ureters are patent. 10/31/2017 [facility] Knee series 3 views DX Study: 3 views of right knee joint. History: Knee pain. Comments: Decreased bone mineralization. No acute fracture or dislocation. There is tricompartmental osteophytosis suggesting mild degenerative arthritis. Chondrocalcinosis in the tibiofemoral compartment. IMPRESSION: No acute fracture or dislocation. 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 SL: ROSALIND-PC 07/25/2017 [facility] Chest 1view DX Patient Name: Sánchez HERNANDEZ : 1950; Age: 66 years y/o Female MR: [id number] * CHEST, portable, 1 view HISTORY: Chest pain. COMPARISON: 09/22/2011. TECHNIQUE: A portable frontal radiograph of the chest was obtained. FINDINGS: The lungs are clear. There are no pleural effusions. There is mild cardiomegaly. There is no evidence of failure. The regional skeleton is unremarkable. IMPRESSION: 1. No active disease. 2. Mild cardiomegaly. SL: [id number] 10/19/2016 [facility] Renal Stone CT Patient Name: Sánchez HERNANDEZ : 1950; Age: 65 years y/o Female MR: [id number] Study: Renal Stone CT 02/18/2016 1:38 PM [...] is intact. IMPRESSION: No acute findings. SL: [id number] 02/18/2016 [facility] Consultation Notes No Data Provided for This Section Discharge Summaries No Data Provided for This Section History and Physicals No Data Provided for This Section Vital Signs Vital Sign Value Date Comments Source Temperature Oral (F) 97.6 F 08/25/2018 [facility] Heart Rate 76 08/25/2018 [facility] Respitory Rate 18 08/25/2018 [facility] Systolic (mm Hg) 165 08/25/2018 [facility] Diastolic (mm Hg) 69 08/25/2018 [facility] Systolic (mm Hg) 152 08/25/2018 [facility] Diastolic (mm Hg) 63 08/25/2018 [facility] Respitory Rate 18 08/25/2018 [facility] Heart Rate 75 08/25/2018 [facility] Temperature Oral (F) 98.1 F 08/25/2018 [facility] Systolic (mm Hg) 135 08/25/2018 [facility] Diastolic (mm Hg) 63 08/25/2018 [facility] Respitory Rate 18 08/25/2018 [facility] Heart Rate 70 08/25/2018 [facility] Temperature Oral (F) 98.2 F 08/25/2018 [facility] Weight 76.903 08/24/2018 [facility] BMI Calculated 31.01 08/24/2018 [facility] Height 157.48 cm 08/24/2018 [facility] Weight 79.091 08/24/2018 [facility] BMI Calculated 31.89 08/24/2018 [facility] Height 157.48 cm 08/24/2018 [facility] Heart Rate 78 07/26/2017 [facility] Respitory Rate 18 07/26/2017 [facility] Systolic (mm Hg) 195 07/26/2017 [facility] Diastolic (mm Hg) 80 07/26/2017 [facility] Heart Rate 71 07/26/2017 [facility] Systolic (mm Hg) 188 07/26/2017 [facility] Diastolic (mm Hg) 84 07/26/2017 [facility] Respitory Rate 18 07/26/2017 [facility] Weight 84.091 07/25/2017 [facility] BMI Calculated 33.91 07/25/2017 [facility] Height 157.48 cm 07/25/2017 [facility] Respitory Rate 18 07/25/2017 [facility] Heart Rate 71 07/25/2017 [facility] Systolic (mm Hg) 197 07/25/2017 [facility] Diastolic (mm Hg) 86 07/25/2017 [facility] Systolic (mm Hg) 189 10/19/2016 [facility] Diastolic (mm Hg) 90 10/19/2016 [facility] Temperature Oral (F) 98.1 F 10/19/2016 [facility] Respitory Rate 17 10/19/2016 [facility] Respitory Rate 17 10/19/2016 [facility] Systolic (mm Hg) 176 10/19/2016 [facility] Diastolic (mm Hg) 87 10/19/2016 [facility] Systolic (mm Hg) 164 10/19/2016 [facility] Diastolic (mm Hg) 78 10/19/2016 [facility] Respitory Rate 17 10/19/2016 [facility] BMI Calculated 37.02 10/19/2016 [facility] Height 157.48 cm 10/19/2016 [facility] Temperature Oral (F) 98.9 F 10/19/2016 [facility] Heart Rate 96 10/19/2016 [facility] Weight 91.818 10/19/2016 [facility] Respitory Rate 17 02/18/2016 [facility] Heart Rate 89 02/18/2016 [facility] Systolic (mm Hg) 151 02/18/2016 [facility] Diastolic (mm Hg) 74 02/18/2016 [facility] Temperature Oral (F) 98.2 F 02/18/2016 [facility] Height 157.48 cm 02/18/2016 [facility] Weight 91.818 02/18/2016 [facility] Respitory Rate 18 02/18/2016 [facility] Temperature Oral (F) 98.4 F 02/18/2016 [facility] BMI Calculated 37.02 02/18/2016 [facility] Systolic (mm Hg) 144 02/18/2016 [facility] Diastolic (mm Hg) 99 02/18/2016 [facility] Heart Rate 97 02/18/2016 [facility] Respitory Rate 15 09/07/2012 [facility] Systolic (mm Hg) 122 09/07/2012 [facility] Diastolic (mm Hg) 60 09/07/2012 [facility] Diastolic (mm Hg) 74 09/07/2012 [facility] Systolic (mm Hg) 141 09/07/2012 [facility] Respitory Rate 10 09/07/2012 [facility] Systolic (mm Hg) 169 09/07/2012 [facility] Diastolic (mm Hg) 82 09/07/2012 [facility] Respitory Rate 10 09/07/2012 [facility] Heart Rate 84 09/07/2012 [facility] Weight 83.182 09/07/2012 [facility] Height 160.02 cm 09/07/2012 [facility] Weight 84.091 08/05/2012 [facility] Height 160.02 cm 08/05/2012 [facility] Encounters Location Location Details Encounter Type Encounter Number Reason For Visit Attending Provider ADM Date DC Date Status Source [facility] Emergency [id number] LAZARUS CASSIUS 08/05/2012 08/05/2012 Discharged [facility] DS [id number] SEBACEOUS CYST ON RIGHT SIDE OF FACE BENJAMÍN CLEOPATRA 09/07/2012 Active [facility] Emergency [id number] Miguel Abasilia Gautam 02/18/2016 02/18/2016 [facility] Emergency [id number] Jason Landon 10/19/2016 10/19/2016 [facility] Emergency [id number] Mark Redding 07/25/2017 07/26/2017 [facility] [place] [facility] [id number] 00 Jose Antonio Nelson 10/31/2017 11/01/2017 [facility] Observation [id number] Bruce Huff 08/24/2018 08/25/2018 [facility] Procedures Procedure Code Date Perfomer Comments Source Anesthesia for vaginal hysterectomy [id number] [facility] OPID [place] section [id number] [facility] Anesthesia for vaginal hysterectomy [id number] [facility] section [id number] [facility] Assessment and Plan Assessment and [...] gastroenteritis, resolved -Uncontrolled hypertension with nephropa thy -[id number] type 2 diabetes m omar CONSULTS: none PROCEDURES: Chief complaint , HPI and HOSPITAL COURSE: Patient with chronic kidney disease, hypertension came with back pain, workup negative for any acute etiology. Creatinine slightly worsened compared to baseline, was given IV fluids and advised her to follow-up with her medical consultant. She is on transplant list Discharge condition: [...] of p.o. medication -Resume home medications, hydralazine [place] N Heparin Observation, anticipate 1 midnight 08/25/2018 [facility] Plan of Care No Data Provided for This Section Social History Social History Date Source Social History TypeResponse Substance Abuse Use: None. Alcohol Never Smoking Status Never smoker; Ready to change: No; Concerns about tobacco use in household: No; Exposure to Tobacco Smoke None; Cigarette Smoking Last 365 Days No; Reg Smoking Cessation Counseling No entered on: 08/24/18 08/24/2018 [facility] Social History TypeResponse Smoking Status Never [...]
--- OUTSIDE RECORDS SUMMARY | 2020-02-09 16:17 | XMS REPORT | Continuity of Care Document ---
Author Author [facility] t Organization [facility] Address [address] [place] [address] Phone Unavailable Care Team Providers Care Tool Programmer Name Role Phone NONSTAFF PCP Unavailable CHAYO ZAYAS Attphys Unavailable Erich VAZQUEZ, Nasima De Leon Attphys Kira Lozoya MD Attphys Xochitl VAZQUEZ, Rigo Attphys Babita VAZQUEZ, Corrine Mena Mai Attphys Marlo AUDIT INTERN, Melissa Attphys Sariah TOUSASINT, Lulu Attphys Unavailable Best VAZQUEZ, Jam Attphys Sajja, Bruce Attphys NYASIA CONNOLLYAMIDIPAJENA Attphys Unavailable Jose Antonio Nelson Attphys Kira Redding Attphys BarbiRussel Jason Attphys GautamDerekantwon Nino Attphys CHAYO ZAYAS Admphys Unavailable RIGO LEUNG Admphys Unavailable Bruce Huff Admphys Payers Payer Name Policy Type Policy Number Effective Date Expiration Date Be dickerson [facility] [id number] 2019 00:00:[address] [facility] UNITED HEALTHCARE MEDICAREUNITED HEALTHC ARE [id number] [address] xxxxxxxxx 2014 00:00:00 [facility] MED[facility]ARE[facility] CONNECTED (MEDICARE-MEDICAID PLAN)xxxx [id number] 2019-PresentHMO [id number] 2019 00:00:00 Quinten Ho odist MEDICAID - MEDICAID [facility] STAR PLANxxxxxxxxxMe dicaid Contracted xxxxxxxxx [facility] - MEDICARE MGD CAREUNITED MEDICARE HMOxxxxxxxxx xxxxxxxxx [facility] MEDICAIDMEDICAID OF [place]xxxxxxxxxMedicaid xxxxxxxxx [facility] OPTUM NON UNITED - MEDICAID MGD CAREOPTUM NON-EGELAND STARxxxxxxx xx xxxxxxxxx [facility] Problems Condition Name Condition Details Condition Category Status Onset Date Resolution Date Last Treatment Date Treating Clinician Comments Source Acute renal failure (ARF) Acute renal failure (ARF) Disease Ac tive 2019-08-28 00:00:[address] BACK PAIN BACK PAIN Active 08/23/2018 [facility] Active 2018-08-23 00:00:00 2018-08-23 23:03:00 Steve Michele SYDNEE, NAUSEA AND VOMITING SYDNEE, NAUSEA AND VOMITING Active 08/23/2018 [facility] Diagnosis Active 2018-08-23 00:00:00 2018-08-27 15:14:00 Steve Michele Pre-transplant evaluation for chronic kidney disease P re-transplant evaluation for chronic kidney disease Disease Active 2018-02-19 00:00:00 [facility] Controlled type 2 diabetes mellitus with stage 5 chronic kidney disease not on chronic dialysis, without long-term current use of insulin Controlled type 2 diabetes mellitus with stage 5 chronic kidney disease not on chronic dialysis, without long-term current use of insulin Disease Active 2018-02-19 [facility] Essential hypertension Disease Active 2018-02-19 00:00:00 [facility] CKD (chronic kidney disease) stage 5, GFR less than 15 ml/min CKD (chronic kidney disease) stage 5, GFR less than 15 ml/min Disease Active 2018-02-19 00:00:00 [facility] Secondary hyperparathyroidism of renal origin Secondar y hyperparathyroidism of renal origin Disease Active 2018-02-19 00:00:00 [facility] Hyperlipidemia, unspecified hyperlipidemia type Hyperl ipidemia, unspecified hyperlipidemia type Disease Active 2018-02-19 00:00:00 [facility] SWOLLEN LEGS SWOL DANNY LEGS Active 07/25/2017 [facility] Diagnosis Active 2017-07-25 00:00:00 2017-07-25 17:31:00 Steve Michlee WEAKNESS WEAK NESS Active 10/19/2016 [facility] Diagnosis Active 2016-10-19 00:00:00 2016-10-19 15:05:00 Steve Michele LWR BACK PAIN LWR BACK PAIN Active 02/18/2016 [facility] Diagnosis Active 2016-02-18 00:00:00 2016-02-18 13:55:00 Steve Michele BMI 36.0-36.9,adult BMI 36.0-36.9,adult Disease Active 2014-12-30 00:00 :00 [facility] Dietary surveillance and counseling Dietary surveillance and cou nseling Disease Active 2014-12-30 00:00:00 [facility] SEBACEOUS CYST ON RIGHT SIDE OF FACE SEBACEOUS CYST ON RIGHT SIDE OF FACE Active 08/22/[address] [facility] Diagnosis Active 2012-08-22 00:00:00 2012-09-07 05:40:00 Steve Michele ABSCESS ABSC ESS Active 08/04/2012 [facility] Active 2012-08-04 12:00:00 2012-08-05 19:55:00 Steve Michele Back pain with radiation Back pain with radiation Disease Acti ve 2012-04-09 00:00:00 [facility] Knee pain Knee pain Disease Active 2012-04-09 00:00:00 [facility] Neck pain Neck pain Disease Active 2009-07-15 00:00:00 [facility] Arthralgia of multiple joints Arthralgia of multiple joints Disease Active 2008-09-03 00:00:00 [facility] Diabetes mellitus type II, uncontrolled Diabetes mellitus ty pe II, uncontrolled Disease Active 2006-03-27 00:00:00 [facility] Abdominal pain Problem Active [facility] 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 Problem Active [facility] Calciphylaxis Problem Active [facility] End-stage renal disease on peritoneal dialysis Problem Active [facility] Hypokalemia Problem Active [facility] Anemia Problem Active [facility] Sepsis Problem Active [facility] End-stage renal disease Problem Active [facility] Atrial fibrillation with rapid ventricular response Problem Active [facility] Hypertensive chronic kidney disease with stage 1 through stage 4 chronic kidney disease, or unspecified chronic kidney disease Hypertensive chronic kidney disease with stage 1 through stage 4 chronic kidney disease, or unspecified chronic kidney disease 11/01/2017 [facility] Problem 2017-11-01 14:25:16 Jamee Michele Type 2 diabetes mellitus with diabetic chronic kidney disease Type 2 diabetes mellitus with diabetic chronic kidney disease 11/01/2017 [facility] Problem 2017-11-01 14:25:16 Me lianne Michele 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 of oral hypoglycemic drugs FDC (current) use of oral hypoglycemic drugs 11/01/2017 [facility] Problem 2017-11-01 14:25:16 Steve Michele Arthritis (disorder) Arth ritis (disorder) Resolved Problem 08/27/2018 [facility], OPID [place] Problem Resolved 2018-08-27 21:46:03 Steve Michele Diabetes mellitus (disorder) D iabetes mellitus (disorder) Resolved Problem 08/27/2018 Manny CELSO [place] Problem Resolved 2018-08-27 21:46:03 Jamee Michele Hypercholesterolemia (disorder) Hypercholesterolemia (disorder) Resolved Problem 08/27/2018 [place] Problem Resolved 2018-08-27 21:46:03 Jamee Michele Depressive disorder (disorder) Depressive disorder (disorder) Resolved Problem 08/27/2018 [facility] CELSO [place] Problem Resolved 2018-08-27 21:46:03 Jamee Michele Arthritis Arth ritis Resolved Problem 09/09/2012 [facility] Problem Resolved 2012-09-09 20:42:22 Steve Michele Diabetes mellitus Diab etes mellitus Resolved Problem 09/09/2012 [facility] Problem Resolved 2012-09-09 20:42:22 Steve Michele Hypertension Hype rtension Active Problem 09/09/2012 [facility] Problem Active 2012-09-09 20:42:22 Steve Michele SEBACEOUS CYST SEBA CEOUS CYST Active [facility] Diagnosis Active 2012-09-07 05:40:00 [place] lianne Michele ACUTE KIDNEY FAILURE, UNSPECIFIED ACUTE KIDNEY FAILURE, UNSPECIFIED Active [facility] Diagnosis Active 2018-08-27 15 :14:00 Steve Michele NAUSEA WITH VOMITING, UNSPECIFIED NAUSEA WITH VOMITING, UNSPECIFIED Active [facility] Diagnosis Active 2018-08-27 15 :14:00 Steve Michele Hypertension Hypertension Disease Active [facility] Hypertriglyceridemia Hypertriglyceridemia Disease Active [facility] Insomnia Insomnia Disease Active [facility] Atrophic vaginitis Atrophic vaginitis Disease Active [facility] Chronic kidney disease, unspecified Chronic kidney [...] 2016-10-19 05:00:00 2016-10-22 04:25:28 2016-10-22 04:25:28 [facility] Discharge Diagnosis: Benign hypertension with CKD (chronic kidney disease) stage IV Discharge Diagno sis: Benign hypertension with CKD (chronic kidney disease) stage IV 02/18/2016 02/21/2016 [facility] Problem 2016-02-18 05:00:00 2016-02-21 04:55:26 2016-02-21 04:55:26 [facility] Discharge Diagnosis: Bilateral flank pain Discharge Diagnosis: Bilateral flank pain 02/18/2016 02/21/2016 [facility] Problem 2016-02-18 05:00:00 2016-02-21 04:55:26 2016-02-21 04:55:26 [facility] Allergies, Adverse Reactions, Alerts Allergy Name Allergy Type Status Severity Reaction(s) Onset Date Inacti ve Date Treating Clinician Comments Source No Known Allergies DA Active U 2019-08-28 00:00:00 [facility] No Known Allergies DA Active U 2018-09-15 00:00:00 [facility] No Known Allergies DA Active U 2017-04-03 00:00:00 [facility] Family History Family Member Diagnosis Comments Start Date Stop Date Source Natural brother Diabetes [facility] Natural daughter Diabetes [facility] Natural father Alzheimer's disease [facility] Natural sister Unremarkable [facility] Natural son Diabetes [facility] Natural mother Diabetes [facility] Social History Social Habit Start Date Stop Date Quantity Comments Source History SDOH Alcohol Std Drinks [facility] History SDOH Alcohol Binge [facility] Sex Assigned At [facility] Alcohol intake 2019-12-03 00:00:00 2019-12-03 00:00:00 Current non-drinker of alcohol (finding) [facility] Tobacco use and exposure 2019-08-29 00:00:00 2019-08-29 00:00:00 Nehazackary robles used [facility] History SDOH Alcohol Frequency 2019-08-28 00:00:00 2019-08-28 00:00:0 0 1 [facility] Social History 2018-08-24 10:16:41 2018-08-24 10:16:41 [facility] History SDOH Food Worry 2018-01-23 00:00:00 2018-01-23 00:00:00 1 [facility] History SDOH Food Scarcity 2018-01-23 00:00:00 2018-01-23 00:00:00 1 [facility] Smoking Status Start Date Stop Date Source Never smoker [facility] Medications Ordered Medication Name Filled Medication Name Start Date Stop Da te Current Medication? Ordering Clinician Indication Dosage Frequency Signature (SIG) Comments Components Source Cephalexin Monohydrate (Keflex) 500 Mg CAPSULE Cephale jett Monohydrate (Keflex) 500 Mg CAPSULE 2020-01-31 04:36:00 Yes 500 Every 12 Hours [facility] metFORMIN (GLUCOPHAGE XR) 500 mg ER extended release tablet 2019-12-03 00:00:00 Yes Type 2 diabetes mellitus with hyperglycemia, without long-term current use of insulin 500mg Q.5D Take 1 tablet by mouth 2 times buffy y. [facility] naproxen (NAPROSYN) 500 mg tablet 2019-12-03 00:00:00 Yes Bilateral low back pain with sciatica, sciatica laterality unspecified, unspecified chronicity 500mg Take 1 tablet by mouth 2 times daily (with meal s). [facility] gabapentin (NEURONTIN) 100 mg capsule 2019-12-03 00:00:00 Yes Neuropathy 100mg Take 1 capsule by mouth 3 times daily. [facility] glipiZIDE (GLUCOTROL) 10 mg tablet 2019-10-03 00:00:00 Yes Type 2 diabetes mellitus with hyperglycemia, without long-term current use of insulin 10mg Q.5D Take 1 tablet by mouth 2 times daily (before meals). [facility] aspirin 81 mg chewable tablet 2019-08-30 00:00:00 2019-09-29 23: 59:00 No 81mg QD Chew 1 tablet (81 mg total) daily for [address] [facility] potassium chloride (K-DUR) 10 MEQ CR tablet 2019-08-29 15:34:30 Yes 20meq QD Take 20 mEq by mouth daily. Quinten Alonso calcitrioL (ROCALTROL) 0.5 MCG capsule 2019-08-29 15:34:30 Yes 1ug QD Take 1 mcg by mouth daily. Quinten Methmalena rios ferric citrate (AURYXIA ORAL) 2019-08-29 15:34:30 Yes 420mg [id number] Take 420 mg by mouth 3 (three) [...] a day before meals for [address] [facility] amitriptyline (ELAVIL) 25 MG tablet 2019-08-29 00:00:0 0 2019-09-28 23:59:00 No 25mg QD Take 1 tablet (25 mg total) by mouth nig htly for [address] [facility] carvediloL (COREG) 6.25 MG tablet 2019-08-29 00:00:00 2019 23:59:00 No 6.25mg Q.5D Take 1 tablet (6 .25 mg total) by mouth 2 (two) times a day with meals for [address] [facility] furosemide (LASIX) 40 mg tablet 2019-07-19 00:00:00 Yes Localized edema 40mg Q.5D Take 1 tablet by mouth 2 times daily. [facility] carvediloL (COREG) 25 mg tablet 2019-07-19 00:00:00 Yes Essential hypertension with goal blood pressure less than 130/85 25mg Take 1 tablet by mouth 2 times daily (with meals). [facility] furosemide (LASIX) 40 mg tablet 2019-02-25 00:00:00 Yes Acute renal failure with acute tubular necrosis superimposed on stage 5 chronic kidney disease, not on chronic dialysis 40mg Q.5D Take 1 tablet by mouth 2 times daily. [facility] amitriptyline (ELAVIL) 25 mg tablet 2019-02-25 00:00:00 Yes Neuropathic pain syndrome (non-herpetic) 25mg Take 1 tabl et by mouth at bedtime nightly at bedtime (1 tablet = 25 mg). [place] [facility] allopurinol (ZYLOPRIM) 100 mg tablet 2019-02-25 00:00:00 Yes Idiopathic gout, unspecified chronicity, unspecified site 100mg QD Take 1 tablet by mouth daily. [facility] atorvastatin (LIPITOR) 40 mg tablet 2019-02-25 00:00:00 Yes Mixed hyperlipidemia 40mg Take 1 tablet by mouth at bedtime nightly. [facility] walker Misc 2019-02-25 00:00:00 Yes Fall, subsequ ent encounter by Mis.(Non-Drug; Combo Route) route Walker with seat and wheels along with hand brakes. [facility] glipiZIDE (GLUCOTROL) 10 mg tablet 2019-02-25 00:00: 00:00:00 No Type 2 diabetes mellitus with hyperglyce mehdi, without long-term current use of insulin 10mg Q.5D Take 1 tablet by mouth 2 times daily (before me als). [facility] tropicamide (MYDRIACYL) 0.5 % ophthalmic solution 2019-02-25 00:00:00 2019-08-24 23:59:00 No Type 2 diabetes carlos itus with hyperglycemia, without long-term current use of insulin 1[drp] Instill 1 Drop in each eye once as needed for up to 1 dose (for poor retina scan image). [facility] glipiZIDE (GLUCOTROL) 10 mg tablet 2018-08-28 00:00:00 201 01-22-14 00:00:00 No Type 2 diabetes mellitus with hyperglyce mehdi, without long-term current use of insulin 10mg Q.5D Take 1 tablet by mouth 2 times daily (before me als). [facility] atorvastatin 40 mg oral tablet 2018-08-25 [...] 2018-08-25 02:00:00 No Notes: (Same as: Lipitor) [facility] Ryne sennosides, [facility] 2018-08-25 02:00:00 No Notes: (Same as: Senokot) [facility] Hydralazine 2018-08-24 21:00:00 No Notes: (Same as: Apresoline) May interfere w/enteral feedings Take With Food. [facility] Robaxin 2018-08-24 16:00:00 No Notes: (Same as:Robaxin) [facility] metoprolol tartrate 2018-08-24 14:00:00 No Notes: (Same as: Lopressor) [facility] Amlodipine 2018-08-24 14:00:00 No Notes: (S elizabeth as: Norvasc) [facility] POLYETHYLENE GLYCOL 3350 2018-08-24 14:00:00 No Notes: Dissolve in 8 oz of water or juice. (Same as: Miralax) [facility] Docusate 2018-08-24 14:00:00 No Notes: (Same as: Colace) (Do Not Crush) [facility] heparin 2018-08-24 13:00:00 No Notes: porci ne heparin [facility] NIFEdipine 30 mg oral tablet, extended release 2018-08-24 07:23: 00 No Notes: (Same as: Adalat CC, Procardia XL ) Give on empty stomach. Take 1 hour before or 2 hours after meal; "Avoid grapefruit and grapefruit juice". Do not crush [facility] tizanidine 2018-08-24 06:36:00 No Notes: (S elizabeth As: Zanaflex) [facility] Hydralazine 2018-08-24 06:30:00 No Notes: (Same as: Apresoline) Push over 5 minutes [facility] Insulin Lispro 2018-08-24 06:07:00 No Notes: (Same as: Humalog ) Roll in palms of hands gently; Do not shake `vigorously. "Single Patient Use Only " WASTE: F/P - Black; E - Municipal Trash Bin Stable for 28 days at room temperature. Expires in days from Date [facility] Dextrose 50% Syringe 2018-08-24 06:07:00 No 12.5 gm, 25 mL, Route: IVP, Drug Form: INJ, Dosing Weight 79.091, kg, PRN, PRN Blood Glucose Results, Start date: 08/24/18 1:07:00 CDT, Duration: 30 day, Stop date: 09/23/18 1:06:00 CDT [facility] Glucagon 2018-08-24 06:07:00 No 1 mg, Route: IM, Drug form: PDR/INJ, PRN, Dosing Weight 79.091, kg, PRN Blood Glucose Results, Start date: 08/24/18 1:07:00 CDT, Duration: 30 day, Stop date: 09/23/18 1:06:00 CDT [facility] Lactated Ringers IV 1,000 mL 2018-08-24 06:06:00 No 1,000 mL, Rate: 125 ml/hr, Infuse over: 8 hr, Route: IV, Dosing Weight 79.091 kg, Total Volume: 1,000, Start date: 08/24/18 1:06:00 CDT, Duration: 30 day, Stop date: 09/23/18 1:05:00 CDT, 1.89, m2 [facility] Hydromorphone 2018-08-24 06:06:00 No Notes: (Same as: Dilaudid) [facility] Saline Flush 0.9% 2018-08-24 06:06:00 No Notes: (Same as: BD Posiflush) [facility] Acetaminophen 2018-08-24 06:06:00 No Notes: Do not exceed 4 gm/day. (Same as: Tylenol) [facility] Dextrose 50% Syringe 2018-08-24 06:06:00 No 25 mL, Route: IVP, Dosing Weight 79.091, kg, PRN, PRN Blood Glucose Results, Start date: 08/24/18 1:06:00 CDT, Duration: 30 day, Stop date: 09/23/18 1:05:00 CDT [facility] Bisacodyl 2018-08-24 06:06:00 No Notes: (Same As: Dulcolax, Bisco-Lax) [facility] Melatonin 2018-08-24 06:06:00 No Notes: (Sa me as: Melatonin) [facility] Ondansetron 2018-08-24 06:06:00 No Notes: (Same as: Zofran) MEDICATION WASTE Product Size: 4 mg Product Wasted: ___ mg Steve Michele Glucagon 2018-08-24 06:06:00 No 1 mg, Route: IM, PRN, Dosing Weight 79.091, kg, PRN Blood Glucose Results, Start date: 08/24/18 1:06:00 CDT, Duration: 30 day, Stop date: 09/23/18 1:05:[address] [facility] Saline Flush 0.9% 2018-08-24 02:56:00 No Notes: (Same as: BD Posiflush) [facility] furosemide (LASIX) 40 mg tablet 2018-07-20 00:00:00 00:00:00 No Acute renal failure with acute tubular necrosis superimposed on stage 5 chronic kidney disease, not on chronic dialysis 40mg Q.5D Take 1 tablet by mouth 2 times daily. [facility] furosemide (LASIX) 40 MG tablet 2018-03-28 09:10:13 Yes 20mg Q.5D Take 20 mg by mouth 2 (two) times daily . [facility] hydrALAZINE (APRESOLINE) 100 MG tablet 2018-03-28 09:10:13 Yes 50mg [id number] Take 50 mg by mouth 3 (three) times daily . [facility] NIFEdipine (ADALAT CC) 30 MG 24 hr tablet 2018-03-28 09:10:13 Yes 30mg QD Take 30 mg by mouth daily. [facility] aspirin 81 MG EC tablet 2018-03-28 09:10:13 Yes 81mg QD Take 81 mg by mouth daily. [facility] metoprolol (LOPRESSOR) 50 MG tablet 2018-03-28 09:10:13 Yes 50mg Q.5D Take 50 mg by mouth 2 (two) times daily. [facility] ferric citrate (AURYXIA ORAL) 2018-03-28 09:10:13 Yes 210mg Q.5D Take 210 mg by mouth 2 (two) times daily. [facility] amitriptyline (ELAVIL) 25 MG tablet 2018-02-19 09:09:17 Yes 25mg QD Take 25 mg by mouth nightly. [facility] calcitriol (ROCALTROL) 0.25 MCG capsule 2018-02-19 09:09:16 Yes .25ug QD Take 0.25 mcg by mouth daily. [facility] glipiZIDE (GLUCOTROL) 10 MG tablet 2018-02-19 09:09:16 Yes 10mg Take 10 mg by mouth 2 (two) times daily before meals. [facility] allopurinol (ZYLOPRIM) 100 MG tablet 2018-02-19 09:09:16 Ye s 100mg QD Take 100 mg by mouth daily. [facility] atorvastatin (LIPITOR) 40 MG tablet 2018-02-19 09:09:16 Yes 40mg QD Take 40 mg by mouth daily. [facility] triamcinolone (KENALOG) 0.025 % topical cream 2018-01-23 00: 00:00 Yes Rash Apply to affected area 3 times daily. [facility] calcitriol (ROCALTROL) 0.25 mcg capsule 2018-01-23 00:00:00 Yes Hypovitaminosis D .25ug QD Take 1 capsule by mouth daily. [facility] hydrALAZINE (APRESOLINE) 100 mg tablet 2018-01-23 00:00:00 Yes Essential hypertension with goal blood pressure less than 130/85 100mg Take 1 tablet by mouth 3 times daily. [facility] furosemide (LASIX) 40 mg tablet 2018-01-23 00:00:00 00:00:00 No Localized edema 40mg Q.5D Take 1 tablet by mouth 2 times daily. [facility] carvedilol (COREG) 12.5 mg tablet 2018-01-23 00:00:00 2019 00:00:00 No Essential hypertension with goal blood pressure less than 130/85 12.5mg Take 1 tablet by mouth 2 times daily (with meals). [facility] amitriptyline (ELAVIL) 25 mg tablet 2018-01-23 00:00:0 0 2019-02-25 00:00:00 No Neuropathic pain syndrome (non-herpetic) 25mg Take 1 tablet by mouth at bedtime nightly at bedtime (1 tablet = 25 mg). [facility] allopurinol (ZYLOPRIM) 100 mg tablet 2018-01-23 00:00: 00 2019-02-25 00:00:00 No Idiopathic gout, unspecified chronicity, unspecified s ite 100mg QD Take 1 tablet by mouth daily. [facility] atorvastatin (LIPITOR) 40 mg tablet 2017-11-28 00:00:0 0 2019-02-25 00:00:00 No Mixed hyperlipidemia 40mg Take 1 tablet by mouth at b edtime nightly. [facility] ferrous sulfate (FEOSOL) 325 mg (65 mg iron) tablet 09-01 00:00:00 Yes Iron deficiency anemia, unspecified iron deficiency anemia type 325mg QD Take 1 tablet by mouth daily (with breakfast). [facility] naproxen (NAPROSYN) 500 mg tablet 2017-09-01 00:00:00 Yes Arthralgia, unspecified joint 500mg Take 1 tablet by mouth 2 times daily (with meals). [facility] NIFEdipine (PROCARDIA XL) 30 mg extended release tablet 2017-09-01 00:00:00 Yes Essential hypertension 30mg Q.5D Take 1 tablet by mouth 2 times daily NEW DOSING TWICE DAILY. [facility] tiZANidine (ZANAFLEX) 4 mg tablet 2017-09-01 00:00:00 Ye s Spasm of muscle 4mg Take 1 tablet by mouth nightly at bedtime as nee ded for Muscle Spasms. [facility] lactulose (CONSTULOSE) 10 gram/15 mL oral solution 2017-08 00:00:00 Yes Slow transit constipation 20g Take 30 mL by mouth 3 ti mes daily. [facility] tramadol hydrochloride 50 MG Oral Tablet 2017-07-26 04:02:00 No 50 mg = 1 tab, PO, Q8H, PRN Pain, X 5 day, # 24 tab, 0 Refill(s) [facility] Glipizide 2017-07-26 03:09:00 Yes 10 mg, PO, BID, 0 Refill(s) [facility] Hydralazine 2017-07-26 03:09:00 Yes 25 mg, P O, BID, 0 Refill(s) [facility] atorvastatin 2017-07-26 03:08:00 Yes 40 mg, PO, Bedtime, 0 Refill(s) [facility] Tramadol 2017-07-26 03:06:00 Yes 50 mg, PO, PRN, 0 Refill(s) Steve Michele metoprolol tartrate 50 mg oral tablet 2017-07-26 03:06:00 Y es 50 mg = 1 tab, PO, BID, 0 Refill(s) [facility] Donal lombardo tramadol hydrochloride 50 MG Oral Tablet 2017-07-26 02:25:00 No 50 mg, Route: PO, Drug form: TAB, ONCE, Dosing Weight 84.091, kg, Priority: STAT, Start date: 07/25/17 21:25:00 CDT, Stop date: 07/25/17 21:25:00 [facility] am[facility]OD[facility] (NORVASC) 10 mg tablet 2017-05-01 00:00:00 Yes Essential hypertension 10mg QD Take 1 tablet by mouth daily. [facility] metoprolol tartrate (LOPRESSOR) 50 mg tablet 2017-04-17 00:0 0:00 Yes Essential hypertension 50mg Q.5D Take 1 tablet by mouth 2 times buffy y. [facility] hydrALAZINE (APRESOLINE) 25 mg tablet 2017-04-17 00:00:00 Yes Essential hypertension 25mg Q.5D Take 1 tablet by mouth 2 times daily. [facility] ondansetron (ZOFRAN) 4 mg tablet 2017-04-17 00:00:00 Yes Nausea 4mg Take 1 tablet by mouth every 8 hours as needed for Nausea. [facility] naproxen (NAPROSYN) 500 mg tablet 2017-01-31 00:00:00 2019 00:00:00 No Bilateral low back pain with sciatica, s ciatica laterality unspecified, unspecified chronicity 500mg Take 1 tablet by mouth 2 times daily (with meals). [facility] traMADol (ULTRAM) 50 mg tablet 2017-01-19 00:00:00 Yes Arthralgia of both lower legs 50mg Take 1 tablet by mouth every 8 hours as needed for Pain. [facility] Cephalexin 500 MG Oral Capsule [Keflex] 2016-10-19 21:17:00 Yes 500 mg = 1 cap, PO, BID, X 10 day, # 20 cap, 0 Refill(s) [facility] Sodium Chloride 0.154 MEQ/ML Injectable Solution 2016-10-19 20:0 7:00 No 1,000 mL, 1000 ml/hr, Infuse Over: 1 hr, Route: IV, 1,000, Drug form: INJ, ONCE, Priority: STAT, Dosing Weight 91.818 kg, Start date: 10/19/16 15:07:00 CDT, Duration: 1 doses or times, Stop date: 10/19/16 15:07:00 CDT [facility] Pyridium 2016-10-19 20:06:00 No Notes: Give with meals. (Same as: Pyridium) [facility] Ceftriaxone 2016-10-19 20:06:00 No Notes: (Same As: Rocephin). Use with 100 mL NS and infuse over 30 min MEDICATION WASTE Product Size: 2000 mg Product Wasted: ___ mg [facility] Saline Flush 0.9% 2016-10-19 17:40:00 No Notes: (Same as: BD Posiflush) [facility] Glipizide-Metformin 5-500 mg per tablet 2016-09-23 00:00:00 Yes Type 2 diabetes mellitus with hyperglycemia, without long-term current use of insulin 2{tbl} Q.5D Take 2 tablets by mouth 2 times daily (before meals). [facility] lisinopril (ZESTRIL) 40 mg tablet 2016-09-23 00:00:00 Yes Essential hypertension with goal blood pressure less than 130/85 40mg QD Take 1 tablet by mouth daily. [facility] gabapentin (NEURONTIN) 600 mg tablet 2016-09-23 00:00:00 Yes Neuropathic pain syndrome (non-herpetic) 600mg Take 1 tablet by mouth 3 time s daily. [facility] NIFEdipine (PROCARDIA XL) 90 mg extended release tablet 2016-09-23 00:00:00 Yes Essential hypertension with goal blood pressure less t claudio 130/85 90mg QD Take 1 tablet by mouth daily. [facility] amLODIPine (NORVASC) 10 mg tablet 2016-08-31 00:00:00 Yes Essential hypertension 10mg QD Take 1 tablet by mouth daily. [facility] blood glucose (PRECISION XTRA TEST STRIPS) test strips 2016-03-21 00:00:00 Yes Type 2 diabetes mellitus wit h hyperglycemia, without long-term current use of insulin 1{each} 1 Each by MISCELLANEOUS route 2 times weekly. [facility] lancets 30 gauge Misc 2016-03-21 00:00:00 Yes Type 2 diabetes mellitus with hyperglycemia, without long-term current use of insulin 100{each} 100 Each by [facility]Non[place]; Combo Route) route 2 times weekly. [facility] pioglitazone (ACTOS) 30 mg tablet 2016-03-18 00:00:00 Yes Type 2 diabetes mellitus with hyperglycemia, without long-term current use of insulin 30mg QD Take 1 tablet by mouth daily. [facility] BLOOD GLUCOSE METER monitoring kit 2016-03-18 00:00:00 Yes Type 2 diabetes mellitus with hyperglycemia, without long-term current use of insulin CHECK BLOOD GLUCOSE TWICE WEEKLY. [facility] Docusate Sodium 100 MG Oral Capsule [Colace] 2016-02-18 19:36:00 Yes 100 mg = 1 cap, PO, BID, PRN Constipation, # 20 cap, 0 Refill(s) [facility] Acetaminophen 300 MG / Codeine Phosphate 30 MG Oral Tablet [Tylenol with Codeine #3] 2016-02-18 19:36:00 No 1 - 2 tab, PO, Q4H, PRN Pain, X 2 day, # 20 tab, 0 Refill(s) [facility] Sodium Chloride 0.154 MEQ/ML Injectable Solution 2016-02-18 18:3 8:00 No 1,000 mL, 2,000 ml/hr, Infus e Over: 30 minutes, Route: IV, ONCE, Priority: STAT, Dosing Weight 91.818 kg, Start date: 02/18/16 13:38:00 CDT, Duration: 1 doses or times, Stop date: 02/18/16 13:38:[address] [facility] Saline Flush 0.9% 2016-02-18 18:38:00 No Notes: (Same as: BD Posiflush) [facility] Morphine 2016-02-18 18:38:00 No 4 mg, Route: IVP, ONCE, Dosing Weight 91.818, kg, Priority: STAT, Start date: 02/18/16 13:38:00 CDT, Stop date: 02/18/16 13:38:00 [address]T [facility] Ondansetron 2016-02-18 18:38:00 No 4 mg, Route: IVP, ONCE, Dosing Weight 91.818, kg, Priority: STAT, Start date: 02/18/16 13:38:00 CDT, Stop date: 02/18/16 13:38:[address] [facility] lactulose (CONSTULOSE) 10 gram/15 mL oral solution 2015-08 00:00:00 Yes Slow transit constipation 20g Take 30 mL by mouth 3 ti mes daily. [facility] ergocalciferol (VITAMIN D2) 50,000 unit capsule 2015-02-24 0 0:00:00 Yes Vitamin D deficiency 31368U Take 1 capsule by mouth weekly. [facility] ferrous sulfate (FEOSOL) 325 mg (65 mg iron) tablet 2014-05 00:00:00 Yes Other iron deficiency anemia 325mg QD Jay e 1 tablet by mouth daily (with breakfast). [facility] glyBURIDE-metFORMIN (GLUCOVANCE) 5-500 mg per tablet 2 00:00:00 Yes DM type 2 (diabetes mellitus, type 2) 2{tbl} Take 2 tablets by mouth 2 times daily (with meals). [facility] ciprofloxacin (CIPRO) 500 mg tablet 2013-10-22 00:00:00 Yes UTI (Lower Urinary Tract Infection) 500mg Q.5D Take 1 tablet by mouth 2 times da ethel. [facility] Vicodin 5/500 oral tablet 2012-09-07 17:00:05 Yes Roger Zayas Freet 1 tab, PO, Q6H, 30 tab, Substitution Allowed, Maintenance [facility] naloxone 2012-09-07 15:30:00 No Pito Vijay Hemmad 0.04 mg, 0.1 mL, Route: IVP, Drug form: INJ, Q2MIN, Dosing Weight 83.182, kg, PRN Narcotic Reversal, Start date: 09/07/12 10:30:00, Duration: 8 doses or times, Stop date: 09/08/12 0:00:00 [facility] flumazenil 2012-09-07 15:30:00 No Pito Vijay Hemmad 0.2 mg, 2 mL, Route: IVP, Drug form: INJ, PRN, Dosing Weight 83.182, kg, PRN Benzodiazepine Reversal, Initial dose, Start date: 09/07/12 10:30:00, Duration: 30 day, Stop date: 10/07/12 10:29:00 [facility] ondansetron 2012-09-07 15:30:00 No Pito Vijay Hemmad 4 mg, 2 mL, Route: IVP, Drug form: INJ, ONCE, Dosing Weight 83.182, kg, PRN Nausea & Vomiting, Start date: 09/07/12 10:30:00 [facility] acetaminophen-hydrocodone 325 mg-10 mg/15 mL oral solution 2012-09-07 15:30:00 No Pito Vijay Hemmad 1 5 mL, Route: PO, Drug Form: SOLN, Dosing Weight 83.182, kg, Q6H, PRN Pain, Start date: 09/07/12 10:30:00, Duration: 30 day, Stop date: 10/07/12 10:29:00 [facility] labetalol 2012-09-07 15:30:00 No Pito Vijay Hemmad 5 mg, 1 mL, Route: IVP, Drug form: INJ, Q5Min, Dosing Weight 83.182, kg, PRN Elevated BP, Start date: 09/07/12 10:30:00, Duration: 5 doses or times, Stop date: 09/08/12 0:00:00 [facility] tetanus-diphtheria toxoids adult intramuscular suspension 2012-06-02 20:10:00 No Vanessa Claudiozik 0.5 ml, Route: IM, Dosing Weight 82.727, kg, ONCE, STAT, Start date: 06/02/12 14:10:00, Stop date: 06/02/12 14:10:00 [facility] tetracycline 500 mg capsule 2010-11-23 00:00:00 Yes Skin infection 500mg Q.5D Take 1 Cap by mouth 2 times daily. [facility] Omeprazole 40 mg capsule 2010-11-23 00:00:00 Yes GERD (gastroesophageal reflux disease) 40mg QD Take 1 Cap by mouth daily. [facility] ibuprofen (MOTRIN) 800 mg tablet 2010-11-23 00:00:00 Yes Joint pain 800mg Take 1 Tab by mouth every 8 hours as needed for Pain. [facility] LANCETS 2008-09-03 00:00:00 Yes Diabetes david litus type II, uncontrolled use as directed for home glucose monitoring [facility] PRECISION XTRA TEST STRIPS 2008-09-03 00:00:00 Yes Diabetes mellitus type II, uncontrolled use as directed for home glucose monitori ng [facility] Amitriptyline Hcl Amitriptyline Hcl Yes 25 [facility] y [facility] Atorvastatin Calcium Atorvastatin Calcium Yes 40 Bedtime [facility] Calcitriol Calcitriol Yes .5 Daily [facility] Furosemide Furosemide Yes 40 Daily [facility] Glipizide Glipizide Yes 10 Daily [facility] Hydralazine Hcl Hydralazine Hcl Yes 50 Daily [facility] Metformin Hcl Metformin Hcl Yes 500 Twice A Day [facility] Potassium Chloride Potassium Chloride Yes 20 Da ethel [facility] Immunizations Ordered Immunization Name Filled Immunization Name Date Status Comments Source Hepatitis B Pedi/Adol 2017-12-26 00:00:00 Completed [facility] Herpes Zoster Vaccine In Clinic 2017-11-28 00:00:00 [facility] Hepatitis B Pedi/Adol 2017-11-28 00:00:00 [facility] PCV 13 (Pnuemococcal Conjugated 13 Valent) 2017-01-31 00:0 0:00 [facility] Tdap Tetanus, diphtheria, acellular pertussis Vaccine 2014-12-30 00:00:00 [facility] Influenza Vaccine 2006-03-27 00:00:00 [facility] PPV 23 Pneumococcal Polysaccaride 2005-05-25 00:00:00 Comp [facility] PPV 23 Pneumococcal Polysaccaride 2001-09-05 00:00:[address] [facility] Vital Signs Vital Name Observation Time Observation Value Comments Source Weight 2020-02-07 14:28:00 185 [lb_av] [facility] BMI (Body Mass Index) 2020-02-07 14:28:00 23.1 kg/m2 [facility] Body Temperature 2020-02-06 19:20:00 97.5 [degF] [facility] Body Temperature 2020-02-06 17:33:00 98.0 [degF] [facility] BMI (Body Mass Index) 2020-02-02 05:00:00 23.1 kg/m2 [facility] Weight 2020-02-01 12:06:00 185 [lb_av] [facility] Body Temperature 2020-01-31 09:00:00 98.6 [degF] [facility] BMI (Body Mass Index) 2020-01-27 17:12:00 33.2 kg/m2 [facility] Weight 2020-01-27 11:11:00 170 [lb_av] [facility] Systolic blood pressure 2019-08-29 10:34:45 109 mm[Hg] [facility] Diastolic blood pressure 2019-08-29 10:34:45 53 mm[Hg] [facility] Heart rate 2019-08-29 10:34:45 72 /min [facility] Body temperature 2019-08-29 10:34:45 36.33 Nathalia [facility] Respiratory rate 2019-08-29 10:34:45 16 /min [facility] Oxygen saturation in Arterial blood by Pulse oximetry 08-28 10:34:45 100 /min [facility] Body height 2019-08-28 20:04:00 157.5 cm [facility] Body weight 2019-08-28 20:04:00 82.2 kg [facility] BMI 2019-08-28 20:04:00 33.15 kg/m2 [facility] Systolic blood pressure 2019-07-19 09:42:00 146 mm[Hg] manual [facility] Diastolic blood pressure 2019-07-19 09:42:00 60 mm[Hg] manual [facility] Heart rate 2019-07-19 09:36:00 89 /min [facility] Body temperature 2019-07-19 09:36:00 36.61 N[facility]alia [facility] Respiratory rate 2019-07-19 09:36:00 19 /min [facility] Body height 2019-07-19 09:36:00 157.9 cm [facility] Body weight 2019-07-19 09:36:00 78.79 kg [facility] BMI 2019-07-19 09:36:00 31.60 kg/m2 [facility] Temperature Oral (F) 2018-08-25 13:00:00 97.6 F [facility] Heart Rate 2018-08-25 13:00:00 [facility] Respitory Rate 2018-08-25 13:00:00 [facility] Systolic (mm Hg) 2018-08-25 13:00:00 [facility] Diastolic (mm Hg) 2018-08-25 13:00:00 [facility] Systolic (mm Hg) 2018-08-25 09:00:00 [facility] Diastolic (mm Hg) 2018-08-25 09:00:00 [facility] Respitory Rate 2018-08-25 09:00:00 [facility] Heart Rate 2018-08-25 09:00:00 [facility] Temperature Oral (F) 2018-08-25 09:00:00 98.1 F [facility] Systolic (mm Hg) 2018-08-25 05:00:00 [facility] Diastolic (mm Hg) 2018-08-25 05:00:00 [facility] Respitory Rate 2018-08-25 05:00:00 [facility] Heart Rate 2018-08-25 05:00:00 [facility] Temperature Oral (F) 2018-08-25 05:00:00 98.2 F [facility] Weight 2018-08-24 10:14:00 [facility] BMI Calculated 2018-08-24 10:14:00 [facility] Height 2018-08-24 10:14:00 157.48 cm [facility] Weight 2018-08-24 02:54:00 [facility] BMI Calculated 2018-08-24 02:54:00 [facility] Height 2018-08-24 02:54:00 157.48 cm [facility] Heart Rate 2017-07-26 05:04:00 [facility] Respitory Rate 2017-07-26 05:04:00 [facility] Systolic (mm Hg) 2017-07-26 05:04:00 [facility] Diastolic (mm Hg) 2017-07-26 05:04:00 [facility] Heart Rate 2017-07-26 00:29:00 [facility] Systolic (mm Hg) 2017-07-26 00:29:00 [facility] Diastolic (mm Hg) 2017-07-26 00:29:00 [facility] Respitory Rate 2017-07-26 00:29:00 [facility] Weight 2017-07-25 20:25:00 [facility] BMI Calculated 2017-07-25 20:25:00 [facility] Height 2017-07-25 20:25:00 157.48 cm [facility] Respitory Rate 2017-07-25 20:25:00 [facility] Heart Rate 2017-07-25 20:25:00 [facility] Systolic (mm Hg) 2017-07-25 20:25:00 [facility] Diastolic (mm Hg) 2017-07-25 20:25:00 [facility] Systolic (mm Hg) 2016-10-19 21:35:00 [facility] Diastolic (mm Hg) 2016-10-19 21:35:00 [facility] Temperature Oral (F) 2016-10-19 21:35:00 98.1 F [facility] Respitory Rate 2016-10-19 21:35:00 [facility] Respitory Rate 2016-10-19 19:33:00 [facility] Systolic (mm Hg) 2016-10-19 19:33:00 [facility] Diastolic (mm Hg) 2016-10-19 19:33:00 [facility] Systolic (mm Hg) 2016-10-19 18:35:00 [facility] Diastolic (mm Hg) 2016-10-19 18:35:00 [facility] Respitory Rate 2016-10-19 18:35:00 [facility] BMI Calculated 2016-10-19 17:37:00 [facility] Height 2016-10-19 17:37:00 157.48 cm [facility] Temperature Oral (F) 2016-10-19 17:37:00 98.9 F [facility] Heart Rate 2016-10-19 17:37:00 [facility] Weight 2016-10-19 17:37:00 [facility] Respitory Rate 2016-02-18 20:01:00 [facility] Heart Rate 2016-02-18 20:01:00 [facility] Systolic (mm Hg) 2016-02-18 20:01:00 [facility] Diastolic (mm Hg) 2016-02-18 20:01:00 [facility] Temperature Oral (F) 2016-02-18 20:01:00 98.2 F [facility] Height 2016-02-18 18:27:00 157.48 cm [facility] Weight 2016-02-18 18:27:00 [facility] Respitory Rate 2016-02-18 18:27:00 [facility] Temperature Oral (F) 2016-02-18 18:27:00 98.4 F [facility] BMI Calculated 2016-02-18 18:27:00 [facility] Systolic (mm Hg) 2016-02-18 18:27:00 [facility] Diastolic (mm Hg) 2016-02-18 18:27:00 [facility] Heart Rate 2016-02-18 18:27:00 [facility] Respitory Rate 2012-09-07 16:20:00 [facility] Systolic (mm Hg) 2012-09-07 16:20:00 [facility] Diastolic (mm Hg) 2012-09-07 16:20:00 [facility] Diastolic (mm Hg) 2012-09-07 16:15:00 [facility] Systolic (mm Hg) 2012-09-07 16:15:00 [facility] Respitory Rate 2012-09-07 16:15:00 [facility] Systolic (mm Hg) 2012-09-07 16:00:00 [facility] Diastolic (mm Hg) 2012-09-07 16:00:00 [facility] Respitory Rate 2012-09-07 16:00:00 [facility] Heart Rate 2012-09-07 11:02:00 [facility] Weight 2012-09-07 11:01:00 [facility] Height 2012-09-07 11:01:00 160.02 cm [facility] Weight 2012-08-05 22:36:00 [facility] Height 2012-08-05 22:36:00 160.02 cm [facility] Procedures Procedure Date / Time Performed Performing Clinician [facility] e CT of abdomen and pelvis without contrast 2020-02-01 00:00:00 [facility] Complete non-obstetrical ultrasound of pelvis 2020-01-30 00:00:0 0 [facility] CT of abdomen and pelvis without contrast 2020-01-27 00:00:00 [facility] POC GLUCOSE 2019-08-29 11:04:00 Zoey Jc POC GLUCOSE 2019-08-29 06:21:00 Rigo Leung odist HC COMPLETE BLD COUNT W/AUTO DIFF 2019-08-29 05:56:00 Jan Sellers [facility] BASIC METABOLIC PANEL 2019-08-29 05:56:00 dio Melissa ferguson [facility] ESTIMATED GFR 2019-08-29 05:56:00 Melissa Sellers odaddison TROPONIN 2019-08-29 02:03:00 ChenmodeMelissa odaddison HEPATITIS B SURFACE ANTIGEN 2019-08-28 23:00:00 Jose Antonio Nelson HEPATITIS B SURFACE AB, QUANTITATIVE 2019-08-28 23:00:00 Jose Antonio Nelson POC GLUCOSE 2019-08-28 21:06:00 Rigo Leung Quinten white CT HEAD WO CONTRAST 2019-08-28 20:51:52 dio Melissademetri Alonso B NATRIURETIC PEPTIDE 2019-08-28 20:34:00 Melissa Sellers [facility] HC COMPLETE BLD COUNT W/AUTO DIFF 2019-08-28 20:34:00 Jan Sellers Shipley [facility] COMPREHENSIVE METABOLIC PANEL 2019-08-28 20:34:00 Melissa Sellers Quinten Robertist LIPID PANEL 2019-08-28 20:34:00 Melissa Sellers odaddison PROTHROMBIN TIME WITH INR 2019-08-28 20:34:00 dioMissydemetri pascal [facility] TROPONIN 2019-08-28 20:34:00 dioMelissa odist ESTIMATED GFR 2019-08-28 20:34:00 Melissa Sellers odist ECG 12-LEAD 2019-08-28 20:20:32 Melissa Sellers Shipley iVc odist CBC (WITHOUT DIFFERENTIAL) 2019-07-22 13:11:00 El Jung [facility] LIPID PROFILE 2019-07-22 13:11:00 Moises Jung [facility] LIVER PROFILE 2019-07-22 13:11:00 Moises Jung [facility] UREA NITROGEN/CREATININE 2019-07-22 13:11:00 Moises Jung [facility] ELECTROLYTES 2019-07-22 13:11:00 Moises Jung [facility] GLUCOSE, FASTING 2019-07-22 13:11:00 Moises Jung [facility] HEMOGLOBIN A1C 2019-07-22 13:11:00 Moises Jung [facility] URINALYSIS 2019-07-22 13:11:00 Moises Jung [facility] URINALYSIS MICROSCOPIC-REFLEX 2019-07-22 13:11:00 Colten Jung [facility] OPHTHALMOLOGY RETINAL SCAN 2019-02-25 11:09:06 [facility] HEMOGLOBIN A1C 2019-02-25 10:43:00 Moises Jung [facility] DIABETIC FOOT EXAM 2019-02-25 08:20:00 Moises Jung [facility] Anesthesia for vaginal hysterectomy [facility] Anesthesia for vaginal hysterectomy [facility] Plan of Care Planned Activity Planned Date Details Comments Source Future Scheduled Test 2020-07-21 00:00:00 Hemoglobin A1c juancarlos surement (procedure) [code = 51729675] [facility] Scheduled Test 2020-02-26 00:00:00 DM Foot Exam (Year ly) [code = DM Foot Exam (Yearly)] [facility] Scheduled Test 2020-02-26 00:00:00 DM Retinal Exam (Y early) [code = DM Retinal Exam (Yearly)] [facility] Scheduled Test 2020-02-13 00:00:00 IMM Influenza Seas onal Feb to July (>/= 19 yrs) [code = IMM Influenza Seasonal Feb to July (>/= 19 yrs)] [facility] Scheduled Test 2020-01-14 00:00:00 INFLUENZA VACCINE (#1) [code = INFLUENZA VACCINE (#1)] [facility] Scheduled Test 2019-12-14 00:00:00 INFLUENZA VACCINE [code = INFLUENZA VACCINE] [facility] Scheduled Test 2019-08-18 00:00:00 Screening for shayla gnant neoplasm of colon (procedure) [code = 494288383] [facility] Scheduled Test 2019-07-24 00:00:00 Breast Cancer Scrn (Yearly) [code = Breast Cancer Scrn (Yearly)] [facility] Scheduled Test 2019-05-16 00:00:00 MEDICARE ANNUAL WE LLNESS (YEAR 2 or FIRST YEAR if no IPPE) [code = MEDICARE ANNUAL WELLNESS (YEAR 2 or FIRST YEAR if no IPPE)] [facility] Test 2019 00:00:00 Screening for shayla gnant neoplasm of colon (procedure) [code = 941589570] [facility] Future Scheduled Test 2018-11-07 00:00:00 Hemoglobin A1c juancarlos surement (procedure) [code = 75536322[facility] 2018-10-20 00:00:00 PNEUMOCOCCAL 65+ H IGH/HIGHEST RISK (2 of 2 - PPSV23) [code = PNEUMOCOCCAL 65+ HIGH/HIGHEST RISK (2 of 2 - PPSV23)] [facility] Future Scheduled Test 2016 00:00:00 65+ PNEUMOCOCCAL V ACCINE (2 of 2 - PPSV23) [code = 65+ PNEUMOCOCCAL VACCINE (2 of 2 - PPSV23)] [facility] Scheduled Test 2001 00:00:00 BREAST CANCER SCRE ENING [code = BREAST CANCER SCREENING] [facility] Scheduled Test 2001 00:00:00 COLONOSCOPY SCREEN ING [code = COLONOSCOPY SCREENING] [facility] Scheduled Test 2001 00:00:00 SHINGLES VACCINES (#1) [code = SHINGLES VACCINES (#1)] [facility] Scheduled Test 1961 00:00:00 DIABETIC FOOT EXAM [code = DIABETIC FOOT EXAM] [facility] Scheduled Test 1961 00:00:00 URINE MICROALBUMIN [code = URINE MICROALBUMIN] [facility] Scheduled Test 1961 00:00:00 DIABETIC EYE EXAM [code = DIABETIC EYE EXAM] [facility] Future Scheduled Test 1961 00:00:00 Diabetic foot exam ination (regime/therapy) [code = 921734096] [facility] Future Scheduled Test 1961 00:00:00 Urine screening fo r protein (procedure) [code = 505802717] [facility] Future Scheduled Test 1951 00:00:00 DIABETIC RETINAL E YE EXAM [code = DIABETIC RETINAL EYE EXAM] [facility] Scheduled Test 1951 00:00:00 Screening for shayla nunes neoplasm of breast (procedure) [code = 453440966] [facility] Encounters Start Date/Time End Date/Time [facility] ID Source 2020-02-07 14:25:00 2020-02-07 14:25:00 Registered Emergency Room [facility] [id number] [facility] 2020-02-01 13:41:00 2020-02-06 19:29:00 [id number] 2020-01-27 11:17:00 2020-01-31 11:05:00 [facility] [id number] [facility] 2019-08-28 00:00:00 2019-08-29 00:00:00 [facility] [id number] [facility] 2018-08-23 21:28:00 2018-08-25 12:07:00 Outpatient Bruce Huff [facility] [id number] 2018-08-24 00:50:00 2018-08-24 00:50:00 Outpatient [facility]10 [facility] 2018-07-23 14:40:27 2018-07-23 14:40:27 Outpatient [facility] [id number] [facility] 2018-07-20 14:06:38 2018-07-20 14:06:38 Outpatient [facility] [id number] [facility] 2018-07-20 12:56:13 2018-07-20 12:56:13 Outpatient [facility] [id number] [facility] 2018-03-19 00:00:00 2018-03-19 00:00:00 Outpatient [facility] [id number] [facility] 2018-03-19 00:00:00 2018-03-19 00:00:00 Outpatient [facility] [id number] [facility] 2018-03-14 00:00:00 2018-03-14 00:00:00 Outpatient [facility] [id number] [facility] 2018-03-04 00:00:00 2018-03-04 00:00:00 Outpatient [facility] [id number] [facility] 2018-02-07 00:00:00 2018-02-07 00:00:00 Outpatient [facility] [id number] [facility] 2018-02-07 00:00:00 2018-02-07 00:00:00 Outpatient [facility] [id number] [facility] 2018-02-05 00:00:00 2018-02-05 00:00:00 Outpatient [facility] [id number] [facility] 2018-01-29 07:53:08 2018-01-29 07:53:08 Outpatient [facility] [id number] [facility] 2018-01-29 00:00:00 2018-01-29 00:00:00 Outpatient [facility] [id number] [facility] 2018-01-24 00:00:00 2018-01-24 00:00:00 Outpatient [facility] [id number] [facility] 2018-01-24 00:00:00 2018-01-24 00:00:00 Outpatient [facility] [id number] [facility] 2018-01-23 09:47:01 2018-01-23 09:47:01 Outpatient [facility] [id number] [facility] 2018-01-16 00:00:00 2018-01-16 00:00:00 Outpatient [facility] [id number] [facility] 2018-01-02 00:00:00 2018-01-02 00:00:00 Outpatient [facility] [id number] [facility] 2018-01-01 09:32:06 2018-01-01 09:32:06 Outpatient [facility] [id number] [facility] 2017-12-28 00:00:00 2017-12-28 00:00:00 Outpatient [facility] [id number] [facility] 2017-12-26 09:01:27 2017-12-26 09:01:27 Outpatient [facility] [id number] [facility] 2017-11-30 00:00:00 2017-11-30 00:00:00 Outpatient [facility] [id number] [facility] 2017-11-30 00:00:00 2017-11-30 00:00:00 Outpatient [facility] [id number] [facility] 2017-11-28 08:25:32 2017-11-28 08:25:32 Outpatient [facility] [id number] [facility] 2017-10-31 07:32:00 2017-10-31 23:59:00 Outpatient Jose Antonio Nelson [facility] [id number] 2017-09-05 08:42:29 2017-09-05 08:42:29 Outpatient [facility] [id number] [facility] 2017-09-05 08:19:56 2017-09-05 08:19:56 Outpatient [facility] [id number] [facility] 2017-09-01 12:46:59 2017-09-01 12:46:59 Outpatient [facility] [id number] [facility] 2017-08-03 09:58:11 2017-08-03 09:58:11 Outpatient [facility] [id number] [facility] 2017-08-02 11:44:52 2017-08-02 11:44:52 Outpatient [facility] [id number] [facility] 2017-07-25 15:07:00 2017-07-26 00:06:00 Outpatient Mark Redding [facility] [id number] 2017-03-02 00:00:00 2017-03-02 00:00:00 Outpatient [facility] [id number] [facility] 2017-02-16 00:00:00 2017-02-16 00:00:00 Outpatient [facility] [id number] [facility] 2017-01-31 14:18:37 2017-01-31 14:18:37 Outpatient [facility] [id number] [facility] 2016-10-19 12:24:00 2016-10-19 16:38:00 [facility] [id number] 2016-02-18 13:19:00 2016-02-18 15:05:00 Outpatient [facility] Flore[facility] [id number] Results Test Description Test Time Test Comments Results Result Comments Source Capillary blood glucose measurement by glucometer (mas s/volume) 2020-02-06 16:36:00 Test Item Bedside Glucose (test code = 71753-0) 142 70-120 Meter ID: [id number] [facility]Capillary [facility] glucose measurement by glucometer (mass/volume)2020-02-06 12:17:00* Test Item Value Reference Range Interpretation Comments Bedside Glucose (test code = 21045-6) 97 70-120 Meter ID: [id number] FallsBlood leukocytes automated count (number/volume)2020-02-06 06:08:00* Test Item Value Reference Range Interpretation Comments White Blood Count (test code = 6690-2) 13.27 4.8-10.8 [facility] FallsB[facility]au[facility] hospital erythrocytes automated count (number/volume)2020-02-06 06:08:00* Test Item Value Reference Range Interpretation Comments Red Blood Count (test code = 789-8) 3.26 3.6-5.1 [facility] FallsBlood hemoglobin measurement (moles/volume)2020-02-06 06:08:00* Test Item Value Reference Range Interpretation Comments Hemoglobin (test code = 61623-6) 8.8 12.0-16.0 [facility] FallsAutomated blood hematocrit (volume fraction)2020-02-06 06:08:00* Test Item Value Reference Range Interpretation Comments Hematocrit (test code = 4544-3) 27.1 34.2-44.1 [facility] FallsAutomated erythrocyte mean corpuscular qpfwzs2715-19-12 06:08:00* Test Item Value Reference Range Interpretation Comments Mean Corpuscular Volume (test code = 787-2) 83.1 81-99 [facility] FallsAutomated erythrocyte mean corpuscular hemoglobin (mass per erythrocyte)2020-02-06 06:08:00* Test Item Value Reference Range Interpretation Comments Mean Corpuscular Hemoglobin (test code = 785-6) 27.0 28-32 [facility] FallsAutomated erythrocyte mean corpuscular hemoglobin concentration measurement (mass/volume)2020-02-06 06:08:00* Test Item Value Reference Range Interpretation Comments Mean Corpuscular Hemoglobin Concent (test code = 786-4) 32.5 31-35 [facility] FallsRDW UwxFw-Eux2090-19-24 06:08:00* Test Item Value Reference Range Interpretation Comments Red Cell Distribution Width (test code = 52438-1) 17.3 11.7 -14.4 [facility] FallsAutomated blood platelet count (count/volume)2020-02-06 06:08:00* Test Item Value Reference Range Interpretation Comments Platelet Count (test code = 777-3) 283 140-360 [facility] FallsAutomated blood segmented neutrophil count as percentage of total uiaudpjlag1599-57-30 06:08:00* Test Item Value Reference Range Interpretation Comments Neutrophils (%) (Auto) (test code = 13609-7) 75.3 38.7-80.0 [facility] FallsAutomated blood lymphocyte count as percentage ot total ibtavzeuwp0383-89-08 06:08:00* Test Item Value Reference Range Interpretation Comments Lymphocytes (%) (Auto) (test code = 736-9) 13.8 18.0-39.1 [facility] FallsAutomated blood monocyte count as percentage of total tnmgedxjtg8198-25-69 06:08:00* Test Item Value Reference Range Interpretation Comments Monocytes (%) (Auto) (test code = 5905-5) 7.8 4.4-11.3 [facility] FallsAutcritical access hospitaled blood eosinophil count as percentage of total deiixcctun7107-97-17 06:08:00* Test Item Value Reference Range Interpretation Comments Eosinophils (%) (Auto) (test code = 713-8) 2.1 0.0-6.0 [facility] FallsAutomated blood basophil count as percentage of total thkapixxqt1648-86-44 06:08:00* Test Item Value Reference Range Interpretation Comments Basophils (%) (Auto) (test code = 706-2) 0.5 0.0-1.0 [facility] FallsFluoroscopic procedure less than one hour crkkmezq1578-93-56 06:08:00* Test Item Value Reference Range Interpretation Comments IM GRANULOCYTES % (test code = IM GRANULOCYTES %) 0.5 0.0- 1.0 [facility] FallsAutomated blood neutrophil count 2020-02-06 06:08:00* Test Item Value Reference Range Interpretation Comments Neutrophils # (Auto) (test code = 751-8) 10.0 2.1-6.9 [facility] FallsBlood lymphocytes count (number/volume) 2020-02-06 06:08:00* Test Item Value Reference Range Interpretation Comments Lymphocytes # (Auto) (test code = 36506-7) 1.8 1.0-3.2 [facility] FallsBlood monocytes automated count (number/volume)2020-02-06 06:08:00* Test Item Value Reference Range Interpretation Comments Monocytes # (Auto) (test code = 742-7) 1.0 0.2-0.8 [facility] FallsAutomated blood eosinophil count 2020-02-06 06:08:00* Test Item Value Reference Range Interpretation Comments Eosinophils # (Auto) (test code = 711-2) 0.3 0.0-0.4 [facility] FallsAutomated blood basophil count (count/volume)2020-02-06 06:08:00* Test Item Value Reference Range Interpretation Comments Basophils # (Auto) (test code = 704-7) 0.1 0.0-0.1 [facility] FallsFluoroscopic procedure less than one hour pszbzdwo2479-93-48 06:08:00* Test Item Value Reference Range Interpretation Comments Absolute Immature Granulocyte (auto (dae t code = Absolute Immature Granulocyte (auto) 0.07 0-0.1 [facility] Campuserum or plasma sodium measurement (moles/volume)2020-02-06 06:08:00* Test Item Value Reference Range Interpretation Comments Sodium Level (test code = 2951-2) 145 136-145 [facility] Campuserum or plasma potassium measurement (moles/volume)2020-02-06 06:08:00* Test Item Value Reference Range Interpretation Comments Potassium Level (test code = 2823-3) 3.7 3.5-5.1 [facility] Campuserum or plasma chloride measurement (moles/volume)2020-02-06 06:08:00* Test Item Value Reference Range Interpretation Comments Chloride Level (test code = 2075-0) 97 98-107 [facility] Campuserum or plasma carbon dioxide, total measurement (moles/volume)2020-02-06 06:08:00* Test Item Value Reference Range Interpretation Comments Carbon Dioxide Level (test code = 2028-9) 18 22-29 [facility] Campuserum or plasma anion ipr1394-67-34 06:08:00* Test Item Value Reference Range Interpretation Comments Anion Gap (test code = 08084-1) 33.7 8-16 [facility] Campuserum or plasma urea nitrogen measurement (mass/volume)2020-02-06 06:08:00* Test Item Value Reference Range Interpretation Comments Blood Urea Nitrogen (test code = 3094-0) 50 7-26 [facility] [place] Campuserum or plasma creatinine measurement (mass/volume)2020-02-06 06:08:00* Test Item Value Reference Range Interpretation Comments Creatinine (test code = 2160-0) 8.07 0.57-1.11 [facility] Campuserum or plasma urea nitrogen/creatinine mass ikocm4460-06-58 06:08:00* Test Item Value Reference Range Interpretation Comments BUN/Creatinine Ratio (test code = 3097-3) 6 6-25 [facility] FallsEstimated glomerular filtration rate (GFR) chwmlvnqdhifm9859-90-66 06:08:00* Test Item Value Reference Range Interpretation Comments Estimat Glomerular Filtration Rate (test code = 891672575) 5 >60 Ranges were taken from the National Kidney Disease Education Program and the [facility] Kidney Foundation literature.Reference ranges:60 or greater: Tgkrnf93-92 ( for 3 consecutive months): Chronic kidney disease 15 or less: Kidney failureBaylor Scott & White [facility] – [facility] FallsGlucose ilqldciiuze2603-88-10 06:08:00* Test Item Value Reference Range Interpretation Comments Glucose Level (test code = FWH4926) 112 74-118 [facility] Campuserum or plasma calcium measurement (mass/volume)2020-02-06 06:08:00* Test Item Value Reference Range Interpretation Comments Calcium Level (test code = 03117-4) 7.6 8.4-10.2 [facility] FallsPhosphorus bjteznwtiqb0997-12-48 06:08:00 * Test Item Value Reference Range Interpretation Comments Phosphorus Level (test code = WLZ7713) 5.6 2.3-4.7 [facility] Campuserum or plasma magnesium measurement (mass/volume)2020-02-06 06:08:00* Test Item Value Reference Range Interpretation Comments Magnesium Level (test code = 84137-8) 1.5 1.3-2.1 [facility] FallsBlsauk centre hospital leukocytes automated count (number/volume)2020-02-06 06:08:00* Test Item Value Reference Range Interpretation Comments White Blood Count (test code = 6690-2) 13.27 4.8-10.8 [facility] FallsBlsauk centre hospital erythrocytes automated count (number/volume)2020-02-06 06:08:00* Test Item Value Reference Range Interpretation Comments Red Blood Count (test code = 789-8) 3.26 3.6-5.1 [facility] FallsBlsauk centre hospital hemoglobin measurement (moles/volume)2020-02-06 06:08:00* Test Item Value Reference Range Interpretation Comments Hemoglobin (test code = 89781-5) 8.8 12.0-16.0 [facility] FallsAutomated blood hematocrit (volume fraction)2020-02-06 06:08:00* Test Item Value Reference Range Interpretation Comments Hematocrit (test code = 4544-3) 27.1 34.2-44.1 [facility] FallsAutomated erythrocyte mean corpuscular vqubeg2023-12-34 06:08:00* Test Item Value Reference Range Interpretation Comments Mean Corpuscular Volume (test code = 787-2) 83.1 81-99 [facility] FallsAutomated erythrocyte mean corpuscular hemoglobin (mass per erythrocyte)2020-02-06 06:08:00* Test Item Value Reference Range Interpretation Comments Mean Corpuscular Hemoglobin (test code = 785-6) 27.0 28-32 [facility] FallsAutomated erythrocyte mean corpuscular hemoglobin concentration measurement (mass/volume)2020-02-06 06:08:00* Test Item Value Reference Range Interpretation Comments Mean Corpuscular Hemoglobin Concent (test code = 786-4) 32.5 31-35 [facility] FallsRDW FhlJy-Nwd7585-68-24 06:08:00* Test Item Value Reference Range Interpretation Comments Red Cell Distribution Width (test code = 32219-5) 17.3 11.7 -14.4 [facility] FallsAutomated blood platelet count (count/volume)2020-02-06 06:08:00* Test Item Value Reference Range Interpretation Comments Platelet Count (test code = 777-3) 283 140-360 [facility] FallsAutomated blood segmented neutrophil count as percentage of total fjbfpojnha0818-55-54 06:08:00* Test Item Value Reference Range Interpretation Comments Neutrophils (%) (Auto) (test code = 56152-3) 75.3 38.7-80.0 [facility] FallsAutomated blood lymphocyte count as percentage ot total tgeosyueqs9018-05-42 06:08:00* Test Item Value Reference Range Interpretation Comments Lymphocytes (%) (Auto) (test code = 736-9) 13.8 18.0-39.1 [facility] FallsAutomated blood monocyte count as percentage of total blxncyeitm5156-95-90 06:08:00* Test Item Value Reference Range Interpretation Comments Monocytes (%) (Auto) (test code = 5905-5) 7.8 4.4-11.3 [facility] FallsAutomated blood eosinophil count as percentage of total mfyltjofcf6104-81-37 06:08:00* Test Item Value Reference Range Interpretation Comments Eosinophils (%) (Auto) (test code = 713-8) 2.1 0.0-6.0 [facility] FallsAutomated blood basophil count as percentage of total ozdesjkdwb3820-08-16 06:08:00* Test Item Value Reference Range Interpretation Comments Basophils (%) (Auto) (test code = 706-2) 0.5 0.0-1.0 [facility] FallsFluoroscopic procedure less than one hour indzbumw0165-78-66 06:08:00* Test Item Value Reference Range Interpretation Comments IM GRANULOCYTES % (test code = IM GRANULOCYTES %) 0.5 0.0- 1.0 [facility] FallsAutomated blood neutrophil count 2020-02-06 06:08:00* Test Item Value Reference Range Interpretation Comments Neutrophils # (Auto) (test code = 751-8) 10.0 2.1-6.9 [facility] FallsBlood lymphocytes count (number/volume) 2020-02-06 06:08:00* Test Item Value Reference Range Interpretation Comments Lymphocytes # (Auto) (test code = 86064-8) 1.8 1.0-3.2 [facility] FallsBlood monocytes automated count (number/volume)2020-02-06 06:08:00* Test Item Value Reference Range Interpretation Comments Monocytes # (Auto) (test code = 742-7) 1.0 0.2-0.8 [facility] FallsAutomated blood eosinophil count 2020-02-06 06:08:00* Test Item Value Reference Range Interpretation Comments Eosinophils # (Auto) (test code = 711-2) 0.3 0.0-0.4 [facility] FallsAutomated blood basophil count (count/volume)2020-02-06 06:08:00* Test Item Value Reference Range Interpretation Comments Basophils # (Auto) (test code = 704-7) 0.1 0.0-0.1 [facility] FallsFluoroscopic procedure less than one hour kbnmpyyq6775-99-70 06:08:00* Test Item Value Reference Range Interpretation Comments Absolute Immature Granulocyte (auto (dae t code = Absolute Immature Granulocyte (auto) 0.07 0-0.1 [facility] Campuserum or plasma sodium measurement (moles/volume)2020-02-06 06:08:00* Test Item Value Reference Range Interpretation Comments Sodium Level (test code = 2951-2) 145 136-145 [facility] Campuserum or plasma potassium measurement (moles/volume)2020-02-06 06:08:00* Test Item Value Reference Range Interpretation Comments Potassium Level (test code = 2823-3) 3.7 3.5-5.1 [facility] Campuserum or plasma chloride measurement (moles/volume)2020-02-06 06:08:00* Test Item Value Reference Range Interpretation Comments Chloride Level (test code = 2075-0) 97 98-107 [facility] Campuserum or plasma carbon dioxide, total measurement (moles/volume)2020-02-06 06:08:00* Test Item Value Reference Range Interpretation Comments Carbon Dioxide Level (test code = 2028-9) 18 22-29 [facility] Campuserum or plasma anion quo5192-51-99 06:08:00* Test Item Value Reference Range Interpretation Comments Anion Gap (test code = 89785-5) 33.7 8-16 [facility] Campuserum or plasma urea nitrogen measurement (mass/volume)2020-02-06 06:08:00* Test Item Value Reference Range Interpretation Comments Blood Urea Nitrogen (test code = 3094-0) 50 7-26 [facility] Campuserum or plasma creatinine measurement (mass/volume)2020-02-06 06:08:00* Test Item Value Reference Range Interpretation Comments Creatinine (test code = 2160-0) 8.07 0.57-1.11 [facility] Campuserum or plasma urea nitrogen/creatinine mass ergan7227-36-23 06:08:00* Test Item Value Reference Range Interpretation Comments BUN/Creatinine Ratio (test code = 3097-3) 6 6-25 [facility] FallsEstimated glomerular filtration rate (GFR) eyhzzmlbvwisr3374-93-74 06:08:00* Test Item Value Reference Range Interpretation Comments Estimat Glomerular Filtration Rate (test code = 860787619) 5 >60 Ranges were taken from the National Kidney Disease Education Program and the [facility] Kidney Foundation literature.Reference ranges:60 or greater: Qooqqv33-58 ( for 3 consecutive months): Chronic kidney disease 15 or less: Kidney failureBaylor Scott & White [facility] – Marble FallsGlucose lkfpnrybscz9522-08-83 06:08:00* Test Item Value Reference Range Interpretation Comments Glucose Level (test code = TRH8096) 112 74-118 [facility] Campuserum or plasma calcium measurement (mass/volume)2020-02-06 06:08:00* Test Item Value Reference Range Interpretation Comments Calcium Level (test code = 07946-2) 7.6 8.4-10.2 [facility] FallsPhosphorus yvroifiimdl3425-90-86 06:08:00 * Test Item Value Reference Range Interpretation Comments Phosphorus Level (test code = KSM0388) 5.6 2.3-4.7 [facility] Campuserum or plasma magnesium measurement (mass/volume)2020-02-06 06:08:00* Test Item Value Reference Range Interpretation Comments Magnesium Level (test code = 38509-7) 1.5 1.3-2.1 [facility] Campuserum or plasma intact pararthyroid hormone measurement (mass/volume)2020-02-04 13:46:00* Test Item Value Reference Range Interpretation Comments Parathyroid Hormone (test code = 2731-8) 243 [facility] Campuserum or plasma calcium measurement (mass/volume)2020-02-04 13:46:00* Test Item Value Reference Range Interpretation Comments Calcium (Send out) (test code = 61821-1) 8.2 8.7-10.3 [facility] FallsFluoroscopic procedure less than one hour vxqdxzvq9172-23-76 13:46:00* Test Item Value Reference Range Interpretation Comments Parathyroid Hormone Interpretation (test code = Parathyroid Hormone Interpretation) Comment . Interpretation Intact PTH Calcium (pg/mL) (mg/dL)Normal 15 - 65 8.6 - 10.2Pr imary Hyperparathyroidism >65 >10.2Secondary Hyperparathyroidism >65 <10.2Non-Parathyroid Hypercalcemia <65 >10.2Hypoparathyroidism <15 < 8.6Non- Parathyroid Hypocalcemia 15 - 65 < 8.6Performed at: - [facility] [id number] Director: Shravan Moss MD, Phone: [phone] at: [facility] [id number] Director: Claudio Carter MD, Phone: [phone] [facility] Campuserum or plasma intact pararthyroid hormone measurement (mass/volume)2020-02-04 13:46:00* Test Item Value Reference Range Interpretation Comments Parathyroid Hormone (test code = 2731-8) 243 [facility] Campuserum or plasma calcium measurement (mass/volume)2020-02-04 13:46:00* Test Item Value Reference Range Interpretation Comments Calcium (Send out) (test code = 10870-9) 8.2 8.7-10.3 [facility] FallsFluoroscopic procedure less than one hour fkjfuipp1780-60-73 13:46:00* Test Item Value Reference Range Interpretation Comments Parathyroid Hormone Interpretation (test code = Parathyroid Hormone Interpretation) Comment . Interpretation Intact PTH Calcium (pg/mL) (mg/dL)Normal 15 - 65 8.6 - 10.2Pr imary Hyperparathyroidism >65 >10.2Secondary Hyperparathyroidism >65 <10.2Non-Parathyroid Hypercalcemia <65 >10.2Hypoparathyroidism <15 < 8.6Non- Parathyroid Hypocalcemia 15 - 65 < 8.6Performed at: - [facility] [id number] Director: Shravan Moss MD, Phone: [phone] at: - [facility] [id number] Director: Claudio Carter MD, Phone: [phone] [facility]HEPTOBILIARY W SAPZV3905-62-51 20:08:00 [place] [address] Patient Name: TAY HERNANDEZ MR #: [id number] : 1950 Age/Sex: 69/F Req #: [id number] Adm Physician: CHAYO ZAYAS MD Ordered by: CHAYO ZAYAS MD Report #: [id number] Location: [facility]/SURG3 Room/Bed: [facility] Procedure: NM/HEPTOBILIARY W PHARM Exam Date: 02/03/20 [...] isconsidered to represent cl inical deficiency.Performed at: [facility] [address] [id number] Director: Shravan Moss MD, Phone: [phone] [facility] Campuserum or plasma folate measurement (mass/volume) 2020-02-03 08:47:00* Test Item Value Reference Range Interpretation Comments Folate (test code = 2284-8) 2.2 >3.0 A serum folate concentration of less than 3.1 ng/mL isconsidered to represent cl inical deficiency.Performed at: [facility] [address] [id number] Director: Shravan Moss MD, Phone: [phone] Scott & [facility] Marble FallsAutomated reticulocyte count as percentage of total kpzwqqdvmlpn2855-21-78 05:34:00* Test Item Value Reference Range Interpretation Comments Percent Reticulocyte Count (test code = 36921-4) 2.4 0.8-2 .2 [facility] Campuserum or plasma iron measurement (mass/volume)2020-02-03 05:34:00* Test Item Value Reference Range Interpretation Comments Iron Level (test code = 2498-4) 33 50-170 [facility] Campuserum or plasma iron binding capacity measurement (mass/volume)2020-02-03 05:34:00* Test Item Value Reference Range Interpretation Comments Total Iron Binding Capacity (test code = 2500-7) 112 261-4 78 [facility] Campuserum or plasma iron saturation measurement (mass fraction)2020-02-03 05:34:00* Test Item Value Reference Range Interpretation Comments Percent Iron Saturation (test code = 2502-3) 29 15-50 [facility] Campuserum or plasma transferrin measurement (mass/volume)2020-02-03 05:34:00* Test Item Value Reference Range Interpretation Comments Transferrin (test code = 3034-6) 80 180-382 [facility] Campuserum or plasma ferritin measurement (mass/volume)2020-02-03 05:34:00* Test Item Value Reference Range Interpretation Comments Ferritin (test code = 2276-4) 1296.89 4.63-204.00 [facility] FallsBlood cobalamin (vitamin B12) measurement (mass/volume)2020-02-03 05:34:00* Test Item Value Reference Range Interpretation Comments Vitamin B12 Level (test code = 07319-0) 1278 213-816 [facility] FallsAutomated reticulocyte count as percentage of total izzhpcfxrdga8713-35-15 05:34:00* Test Item Value Reference Range Interpretation Comments Percent Reticulocyte Count (test code = 61526-6) 2.4 0.8-2 .2 [facility] Campuserum or plasma iron measurement (mass/volume)2020-02-03 05:34:00* Test Item Value Reference Range Interpretation Comments Iron Level (test code = 2498-4) 33 50-170 [facility] Campuserum or plasma iron binding capacity measurement (mass/volume)2020-02-03 05:34:00* Test Item Value Reference Range Interpretation Comments Total Iron Binding Capacity (test code = 2500-7) 112 261-4 78 [facility] Campuserum or plasma iron saturation measurement (mass fraction)2020-02-03 05:34:00* Test Item Value Reference Range Interpretation Comments Percent Iron Saturation (test code = 2502-3) 29 15-50 [facility] Campuserum or plasma transferrin measurement (mass/volume)2020-02-03 05:34:00* Test Item Value Reference Range Interpretation Comments Transferrin (test code = 3034-6) 80 180-382 [facility] Campuserum or plasma ferritin measurement (mass/volume)2020-02-03 05:34:00* Test Item Value Reference Range Interpretation Comments Ferritin (test code = 2276-4) 1296.89 4.63-204.00 [facility] FallsBlood cobalamin (vitamin B12) measurement (mass/volume)2020-02-03 05:34:00* Test Item Value Reference Range Interpretation Comments Vitamin B12 Level (test code = 71936-2) 1278 213-816 [facility] Campustool gastrointestinal hemoglobin ewuezjnzf1459-05-56 04:13:00* Test Item Value Reference Range Interpretation Comments Stool Occult Blood (test code = 2335-8) POSITIVE NEGATIVE [facility] Campusto gastrointestinal hemoglobin jdjypihwa4512-79-09 04:13:00* Test Item Value Reference Range Interpretation Comments Stool Occult Blood (test code = 2335-8) POSITIVE NEGATIVE [facility] Campuserum or plasma creatine kinase measurement (enzymatic activity/volume)2020-02-02 13:15:00* Test Item Value Reference Range Interpretation Comments Creatine Kinase (test code = 2157-6) 13 29-168 [facility] Campuserum or plasma creatine kinase MB measurement (mass/volume)2020-02-02 13:15:00* Test Item Value Reference Range Interpretation Comments Creatine Kinase MB (test code = 64617-3) 2.00 0-5.0 [facility] FallsTroponin I measurement by highly sensitive enzyme jmrniumuuyf8662-11-64 13:15:00* Test Item Value Reference Range Interpretation Comments Troponin I (test code = 53475-1) 0.131 0-0.300 [facility] Campuserum or plasma creatine kinase measurement (enzymatic activity/volume)2020-02-02 13:15:00* Test Item Value Reference Range Interpretation Comments Creatine Kinase (test code = 2157-6) 13 29-168 [facility] Campuserum or plasma creatine kinase MB measurement (mass/volume)2020-02-02 13:15:00* Test Item Value Reference Range Interpretation Comments Creatine Kinase MB (test code = 75153-7) 2.00 0-5.0 [facility] FallsTroponin I measurement by highly sensitive enzyme ofvolvjsjbs5189-77-64 13:15:00* Test Item Value Reference Range Interpretation Comments Troponin I (test code = 17057-8) 0.131 0-0.300 [facility] Campuserum or plasma total bilirubin measurement (mass/volume)2020-02-02 04:40:00* Test Item Value Reference Range Interpretation Comments Total Bilirubin (test code = 1975-2) 0.5 0.2-1.2 [facility] FallsFluoroscopic procedure less than one hour bwjmrlmf0353-84-26 04:40:00* Test Item Value Reference Range Interpretation Comments Aspartate Amino Transf (AST/SGOT) (test code = Aspartate Amino Transf (AST/SGOT)) 17 5-34 [facility] Campuserum or plasma alanine aminotransferase measurement (enzymatic activity/volume)2020-02-02 04:40:00* Test Item Value Reference Range Interpretation Comments Alanine Aminotransferase (ALT/SGPT) (test code = 1742-6) 11 0-55 [facility] Campuserum or plasma protein measurement (mass/volume)2020-02-02 04:40:00* Test Item Value Reference Range Interpretation Comments Total Protein (test code = 2885-2) 5.6 6.5-8.1 [facility] Campuserum or plasma albumin measurement (mass/volume)2020-02-02 04:40:00* Test Item Value Reference Range Interpretation Comments Albumin (test code = 1751-7) 2.3 3.5-5.0 [facility] FallsPlasma globulin measurement (mass/volume) 2020-02-02 04:40:00* Test Item Value Reference Range Interpretation Comments Globulin (test code = 24575-3) 3.3 2.3-3.5 [facility] Campuserum or plasma albumin/globulin mass arqhv8743-85-16 04:40:00* Test Item Value Reference Range Interpretation Comments Albumin/Globulin Ratio (test code = 1759-0) 0.7 0.8-2.0 [facility] Campuserum or plasma alkaline phosphatase measurement (enzymatic activity/volume)2020-02-02 04:40:00* Test Item Value Reference Range Interpretation Comments Alkaline Phosphatase (test code = 6768-6) 123 40-150 [facility] Campuserum or plasma total bilirubin measurement (mass/volume)2020-02-02 04:40:00* Test Item Value Reference Range Interpretation Comments Total Bilirubin (test code = 1975-2) 0.5 0.2-1.2 [facility] FallsFluoroscopic procedure less than one hour lbhpsdil1892-31-21 04:40:00* Test Item Value Reference Range Interpretation Comments Aspartate Amino Transf (AST/SGOT) (test code = Aspartate Amino Transf (AST/SGOT)) 17 5-34 [facility] Campuserum or plasma alanine aminotransferase measurement (enzymatic activity/volume)2020-02-02 04:40:00* Test Item Value Reference Range Interpretation Comments Alanine Aminotransferase (ALT/SGPT) (test code = 1742-6) 11 0-55 [facility] Campuserum or plasma protein measurement (mass/volume)2020-02-02 04:40:00* Test Item Value Reference Range Interpretation Comments Total Protein (test code = 2885-2) 5.6 6.5-8.1 [facility] Campuserum or plasma albumin measurement (mass/volume)2020-02-02 04:40:00* Test Item Value Reference Range Interpretation Comments Albumin (test code = 1751-7) 2.3 3.5-5.0 [facility] FallsPlasma globulin measurement (mass/volume) 2020-02-02 04:40:00* Test Item Value Reference Range Interpretation Comments Globulin (test code = 09850-7) 3.3 2.3-3.5 [facility] Campuserum or plasma albumin/globulin mass qdbwg1451-94-33 04:40:00* Test Item Value Reference Range Interpretation Comments Albumin/Globulin Ratio (test code = 1759-0) 0.7 0.8-2.0 [facility] Campuserum or plasma alkaline phosphatase measurement (enzymatic activity/volume)2020-02-02 04:40:00* Test Item Value Reference Range Interpretation Comments Alkaline Phosphatase (test code = 6768-6) 123 40-150 [facility] FallsFluoroscopic procedure less than one hour zwkkmvgt4316-65-36 20:20:00* Test Item Value Reference Range Interpretation Comments Coronavirus (PCR) (test code = Coronavirus (PCR)) NOT DETECTED NOTD ETECTED SARS-CoV-2 PCRHologic Aptima SARS-CoV-2 assay is a nucleic amplification test in tended for the qualitative detection of RNA from SARS-CoV-2 from nasopharyngeal (AUDIT INTERN) specimens. It is used under Emergency Use [...] repr at testing oc clinically indicated.Tesing performed by:[facility] Laboratory Services3 [facility] [id number], Kavin alaniz MD, PhDBaylor Scott & [facility] FallsFluoroscopic procedure less than one hour wpkndvph7759-74-38 20:20:00* Test Item Value Reference Range Interpretation Comments Coronavirus (PCR) (test code = Coronavirus (PCR)) NOT DETECTED NOTD ETECTED SARS-CoV-2 PCRHologic Aptima SARS-CoV-2 assay is a nucleic amplification test in tended for the qualitative detection of RNA from SARS-CoV-2 from nasopharyngeal (AUDIT INTERN) specimens. It is used under Emergency Use [...] repr at testing oc clinically indicated.Tesing performed by:[facility] Laboratory Services[address] [place] [id number], Kavin alaniz MD, PhDBaylor Scott & [facility] FallsBacterial urine culture 2020-02-01 15:13:00* Test Item Value Reference Range Interpretation Comments Urine Culture (test code = 630-4) YEAST SPECIES [facility] FallsBacterial urine bnsrjmu8499-50-55 15:13:00* Test Item Value Reference Range Interpretation Comments Urine Culture (test code = 630-4) GERRY TROPICALIS [facility] FallsCT ABDOMEN/PELVIS DI0915-20-07 15:06:00 [facility] [address] [place] [address] Patient Name: TAY HERNANDEZ MR #: [id number] : 1950 Age/Sex: 69/F Req #: [id number] Adm Physician: CHAYO ZAYAS MD Ordered by: BOBY BOJORQUEZ MD Report #: [id number] Location: [facility] Room/Bed: [place] [address] Procedure: [id number] CT/CT ABDOMEN/ PELVIS WO Exam Date: 02/01/20 [...] COPY TO: BOBY BOJORQUEZ MD Urine color apcgzmdthdbel9460-79-96 14:20:00* Test Item Value Reference Range Interpretation Comments Urine Color (test code = 5778-6) YELLOW YELLOW [facility] FallsUrine mdfsqub5691-03-19 14:20:00* Test Item Value Reference Range Interpretation Comments Urine Clarity (test code = 04980-3) SL CLOUDY CLEAR [facility] Campuspecific gravity of Urine by Test strip 2020-02-01 14:20:00* Test Item Value Reference Range Interpretation Comments Urine Specific [place] (test code = 5811-5) 1.020 1.010-1.02 5 [facility] FallsUrine pH measurement by automated test vmbpq1533-20-32 14:20:00* Test Item Value Reference Range Interpretation Comments Urine pH (test code = 48995-8) 5.5 5-7 [facility] FallsUrine leukocyte esterase detection by zzicgnxb3111-17-19 14:20:00* Test Item Value Reference Range Interpretation Comments Urine Leukocyte Esterase (test code = 5799-2) LARGE NEGATIVE [facility] FallsUrine nitrite mhbotykqf5091-17-05 14:20:00* Test Item Value Reference Range Interpretation Comments Urine Nitrite (test code = 16078-3) NEGATIVE NEGATIVE [facility] FallsUrine protein measurement by test strip (mass/volume)2020-02-01 14:20:00* Test Item Value Reference Range Interpretation Comments Urine Protein (test code = 5804-0) 1+ NEGATIVE [facility] FallsUrine glucose ltfxznhlg5257-28-95 14:20:00* Test Item Value Reference Range Interpretation Comments Urine Glucose (UA) (test code = 2349-9) NEGATIVE NEGATIVE [facility] FallsUrine ketones detection by automated test znndy1858-81-89 14:20:00* Test Item Value Reference Range Interpretation Comments Urine Ketones (test code = 73310-0) NEGATIVE NEGATIVE [facility] FallsUrine urobilinogen measurement by test strip (mass/volume)2020-02-01 14:20:00* Test Item Value Reference Range Interpretation Comments Urine Urobilinogen (test code = 74342-6) 0.2 0.2-1 [facility] FallsUrine total bilirubin measurement (mass/volume)2020-02-01 14:20:00* Test Item Value Reference Range Interpretation Comments Urine Bilirubin (test code = 1978-6) NEGATIVE NEGATIVE [facility] FallsUrine erythrocytes voyawwccd3176-86-41 14:20:00* Test Item Value Reference Range Interpretation Comments Urine Blood (test code = 18639-2) TRACE NEGATIVE [facility] FallsAutomated urine sediment leukocyte count by microscopy (number/high power field)2020-02-01 14:20:00* Test Item Value Reference Range Interpretation Comments Urine WBC (test code = 5821-4) 11-20 0-5 [facility] FallsErythrocytes detection in urine sediment by light erfkumrzul1084-75-44 14:20:00* Test Item Value Reference Range Interpretation Comments Urine RBC (test code = 71144-3) 6-10 0-5 [facility] FallsBacteria detection in urine sediment by light ukiqihvjaw8878-38-84 14:20:00* Test Item Value Reference Range Interpretation Comments Urine Bacteria (test code = 25614-6) RARE NONE [facility] FallsEpithelial cells detection in urine sediment by light hcmzdijpkr3419-93-74 14:20:00* Test Item Value Reference Range Interpretation Comments Urine Epithelial Cells (test code = 24395-4) FEW NONE [facility] FallsUrine color shtcjbpusqfxi0009-17-14 14:20:00* Test Item Value Reference Range Interpretation Comments Urine Color (test code = 5778-6) YELLOW YELLOW [facility] FallsUrine mqtgvhh5069-80-58 14:20:00* Test Item Value Reference Range Interpretation Comments Urine Clarity (test code = 20681-4) SL CLOUDY CLEAR [facility] Campuspecific gravity of Urine by Test strip 2020-02-01 14:20:00* Test Item Value Reference Range Interpretation Comments Urine Specific [place] (test code = 5811-5) 1.020 1.010-1.02 5 [facility] FallsUrine pH measurement by automated test gcluu3845-27-21 14:20:00* Test Item Value Reference Range Interpretation Comments Urine pH (test code = 94471-9) 5.5 5-7 [facility] FallsUrine leukocyte esterase detection by unjkgldb4084-19-25 14:20:00* Test Item Value Reference Range Interpretation Comments Urine Leukocyte Esterase (test code = 5799-2) LARGE NEGATIVE [facility] FallsUrine nitrite pkboaboyb9241-58-19 14:20:00* Test Item Value Reference Range Interpretation Comments Urine Nitrite (test code = 78620-9) NEGATIVE NEGATIVE [facility] FallsUrine protein measurement by test strip (mass/volume)2020-02-01 14:20:00* Test Item Value Reference Range Interpretation Comments Urine Protein (test code = 5804-0) 1+ NEGATIVE [facility] FallsUrine glucose znjvlqeek8772-46-49 14:20:00* Test Item Value Reference Range Interpretation Comments Urine Glucose (UA) (test code = 2349-9) NEGATIVE NEGATIVE [facility] FallsUrine ketones detection by automated test gxkbc8589-47-46 14:20:00* Test Item Value Reference Range Interpretation Comments Urine Ketones (test code = 90379-7) NEGATIVE NEGATIVE [facility] FallsUrine urobilinogen measurement by test strip (mass/volume)2020-02-01 14:20:00* Test Item Value Reference Range Interpretation Comments Urine Urobilinogen (test code = 79505-9) 0.2 0.2-1 [facility] FallsUrine total bilirubin measurement (mass/volume)2020-02-01 14:20:00* Test Item Value Reference Range Interpretation Comments Urine Bilirubin (test code = 1978-6) NEGATIVE NEGATIVE [facility] FallsUrine erythrocytes fmanbvebx1480-40-13 14:20:00* Test Item Value Reference Range Interpretation Comments Urine Blood (test code = 65022-9) TRACE NEGATIVE [facility] FallsAutomated urine sediment leukocyte count by microscopy (number/high power field)2020-02-01 14:20:00* Test Item Value Reference Range Interpretation Comments Urine WBC (test code = 5821-4) 11-20 0-5 [facility] FallsErythrocytes detection in urine sediment by light bzjtrpzkpt6781-10-44 14:20:00* Test Item Value Reference Range Interpretation Comments Urine RBC (test code = 62100-6) 6-10 0-5 [facility] FallsBacteria detection in urine sediment by light kjaeowuyqb0175-68-32 14:20:00* Test Item Value Reference Range Interpretation Comments Urine Bacteria (test code = 12808-5) RARE NONE [facility] FallsEpithelial cells detection in urine sediment by light zwmfcvvaxm8063-26-69 14:20:00* Test Item Value Reference Range Interpretation Comments Urine Epithelial Cells (test code = 28580-1) FEW NONE [facility] FallsCHEST SINGLE (PORTABLE)2020-02-01 14:08:00 [facility] [address] [address] Patient Name: TAY HERNANDEZ MR #: [id number] : 1950 Age/Sex: 69/F Req #: [id number] Adm Physician: CHAYO ZAYAS MD Ordered by: BOBY BOJORQUEZ MD Report #: [id number] Location: [facility] Room/Bed: [place] [address] Procedure: [id number] DX/CHEST SINGL E (PORTABLE) Exam Date: 02/01/20 Exam Time: 123 REPORT STATUS: Signed EXAMINATION: CHEST SINGLE (PORTABLE) INDICATION: abd pain [id number] COMPARISON: Chest radiograph 01/27/2020 FINDINGS: TUBES [...] (PT) in platelet poor plasma by coagulation kemfd0257-80-95 12:35:00* Test Item Value Reference Range Interpretation Comments Prothrombin Time (test code = 5902-2) 16.6 11.9-14.5 [facility] FallsINR in Platelet poor plasma by Coagulation rdfpk3288-62-07 12:35:00* Test Item Value Reference Range Interpretation Comments Prothromb Time International Ratio (test code = 6301-6) 1.28 Oral Anticoagulant Therapy INR Values:1. Low Intensity Therapy 1.5 - 2.02 . Moderate Intensity Therapy 2.0 - 3.03. High Intensity Therapy(1) 2.5 - 3. 54. High Intensity Therapy(2) 3.0 - 4.05. Panic Value INR > 5.0 [facility] FallsActivated partial thromboplastin time (aPTT) in platelet poor plasma by coagulation mtplu7606-36-78 12:35:00* Test Item Value Reference Range Interpretation Comments Activated Partial Thromboplast Time (test code = 41758-7) 37.1 23.8-35.5 [facility] FallsFluoroscopic procedure less than one hour bbpkaeee5310-69-67 12:35:00* Test Item Value Reference Range Interpretation Comments Lactic Acid Level (test code = Lactic Acid Level) 1.6 0.5- 2.0 [facility] FallsBlood vwbvvea1219-48-63 12:35:00* Test Item Value Reference Range Interpretation Comments Blood Culture (test code = 45868996) NO GROWTH AFTER 5 DAYS, FINAL REPORT [facility] FallsProthrombin time (PT) in platelet poor plasma by coagulation zmilm7351-55-01 12:35:00* Test Item Value Reference Range Interpretation Comments Prothrombin Time (test code = 5902-2) 16.6 11.9-14.5 [facility] FallsINR in Platelet poor plasma by Coagulation wpsom3037-88-27 12:35:00* Test Item Value Reference Range Interpretation Comments Prothromb Time International Ratio (test code = 6301-6) 1.28 Oral Anticoagulant Therapy INR Values:1. Low Intensity Therapy 1.5 - 2.02 . Moderate Intensity Therapy 2.0 - 3.03. High Intensity Therapy(1) 2.5 - 3. 54. High Intensity Therapy(2) 3.0 - 4.05. Panic Value INR > 5.0 [facility] FallsActivated partial thromboplastin time (aPTT) in platelet poor plasma by coagulation jotqd7820-37-78 12:35:00* Test Item Value Reference Range Interpretation Comments Activated Partial Thromboplast Time (test code = 29262-5) 37.1 23.8-35.5 [facility] FallsFluoroscopic procedure less than one hour hklraszi2875-73-47 12:35:00* Test Item Value Reference Range Interpretation Comments Lactic Acid Level (test code = Lactic Acid Level) 1.6 0.5- 2.0 [facility] FallsBlood okjiqen0855-02-17 12:35:00* Test Item Value Reference Range Interpretation Comments Blood Culture (test code = 19171880) NO GROWTH AFTER 5 DAYS, FINAL REPORT [facility] FallsBlsauk [facility] leukocytes automated count (number/volume)2020-01-31 05:00:00* Test Item Value Reference Range Interpretation Comments White Blood Count (test code = 6690-2) 12.01 4.8-10.8 [facility] erythrocytes automated count (number/volume)2020-01-31 05:00:00* Test Item Value Reference Range Interpretation Comments Red Blood Count (test code = 789-8) 2.80 3.6-5.1 [facility] FallsBlood hemoglobin measurement (moles/volume)2020-01-31 05:00:00* Test Item Value Reference Range Interpretation Comments Hemoglobin (test code = 39687-1) 8.0 12.0-16.0 [facility] FallsAutomated blood hematocrit (volume fraction)2020-01-31 05:00:00* Test Item Value Reference Range Interpretation Comments Hematocrit (test code = 4544-3) 24.5 34.2-44.1 [facility] FallsAutomated erythrocyte mean corpuscular rorpls4458-42-10 05:00:00* Test Item Value Reference Range Interpretation Comments Mean Corpuscular Volume (test code = 787-2) 87.5 81-99 [facility] FallsAutomated erythrocyte mean corpuscular hemoglobin (mass per erythrocyte)2020-01-31 05:00:00* Test Item Value Reference Range Interpretation Comments Mean Corpuscular Hemoglobin (test code = 785-6) 28.6 28-32 [facility] FallsAutomated erythrocyte mean corpuscular hemoglobin concentration measurement (mass/volume)2020-01-31 05:00:00* Test Item Value Reference Range Interpretation Comments Mean Corpuscular Hemoglobin Concent (test code = 786-4) 32.7 31-35 [facility] Mar[facility] FallsRDW TuvIu-Vlz3495-23-18 05:00:00* Test Item Value Reference Range Interpretation Comments Red Cell Distribution Width (test code = 25353-1) 17.2 11.7 -14.4 [facility] FallsAutomated blood platelet count (count/volume)2020-01-31 05:00:00* Test Item Value Reference Range Interpretation Comments Platelet Count (test code = 777-3) 239 140-360 [facility] FallsAutomated blood segmented neutrophil count as percentage of total ktdhjcahux6566-99-44 05:00:00* Test Item Value Reference Range Interpretation Comments Neutrophils (%) (Auto) (test code = 07835-6) 82.4 38.7-80.0 [facility] FallsAutomat blood lymphocyte count as percentage ot total njaqcqcxrx2144-01-68 05:00:00* Test Item Value Reference Range Interpretation Comments Lymphocytes (%) (Auto) (test code = 736-9) 8.7 18.0-39.1 [facility] FallsAutomated blood monocyte count as percentage of total ibdypsrxrb5524-64-68 05:00:00* Test Item Value Reference Range Interpretation Comments Monocytes (%) (Auto) (test code = 5905-5) 5.5 4.4-11.3 [facility] FallsAutomated blood eosinophil count as percentage of total tjhsvevbbj9325-99-12 05:00:00* Test Item Value Reference Range Interpretation Comments Eosinophils (%) (Auto) (test code = 713-8) 2.3 0.0-6.0 [facility] FallsAutomated blood basophil count as percentage of total paigksbvzp4404-73-33 05:00:00* Test Item Value Reference Range Interpretation Comments Basophils (%) (Auto) (test code = 706-2) 0.5 0.0-1.0 [facility] FallsFluoroscopic procedure less than one hour jhfwsncr6449-39-66 05:00:00* Test Item Value Reference Range Interpretation Comments IM GRANULOCYTES % (test code = IM GRANULOCYTES %) 0.6 0.0- 1.0 [facility] FallsAutomated blood neutrophil count 2020-01-31 05:00:00* Test Item Value Reference Range Interpretation Comments Neutrophils # (Auto) (test code = 751-8) 9.9 2.1-6.9 [facility] FallsBlood lymphocytes count (number/volume) 2020-01-31 05:00:00* Test Item Value Reference Range Interpretation Comments Lymphocytes # (Auto) (test code = 04929-1) 1.1 1.0-3.2 [facility] FallsBlood monocytes automated count (number/volume)2020-01-31 05:00:00* Test Item Value Reference Range Interpretation Comments Monocytes # (Auto) (test code = 742-7) 0.7 0.2-0.8 [facility] FallsAutomated blood eosinophil count 2020-01-31 05:00:00* Test Item Value Reference Range Interpretation Comments Eosinophils # (Auto) (test code = 711-2) 0.3 0.0-0.4 [facility] FallsAutomated blood basophil count (count/volume)2020-01-31 05:00:00* Test Item Value Reference Range Interpretation Comments Basophils # (Auto) (test code = 704-7) 0.1 0.0-0.1 [facility] FallsFluoroscopic procedure less than one hour losoemki3804-29-67 05:00:00* Test Item Value Reference Range Interpretation Comments Absolute Immature Granulocyte (auto (dae t code = Absolute Immature Granulocyte (auto) 0.07 0-0.1 [facility] Campuserum or plasma sodium measurement (moles/volume)2020-01-31 05:00:00* Test Item Value Reference Range Interpretation Comments Sodium Level (test code = 2951-2) 136 136-145 [facility] Campuserum or plasma potassium measurement (moles/volume)2020-01-31 05:00:00* Test Item Value Reference Range Interpretation Comments Potassium Level (test code = 2823-3) 3.3 3.5-5.1 [facility] Campuserum or plasma chloride measurement (moles/volume)2020-01-31 05:00:00* Test Item Value Reference Range Interpretation Comments Chloride Level (test code = 2075-0) 95 98-107 [facility] Campuserum or plasma carbon dioxide, total measurement (moles/volume)2020-01-31 05:00:00* Test Item Value Reference Range Interpretation Comments Carbon Dioxide Level (test code = 2028-9) 24 22-29 [facility] Campuserum or plasma anion pbr2327-38-67 05:00:00* Test Item Value Reference Range Interpretation Comments Anion Gap (test code = 03148-9) 20.3 8-16 [facility] Campuserum or plasma urea nitrogen measurement (mass/volume)2020-01-31 05:00:00* Test Item Value Reference Range Interpretation Comments Blood Urea Nitrogen (test code = 3094-0) 43 7-26 [facility] Campuserum or plasma creatinine measurement (mass/volume)2020-01-31 05:00:00* Test Item Value Reference Range Interpretation Comments Creatinine (test code = 2160-0) 6.76 0.57-1.11 [facility] Campuserum or plasma urea nitrogen/creatinine mass ztpvz3043-43-97 05:00:00* Test Item Value Reference Range Interpretation Comments BUN/Creatinine Ratio (test code = 3097-3) 6 6-25 [facility] FallsEstimated glomerular filtration rate (GFR) txvpkhimjujzb4007-79-77 05:00:00* Test Item Value Reference Range Interpretation Comments Estimat Glomerular Filtration Rate (test code = 727376230) 6 >60 Ranges were taken from the National Kidney Disease Education Program and the [facility] literature.Reference ranges:60 or greater: Oaneru95-36 ( for 3 consecutive months): Chronic kidney disease 15 or less: Kidney failureBaylor Scott & [facility] FallsGlucose yorkxnvecvs2427-24-69 05:00:00* Test Item Value Reference Range Interpretation Comments Glucose Level (test code = TIQ0710) 165 74-118 [facility] Campuserum or plasma calcium measurement (mass/volume)2020-01-31 05:00:00* Test Item Value Reference Range Interpretation Comments Calcium Level (test code = 92125-4) 7.5 8.4-10.2 [facility] SoutheastCapillary blood glucose measurement by glucometer (mass/volume)2020-01-30 20:33:00* Test Item Value Reference Range Interpretation Comments Bedside Glucose (test code = 82717-0) 101 70-120 Meter ID: [id number] [facility] SoutheastUS PELVIS COMPLETE NON WV1758-91-13 18:08:00 [facility] [address] [address] Patient Name: TAY HERNANDEZ MR #: [id number] : 1950 Age/Sex: 69/F Req #: [id number] Adm Physician: CHAYO ZAYAS MD Ordered by: CHAYO ZAYAS MD Report #: [id number] Location: [facility] Room/Bed: [place] [address] Procedure: [id number] US/US PELVIS COM PLETE NON OB Exam [...] Interpretation Comments Magnesium Level (test code = 71426-9) 1.4 1.3-2.1 [facility] Campuserum or plasma creatine kinase measurement (enzymatic activity/volume)2020-01-28 13:15:00* Test Item Value Reference Range Interpretation Comments Creatine Kinase (test code = 2157-6) 26 29-168 [facility] Campuserum or plasma creatine kinase MB measurement (mass/volume)2020-01-28 13:15:00* Test Item Value Reference Range Interpretation Comments Creatine Kinase MB (test code = 29167-8) 2.20 0-5.0 [facility] FallsTroponin I measurement by highly sensitive enzyme epozfcpdrjq1917-30-15 13:15:00* Test Item Value Reference Range Interpretation Comments Troponin I (test code = 39455-0) 0.221 0-0.300 [facility] FallsUrine color nggpacjgsnkmn9778-08-25 07:40:00* Test Item Value Reference Range Interpretation Comments Urine Color (test code = 5778-6) STRAW YELLOW [facility] FallsUrine zvgvace7294-38-52 07:40:00* Test Item Value Reference Range Interpretation Comments Urine Clarity (test code = 29771-8) CLEAR CLEAR [facility] Campuspecific gravity of Urine by Test strip 2020-01-28 07:40:00* Test Item Value Reference Range Interpretation Comments Urine Specific [place] (test code = 5811-5) 1.020 1.010-1.02 5 [facility] FallsUrine pH measurement by automated test wugbz6806-45-36 07:40:00* Test Item Value Reference Range Interpretation Comments Urine pH (test code = 58157-8) 7.5 5-7 [facility] FallsUrine leukocyte esterase detection by xgnjaxub4704-18-67 07:40:00* Test Item Value Reference Range Interpretation Comments Urine Leukocyte Esterase (test code = 5799-2) NEGATIVE NEGATIVE [facility] FallsUrine nitrite kvdkhhlii6828-24-01 07:40:00* Test Item Value Reference Range Interpretation Comments Urine Nitrite (test code = 49494-1) NEGATIVE NEGATIVE [facility] FallsUrine protein measurement by test strip (mass/volume)2020-01-28 07:40:00* Test Item Value Reference Range Interpretation Comments Urine Protein (test code = 5804-0) 1+ NEGATIVE [facility] FallsUrine glucose mucjqkjdt9802-69-16 07:40:00* Test Item Value Reference Range Interpretation Comments Urine Glucose (UA) (test code = 2349-9) 2+ NEGATIVE [facility] FallsUrine ketones detection by automated test grdmi7776-99-29 07:40:00* Test Item Value Reference Range Interpretation Comments Urine Ketones (test code = 97806-1) NEGATIVE NEGATIVE [facility] FallsUrine urobilinogen measurement by test strip (mass/volume)2020-01-28 07:40:00* Test Item Value Reference Range Interpretation Comments Urine Urobilinogen (test code = 87472-0) 0.2 0.2-1 [facility] FallsUrine total bilirubin measurement (mass/volume)2020-01-28 07:40:00* Test Item Value Reference Range Interpretation Comments Urine Bilirubin (test code = 1978-6) NEGATIVE NEGATIVE [facility] FallsUrine erythrocytes tevnzxflp9186-51-77 07:40:00* Test Item Value Reference Range Interpretation Comments Urine Blood (test code = 24436-8) TRACE NEGATIVE [facility] FallsAutomated urine sediment leukocyte count by microscopy (number/high power field)2020-01-28 07:40:00* Test Item Value Reference Range Interpretation Comments Urine WBC (test code = 5821-4) 6-10 0-5 [facility] FallsErythrocytes detection in urine sediment by light rtcynxidcv5614-79-15 07:40:00* Test Item Value Reference Range Interpretation Comments Urine RBC (test code = 39734-1) 04-03 0-5 [facility] FallsBacteria detection in urine sediment by light kvmcrmmxly5375-37-52 07:40:00* Test Item Value Reference Range Interpretation Comments Urine Bacteria (test code = 19731-6) FEW NONE [facility] FallsEpithelial cells detection in urine sediment by light nixrtccxnm1803-61-44 07:40:00* Test Item Value Reference Range Interpretation Comments Urine Epithelial Cells (test code = 75092-7) NONE NONE [facility] Campuspecimen source identification of body clvjv4615-96-28 07:40:00* Test Item Value Reference Range Interpretation Comments Body Fluid Type (test code = 87431-9) PERITONEAL [facility] FallsEvaluation of color of body fluid 2020-01-28 07:40:00* Test Item Value Reference Range Interpretation Comments Body Fluid Color (test code = 6824-7) STRAW [facility] FallsDetermination of appearance of body fluid 2020-01-28 07:40:00* Test Item Value Reference Range Interpretation Comments Body Fluid Appearance (test code = 9335-1) CLEAR [facility] body fluid leukocytes count (number/volume)2020-01-28 07:40:00* Test Item Value Reference Range Interpretation Comments Body Fluid WBC (test code = 6743-9) 4 --- 01/28/20 0845 ---BF WBC previously reported as: 4 cells/uL [facility] body fluid erythrocytes count (number/volume) 2020-01-28 07:40:00* Test Item Value Reference Range Interpretation Comments Body Fluid RBC (test code = 6741-3) 10 --- 01/28/20 0845 ---BF RBC previously reported as: 10 cells/uL [facility] body fluid neutrophils/100 pnrgyxserp7329-55-98 07:40:00* Test Item Value Reference Range Interpretation Comments Body Fluid Neutrophils (test code = 71319-5) 1 [facility] FallsBody fluid lymphocyte aoyud8631-41-34 07:40:00* Test Item Value Reference Range Interpretation Comments Body Fluid Lymphocytes (test code = 59481541) 61 [facility] FallsBody fluid monocyte pdexr3057-63-33 07:40:00* Test Item Value Reference Range Interpretation Comments Body Fluid Monocytes (test code = 42663-7) 38 [facility] FallsTotal cell ppmvh2298-89-00 07:40:00* Test Item Value Reference Range Interpretation Comments Body Fluid Total Cells Counted (test code = 30616-0) 100 [facility] FallsFluoroscopic procedure less than one hour rkuhfszk5910-64-98 07:40:00* Test Item Value Reference Range Interpretation Comments Body Fluid Comment (test code = Body Fluid Comment) See Comment RARE MESOTHEIAL CELLS OBSERVEDB[facility] [place] Fluoroscopic procedure less than one hour tfrqcpag6062-58-02 07:40:00* Test Item Value Reference Range Interpretation Comments Body Fluid Comment (test code = Body Fluid Comment) See Comment RARE MESOTHEIAL CELLS OBSERVEDB[facility] [place] [place] Fluoroscopic procedure less than one hour eeqgqyqi7095-04-78 07:40:00* Test Item Value Reference Range Interpretation Comments Body Fluid Comment (test code = Body Fluid Comment) See Comment RARE MESOTHEIAL CELLS OBSERVEDB[facility] [place] [place] Fluoroscopic procedure less than one hour qahquhua0159-97-27 04:30:00* Test Item Value Reference Range Interpretation Comments Hemoglobin A1c Percent (test code = Hemoglobin A1c Percent) 6.6 4.0-7.0 [facility] Campuserum or plasma total bilirubin measurement (mass/volume)2020-01-28 04:30:00* Test Item Value Reference Range Interpretation Comments Total Bilirubin (test code = 1975-2) 0.4 0.2-1.2 [facility] FallsFluoroscopic procedure less than one hour rligeeej5077-76-12 04:30:00* Test Item Value Reference Range Interpretation Comments Aspartate Amino Transf (AST/SGOT) (test code = Aspartate Amino Transf (AST/SGOT)) 9 5-34 [facility] Campuserum or plasma alanine aminotransferase measurement (enzymatic activity/volume)2020-01-28 04:30:00* Test Item Value Reference Range Interpretation Comments Alanine Aminotransferase (ALT/SGPT) (test code = 1742-6) 9 0-55 [facility] Campuserum or plasma protein measurement (mass/volume)2020-01-28 04:30:00* Test Item Value Reference Range Interpretation Comments Total Protein (test code = 2885-2) 5.0 6.5-8.1 [facility] Campuserum or plasma albumin measurement (mass/volume)2020-01-28 04:30:00* Test Item Value Reference Range Interpretation Comments Albumin (test code = 1751-7) 2.2 3.5-5.0 [facility] FallsPlasma globulin measurement (mass/volume) 2020-01-28 04:30:00* Test Item Value Reference Range Interpretation Comments Globulin (test code = 29137-7) 2.8 2.3-3.5 [facility] Campuserum or plasma albumin/globulin mass habvx0992-57-60 04:30:00* Test Item Value Reference Range Interpretation Comments Albumin/Globulin Ratio (test code = 1759-0) 0.8 0.8-2.0 [facility] Campuserum or plasma alkaline phosphatase measurement (enzymatic activity/volume)2020-01-28 04:30:00* Test Item Value Reference Range Interpretation Comments Alkaline Phosphatase (test code = 6768-6) 89 40-150 [facility] Campuserum or plasma triglyceride measurement (mass/volume)2020-01-28 04:30:00* Test Item Value Reference Range Interpretation Comments Triglycerides Level (test code = 2571-8) 120 0-149 [facility] Campuserum or plasma cholesterol measurement (mass/volume)2020-01-28 04:30:00* Test Item Value Reference Range Interpretation Comments Cholesterol Level (test code = 2093-3) 77 0-199 Less than 200 mg/dL Low Zfkc670 - 239 mg/dL Borderline Pzkj280 m g/dl and greater High Risk [facility] Campuserum or plasma cholesterol in LDL measurement (mass/volume) 2020-01-28 04:30:00* Test Item Value Reference Range Interpretation Comments LDL Cholesterol (test code = 2089-1) 36 60-130 [facility] Campuserum or plasma cholesterol in HDL measurement (mass/volume)2020-01-28 04:30:00* Test Item Value Reference Range Interpretation Comments HDL Cholesterol (test code = 2085-9) 17 40-60 [facility] Campuserum or plasma total cholesterol/cholesterol in HDL mass abwkt7963-85-19 04:30:00* Test Item Value Reference Range Interpretation Comments Cholesterol/HDL Ratio (test code = 9830-1) 4.5 3.0-3.6 [facility] FallsFluoroscopic procedure less than one hour wjnevjxx0811-21-56 04:30:00* Test Item Value Reference Range Interpretation Comments Hemoglobin A1c Percent (test code = Hemoglobin A1c Percent) 6.6 4.0-7.0 [facility] Campuserum or plasma triglyceride measurement (mass/volume)2020-01-28 04:30:00* Test Item Value Reference Range Interpretation Comments Triglycerides Level (test code = 2571-8) 120 0-149 [facility] Campuserum or plasma cholesterol measurement (mass/volume)2020-01-28 04:30:00* Test Item Value Reference Range Interpretation Comments Cholesterol Level (test code = 2093-3) 77 0-199 Less than 200 mg/dL Low Chnb911 - 239 mg/dL Borderline Dpoj263 m g/dl and greater High Risk [facility] Campuserum or plasma cholesterol in LDL measurement (mass/volume) 2020-01-28 04:30:00* Test Item Value Reference Range Interpretation Comments LDL Cholesterol (test code = 2089-1) 36 60-130 [facility] Campuserum or plasma cholesterol in HDL measurement (mass/volume)2020-01-28 04:30:00* Test Item Value Reference Range Interpretation Comments HDL Cholesterol (test code = 2085-9) 17 40-60 [facility] Campuserum or plasma total cholesterol/cholesterol in HDL mass eaugh7649-36-73 04:30:00* Test Item Value Reference Range Interpretation Comments Cholesterol/HDL Ratio (test code = 9830-1) 4.5 3.0-3.6 [facility] FallsFluoroscopic procedure less than one hour jqjxskim6406-99-18 04:30:00* Test Item Value Reference Range Interpretation Comments Hemoglobin A1c Percent (test code = Hemoglobin A1c Percent) 6.6 4.0-7.0 [facility] Campuserum or plasma triglyceride measurement (mass/volume)2020-01-28 04:30:00* Test Item Value Reference Range Interpretation Comments Triglycerides Level (test code = 2571-8) 120 0-149 [facility] Campuserum or plasma cholesterol measurement (mass/volume)2020-01-28 04:30:00* Test Item Value Reference Range Interpretation Comments Cholesterol Level (test code = 2093-3) 77 0-199 Less than 200 mg/dL Low Ypim692 - 239 mg/dL Borderline Fvrq616 m g/dl and greater High Risk [facility] Campuserum or plasma cholesterol in LDL measurement (mass/volume) 2020-01-28 04:30:00* Test Item Value Reference Range Interpretation Comments LDL Cholesterol (test code = 2089-1) 36 60-130 [facility] Campuserum or plasma cholesterol in HDL measurement (mass/volume)2020-01-28 04:30:00* Test Item Value Reference Range Interpretation Comments HDL Cholesterol (test code = 2085-9) 17 40-60 [facility] Campuserum or plasma total cholesterol/cholesterol in HDL mass kvbzo1820-85-93 04:30:00* Test Item Value Reference Range Interpretation Comments Cholesterol/HDL Ratio (test code = 9830-1) 4.5 3.0-3.6 [facility] FallsCT ABDOMEN/PELVIS EI8302-46-61 16:33:00 [facility] [address] [address] Patient Name: TAY HERNANDEZ MR #: [id number] : 1950 Age/Sex: 69/F Req #: [id number] Adm Physician: CHAYO ZAYAS MD Ordered by: ADAM HERCULES MD Report #: [id number] Location: [facility] Room/Bed: [address] [address] Procedure: [id number] CT/CT ABDOMEN/PE LVIS WO Exam Date: 01/27/20 [...] MD Fluoroscopic procedure less than one hour uynvzgvg3483-47-40 14:00:00* Test Item Value Reference Range Interpretation Comments Lactic Acid Level (test code = Lactic Acid Level) 1.4 0.5- 2.0 [facility] FallsFluoroscopic procedure less than one hour qchpoczb6264-69-16 13:45:00* Test Item Value Reference Range Interpretation [...] collected from individuals suspected of [facility] by [facility]. This test has not been [...] EUA is revoked under 564(g) of the ACT.[facility] SINGLE (PORTABLE)2020-01-27 12:22:00 [facility] [address] [address] Patient Name: TAY HERNANDEZ MR #: [id number] : 1950 Age/Sex: 69/F Req #: [id number] Adm Physician: Ordered by: DINA ALDANA DO Report #: [id number] Location: ER Room/Bed: Procedure: [id number] DX/CHEST SINGLE (PORTABLE) Exam Date: 01/27/20 Exam Time: 1130 REPORT STATUS: Signed TECHNIQUE: Fro ntal view of the chest. INDICATION: ERMD ORDER [id number] 1130 Y COMPARISON: None DISCUSSION: Limited evaluation [...] pH (test code = 2744-1) 7.48 7.35-7.45 [facility] FallspCO2 XdwT4923-74-03 11:47:00* Test Item Value Reference Range Interpretation Comments Arterial Blood Partial Pressure CO2 (test code = 2018-12) 26 35-45 [facility] FallspCO2 AnwK4277-04-41 11:47:00* Test Item Value Reference Range Interpretation Comments Arterial Blood Partial Pressure O2 (test code = 2018-12) 202 80-105 [facility] FallsArterial blood bicarbonate measurement (moles/volume)2020-01-27 11:47:00* Test Item Value Reference Range Interpretation Comments Arterial Blood HCO3 (test code = 1960-4) 19 22-26 [facility] FallsArterial cord blood carbon dioxide, total measurement by calculation (moles/volume)2020-01-27 11:47:00* Test Item Value Reference Range Interpretation Comments Arterial Blood Total CO2 (test code = 77268-7) 20 [facility] FallsArterial blood base excess by calculation 2020-01-27 11:47:00* Test Item Value Reference Range Interpretation Comments Arterial Blood Base Excess (test code = 1925-7) -4.0 -2-3 [facility] FallsArterial blood oxygen saturation ucfdetcebhe2669-91-79 11:47:00* Test Item Value Reference Range Interpretation Comments Arterial Blood Oxygen Saturation (test code = 2708-6) 100.0 95-98 [facility] FallsFluoroscopic procedure less than one hour chwqzlcv9879-78-09 11:47:00* Test Item Value Reference Range Interpretation Comments FiO2 (test code = FiO2) 32 LAUREL FROM RIGHT BRACHIAL PT ON 3L NC [facility] Arterial blood pH jqdackrxbrm5720-94-32 11:47:00* Test Item Value Reference Range Interpretation Comments Arterial Blood pH (test code = 2744-1) 7.48 7.35-7.45 [facility] FallspCO2 PdzH9894-77-21 11:47:00* Test Item Value Reference Range Interpretation Comments Arterial Blood Partial Pressure CO2 (test code = 2018-) 26 35-45 [facility] FallspCO2 PfoL7013-63-49 11:47:00* Test Item Value Reference Range Interpretation Comments Arterial Blood Partial Pressure O2 (test code = 2018-) 202 80-105 [facility] FallsArterial blood bicarbonate measurement (moles/volume)2020-01-27 11:47:00* Test Item Value Reference Range Interpretation Comments Arterial Blood HCO3 (test code = 1960-4) 19 22-26 [facility] FallsArterial cord blood carbon dioxide, total measurement by calculation (moles/volume)2020-01-27 11:47:00* Test Item Value Reference Range Interpretation Comments Arterial Blood Total CO2 (test code = 92341-2) 20 [facility] FallsArterial blood base excess by calculation 2020-01-27 11:47:00* Test Item Value Reference Range Interpretation Comments Arterial Blood Base Excess (test code = 1925-7) -4.0 -2-3 [facility]ter[facility] blood oxygen saturation pmthnefjvto7682-93-92 11:47:00* Test Item Value Reference Range Interpretation Comments Arterial Blood Oxygen Saturation (test code = 2708-6) 100.0 95-98 [facility] FallsFluoroscopic procedure less than one hour ryclxvga9603-58-77 11:47:00* Test Item Value Reference Range Interpretation Comments FiO2 (test code = FiO2) 32 LAUREL FROM RIGHT BRACHIAL PT ON 3L NC [facility] Arterial blood pH xwqpkxwsphs4489-27-95 11:47:00* Test Item Value Reference Range Interpretation Comments Arterial Blood pH (test code = 2744-1) 7.48 7.35-7.45 [facility] FallspCO2 [id number] 11:47:00* Test Item Value Reference Range Interpretation Comments Arterial Blood Partial Pressure CO2 (test code = 2018-) 26 35-45 [facility] FallspCO2 SgiU5896-40-40 11:47:00* Test Item Value Reference Range Interpretation Comments Arterial Blood Partial Pressure O2 (test code = 2019-) 202 80-105 [facility] FallsArterial blood bicarbonate measurement (moles/volume)2020-01-27 11:47:00* Test Item Value Reference Range Interpretation Comments Arterial Blood HCO3 (test code = 1960-4) 19 22-26 [facility] FallsArterial cord blood carbon dioxide, total measurement by calculation (moles/volume)2020-01-27 11:47:00* Test Item Value Reference Range Interpretation Comments Arterial Blood Total CO2 (test code = 49565-5) 20 [facility] FallsAr[facility]ial blood base excess by calculation 2020-01-27 11:47:00* Test Item Value Reference Range Interpretation Comments Arterial Blood Base Excess (test code = 1925-7) -4.0 -2-3 [facility] FallsArterial blood oxygen saturation wupbpdaxkky9898-66-04 11:47:00* Test Item Value Reference Range Interpretation Comments Arterial Blood Oxygen Saturation (test code = 2708-6) 100.0 95-98 [facility] FallsFluoroscopic procedure less than one hour ifojjlag2946-85-95 11:47:00* Test Item Value Reference Range Interpretation Comments FiO2 (test code = FiO2) 32 LAUREL FROM RIGHT BRACHIAL PT ON 3L NC [facility] Blood ngbpqwt3643-49-96 11:37:00* Test Item Value Reference Range Interpretation Comments Blood Culture (test code = 70057054) NO GROWTH AFTER 72 HOURS [facility] FallsProthrombin time (PT) in platelet poor plasma by coagulation ppzaz0521-53-95 11:27:00* Test Item Value Reference Range Interpretation Comments Prothrombin Time (test code = 5902-2) 16.9 11.9-14.5 [facility] FallsINR in Platelet poor plasma by Coagulation tgmqb6444-27-78 11:27:00* Test Item Value Reference Range Interpretation Comments Prothromb Time International Ratio (test code = 6301-6) 1.31 Oral Anticoagulant Therapy INR Values:1. Low Intensity Therapy 1.5 - 2.02 . Moderate Intensity Therapy 2.0 - 3.03. High Intensity Therapy(1) 2.5 - 3. 54. High Intensity Therapy(2) 3.0 - 4.05. Panic Value INR > 5.0 [facility]2020-09-14 11:27:00* Test Item Value Reference Range Interpretation Comments B-Type Natriuretic Peptide (test code = 52160-8) 217.7 0-100 [facility] Campuserum or plasma lipase measurement (enzymatic activity/volume)2020-01-27 11:27:00* Test Item Value Reference Range Interpretation Comments Lipase (test code = 3040-3) 116 8-78 [facility]2020-09-14 11:27:00* Test Item Value Reference Range Interpretation Comments B-Type Natriuretic Peptide (test code = 32302-7) 217.7 0-100 [facility] Campuserum or plasma lipase measurement (enzymatic activity/volume)2020-01-27 11:27:00* Test Item Value Reference Range Interpretation Comments Lipase (test code = 3040-3) 116 8-78 [facility]2020-09-14 11:27:00* Test Item Value Reference Range Interpretation Comments B-Type Natriuretic Peptide (test code = 09245-3) 217.7 0-100 [facility] Campuserum or plasma lipase measurement (enzymatic activity/volume)2020-01-27 11:27:00* Test Item Value Reference Range Interpretation Comments Lipase (test code = 3040-3) 116 8-78 [facility] FallsBASIC METABOLIC [id number] 15:25:00 * Test Item Value Reference Range [...] code = CA) 6.6 mg/dL 8.5-10.1 L [id number]-[id number] 15:25:00* Test Item Value Reference Range Interpretation Comments TROPONIN-I (test code = TROPI) 0.025 ng/mL 0-0.045 N HEPATIC FUNCTION [id number] 15:25:00* Test Item Value Reference Range Interpretation [...] reference range due to change in reagent. [id number] 15:25:00* Test Item Value Reference Range Interpretation Comments LIPASE (test code = LIP) 252 U/L 73.0-393.0 N BASIC METABOLIC [id number] 15:18:00* Test Item Value Reference Range Interpretation [...] CALCIUM (test code = CA) mg/dL 8.5-10.1 QDKQTCRQ-R1749-35-17 15:18:00* Test Item Value Reference Range Interpretation Comments TROPONIN-I (test code = TROPI) ng/mL 0-0.045 PROTHROMBIN [id number] 15:18:00* Test Item Value Reference Range Interpretation [...] (2.5-3.5) IS PATIENT ON ANTICOAGULANTS? NTHROMBOPLASTIN TIME [id number] 15:18:00* Test Item Value Reference Range Interpretation Comments THROMBOPLASTIN TIME PARTIAL (test code = PTT) 26.6 seconds 23.0-37. 0 N IS PATIENT ON ANTICOAGULANTS? NCBC W/O [id number] 15:11:00* Test Item Value Reference Range Interpretation [...] MPV) 8.9 fL 6.7-11.0 N CBC W/O [id number] 15:10:00* Test Item Value Reference Range Interpretation [...] MPV) fL 6.7-11.0 - XR CHEST 1 [id number] 14:46:00 FAX: Grady Richey NP [phone] [place]: St: REG Name: TAY CORMIER [facility] : [birth year] Age/S: 69/F [address] Unit #: [id number] Loc: [place], [place] [address] Phys: Grady Richey NP Acct: [id number] Dis Date: Status: REG ER PHONE #: [phone] Exam Date: 12/30/2019 1431 FAX #: [phone] Reason: CHEST PAIN EXAMS: CPT CODE: [id number] XR CHEST 1 V 40276 REASON FOR EXAM: CHEST PAIN Exam Order [...] unchanged. IMPRESSION: No acute cardiopulmonary process. Location: [facility] Enma ctronically Signed by Scar Velazquez M.D. on 12/30/2019 at 7766 Reported and signed by: Scar Velazquez M.D. CC: Grady Richey NP Technologist: Tami Madrigal RT(R) Trnscrd Date/Time/By: 12/30/2019 (0381) : By: [email or web address] Orig Print D/T: S: 12/30/2019 (2285) PAGE 1 Signed Report Hepatitis B surface Ab, arzaajagnlrk5990-99-86 12:43:52* Test Item Value Reference Range Interpretation [...] Interval: anti-HBs 9.99 IU/L or less ....... Comojgst49.00 IU/L or greater .... PositiveResults greater than 1,000.00 IU/L are reported as greater than 1,000.00 IU/L. This assay should not be used for blood donor screening, associated re-entry protocols, or for screening Human Cell, Tissues and Cellular and Tissue-Based Products (HCT/P).Performed by [facility],[address] [place] [id number] cxt.Organically Maid, Mikael Matias MD, Lab. Director [facility] 12 ejry0710-45-72 15:35:20* Test Item Value Reference Range Interpretation Comments Ventricular rate (test code = 253) 101 Atrial rate (test code = 255) 101 CA interval (test code = 266) 166 QRSD [...] abnormality-No previous ECGs available- 3:3 5:19 PM [facility] MethodistPO nmrrrni3888-11-77 11:09:07* Test Item Value Reference Range Interpretation Comments POC glucose (test code = 48499-0) 207 mg/dL 65-100 H [employer] Consultant Name: Sue Sotomayor ID: [id number] Lab Interpretation (test code = 00522-4) Abnormal [facility] MethodistBasic metabolic vowlk8247-55-18 06:45:03* Test Item Value Reference Range Interpretation Comments Sodium (test code = 2951-2) 135 135- 150 mEq/L Potassium (test code = 2823-3) 3.6 3.5- 5.0 mEq/L Chloride (test code = 2075-0) 93 98- 112 mEq/L L CO2 (test code = 2027-9) 25 mmol/L 24-31 Anion gap (test code = 55076-1) 17@ANIO 7- 15 mEq/L H BUN (test code = 3094-0) 36 mg/dL 7-18 H Creatinine (test code = 2160-0) 6.40 mg/dL 0.5-0.9 H Glucose (test code = 2345-7) 217 mg/dL 65-100 H Calcium (test code = 77410-7) 7.6 mg/dL 8.8-10.2 L Lab Interpretation (test code = 59049-7) Abnormal [facility] MethodistEstimated [id number] 06:45:02* Test Item Value Reference Range Interpretation Comments Estimated GFR (test code = 5488) 6 mL/min/1.73 m2 A Catergory Units InterpretationG1 >=90 Normal or highG2 60-89 Mildly kjcfoknmiY1y 45-59 Mildly to moderately oeuaoknulV8x 30-44 Moderately to severely decreasedG4 15-29 Severely decreasedG5 <15 Kidney failureThe eGFR was calculated using the Chronic Kidney Disease Epidemiology Collaboration (CKD-EPI) equation. Interpretation is based on recommendations of the National Kidney Foundation-Kidney Disease Outcomes Quality Initiative (NKF-KDOQI) published in 2014. Lab Interpretation (test code = 10372-2) Abnormal [facility] with platelet and lkuqheejevvj1721-94-48 06:27:02* Test Item Value Reference Range Interpretation Comments WBC (test code = 50656-0) 7.1 4.2- 11.0 k/uL RBC (test code = 95592-9) 3.04 m/uL 4.04-5.86 L HGB (test code = 718-7) 9.1 g/dL 11.5-15.3 L HCT (test code = 4544-3) 28.3 % 34-45 L MCV (test code = 787-2) 93.1 fL 80-98 MCH (test code = 785-6) 29.9 pg 27-34 MCHC (test code = 786-4) 32.2 g/dL 31.5-36.5 RDW - SD (test code = 73556-5) 48.3 fL 37-51 MPV (test code = 28958-8) 8.2 fL 7.4-10.4 Platelet count (test code = 06162-2) 376 150- 400 k/uL Nucleated RBC (test code = 19231-3) 0.00 /100 WBC Neutrophils (test code = 21217-0) 64.6 % 36-66 Lymphocytes (test code = 59723-1) 23.6 % 24-44 L Monocytes (test code = 07068-3) 6.6 % 0-6 H Eosinophils (test code = 75626-7) 3.9 % 0-6 Basophils (test code = 87864-0) 1.0 % 0-1.2 Immature granulocytes (test code = 54278-4) 0.3 % 0-1 Lab Interpretation (test code = 24155-3) Abnormal [place] ParkMlklvbperThcxetme6804-84-36 02:53:12* Test Item Value Reference Range Interpretation Comments Troponin (test code = 37046-9) 0.020 ng/mL 0-0.04 In patients suspected of having a myocardial infarction, along with all other appropriate clinical measures and actions including ECG and other diagnostics as appropriate, measure Ultra TnI at 0 hrs and at 3 hrs.Myocardial infarction VERY LIKELYThe 0 hr TnI level is > 0.10 ng/mL Ttuu cardial infarction LIKELYThe 0 hr TnI level is > 0.04 ng/mL and 3 hr level is increased or decreased by at least 0.020 ng/mL Myocardi al infarction VERY UNLIKELYBoth the 0 hr and 3 hr TnI levels <= 0.04 ng/mL(within normal limits) OR 0 hr is > 0.04 ng/mL and 3 hr is increased OR decreased by less than 0.020 ng/mL [facility] MethodistHepatitis B surface bazekoz2065-69-46 23:54:28* Test Item Value Reference Range Interpretation Comments Hepatitis B surface Ag (test code = 5195-3) Non-reactive Non-reacti ve [facility] MethodistB natriuretic mdlrzbm7264-43-44 21:26:12* Test Item Value Reference Range Interpretation Comments BNP (test code = 35372-2) 97 pg/mL 0-100 [facility] MethodistComprehensive metabolic atfpw6466-97-07 21:17:33* Test Item Value Reference Range Interpretation Comments Sodium (test code = 2951-2) 135 135- 150 mEq/L Potassium (test code = 2823-3) 3.2 3.5- 5.0 mEq/L L Chloride (test code = 2075-0) 92 98- 112 mEq/L L CO2 (test code = 8-9) 24 mmol/L 24-31 Anion gap (test code = 43869-9) 19@ANIO 7- 15 mEq/L H BUN (test code = 3094-0) 37 mg/dL 7-18 H Creatinine (test code = 2160-0) 6.60 mg/dL 0.5-0.9 H Glucose (test code = 2345-7) 95 mg/dL 65-100 Calcium (test code = 30228-2) 7.6 mg/dL 8.8-10.2 L Protein (test code [...] mg/dL 0.2-1.2 Lab Interpretation (test code = 03475-3) Abnormal [facility] MethodistLipid geeuh2862-43-85 21:17:32* Test Item Value Reference Range Interpretation Comments Cholesterol (test code = 2093-3) 80 mg/dL 0-199 Triglycerides (test code = 2571-8) 87 mg/dL 0-149 HDL cholesterol (test code = 2085-9) 26 mg/dL 40-9999 L LDL cholesterol (test code = 2089-1) 41 mg/dL 0-99 Result obtained by direct LDL measurement Lipid panel interpretation (test code = 16659-2) See below Total Cholesterol (mg/dL) LDL Cholesterol [...] (>=200 mg/dL) Lab Interpretation (test code = 49706-4) Abnormal [place] MethodistProthrombin time with KAJ6295-10-06 21:11:19* Test Item Value Reference Range Interpretation Comments Prothrombin time (test code = 5902-2) 14.8 11.5- 14.5 sec H INR (test code = 39725-7) 1.16 Fo r patients on anticoagulant therapy, reference ranges below:Indication: INR ValueTreatment of Venous Thrombosis, 2.0-3.0pulmonary emboli, or prophylaxisof a venous thrombosis, or systemic emboli.High dose, high risk patients 3.0-4.5with mechanical valves.NOTE: INR values over 3.0 are sometimes associated withgastrointestinal hemorrhage, especially values over 4.0. Lab Interpretation (test code = 60426-7) Abnormal [facility] MethodistCT Head Wo Wvaxlass5657-22-68 20:54:39Hm Interface, Radiology Results 08/28/2019 8:57 PM [...] intracranial abn ormality. Chronic findings as detailed above.[facility]-[id number] BASIC METABOLIC KZKRP6140-59-35 12:14:00* Test Item Value Reference Range Interpretation [...] code = CA) 7.8 mg/dL 8.0-10.5 L UFICHAHZ-Q3159-39-15 12:14:00* Test Item Value Reference Range Interpretation Comments TROPONIN-I (test code = TROPI) <0.015 ng/mL 0.00-0.056 N CBC W/O [id number] 11:51:00* Test Item Value Reference Range Interpretation [...] = MPV) 8.4 fL 6.7-11.0 N Urea Nitrogen/Zzqwpckeqw5107-04-63 07:25:00* Test Item Value Reference Range Interpretation Comments Urea Nitrogen (test code = 87069969) 54.0 mg/dL 7-25 H Creatinine (test code = 15045534) 5.1 mg/dL 0.6-1.2 H GFR, Estimated (test code = 04832440) 8 >=90 mL/min/1.73 m2 L Lab Interpretation (test code = 91653-3) Abnormal [facility] Center[facility], Kjmpjuq8328-34-20 07:25:00* Test Item Value Reference Range Interpretation Comments Glucose, Fasting (test code = 10499550) 336 mg/dL 74-106 H Reference Range: Two or more of the venous plasma concentrations must be met or exceeded for a positive diagnosis. Non- Fasting 105 mg/dL 95 mg/dL 1 hr 190 mg/dL 180 mg/dL 2 hr 165 mg/dL 155 mg/dL 3 hr 145 mg/dL 140 mg/dL Lab Interpretation (test code = 68896-9) Abnormal [facility] CenterLipid Qezkzwt8408-03-54 07:25:00* Test Item Value Reference Range Interpretation Comments Cholesterol (test code = 2093-3) 123.0 mg/dL <=200.0 Triglyceride (test code = 32529558) 186 mg/dL <150 H HDL (test code = 2085-9) 40.0 mg/dL See Reference Range Narrative . LDL (test code = 09520-6) 46 mg/dL <100 Op timal: < 100.0 mg/dLNear Optimal: 120-129 mg/dLBorderline: 130-159 mg/dLHigh: 160-189 mg/dLVery High: >=190 mg/dL Patient Fasting? (test code = 20367417) No SHAWN (test code = SHAWN) Patient is not fasting. For a triglyceride result greater than 440 mg/dL, consider re-testing when the patient is in a fasting state. Lab Interpretation (test code = 85140-4) Abnormal [facility] CenterLiver Unvnyry3051-94-99 07:25:00* Test Item Value Reference Range Interpretation Comments Bilirubin, Total (test code = 2885-2) 0.5 mg/dL 0.2-1.2 Alkaline Phosphatase (test code = 66729872) 281 U/L 34-104 H AST (test code = 56324214) 11 U/L 13-39 L Direct Bilirubin (test code = 1968-7) 0.1 mg/dL 0-0.2 ALT (test code = 44995606) 27 U/L 7-52 Albumin (test code = 47059-2) 3.1 g/dL 3.7-5.3 L Lab Interpretation (test code = 41648-6) Abnormal [facility] CenterYvxxmjEcztdxnmryep5837-51-99 07:25:00* Test Item Value Reference Range Interpretation Comments Sodium (test code = 2951-2) 133 mmol/L 136-145 L Potassium (test code = 2823-3) 3.2 mmol/L 3.5-5.1 L Chloride (test code = 2075-0) 93 mmol/L 98-107 L CO2 (test code = 47518517) 25 mmol/L 21-31 Anion Gap (test code = 85745286) 15 mmol/L 5-16 Lab Interpretation (test code = 03361-3) Abnormal [facility] CenterHemoglobin [id number] 19:37:00* Test Item Value Reference Range Interpretation Comments Hemoglobin A1c (test code = 4548-4) 10.4 % 4.3-6.1 H Estimated Average Glucose (test code = 40327322) 252 mg/dL 70-11 0 H Lab Interpretation (test code = 04478-4) Abnormal [facility] CenterCBC (without differential)2019-07-22 16:56:00* Test Item Value [...] 33.8 g/dL 32-36 RDW (test code = 15043-6) 48.4 fL 36.4-46.3 H Platelet (test code = 777-3) 350 K/uL 150-400 Mean Platelet Volume (test code = 49075-9) 9.2 fL 9.4-12.4 L Percent NRBC (test code = 49786370) 0.0 % Lab Interpretation (test code = 47568-1) Abnormal [facility] CenterURINALYSIS, UTJECVMHDKL8630-87-81 13:32:00* Test Item Value Reference Range Interpretation Comments RBC (test code = 19414080) 11-21 0- 4 /HPF A WBC (test code = 17695516) 5-20 0- 5 /HPF A Mucous (test code = 57247475) Present None seen /HPF A Epithelial Cell (test code = 28158553) 1/HPF <1 /HPF A Bacteria (test code = 72095511) Moderate None seen /HPF A Granular Cast (test code = 91472097) 0-1 None seen /LPF Lab Interpretation (test code = 92321-2) Abnormal [place] TqlieiVhwnlqfnok9158-59-40 13:23:00* Test Item Value Reference Range Interpretation Comments Color (test code = 18880389) Yellow Colorless, Straw, Yellow Clarity (test code = 57586651) Clear Clear Spec [place], Ur (test code = 5811-5) 1.025 1.005-1.035 pH, Ur (test code = 5803-2) 5.5 5.0-8.0 Protein, Ur (test code = 15441-1) 2+ Negative mg/dL A Glucose, Ur (test code = 37779-9) 1+ Negative A Ketone, Ur (test code = 2514-8) Negative Negative Bilirubin, Ur (test code = 5770-3) Negative Negative Nitrite, Ur (test code = 5802-4) Negative Negative Urobilinogen, Ur (test code = 96139-1) <1.0 <1.0 EU/dL Leukocyte (test code = 09920585) 1+ Negative A Blood, Ur (test code = 34271887) 1+ Negative A Lab Interpretation (test code = 67288-5) Abnormal [facility] FOOT [id number] 08:20:00Moises Jung MD 02/25/2019 11:27 AMDiabetic Foot Exam was performed at 02/25/2019 10:33 AM. Right foot sensation is normal, right foot pulses are normal, right foot appearance is normal. Left foot sensation is normal, left foot pulses are normal, left foot appearance is normal. [facility] METABOLIC PANEL 2018-09-16 03:54:00* Test Item [...] code = CA) 7.7 mg/dL 8.5-10.1 L WMFMEOOL-J6307-37-05 03:49:00* Test Item Value Reference Range Interpretation Comments TROPONIN-I (test code = TROPI) <0.015 ng/mL 0-0.045 N COMMENTS TO ICE DELIVERY DRIVER: COLLECT 3 HOURS AFTER PREVIOUS SAMPLECBC W/AUTO SXCL1860-18-59 03:43:00* Test Item Value Reference Range Interpretation [...] code = NRBC#) 0.00 K/mm3 0.0-0.1 N WVXJUQGM-H0407-85-04 23:03:00* Test Item Value Reference Range Interpretation Comments TROPONIN-I (test code = TROPI) <0.015 ng/mL 0-0.045 N COMMENTS TO ICE DELIVERY DRIVER: COLLECT 3 HOURS AFTER PREVIOUS UQTSCAMXMENN5042-88-54 20:29:00* Test Item Value Reference Range Interpretation Comments GLUBED (test code = GLUBED) 146 mg/dL 74-106 H Performed by certified dividing machine operator at [facility] - CT HEAD/BRAIN W/O RXTV9566-21-10 14:25:00 Name: TAY HERNANDEZ [facility] : 1950 Age/S: 68 / F [address] Unit #: [id number] Loc: [place] [address] Phys: CHU ZAPATA MD Acct: [id number] Dis Date: Status: ADM IN PHONE #: [phone] Exam Date: 09/15/2018 1347 FAX #: [phone] Reason: change in vision EXAMS: CPT CODE: [id number] CT HEAD/BRAIN W/O CONT 31449 EXAM: CT of the head without contrast; [...] (1425) Marlene Orig Print D/T: S: 09/15/2018 (5383) CTDI: DLP: PAGE 1 Signed Report BASIC METABOLIC [id number] 13:46:00* Test Item Value Reference Range Interpretation [...] CA) 8.4 mg/dL 8.5-10.1 L HEPATIC FUNCTION [id number] 13:46:00* Test Item Value Reference Range Interpretation [...] reference range due to change in reagent. [id number] 13:46:00* Test Item Value Reference Range Interpretation Comments MAGNESIUM (test code = MAG) 2.2 mg/dL 1.8-2.4 N THYROID STIMULATING ISMGPVZ5660-36-86 13:46:00* Test Item Value Reference Range Interpretation Comments THYROID STIMULATING HORMONE (test code = TSH) 0.316 uIU/mL 0.36-3.7 4 L TSH REFERENCE RANGES: EUTHYROID: 0.35 - 4.3 mIU/mL HYPO : > 5.5 mIU/mL HYPER : < 0.35 mIU/mL [id number]-[id number] 13:40:00* Test Item Value Reference Range Interpretation Comments TROPONIN-I (test code = TROPI) <0.015 ng/mL 0-0.045 N BASIC METABOLIC TSTKS8896-06-08 13:34:00* Test Item Value Reference Range Interpretation [...] code = CA) mg/dL 8.5-10.1 HEPATIC FUNCTION [id number] 13:34:00* Test Item Value Reference Range Interpretation [...] TOTAL (test code = ALKP) IUnit/L 45-117 LIQYXQKGC2213-43-89 13:34:00* Test Item Value Reference Range Interpretation Comments MAGNESIUM (test code = MAG) mg/dL 1.8-2.4 THYROID STIMULATING SXNFLHD4841-31-94 13:34:00* Test Item Value Reference Range Interpretation Comments THYROID STIMULATING HORMONE (test code = TSH) uIU/mL 0.36-3.7 4 BASIC METABOLIC [id number] 13:32:00* Test Item Value Reference Range Interpretation [...] code = CA) mg/dL 8.5-10.1 HEPATIC FUNCTION [id number] 13:32:00* Test Item Value Reference Range Interpretation [...] TOTAL (test code = ALKP) IUnit/L 45-117 AIFHXRNZA9330-52-60 13:32:00* Test Item Value Reference Range Interpretation Comments MAGNESIUM (test code = MAG) mg/dL 1.8-2.4 THYROID STIMULATING PJSNAOD9752-95-75 13:32:00* Test Item Value Reference Range Interpretation Comments THYROID STIMULATING HORMONE (test code = TSH) uIU/mL 0.36-3.7 4 PROTHROMBIN [id number] 13:17:00* Test Item Value Reference Range Interpretation [...] (2.5-3.5) IS PATIENT ON ANTICOAGULANTS? NTHROMBOPLASTIN TIME [id number] 13:17:00* Test Item Value Reference Range Interpretation Comments THROMBOPLASTIN TIME PARTIAL (test code = PTT) 30.3 seconds 25.0-36. 5 N IS PATIENT ON ANTICOAGULANTS? NCBC W/O [id number] 13:09:00* Test Item Value Reference Range Interpretation [...] fL 6.7-11.0 N - XR CHEST 1 [id number] 11:53:00 FAX: CHU ZAPATA MD [place]: B St: REG Name: Colten [facility] : [birth year] Age/S: 68/F [address] y Unit #: [id number] Loc: [place] [address] Phys: CHU ZAPATA MD Acct: [id number] Dis Date: Status: REG ER PHONE #: [phone] Exam Date: 09/15/2018 1148 FAX #: [phone] Reason: CHEST PAIN EXAMS: CPT CODE: [id number] XR CHEST 1 V 66014 EXAM: Chest x-ray, one view; INFORMATION: Chest [...] Technologist: Joe Briseno RT(R) Trnscrd Date/Time/By: 09/15/2018 (9080) : By: EbenezerGRW Orig Print D/T: S: 09/15/2018 (8120) PAGE 1 Signed Report [id number] 16:07:00* Test Item Value Reference Range Interpretation Comments GLUBED (test code = GLUBED) 148 mg/dL 74-106 H Performed by certified dividing machine operator at [facility] [id number] 08:13:00* Test Item Value Reference Range Interpretation Comments GLUBED (test code = GLUBED) 77 mg/dL 74-106 N Performed by certified dividing machine operator at [facility] BASIC METABOLIC [id number] 07:00:00* Test Item Value Reference Range Interpretation [...] CA) 8.1 mg/dL 8.5-10.1 L BASIC METABOLIC [id number] 06:43:00* Test Item Value Reference Range Interpretation [...] code = CA) 8.1 mg/dL 8.5-10.1 L [id number] 21:12:00* Test Item Value Reference Range Interpretation Comments GLUBED (test code = GLUBED) 99 mg/dL 74-106 N Performed by certified dividing machine operator at [facility] [id number] 16:02:00* Test Item Value Reference Range Interpretation Comments GLUBED (test code = GLUBED) 140 mg/dL 74-106 H Performed by certified dividing machine operator at [facility] [id number] 13:23:00* Test Item Value Reference Range Interpretation Comments GLUBED (test code = GLUBED) 118 mg/dL 74-106 H Performed by certified dividing machine operator at [facility] HEPATITIS B CORE ANTIBODY,[id number] 09:16:00* Test Item Value Reference Range Interpretation Comments HEPATITIS B CORE ANTIBODY,TOT (test code = HBCAB) NEGATIVE NEGA TIVE BASIC METABOLIC [id number] 09:06:00* Test Item Value Reference Range Interpretation [...] CA) 7.8 mg/dL 8.5-10.1 L CBC W/AUTO [id number] 08:43:00* Test Item Value Reference Range Interpretation [...] DIFF REQUIRED (test code = MDIFF) NO [id number] 07:59:00* Test Item Value Reference Range Interpretation Comments GLUBED (test code = GLUBED) 83 mg/dL 74-106 N Performed by certified dividing machine operator at [facility] [id number] 20:50:00* Test Item Value Reference Range Interpretation Comments GLUBED (test code = GLUBED) 143 mg/dL 74-106 H Performed by certified dividing machine operator at [facility] [id number] 16:19:00* Test Item Value Reference Range Interpretation Comments GLUBED (test code = GLUBED) 110 mg/dL 74-106 H Performed by certified dividing machine operator at [facility] [id number] 11:33:00* Test Item Value Reference Range Interpretation Comments GLUBED (test code = GLUBED) 253 mg/dL 74-106 H Performed by certified dividing machine operator at [facility] [id number] 07:49:00* Test Item Value Reference Range Interpretation Comments GLUBED (test code = GLUBED) 109 mg/dL 74-106 H Performed by certified dividing machine operator at [facility] COMPREHENSIVE METABOLIC [id number] 07:25:00* Test Item Value Reference Range Interpretation [...] due to change in reagent. COMPREHENSIVE METABOLIC [id number] 07:22:00* Test Item Value Reference Range Interpretation [...] code = ALKP) IUnit/L 45-117 CBC W/AUTO [id number] 06:47:00* Test Item Value Reference Range Interpretation [...] DIFF REQUIRED (test code = MDIFF) NO [id number] 05:49:00* Test Item Value Reference Range Interpretation Comments GLUBED (test code = GLUBED) 81 mg/dL 74-106 N Performed by certified dividing machine operator at [facility] [id number] 16:52:00* Test Item Value Reference Range Interpretation Comments GLUBED (test code = GLUBED) 113 mg/dL 74-106 H Performed by certified dividing machine operator at [facility] [id number] 12:30:00* Test Item Value Reference Range Interpretation Comments GLUBED (test code = GLUBED) 219 mg/dL 74-106 H Performed by certified dividing machine operator at [facility] [id number] 09:03:00* Test Item Value Reference Range Interpretation Comments GLUBED (test code = GLUBED) 236 mg/dL 74-106 H Performed by certified dividing machine operator at [facility] [id number] 09:03:00* Test Item Value Reference Range Interpretation Comments GLUBED (test code = GLUBED) 58 mg/dL 74-106 L Performed by certified dividing machine operator at [facility] [id number] 07:39:00* Test Item Value Reference Range Interpretation Comments GLUBED (test code = GLUBED) 50 mg/dL 74-106 L Performed by certified dividing machine operator at [facility] BASIC METABOLIC [id number] 06:42:00* Test Item Value Reference Range Interpretation [...] CA) 8.3 mg/dL 8.5-10.1 L BASIC METABOLIC [id number] 05:51:00* Test Item Value Reference Range Interpretation [...] CALCIUM (test code = CA) mg/dL 8.5-10.1 [id number] 17:11:00* Test Item Value Reference Range Interpretation Comments GLUBED (test code = GLUBED) 214 mg/dL 74-106 H Performed by certified dividing machine operator at [facility] [id number] 08:36:00* Test Item Value Reference Range Interpretation Comments GLUBED (test code = GLUBED) 151 mg/dL 74-106 H Performed by certified dividing machine operator at [facility] BASIC METABOLIC [id number] 06:52:00* Test Item Value Reference Range Interpretation [...] 36 mg/dL 74-106 Re sults called to [id number] by [email or web address] 09/07/18 0650Critical results verified and [...] code = CA) 7.7 mg/dL 8.5-10.1 L [id number] 06:52:00* Test Item Value Reference Range Interpretation Comments PHOSPHORUS (test code = PHOS) 4.1 mg/dL 2.5-4.9 N [id number] 06:52:00* Test Item Value Reference Range Interpretation Comments MAGNESIUM (test code = MAG) 1.8 mg/dL 1.8-2.4 N BASIC METABOLIC [id number] 06:26:00* Test Item Value Reference Range Interpretation [...] CALCIUM (test code = CA) mg/dL 8.5-10.1 [id number] 06:26:00* Test Item Value Reference Range Interpretation Comments PHOSPHORUS (test code = PHOS) mg/dL 2.5-4.9 [id number] 06:26:00* Test Item Value Reference Range Interpretation Comments MAGNESIUM (test code = MAG) mg/dL 1.8-2.4 CBC W/O [id number] 06:10:00* Test Item Value Reference Range Interpretation [...] code = MPV) 9.8 fL 6.7-11.0 N [id number] 22:35:00* Test Item Value Reference Range Interpretation Comments GLUBED (test code = GLUBED) 77 mg/dL 74-106 N Performed by certified dividing machine operator at [facility] [id number] 16:53:00* Test Item Value Reference Range Interpretation Comments GLUBED (test code = GLUBED) 127 mg/dL 74-106 H Performed by certified dividing machine operator at [facility] [id number] 11:28:00* Test Item Value Reference Range Interpretation Comments GLUBED (test code = GLUBED) 87 mg/dL 74-106 N Performed by certified dividing machine operator at [facility] [id number] 10:11:00* Test Item Value Reference Range Interpretation Comments GLUBED (test code = GLUBED) 140 mg/dL 74-106 H Performed by certified dividing machine operator at [facility] [id number] 08:30:00* Test Item Value Reference Range Interpretation Comments GLUBED (test code = GLUBED) 35 mg/dL 74-106 LL Test performed as P.O.C. by nursing staff.[facility] certified dividing machine [facility]~ BASIC METABOLIC [id number] 07:20:00* Test Item Value Reference Range Interpretation [...] 39 mg/dL 74-106 Re sults called to [place] [address] by V.LAB.AG1 09/06/18 0720Critical results verified and [...] CA) 7.8 mg/dL 8.5-10.1 L BASIC METABOLIC [id number] 05:32:00* Test Item Value Reference Range Interpretation [...] = CA) mg/dL 8.5-10.1 AB HEPATITIS B [id number] 05:12:00* Test Item Value Reference Range Interpretation Comments AB HEPATITIS B SURFACE (test code = HBSAB) Non Reactive () Non Reactive: Inconsistent with immunity, less than 10 mIU/mL Reactive: Consistent with immunity, greater than 9.9 mIU/mL [id number] 20:49:00* Test Item Value Reference Range Interpretation Comments GLUBED (test code = GLUBED) 35 mg/dL 74-106 LL Test performed as P.O.C. by nursing staff.[facility] certified dividing machine [facility]~ [id number] 16:17:00* Test Item Value Reference Range Interpretation Comments GLUBED (test code = GLUBED) 216 mg/dL 74-106 H Performed by certified dividing machine operator at [facility] BASIC METABOLIC [id number] 08:09:00* Test Item Value Reference Range Interpretation [...] CA) 8.7 mg/dL 8.5-10.1 N BASIC METABOLIC [id number] 07:57:00* Test Item Value Reference Range Interpretation [...] code = CA) mg/dL 8.5-10.1 CBC W/O [id number] 07:39:00* Test Item Value Reference Range Interpretation [...] code = MPV) 10.5 fL 6.7-11.0 N [id number] 21:03:00* Test Item Value Reference Range Interpretation Comments GLUBED (test code = GLUBED) 167 mg/dL 74-106 H Performed by certified dividing machine operator at [facility] [id number] 16:41:00* Test Item Value Reference Range Interpretation Comments GLUBED (test code = GLUBED) 202 mg/dL 74-106 H Performed by certified dividing machine operator at [facility] [id number] 12:47:00* Test Item Value Reference Range Interpretation Comments GLUBED (test code = GLUBED) 97 mg/dL 74-106 N Performed by certified dividing machine operator at [facility] [id number] 10:44:00* Test Item Value Reference Range Interpretation Comments GLUBED (test code = GLUBED) 92 mg/dL 74-106 N Performed by certified dividing machine operator at [facility] - [place] GUIDANCE VAS [id number] 09:55:00 Name: TAY HERNANDEZ [facility] : 1950 Age/S: 68 / F [address] Unit #: [id number] Loc: [place] [address] Phys: Damian Lewis MD Acct: [id number] Dis Date: Status: ADM IN PHONE #: [phone] Exam Date: 08/31/2018 09 FAX #: [phone] Reason: EXAMS: CPT CODE: [id number] [place] GUIDANCE [facility] ACCESS 55299 Fluoro Time: 18 DAP (Gy m2): 2231 [...] monitored by a trained registered nurse. Physician tsoa-vx-tcpo sedation time was 15 minutes. Benefits and [...] rformed followed by insertion of a 15 Cymraes peel-away sheath. A sub cutaneous tunnel was then created in the usual sterile fashion and a 14.5 Cymraes tunneled hemodialysis catheter was inserted and positioned [...] Signed Report (DALI NUTRACY) Name: TAY HERNANDEZ [facility] SP : 1950 Age/S: 68 / F [address] Unit #: [id number] Loc: [place] [address] Phys: Damian Walton MD Acct: [id number] Dis Date: Status: ADM IN PHON E #: [phone] Exam Date: 08/31/2018 0935 FAX #: Reason: EXAMS: CPT CODE: [id number] GUIDAN CE VASC ACCESS 86140 Fluoro Time: 18 DAP (Gy m2): 2231 Air Kerma (mGy): 4.49 <Continued> at 0955 Reported and signed by: Damian Lewis M.D. CC: Jose Atnonio Nelson MD; Dayo Valadez MD Technologist: [facility] Date/Time: 09/04/2018 (09) Marlene Orig Print D/T: S: 09/04/2018 (0958) PAGE 2 Signed Report - SP FLUORO GUID CTRL ACC [id number] 09:55:00 Name: TAY HERNANDEZ [facility] SP : 1950 Age/S: 68 / F [address] Unit #: [id number] Loc: [place] [address] Phys: Damian Lewis MD Acct: [id number] Dis Date: Status: ADM IN PHONE #: [phone] Exam Date: 08/31/2018 0935 FAX #: [phone] Reason: EXAMS: CPT CODE: [id number] SP FLUORO GUID CTRL ACC DEV 34121 Fluoro Time: DAP (Gy m2): Air Kerma [...] monitored by a trained registered nurse. Physician pjfd-wi-jxrr sedation time was 15 minutes. Benefits and [...] rformed followed by insertion of a 15 Cymraes peel-away sheath. A sub cutaneous tunnel was then created in the usual sterile fashion and a 14.5 Cymraes tunneled hemodialysis catheter was inserted and positioned [...] Signed Report (DALI NUTRACY) Name: TAY HERNANDEZ [facility] : 1950 Age/S: 68 / F [address] Unit #: [id number] Loc: [place] [address] Phys: Damian Walton MD Acct: [id number] Dis Date: Status: ADM IN PHON E #: [phone] Exam Date: 08/31/2018 0935 FAX #: Reason: EXAMS: CPT CODE: [id number] SP FLUORO GUID CTRL ACC DEV 96329 Fluoro Time: DAP (Gy m2): Air Kerma (mGy): <Continued> at 0955 Reported and signed by: Damian Lewis M.D. CC: Jose Antonio Nelson MD; Dayo Valadez MD Technologist: Andrea Quick [facility] Date/Time: 09/04/2018 (954) Marlene Orig Print D/T: S: 09/04/2018 (67) PAGE 2 Signed Report GLUBED 2018-09-04 09:06:00* Test Item Value Reference Range Interpretation Comments GLUBED (test code = GLUBED) 74 mg/dL 74-106 N Performed by certified dividing machine operator at [facility] BASIC METABOLIC [id number] 07:46:00* Test Item Value Reference Range Interpretation [...] mg/dL 74-106 LL Re sults called to [id number] by V.LAB.ARDEN 09/04/18 0746Critical results verified and [...] CA) 8.2 mg/dL 8.5-10.1 L BASIC METABOLIC [id number] 06:56:00* Test Item Value Reference Range Interpretation [...] CALCIUM (test code = CA) mg/dL 8.5-10.1 [id number] 00:14:00* Test Item Value Reference Range Interpretation Comments GLUBED (test code = GLUBED) 61 mg/dL 74-106 L Performed by certified dividing machine operator at [facility] [id number] 17:17:00* Test Item Value Reference Range Interpretation Comments GLUBED (test code = GLUBED) 107 mg/dL 74-106 H Performed by certified dividing machine operator at [facility] [id number] 12:08:00* Test Item Value Reference Range Interpretation Comments GLUBED (test code = GLUBED) 128 mg/dL 74-106 H Performed by certified dividing machine operator at [facility] CBC W/AUTO [id number] 09:08:00* Test Item Value Reference Range Interpretation [...] (test code = MDIFF) NO BASIC METABOLIC [id number] 07:44:00* Test Item Value Reference Range Interpretation [...] = CA) 8.5 mg/dL 8.5-10.1 N CALCIUM [id number] 07:44:00* Test Item Value Reference Range Interpretation Comments CALCIUM IONIZED (test code = MAG) 1.16 mmol/L 1.12-1.32 N BASIC METABOLIC [id number] 07:26:00* Test Item Value Reference Range Interpretation [...] (test code = CA) mg/dL 8.5-10.1 CALCIUM [id number] 07:26:00* Test Item Value Reference Range Interpretation Comments CALCIUM IONIZED (test code = MAG) 1.16 mmol/L 1.12-1.32 N BASIC METABOLIC [id number] 07:14:00* Test Item Value Reference Range Interpretation [...] (test code = CA) mg/dL 8.5-10.1 CALCIUM [id number] 07:14:00* Test Item Value Reference Range Interpretation Comments CALCIUM IONIZED (test code = MAG) 1.16 mmol/L 1.12-1.32 N [id number] 21:07:00* Test Item Value Reference Range Interpretation Comments GLUBED (test code = GLUBED) 138 mg/dL 74-106 H Performed by certified dividing machine operator at [facility] [id number] 16:51:00* Test Item Value Reference Range Interpretation Comments GLUBED (test code = GLUBED) 121 mg/dL 74-106 H Performed by certified dividing machine operator at [facility] [id number] 12:18:00* Test Item Value Reference Range Interpretation Comments GLUBED (test code = GLUBED) 181 mg/dL 74-106 H Performed by certified dividing machine operator at [facility] [id number] 08:21:00* Test Item Value Reference Range Interpretation Comments GLUBED (test code = GLUBED) 86 mg/dL 74-106 N Performed by certified dividing machine operator at [facility] [id number] 06:19:00* Test Item Value Reference Range Interpretation Comments GLUBED (test code = GLUBED) 80 mg/dL 74-106 N Performed by certified dividing machine operator at [facility] [id number] 20:43:00* Test Item Value Reference Range Interpretation Comments GLUBED (test code = GLUBED) 102 mg/dL 74-106 N Performed by certified dividing machine operator at [facility] [id number] 20:43:00* Test Item Value Reference Range Interpretation Comments GLUBED (test code = GLUBED) 64 mg/dL 74-106 L Performed by certified dividing machine operator at [facility] [id number] 15:23:00* Test Item Value Reference Range Interpretation Comments GLUBED (test code = GLUBED) 185 mg/dL 74-106 H Performed by certified dividing machine operator at [facility] [id number] 15:05:00* Test Item Value Reference Range Interpretation Comments GLUBED (test code = GLUBED) 103 mg/dL 74-106 N Performed by certified dividing machine operator at [facility] BASIC METABOLIC [id number] 05:42:00* Test Item Value Reference Range Interpretation [...] CA) 7.9 mg/dL 8.5-10.1 L CBC W/O [id number] 04:46:00* Test Item Value Reference Range Interpretation [...] code = MPV) 9.7 fL 6.7-11.0 N [id number] 20:26:00* Test Item Value Reference Range Interpretation Comments GLUBED (test code = GLUBED) 146 mg/dL 74-106 H Performed by certified dividing machine operator at [facility] [id number] 17:56:00* Test Item Value Reference Range Interpretation Comments GLUBED (test code = GLUBED) 128 mg/dL 74-106 H Performed by certified dividing machine operator at [facility] [id number] 12:40:00* Test Item Value Reference Range Interpretation Comments GLUBED (test code = GLUBED) 186 mg/dL 74-106 H Performed by certified dividing machine operator at [facility] - XR CHEST 1 [id number] 10:06:00 FAX: Jose Antonio Stephens MD [phone] [place]: B St: [facility] FAX: Dayo Valadez MD [phone] Name: HERNANDEZTAY [facility] : 1950 Age/S: 68/F [address] Unit #: [id number] Loc: V.3031 [place] [address] Phys: Damian Lewis MD Acct: [id number] Dis Date: Status: ADM IN PHONE #: [phone] Exam Date: 08/31/2018 0947 FAX #: [phone] Reason: HD CATH EXAMS: CPT CODE: [id number] XR CHEST 1 V 30767 HISTORY: HD catheter placement. COMPARISON: September 15, [...] 08/31/2018 (1009) PAGE 1 Signed Re port [id number] 08:44:00* Test Item Value Reference Range Interpretation Comments GLUBED (test code = GLUBED) 105 mg/dL 74-106 N Performed by certified dividing machine operator at [facility] BASIC METABOLIC [id number] 05:52:00* Test Item Value Reference Range Interpretation [...] code = CA) 8.4 mg/dL 8.5-10.1 L [id number] 05:52:00* Test Item Value Reference Range Interpretation Comments PHOSPHORUS (test code = PHOS) 4.4 mg/dL 2.5-4.9 N [id number] 05:52:00* Test Item Value Reference Range Interpretation Comments MAGNESIUM (test code = MAG) 2.1 mg/dL 1.8-2.4 N BASIC METABOLIC [id number] 05:50:00* Test Item Value Reference Range Interpretation [...] code = CA) 8.4 mg/dL 8.5-10.1 L [id number] 05:50:00* Test Item Value Reference Range Interpretation Comments PHOSPHORUS (test code = PHOS) mg/dL 2.5-4.9 [id number] 05:50:00* Test Item Value Reference Range Interpretation Comments MAGNESIUM (test code = MAG) mg/dL 1.8-2.4 CBC W/O [id number] 05:39:00* Test Item Value Reference Range Interpretation [...] code = MPV) 9.8 fL 6.7-11.0 N [id number] 00:30:00* Test Item Value Reference Range Interpretation Comments GLUBED (test code = GLUBED) 180 mg/dL 74-106 H Performed by certified dividing machine operator at [facility] PROTHROMBIN [id number] 18:53:00* Test Item Value Reference Range Interpretation [...] (2.5-3.5) IS PATIENT ON ANTICOAGULANTS? NTHROMBOPLASTIN TIME [id number] 18:53:00* Test Item Value Reference Range Interpretation Comments THROMBOPLASTIN TIME PARTIAL (test code = PTT) 29.8 seconds 25.0-36. 5 N IS PATIENT ON ANTICOAGULANTS? [id number] 17:41:00* Test Item Value Reference Range Interpretation Comments GLUBED (test code = GLUBED) 103 mg/dL 74-106 N Performed by certified dividing machine operator at [facility] [id number] 17:41:00* Test Item Value Reference Range Interpretation Comments GLUBED (test code = GLUBED) 132 mg/dL 74-106 H Performed by certified dividing machine operator at [facility] AG HEPAT B [id number] 16:41:00* Test Item Value Reference Range Interpretation Comments AG HEPAT B SURF (test code = HBSAG) Nonreactive Index Nonreactive [id number] 08:57:00* Test Item Value Reference Range Interpretation Comments GLUBED (test code = GLUBED) 76 mg/dL 74-106 N Performed by certified dividing machine operator at [facility] BASIC METABOLIC [id number] 06:09:00* Test Item Value Reference Range Interpretation [...] code = CA) 8.2 mg/dL 8.5-10.1 L [id number] 06:09:00* Test Item Value Reference Range Interpretation Comments PHOSPHORUS (test code = PHOS) 4.3 mg/dL 2.5-4.9 N [id number] 06:09:00* Test Item Value Reference Range Interpretation Comments MAGNESIUM (test code = MAG) 2.1 mg/dL 1.8-2.4 N CBC W/O [id number] 05:47:00* Test Item Value Reference Range Interpretation [...] code = MPV) 10.0 fL 6.7-11.0 N [id number] 23:10:00* Test Item Value Reference Range Interpretation Comments GLUBED (test code = GLUBED) 84 mg/dL 74-106 N Performed by certified dividing machine operator at [facility] [id number] 22:13:00* Test Item Value Reference Range Interpretation Comments AMYLASE (test code = ALEC) 92 Unit/L 25-115 N SPECIMEN COMMENTS: add onSPECIMEN COMMENTS: add on [id number] 22:13:00* Test Item Value Reference Range Interpretation Comments LIPASE (test code = LIP) 355 U/L 73.0-393.0 N SPECIMEN COMMENTS: add onSPECIMEN COMMENTS: add on [id number] 21:50:00* Test Item Value Reference Range Interpretation Comments GLUBED (test code = GLUBED) 54 mg/dL 74-106 L Performed by certified dividing machine operator at [facility] COMPREHENSIVE METABOLIC [id number] 19:18:00* Test Item Value Reference Range Interpretation [...] range due to change in reagent. PROTHROMBIN [id number] 17:45:00* Test Item Value Reference Range Interpretation [...] (2.5-3.5) IS PATIENT ON ANTICOAGULANTS? NCBC W/AUTO [id number] 17:27:00* Test Item Value Reference Range Interpretation [...] DIFF REQUIRED (test code = MDIFF) NO [id number] 17:14:00* Test Item Value Reference Range Interpretation Comments GLUBED (test code = GLUBED) 242 mg/dL 74-106 H Performed by certified dividing machine operator at [facility] CHEM [id number] 10:17:0010[facility] [id number] 10:17:008.5 [facility] HermannCHEM [id number] 10:17:0023[facility]annCHEM PANEL 2018-08-25 10:17:0014.0[facility]annCHEM [id number] 10:17:50645Pyzjykgh HermannCHEM [id number] 10:17:0066[facility]annCHEM [id number] 10:17:004.0[facility]annCHEM [id number] 10:17:20329Dgpeqblv HermannCHEM [id number] 10:17:004.49[facility]annCHEM [id number] 10:17:61183 [facility] RbopeypXFOXLLZJBUNP3543-25-13 20:15:84426Kpkafvii HermannELECTROLYTES 2018-08-24 20:15:008.3[facility] EyuaugfCAQPSTJLUIKY4360-79-97 20:15:0012.0 [facility] KytciqtHPMXJNWLEIBJ1653-23-06 20:15:0023[facility] HermannELECTROLYTES 2018-08-24 20:15:009[facility] EyvnkhaAKGCSAGJNOCM9393-27-72 20:15:63617Rhouinlt BnosdneGYRNFIPVONXU0641-97-21 20:15:004.67[facility] YjgtfoxLWLWZXIGGXGL7746-73-27 20:15:69148Oquwiabx HlcdabxLYUDFATFOIVF2864-41-10 20:15:0070[facility] ZPMXBKKBIIKM8963-54-16 20:15:004.0[facility]ann[facility]INE AND [id number] 05:15:001[facility] AND [id number] 05:15:001[facility] URINE AND [id number] 05:15:00Negative (08/24/18 12:15 AM)[facility] URINE AND [id number] 05:15:00Negative *NA*(08/24/18 12:15 AM)[facility] [id number] 05:15:00* Test Item Value Reference Range Interpretation Comments UA pH (test code = UA pH) 5.0 1 5.0-8.0 [facility] [id number] 05:15:00* Test Item Value Reference Range Interpretation Comments UA Spec Grav (test code = UA Spec Grav) 1.012 1 [facility] [id number] 05:15:00Negative (08/24/18 12:15 AM) [facility] [id number] 05:15:00Negative (08/24/18 12:15 AM) [facility] [id number] 05:15:00Negative *NA*(08/24/18 12:15 AM)[facility] [id number] 05:15:00Slight *ABN*(08/24/18 12:15 AM)[facility] [id number] 05:15:00Yellow *NA*(08/24/18 12:15 AM)[facility]annCHEM [id number] 03:22:30579Nfntgjtc HermannCHEM PANEL 2018-08-24 03:22:008[facility]annCHEM [id number] 03:22:000.5[facility]annCHEM [id number] 03:22:0018[facility]annCHEM [id number] 03:22:26642Rtnhubwl HermannCHEM [id number] 03:22:60490Sgakcone HermannCHEM QWENJ4208-43-02 03:22:0072[facility]annCHEM [id number] 03:22:004.1 [facility]annCHE[facility] [id number] 03:22:82030Rvajqvfo HermannCHEM PANEL 2018-08-24 03:22:005.01[facility]annCHEM [id number] 03:22:59086Eyhzxpjv HermannCHEM MPKLT6767-55-50 03:22:0026[facility]annCHEM [id number] 03:22:003.6[facility]annCHEM GVEBH7248-46-09 03:22:0022[facility]annCHEM ODXJR9420-31-97 03:22:009.0[facility]annCHEM HUXCS3529-38-12 03:22:007.9 [facility]annCHE[facility] [id number] 03:22:00* Test Item Value Reference Range Interpretation Comments B/C Ratio (test code = B/C Ratio) 14 1 6-25 [facility]annCHEM [id number] 03:22:0012.1[facility]annCHEM PANEL 2018-08-24 03:22:004.3[facility] HermannCHEM [id number] 03:22:00* Test Item Value Reference Range Interpretation Comments A/G Ratio (test code = A/G Ratio) 0.8 1 0.7-1.6 [facility] LursxdjDNGYJGDGAZ4760-89-79 03:22:008.2[facility]MATOLOGY 2018-08-24 03:22:14773Voecogax GkkogzwUSVZRBOXPL4305-04-03 03:22:0033.6[facility] IetuirpQTSPZJCONS3179-35-08 03:22:00* Test Item Value Reference Range Interpretation Comments MCH (test code = MCH) 29.9 pg 27.0-31.0 [facility] CsjufppKGXJRAUIZM8846-02-47 03:22:0092.8[facility]annHEMATOLOGY 2018-08-24 03:22:0014.8[facility] KszfgkaECIDYBWOTT6763-16-56 03:22:0032.2[facility] KtyxtakGMAPEKDCCS0163-79-71 03:22:0010.8[facility] QecxpjlCRAOCGAODV1707-10-73 03:22:003.63[facility] GqgmlksEQBTIZRXQB0902-68-61 03:22:007.0[facility] JTDDHVUFJC6293-72-86 03:22:000.5[facility] IyugjrcUWFHCRYDGM8078-36-42 03:22:002.5 [facility] IdmrfneZGMVSRPEOR5423-19-27 03:22:0084.0[facility]annHEMATOLOGY 2018-08-24 03:22:0012.0[facility] JpmphndUXTHAAVBZB2277-46-96 03:22:000.1[facility] IuckizpVRGGCUPIYZ3041-92-23 03:22:000.2[facility] PsvlfqsIGYCCBUPLF0790-49-14 03:22:000.8[facility] BwlbimbWSZLDUGQXY7960-14-13 03:22:005.9[facility] BFCRSBKNCS8944-06-47 03:22:001.0[facility] HermannU/S, ABDOMINAL, COMPLETE 2018 11:50:00Reason for [...] MDReport Verified Date/Time: 2018 11:50:33 Reading Location: [address] Ultrasound Reading Room Enma ctronically signed by: CAMILLA NEGRON M.D. on 2018 11:50 AM HEMOGLOBIN [id number] 11:31:00* Test Item Value Reference Range Interpretation Comments HEMOGLOBIN A1C (BEAKER) (test code = 368) 7.1 % 4.3-6.1 H OCCULT BLOOD, [id number] 10:39:00* Test Item Value Reference Range Interpretation Comments FECAL OCCULT BLOOD (BEAKER) (test code = 618) Negative Negative OCCULT BLOOD, GHCGK4339-30-03 10:39:00* Test Item Value Reference Range Interpretation Comments FECAL OCCULT BLOOD (BEAKER) (test code = 618) Negative Negative LIPID USCXP5066-90-66 10:19:00* Test Item Value Reference Range Interpretation [...] 130-159 High 160-189 Very High >=190 PROTHROMBIN TIME/IRK8431-22-81 09:55:00* Test Item Value Reference Range Interpretation [...] pat ients with mechanical heart valves.T SPOT [id number] 08:48:00* Test Item Value Reference Range Interpretation Comments T-SPOT TB (BEAKER) (test code = 1683) Negative NEG CONTROL SPOT COUNT (BEAKER) (test code = 1684) 0 PANEL A SPOT (BEAKER) (test code = 1685) 0 PANEL B SPOT (BEAKER) (test code = 1686) [address] (BEAKER) (test code = 1687) 0 SCAN RESULT (test code = 1599759) URINE IEZSQXR5361-86-20 15:02:00* Test Item Value Reference Range Interpretation [...] code = 47) R >100,000 col/mL skin qvmxjJKG9568-06-03 13:51:00* Test Item Value Reference Range Interpretation Comments RPR SCREEN (Kiind.me) (test code = 420) Nonreactive Nonreactive HEMOGLOBIN [id number] 12:45:00* Test Item Value Reference Range Interpretation Comments HEMOGLOBIN A1C (Kiind.me) (test code = 368) 6.8 % 4.3-6.1 H VARICELLA ZOSTER ANTIBODY, [id number] 11:38:00* Test Item Value Reference Range Interpretation Comments VARICELLA ZOSTER IGG (AL) (Kiind.me) (test code = 3197) > VARICELLA ZOSTER RESULT INTERPRETATIONS: <=0.8 Al Nonreactive: Presumed non-immune to VZV 0.9-1.0 Al Equivocal >=1.1 Al Reactive: Presumed immune to VZVCYTOMEGALOVIRUS ANTIBODY, [id number] 11:38:00* Test Item Value Reference Range Interpretation Comments CYTOMEGALOVIRUS, IGG (Kiind.me) (test code = 3429) Positive Negat ric, Equivocal A CMV IgG Result Interpretation: </= 0.8 Al Negative 0.9-1.0 Al Equivocal > /=1.1 Al PositiveCYTOMEGALOVIRUS ANTIBODY, [id number] 11:38:00* Test Item Value Reference Range Interpretation Comments CYTOMEGALOVIRUS IGM ANTIBODY (Kiind.me) (test code = 3437) Neg ative Negative, Equivocal CMV IgM Result Interpretation: </= 0.8 Al Negative 0.9-1.0 Al Equivocal > /= 1.1 Al PositiveEBV ANTIBODY, [id number] 11:38:00* Test Item Value Reference Range Interpretation Comments MAKENZIE JAMES VIRAL CAPSID ANTIGEN IGG (Kiind.me) (test code = 3415) Positive Negative, Equivocal A Makenzie James Viral Capsid Antigen IgG Result Interpretation: </= 0.8 Al Negative 0.9-1.0 Al Equivocal >/= 1.1 Al PositiveEBV ANTIBODY, [id number] 11:38:00* Test Item Value Reference Range Interpretation Comments MAKENZIE JAMES VIRAL CAPSID ANTIGEN IGM (BEAKER) (test code = 3418) Negative Negative, Equivocal Makenzie James Viral Capsid Antigen IgM Result Interpretation: </= 0.8 Al Negative 0.9-1.0 Al Equivocal >/= 1.1 Al PositivePTH, [id number] 10:42:00* Test Item Value Reference Range Interpretation Comments PARATHYROID HORMONE INTACT (BEAKER) (test code = 577) 677.5 pg/mL 8.5-72.5 H HEPATITIS B SURFACE EEYUPWYM2606-90-31 09:49:00* Test Item Value Reference Range Interpretation Comments HEPATITIS B SURFACE ANTIBODY (BEAKER) (test code = 647) < mIU/mL <8.0 COMPREHENSIVE METABOLIC [id number] 09:48:00* Test Item Value Reference Range Interpretation [...] NOT APPLICABLE FOR DIALYSIS PATIENTS. URINALYSIS W/ CGWUCDQRHJZ2246-05-35 09:41:00* Test Item Value Reference Range Interpretation [...] 516) 1 /HPF SOURCE(BEAKER) (test code = 3273) HEPATITIS B SURFACE [id number] 09:41:00* Test Item Value Reference Range Interpretation Comments HEPATITIS B SURFACE ANTIGEN (2) (BEAKER) (test code = 2585) Nonreactive Nonreactive HEPATITIS B CORE ANTIBODY, [id number] 09:41:00* Test Item Value Reference Range Interpretation Comments HEPATITIS B CORE IGM ANTIBODY (BEAKER) (test code = 645) Non reactive Nonreactive HEPATITIS C PTVTQAXG1520-40-69 09:41:00* Test Item Value Reference Range Interpretation Comments HEPATITIS C ANTIBODY (BEAKER) (test code = 367) Nonreactive Nonrea ctive HIV-1 ANTIGEN WITH HIV-1/2 NWZYFEWY4622-03-78 09:41:00* Test Item Value Reference Range Interpretation Comments HIV-1 ANTIGEN WITH HIV 1\\T\\2 ANTIBODY (2) (BEAKER) (te st code = 2586) Nonreactive Nonreactive URIC [id number] 09:22:00* Test Item Value Reference Range Interpretation Comments URIC ACID (BEAKER) (test code = 773) 5.9 mg/dL 2.6-7.2 FRBEVBLLGF2843-44-13 09:22:00* Test Item Value Reference Range Interpretation Comments PHOSPHORUS (BEAKER) (test code = 604) 4.2 mg/dL 2.3-4.7 GAMMA GLUTAMYL TRANSFERASE (GGT)2018-03-28 09:22:00* Test Item Value Reference Range Interpretation Comments GAMMA GLUTAMYL TRANSFERASE (BEAKER) (test code = 364) 61 U/L 9-64 LACTATE DEHYDROGENASE (LDH)2018-03-28 09:22:00* Test Item Value Reference Range Interpretation Comments LACTATE DEHYDROGENASE (BEAKER) (test code = 635) 179 U/L 125-2 20 PT/[id number] 09:01:00* Test Item Value Reference Range Interpretation [...] mechanical heart valves.CBC W/PLT COUNT & AUTO UGNLZGPBERAV5396-77-18 08:54:00* Test Item Value Reference Range Interpretation [...] code = 2801) 0 % 0-1 PARATHYROID TCDOSZP8238-28-53 02:33:000.90[facility]annPARATHYROID PROFILE 2017-07-26 02:33:000.95[facility]annCHEM UGTJQ4419-79-95 21:32:000.07[facility]annCHEM EMIDU4355-16-54 21:32:0014[facility]annCHEM LTFTI3177-39-67 21:32:66590Cofshlnx HermannCHEM WHJAE1254-54-03 21:32:0038[facility]annCHEM JCDSA6801-70-48 21:32:0043[facility]annCHEM ACCSP3114-25-59 21:32:00* Test Item Value Reference Range Interpretation Comments A/G Ratio (test code = A/G Ratio) 0.6 1 0.7-1.6 [facility]annCHEM SLFUL5445-63-29 21:32:002.8[facility]annCHEM PANEL 2017-07-25 21:32:007.5[facility]annCHEM RVMTH8788-71-26 21:32:004.7[facility]annCHEM EHJXQ4897-59-74 21:32:00* Test Item Value Reference Range Interpretation Comments B/C Ratio (test code = B/C Ratio) 9 1 6-25 [facility]annCHEM GERTO9300-69-07 21:32:006.9[facility]annCHEM PANEL 2017-07-25 21:32:000.5[facility]annCHEM MRWTL6563-50-52 21:32:0016.4[facility]annCHEM WSTZG3125-99-58 21:32:0022[facility]annCHEM HFBEK9945-18-74 21:32:54691Oagbwlqo HermannCHEM XDEZK2178-99-50 21:32:003.21[facility]annCHEM ZNKVZ3662-51-33 21:32:0030[facility]annCHEM TGPPH0949-02-59 21:32:004.4 [facility]annCHEM ZWXDG2384-46-01 21:32:49236Gwxjtdia HermannCHEM PANEL 2017-07-25 21:32:72506Wdsnyzzv QhjgpinEFWFTPNRSX3211-85-42 21:32:0085.9[facility] GttwaxgLBWLPUKOQS7398-58-96 21:32:0013.4[facility] YbnjechTVPBEVTZXQ7232-53-26 21:32:007.6[facility] GkihrtzPCOPMDUWFZ7687-14-81 21:32:00* Test Item Value Reference Range Interpretation Comments MCH (test code = MCH) 28.6 pg 27.0-31.0 [facility] CzqvepbZQSGHDECIA2108-12-02 21:32:0033.3[facility]annHEMATOLOGY 2017-07-25 21:32:0010.8[facility] EocbcwnIAKZOQFFYY6004-88-82 21:32:0032.5[facility] ZjnudjxQNLBLMEQZG5214-51-40 21:32:003.78[facility] LhjmynwMBOGXDLLOW4659-14-71 21:32:007.5[facility] PvhtaflXAXABFEPEI6539-78-48 21:32:68738Ggpllphm [facility] VZHHYKMDUE6489-60-57 21:32:000.1[facility] KluxzwiTUERBTXDEB5768-18-45 21:32:000.2 [facility] YhogkiuOYDMYCAQQR8435-53-81 21:32:000.5[facility]annHEMATOLOGY 2017-07-25 21:32:001.5[facility] NtdgecuEIWXZPGRMT0670-45-91 21:32:001.2[facility] TknujwoNDGNIOGZYD7174-04-84 21:32:005.3[facility] UuvxvjeMVSMZGNZHR5669-75-98 21:32:0019.5[facility] OngdounRBNUAKZQWR1020-07-35 21:32:006.1[facility] GHLFTEPRAO0496-47-06 21:32:002.7[facility] IkgavurMFDNWXWACN4965-71-93 21:32:00 70.5[facility] HermannCARDIAC LIJANSK5043-83-40 18:16:001.4[facility] HermannCARDIAC TQUSQTW1957-88-42 18:16:07854Fxqxktjr HermannCARDIAC QJHDJPQ2656-50-36 18:16:00< 0.02[facility]annCARDIAC FMISEAZ0592-10-77 18:16:0058[facility]annCARDIAC PWNNXFL0988-00-81 18:16:000.8[facility] HermannCHEM CEXTX2256-98-57 18:16:0020 [facility]annCHEM VIRSG5838-60-48 18:16:000.8[facility]annCHEM PANEL 2016-10-19 18:16:001.0[facility]annCHEM EZLXV0494-79-00 18:16:003.8[facility] HermannCHEM MDZWA3617-08-75 18:16:0012.1[facility] HermannCHEM LMYKY7422-99-28 18:16:0011[facility]annCHEM AGDBH8101-98-27 18:16:02568Mbongzhk HermannCHEM IQLUB5465-42-76 18:16:009[facility]annCHEM HYPZQ7637-83-99 18:16:003.0 [facility]annCHEM XSHWP8540-56-40 18:16:0015[facility]annCHEM PANEL 2016-10-19 18:16:006.8[facility] HermannCHEM YPRGK5478-29-59 18:16:007.8[facility] HermannCHEM RLDGZ5361-70-91 18:16:0024[facility]annCHEM ECMWJ8313-39-68 18:16:004.1[facility]annCHEM HZFRI3481-37-84 18:16:92789Htvglvzy HermannCHEM GATVG6677-36-93 18:16:11427Zeojyfop HermannCHEM ZGVCE9712-05-90 18:16:002.50 [facility]annCHEM PDTZH9616-76-35 18:16:50826Wdnofdfg HermannCHEM PANEL 2016-10-19 18:16:0027[facility] EljgcvnEBQQHQNDGC6573-89-33 18:16:000.4[facility] YjigeobIAGLVYINGY7916-57-93 18:16:001.7[facility] LienwcbQSWTMVXZVV9913-62-78 18:16:006.2[facility] TtdgrhiFZGTKUEILQ9445-36-09 18:16:000.1[facility] RDIKPQZTYL1611-98-75 18:16:000.3[facility] IsoxndaXKGYOINHPA3331-80-61 18:16:004.9 [facility] DxnolawWOHBWFYBKR4133-72-99 18:16:0019.6[facility]annHEMATOLOGY 2016-10-19 18:16:0071.9[facility] WisxzohZBTZOVFHJD0932-75-71 18:16:000.6[facility] OcmqfrfHBRFFPHHQF6253-60-64 18:16:003.0[facility] NdwluqtQZVPLGOYPI9650-24-77 18:16:003.48[facility] SihthujULLKXQCYAT7053-12-80 18:16:008.6[facility] QFXGMBEZTW7066-80-30 18:16:0087.2[facility] ZjemcdhFGTYYULQDK1200-09-05 18:16:00 30.4[facility] HdwooloNNIZQQMKOG7309-09-43 18:16:0010.1[facility]annHEMATOLOGY 2016-10-19 18:16:006.9[facility] HinxyxoDTRBYRWXLN7060-19-52 18:16:00* Test Item Value Reference Range Interpretation Comments MCH (test code = MCH) 29.0 pg 27.0-31.0 [facility] FafmsazRWOUACCRHU2013-33-43 18:16:0033.3[facility]annHEMATOLOGY 2016-10-19 18:16:96710Rbbxyaij UetppnnXBRQFKQLHP5075-97-68 18:16:0014.1[facility] JnatjgtBTLBJITUAL8809-08-76 18:16:00* Test Item Value Reference Range Interpretation Comments PT (test code = PT) 13.8 s 12.0-14.7 [facility] GswnssxBELBZJFGSZ7454-14-58 18:16:001.04[facility]annHEMATOLOGY 2016-10-19 18:16:00* Test Item Value Reference Range Interpretation Comments PTT (test code = PTT) 31.3 s 22.9-35.8 [facility]annURINE AND KKVXB0969-34-90 18:16:00Large *ABN*(10/19/16 1:16 PM) [facility] PJJUB7790-61-00 18:16:0014[facility]UR[facility] AND BMSYT1104-05-48 18:16:00Negative (10/19/16 1:16 PM)[facility] STOOL 2016-10-19 18:16:00Negative (10/19/16 1:16 PM)[facility] STOOL 2016-10-19 18:16:00>182[facility]UR[facility] AND ZJJKJ5738-52-48 18:16:00Yellow *NA*(10/19/16 1:16 PM)[facility] CBUNO7448-15-35 18:16:005.0 [facility] AND OSFJH2070-33-54 18:16:00Marked *ABN*(10/19/16 1:16 PM) [facility] VQPUG3409-01-97 18:16:001.014[facility] AND CXXWW0320-20-15 18:16:00Negative *NA*(10/19/16 1:16 PM)[facility]annCHEM PANEL 2016-02-18 18:44:0019[facility] HermannCHEM XKWHW5030-05-13 18:44:002.60[facility] HermannCHEM JFPPC2696-56-64 18:44:0023[facility] HermannCHEM ZADOC0799-75-91 18:44:004.4[facility]annCHEM CZVGH7692-69-36 18:44:46793Xilcnymy HermannCHEM AWSQA6752-42-08 18:44:70533Vbmjsiqq HermannCHEM ANFTN4142-16-92 18:44:008.0 [facility]annCHEM ABEUV0826-70-42 18:44:29989Tnbkufyq HermannCHEM PANEL 2016-02-18 18:44:0027[facility]annCHEM AJXTE8868-03-56 18:44:0013.4[facility] ZlasiehVTJQMEBHWT4145-26-41 18:44:004.34[facility] QgfycyyBFDNRQHVWW8377-09-80 18:44:006.9[facility] QzztumdTPFGBORQCF9408-41-94 18:44:0035.6[facility] YVJBJSDDMN2395-80-54 18:44:0012.0[facility] TwczfmbOENXZRPTCR7009-02-10 18:44:00 408[facility] FvhyyrwOPSFFBMZJT7865-60-96 18:44:0014.6[facility]annHEMATOLOGY 2016-02-18 18:44:00* Test Item Value Reference Range Interpretation Comments MCH (test code = MCH) 27.7 pg 27.0-31.0 [facility] ThqdletQHSYOOFUXY7663-48-10 18:44:0033.8[facility]annHEMATOLOGY 2016-02-18 18:44:007.6[facility] TajtxieBFFOVJKREM2148-20-69 18:44:0082.0[facility] YnvjljxRXJJTRQBQN9808-94-06 18:44:004.9[facility] TiowsdqOBZKAQFJNV5485-49-65 18:44:000.1[facility] MfwpkuiHSTTLPSYPW9902-87-42 18:44:000.3[facility] CXTNSNEBKQ9521-21-79 18:44:001.5[facility] JfwecsuYNSDZSMIBJ5684-71-81 18:44:000.9 [facility] XjcfytkCDTQJSWPCG0140-54-63 18:44:002.0[facility]annHEMATOLOGY 2016-02-18 18:44:000.1[facility] WabhqcuJZRLOQDSEU9932-44-05 18:44:004.4[facility] DaxwqfnEUWWEKPNXH6807-89-68 18:44:0021.4[facility] MbflgwvRZAPFEBCCB2691-09-33 18:44:0071.3[facility]UR[facility] AND SRNYC2034-87-55 18:44:00Trace *ABN*(02/18/16 1:44 PM)[facility] LKUKH1912-41-06 18:44:005 [facility] ZTVFD0776-89-00 18:44:001[facility] MOAPO3305-81-82 18:44:00Negative (02/18/16 1:44 PM)[facility] MEXLE9512-41-83 18:44:00Negative (02/18/16 1:44 PM)[facility] UJXDQ6437-23-50 18:44:00Negative *NA*(02/18/16 1:44 PM)[facility] KDXLM0629-43-86 18:44:005.0[facility] DILUG7817-40-02 18:44:00 Slight *ABN*(02/18/16 1:44 PM)[facility] VAKSJ8367-13-03 18:44:00 1.018[facility]UR[facility] AND XFHYL6620-59-89 18:44:00Yellow *NA*(02/18/16 1:44 PM)[facility] EwljernRIFIWTDAN8218-65-46 12:12:4928[facility]annCHEMISTRY 2012-09-07 12:12:493.9[facility] KxxrcnmZCIOXNOWE7554-72-14 12:12:4925[facility] WjynbmfZPXIJRJCD8467-80-68 12:12:490.4[facility] MuiclawOCDOIJQQC2229-94-84 12:12:498.7[facility] RhxopjdZNGEDBZGZ0634-29-37 12:12:497.6[facility] ZOXLDVNST9076-03-44 12:12:498[facility] KgsxhwtJBMUTRWWP1503-96-94 12:12:4913.7 [facility] ReqnbhhCSHWWOVXU2966-13-41 12:12:4912[facility]annCHEMISTRY 2012-09-07 12:12:490.9[facility] UinntjpTDXBDJSGF5027-26-66 12:12:21321Zhhdtdih FfntrfxFDRBMJYBI7513-43-76 12:12:491.9[facility] BlaxvfbFYNFWBWMG4345-14-80 12:12:10350Nnqnofeq RvcbwbnSVUKWOWHC3242-05-25 12:12:4923[facility] ISFPTCELZ1567-32-47 12:12:493.7[facility] MqhgfpaCSQHJDLMX2188-28-40 12:12:4994 [facility] JwtdeawTNQDBDXYH1203-76-02 12:12:493.7[facility] HermannCHEMISTRY 2012-09-07 12:12:4914[facility] OcufhreQKHVBTSXX8398-37-26 12:12:79221Cyzegvjc HermannBEDSIDE GLUCOSE SXJKLTN9221-24-97 11:21:06545Ukclhcgc [facility]
== END 2020-02-07 16:23 | disposition home or self-care (01) ==
LOC: ER 14:25
DX: I12.0 Hypertensive chronic kidney disease with stage 5 chronic kidney disease or end stage renal disease (principal); E11.22 Type 2 diabetes mellitus with diabetic chronic kidney disease; N18.6 End stage renal disease; Z99.2 Dependence on renal dialysis
CPT/HCPCS: 93005; 99283

== ENCOUNTER 2020-02-13 11:17 | Inpatient (IN) | payer MEDICARE ==
[~2020-02-13] VITALS: Ht 160 cm; Wt 80.8 kg
[2020-02-13] MEDS ORDERED: PANTOPRAZOLE 40 MG 10ML VIAL IV STA (11:39)
[2020-02-13] MEDS ORDERED: SODIUM CHLORIDE 0.9% 250ML 250 ML IV ONE (12:00)
[2020-02-13 12:49] LABS: BASOPHILS # (AUTO) 0.1 (0.0-0.1); BASOPHILS % 0.4 % (0.0-1.0); EOSINOPHILS # (AUTO) 0.1 (0.0-0.4); EOSINOPHILS % 0.7 % (0.0-6.0); HEMATOCRIT 24.4 % (34.2-44.1); HEMOGLOBIN 7.4 g/dL (12.0-16.0); LYMPHOCYTES # (AUTO) 1.3 (1.0-3.2); LYMPHOCYTES % 8.5 % (18.0-39.1); MEAN CORPUSCULAR HEMOGLOBIN 26.7 pg (28-32); MEAN CORPUSCULAR HGB CONC 30.3 g/dL (31-35); MEAN CORPUSCULAR VOLUME 88.1 fL (81-99); MONOCYTES # (AUTO) 0.9 (0.2-0.8); MONOCYTES % 5.8 % (4.4-11.3); NEUTROPHILS # (AUTO) 12.8 (2.1-6.9); NEUTROPHILS % 83.9 % (38.7-80.0); PLATELET COUNT 254 x10e3/uL (140-360); RED BLOOD COUNT 2.77 x10e6/uL (3.6-5.1); RED CELL DISTRIBUTION WIDTH 17.5 % (11.7-14.4)
[2020-02-13 12:51] LABS: INR 1.66; PROTHROMBIN TIME 20.4 seconds (11.9-14.5)
[2020-02-13 12:52] LABS: PARTIAL THROMBOPLASTIN TIME 43.1 seconds (23.8-35.5)
[2020-02-13 13:05] LABS: CREATINE KINASE MB 0.7 ng/mL (0-5.0)
[2020-02-13 13:26] LABS: ALBUMIN 2.4 g/dL (3.5-5.0); ALBUMIN/GLOBULIN RATIO 0.5 (0.8-2.0); CALCIUM 7.9 mg/dL (8.4-10.2); CREATININE, SERUM 7.6 mg/dL (0.57-1.11)
[2020-02-13 13:27] LABS: BILIRUBIN,URINE SMALL (NEGATIVE); CLARITY,URINE CLOUDY (CLEAR); COLOR,URINE YELLOW (YELLOW); KETONES,URINE TRACE (NEGATIVE); LEUKOCYTE ESTERASE ,URINE LARGE (NEGATIVE); NITRITE,URINE NEGATIVE (NEGATIVE); PROTEIN,URINE DIPSTICK 1+ (NEGATIVE); URINE UROBILINOGEN 0.2 mg/dL (0.2 - 1)
[2020-02-13 13:44] LABS: AMORPHOUS SEDIMENT,URINE MODERATE (FEW); BACTERIA,URINE FEW /HPF; EPITHELIAL CELLS,URINE FEW /LPF; RBC,URINE 0-5 /HPF (0-5); TRANSITIONAL EPI CELLS,URINE MANY; YEAST,URINE MANY
[2020-02-13 13:45] LABS: WBC,URINE (MAN) >50 /HPF (0-5)
[2020-02-13] MEDS ORDERED: HYDROCODONE/APAP 7.5MG-325MG 1 EA TAB PO NR (14:00)
[2020-02-13] MEDS: ONDANSETRON HCL INJ 2MG/ML 2ML 2 MG/ML VIAL IV PRN (14:14)
[2020-02-13] MEDS ORDERED: HYDROCODONE/APAP 7.5MG-325MG 1 EA TAB ONE (14:14)
[2020-02-13] MEDS: CEFTRIAXONE SOD 1 GM/NS 50 ML 50 ML IV SCH (15:15)
[2020-02-13 16:11] VITALS: BP 132/70
[2020-02-13 17:07] VITALS: BP 132/70
[2020-02-13] MEDS: MORPHINE SULFATE 2 MG/ML SYR 1ML IV PRN (18:39)
[2020-02-13] MEDS ORDERED: CARVEDILOL12.5 MG PO (18:45)
[2020-02-13] MEDS ORDERED: vitamin d3 PO (18:45)
[2020-02-13] MEDS ORDERED: POTASSIUM CHLO20 ME1 PO (18:45)
[2020-02-13 19:58] VITALS: BP 138/61
[2020-02-13] MEDS ORDERED: PANTOPRAZOLE SOD 40 MG TABEC PO SCH (21:00)
[2020-02-13] MEDS: ATORVASTATIN 20 MG TAB PO SCH (21:47)
[2020-02-13 22:00] LABS: CREATINE KINASE MB 0.9 ng/mL (0-5.0)
[2020-02-13 22:34] VITALS: BP 138/61
[2020-02-14] VITALS (8 sets, daily range): BP systolic 106–157; BP diastolic 52–81
[2020-02-14] MEDS: MORPHINE SULFATE 2 MG/ML SYR 1ML IV PRN ×4 (02:31→22:00)
[2020-02-14] MEDS: ONDANSETRON HCL INJ 2MG/ML 2ML 2 MG/ML VIAL IV PRN ×4 (02:31→22:00)
[2020-02-14 06:52] LABS: BASOPHILS # (AUTO) 0.1 (0.0-0.1); BASOPHILS % 0.4 % (0.0-1.0); EOSINOPHILS # (AUTO) 0.1 (0.0-0.4); EOSINOPHILS % 0.6 % (0.0-6.0); LYMPHOCYTES # (AUTO) 1.7 (1.0-3.2); LYMPHOCYTES % 10.3 % (18.0-39.1); MEAN CORPUSCULAR HEMOGLOBIN 27.6 pg (28-32); MEAN CORPUSCULAR HGB CONC 32.4 g/dL (31-35); MONOCYTES % 6.5 % (4.4-11.3); NEUTROPHILS # (AUTO) 13.1 (2.1-6.9); NEUTROPHILS % 81.7 % (38.7-80.0); PLATELET COUNT 255 x10e3/uL (140-360); RED BLOOD COUNT 2.14 x10e6/uL (3.6-5.1); RED CELL DISTRIBUTION WIDTH 17.2 % (11.7-14.4)
[2020-02-14 06:55] LABS: ALBUMIN/GLOBULIN RATIO 0.6 (0.8-2.0); ANION GAP 17.8 mmol/L (8-16); CALCIUM 7.3 mg/dL (8.4-10.2); CREATININE, SERUM 6.91 mg/dL (0.57-1.11)
[2020-02-14 06:58] LABS: POTASSIUM 2.8 mmol/L (3.5-5.1)
[2020-02-14 07:00] LABS: HEMOGLOBIN 5.9 g/dL (12.0-16.0)
[2020-02-14 07:01] LABS: HEMATOCRIT 18.2 % (34.2-44.1)
[2020-02-14 07:28] LABS: ANISOCYTOSIS SLIGHT; HYPOCHROMASIA SLIGHT; TEAR DROP CELLS FEW
[2020-02-14 07:29] LABS: HELMET CELLS SLIGHT; OVALOCYTES FEW
[2020-02-14 07:30] LABS: PLATELET ESTIMATE ADEQUATE; PLATELET MORPHOLOGY COMMENT NORMAL; RBC MORPHOLOGY COMMENT ABNORMAL
[2020-02-14] MEDS ORDERED: GLIPIZIDE 5 MG TAB PO SCH (07:30)
[2020-02-14] MEDS ORDERED: POTASSIUM CHLORIDE 20 MEQ TAB CR PO ONE (07:45)
[2020-02-14] MEDS ORDERED: POTASSIUM CHLORIDE 10MEQ/100ML 200 ML IV ONE (07:45)
[2020-02-14] MEDS ORDERED: SODIUM CHLORIDE 0.9% 250ML 250 ML ONE ×4 (07:49→18:24)
[2020-02-14] MEDS ORDERED: SODIUM CHLORIDE 0.9% 250ML 250 ML IV ONE (07:50)
[2020-02-14] MEDS ORDERED: METFORMIN HCL 500 MG TAB PO SCH (08:00)
[2020-02-14 08:04] LABS: CREATINE KINASE MB 0.8 ng/mL (0-5.0)
[2020-02-14] MEDS: HYDRALAZINE HCL 25 MG TAB PO SCH (09:00)
[2020-02-14] MEDS: CARVEDILOL 12.5 MG TAB PO SCH ×2 (09:00→16:50)
[2020-02-14] MEDS: POTASSIUM CHLORIDE 20 MEQ TAB CR PO SCH (09:00)
[2020-02-14] MEDS: CALCITRIOL 0.25 MCG CAP PO SCH (09:00)
[2020-02-14] MEDS: PANTOPRAZOLE 40 MG 10ML VIAL IV SCH ×2 (09:00→16:50)
[2020-02-14] MEDS: FUROSEMIDE 40 MG TAB PO SCH (09:00)
[2020-02-14] MEDS: AMITRIPTYLINE HCL 25 MG TAB PO SCH (09:00)
[2020-02-14] MEDS ORDERED: CARVEDILOL 12.5 MG TAB PO SCH (09:00)
[2020-02-14] MEDS: CEFTRIAXONE SOD 1 GM/NS 50 ML 50 ML IV SCH (14:45)
[2020-02-14 14:51] LABS: IRON 24 ug/dL (50-170); TRANSFERRIN < 70 mg/dL (180-382)
[2020-02-14 14:58] LABS: BODY FLUID APPEARANCE CLEAR; BODY FLUID COLOR COLORLESS; BODY FLUID TYPE PLEURAL; RBC,BODY FLUID 7 cells/uL; WBC,BODY FLUID 2 cells/uL
[2020-02-14 15:10] LABS: FERRITIN 1825.65 ng/mL (4.63-204.00)
[2020-02-14] MEDS: SODIUM THIOSULFATE 100 ML IV SCH (16:00)
[2020-02-14] MEDS ORDERED: EPOETIN ALFA-EPBX 10,000 UNIT/ML VIAL SC SCH (16:00)
[2020-02-14] MEDS ORDERED: SODIUM THIOSULFATE 25 GM in SODIUM CHLORIDE 0.9% 100 ML 100 ML IV SCH (16:00)
[2020-02-14 16:38] LABS: HEMATOCRIT 23.2 % (34.2-44.1); HEMOGLOBIN 7.4 g/dL (12.0-16.0)
[2020-02-14] MEDS: ATORVASTATIN 20 MG TAB PO SCH (21:00)
[2020-02-14] MEDS ORDERED: BISACODYL 5 MG TAB EC PO ONE ×3 (21:30→22:30)
[2020-02-15] VITALS (10 sets, daily range): BP systolic 105–139; BP diastolic 49–78
[2020-02-15] MEDS ORDERED: PEG (High)/E-LYTE SOLN 4,000 ML BTL PO ONE (01:15)
[2020-02-15] MEDS ORDERED: CITRATE OF MAGNESIA 300ML BOTTLE PO ONE ×4 (02:30→10:50)
[2020-02-15 06:12] LABS: BASOPHILS % 0.2 % (0.0-1.0); EOSINOPHILS % 0.2 % (0.0-6.0); HEMATOCRIT 26.6 % (34.2-44.1); HEMOGLOBIN 9.1 g/dL (12.0-16.0); LYMPHOCYTES # (AUTO) 1.1 (1.0-3.2); LYMPHOCYTES % 6.8 % (18.0-39.1); MEAN CORPUSCULAR HEMOGLOBIN 29.7 pg (28-32); MEAN CORPUSCULAR HGB CONC 34.2 g/dL (31-35); MEAN CORPUSCULAR VOLUME 86.9 fL (81-99); MONOCYTES # (AUTO) 0.6 (0.2-0.8); MONOCYTES % 3.9 % (4.4-11.3); NEUTROPHILS # (AUTO) 14.3 (2.1-6.9); NEUTROPHILS % 88.2 % (38.7-80.0); PLATELET COUNT 214 x10e3/uL (140-360); RED BLOOD COUNT 3.06 x10e6/uL (3.6-5.1); RED CELL DISTRIBUTION WIDTH 16.7 % (11.7-14.4)
[2020-02-15 06:46] LABS: ALBUMIN 1.1 g/dL (3.5-5.0); ALBUMIN/GLOBULIN RATIO 0.2 (0.8-2.0); CALCIUM 7.8 mg/dL (8.4-10.2); CREATININE, SERUM 6.46 mg/dL (0.57-1.11); MAGNESIUM 1.5 MG/DL (1.3-2.1); PHOSPHORUS 5.2 MG/DL (2.3-4.7)
[2020-02-15] MEDS: CARVEDILOL 12.5 MG TAB PO SCH ×2 (09:00→18:25)
[2020-02-15] MEDS: FUROSEMIDE 40 MG TAB PO SCH (09:00)
[2020-02-15] MEDS: HYDRALAZINE HCL 25 MG TAB PO SCH (09:00)
[2020-02-15] MEDS: CALCITRIOL 0.25 MCG CAP PO SCH (09:00)
[2020-02-15] MEDS: PANTOPRAZOLE 40 MG 10ML VIAL IV SCH ×2 (09:00→18:10)
[2020-02-15] MEDS: POTASSIUM CHLORIDE 20 MEQ TAB CR PO SCH (09:00)
[2020-02-15] MEDS: IRON SUCROSE 100 MG in SODIUM CHLORIDE 0.9% 100 ML 100 ML IV SCH (09:00)
[2020-02-15] MEDS: AMITRIPTYLINE HCL 25 MG TAB PO SCH (09:00)
[2020-02-15] MEDS: BALSAM PERU/CASTOR OIL 60 GM OINT...G. TP SCH (09:00)
[2020-02-15] MEDS: FLUCONAZOLE 100 MG TAB PO SCH (10:00)
[2020-02-15] MEDS ORDERED: BISACODYL 5 MG TAB EC PO ONE ×4 (10:50→11:50)
[2020-02-15] MEDS ORDERED: BISACODYL 10 MG SUPP PR ONE (11:05)
[2020-02-15] MEDS ORDERED: EPHEDRINE SULFATE INJ 50 MG/ML VIAL ONE (14:03)
[2020-02-15] MEDS ORDERED: PHENYLEPHRINE HCL 1% 10 MG/ML VIAL ONE (14:03)
[2020-02-15] MEDS ORDERED: PROPOFOL IV EMULSION 10 MG/ML 20 ML VIAL ONE (14:03)
[2020-02-15] MEDS ORDERED: GLUCAGON FOR INJ 1 MG VIAL ONE (14:03)
[2020-02-15] MEDS: CEFTRIAXONE SOD 1 GM/NS 50 ML 50 ML IV SCH (14:05)
[2020-02-15] MEDS ORDERED: SODIUM CHLORIDE 0.9% 250ML 250 ML ONE (17:03)
[2020-02-15] MEDS: ATORVASTATIN 20 MG TAB PO SCH (22:02)
[2020-02-16] VITALS (8 sets, daily range): BP systolic 115–145; BP diastolic 70–74
[2020-02-16] MEDS: MORPHINE SULFATE 2 MG/ML SYR 1ML IV PRN ×2 (05:21→12:06)
[2020-02-16 06:07] LABS: BASOPHILS % 0.1 % (0.0-1.0); EOSINOPHILS # (AUTO) 0.1 (0.0-0.4); EOSINOPHILS % 0.3 % (0.0-6.0); HEMATOCRIT 26.5 % (34.2-44.1); HEMOGLOBIN 8.7 g/dL (12.0-16.0); LYMPHOCYTES # (AUTO) 1.3 (1.0-3.2); LYMPHOCYTES % 7.7 % (18.0-39.1); MEAN CORPUSCULAR HEMOGLOBIN 28.3 pg (28-32); MEAN CORPUSCULAR HGB CONC 32.8 g/dL (31-35); MEAN CORPUSCULAR VOLUME 86.3 fL (81-99); MONOCYTES # (AUTO) 0.6 (0.2-0.8); MONOCYTES % 3.5 % (4.4-11.3); NEUTROPHILS # (AUTO) 14.7 (2.1-6.9); PLATELET COUNT 228 x10e3/uL (140-360); RED BLOOD COUNT 3.07 x10e6/uL (3.6-5.1); RED CELL DISTRIBUTION WIDTH 17.1 % (11.7-14.4)
[2020-02-16 06:38] LABS: ANION GAP 26.7 mmol/L (8-16); CALCIUM 7.7 mg/dL (8.4-10.2); CREATININE, SERUM 6.19 mg/dL (0.57-1.11); POTASSIUM 3.7 mmol/L (3.5-5.1)
[2020-02-16] MEDS ORDERED: SODIUM CHLORIDE 0.9% 250ML 250 ML ONE (08:55)
[2020-02-16] MEDS: POTASSIUM CHLORIDE 20 MEQ TAB CR PO SCH (09:00)
[2020-02-16] MEDS: PANTOPRAZOLE 40 MG 10ML VIAL IV SCH ×2 (09:00→16:17)
[2020-02-16] MEDS: IRON SUCROSE 100 MG in SODIUM CHLORIDE 0.9% 100 ML 100 ML IV SCH (09:00)
[2020-02-16] MEDS: FUROSEMIDE 40 MG TAB PO SCH (09:00)
[2020-02-16] MEDS: CARVEDILOL 12.5 MG TAB PO SCH ×2 (09:00→16:17)
[2020-02-16] MEDS: BALSAM PERU/CASTOR OIL 60 GM OINT...G. TP SCH (09:00)
[2020-02-16] MEDS: FLUCONAZOLE 100 MG TAB PO SCH (09:00)
[2020-02-16] MEDS: CALCITRIOL 0.25 MCG CAP PO SCH (09:00)
[2020-02-16] MEDS: HYDRALAZINE HCL 25 MG TAB PO SCH (09:00)
[2020-02-16] MEDS: AMITRIPTYLINE HCL 25 MG TAB PO SCH (09:00)
[2020-02-16] MEDS: ONDANSETRON HCL INJ 2MG/ML 2ML 2 MG/ML VIAL IV PRN (12:07)
[2020-02-16] MEDS ORDERED: ACETAMINOPHEN 325 MG TAB PO PRN (13:30)
[2020-02-16] MEDS: CEFTRIAXONE SOD 1 GM/NS 50 ML 50 ML IV SCH (14:45)
[2020-02-16] MEDS: ATORVASTATIN 20 MG TAB PO SCH (21:00)
[2020-02-17] VITALS (8 sets, daily range): BP systolic 122–136; BP diastolic 64–83
[2020-02-17] MEDS: ONDANSETRON HCL INJ 2MG/ML 2ML 2 MG/ML VIAL IV PRN ×3 (03:15→21:32)
[2020-02-17] MEDS: MORPHINE SULFATE 2 MG/ML SYR 1ML IV PRN ×4 (03:15→21:32)
[2020-02-17 06:42] LABS: BASOPHILS % 0.2 % (0.0-1.0); EOSINOPHILS # (AUTO) 0.1 (0.0-0.4); EOSINOPHILS % 1.1 % (0.0-6.0); HEMATOCRIT 24.6 % (34.2-44.1); LYMPHOCYTES # (AUTO) 1.4 (1.0-3.2); LYMPHOCYTES % 11.3 % (18.0-39.1); MEAN CORPUSCULAR HEMOGLOBIN 28.4 pg (28-32); MEAN CORPUSCULAR HGB CONC 32.5 g/dL (31-35); MEAN CORPUSCULAR VOLUME 87.2 fL (81-99); MONOCYTES # (AUTO) 0.7 (0.2-0.8); MONOCYTES % 5.7 % (4.4-11.3); NEUTROPHILS # (AUTO) 10.1 (2.1-6.9); NEUTROPHILS % 81.3 % (38.7-80.0); PLATELET COUNT 218 x10e3/uL (140-360); RED BLOOD COUNT 2.82 x10e6/uL (3.6-5.1); RED CELL DISTRIBUTION WIDTH 17.3 % (11.7-14.4)
[2020-02-17 06:52] LABS: ANION GAP 21.6 mmol/L (8-16); CALCIUM 7.8 mg/dL (8.4-10.2); CREATININE, SERUM 6.24 mg/dL (0.57-1.11); MAGNESIUM 1.7 MG/DL (1.3-2.1); PHOSPHORUS 4.6 MG/DL (2.3-4.7); POTASSIUM 3.6 mmol/L (3.5-5.1)
[2020-02-17] MEDS: BALSAM PERU/CASTOR OIL 60 GM OINT...G. TP SCH ×2 (09:00→11:00)
[2020-02-17] MEDS: IRON SUCROSE 100 MG in SODIUM CHLORIDE 0.9% 100 ML 100 ML IV SCH (09:09)
[2020-02-17] MEDS: PANTOPRAZOLE 40 MG 10ML VIAL IV SCH ×2 (09:09→17:13)
[2020-02-17] MEDS: HYDRALAZINE HCL 25 MG TAB PO SCH (09:13)
[2020-02-17] MEDS: FLUCONAZOLE 100 MG TAB PO SCH (09:14)
[2020-02-17] MEDS: CARVEDILOL 12.5 MG TAB PO SCH ×2 (09:14→17:29)
[2020-02-17] MEDS: AMITRIPTYLINE HCL 25 MG TAB PO SCH (09:14)
[2020-02-17] MEDS: CALCITRIOL 0.25 MCG CAP PO SCH (09:15)
[2020-02-17] MEDS: POTASSIUM CHLORIDE 20 MEQ TAB CR PO SCH (09:15)
[2020-02-17] MEDS: FUROSEMIDE 40 MG TAB PO SCH (09:23)
[2020-02-17] MEDS: SODIUM THIOSULFATE 100 ML IV SCH (17:11)
[2020-02-17] MEDS: CEFTRIAXONE SOD 1 GM/NS 50 ML 50 ML IV SCH (19:23)
[2020-02-17] MEDS: ATORVASTATIN 20 MG TAB PO SCH (21:32)
[2020-02-18] VITALS (8 sets, daily range): BP systolic 124–139; BP diastolic 60–81
[2020-02-18] MEDS: ONDANSETRON HCL INJ 2MG/ML 2ML 2 MG/ML VIAL IV PRN ×2 (04:49→11:13)
[2020-02-18 05:14] LABS: BASOPHILS % 0.2 % (0.0-1.0); EOSINOPHILS # (AUTO) 0.1 (0.0-0.4); EOSINOPHILS % 0.7 % (0.0-6.0); HEMATOCRIT 23.9 % (34.2-44.1); HEMOGLOBIN 7.8 g/dL (12.0-16.0); LYMPHOCYTES # (AUTO) 1.3 (1.0-3.2); LYMPHOCYTES % 9.5 % (18.0-39.1); MEAN CORPUSCULAR HEMOGLOBIN 28.5 pg (28-32); MEAN CORPUSCULAR HGB CONC 32.6 g/dL (31-35); MEAN CORPUSCULAR VOLUME 87.2 fL (81-99); MONOCYTES # (AUTO) 0.7 (0.2-0.8); MONOCYTES % 5.4 % (4.4-11.3); NEUTROPHILS # (AUTO) 11.1 (2.1-6.9); NEUTROPHILS % 83.6 % (38.7-80.0); PLATELET COUNT 271 x10e3/uL (140-360); RED BLOOD COUNT 2.74 x10e6/uL (3.6-5.1); RED CELL DISTRIBUTION WIDTH 17.4 % (11.7-14.4)
[2020-02-18 05:33] LABS: ANION GAP 28.6 mmol/L (8-16); CREATININE, SERUM 6.22 mg/dL (0.57-1.11); MAGNESIUM 1.7 MG/DL (1.3-2.1); PHOSPHORUS 4.3 MG/DL (2.3-4.7); POTASSIUM 3.6 mmol/L (3.5-5.1)
[2020-02-18] MEDS: PANTOPRAZOLE 40 MG 10ML VIAL IV SCH ×2 (10:47→17:00)
[2020-02-18] MEDS: IRON SUCROSE 100 MG in SODIUM CHLORIDE 0.9% 100 ML 100 ML IV SCH (10:52)
[2020-02-18] MEDS: HYDRALAZINE HCL 25 MG TAB PO SCH (10:54)
[2020-02-18] MEDS: FLUCONAZOLE 100 MG TAB PO SCH (10:55)
[2020-02-18] MEDS: CARVEDILOL 12.5 MG TAB PO SCH ×2 (10:55→17:00)
[2020-02-18] MEDS: AMITRIPTYLINE HCL 25 MG TAB PO SCH (10:55)
[2020-02-18] MEDS: POTASSIUM CHLORIDE 20 MEQ TAB CR PO SCH (10:56)
[2020-02-18] MEDS: CALCITRIOL 0.25 MCG CAP PO SCH (10:56)
[2020-02-18] MEDS: FUROSEMIDE 40 MG TAB PO SCH (10:59)
[2020-02-18] MEDS: BALSAM PERU/CASTOR OIL 60 GM OINT...G. TP SCH (11:56)
[2020-02-18] MEDS ORDERED: HYDROCODONE/APAP 5MG-325MG TAB PO PRN (12:15)
[2020-02-18] MEDS: CEFTRIAXONE SOD 1 GM/NS 50 ML 50 ML IV SCH (15:05)
[2020-02-18] MEDS: MORPHINE SULFATE 2 MG/ML SYR 1ML IV PRN (15:06)
[2020-02-18] MEDS: ATORVASTATIN 20 MG TAB PO SCH (20:25)
[2020-02-19] VITALS: BP 138/67
[2020-02-19 04:00] VITALS: BP 133/67
[2020-02-19 06:38] LABS: BASOPHILS % 0.1 % (0.0-1.0); EOSINOPHILS # (AUTO) 0.2 (0.0-0.4); EOSINOPHILS % 1.3 % (0.0-6.0); HEMOGLOBIN 7.5 g/dL (12.0-16.0); LYMPHOCYTES # (AUTO) 1.9 (1.0-3.2); LYMPHOCYTES % 13.3 % (18.0-39.1); MEAN CORPUSCULAR HGB CONC 33.5 g/dL (31-35); MEAN CORPUSCULAR VOLUME 89.6 fL (81-99); MONOCYTES # (AUTO) 0.7 (0.2-0.8); MONOCYTES % 4.6 % (4.4-11.3); NEUTROPHILS # (AUTO) 11.4 (2.1-6.9); NEUTROPHILS % 80.2 % (38.7-80.0); PLATELET COUNT 173 x10e3/uL (140-360)
[2020-02-19 06:42] LABS: HEMATOCRIT 22.4 % (34.2-44.1)
[2020-02-19] MEDS ORDERED: AMITRIPTYLINE H25 MG PO (06:53)
[2020-02-19] MEDS ORDERED: CYCLOBENZAPRINE5 MG PO (06:53)
[2020-02-19] MEDS ORDERED: COREG12.5 MG PO (06:53)
[2020-02-19] MEDS ORDERED: PANTOPRAZOLE SO40 MG PO (06:53)
[2020-02-19] MEDS ORDERED: DIFLUCAN100 MG PO (06:53)
[2020-02-19 07:41] VITALS: BP 130/69
[2020-02-19 07:42] LABS: CREATININE, SERUM 6.22 mg/dL (0.57-1.11)
[2020-02-19 08:57] VITALS: BP 130/69
[2020-02-19] MEDS: HYDRALAZINE HCL 25 MG TAB PO SCH (09:00)
[2020-02-19] MEDS: IRON SUCROSE 100 MG in SODIUM CHLORIDE 0.9% 100 ML 100 ML IV SCH (09:00)
[2020-02-19] MEDS: CARVEDILOL 12.5 MG TAB PO SCH (09:00)
[2020-02-19] MEDS: BALSAM PERU/CASTOR OIL 60 GM OINT...G. TP SCH (09:00)
[2020-02-19] MEDS: AMITRIPTYLINE HCL 25 MG TAB PO SCH (09:00)
[2020-02-19] MEDS: FUROSEMIDE 40 MG TAB PO SCH (09:00)
[2020-02-19] MEDS: POTASSIUM CHLORIDE 20 MEQ TAB CR PO SCH (09:00)
[2020-02-19] MEDS: PANTOPRAZOLE 40 MG 10ML VIAL IV SCH (09:00)
[2020-02-19] MEDS: CALCITRIOL 0.25 MCG CAP PO SCH (09:00)
[2020-02-19] MEDS: FLUCONAZOLE 100 MG TAB PO SCH (09:00)
[2020-02-19 11:23] VITALS: BP 105/59
[2020-02-19] MEDS ORDERED: SODIUM BICARBONATE 650 MG TAB PO SCH (17:00)
== END 2020-02-19 14:49 | disposition home or self-care (01) | DRG 757 ==
LOC: ER 12:01 → ERHOLD 12:50 → MED/SURG2 15:28
PROVIDERS: ADMIT Internal Medicine; ATTEND Internal Medicine
PROC: 02HV33Z Insertion of Infusion Device into Superior Vena Cava, Percutaneous Approach (ICD-10-PCS; principal; 2020-02-14)
PROC: B548ZZA Ultrasonography of Superior Vena Cava, Guidance (ICD-10-PCS; 2020-02-14)
PROC: 30233N1 Transfusion of Nonautologous Red Blood Cells into Peripheral Vein, Percutaneous Approach (ICD-10-PCS; 2020-02-14)
PROC: 0DBH8ZX Excision of Cecum, Via Natural or Artificial Opening Endoscopic, Diagnostic (ICD-10-PCS; 2020-02-15)
DX: B37.41 Candidal cystitis and urethritis (principal); N18.6 End stage renal disease; I13.11 Hypertensive heart and chronic kidney disease without heart failure, with stage 5 chronic kidney disease, or end stage renal disease; E83.59 Other disorders of calcium metabolism; E11.22 Type 2 diabetes mellitus with diabetic chronic kidney disease; E86.0 Dehydration; L89.152 Pressure ulcer of sacral region, stage 2; Z99.2 Dependence on renal dialysis; E11.42 Type 2 diabetes mellitus with diabetic polyneuropathy; D64.9 Anemia, unspecified; K80.20 Calculus of gallbladder without cholecystitis without obstruction; E87.6 Hypokalemia; D63.8 Anemia in other chronic diseases classified elsewhere; K63.5 Polyp of colon; K64.8 Other hemorrhoids; Z11.59 Encounter for screening for other viral diseases; Z79.84 Long term (current) use of oral hypoglycemic drugs; D63.1 Anemia in chronic kidney disease
CPT/HCPCS: 36415; 36556; 45378; 71045; 72132; 74470; 76937; 77001; 80048; 80053; 81001; 82270; 82550; 82553; 82607; 82728; 82746; 82948; 83540; 83735; 84100; 84466; 84484; 85014; 85018; 85025; 85045; 85610; 85730; 86850; 86900; 86920; 87040; 87070; 87086; 87205; 88305; 89051; 93005; 99251; 99284; C1769; J0696; J1610; J1756; J2270; J2370; J2405; J3480; J7050; P9016; U0002